=== PATIENT | male | born 1960 | race Caucasian/White ===

== ENCOUNTER 2022-11-26 11:56 | Inpatient (IN) | payer SELFPAY ==
[2022-11-26] VITALS (8 sets, daily range): BP systolic 136–173; BP diastolic 61–118; PULSE 50–70; RESP 16–18; TEMP 36.4–36.8; O2SAT 95–100; BMI 23.6; BMI 22.5
--- NOTE | 2022-11-26 12:41 | EKG12_ITS ---
Test Reason : NEURO Blood Pressure : / mmHG Vent. Rate : 061 BPM Atrial Rate : 061 BPM P-R Int : 170 ms QRS Dur : 088 ms QT Int : 434 ms P-R-T Axes : 072 043 048 degrees QTc Int : 436 ms Normal sinus rhythm with sinus arrhythmia Normal ECG Confirmed by JOSE NEGRON, MAEVE ([id number]), advertising editor CLIFFORD PHILLIPS ([id number]) on 11/27/2022 2:22:19 PM Referred By: Confirmed By:MAEVE GARCIA MD
--- NOTE | 2022-11-26 12:50 | CT_ITS ---
INDICATION: Neuro deficit, acute, stroke suspected EXAMINATION: CT BRAIN WITH CONTRAST TECHNIQUE: Noncontrast axial images were obtained of the brain. Subsequently, routine carotid CT angiogram protocol was performed without and with IV contrast. In addition, images were obtained of the [place] of [place]. NASCET criteria using the distal ICAs for comparison were used for evaluation of stenoses. 3D reconstructions were reviewed. A radiation dose optimization technique was used for this scan. IV Contrast dosage and agent: 100 cc of [id number] COMPARISON: No relevant prior comparison study available FINDINGS: --CT BRAIN: BRAIN PARENCHYMA: No intra- or extra-axial hemorrhage. No evidence of acute infarct. No intracranial mass or mass effect. There is preservation of the person/white matter interface. Posterior fossa structures are unremarkable. CSF SPACES: Appropriate for age. No hydrocephalus. Basal cisterns are patent. CALVARIUM, SKULL BASE, PARANASAL SINUSES AND MASTOID AIR CELLS: Clear. No discrete lytic or blastic abnormalities. ASPECTS Score for Acute Strokes: 10 --CTA NECK: AORTIC ARCH AND BRANCHES: Normal anatomy, patent. RIGHT CCA: No occlusion, significant stenosis or dissection. RIGHT ICA: No occlusion, significant stenosis or dissection. LEFT CCA: No occlusion, significant stenosis or dissection. LEFT ICA: No occlusion, significant stenosis or dissection. RIGHT VERTEBRAL ARTERY: No occlusion, significant stenosis or dissection. LEFT VERTEBRAL ARTERY: No occlusion, significant stenosis or dissection. NECK SOFT TISSUES: Unremarkable. There are emphysematous changes within the visualized lungs. --CTA HEAD: --Anterior circulation: ICAs: No significant stenosis at the intracranial/visualized segments. ACAs: No significant stenosis at the visualized segments. ACOM: Present. MCAs: No significant stenosis at the visualized segments. --Posterior circulation: PCOMs: Within normal limits. pci security consultant: No significant stenosis at the visualized segments. BASILAR ARTERY: No significant stenosis. VERTEBRAL ARTERIES: No significant stenosis at the intradural/visualized segments. No evidence of intracranial aneurysm or vascular malformation. IMPRESSION: Within normal limits CT Brain, CTA Carotid, and CTA Brain. Emphysema. N.B. : The above Results were Read Back by Lo Bishop MD to Noé Vasquez DO, and understanding confirmed on 11/26/2022 13:29:32 (ET). Electronically Signed: Lo Bishop MD at 13:31 EDT , INDICATION: Neuro deficit, acute, stroke suspected EXAMINATION: CT BRAIN - CT Head Stroke Protocol W/O Contrast Injection TECHNIQUE: Multiple axial images were obtained of the head without intravenous contrast. A radiation dose optimization technique was used for this scan. IV Contrast dosage and agent: None. RADIATION DOSAGE (If Supplied By Facility): CTDIvol = ( ) mGy, DLP = ( ) mGycm COMPARISON: No relevant prior comparison study available FINDINGS: BRAIN PARENCHYMA: No intra- or extra-axial hemorrhage. No evidence of acute infarct. No intracranial mass or mass effect. There is preservation of the person/white matter interface. Posterior fossa structures are unremarkable. CSF SPACES: Appropriate for age. No hydrocephalus. Basal cisterns are patent. CALVARIUM, SKULL BASE, PARANASAL SINUSES AND MASTOID AIR CELLS: Clear. No discrete lytic or blastic abnormalities. ORBITS: Both globes, extraocular muscles, optic nerves and retrobulbar fat appear unremarkable. ASPECTS Score for Acute Strokes: 10 CT/STROKE CTA Head AND Neck W/Con IMPRESSION: No acute intracranial process. N.B. : The above Results were Read Back by Lo Bishop MD to Noé Vasquez DO, and understanding confirmed on 11/26/2022 13:29:32 (ET). Electronically Signed: Lo Bishop MD at 13:21 EDT ,
--- NOTE | 2022-11-26 12:55 | RAD_ITS ---
STUDY: X-RAY CHEST REASON FOR EXAM: Male, 62 years old. Neuro deficit, acute, stroke suspected TECHNIQUE: AP and lateral views of the chest. COMPARISON: None. FINDINGS: The lungs are clear and expanded. There is no demonstrated pleural abnormality. Normal size heart. Normal mediastinum and liv. Normal visualized pulmonary arteries. Normal visualized aortic arch and descending thoracic aorta. There is demineralization of the osseous structures. Normal visualized ribs, clavicles, and shoulders. There is no demonstrated abnormality of the visualized soft tissue structures of the upper abdomen. RAD/Chest 1 View IMPRESSION: No acute abnormality seen. Electronically Signed: Siva De Luna MD at 13:55 EDT ,
[2022-11-26 13:05] LABS: Basophil# 0.04 X10^3/uL; Basophil% 0.7 % (0-1); Eosinophil# 0.16 X10^3/uL; Eosinophils% 2.6 % (0-5); Hematocrit 47.6 % (40-54); Hemoglobin 15.8 g/dL (13.0-16.5); Lymphocyte % 21.5 % (19-41); Mean Corp Hgb Conc 33.2 g/dL (32-36); Mean Corpuscular Hgb 32.6 pg (27.0-32.0); Mean Corpuscular Volume 98.3 fL (80-94); Mean Platelet Vol. 10.3 fl (6.2-12.0); Monocyte% 8.3 % (0-10); NRBC Flagged by Analyzer 0 % (0-5); Neutrophil # 4.04 X10^3/uL (2.7-7.7); Neutrophil % 66.7 % (47-70); POSITIVE COUNT YES; RBC Distribution Width CV 13.7 % (11.6-14.6); Red Blood Count 4.84 M/mm3 (4.6-6.2); White Blood Count 6.1 K/mm3 (4.4-11.0)
[2022-11-26 13:26] LABS: International Normalized Ratio 1.1
[2022-11-26 13:27] LABS: Partial Thromboplast Time 28.9 Seconds (24.1-36.2)
[2022-11-26 13:39] LABS: Anion Gap 5 (5-15); BUN 19 mg/dL (7-18); BUN/Creat Ratio 21.7 RATIO (10-20); Calcium,Total 8.8 mg/dL (8.5-10.1); Chloride 111 mmol/L (98-107); Creatinine, Serum 0.88 mg/dL (0.70-1.30); EST Glomerular Filtration Rate 93 mL/min (>60); Est Glom Filt Rate - Afr Amer 113 mL/min (>60); Glucose 115 mg/dL (74-106); Potassium 3.5 mmol/L (3.5-5.1); Sodium Level 140 mmol/L (136-145); Troponin-I HS 7 pg/mL (3.0-78.0)
--- NOTE | 2022-11-26 13:59 | CM.ED ---
Social Work Referral Source: case find Referral Reason: resources SW met with patient and patient's and introduced herself and role as [facility] SW. Patient agreeable to speak with his present. SW inquired about patient's insurance or application for Medicare. Patient reports he has applied for Medicare and should be insured starting in January. Patient does not believe he will qualify for Medicaid but was receptive towards accepting Medicaid application to review. SW also reviewed local community resources. No other needs voiced at this time, SW remains available if needs arise. Coco Aguilar OPERATIONS MANAGER, JESSENIA
[2022-11-26 14:21] LABS: Differential Indicated SCAN CRITERIA MET; Platelet Estimate ADEQUATE (ADEQ)
--- NOTE | 2022-11-26 15:24 | ED.RN ---
PER DR. CARRILLO, [facility] Q4 HRS
--- NOTE | 2022-11-26 15:25 | PCM.HP.STD ---
HPI - General General Date of Admission: 11/26/22 Date of Service: 11/26/22 HPI Narrative CHARAN GARCIA, is a 62 M who presents difficulty with coordination involving the left side. Per patient symptoms started 4 days prior to his admission. In addition to difficulty with dexterity and motor function according to the patient involving the left upper extremity he also did experience some numbness on the left side as well as some difficulty with gait. Per family patient also had some speech difficulty which has since resolved. In view of of the intermittent nature of his symptoms he presented to the emergency department initial head CT came back negative subsequently admitted to a monitored bed for further manner [facility] Medical History GERD (gastroesophageal reflux disease) Home Medications esomeprazole magnesium 20 mg capsule,delayed release 20 mg PO DAILY 11/26/22 [History Last Taken 11/26/22] naproxen 500 mg tablet 500 mg PO BID PRN pain 11/26/22 [History Last Taken Unknown] olopatadine 0.2 % eye drops (Eye Allergy Itch Relief) 1 drp EACH EYE DAILY PRN ALLERGIES 11/26/22 [History Last Taken Unknown] Allergy/AdvReac Type Severity Reaction Status Date / Time No Known Allergies Allergy Verified 11/26/22 12:00 Family History (Updated 11/26/22 @ 16:[address] Charan Martinez MD) Mother CVA (cerebral vascular accident) Surgical History (Updated 11/26/22 @ 15:30 by Quynh Goldberg) History of ankle surgery Social History Smoking Status: Current every day smoker tobacco type: cigarettes Vital Signs Vital Signs Vital Signs: 11/26/22 11:58 11/26/22 12:44 11/26/22 12:44 Temperature 97.5 F L Temperature Source Temporal Pulse Rate 70 Respiratory Rate 16 Blood Pressure 138/118 H 148/72 H 136/61 H Blood Pressure Mean 124 97 86 Pulse Ox 100 Oxygen Delivery Method Room Air 11/26/22 14:00 11/26/22 15:00 Temperature Temperature Source Pulse Rate 50 L Respiratory Rate 18 Blood Pressure 136/61 H 154/71 H Blood Pressure Mean 86 98 Pulse Ox 97 Oxygen Delivery Method Room Air Weight Weight: 72.575 kg Body Mass Index (BMI) 23.6 Physical Exam Narrative GENERAL: cooperative HEENT: Atraumatic; normocephalic EYES; Anicteric, Normal Conjunctiva NECK; supple, normal thyroid, RESPIRATORY: Diminished to auscultation CARDIOVASCULAR: Regular S1 S2, GI: soft, normoactive bowel sounds, : No Renal angle tenderness; EXTREMITIES: No edema, no clubbing, MUSCULOSKELETAL: no muscle wasting NEURO: Awake; no lateralizing signs. SKIN: No Rash PSYCH; Flat affect Results Lab / Micro Data 11/26/22 12:40 11/26/22 12:40 Labs: Laboratory Results - last 24 hr 11/26/22 12:40: WBC 6.1, RBC 4.84, Hgb 15.8, Hct 47.6, MCV 98.3 H, MCH 32.6 H, MCHC 33.2, RDW Std Deviation 50.0 H, RDW Coeff of Birdie 13.7, Plt Count , MPV 10.3, Immature Gran % (Auto) 0.200, Neut % (Auto) 66.7, Lymph % (Auto) 21.5, [place] % (Auto) 8.3, Eos % (Auto) 2.6, Baso % (Auto) 0.7, Absolute Neuts (auto) 4.0, Absolute Lymphs (auto) 1.30, Nucleated RBC % 0, Platelet Estimate ADEQUATE, PT Cancelled, INR Cancelled, APTT Cancelled, Sodium 140, Potassium 3.5, Chloride 111 H, Carbon Dioxide 24.0, Anion Gap 5, BUN 19 H, Creatinine 0.88, Estim Creat Clear Calc 84.80, Est GFR (MDRD) Af Amer 113, Est GFR (MDRD) Non-Af 93, BUN/Creatinine Ratio 21.7 H, Glucose 115 H, Calcium 8.8, Troponin I High Sens 7 11/26/22 13:03: PT 14.0, INR 1.1, APTT 28.9 Radiology Impression Head/Neck CTA 11/26/22 12:50 IMPRESSION: No acute intracranial process. N.B. : The above Results were Read Back by Lo Bishop MD to Noé Vasquez DO, and understanding confirmed on 11/26/2022 13:29:32 (ET). Electronically Signed: Lo Bishop MD at 13:21 EDT Reading Location ID and State: [facility] / [place] Tel , Service support , ADDENDUM: 11/26/22 1338 IMPRESSION: No acute intracranial process. N.B. : The above Results were Read Back by Lo Bishop MD to Noé Vasquez DO, and understanding confirmed on 11/26/2022 13:29:32 (ET). Electronically Signed: Lo Bishop MD at 13:21 EDT , Assessment & Plan Assessment/Plan (1) TIA (transient ischemic attack): PLAN: Plan Patient is a 62-year-old gentleman presenting with paresthesias in multiple difficulty involving the left upper extremity 1. Transient ischemic attack ? Patient presented with multiple complaints including left upper arm paresthesias, gait disturbance, intermittent speech difficulty which has since resolved. Admitted to monitored bed ordered neurochecks every [address] angio of the head and neck in the emergency department which came back negative subsequently placed on a monitored bed. Ordered MRI of the head as well as cervical spine without contrast. Patient started on antiplatelet therapy with aspirin and statin therapy with atorvastatin 2. Elevated blood pressure ? Patient is not a known hypertensive monitoring 3. GERD ? Patient is on [id number] PPI prescribed Protonix in the hospital 4. Tobacco dependence - Counseled on cessation, offered nicotine patch for tobacco cravings 5. DVT prophylaxis - On enoxaparin Time spent in the patient's overall evaluation,decision-making process, review of diagnostic data, adjustment of management, discussion with other providers, nursing nursing and ancillary staff involved in patient's care documentation, 75 minutes Advance planning; did discuss with the patient and family regarding advanced directives as well as CODE STATUS. Did explain the various scenarios involved ( FULL CODE, DNR CCA, DNR CCA with no intubation, and DNR CC and what each meant) patient elected full code with CPR and intubation if needed. Order was placed. Time spent on discussion 18 minutes. Charges/Coding Visit Charges Inpatient E&M: 07630 Init Hosp L3 Procedures Hospitalists Procedures: 53792 Advncd Care Plan 30 Min
[2022-11-26] MEDS: Aspirin 325 MG Tablet PO (15:33)
--- NOTE | 2022-11-26 16:05 | ECHOD_ITS ---
Reason For Study: TIA/ CVA Procedure This was a 2D Doppler, Color Flow transthoracic echocardiogram. Exam performed portable in patient room. Left Ventricle Normal LV size. Left ventricular systolic function is normal. Normal diastology for age. The estimated ejection fraction is 60 %. No regional wall motion abnormalities noted. Right Ventricle Normal RV size. Normal systolic function. Atria The left and right atria are normal. Bubble contrast study negative for right to left interatrial shunt. Mitral Valve The mitral valve is structurally normal. No prolapse or stenosis seen. No mitral valve insufficiency. Tricuspid Valve Normal tricuspid valve. Trivial tricuspid valve insufficiency. Unable to estimate RV systolic pressure due to insufficient tricuspid regurgitant envelope. Aortic Valve Trisinus/trileaflet aortic valve. Mild focal aortic valve thickening. There is no aortic stenosis. Trivial aortic valve insufficiency. Pulmonic Valve The pulmonic valve is not well visualized. Great Vessels Normal aortic root. Pericardium/Pleural No pericardial effusion. Medication Performed a rapid injection of agitated mix of 9 cc saline and 1cc air to assess for atrial septal defect. MMode/2D Measurements & Calculations LVIDd: 4.6 cm IVSd: 0.86 cm Ao root diam: 2.9 cm LVIDs: 2.7 cm LVPWd: 1.1 cm FS: 41.1 % LAV(MOD-bp): 38.6 ml LVAd ap4: 25.5 cm2 SV(MOD-sp4): 47.1 ml LAV(MOD-bp) Indexed: 20.5 ml/m2 LVLd ap4: 7.2 cm LAV(MOD-sp2): 47.9 ml EDV(MOD-sp4): 74.0 ml LAV(MOD-sp4): 30.6 ml EDV(sp4-el): 76.5 ml LVAs ap4: 14.0 cm2 LVLs ap4: 6.1 cm ESV(MOD-sp4): 26.9 ml ESV(sp4-el): 27.3 ml EF(MOD-sp4): 63.7 % EF(sp4-el): 64.3 % SV(sp4-el): 49.2 ml LA A4 area: 14.5 cm2 LA dimension(2D): 3.3 cm RA A4 area: 14.7 cm2 TAPSE: 2.7 cm Time Measurements MV dec time: 0.22 sec Doppler Measurements & Calculations MV E max sal: 87.0 cm/sec Lat Peak E' Sal: 9.8 cm/sec Med Peak E' Sal: 11.6 cm/sec MV A max sal: 70.6 cm/sec E/E' lat: 8.8 E/E' med: 7.5 MV E/A: 1.2 MV V2 max: 88.0 cm/sec MV P1/2t max sal: 90.5 cm/sec Ao V2 max: 101.0 cm/sec MV max P.1 mmHg MV P1/2t: 73.3 msec Ao max P.1 mmHg MV V2 mean: 43.0 cm/sec MV dec slope: 361.7 cm/sec2 Ao V2 mean: 58.7 cm/sec MV mean P.92 mmHg MVA(P1/2t): 3.0 cm2 Ao mean P.6 mmHg MV V2 VTI: 29.4 cm Ao V2 VTI: 17.4 cm AV (velocity ratio): 1.1 LV V1 max: 95.4 cm/sec PA V2 max: 74.0 cm/sec LV V1 max P.6 mmHg LV V1 mean P.4 mmHg LV V1 mean: 54.7 cm/sec LV V1 VTI: 19.5 cm ECHO/Echo Complete Interpretation Summary The estimated ejection fraction is 60 %. Trivial tricuspid valve insufficiency. Trivial aortic valve insufficiency. Bubble contrast study negative for right to left interatrial shunt. Ordering Physician: Malahci Martinez Performed By: Hortensia Ayala and Student
--- NOTE | 2022-11-26 16:11 | EDS_ITS ---
HPI History of Present Illness Chief Complaint: Neuro S/Sx Narrative Narrative: Patient is a 62-year-old male who is presenting to the ER with stroke symptoms. Patient's symptoms started on Thursday. Patient had numbness, tingling and weakness to the left arm, also weakness to his left leg as well. Patient had difficulty with function of his left arm and left leg. Patient also had some speech deficits son and wanted to have resolved. Patient has not seen a doctor in over 10 to 15 years. Patient smokes at least a pack of cigarettes a day. Rare alcohol, patient lives at home with family. Patient's and daughter at home. Patient takes no medications daily. Patient has been taking a baby aspirin since Thursday. Patient's numbness and tingling and weakness in his left arm and leg have improved, but patient still having dexterity problems with his left hand and also difficulty walking with his left leg. Patient has no speech deficits today. Patient's symptoms have also been intermittent Thursday, Thursday and Thursday. Patient is finally presenting to the ER today. Patient has no headache, not lightheaded or dizzy. No chest pain or shortness of breath. No abdominal pain, nausea or vomiting, no other acute complaints. [facility] Medical History GERD (gastroesophageal reflux disease) Home Medications esomeprazole magnesium 20 mg capsule,delayed release 20 mg PO DAILY 11/26/22 [History Last Taken 11/26/22] naproxen 500 mg tablet 500 mg PO BID PRN pain 11/26/22 [History Last Taken Unknown] olopatadine 0.2 % eye drops (Eye Allergy Itch Relief) 1 drp EACH EYE DAILY PRN ALLERGIES 11/26/22 [History Last Taken Unknown] Allergy/AdvReac Type Severity Reaction Status Date / Time No Known Allergies Allergy Verified 11/26/22 12:00 Family History (Updated 11/26/22 @ 16:[address] Malachi Martinez MD) Mother CVA (cerebral vascular accident) Surgical History (Updated 11/26/22 @ 15:30 by Quynh Goldberg) History of ankle surgery Social History Smoking Status: Current every day smoker tobacco type: cigarettes ROS ROS ED ROS Narrative REVIEW OF SYSTEMS: Unless otherwise stated in this report the patient's positive and negative responses for review of systems for constitutional, eyes, ENT, cardiovascular, respiratory, gastrointestinal, neurological, , musculoskeletal, and integument systems and related systems to the presenting problem are either stated in the history of present illness or were not pertinent or were negative for the symptoms and/or complaints related to the presenting medical problem. EXAM Physical Exam Narrative Exam Narrative: Vital signs reviewed and patient is not hypoxic. General: The patient appears well and in no apparent distress. Patient is resting comfortably on cart. Not toxic, lethargic, or listless. Skin: Warm, dry, no pallor noted. There is no rash noted. Head: Normocephalic, , no carotid bruits bilateral. Atraumatic Eye: Normal conjunctiva, no drainage, EOMI. PERRL. Ears, Nose, Mouth, and Throat: oral mucosa is moist. Nares patent. Mouth without vesicles. Cardiovascular: Regular Rate and Rhythm, no murmurs, gallops, or rubs Respiratory: Patient is in no distress, no accessory muscle use, lungs are clear to auscultation, no wheezing, rales or rhonchi Back: non-tender, no CVA tenderness bilaterally to percussion. NO CTLS midline or paraspinal tenderness to palpation. GI: Soft, no tenderness to palpation, no masses appreciated. No rebound, guarding, or rigidity noted. Musculoskeletal: The patient has full range of motion of all extremities and joints with no difficulty. Patient has no motor, no sensory deficits. Neurological: A&O x4, normal speech, no focal neurological deficits. NIH 1, patient has slight difficulty with [id number] testing on the left and also slight difficulty with needed strickland testing with his left leg as well. No speech deficit. Psychiatric: Cooperative Const Vital Signs: 11/26/22 11:58 11/26/22 12:44 11/26/22 12:44 Temperature 97.5 F L Temperature Source Temporal Pulse Rate 70 Respiratory Rate 16 Blood Pressure 138/118 H 148/72 H 136/61 H Blood Pressure Mean 124 97 86 Pulse Ox 100 Oxygen Delivery Method Room Air 11/26/22 14:00 11/26/22 15:00 Temperature Temperature Source Pulse Rate 50 L Respiratory Rate 18 Blood Pressure 136/61 H 154/71 H Blood Pressure Mean 86 98 Pulse Ox 97 Oxygen Delivery Method Room Air MDM MDM MDM Narrative Medical decision making narrative: Patient was given a full aspirin. Patient had a CTA of the head neck that showed no acute abnormalities. Patient has a history of tobacco abuse, also medical noncompliance. Lab work shows no significant findings. Patient be admitted for further stroke work-up. Patient does have some mild dexterity/ataxia issues that are lingering with his left hand and left leg. However, most of his symptoms have resolved that he has been experiencing on Thursday, Thursday and Thursday with numbness, tingling, and more pronounced weakness to the left arm and leg. Patient also had some mild dysarthria Thursday and Thursday that has resolved as well. Patient was given a full aspirin. Patient be admitted for further stroke evaluation. Patient was seen evaluated by Dr. Martinez in the ER. Lab Data Attestation: I reviewed the patient's lab results. Labs: Laboratory Results - last 24 hr 11/26/22 11/26/22 12:40 13:03 WBC 6.1 RBC 4.84 Hgb 15.8 Hct 47.6 MCV 98.3 H MCH 32.6 H MCHC 33.2 RDW Std Deviation 50.0 H RDW Coeff of Birdie 13.7 Plt Count MPV 10.3 Immature Gran % (Auto) 0.200 Neut % (Auto) 66.7 Lymph % (Auto) 21.5 [place] % (Auto) 8.3 Eos % (Auto) 2.6 Baso % (Auto) 0.7 Absolute Neuts (auto) 4.0 Absolute Lymphs (auto) 1.30 Nucleated RBC % 0 Platelet Estimate ADEQUATE PT Cancelled 14.0 INR Cancelled 1.1 APTT Cancelled 28.9 Sodium 140 Potassium 3.5 Chloride 111 H Carbon Dioxide 24.0 Anion Gap 5 BUN 19 H Creatinine 0.88 Estim Creat Clear Calc 84.80 Est GFR (MDRD) Af Amer 113 Est GFR (MDRD) Non-Af 93 BUN/Creatinine Ratio 21.7 H Glucose 115 H Calcium 8.8 Troponin I High Sens 7 Radiography Diagnostic Testing: Clinical Impression(s) from Imaging Studies Head/Neck CTA 11/26/22 12:50 IMPRESSION: No acute intracranial process. N.B. : The above Results were Read Back by Lo Bishop MD to Noé Vasquez DO, and understanding confirmed on 11/26/2022 13:29:32 (ET). Electronically Signed: Lo Bishop MD at 13:21 EDT , ADDENDUM: 11/26/22 1338 IMPRESSION: No acute intracranial process. N.B. : The above Results were Read Back by Lo Bishop MD to Noé Vasquez DO, and understanding confirmed on 11/26/2022 13:29:32 (ET). Electronically Signed: Lo Bishop MD at 13:21 EDT , EKG Initial EKG: Attestation: I personally reviewed and interpreted this EKG as follows: Comments: EKG interpretation. Normal sinus rhythm at 61 beats a minute. Normal axis deviation. No acute ST elevation, no acute ectopy. QTc of 436. Discharge Plan Dx/Rx/DC Orders Clinical Impression: Left-sided weakness, Tobacco abuse Disposition Disposition: Acute Care Hospital [facility] Discharge Date/Time: 11/26/22 15:58
[2022-11-26] MEDS: 0.9% Saline Lock 10 ML Syringe IV (17:19)
[2022-11-26] MEDS: 0.9% Normal Saline 1,000 ML 75 ML IV (17:19)
[2022-11-26] MEDS: Atorvastatin Calcium 80 MG Tablet PO (21:29)
[2022-11-26] MEDS: Famotidine 20 MG Tablet PO (21:29)
[2022-11-27] VITALS (7 sets, daily range): BP systolic 126–164; BP diastolic 59–79; PULSE 52–68; RESP 16–18; TEMP 36.4–36.9; O2SAT 93–100; BMI 22.5
[2022-11-27] MEDS: 0.9% Normal Saline 1,000 ML 75 ML IV (05:38)
[2022-11-27 06:24] LABS: Absolute Lymphocyte Count 1.36 X10^3/uL (0.83-4.51); Absolute Neutrophil Count 4.3 X10^3/uL (2.0-7.7); Basophil# 0.05 X10^3/uL; Basophil% 0.8 % (0-1); Eosinophil# 0.24 X10^3/uL; Eosinophils% 3.7 % (0-5); Hematocrit 41.6 % (40-54); Hemoglobin 14.1 g/dL (13.0-16.5); Lymphocyte # 1.36 X10^3/ul (0.83-4.51); Lymphocyte % 20.8 % (19-41); Mean Corp Hgb Conc 33.9 g/dL (32-36); Mean Corpuscular Hgb 32.8 pg (27.0-32.0); Mean Corpuscular Volume 96.7 fL (80-94); Mean Platelet Vol. 9.6 fl (6.2-12.0); Monocyte# 0.52 X10^3/uL; NRBC Flagged by Analyzer 0 % (0-5); Neutrophil # 4.34 X10^3/uL (2.7-7.7); Neutrophil % 66.4 % (47-70); Platelet Count 239 K/mm3 (150-450); RBC Distribution Width CV 13.5 % (11.6-14.6); RBC Distribution Width SD 48.3 fl (35.1-43.9); White Blood Count 6.5 K/mm3 (4.4-11.0)
[2022-11-27 06:58] LABS: AST(SGOT) 9 U/L (15-37); Alanine Aminotransfer ALT/SGPT 16 U/L (16-61); Albumin, Serum 2.8 g/dL (3.2-5.0); Alkaline Phosphatase 59 U/L (45-117); Anion Gap 3 (5-15); BUN 17 mg/dL (7-18); BUN/Creat Ratio 19.4 RATIO (10-20); Calcium,Total 8.1 mg/dL (8.5-10.1); Chloride 111 mmol/L (98-107); Cholesterol 201 mg/dL (200); Creatinine, Serum 0.88 mg/dL (0.70-1.30); EST Glomerular Filtration Rate 93 mL/min (>60); Est Glom Filt Rate - Afr Amer 113 mL/min (>60); Estimated Creatinine Clearance 83.01 ml/min; Globulin 2.8 g/dL (2.2-4.2); Glucose 93 mg/dL (74-106); High Density Lipoprotein 36 mg/dL; Magnesium 2.1 mg/dL (1.6-2.6); Phosphorus 2.6 mg/dL (2.5-4.9); Potassium 3.7 mmol/L (3.5-5.1); Protein, Total 5.6 g/dL (6.4-8.2); Sodium Level 139 mmol/L (136-145); Thyroid Stim Hormone (TSH) 2.62 uIU/mL (0.358-3.74); Triglycerides 116 mg/dL; Very Low Density Lipoprotein 23 mg/dL (5-40)
--- NOTE | 2022-11-27 08:12 | PCM.PN.HOSP ---
Reason for Visit Reason for Visit: Diagnoses Transient cerebral ischemic attack, unspecified (11/26/22) Subjective Subjective Patient seen complains of feeling tired. MRI of the brain without contrast obtained did show Prominent subacute ischemic infarct in the right upper alessio extending from the belly to the right paracentral pontine tegmentum extending from the belly of the alessio an smaller subacute ischemic infarcts in the peripheral aspect of the right upper pontine tegmentum. They are most likely from right basilar artery bridge rigger thromboembolic occlusion MRI of the cervical spine did demonstrate No MRI evidence of cervical extruded disc fragment. Mild C4-C5 intervertebral osteochondritis (Modic type I) and moderate stenosis of the right C4-C5 intervertebral neural foramen due to prominent bone spur. Moderate C6-C7 intervertebral osteochondritis (Modic type I). Normal cervical spinal cord. Objective Data Objective Data Vital Signs: Vital Signs Temp Pulse Resp BP Pulse Ox O2 Del Method 97.5 F L 54 L 17 164/74 H 97 Room Air 11/27/22 07:54 11/27/22 07:54 11/27/22 07:54 11/27/22 07:54 11/27/22 07:54 11/27/22 07:54 Oxygen Delivery Method Room Air Weight: 69.2 kg Body Mass Index (BMI) 22.5 Intake & Output: Intake and Output for Last 24 Hours 11/25/22 11/26/22 11/27/22 23:59 23:59 23:59 Intake Total 300 / 540 1403.75 / 1403.75 Balance 300 / 540 1403.75 / 1403.75 Lab / Micro Data 11/27/22 05:52 11/27/22 05:52 Labs: Laboratory Results - last 24 hr 11/26/22 12:40: WBC 6.1, RBC 4.84, Hgb 15.8, Hct 47.6, MCV 98.3 H, MCH 32.6 H, MCHC 33.2, RDW Std Deviation 50.0 H, RDW Coeff of Birdie 13.7, Plt Count , MPV 10.3, Immature Gran % (Auto) 0.200, Neut % (Auto) 66.7, Lymph % (Auto) 21.5, Hodgeman % (Auto) 8.3, Eos % (Auto) 2.6, Baso % (Auto) 0.7, Absolute Neuts (auto) 4.0, Absolute Lymphs (auto) 1.30, Nucleated RBC % 0, Platelet Estimate ADEQUATE, PT Cancelled, INR Cancelled, APTT Cancelled, Sodium 140, Potassium 3.5, Chloride 111 H, Carbon Dioxide 24.0, Anion Gap 5, BUN 19 H, Creatinine 0.88, Estim Creat Clear Calc 84.80, Est GFR (MDRD) Af Amer 113, Est GFR (MDRD) Non-Af 93, BUN/Creatinine Ratio 21.7 H, Glucose 115 H, Calcium 8.8, Troponin I High Sens 7 11/26/22 13:03: PT 14.0, INR 1.1, APTT 28.9 11/27/22 05:52: WBC 6.5, RBC 4.30 L, Hgb 14.1, Hct 41.6, MCV 96.7 H, MCH 32.8 H, MCHC 33.9, RDW Std Deviation 48.3 H, RDW Coeff of Birdie 13.5, Plt Count 239, MPV 9.6, Immature Gran % (Auto) 0.300, Neut % (Auto) 66.4, Lymph % (Auto) 20.8, Hodgeman % (Auto) 8.0, Eos % (Auto) 3.7, Baso % (Auto) 0.8, Absolute Neuts (auto) 4.3, Absolute Lymphs (auto) 1.36, Nucleated RBC % 0, Sodium 139, Potassium 3.7, Chloride 111 H, Carbon Dioxide 25.0, Anion Gap 3 L, BUN 17, Creatinine 0.88, Estim Creat Clear Calc 83.01, Est GFR (MDRD) Af Amer 113, Est GFR (MDRD) Non-Af 93, BUN/Creatinine Ratio 19.4, Glucose 93, Calcium 8.1 L, Phosphorus 2.6, Magnesium 2.1, Total Bilirubin 0.50, AST 9 L, ALT 16, Alkaline Phosphatase 59, Total Protein 5.6 L, Albumin 2.8 L, Globulin 2.8, Albumin/Globulin Ratio 1.0, Triglycerides 116, Cholesterol 201 H, LDL Cholesterol 142 H, VLDL Cholesterol 23, HDL Cholesterol 36 L, TSH 2.62 Radiography Diagnostic Testing: Radiology Impression Head/Neck CTA 11/26/22 12:50 IMPRESSION: No acute intracranial process. N.B. : The above Results were Read Back by Lo Bishop MD to Noé Vasquez DO, and understanding confirmed on 11/26/2022 13:29:32 (ET). Electronically Signed: Lo Bishop MD at 13:21 EDT , Physical Exam Narrative GENERAL: cooperative HEENT: Atraumatic; normocephalic EYES; Anicteric, Normal Conjunctiva NECK; supple, normal thyroid, RESPIRATORY: Diminished to auscultation CARDIOVASCULAR: Regular S1 S2, GI: soft, normoactive bowel sounds, : No Renal angle tenderness; EXTREMITIES: No edema, no clubbing, MUSCULOSKELETAL: no muscle wasting NEURO: Awake; no lateralizing signs. SKIN: No Rash PSYCH; Flat affect Assessment & Plan Assessment/Plan (1) TIA (transient ischemic attack): PLAN: Plan Patient is a 62-year-old gentleman presenting with paresthesias in multiple difficulty involving the left upper extremity 1. Acute ischemic CVA ? Patient presented with multiple complaints including left upper arm paresthesias, gait disturbance, intermittent speech difficulty which has since resolved. Admitted to monitored bed ordered neurochecks every [address] angio of the head and neck in the emergency department which came back negative subsequently placed on a monitored bed. Ordered MRI of the head as well as cervical spine without contrast. Patient started on antiplatelet therapy with aspirin and statin therapy with atorvastatin ? 11/27/2022;MRI of the brain without contrast obtained did show Prominent subacute ischemic infarct in the right upper alessio extending from the belly to the right paracentral pontine tegmentum extending from the belly of the alessio an smaller subacute ischemic infarcts in the peripheral aspect of the right upper pontine tegmentum. They are most likely from right basilar artery bridge rigger thromboembolic occlusion - MRI of the cervical spine did demonstrate No MRI evidence of cervical extruded disc fragment. Mild C4-C5 intervertebral osteochondritis (Modic type I) and moderate stenosis of the right C4-C5 intervertebral neural foramen due to prominent bone spur. Moderate C6-C7 intervertebral osteochondritis (Modic type I). Normal cervical spinal cord. -Consult subsequently placed to telemetry neurology 2. New onset hypertension ? Patient blood pressure control not optimal however given his acute ischemic event plan is to gradually lower his blood pressure. 3. Dyslipidemia ? With total cholesterol of 201 and LDL of 142. Patient started on high-dose statin with LDL goal of less than 70 4. GERD ? Patient is on [id number] PPI prescribed Protonix in the hospital 5.. Tobacco dependence - Counseled on cessation, offered nicotine patch for tobacco cravings 6. DVT prophylaxis - On enoxaparin Time spent in the patient's overall evaluation,decision-making process, review of diagnostic data, adjustment of management, discussion with other providers, nursing nursing and ancillary staff involved in patient's care documentation, 50 minutes Charges/Coding Visit Charges Inpatient E&M: 43345 Subs Hosp L3
--- NOTE | 2022-11-27 10:55 | MRI_ITS ---
We are attempting to reach an attending provider to discuss findings. An addendum with communication details will be sent when the communication is complete. EXAM: MR HEAD WITHOUT INTRAVENOUS CONTRAST CLINICAL INDICATION: CVA. TECHNIQUE: Multiplanar and multisequence MR images of the brain were obtained without intravenous contrast. CONTRAST: None. COMPARISON: CT head without contrast and CTA head and neck with contrast 11/26/2022. FINDINGS: BRAIN AND EXTRA-AXIAL SPACES: Prominent thick band of diffusion restriction in the right upper paracentral pontine tegmentum and to a lesser degree in the peripheral aspect of the right pontine tegmentum. These are confirmed on ADC map. They are also hyperintense on T2 FLAIR sequences. They are consistent with prominent subacute ischemic infarct right upper pontine tegmentum extending posteriorly from the belly of the alessio. No intra- or extra-axial hemorrhage. No intracranial mass or mass effect. Basal cisterns are patent. SELLA: Unremarkable. Normal sella turcica, pituitary gland, infundibular stalk, optic chiasm and hypothalamus. AUDITORY SYSTEM: Unremarkable. The internal auditory canals are patent. BONES/JOINTS: Unremarkable. No discrete lytic or blastic abnormalities. SINUSES: Mucosal thickening in the left sphenoid sinus. Normal remaining paranasal sinuses. MASTOID AIR CELLS: Unremarkable as visualized. Clear. ORBITS: Unremarkable as visualized. Both globes, extraocular muscles, optic nerves and retrobulbar fat appear unremarkable. VASCULATURE: Unremarkable as visualized. Normal flow voids in the major intracranial circulation. MRI/Brain without Contrast IMPRESSION: Prominent subacute ischemic infarct in the right upper alessio extending from the belly to the right paracentral pontine tegmentum extending from the belly of the alessio and smaller subacute ischemic infarcts in the peripheral aspect of the right upper pontine tegmentum. 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 Electronically Signed: Ronnie aWlker MD at 11:20 EDT ,
--- NOTE | 2022-11-27 10:55 | MRI_ITS ---
STUDY: MRI CERVICAL SPINE WITHOUT CONTRAST REASON FOR EXAM: Male, 62 years old. Left upper extremity paresthesias TECHNIQUE: Standardized fat and water weighted pulse sequences were obtained in the sagittal and axial planes. COMPARISON: None FINDINGS: Normal foramen magnum and brainstem-cervical cord junction. Normal craniovertebral junction. Normal anterior atlantoaxial articulation. Normal odontoid process. Normal cervical lordosis. Normal vertebral bodies and posterior osseous elements. C2-3: Normal endplates. Normal disc height, signal and morphology. Normal central canal and intervertebral neural foramina. C3-4: Normal endplates. Normal disc height, signal and morphology. Normal central canal and intervertebral neural foramina. C4-5: Modic type I degenerative vertebral marrow edema underneath the vertebral endplates. Minimal disc space height narrowing. Anterior marginal spurs. Prominent spur in the right uncovertebral joint causing moderate stenosis of the right intervertebral neural foramen. Normal left intervertebral neural foramen. C5-6: Normal endplates. Moderate disc space height narrowing. Normal central canal. Mild asymmetric stenosis of the intervertebral neural foramina due to osteophytes arising from the uncovertebral joints. C6-7: Modic type I degenerative vertebral marrow edema underneath the vertebral endplates. Normal central canal and intervertebral neural foramina. C7-T1: Normal endplates. Normal disc height, signal and morphology. Normal central canal and intervertebral neural foramina. T1-T2, T2-T3, T3-T4 and T4-T5: (Sagittal only). Normal endplates. Normal disc height, signal and morphology. Normal central canal and intervertebral neural foramina. Normal cervical cord. Normal included upper thoracic spinal cord. Abnormal elongated T2 FLAIR hyperintensity in the upper alessio. Normal visualized soft tissue structures. MRI/Spine Cervical (Routine) IMPRESSION: 1. No MRI evidence of cervical extruded disc fragment. 2. Mild C4-C5 intervertebral osteochondritis (Modic type I) and moderate stenosis of the right C4-C5 intervertebral neural foramen due to prominent bone spur. 3. Moderate C6-C7 intervertebral osteochondritis (Modic type I). 4. Normal cervical spinal cord. 5. Abnormal T2 hyperintensity of the upper pontine tegmentum corresponds to the prominent subacute ischemic infarct of the right paracentral pontine tegmentum on MRI brain of 11/27/2022. Electronically Signed: Ronnie Walker MD at 11:26 EDT ,
[2022-11-27] MEDS: Famotidine 20 MG Tablet PO ×2 (11:10→21:43)
[2022-11-27] MEDS: Aspirin 81 MG TAB.CHEW PO (11:10)
[2022-11-27] MEDS: Enoxaparin 40 MG/0.4 ML Syringe SC (11:10)
[2022-11-27] MEDS: Acetaminophen 325 MG Tablet 650 MG PO (11:20)
[2022-11-27] MEDS: 0.9% Saline Lock 10 ML Syringe IV (11:33)
--- NOTE | 2022-11-27 11:57 | CASEMGMT ---
SW completed a PHQ9 with patient as he had s Stroke. Patient scored a 10 which indicates moderate depression. Patient was tearful during screen. Patient said he feels like he cannot control his emotions and he just starts crying. SW assured him that is okay and to allow himself to cry. Patient also said his mom from a stroke so he is also thinking about that. SW listened and provided emotional support. Patient's was also present (patient did tell SW he was okay with his being present during screen). Patient's seemed very supportive of patient. SW provided patient with a list of counseling resources and information on [facility] stroke support group. SW also met with patient as he is self pay. Patient said he will be 63 in January so he will get Medicare then. Patient said he applied for a supplemental plan as well. SW did provide patient with information on prescription assistance programs, [facility], and [facility] patient assistance program. SW also spoke with patient about d/c meds and [facility] being able to assist once a year. BOSSMAN told patient SW will watch for d/c meds. Patient and his thanked BOSSMAN. Ivett Wynn [employer]
[2022-11-27 17:31] LABS: Hemoglobin A1c 5.4 % (3.8-5.6)
[2022-11-27] MEDS: Atorvastatin Calcium 80 MG Tablet PO (21:43)
[2022-11-28 00:45] VITALS: BP 148/75; PULSE 64; RESP 16; TEMP 36.7; O2SAT 97
[2022-11-28 04:45] VITALS: BP 153/80; PULSE 60; RESP 16; TEMP 36.5; O2SAT 97
--- NOTE | 2022-11-28 08:12 | PCM.PN.HOSP ---
Reason for Visit Reason for Visit: Diagnoses Transient cerebral ischemic attack, unspecified (11/27/22) Subjective Subjective Patient admitted with left-sided paresthesias and subjective weakness MRI did show acute CVA currently on a monitored bed where patient is being managed Objective Data Objective Data Vital Signs: Vital Signs Temp Pulse Resp BP Pulse Ox O2 Del Method 97.7 F L 60 16 153/80 H 97 Room Air 11/28/22 04:45 11/28/22 04:45 11/28/22 04:45 11/28/22 04:45 11/28/22 04:45 11/28/22 08:00 Oxygen Delivery Method Room Air Weight: 69 kg Body Mass Index (BMI) 22.5 Intake & Output: Intake and Output for Last 24 Hours 11/26/22 11/27/22 11/28/22 23:59 23:59 23:59 Intake Total 300 / 540 3603.75 / 3603.75 240 / 240 Balance 300 / 540 3603.75 / 3603.75 240 / 240 Lab / Micro Data 11/27/22 05:52 11/27/22 05:52 Labs: Laboratory Results - last 24 hr 11/27/22 05:52: Hemoglobin A1c 5.4 Radiography Diagnostic Testing: Radiology Impression Chest X-Ray 11/26/22 12:55 IMPRESSION: No acute abnormality seen. Electronically Signed: Siva De Luna MD at 13:55 EDT , Echocardiogram 11/26/22 16:05 Interpretation Summary The estimated ejection fraction is 60 %. Trivial tricuspid valve insufficiency. Trivial aortic valve insufficiency. Bubble contrast study negative for right to left interatrial shunt. Ordering Physician: Malachi Martinez Performed By: Hortensia Ayala and Student Brain MRI 11/27/22 10:55 IMPRESSION: Prominent subacute ischemic infarct in the right upper alessio extending from the belly to the right paracentral pontine tegmentum extending from the belly of the alessio and smaller subacute ischemic infarcts in the peripheral aspect of the right upper pontine tegmentum. They are most likely from right basilar artery public information officer thromboembolic occlusion. Electronically Signed: Ronnie Walker MD at 11:20 EDT , ADDENDUM: 11/27/22 1137 IMPRESSION: Prominent subacute ischemic infarct in the right upper alessio extending from the belly to the right paracentral pontine tegmentum extending from the belly of the alessio and smaller subacute ischemic infarcts in the peripheral aspect of the right upper pontine tegmentum. They are most likely from right basilar artery public information officer thromboembolic occlusion. N.B. : The above Results were Read Back by Ronnie Walker MD to Sophy Reza RN, and understanding confirmed on 11/27/2022 11:30:47 (ET). Electronically Signed: Ronnie Walker MD at 11:20 EDT , Cervical Spine MRI 11/27/22 10:55 IMPRESSION: 1. No MRI evidence of cervical extruded disc fragment. 2. Mild C4-C5 intervertebral osteochondritis (Modic type I) and moderate stenosis of the right C4-C5 intervertebral neural foramen due to prominent bone spur. 3. Moderate C6-C7 intervertebral osteochondritis (Modic type I). 4. Normal cervical spinal cord. 5. Abnormal T2 hyperintensity of the upper pontine tegmentum corresponds to the prominent subacute ischemic infarct of the right paracentral pontine tegmentum on MRI brain of 11/27/2022. Electronically Signed: Ronnie Walker MD at 11:26 EDT , Physical Exam Narrative GENERAL: cooperative HEENT: Atraumatic; normocephalic EYES; Anicteric, Normal Conjunctiva NECK; supple, normal thyroid, RESPIRATORY: Diminished to auscultation CARDIOVASCULAR: Regular S1 S2, GI: soft, normoactive bowel sounds, : No Renal angle tenderness; EXTREMITIES: No edema, no clubbing, MUSCULOSKELETAL: no muscle wasting NEURO: Awake; no lateralizing signs. SKIN: No Rash PSYCH; Flat affect Assessment & Plan Assessment/Plan (1) TIA (transient ischemic attack): PLAN: Plan Patient is a 62-year-old gentleman presenting with paresthesias in multiple difficulty involving the left upper extremity 1. Acute ischemic CVA ? Patient presented with multiple complaints including left upper arm paresthesias, gait disturbance, intermittent speech difficulty which has since resolved. Admitted to monitored bed ordered neurochecks every [address] angio of the head and neck in the emergency department which came back negative subsequently placed on a monitored bed. Ordered MRI of the head as well as cervical spine without contrast. Patient started on antiplatelet therapy with aspirin and statin therapy with atorvastatin ? 11/27/2022;MRI of the brain without contrast obtained did show Prominent subacute ischemic infarct in the right upper alessio extending from the belly to the right paracentral pontine tegmentum extending from the belly of the alessio an smaller subacute ischemic infarcts in the peripheral aspect of the right upper pontine tegmentum. They are most likely from right basilar artery public information officer thromboembolic occlusion - MRI of the cervical spine did demonstrate No MRI evidence of cervical extruded disc fragment. Mild C4-C5 intervertebral osteochondritis (Modic type I) and moderate stenosis of the right C4-C5 intervertebral neural foramen due to prominent bone spur. Moderate C6-C7 intervertebral osteochondritis (Modic type I). Normal cervical spinal cord. -Consult subsequently placed to telemetry neurology 2. New onset hypertension ? Patient blood pressure control not optimal however given his acute ischemic event plan is to gradually lower his blood pressure. 3. Dyslipidemia ? With total cholesterol of 201 and LDL of 142. Patient started on high-dose statin with LDL goal of less than 70 4. GERD ? Patient is on [id number] PPI prescribed Protonix in the hospital 5.. Tobacco dependence - Counseled on cessation, offered nicotine patch for tobacco cravings 6. DVT prophylaxis - On enoxaparin Time spent in the patient's overall evaluation,decision-making process, review of diagnostic data, adjustment of management, discussion with other providers, nursing nursing and ancillary staff involved in patient's care documentation, 35 minutes Charges/Coding Visit Charges Inpatient E&M: 03217 Subs Hosp L2
[2022-11-28] MEDS: Enoxaparin 40 MG/0.4 ML Syringe SC (08:29)
[2022-11-28] MEDS: Aspirin 81 MG TAB.CHEW PO (08:30)
[2022-11-28] MEDS: Famotidine 20 MG Tablet PO (08:30)
[2022-11-28 08:38] VITALS: BP 152/76; PULSE 52; RESP 18; TEMP 36.6; O2SAT 98
--- NOTE | 2022-11-28 10:45 | PCM.DC.SUM ---
Providers Date of Admission: 11/27/22 Date of Discharge: 11/28/22 Primary Care Physician: Constance Primary Care Phys Reason For Visit: stroke Diagnosis Discharge Diagnosis (1) TIA (transient ischemic attack): Status: Acute Code(s): G45.9 - Transient cerebral ischemic attack, unspecified Plan Patient is a 62-year-old gentleman presenting with paresthesias in multiple difficulty involving the left upper extremity 1. Acute ischemic CVA ? Patient presented with multiple complaints including left upper arm paresthesias, gait disturbance, intermittent speech difficulty which has since resolved. Admitted to monitored bed ordered neurochecks every [address] angio of the head and neck in the emergency department which came back negative subsequently placed on a monitored bed. Ordered MRI of the head as well as cervical spine without contrast. Patient started on antiplatelet therapy with aspirin and statin therapy with atorvastatin ? 11/27/2022;MRI of the brain without contrast obtained did show Prominent subacute ischemic infarct in the right upper alessio extending from the belly to the right paracentral pontine tegmentum extending from the belly of the alessio an smaller subacute ischemic infarcts in the peripheral aspect of the right upper pontine tegmentum. 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 Mild C4-C5 intervertebral osteochondritis (Modic type I) and moderate stenosis of the right C4-C5 intervertebral neural foramen due to prominent bone spur. Moderate C6-C7 intervertebral osteochondritis (Modic type I). Normal cervical spinal cord. -Consult subsequently placed to telemetry neurology 2. New onset hypertension ? Patient blood pressure control not optimal however given his acute ischemic event plan is to gradually lower his blood pressure. 3. Dyslipidemia ? With total cholesterol of 201 and LDL of 142. Patient started on high-dose statin with LDL goal of less than 70 4. GERD ? Patient is on [id number] PPI prescribed Protonix in the hospital 5.. Tobacco dependence - Counseled on cessation, offered nicotine patch for tobacco cravings 6. DVT prophylaxis - On enoxaparin Time spent in the patient's overall evaluation,decision-making process, review of diagnostic data, adjustment of management, discussion with other providers, nursing nursing and ancillary staff involved in patient's care documentation, 35 minutes Medications at Discharge Home Medications esomeprazole magnesium 20 mg capsule,delayed release 20 mg PO DAILY 11/26/22 olopatadine 0.2 % eye drops (Eye Allergy Itch Relief) 1 drp EACH EYE DAILY PRN ALLERGIES 11/26/22 aspirin 81 mg chewable tablet 81 mg PO BREAKFAST 90 days #90 tabs 11/28/22 atorvastatin 80 mg tablet 80 mg PO QHS #90 tabs 11/28/22 clopidogrel 75 mg tablet (Plavix) 75 mg PO DAILY #21 tabs 11/28/22 losartan 50 mg-hydrochlorothiazide 12.5 mg tablet 1 tab PO DAILY #90 tabs 11/28/22 Hospital Course Summary of Care Provided Minutes Spent on Discharge: 35 Physical Exam Narrative GENERAL: cooperative HEENT: Atraumatic; normocephalic EYES; Anicteric, Normal Conjunctiva NECK; supple, normal thyroid, RESPIRATORY: Diminished to auscultation CARDIOVASCULAR: Regular S1 S2, GI: soft, normoactive bowel sounds, : No Renal angle tenderness; EXTREMITIES: No edema, no clubbing, MUSCULOSKELETAL: no muscle wasting NEURO: Awake; no lateralizing signs. SKIN: No Rash PSYCH; Flat affect Weight / BMI Weight Weight: 69 kg Body Mass Index (BMI) 22.5 ABG / Lab / Microbiology Data 11/27/22 05:52 11/27/22 05:52 Laboratory: Laboratory Results - last 24 hr 11/27/22 05:52: Hemoglobin A1c 5.4 Radiography Diagnostic Testing: Radiology Impression Chest X-Ray 11/26/22 12:55 IMPRESSION: No acute abnormality seen. Electronically Signed: Siva De Luna MD at 13:55 EDT , Echocardiogram 11/26/22 16:05 Interpretation Summary The estimated ejection fraction is 60 %. Trivial tricuspid valve insufficiency. Trivial aortic valve insufficiency. Bubble contrast study negative for right to left interatrial shunt. Ordering Physician: Malachi Martinez Performed By: Hortensia Ayala and Student Brain MRI 11/27/22 10:55 IMPRESSION: Prominent subacute ischemic infarct in the right upper alessio extending from the belly to the right paracentral pontine tegmentum extending from the belly of the alessio and smaller subacute ischemic infarcts in the peripheral aspect of the right upper pontine tegmentum. 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 Electronically Signed: Ronnie Walker MD at 11:20 EDT , ADDENDUM: 11/27/22 1137 IMPRESSION: Prominent subacute ischemic infarct in the right upper alessio extending from the belly to the right paracentral pontine tegmentum extending from the belly of the alessio and smaller subacute ischemic infarcts in the peripheral aspect of the right upper pontine tegmentum. 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 N.B. : The above Results were Read Back by Ronnie Walker MD to Sophy Reza RN, and understanding confirmed on 11/27/2022 11:30:47 (ET). Electronically Signed: Ronnie Walker MD at 11:20 EDT , Cervical Spine MRI 11/27/22 10:55 IMPRESSION: 1. No MRI evidence of cervical extruded disc fragment. 2. Mild C4-C5 intervertebral osteochondritis (Modic type I) and moderate stenosis of the right C4-C5 intervertebral neural foramen due to prominent bone spur. 3. Moderate C6-C7 intervertebral osteochondritis (Modic type I). 4. Normal cervical spinal cord. 5. Abnormal T2 hyperintensity of the upper pontine tegmentum corresponds to the prominent subacute ischemic infarct of the right paracentral pontine tegmentum on MRI brain of 11/27/2022. Electronically Signed: Ronnie Walker MD at 11:26 EDT , D/C Instructions Discharge Diet: No restrictions Discharge Activity: Return to Normal Activity Call your doctor if you observe: Fever of 101 or Higher, Shortness of breath, Fainting spells and Chest pain Meaningful Use Info Meaningful Use Diagnoses (Choose all that apply): Ischemic CVA CVA Therapy Assessed for PT,OT and/or ST?: Yes Ischemic Stroke Antithrombotic order at d/c?: Yes Dx of Atrial fib/flutter?: No Statins at discharge?: Yes Primary Dx Acute Ischemic CVA?: Yes IV thrombolytic ordered during stay?: No Reason IV thrombolytic not ordered: Medical Contraindication Discharge Plan Admission Admit Date/Time: 11/27/22 15:30 Attending Provider: Malachi Martinez Primary Care Provider: Care Physician,No Primary Discharge Orders/Prescriptions Prescriptions: New atorvastatin 80 mg Tablet 80 mg PO QHS Qty: 90 0RF aspirin 81 mg Tablet,Chewable 81 mg PO BREAKFAST 90 Days Qty: 90 0RF clopidogrel [Plavix] 75 mg tablet 75 mg PO DAILY Qty: 21 0RF losartan-hydrochlorothiazide 50-12.5 mg tablet 1 tab PO DAILY Qty: 90 0RF Continued esomeprazole magnesium 20 mg capsule,delayed release(DR/EC) 20 mg PO DAILY olopatadine [Eye Allergy Itch Relief] 0.2 % drops 1 drp EACH EYE DAILY PRN (Reason: ALLERGIES) Rx Instructions: PT GETS OTC EYE ALLERGY DROPS FROM [facility] TO USE NEEDED Discontinued naproxen 500 MG tablet 500 mg PO BID PRN (Reason: pain) Referrals / Follow Up: Care Physician,No Primary [Primary Care Provider] - Within 2 Weeks Disposition Disposition (needs filled in before D/C Order can be placed): Home, Self Care Charges/Coding Visit Charges Inpatient E&M: 79198 Disch Hosp >30min
--- NOTE | 2022-11-28 11:07 | CASEMGMT ---
SW utilized [facility] prescription assistance program for patient. Patient was given resources earlier this stay on prescription assistance programs, F financial assistance, and Monica Waddell. Ivett RUELAS
--- NOTE | 2022-11-28 11:40 | CASEMGMT ---
RN ZULMA Face to Face with patient for initial transition planning/care coordination assessment. RN CM introduced self and role at [facility]. Patient lying in bed, alert and oriented, at bedside. Patient willing to participate in assessment and is able to answer all questions appropriately. Care providers, pharmacy, and demographics verified. Patient wishes to discharge home, script for outpatient provided to patient. Patient states he has no further needs or concerns at this time. CM to follow for discharge planning needs that may arise. PCP: No PCP, list provided to patient Specialists: none Preferred Pharmacy: [facility] retail at discharge[facility] Insurance: none Prescription Benefit: none Living Will/HPOA: none LNOK: Living Arrangements: Patient lives with in a single story home with 3 steps to enter. Patient states he is independent at home. Transportation: self, DME/HHC: Patient has raised toilet and BP cuff. No previous HHC or SNF. Disposition Plan: Patient to discharge home with family support and follow-up plans in place. Script for outpatient therapy and [facility] information provided to patient. Elizabeth MYERS, RN, CM
--- NOTE | 2022-11-28 11:54 | PHA.DC.MC.R ---
Pharmacy [facility] has performed discharge medication reconciliation and counseling for this patient. The patient was counseled on the following discharge medications and changes in medications for homegoing were reviewed. 1. Losartan-HCTZ. 2. Lipitor 3. Plavix 4. Aspirin The Reason for Use, instructions for use, and potential side effects were reviewed for all new medications. The patient's questions regarding all of their medications were answered. The patient was able to verbally demonstrate an understanding of their discharge medications. The patient's discharge medication list was reviewed for discrepancies and discrepancies were resolved. Patient counselled by Nolberto Bentley PharmD Medications at Discharge Home Medications esomeprazole magnesium 20 mg capsule,delayed release 20 mg PO DAILY 11/26/22 olopatadine 0.2 % eye drops (Eye Allergy Itch Relief) 1 drp EACH EYE DAILY PRN ALLERGIES 11/26/22 aspirin 81 mg chewable tablet 81 mg PO BREAKFAST 90 days #90 tabs 11/28/22 atorvastatin 80 mg tablet 80 mg PO QHS #90 tabs 11/28/22 clopidogrel 75 mg tablet (Plavix) 75 mg PO DAILY #21 tabs 11/28/22 losartan 50 mg-hydrochlorothiazide 12.5 mg tablet 1 tab PO DAILY #90 tabs 11/28/22
[2022-11-28 11:55] VITALS: BMI 22.5
[2022-11-28 12:00] VITALS: BMI 22.5
[2022-11-28 12:06] VITALS: BP 146/78; PULSE 51; RESP 17; TEMP 36.6; O2SAT 98
== END 2022-11-28 13:38 | disposition home or self-care (01) | DRG 65 ==
LOC: ED 13:14 → PCU 15:44
PROVIDERS: Admitting Provider Internal Medicine; Emergency Provider Emergency Medicine; Visit Provider Internal Medicine
DX: I63.12 Cerebral infarction due to embolism of basilar artery (principal); G81.94 Hemiplegia, unspecified affecting left nondominant side; E78.5 Hyperlipidemia, unspecified; K21.9 Gastro-esophageal reflux disease without esophagitis; F17.210 Nicotine dependence, cigarettes, uncomplicated; R26.2 Difficulty in walking, not elsewhere classified; I10 Essential (primary) hypertension; R29.700 NIHSS score 0; Z91.199 Patient's noncompliance with other medical treatment and regimen due to unspecified reason; Z82.3 Family history of stroke
CPT/HCPCS: 36415; 70496; 70498; 70551; 71045; 72141; 80048; 80053; 80061; 83036; 83735; 84100; 84443; 84484; 85025; 85610; 85730; 92610; 93005; 93306; 94762; 97110; 97112; 97162; 97166; 97530; 97802; 99284; J7030; Q9967; A4216

== ENCOUNTER 2023-02-26 10:06 | Outpatient (CLI) | payer MEDICARE, SELFPAY ==
[2023-02-26 12:26] LABS: Absolute Lymphocyte Count 1.48 X10^3/uL (0.83-4.51); Absolute Neutrophil Count 4.1 X10^3/uL (2.0-7.7); Basophil# 0.06 X10^3/uL; Basophil% 0.9 % (0-1); Eosinophil# 0.32 X10^3/uL; Eosinophils% 4.9 % (0-5); Hematocrit 47.2 % (40-54); Hemoglobin 15.4 g/dL (13.0-16.5); Lymphocyte # 1.48 X10^3/ul (0.83-4.51); Lymphocyte % 22.8 % (19-41); Mean Corp Hgb Conc 32.6 g/dL (32-36); Mean Corpuscular Hgb 32.6 pg (27.0-32.0); Mean Platelet Vol. 9.8 fl (6.2-12.0); Monocyte# 0.51 X10^3/uL; Monocyte% 7.9 % (0-10); NRBC Flagged by Analyzer 0 % (0-5); Neutrophil # 4.09 X10^3/uL (2.7-7.7); Platelet Count 338 K/mm3 (150-450); RBC Distribution Width CV 13.7 % (11.6-14.6); RBC Distribution Width SD 50.6 fl (35.1-43.9); Red Blood Count 4.72 M/mm3 (4.6-6.2); White Blood Count 6.5 K/mm3 (4.4-11.0)
[2023-02-26 12:39] LABS: Vitamin B12 799 pg/mL (211-911); Vitamin D,25 Hydroxy 31.7 ng/mL
[2023-02-26 13:18] LABS: AST(SGOT) 17 U/L (15-37); Alanine Aminotransfer ALT/SGPT 43 U/L (16-61); Albumin, Serum 3.5 g/dL (3.2-5.0); Alkaline Phosphatase 105 U/L (45-117); Anion Gap 6 (5-15); BUN 16 mg/dL (7-18); BUN/Creat Ratio 19.5 RATIO (10-20); Calcium,Total 8.5 mg/dL (8.5-10.1); Chloride 105 mmol/L (98-107); Creatinine, Serum 0.82 mg/dL (0.70-1.30); EST Glomerular Filtration Rate 100 mL/min (>60); Est Glom Filt Rate - Afr Amer 121 mL/min (>60); Ferritin 159 ng/mL (26-388); Globulin 3.6 g/dL (2.2-4.2); Glucose 97 mg/dL (74-106); Magnesium 2.5 mg/dL (1.6-2.6); Potassium 3.3 mmol/L (3.5-5.1); Protein, Total 7.1 g/dL (6.4-8.2); Sodium Level 139 mmol/L (136-145); Thyroid Stim Hormone (TSH) 1.99 uIU/mL (0.358-3.74)
[2023-02-26 13:34] LABS: Hemoglobin A1c 5.4 % (3.8-5.6)
== END 2023-02-26 23:59 | disposition home or self-care (01) ==
PROVIDERS: PCP Family Medicine; Visit Provider Family Medicine
DX: R53.83 Other fatigue (principal)
CPT/HCPCS: 36415; 80053; 82306; 82607; 82728; 82746; 83036; 83735; 84443; 85025

== ENCOUNTER → 2024-02-25 | Outpatient (CLI) | payer MEDICARE, SELFPAY ==
[2024-02-25 18:07] LABS: Absolute Lymphocyte Count 1.85 X10^3/uL (0.83-4.51); Absolute Neutrophil Count 4.3 X10^3/uL (2.0-7.7); Basophil# 0.05 X10^3/uL; Basophil% 0.7 % (0-1); Eosinophil# 0.34 X10^3/uL; Eosinophils% 4.7 % (0-5); Hematocrit 46.4 % (40-54); Hemoglobin 15.3 g/dL (13.0-16.5); Lymphocyte # 1.85 X10^3/ul (0.83-4.51); Lymphocyte % 25.7 % (19-41); Mean Corpuscular Hgb 32.3 pg (27.0-32.0); Mean Corpuscular Volume 98.1 fL (80-94); Mean Platelet Vol. 9.8 fl (6.2-12.0); Monocyte# 0.65 X10^3/uL; NRBC Flagged by Analyzer 0 % (0-5); Neutrophil % 59.6 % (47-70); Platelet Count 307 K/mm3 (150-450); RBC Distribution Width CV 13.4 % (11.6-14.6); RBC Distribution Width SD 49.1 fl (35.1-43.9); Red Blood Count 4.73 M/mm3 (4.6-6.2); White Blood Count 7.2 K/mm3 (4.4-11.0)
[2024-02-25 18:20] LABS: ALB/GLOB Ratio 1.1 RATIO (0.9-2.4); AST(SGOT) 15 U/L (15-37); Alanine Aminotransfer ALT/SGPT 21 U/L (16-61); Albumin, Serum 3.6 g/dL (3.2-5.0); Alkaline Phosphatase 79 U/L (45-117); Anion Gap 5 (5-15); BUN 17 mg/dL (7-18); BUN/Creat Ratio 22.5 RATIO (10-20); Calcium,Total 8.9 mg/dL (8.5-10.1); Chloride 103 mmol/L (98-107); Cholesterol 138 mg/dL (200); Creatinine, Serum 0.76 mg/dL (0.70-1.30); EST Glomerular Filtration Rate 110 mL/min (>60); Est Glom Filt Rate - Afr Amer 133 mL/min (>60); Globulin 3.3 g/dL (2.2-4.2); Glucose 84 mg/dL (74-106); High Density Lipoprotein 43 mg/dL; Potassium 3.4 mmol/L (3.5-5.1); Protein, Total 6.9 g/dL (6.4-8.2); Sodium Level 138 mmol/L (136-145); Triglycerides 127 mg/dL; Very Low Density Lipoprotein 25 mg/dL (5-40); Vitamin D,25 Hydroxy 35.7 ng/mL
== END | disposition home or self-care (01) ==
PROVIDERS: PCP Family Medicine; Referring Provider Family Medicine; Visit Provider Family Medicine
DX: I10 Essential (primary) hypertension (principal); R79.89 Other specified abnormal findings of blood chemistry
CPT/HCPCS: 36415; 80053; 80061; 82306; 85025

== ENCOUNTER → 2024-03-14 | Outpatient (CLI) | payer MEDICARE, SELFPAY ==
--- OUTSIDE RECORDS SUMMARY | 2024-03-14 10:17 | XMS RPT_ITS | CCD ---
Author Organization [facility] Care Team Providers Care Filling Machine Operator Name Role Phone MEHRAN NEGRON, DR UMAÑA Attending [facility] Medications Current Medications Medication Drug Class(es) Dates Sig (Normalized) Sig (Original) atorvastatin 80 mg oral tablet (1 source) HMG-CoA Reductase Inhibitor Start: 06-01-2023 atorvastatin 80 mg oral tablet 0 Refill(s) Start Date: 06/01/23 Status: Ordered clopidogrel 75 mg oral tablet (1 source) P2Y12 Platelet Inhibitor Start: 06-01-2023 clopidogrel 75 mg oral tablet 0 Refill(s) Start Date: 06/01/23 Status: Ordered esomeprazole 40 mg delayed release oral capsule (1 source) Proton Pump Inhibitor Start: 06-01-2023 esomeprazole 40 mg oral delayed release capsule Dose : 40 mg = 1 cap(s), Oral, BID, # 30 cap(s), 0 Refill(s) Start Date: 06/01/23 Status: Ordered hydroCHLOROthiazide 12.5 mg / losartan potassium 50 mg oral tablet (1 source) Thiazide Diuretic, Angiotensin 2 Receptor Oswaldo Start: 06-01-2023 hydrochlorothiazi de-losartan 12.5-50 mg oral tablet 0 Refill(s) Start Date: 06/01/23 Status: Ordered Vitamin D2 50 mcg (2000 intl units) oral capsule (1 source) Start: 06-01-2023 Vitamin D2 50 mcg (2000 intl units) oral capsule Dose : 50 mcg = 1 cap(s), Oral, qDay, with food, # 60 cap(s), 0 Refill(s) Start Date: 06/01/23 Status: Ordered Problems Problem Classification Problem Date Documented Date Episodic/Chronic Esophageal disorders (1 source) Gastroesophageal reflux disease without esophagitis; Translations: [Gastro-esophageal reflux disease without esophagitis] Onset: 06-01-2023 Chronic Vital Signs Date Time Vital Sign Value Performing Clinician Faci lity 06-01-2023 10:34-0500 Diastolic Blood Pressure Non-Invasive 74 mm[Hg] DR CHASIDY LAURENT MD [facility] 06-01-2023 10:34-0500 Heart rate 69 /min DR CHASIDY LAURNET MD [facility] 06-01-2023 10:34-0500 Respiratory rate 17 /min DR CHASIDY LAURENT MD [facility] 06-01-2023 10:34-0500 Systolic Blood Pressure Non-Invasive 135 mm[Hg] DR CHASIDY LAURENT MD [facility] 06-01-2023 10:23-0500 Heart rate 68 /min DR CHASIDY LAURENT MD [facility] 06-01-2023 10:23-0500 Respiratory rate 18 /min DR CHASIDY LAURENT MD [facility] 06-01-2023 10:16-0500 Diastolic Blood Pressure Non-Invasive 72 mm[Hg] DR CHASIDY LAURENT MD [facility] 06-01-2023 10:16-0500 Heart rate 74 /min DR CHASIDY LAURENT MD [facility] 06-01-2023 10:16-0500 Respiratory rate 17 /min DR CHASIDY LAURENT MD [facility] 06-01-2023 10:16-0500 Systolic Blood Pressure Non-Invasive 120 mm[Hg] DR CHASIDY LAURENT MD [facility] 06-01-2023 10:07-0500 Body temperature 96.62 [degF] DR CHASIDY LAURENT MD [facility] 06-01-2023 10:07-0500 Diastolic Blood Pressure Non-Invasive 77 mm[Hg] DR CHASIDY LAURENT MD [facility] 06-01-2023 10:07-0500 Systolic Blood Pressure Non-Invasive 116 mm[Hg] DR CHASIDY LAURENT MD [facility] 06-01-2023 10:05-0500 Respiratory Rate - Anes 5 br/min DR CHASIDY LAURENT MD [facility] 06-01-2023 10:00-0500 Respiratory Rate - Anes 23 br/min DR CHASIDY LAURENT MD [facility] 06-01-2023 08:34-0500 Body height 172.[address] CHASIDY LAURENT MD [facility] 06-01-2023 08:34-0500 Body temperature 98.24 [degF] DR CHASIDY LAURENT MD [facility] 06-01-2023 08:34-0500 Body weight [address] CHASIDY LAURENT MD [facility] 06-01-2023 08:34-0500 Heart rate 72 /min DR CHASIDY LAURENT MD [facility] Encounters Encounter Date Encounter Type Care Provider Facility Start: 06-01-2023 End: 06-01-[address] CHASIDY LAURENT MD Facility:[facility] Start: 06-01-2023 End: 06-01-[address] CHASIDY LAURENT MD [facility] Procedures Date Procedure Procedure Detail Performing Clinician Colonoscopy DR CHASIDY MORTENSEN MD Structure of right a nkle (body structure) DR CHASIDY LAURENT MD Comment on above: fracture right ankle with metal fixation. Payers Date Payer Category Payer Unknown [id number] 1960 Unknown [id number] Social History Date Type Detail Facility Start: 06-01-2023 Tobacco smoking status Heavy t obacco smoker (finding) [facility] Sex Assigned At Male [facility] Functional Status Date Assessment Result Facility 06-01-2023 Functional Status Repositions self [facility] 06-01-2023 Functional Status [facility]ained [facility] Mental Status Date Assessment Result Facility 06-01-2023 Mental Status Orientation Oriented x 4 [facility] 06-01-2023 [facility] Discharge instructions 06-01-2023 Note Date & Type Note Facility 06-01-2023 Hospital Discharg e instructions Patient Education 06/01/2023 10:26:46 Steps to Quit Smoking, [id number] Steps to Quit Smoking Smoking tobacco is the leading cause of preventable . It can affect almost every organ in the body. Smoking puts you and people around you at risk for many serious, long-lasting (chronic) diseases. Quitting smoking can be hard, but it is one of the best things that you can do for your health. It is never too late to quit. How do I get ready to quit? When you decide to quit smoking, make a plan to help you succeed. Before you quit: Pick a date to quit. Set a date within the next 2 weeks to give you time to prepare. Write down the reasons why you are quitting. Keep this list in places where you will see it often. Tell your family, friends, and co-workers that you are quitting. Their support is important. Talk with your doctor about the choices that may help you quit. Find out if your health insurance will pay for these treatments. Know the people, places, things, and activities that make you want to smoke (triggers). Avoid them. What first steps can I take to quit smoking? Throw away all cigarettes at home, at work, and in your car. Throw away the things that you use when you smoke, such as ashtrays and lighters. Clean your car. Make sure to empty the ashtray. Clean your home, including curtains and carpets. What can I do to help me quit smoking? Talk with your doctor about taking medicines and seeing a counselor at the same time. You are more likely to succeed when you do both. If you are or , talk with your doctor about counseling or other ways to quit smoking. Do not take medicine to help you quit smoking unless your doctor tells you to do so. To quit smoking: Quit right away Quit smoking totally, instead of slowly cutting back on how much you smoke over a period of time. Go to counseling. You are more likely to quit if you go to counseling sessions regularly. Take medicine You may take medicines to help you quit. Some medicines need a prescription, and some you can buy [id number]-[id number]. Some medicines may contain a drug called nicotine to replace the nicotine in cigarettes. Medicines may: Help you to stop having the desire to smoke (cravings). Help to stop the problems that come when you stop smoking (withdrawal symptoms). Your doctor may ask you to use: Nicotine patches, gum, or lozenges. Nicotine inhalers or sprays. Non-nicotine medicine that is taken by mouth. Find resources Find resources and other ways to help you quit smoking and remain smoke-free after you quit. These resources are most helpful when you use them often. They include: Online chats with a counselor. Phone quitlines. Printed self-help materials. Support groups or group counseling. Text messaging programs. Mobile phone apps. Use apps on your mobile phone or tablet that can help you stick to your quit plan. There are many free apps for mobile phones and tablets as well as websites. Examples include Quit Guide from the CDC and smokefree.gov What things can I do to make it easier to quit? Talk to your family and friends. Ask them to support and encourage you. Call a phone quitline (4-314-NSYS-NOW), reach out to support groups, or work with a counselor. Ask people who smoke to not smoke around you. Avoid places that make you want to smoke, such as: ?Bars. ?Parties. ?Smoke-break areas at work. Spend time with people who do not smoke. Lower the stress in your life. Stress can make you want to smoke. Try these things to help your stress: ?Getting regular exercise. ?Doing deep-breathing exercises. ?Doing yoga. ?Meditating. ?Doing a body scan. To do this, close your eyes, focus on one area of your body at a time from head to toe. Notice which parts of your body are tense. Try to relax the muscles in those areas. How will I feel when I quit smoking? Day 1 to 3 weeks Within the first 24 hours, you may start to have some problems that come from quitting tobacco. These problems are very bad 2 3 days after you quit, but they do not often last for more than 2 3 weeks. You may get these symptoms: Mood swings. Feeling restless, nervous, angry, or annoyed. Trouble concentrating. Dizziness. Strong desire for high-sugar foods and nicotine. Weight gain. Trouble pooping (constipation). Feeling like you may vomit (nausea). Coughing or a sore throat. Changes in how the medicines that you take for other issues work in your body. Depression. Trouble sleeping (insomnia). Week 3 and afterward After the first 2 3 weeks of quitting, you may start to notice more positive results, such as: Better sense of smell and taste. Less coughing and sore throat. Slower heart rate. Lower blood pressure. Clearer skin. Better breathing. Fewer sick days. Quitting smoking can be hard. Do not give up if you fail the first time. Some people need to try a few times before they succeed. Do your best to stick to your quit plan, and talk with your doctor if you have any questions or concerns. Summary Smoking tobacco is the leading cause of preventable . Quitting smoking can be hard, but it is one of the best things that you can do for your health. When you decide to quit smoking, make a plan to help you succeed. Quit smoking right away, not slowly over a period of time. When you start quitting, seek help from your doctor, family, or friends. This information is not intended to replace advice given to you by your health care provider. Make sure you discuss any questions you have with your health care provider. Document Released: 02/28/2010 Document Revised: 07/22/2019 Document Reviewed: 07/23/2019 [facility] Patient Education 2020 [email or web address]. 06/01/2023 10:26:43 Smoking Tobacco Information, Adult Smoking Tobacco Information, Adult Smoking tobacco can be harmful to your health. Tobacco contains a poisonous (toxic), colorless chemical called nicotine. Nicotine is addictive. It changes the brain and can make it hard to stop smoking. Tobacco also has other toxic chemicals that can hurt your body and raise your risk of many cancers. How can smoking tobacco affect me? Smoking tobacco puts you at risk for: Cancer. Smoking is most commonly associated with lung cancer, but can also lead to cancer in other parts of the body. Chronic obstructive pulmonary disease (COPD). This is a long-term lung condition that makes it hard to breathe. It also gets worse over time. High blood pressure (hypertension), heart disease, stroke, or heart attack. Lung infections, such as pneumonia. Cataracts. This is when the lenses in the eyes become clouded. Digestive problems. This may include peptic ulcers, heartburn, and gastroesophageal reflux disease (GERD). Oral health problems, such as gum disease and tooth loss. Loss of taste and smell. Smoking can affect your appearance by causing: Wrinkles. Yellow or stained teeth, fingers, and fingernails. Smoking tobacco can also affect your social life, because: It may be challenging to find places to smoke when away from home. Many workplaces, restaurants, hotels, and public places are tobacco-free. Smoking is expensive. This is due to the cost of tobacco and the long-term costs of treating health problems from smoking. Secondhand smoke may affect those around you. Secondhand smoke can cause lung cancer, breathing problems, and heart disease. Children of smokers have a higher risk for: ?Sudden syndrome (SIDS). ?Ear infections. ?Lung infections. If you currently smoke tobacco, quitting now can help you: Lead a longer and healthier life. Look, smell, breathe, and feel better over time. Save money. Protect others from the harms of secondhand smoke. What actions can I take to prevent health problems? Quit smoking Do not start smoking. Quit if you already do. Make a plan to quit smoking and commit to it. Look for programs to help you and ask your health care provider for recommendations and ideas. Set a date and write down all the reasons you want to quit. Let your friends and family know you are quitting so they can help and support you. Consider finding friends who also want to quit. It can be easier to quit with someone else, so that you can support each other. Talk with your health care provider about using nicotine replacement medicines to help you quit, such as gum, lozenges, patches, sprays, or pills. Do not replace cigarette smoking with electronic cigarettes, which are commonly called e-cigarettes. The safety of e-cigarettes is not known, and some may contain harmful chemicals. If you try to quit but return to smoking, stay positive. It is common to slip up when you first quit, so take it one day at a time. Be prepared for cravings. When you feel the urge to smoke, chew gum or suck on hard candy. Lifestyle Stay busy and take care of your body. Drink enough fluid to keep your urine pale yellow. Get plenty of exercise and eat a healthy diet. This can help prevent weight gain after quitting. Monitor your eating habits. Quitting smoking can cause you to have a larger appetite than when you smoke. Find ways to relax. Go out with friends or family to a movie or a restaurant where people do not smoke. Ask your health care provider about having regular tests (screenings) to check for cancer. This may include blood tests, imaging tests, and other tests. Find ways to manage your stress, such as meditation, yoga, or exercise. Where to find support To get support to quit smoking, consider: Asking your health care provider for more information and resources. Taking classes to learn more about quitting smoking. Looking for local organizations that offer resources about quitting smoking. Joining a support group for people who want to quit smoking in your local community. Calling the smokefree.gov counselor helpline: 9-055-Tpen-Now ( ) Where to find more information You may find more information about quitting smoking from: HelpGuide.org: www.helpguide.org Smokefree.gov: smokefree.gov [place] [employer]: www.lung.org Contact a health care provider if you: Have problems breathing. Notice that your lips, nose, or fingers turn blue. Have chest pain. Are coughing up blood. Feel faint or you pass out. Have other health changes that cause you to worry. Summary Smoking tobacco can negatively affect your health, the health of those around you, your finances, and your social life. Do not start smoking. Quit if you already do. If you need help quitting, ask your health care provider. Think about joining a support group for people who want to quit smoking in your local community. There are many effective programs that will help you to quit this behavior. This information is not intended to replace advice given to you by your health care provider. Make sure you discuss any questions you have with your health care provider. Document Released: 05/19/2017 Document Revised: 06/23/2018 Document Reviewed: 05/19/2017 [facility] Patient Education 2020 [email or web address]. 06/01/2023 10:26:39 Coping with Quitting Smoking Coping with Quitting Smoking Quitting smoking is a physical and mental challenge. You will face cravings, withdrawal symptoms, and temptation. Before quitting, work with your health care provider to make a plan that can help you cope. Preparation can help you quit and keep you from giving in. How can I cope with cravings? Cravings usually last for 5 10 minutes. If you get through it, the craving will pass. Consider taking the following actions to help you cope with cravings: Keep your mouth busy: ?Chew sugar-free gum. ?Suck on hard candies or a straw. ?Delphos your teeth. Keep your hands and body busy: ?Immediately change to a different activity when you feel a craving. ?Squeeze or play with a ball. ?Do an activity or a hobby, like making bead jewelry, practicing needlepoint, or working with wood. ?Mix up your normal routine. ?Take a short exercise break. Go for a quick walk or run up and down stairs. ?Spend time in public places where smoking is not allowed. Focus on doing something kind or helpful for someone else. Call a friend or family member to talk during a craving. Join a support group. Call a quit line, such as 4-464-YMUV-NOW. Talk with your health care provider about medicines that might help you cope with cravings and make quitting easier for you. How can I deal with withdrawal symptoms? Your body may experience negative effects as it tries to get used to not having nicotine in the system. These effects are called withdrawal symptoms. They may include: Feeling hungrier than normal. Trouble concentrating. Irritability. Trouble sleeping. Feeling depressed. Restlessness and agitation. Craving a cigarette. To manage withdrawal symptoms: Avoid places, people, and activities that trigger your cravings. Remember why you want to quit. Get plenty of sleep. Avoid coffee and other caffeinated drinks. These may worsen some of your symptoms. How can I handle social situations? Social situations can be difficult when you are quitting smoking, especially in the first few weeks. To manage this, you can: Avoid parties, bars, and other social situations where people might be smoking. Avoid alcohol. Leave right away if you have the urge to smoke. Explain to your family and friends that you are quitting smoking. Ask for understanding and support. Plan activities with friends or family where smoking is not an option. What are some ways I can cope with stress? Wanting to smoke may cause stress, and stress can make you want to smoke. Find ways to manage your stress. Relaxation techniques can help. For example: Breathe slowly and deeply, in through your nose and out through your mouth. Listen to soothing, relaxing music. Talk with a family member or friend about your stress. Light a candle. Soak in a bath or take a shower. Think about a peaceful place. What are some ways I can prevent weight gain? Be aware that many people gain weight after they quit smoking. However, not everyone does. To keep from gaining weight, have a plan in place before you quit and stick to the plan after you quit. Your plan should include: Having healthy snacks. When you have a craving, it may help to: ?Eat plain popcorn, crunchy carrots, celery, or other cut vegetables. ?Chew sugar-free gum. Changing how you eat: ?Eat small portion sizes at meals. ?Eat 4 6 small meals throughout the day instead of 1 2 large meals a day. ?Be mindful when you eat. Do not watch television or do other things that might distract you as you eat. Exercising regularly: ?Make time to exercise each day. If you do not have time for a long workout, do short bouts of exercise for 5 10 minutes several times a day. ?Do some form of strengthening exercise, like weight lifting, and some form of aerobic exercise, like running or swimming. Drinking plenty of water or other low-calorie or no-calorie drinks. Drink 6 8 glasses of water daily, or as much as instructed by your health care provider. Summary Quitting smoking is a physical and mental challenge. You will face cravings, withdrawal symptoms, and temptation to smoke again. Preparation can help you as you go through these challenges. You can cope with cravings by keeping your mouth busy (such as by chewing gum), keeping your body and hands busy, and making calls to family, friends, or a helpline for people who want to quit smoking. You can cope with withdrawal symptoms by avoiding places where people smoke, avoiding drinks with caffeine, and getting plenty of rest. Ask your health care provider about the different ways to prevent weight gain, avoid stress, and handle social situations. This information is not intended to replace advice given to you by your health care provider. Make sure you discuss any questions you have with your health care provider. Document Released: 05/01/2017 Document Revised: 04/16/2018 Document Reviewed: 05/01/2017 [facility] Patient Education 2020 [email or web address]. 06/01/2023 10:26:09 Monitored Anesthesia Care, Care After Monitored Anesthesia Care, Care After These instructions provide you with information about caring for yourself after your procedure. Your health care provider may also give you more specific instructions. Your treatment has been planned according to current medical practices, but problems sometimes occur. Call your health care provider if you have any problems or questions after your procedure. What can I expect after the procedure? After your procedure, you may: Feel sleepy for several hours. Feel clumsy and have poor balance for several hours. Feel forgetful about what happened after the procedure. Have poor judgment for several hours. Feel nauseous or vomit. Have a sore throat if you had a breathing tube during the procedure. Follow these instructions at home: For at least 24 hours after the procedure: Have a responsible adult stay with you. It is important to have someone help care for you until you are awake and alert. Rest as needed. Do not: ?Participate in activities in which you could fall or become injured. ?Drive. ?Use heavy machinery. ?Drink alcohol. ?Take sleeping pills or medicines that cause drowsiness. ?Make important decisions or sign legal documents. ?Take care of children on your own. Eating and drinking Follow the diet that is recommended by your health care provider. If you vomit, drink water, juice, or soup when you can drink without vomiting. Make sure you have little or no nausea before eating solid foods. General instructions Take divf-iov-xzqtgac and prescription medicines only as told by your health care provider. If you have sleep apnea, surgery and certain medicines can increase your risk for breathing problems. Follow instructions from your health care provider about wearing your sleep device: ?Anytime you are sleeping, including during daytime naps. ?While taking prescription pain medicines, sleeping medicines, or medicines that make you drowsy. If you smoke, do not smoke without supervision. Keep all follow-up visits as told by your health care provider. This is important. Contact a health care provider if: You keep feeling nauseous or you keep vomiting. You feel light-headed. You develop a rash. You have a fever. Get help right away if: You have trouble breathing. Summary For several hours after your procedure, you may feel sleepy and have poor judgment. Have a responsible adult stay with you for at least 24 hours or until you are awake and alert. This information is not intended to replace advice given to you by your health care provider. Make sure you discuss any questions you have with your health care provider. Document Released: 08/24/2016 Document Revised: 08/02/2018 Document Reviewed: 08/24/2016 [facility] Patient Education 2020 [email or web address]. 06/01/2023 10:26:04 Esophagogastroduodenoscopy, Care After (72668) Esophagogastroduodenoscopy, Care After Refer to this sheet in the next few weeks. These instructions provide you with information about caring for yourself after your procedure. Your health care provider may also give you more specific instructions. Your treatment has been planned according to current medical practices, but problems sometimes occur. Call your health care provider if you have any problems or questions after your procedure. What can I expect after the procedure? After the procedure, it is common to have: A sore throat. Nausea. Bloating. Dizziness. Fatigue. Follow these instructions at home: Do not eat or drink anything until the numbing medicine (local anesthetic) has worn off and your gag reflex has returned. You will know that the local anesthetic has worn off when you can swallow comfortably. Do not drive for 24 hours if you received a medicine to help you relax (sedative). If your health care provider took a tissue sample for testing during the procedure, make sure to get your test results. This is your responsibility. Ask your health care provider or the department performing the test when your results will be ready. Keep all follow-up visits as told by your health care provider. This is important. Contact a health care provider if: You cannot stop coughing. You are not urinating. You are urinating less than usual. Get help right away if: You have trouble swallowing. You cannot eat or drink. You have throat or chest pain that gets worse. You are dizzy or light-headed. You faint. You have nausea or vomiting. You have chills. You have a fever. You have severe abdominal pain. You have black, tarry, or bloody stools. This information is not intended to replace advice given to you by your health care provider. Make sure you discuss any questions you have with your health care provider. Document Released: 04/20/2013 Document Revised: 10/09/2016 Document Reviewed: 03/27/2016 [employer] Interactive Patient Education 2019 [email or web address]. Follow Up Care 05/13/2023 11:35:08 With:CHASIDY LAURENT MD Address: [facility] [place] [address] [phone] [phone] When: Unknown Comments:CALL DR LAURENT WITH ANY QUESTONS OR CONCERNS. GO TO THE EMERGENCY ROOM WITH ANY URGENT CONCERNS. [facility] Clinical Note 06-01-2023 Note Date & Type Note Facility 06-01-2023 Note Discharge Instructions Thank you for allowing [facility] to assist you with your healthcare needs. The following is important discharge information regarding your hospital visit. Your Care Team DR. LAURENT. Your Diagnosis Gastroesophageal reflux What to do next Follow Up Appointments Follow Up with CHASIDY LAURENT MD When Why: CALL DR LAURENT WITH ANY QUESTONS OR CONCERNS. GO TO THE EMERGENCY ROOM WITH ANY URGENT CONCERNS. Where[address] [phone] The Following Activity and Diet Have Been Ordered for You Discharge Activity - Ordered -- NO activity restrictions, 06/01/23 10:06:00 EST Discharge Diet - Ordered -- Follow the post-operative/post-procedure diet instructions provided by your physician's office., 06/01/23 10:06:00 EST The Following Equipment Has Been Ordered for You Discharge Home Equipment Discharge Wound Care - Ordered -- Follow the post-operative/post-procedure wound care instructions provided by your physician's office., 06/01/23 10:06:00 EST Someone Will Contact You Regarding These Home Health Referrals No home referrals have been ordered for you. No one will call you. Allergies No Known Medication Allergies Medications Please ask your primary doctor or pharmacist before taking any other medication not listed, including over the counter drugs, herbal medications, vitamins and or supplements as they may interact with your home medications. What How Much When Instructions Last Dose Unchanged atorvastatin (atorvastatin 80 mg oral tablet) Unchanged clopidogrel (clopidogrel 75 mg oral tablet) Unchanged ergocalciferol (Vitamin D2 50 mcg (2000 intl units) oral capsule) 1 cap by mouth Once a day with food Unchanged esomeprazole (esomeprazole 40 mg oral delayed release capsule) 1 cap by mouth Two (2) times a day Unchanged hydrochlorothiazide-losartan (hydrochlorothiazide-losartan 12.5-50 mg oral tablet) Please take this list to your next doctor s visit. Bring all medications you take, including over the counter medications, herbals and other supplements with you to your doctor s visit. Patients and families are reminded to discard old lists and to update any records with all medication providers or retail pharmacies. Education Materials Steps to Quit Smoking Smoking tobacco is the leading cause of preventable . It can affect almost every organ in the body. Smoking puts you and people around you at risk for many serious, long-lasting (chronic) diseases. Quitting smoking can be hard, but it is one of the best things that you can do for your health. It is never too late to quit. How do I get ready to quit? When you decide to quit smoking, make a plan to help you succeed. Before you quit: Pick a date to quit. Set a date within the next 2 weeks to give you time to prepare. Write down the reasons why you are quitting. Keep this list in places where you will see it often. Tell your family, friends, and co-workers that you are quitting. Their support is important. Talk with your doctor about the choices that may help you quit. Find out if your health insurance will pay for these treatments. Know the people, places, things, and activities that make you want to smoke (triggers). Avoid them. What first steps can I take to quit smoking? Throw away all cigarettes at home, at work, and in your car. Throw away the things that you use when you smoke, such as ashtrays and lighters. Clean your car. Make sure to empty the ashtray. Clean your home, including curtains and carpets. What can I do to help me quit smoking? Talk with your doctor about taking medicines and seeing a counselor at the same time. You are more likely to succeed when you do both. If you are or , talk with your doctor about counseling or other ways to quit smoking. Do not take medicine to help you quit smoking unless your doctor tells you to do so. To quit smoking: Quit right away Quit smoking totally, instead of slowly cutting back on how much you smoke over a period of time. Go to counseling. You are more likely to quit if you go to counseling sessions regularly. Take medicine You may take medicines to help you quit. Some medicines need a prescription, and some you can buy [id number]. Some medicines may contain a drug called nicotine to replace the nicotine in cigarettes. Medicines may: Help you to stop having the desire to smoke (cravings). Help to stop the problems that come when you stop smoking (withdrawal symptoms). Your doctor may ask you to use: Nicotine patches, gum, or lozenges. Nicotine inhalers or sprays. Non-nicotine medicine that is taken by mouth. Find resources Find resources and other ways to help you quit smoking and remain smoke-free after you quit. These resources are most helpful when you use them often. They include: Online chats with a counselor. Phone quitlines. Printed self-help materials. Support groups or group counseling. Text messaging programs. Mobile phone apps. Use apps on your mobile phone or tablet that can help you stick to your quit plan. There are many free apps for mobile phones and tablets as well as websites. Examples include Quit Guide from the CDC and smokefree.gov What things can I do to make it easier to quit? Talk to your family and friends. Ask them to support and encourage you. Call a phone quitline (2-757-OOASNOW), reach out to support groups, or work with a counselor. Ask people who smoke to not smoke around you. Avoid places that make you want to smoke, such as: ? Bars. ? Parties. ? Smoke-break areas at work. Spend time with people who do not smoke. Lower the stress in your life. Stress can make you want to smoke. Try these things to help your stress: ? Getting regular exercise. ? Doing deep-breathing exercises. ? Doing yoga. ? Meditating. ? Doing a body scan. To do this, close your eyes, focus on one area of your body at a time from head to toe. Notice which parts of your body are tense. Try to relax the muscles in those areas. How will I feel when I quit smoking? Day 1 to 3 weeks Within the first 24 hours, you may start to have some problems that come from quitting tobacco. These problems are very bad 2 3 days after you quit, but they do not often last for more than 2 3 weeks. You may get these symptoms: Mood swings. Feeling restless, nervous, angry, or annoyed. Trouble concentrating. Dizziness. Strong desire for high-sugar foods and nicotine. Weight gain. Trouble pooping (constipation). Feeling like you may vomit (nausea). Coughing or a sore throat. Changes in how the medicines that you take for other issues work in your body. Depression. Trouble sleeping (insomnia). Week 3 and afterward After the first 2 3 weeks of quitting, you may start to notice more positive results, such as: Better sense of smell and taste. Less coughing and sore throat. Slower heart rate. Lower blood pressure. Clearer skin. Better breathing. Fewer sick days. Quitting smoking can be hard. Do not give up if you fail the first time. Some people need to try a few times before they succeed. Do your best to stick to your quit plan, and talk with your doctor if you have any questions or concerns. Summary Smoking tobacco is the leading cause of preventable . Quitting smoking can be hard, but it is one of the best things that you can do for your health. When you decide to quit smoking, make a plan to help you succeed. Quit smoking right away, not slowly over a period of time. When you start quitting, seek help from your doctor, family, or friends. This information is not intended to replace advice given to you by your health care provider. Make sure you discuss any questions you have with your health care provider. Document Released: 02/28/2010 Document Revised: 07/22/2019 Document Reviewed: 07/23/2019 Elsevier Patient Education 2020 [employer] Smoking Tobacco Information, Adult Smoking tobacco can be harmful to your health. Tobacco contains a poisonous (toxic), colorless chemical called nicotine. Nicotine is addictive. It changes the brain and can make it hard to stop smoking. Tobacco also has other toxic chemicals that can hurt your body and raise your risk of many cancers. How can smoking tobacco affect me? Smoking tobacco puts you at risk for: Cancer. Smoking is most commonly associated with lung cancer, but can also lead to cancer in other parts of the body. Chronic obstructive pulmonary disease (COPD). This is a long-term lung condition that makes it hard to breathe. It also gets worse over time. High blood pressure (hypertension), heart disease, stroke, or heart attack. Lung infections, such as pneumonia. Cataracts. This is when the lenses in the eyes become clouded. Digestive problems. This may include peptic ulcers, heartburn, and gastroesophageal reflux disease (GERD). Oral health problems, such as gum disease and tooth loss. Loss of taste and smell. Smoking can affect your appearance by causing: Wrinkles. Yellow or stained teeth, fingers, and fingernails. Smoking tobacco can also affect your social life, because: It may be challenging to find places to smoke when away from home. Many workplaces, restaurants, hotels, and public places are tobacco-free. Smoking is expensive. This is due to the cost of tobacco and the long-term costs of treating health problems from smoking. Secondhand smoke may affect those around you. Secondhand smoke can cause lung cancer, breathing problems, and heart disease. Children of smokers have a higher risk for: ? Sudden infant syndrome (SIDS). ? Ear infections. ? Lung infections. If you currently smoke tobacco, quitting now can help you: Lead a longer and healthier life. Look, smell, breathe, and feel better over time. Save money. Protect others from the harms of secondhand smoke. What actions can I take to prevent health problems? Quit smoking Do not start smoking. Quit if you already do. Make a plan to quit smoking and commit to it. Look for programs to help you and ask your health care provider for recommendations and ideas. Set a date and write down all the reasons you want to quit. Let your friends and family know you are quitting so they can help and support you. Consider finding friends who also want to quit. It can be easier to quit with someone else, so that you can support each other. Talk with your health care provider about using nicotine replacement medicines to help you quit, such as gum, lozenges, patches, sprays, or pills. Do not replace cigarette smoking with electronic cigarettes, which are commonly called e-cigarettes. The safety of e-cigarettes is not known, and some may contain harmful chemicals. If you try to quit but return to smoking, stay positive. It is common to slip up when you first quit, so take it one day at a time. Be prepared for cravings. When you feel the urge to smoke, chew gum or suck on hard candy. Lifestyle Stay busy and take care of your body. Drink enough fluid to keep your urine pale yellow. Get plenty of exercise and eat a healthy diet. This can help prevent weight gain after quitting. Monitor your eating habits. Quitting smoking can cause you to have a larger appetite than when you smoke. Find ways to relax. Go out with friends or family to a movie or a restaurant where people do not smoke. Ask your health care provider about having regular tests (screenings) to check for cancer. This may include blood tests, imaging tests, and other tests. Find ways to manage your stress, such as meditation, yoga, or exercise. Where to find support To get support to quit smoking, consider: Asking your health care provider for more information and resources. Taking classes to learn more about quitting smoking. Looking for local organizations that offer resources about quitting smoking. Joining a support group for people who want to quit smoking in your local community. Calling the smokefree.gov counselor helpline: 6-322-Mpdx-Now ( ) Where to find more information You may find more information about quitting smoking from: HelpGuide.org: www.helpguide.org Smokefree.gov: smokefree.gov [place] [employer]: www.lung.org Contact a health care provider if you: Have problems breathing. Notice that your lips, nose, or fingers turn blue. Have chest pain. Are coughing up blood. Feel faint or you pass out. Have other health changes that cause you to worry. Summary Smoking tobacco can negatively affect your health, the health of those around you, your finances, and your social life. Do not start smoking. Quit if you already do. If you need help quitting, ask your health care provider. Think about joining a support group for people who want to quit smoking in your local community. There are many effective programs that will help you to quit this behavior. This information is not intended to replace advice given to you by your health care provider. Make sure you discuss any questions you have with your health care provider. Document Released: 05/19/2017 Document Revised: 06/23/2018 Document Reviewed: 05/19/2017 [employer] Patient Education 2020 [employer] Coping with Quitting Smoking Quitting smoking is a physical and mental challenge. You will face cravings, withdrawal symptoms, and temptation. Before quitting, work with your health care provider to make a plan that can help you cope. Preparation can help you quit and keep you from giving in. How can I cope with cravings? Cravings usually last for 5 10 minutes. If you get through it, the craving will pass. Consider taking the following actions to help you cope with cravings: Keep your mouth busy: ? Chew sugar-free gum. ? Suck on hard candies or a straw. ? [place] your teeth. Keep your hands and body busy: ? Immediately change to a different activity when you feel a craving. ? Squeeze or play with a ball. ? Do an activity or a hobby, like making bead jewelry, practicing needlepoint, or working with wood. ? Mix up your normal routine. ? Take a short exercise break. Go for a quick walk or run up and down stairs. ? Spend time in public places where smoking is not allowed. Focus on doing something kind or helpful for someone else. Call a friend or family member to talk during a craving. Join a support group. Call a quit line, such as 3-885-VZXITraffic.comNOW. Talk with your health care provider about medicines that might help you cope with cravings and make quitting easier for you. How can I deal with withdrawal symptoms? Your body may experience negative effects as it tries to get used to not having nicotine in the system. These effects are called withdrawal symptoms. They may include: Feeling hungrier than normal. Trouble concentrating. Irritability. Trouble sleeping. Feeling depressed. Restlessness and agitation. Craving a cigarette. To manage withdrawal symptoms: Avoid places, people, and activities that trigger your cravings. Remember why you want to quit. Get plenty of sleep. Avoid coffee and other caffeinated drinks. These may worsen some of your symptoms. How can I handle social situations? Social situations can be difficult when you are quitting smoking, especially in the first few weeks. To manage this, you can: Avoid parties, bars, and other social situations where people might be smoking. Avoid alcohol. Leave right away if you have the urge to smoke. Explain to your family and friends that you are quitting smoking. Ask for understanding and support. Plan activities with friends or family where smoking is not an option. What are some ways I can cope with stress? Wanting to smoke may cause stress, and stress can make you want to smoke. Find ways to manage your stress. Relaxation techniques can help. For example: Breathe slowly and deeply, in through your nose and out through your mouth. Listen to soothing, relaxing music. Talk with a family member or friend about your stress. Light a candle. Soak in a bath or take a shower. Think about a peaceful place. What are some ways I can prevent weight gain? Be aware that many people gain weight after they quit smoking. However, not everyone does. To keep from gaining weight, have a plan in place before you quit and stick to the plan after you quit. Your plan should include: Having healthy snacks. When you have a craving, it may help to: ? Eat plain popcorn, crunchy carrots, celery, or other cut vegetables. ? Chew sugar-free gum. Changing how you eat: ? Eat small portion sizes at meals. ? Eat 4 6 small meals throughout the day instead of 1 2 large meals a day. ? Be mindful when you eat. Do not watch television or do other things that might distract you as you eat. Exercising regularly: ? Make time to exercise each day. If you do not have time for a long workout, do short bouts of exercise for 5 10 minutes several times a day. ? Do some form of strengthening exercise, like weight lifting, and some form of aerobic exercise, like running or swimming. Drinking plenty of water or other low-calorie or no-calorie drinks. Drink 6 8 glasses of water daily, or as much as instructed by your health care provider. Summary Quitting smoking is a physical and mental challenge. You will face cravings, withdrawal symptoms, and temptation to smoke again. Preparation can help you as you go through these challenges. You can cope with cravings by keeping your mouth busy (such as by chewing gum), keeping your body and hands busy, and making calls to family, friends, or a helpline for people who want to quit smoking. You can cope with withdrawal symptoms by avoiding places where people smoke, avoiding drinks with caffeine, and getting plenty of rest. Ask your health care provider about the different ways to prevent weight gain, avoid stress, and handle social situations. This information is not intended to replace advice given to you by your health care provider. Make sure you discuss any questions you have with your health care provider. Document Released: 05/01/2017 Document Revised: 04/16/2018 Document Reviewed: 05/01/2017 [employer] Patient Education 2020 [email or web address]. Monitored Anesthesia Care, Care After These instructions provide you with information about caring for yourself after your procedure. Your health care provider may also give you more specific instructions. Your treatment has been planned according to current medical practices, but problems sometimes occur. Call your health care provider if you have any problems or questions after your procedure. What can I expect after the procedure? After your procedure, you may: Feel sleepy for several hours. Feel clumsy and have poor balance for several hours. Feel forgetful about what happened after the procedure. Have poor judgment for several hours. Feel nauseous or vomit. Have a sore throat if you had a breathing tube during the procedure. Follow these instructions at home: For at least 24 hours after the procedure: Have a responsible adult stay with you. It is important to have someone help care for you until you are awake and alert. Rest as needed. Do not: ? Participate in activities in which you could fall or become injured. ? Drive. ? Use heavy machinery. ? Drink alcohol. ? Take sleeping pills or medicines that cause drowsiness. ? Make important decisions or sign legal documents. ? Take care of children on your own. Eating and drinking Follow the diet that is recommended by your health care provider. If you vomit, drink water, juice, or soup when you can drink without vomiting. Make sure you have little or no nausea before eating solid foods. General instructions Take [id number] and prescription medicines only as told by your health care provider. If you have sleep apnea, surgery and certain medicines can increase your risk for breathing problems. Follow instructions from your health care provider about wearing your sleep device: ? Anytime you are sleeping, including during daytime naps. ? While taking prescription pain medicines, sleeping medicines, or medicines that make you drowsy. If you smoke, do not smoke without supervision. Keep all follow-up visits as told by your health care provider. This is important. Contact a health care provider if: You keep feeling nauseous or you keep vomiting. You feel light-headed. You develop a rash. You have a fever. Get help right away if: You have trouble breathing. Summary For several hours after your procedure, you may feel sleepy and have poor judgment. Have a responsible adult stay with you for at least 24 hours or until you are awake and alert. This information is not intended to replace advice given to you by your health care provider. Make sure you discuss any questions you have with your health care provider. Document Released: 08/24/2016 Document Revised: 08/02/2018 Document Reviewed: 08/24/2016 [employer] Patient Education 2020 [email or web address]. Esophagogastroduodenoscopy, Care After Refer to this sheet in the next few weeks. These instructions provide you with information about caring for yourself after your procedure. Your health care provider may also give you more specific instructions. Your treatment has been planned according to current medical practices, but problems sometimes occur. Call your health care provider if you have any problems or questions after your procedure. What can I expect after the procedure? After the procedure, it is common to have: A sore throat. Nausea. Bloating. Dizziness. Fatigue. Follow these instructions at home: Do not eat or drink anything until the numbing medicine (local anesthetic) has worn off and your gag reflex has returned. You will know that the local anesthetic has worn off when you can swallow comfortably. Do not drive for 24 hours if you received a medicine to help you relax (sedative). If your health care provider took a tissue sample for testing during the procedure, make sure to get your test results. This is your responsibility. Ask your health care provider or the department performing the test when your results will be ready. Keep all follow-up visits as told by your health care provider. This is important. Contact a health care provider if: You cannot stop coughing. You are not urinating. You are urinating less than usual. Get help right away if: You have trouble swallowing. You cannot eat or drink. You have throat or chest pain that gets worse. You are dizzy or light-headed. You faint. You have nausea or vomiting. You have chills. You have a fever. You have severe abdominal pain. You have black, tarry, or bloody stools. This information is not intended to replace advice given to you by your health care provider. Make sure you discuss any questions you have with your health care provider. Document Released: 04/20/2013 Document Revised: 10/09/2016 Document Reviewed: 03/27/2016 [employer] Interactive Patient Education 2019 [employer] Additional Information VACCINATE! IT SAVES LIVES! Members of the community who have not yet received the COVID-19 vaccine and would like to receive it can visit one of [facility] vaccine clinics. There are many vaccine clinic locations within the [facility]. For locations and available times, please visit [email or web address] It is important to note that some COVID mobile vaccine clinics are held outdoors and may be canceled in rainy or stormy conditions. To learn more about pediatric vaccinations (ages 5-11), we invite you to visit the [employer] webpage. [email or web address]/pages/[email or web address] 944-Lzxig-Ouleughsumj-Frequently-[email or web address] -Questions.html To learn more about the COVID-19 vaccine, we invite you to visit the CDC website for a list of frequently asked questions.https://www.cdc.gov/coronavi mickey/2019-ncov/vaccines/faq.html [facility] Patient Portal Access Instructions: Stay connected with your healthcare team and access your personal medical information anytime with the [facility] Patient Portal. Please follow the directions below to create your [facility] account: 1.Access the email account you provided upon registration to the hospital/physician office.2.Look for an invitation email from [facility].3.Open the email and access the invitation link: Accept Invitation to [facility].4.Fill in the required juarez to create your account. To access your account, visit [email or web address]. Click the blue button labeled Access Patient Portal and then log in with the username and password that you created in the steps above. You will be able to view your test results, lab results, a summary of your visits, upcoming appointments and more. There is also a convenient messaging option where you can send secure messages to your provider. In addition, you will have the ability to download any documents or summaries to your computer and/or send the information securely to a physician. Remember that your healthcare information is confidential, so carefully consider who you will allow to register [facility] for access to your information. You can also access the [facility] on the [place] [facility] mirela. Simply click on Patient Portal and then log into your account. If you would like to receive a full copy of your medical records, please contact the [facility] Medical Records Department by calling [phone], Thursday through Thursday between 8 a.m. and 4:30 p.m. HOW TO SAFELY DISPOSE OF PRESCRIPTION MEDICATIONS Please use one of the following methods to safely dispose of your unused medications. 1.Use a drug disposal kit: the drug disposal pouch allows you to safely discard your old and unused drugs. Ask your nurse to give you one when you are discharged.2.Visit a local take-back location: Many local pharmacies and police departments have programs that collect old and unwanted prescription drugs. Call your local pharmacy or go to http://2 Minutes/4P5Dm3v to find one close to you.3.Make use of household items: Use cat litter or old coffee grounds to dispose medications if other options are not available. Mix your drugs with these household products, seal them in an airtight container and throw it into the garbage. Call [facility]: [phone] to be sure your drugs can be disposed of in this way. Some medicines may require a different approach.4.Never flush your medications down the toilet. IF YOU HAVE BEEN PRESCRIBED AN OPIOID FOR PAIN If you have been prescribed an opioid (such as hydrocodone, oxycodone or morphine), it is critical to understand the possible side effects and risks of opioid pain medications. Even when taken as directed, opioids can have several side effects including: Tolerance, meaning you might need to take more of a medication for the same pain relief. Nausea, vomiting and/or constipation. Sleepiness, dizziness, dry mouth, confusion, depression or itching. Physical dependence, meaning you have withdrawal symptoms when a medication is stopped, can develop within a few days. KNOW YOUR RESPONSIBILITIES It is important to know exactly how much and how often to take the opioid pain medications you are prescribed. Never take opioids in higher amounts or more often than prescribed. Do not combine opioids with alcohol or other drugs that cause drowsiness, such as benzodiazepines, also known as benzos, including diazepam and alprazolam, muscle relaxants or sleep aids. Never sell or share prescription opioids. This is illegal. Store opioids in a secure place and out of reach of others (including children, family, friends and visitors). The last page of this document has been signed and retained as a CHART COPY. Signatures Patient Education Materials Steps to Quit Smoking, Ruxd-ml-Qsbd Smoking Tobacco Information, Adult Coping with Quitting Smoking Monitored Anesthesia Care, Care After Esophagogastroduodenoscopy, Care After (50562) Medication Leaflets My discharge plan and instructions have been reviewed and explained to me and I,CHARAN GARCIA understand my current condition and have read and understand these discharge instructions. I have received a written copy of the plan/instructions. If I have questions, I am aware that I should contact my doctor. 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 Signature: _ Date/Time: Relationship to Patient: Witness Name/Signature: Date/Time: [facility] Anesthesiology Consult note 06-01-2023 Note Date & Type Note Facility 06-01-2023 Anesthesiology Consult note Patient: CHARAN GARCIA Age: 63 years Sex: Male : 1960 Associated Diagnoses: None Author: WESLEY INFANTE APRN-STEVEDORING SUPERINTENDENT Assessment Postanesthesia assessment Vitals: Vital signs from flowsheet : Vital Signs 06/01/2023 10:05 EST Heart Rate Monitored 91 bpm bpm Respiratory Rate - Anes 5 br/min br/min 06/01/2023 10:00 EST Heart Rate Monitored 70 bpm bpm Respiratory Rate - Anes 23 br/min br/min Systolic Blood Pressure Non-Invasive 133 mmHg mmHg Diastolic Blood Pressure Non-Invasive 66 mmHg mmHg 06/01/2023 9:57 EST Systolic Blood Pressure Non-Invasive 147 mmHg mmHg Diastolic Blood Pressure Non-Invasive 83 mmHg mmHg 06/01/2023 8:34 EST Temperature Temporal Artery 36.8 DegC Peripheral Pulse Rate 72 bpm Respiratory Rate 20 br/min Systolic Blood Pressure Non-Invasive 123 mmHg Diastolic Blood Pressure Non-Invasive 75 mmHg , Measurements from flowsheet . Mental status: alert & oriented x 4. Respiratory function: respirations are non-labored. Respiratory support: none. CV function: Normal rate. Cardiovascular support: none. Pain. Nausea status: see nursing documentation of medications. Postoperative hydration status: within normal limits. Digitally Signed by WESLEY INFATNE on 06/01/2023 10:10 AM [facility] Anesthesiology Consult note 06-01-2023 Note Date & Type Note Facility 06-01-2023 Anesthesiology Consult note Patient: CHARAN GARCIA Age: 63 years Sex: Male : 1960 Associated Diagnoses: None Author: WESLEY INFANTE Preoperative Information Time of last food or liquid consumption: 06/01/2023 00:00:00 Anesthesia history Patient's history: negative. Family's history: negative. Health Status Allergies: Allergic Reactions (Selected) No Known Medication Allergies, Allergies (1) ActiveReaction No Known Medication AllergiesNone Documented Current medications: (Selected) Inpatient Medications Ordered LR 1,000 mL: 50 mL/hr, Intravenous Documented Medications Documented Vitamin D2 50 mcg (2000 intl units) oral capsule: 50 mcg, 1 cap(s), Oral, qDay, with food, 60 cap(s), 0 Refill(s) atorvastatin 80 mg oral tablet: 0 Refill(s) clopidogrel 75 mg oral tablet: 0 Refill(s) esomeprazole 40 mg oral delayed release capsule: 40 mg, 1 cap(s), Oral, BID, 30 cap(s), 0 Refill(s) hydrochlorothiazide-losartan 12.5-50 mg oral tablet: 0 Refill(s), Medications (1) Active Scheduled: (0) Continuous: (1) Lactated Ringers 1,000 mL 1,000 mL, Intravenous, 50 mL/hr PRN: (0) Problem list: Active Problems (4) Arthritis Hypertension Stroke Tobacco use Histories Past Medical History: No active or resolved past medical history items have been selected or recorded. Family History: Stroke Mother Cancer Mother Father COPD Father Procedure history: Right ankle ([id number]). Comments: 06/01/2023 8:24 EST - Demiter Lida Radha RN fracture right ankle with metal fixation. Colonoscopy ([id number]). Social History Social & Psychosocial Habits Alcohol 06/01/2023 Use: Current Substance Abuse 06/01/2023 Use: Current Type: Marijuana Tobacco 06/01/2023 Tobacco Use: 10 or more cigarettes (1/ Type: Cigarettes Tobacco use per day: 1 Number of years: 50 Home/Environment 06/01/2023 Living situation: Home/Independent Domestic Concerns None Nutrition/Health 06/01/2023 Type of diet: Regular Caffeine intake amount: 4 servings. Appetite Good Eating Difficulties Chewing, No teeth . Physical Examination Vital Signs 06/01/2023 8:34 EST Temperature Temporal Artery 36.8 DegC Peripheral Pulse Rate 72 bpm Respiratory Rate 20 br/min Systolic Blood Pressure Non-Invasive 123 mmHg Diastolic Blood Pressure Non-Invasive 75 mmHg Vital Signs(last 24 hrs) Last Charted Resp Rate 20 br/min (JUN 01 08:34) LLC399 mmHg (JUN 01 08:34) DBP75 mmHg (JUN 01 08:34) Measurements from flowsheet : Measurements 06/01/2023 8:34 EST Height 172.72 cm Admission Weight 75.0 kg [place] Body Weight 68.40 kg Admission Body Mass Index 25.14 m2 Pain assessment: Pain Assessment 06/01/2023 8:34 EST Primary Pain Intensity 0 Pain Scale Type 0-10 Pain scale . General: Alert and oriented. Airway: Normal temporomandibular joint mobility, Normal mouth, Normal neck range of motion. Mallampati classification: II (soft palate, fauces, uvula visible). Dentition Evaluation: Denies loose/chipped teeth. Respiratory: Respirations are non-labored, smokers cough. Cardiovascular: Normal rate. Neurologic: Alert, Oriented. Review / Management Results review: No qualifying data available , Lab results 06/01/2023 9:56 EST SN - Proc - Anesthesia Type MAC SN - Proc - EBL 0 mL SN - Proc - Actual Procedure ESOPHAGOGASTRODUODENOSCOPY 06/01/2023 9:55 EST SN - PP - Body Position Lateral Left Side-up Standard Intra-op 06/01/2023 9:54 EST SN - GCD - ASA Class 3 SN - GCD - Post-operative Diagnosis GASTROESOPHAGEAL REFLUX DISEASE SN - GCD - Case Level OPD Level 3 06/01/2023 9:52 EST SN - Cul - Culture Type No Specimen per Surgeon SN - Cul - Kind Specimen 06/01/2023 9:51 EST SN - CAt - Case Attendee SN - CAt - Case Attendee SN - CAt - Case Attendee SN - CAt - Case Attendee SN - CAt - Case Attendee SN - CAt - Case Attendee SN - CAt - Case Attendee SN - CAt - Case Attendee SN - CAt - Role Performed Primary Surgeon SN - CAt - Role Performed Civil Preparedness Training Officer 1 SN - CAt - Role Performed STEVEDORING SUPERINTENDENT SN - CAt - Role Performed Air Defense Artillery Senior Sergeant 06/01/2023 8:41 EST Lactated Ringers Injection Begin Bag 1,000 mL mL 06/01/2023 8:34 EST Height 172.72 cm Admission Weight 75.0 kg [place] Body Weight 68.40 kg Admission Body Mass Index 25.14 m2 Temperature Temporal Artery 36.8 DegC Peripheral Pulse Rate 72 bpm Respiratory Rate 20 br/min Systolic Blood Pressure Non-Invasive 123 mmHg Diastolic Blood Pressure Non-Invasive 75 mmHg Primary Pain Intensity 0 Pain Scale Type 0-10 Pain scale Heart Sounds ICU S1S2 Heart Rhythm Regular Respirations Unlabored Cough None Oxygen Therapy Room air Oxygen Saturation 95 % Abdomen Description Non-distended, Soft Neurological Symptoms Patient denies Level of Consciousness Alert Orientation Oriented x 4 Positioning Repositions self Standard Safety ID band on, Call device within reach, Bed in low position, Wheels locked, Visitor at bedside 06/01/2023 8:33 EST IV Present Present Allergies Yes Wax Bleacher On Yes Consent Form Signed Yes Patient Dressed In Hospital gown History & Physical Update On Chart Yes History & Physical On Chart Yes Obstructive Sleep Apnea Assess Completed Yes NPO Status Maintained Patient ID Band on and Verified Yes Implants Verified Yes Pacemaker/AICD Verified Yes Last Fluid Intake 05/31/2023 20:30 Last Food Intake 05/31/2023 20:30 Last Void 06/01/2023 8:34 06/01/2023 8:29 EST Designated Person #1 We May Share PRIMO abreu. [phone] Designated Person #1 Relationship Spouse Privacy Restrictions Requested None Status N/A Sensory Deficits None Sleep Apnea Snore No Sleep Apnea Tired No Sleep Apnea Obstruction No Sleep Apnea Pressure Yes Sleep Apnea BMI No Sleep Apnea Age Yes Sleep Apnea Neck No Sleep Apnea Gender Yes Sleep Apnea Score 3 Diagnosed With Sleep Apnea No Advanced Directives No - refuses information Infectious Disease Symptoms Patient states no symptoms Infectious Disease Recent Exposure No Alcohol and Drug Use No Employee of Institutional Living No Health Care Employee No History of Exposure to TB No History of Positive Chest X-Ray for TB No History of Positive TB Skin Test No Homeless No Known Immunosuppression No Recent Immigrant No Resident of Institutional Living No Bloody Sputum No Fatigue No Fever No Loss of Appetite No Night Sweats No Persistent Cough > 3 Weeks No Weight Loss No Barriers to Learning None evident Teaching Method Explanation Preferred Spoken Language Bahamian Preferred Written Language Bahamian Teaching Evaluation No further teaching needed Safety Brochure Information Reviewed Unable to complete [facility] Video Viewed No Information Given by Patient Patient's Current Physicians dr frederick ([place]) Discharge To, Anticipated Home with family care Prev Test Positive/Diagnosis w/COVID-19 Yes Previous COVID-19 Positive 2017 Current Quarantine/Isolated any Illness No Any Contact with Sick Animals/Birds No Traveled Anywhere in Last 30 Days No Lost Weight Unintentionally Recently No Eat Poorly Due to Decreased Appetite No Total MST Score 0 N/A Personal Devices, Patient Valuables None Admission Note-Nursing Same Day Patient History . Assessment and Plan [place] [employer] Anesthesiologists (ASA) physical status classification: Class III. Anesthetic Preoperative Plan Anesthetic technique: MAC. Informed consent: signed by patient. Digitally Signed by WESLEY INFANTE on 06/01/2023 10:00 AM [facility] Evaluation + Plan note Note Date & Type Note Facility Evaluation + Plan note No data available for this section [facility] Summary Purpose Family History No Family History Records Found Advance Directives No Advanced Directives Records Found Additional Source Comments (unrecognized sect ion and content) No Status Records Found INFORMATION SOURCE (unrecogn ized section and content) DATE CREATED AUTHOR 06/08/2023 [facility] ([place]) FOR RECORDS PERTAINING TO PATIENTS WHO ARE OR HAVE BEEN ENROLLED IN A CHEMICAL DEPENDENCY/SUBSTANCEABUSE PROGRAM, SOME INFORMATION MAY BE OMITTED. This clinical summary was aggregated from multiple sources. Caution should be exercised in using it in the provision of clinical care. This summary normalizes information from multiple sources, and as a consequence, information in this document may materially change the coding, format and clinical context of patient data. In addition, data may be omitted in some cases. CLINICAL DECISIONS SHOULD BE BASED ON THE PRIMARY CLINICAL RECORDS. [facility] [employer], [facility]. provides no warranty or guarantee of the accuracy or completeness of information in this document.
[2024-03-14 12:34] LABS: ALB/GLOB Ratio 1.2 RATIO (0.9-2.4); AST(SGOT) 13 U/L (15-37); Alanine Aminotransfer ALT/SGPT 23 U/L (16-61); Albumin, Serum 3.9 g/dL (3.2-5.0); Alkaline Phosphatase 83 U/L (45-117); Anion Gap 7 (5-15); BUN 14 mg/dL (7-18); BUN/Creat Ratio 15.3 RATIO (10-20); Calcium,Total 9.1 mg/dL (8.5-10.1); Chloride 101 mmol/L (98-107); Creatinine, Serum 0.92 mg/dL (0.70-1.30); EST Glomerular Filtration Rate 88 mL/min (>60); Est Glom Filt Rate - Afr Amer 106 mL/min (>60); Globulin 3.2 g/dL (2.2-4.2); Glucose 101 mg/dL (74-106); Potassium 3.6 mmol/L (3.5-5.1); Protein, Total 7.1 g/dL (6.4-8.2); Sodium Level 137 mmol/L (136-145)
== END | disposition home or self-care (01) ==
LOC: MFPLAB 09:37
PROVIDERS: PCP Family Medicine; Referring Provider Family Medicine; Visit Provider Family Medicine
DX: E87.6 Hypokalemia (principal)
CPT/HCPCS: 36415; 80053

== ENCOUNTER 2024-06-12 18:31 | Emergency (ER) | payer MEDICARE, SELFPAY ==
[2024-06-12] VITALS (9 sets, daily range): BP systolic 136–176; BP diastolic 72–87; PULSE 71–81; RESP 11–22; TEMP 36.5–36.8; O2SAT 93–98; BMI 24.7
--- NOTE | 2024-06-12 18:57 | EKG12_ITS ---
Test Reason : CP Blood Pressure : */* mmHG Vent. Rate : 76 BPM Atrial Rate : 76 BPM P-R Int : 158 ms QRS Dur : 80 ms QT Int : 392 ms P-R-T Axes : 83 39 41 degrees QTcB Int : 441 ms Normal sinus rhythm Normal ECG Confirmed by MARLY NEGRON, THAD ([id number]), marketing editor ALIX PENA ([id number]) on 06/14/2024 6:19:01 AM Referred By: ARMANI Confirmed By: THAD LUKE MD
--- NOTE | 2024-06-12 19:00 | RAD_ITS ---
EXAM: XR CHEST, 1 VIEW CLINICAL INDICATION: chest pain TECHNIQUE: Frontal view of the chest. COMPARISON: November 26, 2022 FINDINGS: LUNGS AND PLEURAL SPACES: Unremarkable. No consolidation or edema. No pneumothorax. No effusion. HEART: Unremarkable. Cardiac silhouette not enlarged. MEDIASTINUM: Central airways and mediastinal contour are unremarkable. BONES/JOINTS: Unremarkable. No acute fracture. SOFT TISSUES: Unremarkable. RAD/Chest 1 View (Portable) IMPRESSION: No radiographic evidence of acute cardiopulmonary disease. Electronically Signed: Mauro Branham MD at 20:44 EST ,
[2024-06-12 19:16] LABS: Absolute Lymphocyte Count 2.06 X10^3/uL (0.83-4.51); Absolute Neutrophil Count 5.3 X10^3/uL (2.0-7.7); Basophil# 0.05 X10^3/uL; Basophil% 0.6 % (0-1); Eosinophil# 0.37 X10^3/uL; Eosinophils% 4.3 % (0-5); Hematocrit 43.5 % (40-54); Lymphocyte # 2.06 X10^3/ul (0.83-4.51); Lymphocyte % 24.2 % (19-41); Mean Corp Hgb Conc 34.5 g/dL (32-36); Mean Corpuscular Hgb 33.1 pg (27.0-32.0); Mean Platelet Vol. 10.2 fl (6.2-12.0); Monocyte# 0.76 X10^3/uL; Monocyte% 8.9 % (0-10); NRBC Flagged by Analyzer 0 % (0-5); Neutrophil # 5.25 X10^3/uL (2.7-7.7); Neutrophil % 61.6 % (47-70); Platelet Count 204 K/mm3 (150-450); RBC Distribution Width CV 13.8 % (11.6-14.6); RBC Distribution Width SD 49.1 fl (35.1-43.9); Red Blood Count 4.53 M/mm3 (4.6-6.2); White Blood Count 8.5 K/mm3 (4.4-11.0)
[2024-06-12 19:18] LABS: Partial Thromboplast Time 21.5 Seconds (24.1-36.2)
--- NOTE | 2024-06-12 19:19 | EDS_ITS ---
HPI History of Present Illness Chief Complaint: Chest Pain Narrative Narrative: Chief complaint and HPI: Chest pain. 64-year-old male with past medical history of CVA, HLD, HTN, GERD presents for evaluation of chest pain. Patient states for the past several days he has been having episodic chest pain. He states that he thought it was secondary to his GERD however it has not improved. Chest pain is midsternal. Patient states that it fluctuates in intensity. Describes the pain as sharp. States he has had this pain intermittently in the past. He denies any previous CAD. Has a history of pleurisy. History of tobacco abuse. Denies any fever, chills, nausea, vomiting, abdominal pain. Patient states that the pain is worse with inspiration however denies shortness of breath. Denies any bilateral lower extremity swelling or pain. Denies any previous history of PE or DVT. Denies any recent trauma or surgery. Review of systems: See HPI Medications: As listed on the chart Allergies: As listed on the chart PFSH: Per chart Vital signs: As listed on the chart. Reviewed. Physical exam: Gen: A&O x3, anxious Head: Normocephalic, atraumatic Eyes: No sclera icterus, conjunctiva clear, PERRL, EOMI ENT: Moist mucous membranes Neck: Trachea midline, No JVD CV: RRR, no murmurs, no peripheral edema Resp: Lungs CTA BL, no w/r/c GI: Abd soft, non-distended, non-tender, no r/r/g Musc: Full ROM, no deformity Skin: Warm, dry Neuro: Alert, oriented, grossly intact, sensation intact Psych: Cooperative, anxious [facility] Medical History GERD (gastroesophageal reflux disease) Home Medications ?Medication ?Instructions ?Recorded ?Last Taken ?Type esomeprazole magnesium 20 mg 40 mg PO Q12H 11/26/22 11/26/22 History capsule,delayed release losartan 50 mg-hydrochlorothiazide 1 tab PO DAILY #90 tabs 11/28/22 Unknown Rx 12.5 mg tablet aspirin 81 mg chewable tablet 81 mg PO BREAKFAST PRN chest pain 06/12/24 Unknown History Allergy/AdvReac Type Severity Reaction Status Date / Time No Known Allergies Allergy Verified 11/26/22 12:00 Family History (Updated 11/26/22 @ 16:[address] Malachi Martinez MD) Mother CVA (cerebral vascular accident) Surgical History (Updated 11/26/22 @ 15:30 by Quynh Goldberg) History of ankle surgery Social History Smoking Status: Current every day smoker tobacco type: cigarettes EXAM Physical Exam Const Vital Signs: 06/12/24 18:32 06/12/24 19:26 06/12/24 19:31 Temperature 97.7 F L Temperature Source Oral Pulse Rate 81 72 Respiratory Rate 22 H 18 Respiratory Effort Normal Non-Labored Blood Pressure 176/87 H 163/75 H Blood Pressure Mean 116 104 Pulse Ox 98 93 Oxygen Delivery Method Room Air Room Air 06/12/24 19:47 06/12/24 20:21 06/12/24 20:30 Temperature Temperature Source Pulse Rate 71 72 76 Respiratory Rate 18 15 15 Respiratory Effort Blood Pressure 156/84 H 155/84 H Blood Pressure Mean 108 102 Pulse Ox 98 97 97 Oxygen Delivery Method Room Air Room Air 06/12/24 20:45 06/12/24 21:00 06/12/24 22:07 Temperature Temperature Source Pulse Rate 72 79 Respiratory Rate 11 L 18 Respiratory Effort Blood Pressure 136/72 H 153/77 H 148/76 H Blood Pressure Mean 91 101 100 Pulse Ox 97 98 Oxygen Delivery Method Room Air Room Air 06/12/24 22:20 Temperature 98.3 F Temperature Source Pulse Rate 75 Respiratory Rate 18 Respiratory Effort Blood Pressure 147/76 H Blood Pressure Mean 99 Pulse Ox 96 Oxygen Delivery Method MDM MDM MDM Narrative Medical decision making narrative: 64-year-old male with past medical history of CVA, HLD, HTN, GERD presents for evaluation of chest pain. Differential diagnosis includes but is not limited to GERD, gastritis, pleurisy, electrolyte abnormality, pneumonia, CHF, anemia, arrhythmia, ACS, low risk for PE. Aspirin, morphine, Zofran, Pepcid ordered for symptoms. Chest pain is atypical in the sense that it is sharp and fluctuates in intensity. Worse with deep inspiration. Laboratory workup ordered including chest x-ray. EKG and chest x-ray reviewed see below. CBC without leukocytosis or anemia. Coagulation panel unremarkable. D-dimer unremarkable. CMP without significant electrolyte abnormality, TERA, or transaminitis. BNP unremarkable. Lipase unremarkable. Troponins are flat. On reevaluation, patient states his chest pain has improved. States he still occasionally gets it with deep inspiration and still describes it as sharp. At this point in time no clear etiology for patient's pain. However it is atypical in nature and has been ongoing for several days. His heart score is a 3 which puts him in low risk for ACS. Chest pain may be secondary to pleurisy given patient's previous history. Patient was updated on all the results. Given that patient is still intermittently having the pain with deep inspiration I did discuss admission for observation versus discharge home. Patient would like to discharge home. I do think this is appropriate. Patient is to follow-up with PCP. Return precautions explained. He confirmed understanding of the plan. EKG: Interpreted by me/EM physician: Not EKG shows normal sinus rhythm without any acute ischemic changes. Heart rate 76. Diagnostic: Interpreted by me/EM physician: Chest x-ray without pneumonia, effusion, cardiomegaly, pneumothorax Impression: 1. Atypical chest pain 2. History of pleurisy Lab Data Labs: Laboratory Results - last 24 hr 06/12/24 06/12/24 18:52 20:04 WBC 8.5 RBC 4.53 L Hgb 15.0 Hct 43.5 MCV 96.0 H MCH 33.1 H MCHC 34.5 RDW Std Deviation 49.1 H RDW Coeff of Birdie 13.8 Plt Count 204 MPV 10.2 Immature Gran % (Auto) 0.400 Neut % (Auto) 61.6 Lymph % (Auto) 24.2 [place] % (Auto) 8.9 Eos % (Auto) 4.3 Baso % (Auto) 0.6 Absolute Neuts (auto) 5.3 Absolute Lymphs (auto) 2.06 Nucleated RBC % 0 PT 12.5 INR 0.9 APTT 21.5 L D-Dimer Quant (PE/DVT) 0.40 Sodium 139 Potassium 3.7 Chloride 108 H Carbon Dioxide 27.0 Anion Gap 4 L BUN 14 Creatinine 0.95 Est GFR (MDRD) Af Amer 101 Est GFR (MDRD) Non-Af 84 BUN/Creatinine Ratio 14.7 Glucose 88 Calcium 8.9 Total Bilirubin 0.30 AST 15 ALT 25 Alkaline Phosphatase 81 Troponin I High Sens 18 20 B-Natriuretic Peptide 12.2 Total Protein 6.9 Albumin 3.4 Globulin 3.5 Albumin/Globulin Ratio 1.0 Lipase 21 Radiography Diagnostic Testing: Clinical Impression(s) from Imaging Studies Chest X-Ray 06/12/24 19:00 IMPRESSION: No radiographic evidence of acute cardiopulmonary disease. Electronically Signed: Mauro Branham MD at 20:44 EST Reading Location ID and State: [facility] / [place] , Service support , Discharge Plan Triage Chief Complaint: Chest Pain ED Provider: Elvis Gonzalez Dx/Rx/DC Orders Instructions: ED Chest Pain, Uncertain Cause Prescriptions: No Action esomeprazole magnesium 20 mg capsule,delayed release(DR/EC) 40 mg PO Q12H losartan-hydrochlorothiazide 50-12.5 mg tablet 1 tab PO DAILY Qty: 90 0RF aspirin 81 mg Tablet,Chewable 81 mg PO BREAKFAST PRN (Reason: chest pain) Primary Care Provider: Anne Arellano Referrals: Anne Arellano MD [Primary Care Provider] - 3-5 Days Activity Restrictions/Additional Instructions: Follow-up with your primary care physician. Call the office tomorrow to make an appointment. Return back to the ED if symptoms change or worsen. Continue all your home medications. Print Language: Argentine Disposition Disposition: Home, Self Care Discharge Date/Time: 06/12/24 22:20
[2024-06-12] MEDS: Aspirin 81 MG TAB.CHEW 324 MG PO (19:21)
[2024-06-12] MEDS: 0.9% Normal Saline (1000mL) 1,000 ML 999 ML IV (19:22)
[2024-06-12] MEDS: Ondansetron 4 MG/2 ML Vial IV (19:22)
[2024-06-12] MEDS: Morphine 4 MG/ML Syringe IV (19:22)
[2024-06-12 19:29] LABS: AST(SGOT) 15 U/L (15-37); Alanine Aminotransfer ALT/SGPT 25 U/L (16-61); Albumin, Serum 3.4 g/dL (3.2-5.0); Alkaline Phosphatase 81 U/L (45-117); Anion Gap 4 (5-15); BUN 14 mg/dL (7-18); BUN/Creat Ratio 14.7 RATIO (10-20); Calcium,Total 8.9 mg/dL (8.5-10.1); Chloride 108 mmol/L (98-107); Creatinine, Serum 0.95 mg/dL (0.70-1.30); EST Glomerular Filtration Rate 84 mL/min (>60); Est Glom Filt Rate - Afr Amer 101 mL/min (>60); Globulin 3.5 g/dL (2.2-4.2); Glucose 88 mg/dL (74-106); Lipase 21 U/L (13-75); Potassium 3.7 mmol/L (3.5-5.1); Protein, Total 6.9 g/dL (6.4-8.2); Sodium Level 139 mmol/L (136-145); Troponin-I HS (w/2H Reflex) 18 pg/mL (3.0-78.0)
[2024-06-12 19:32] LABS: International Normalized Ratio 0.9; Prothrombin Time (Protime)PT. 12.5 SECONDS (11.7-14.9)
[2024-06-12 19:37] LABS: BNP,B-Type NATRIURETIC PEPTIDE 12.2 pg/mL (0-100)
[2024-06-12] MEDS: Famotidine 200 MG/20 ML MDV 20 MG in 0.9% Normal Saline (Pres. free 8 ML 300 MG IV (19:37)
[2024-06-12 21:03] LABS: Reflex Troponin-HS? (from REC) Y
[2024-06-12 21:38] LABS: Troponin-I HS 20 pg/mL (3.0-78.0)
== END 2024-06-12 22:20 | disposition home or self-care (01) ==
PROVIDERS: Emergency Provider Surgery; PCP Family Medicine; Visit Provider Surgery
DX: R07.9 Chest pain, unspecified (principal); I25.10 Atherosclerotic heart disease of native coronary artery without angina pectoris; F17.210 Nicotine dependence, cigarettes, uncomplicated; Z86.73 Personal history of transient ischemic attack (TIA), and cerebral infarction without residual deficits
CPT/HCPCS: 71045; 80053; 83690; 83880; 84484; 85025; 85379; 85610; 85730; 93005; 96361; 96374; 96375; 99284; A4216; J2405

== ENCOUNTER → 2024-08-23 | Outpatient (CLI) | payer MEDICARE, SELFPAY ==
--- NOTE | 2024-08-23 08:30 | CT_ITS ---
PROCEDURE: CT CHEST, ABD, PEL W/CONTRAST 08/23/2024 REASON FOR EXAM: WEIGHT LOSS, CHEST PAIN, H/O COPD TECHNIQUE: Chest, abdomen and pelvis CT with intravenous contrast. Coronal and Sagittal reconstruction series were provided. One or more dose reduction techniques were used (e.g., Automated exposure control, adjustment of the mA and/or kV according to patient size, use of iterative reconstruction technique. PATIENT PREPARATION: Per protocol ORAL CONTRAST TYPE: None. AMOUNT: mL CONTRAST: Isovue 370 VOLUME: 100ML 18 gauge IV RADIATION DOSE SUMMARY: CTDlvol: 554.3 mGy DLP: 876.7 mGycm COMPARISON: None. FINDINGS: CT CHEST: Hardware: None Lymph nodes: No lymphadenopathy. Heart and Vasculature: The heart is normal in size. The great vessels are normal in size and caliber. No pericardial effusion. Lungs and Airways: Central airways are patent. There is a cavitary lesion within the superior segment of the right lower lobe measuring 1.9 x 2.3 cm, likely representing infectious or inflammatory, less likely neoplastic process. Mild upper lobe predominant centrilobular emphysematous changes within bilateral lungs. Pleura: No pleural effusion or pneumothorax. Bones: No aggressive osseous lesions. No acute fractures. CT ABDOMEN/PELVIS: Liver: Unremarkable Gallbladder: Unremarkable Spleen: Unremarkable Pancreas: No main pancreatic ductal dilation. Adrenals: Unremarkable Kidneys: Kidneys are normal in size and configuration. No hydronephrosis or nephrolithiasis. Bladder: No focal bladder wall thickening. Reproductive Organs: Unremarkable Bowel: Oral contrast opacifies the small bowel and colon. No small bowel or large bowel obstruction or dilation. Diverticulosis within the sigmoid colon. Appendix: Not visualized Lymph nodes: No lymphadenopathy. Vasculature: Patent vasculature. Peritoneum / Retroperitoneum: Unremarkable Bones: No aggressive osseous lesions. No acute fractures. CT/CT Chest, Abd, Pel w/Contrast IMPRESSION: *Cavitary lesion within the superior segment of the right lower lobe. *Mild upper lobe predominant centrilobular emphysematous changes within bilater al lungs. *Diverticulosis within the sigmoid colon. Reading Location: [facility]
== END | disposition home or self-care (01) ==
LOC: CT 08:25
PROVIDERS: PCP Family Medicine; Referring Provider Internal Medicine Gastroenterology; Visit Provider Internal Medicine Gastroenterology
DX: R63.4 Abnormal weight loss (principal); R07.9 Chest pain, unspecified
CPT/HCPCS: 71260; 74177; Q9967

== ENCOUNTER → 2024-08-26 | Outpatient (CLI) | payer MEDICARE, SELFPAY ==
[2024-08-26 18:37] LABS: PSA,Total - Annual Screen 3.02 ng/mL (0.02-4.00)
== END | disposition home or self-care (01) ==
LOC: MFPLAB 14:12
PROVIDERS: PCP Family Medicine
DX: Z12.5 Encounter for screening for malignant neoplasm of prostate (principal)
CPT/HCPCS: 36415; 84153; G0103

== ENCOUNTER → 2025-01-17 | Outpatient (CLI) | payer MEDICARE, SELFPAY ==
--- NOTE | 2025-01-17 14:29 | RAD_ITS ---
EXAM: XR Left Wrist Complete, 3 or More Views CLINICAL INDICATION: PAIN WITH NUMBNESS TECHNIQUE: Frontal, lateral and oblique views of the left wrist. COMPARISON: No relevant prior studies available. FINDINGS: BONES/JOINTS: Small bony fragment of the triquetrum could be avulsion fracture of indeterminate age. Mild widening of the scapholunate joint space concerning for ligamentous injury. Further evaluation with MRI is recommended. 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 Mild degenerative changes of the intercarpal joints. Moderate degenerative change of the 1st carpometacarpal joint. No dislocation. SOFT TISSUES: Unremarkable. No radiopaque foreign body. RAD/Wrist min 3 Views IMPRESSION: 1. Small bony fragment of the triquetrum could be avulsion fracture of indeter minate age. 2. Mild widening of the scapholunate joint space concerning for ligamentous in jury. Further evaluation with MRI is recommended. 3. Degenerative changes as above. Reading Location: [id number]
--- OUTSIDE RECORDS SUMMARY | 2025-01-17 23:15 | XMS RPT_ITS | CCD ---
Author Organization [facility] Care Team Providers Care Branch Service Associate Name Role Phone Care Physician, No Primary Primary Care Provider Unavailable Pay, Dr. Umanzor Emergency Provider Michelle, Dr. Ly Admit Provider Unavailable Michelle, Dr. Ly Attending Provider Unavailable Michelle, Dr. Ly Other Provider Unavailable Dr. Dolores Bustillos Attending Provider MEHRAN NEGRON, DR UMAÑA Attending Unavailabl berna Arellano MD, Chalon Primary Care Provider Dr. Elvis Gonzalez DO Attending Provider Dr. Elvis Gonzalez DO Emergency Provider Adan NEGRON, Anne Referring Provider [phone] Oliver Dang DO Attending Provider Friend Dr. Oliver CACERES Referring Provider McMorrow FINISHING ROOM SUPERVISORTae Davis Attending Provider [phone] Adan, Chalon Primary Care Unavailable Adan, Chalon Referring Unavailable Oliver Dang Attending Unavailable Adan, Anne Referring Unavailable AdanAnne Attending Unavailable Adan, Chalon Primary Care Unavailable Adan, Chalon Primary Care Unavailable McMorrow Tae ABARCA Attending Unavailable Adan, Chalon Primary Care Unavailable FriendOliver Referring Unavailable Oliver Dang Attending Unavailable Adan, Chalon Referring Unavailable Adan, Anne Attending Unavailable Adan, Chalon Primary Care Unavailable Adan, Chalon Primary Care Unavailable Elvis Gonzalez Attending Unavailabl e Medications Current Medications Medication Drug Class(es) Dates Sig (Normalized) Sig (Original) aspirin 81 mg chewable tablet (6 sources) Platelet Aggregation Inhibitor, Nonsteroidal Anti-inflammatory Drug Start: 11-28-2022 End: 06-12-2024 take 1 tablet by mouth at breakfast as needed for pain Aspirin 81 mg Tablet,Chewable Active 81 mg PO WITH BREAKFAST as needed for chest pain June 12, 2024 1:00am cholecalciferol 0.125 mg oral capsule (2 sources) Vitamin D Start: 07-20-2024 take 1 capsule by mouth once daily Cholecalciferol (Vitamin D3) 125 mcg (5,000 unit) capsule Active 125 ug PO daily July 20, 2024 1:00am clopidogrel 75 mg oral tablet (7 sources) P2Y12 Platelet Inhibitor Start: 07-20-2024 take 1 tablet by mouth once daily Clopidogrel (Plavix) 75 mg tablet Active 75 mg PO daily July 20, 2024 1:00am Start: 11-28-2022 End: 06-12-2024 take 1 tablet by mouth once daily Clopidogrel (Plavix) 75 mg tablet Discontinued 75 mg PO DAILY November 28, 2022 12:00am June 12, 2024 8:29pm esomeprazole 40 mg delayed release oral capsule (5 sources) Proton Pump Inhibitor Start: 06-01-2023 esomeprazole 40 mg oral delayed release capsule Dose : 40 mg = 1 cap(s), Oral, BID, # 30 cap(s), 0 Refill(s) Start Date: 06/01/23 Status: Ordered Start: 11-26-2022 take 2 capsules by m outh every twelve hours Esomeprazole Magnesium 20 mg capsule,delayed release(DR/EC) Active 40 mg PO Q12H November 26, 2022 12:00am Start: 11-26-2022 take 20 mg by mouth once daily Esomeprazole Magnesium Active 20 MG PO DAILY November 26, 2022 12:00am hydroCHLOROthiazide 12.5 mg / losartan potassium 50 mg oral tablet (5 sources) Thiazide Diuretic, Angiotensin 2 Receptor Oswaldo Start: 06-01-2023 hydrochlorothiazide-losartan 12.5-50 mg oral tablet 0 Refill(s) Start Date: 06/01/23 Status: Ordered Start: 11-28-2022 End: 07-20-2024 Losartan-Hydrochlorothiazide 50-12.5 mg tablet Discontinued 1 {tbl} PO DAILY November 28, 2022 12:00am July 20, 2024 11:46am Start: 11-28-2022 take 1 tablet by elvis th once daily Losartan-Hydrochlorothiazide Active 1 TA BLET PO DAILY November 28, 2022 12:00am losartan potassium 100 mg oral tablet (2 sources) Angiotensin 2 Receptor Oswaldo Start: 07-20-2024 take 1 tablet by mouth once daily Losartan 100 mg tablet Active 100 mg PO daily July 20, 2024 1:00am naproxen sodium 220 mg oral capsule (10 sources) Nonsteroidal Anti-inflammatory Drug Start: 07-20-2024 take 1 capsule by mouth every twelve hours as needed Naproxen Sodium (Aleve) 220 mg capsule Active 220 mg PO Q12H as needed July 20, 2024 1:00am Start: 10-04-2016 End: 11-28-2022 take 1 tablet by mouth twice daily as needed for pain Naproxen 500 MG tablet Discontinued 500 mg PO TWICE A DAY as needed for pain November 26, 2022 12:00am November 28, 2022 10:48am rosuvastatin calcium 10 mg oral tablet (2 sources) HMG-CoA Reductase Inhibitor Start: 07-20-2024 take 1 tablet by mouth once daily Rosuvastatin (Crestor) 10 mg tablet Active 10 mg PO daily July 20, 2024 1:00am Vitamin D2 50 mcg (2000 intl units) oral capsule (1 source) Start: 06-01-2023 Vitamin D2 50 mcg (2000 intl units) oral capsule Dose : 50 mcg = 1 cap(s), Oral, qDay, with food, # 60 cap(s), 0 Refill(s) Start Date: 06/01/23 Status: Ordered Completed/Discontinued Medications Medication Drug Class(es) Dates Sig (Normalized) Sig (Original) acetaminophen 325 mg / HYDROcodone bitartrate 5 mg oral tablet (4 sources) Opioid Agonist Start: 10-04-2016 End: 11-26-2022 Hydrocodone-Acetami nophen 1 TABLET tablet Discontinued 1 - 2 {tbl} PO EVERY 4 HOURS NEEDED as needed for Pain October 04, 2016 12:00am November 26, 2022 3:35pm Start: 10-04-2016 End: 11-26-2022 take 1 tablet by mouth every four hours as needed Hydrocodone-Acetaminophen Discontinued 1 - 2 TABLET PO EVERY 4 HOURS NEEDED October 04, 2016 12:00am November 26, 2022 3:35pm atorvastatin 80 mg oral tablet (5 sources) HMG-CoA Reductase Inhibitor Start: 11-28-2022 End: 06-12-2024 take 1 tablet by mouth at bedtime Atorvastatin 80 mg Tablet Discontinued 80 mg PO AT BEDTIME 90 November 28, 2022 12:00am June 12, 2024 8:28pm olopatadine 2 mg/ml ophthalmic solution (4 sources) Histamine-1 Receptor Inhibitor Start: 11-26-2022 End: 06-12-2024 take 1 drop(s) into the eye(s) once daily as needed Olopatadine (Eye Allergy Itch Relief) 0.2 % drops Discontinued 1 NMA EACH EYE DAILY as needed for ALLERGIES November 26, 2022 12:00am June 12, 2024 8:30pm PT [facility] Start: 11-26-2022 take 1 drop(s) into the eye(s) once daily as needed Olopatadine (Eye Allergy Itch Relief) 0.2 % drops Active 1 DRP EACH EYE DAILY November 26, 2022 12:00am PT GETS OTC EYE ALLERGY DROPS FROM [facility] TO USE NEEDED raNITIdine 75 mg oral tablet (4 sources) Histamine-2 Receptor Antagonist Start: 10-04-2016 End: 11-26-2022 take 1 tablet by mouth once daily Ranitidine Hcl (Zantac 75) 75 MG tablet Discontinued 75 mg PO DAILY October 04, 2016 12:00am November 26, 2022 3:35pm On Hold: not taking Problems Active Problems Problem Classification Problem Date Documented Date Episodic/Chronic Esophageal disorders (4 sources) Gastroesophageal reflux disease without esophagitis; Translations: [Gastro-esophageal reflux disease without esophagitis] Onset: 06-01-2023 Chronic Essential hypertension (1 source) Essential (primary) hypertension; Translations: [Essential (primary) hypertension] Onset: 03-17-2024 Chronic Malaise and fatigue (6 sources) Left hemiparesis; Translations: [Weakness] 11-26-2022 Episodic Nonspecific chest pain (1 source) Chest pain, unspecified; Translations: [Chest pain, unspecified] Onset: 06-30-2024 Episodic Other nutritional; endocrine; and metabolic disorders (1 source) Abnormal weight loss; Translations: [Abnormal weight loss] Onset: 08-26-2024 Episodic Other screening for suspected conditions (not mental disorders or infectious disease) (1 source) Encounter for screening for malignant neoplasm of prostate; Translations: [Encounter for screening for malignant neoplasm of prostate] Onset: 08-31-2024 Episodic Residual codes; unclassified (4 sources) Tobacco user; Translations: [Tobacco use] 11-26-2022 Episodic Residual codes; unclassified (2 sources) Tobacco use; Translations: [Tobacco use disorder] 11-28-2022 Episodic Transient cerebral ischemia (6 sources) Transient cerebral ischemia; Translations: [Transient cerebral ischemic attack, unspecified] 11-26-2022 Chronic Past or Other Problems Problem Classification Problem Date Documented Da te Episodic/Chronic Fluid and electrolyte disorders (1 source) Hypokalemia; Translations: [Hypokalemia] Onset: 04-03-2024 Episodic Results Test Name Value Interpretation Reference Range Facility PSA, total screeningOrdered By: Tae Gardiner on 08-26-2024 Prostate Specific Antigen Screen 3.02 ng/mL 0.02-4.00 [facility] Comment on above: This test was perfor med using the [employer] tPSA method. Measured values of a patient sample can vary depending on the testing procedure used. PSA values determined on patient samples by different testing procedures cannot be used interchangeably. If there is a change in PSA assays while monitoring therapy, sequential testing should be performed to confirm baseline values. PSA,Total - Annual Screenon 08-26-2024 PSA,TOT SCREEN 3.02 ng/mL Normal 0.02-4.00 [facility] Comment on above: Order Comment: Order Date: 08/26/24Order Info: 2857-1 - PSAComments: cancer screening for prostate Result Comment: This test was performed using the [employer] tPSA method. Measured values of a patient??sample can vary depending on the testing procedure used. PSA values determined on patient samples by different testing procedures cannot be used interchangeably. If there is a change in PSA assays while monitoring therapy, sequential testing should be performed to confirm baseline values. Performed By: #### L [id number] ####[facility] [id number] [place], [address] CT Chest, Abd, Pel w/Contras ton 08-23-2024 CT Chest, Abd, Pel w/Contrast [facility] Imaging Services [address] [place] [address] CT Chest, Abd, Pel w/Contrast MR#: [id number] Acct: [id number] Name: CHARAN GARCIA Rep #: [id number] : 1960 M 64 From: Josefina Nicole MD PCP: Dr. Anne Arellano MD Status: REG CLI Study: CT Chest, Abd, Pel w/Contrast Date of Exam: Exam# [id number] Ordering Dr: Oliver Dang DO PROCEDURE: CT CHEST, ABD, PEL W/CONTRAST 08/23/2024 REASON FOR EXAM: WEIGHT LOSS, CHEST PAIN, H/O COPD TECHNIQUE: Chest, abdomen and pelvis CT with intravenous contrast. Coronal and Sagittal reconstruction series were provided. One or more dose reduction techniques were used (e.g., Automated exposure control, adjustment of the mA and/or kV according to patient size, use of iterative reconstruction technique. PATIENT PREPARATION: Per protocol ORAL CONTRAST TYPE: None. AMOUNT: mL CONTRAST: Isovue 370 VOLUME: 100ML 18 gauge IV RADIATION DOSE SUMMARY: CTDlvol: 554.3 mGy DLP: 876.7 mGycm COMPARISON: None. FINDINGS: CT CHEST: Hardware: None Lymph nodes: No lymphadenopathy. Heart and Vasculature: The heart is normal in size. The great vessels are normal in size and caliber. No pericardial effusion. Lungs and Airways: Central airways are patent. There is a cavitary lesion within the superior segment of the right lower lobe measuring 1.9 x 2.3 cm, likely representing infectious or inflammatory, less likely neoplastic process. Mild upper lobe predominant centrilobular emphysematous changes within bilateral lungs. Pleura: No pleural effusion or pneumothorax. Bones: No aggressive osseous lesions. No acute fractures. CT ABDOMEN/PELVIS: Liver: Unremarkable Gallbladder: Unremarkable Spleen: Unremarkable Pancreas: No main pancreatic ductal dilation. Adrenals: Unremarkable Kidneys: Kidneys are normal in size and configuration. No hydronephrosis or nephrolithiasis. Bladder: No focal bladder wall thickening. Reproductive Organs: Unremarkable Bowel: Oral contrast opacifies the small bowel and colon. No small bowel or large bowel obstruction or dilation. Diverticulosis within the sigmoid colon. Appendix: Not visualized Lymph nodes: No lymphadenopathy. Vasculature: Patent vasculature. Peritoneum / Retroperitoneum: Unremarkable Bones: No aggressive osseous lesions. No acute fractures. CT/CT Chest, Abd, Pel w/Contrast IMPRESSION: *Cavitary lesion within the superior segment of the right lower lobe. *Mild upper lobe predominant centrilobular emphysematous changes within bilateral lungs. *Diverticulosis within the sigmoid colon. Reading Location: [facility] CC: Dr. Anne Arellano MD; Oliver Dang DO Alternative Medicine Practitioner: Signed Normal [facility] Gastroenterology Visit Repor ton 07-20-2024 Gastroenterology Visit Report [facility] Gastroenterology [address] [place] [address] OFFICE VISIT Date of Service: 07/20/24 MR#: [id number] Acct: [id number] Name: CHARAN GARCIA Rep #: [id number] : 1960 Provider: Oliver Dang DO Age/Sex: 64/M Location: [facility] [place] Status: Signed Intake Vital Signs 06/12/24 18:32 Height 5 ft 9 in Intake Visit Reasons: Gastroesophageal reflux disease (GERD) Allergies No Known Allergies Allergy (Verified 11/26/22 12:00) Medications ???Medication ???Instructions ???Recorded ???Confirmed ???Type esomeprazole magnesium 20 mg 40 mg PO Q12H 11/26/22 07/20/24 Hi story capsule,delayed release aspirin 81 mg chewable tablet 81 mg PO BREAKFAST PRN chest pain 06/12/24 07/20/24 History cholecalciferol (vitamin D3) 125 125 mcg PO QDAY 07/20/24 07/20/24 History mcg (5,000 unit) capsule clopidogrel 75 mg tablet (Plavix) 75 mg PO QDAY 07/20/24 07/20/24 H istory losartan 100 mg tablet 100 mg PO QDAY 07/20/24 07/20/24 H istory naproxen sodium 220 mg capsule 220 mg PO Q12H PRN 07/20/24 History (Aleve) rosuvastatin 10 mg tablet (Crestor) 10 mg PO QDAY 07/20/24 07/20/24 History Have you fallen in the past year?: No PFSH Medical History (Updated 07/20/24 @ 10:47 by Erin Guerrero) Hiatal hernia GERD (gastroesophageal reflux disease) Surgical History (Updated 11/26/22 @ 15:30 by Quynh Goldberg) History of ankle surgery Family History (Updated 11/26/22 @ 16:[address] Charan Martinez MD) Mother CVA (cerebral vascular accident) Social History (Updated 07/20/24 @ 14:18 by Erin Guerrero) Smoking Status: Current every day smoker tobacco type: cigarettes substance use type: marijuana HPI HPI Details: CHARAN GARCIA, is a 64 M who presents to the office today for initial consult. *[facility] established 3.5.25 pt reports that he is unsure why he is here. Pt states he had an EGD about 6 months ago and has previously had HB, but changed his diet and is taking esomeprazole 40mg BID and is not having symptoms. He presented to the ED for evaluation of chest pain. Patient states for the past several days he has been having episodic chest pain. He states that he thought it was secondary to his GERD however it has not improved. Chest pain is midsternal. Patient states that it fluctuates in intensity. Describes the pain as sharp. States he has had this pain intermittently in the past. He denies any previous CAD. Has a history of pleurisy. History of tobacco abuse. Denies any fever, chills, nausea, vomiting, abdominal pain. Patient states that the pain is worse with inspiration however denies shortness of breath. Denies any bilateral lower extremity swelling or pain. Denies any previous history of PE or DVT. Denies any recent trauma or surgery. ROS Const Constitutional: Positive for fatigue; No fever(s) or weight change ENT ENT: No difficulty swallowing Gastro GI: Positive for heartburn; No abdominal pain, belching, bloating, change in bowel habits, change in stool character, coffee ground emesis, constipation, cramping, diarrhea, difficulty swallowing, feeling full early, excessive flatus, incontinent of stools, Vomiting blood/hematemesis, Blood in stool, loose stools, Black,tarry stools, nausea/dyspepsia, pain with swallowing, vomiting or other Musc Musculoskeletal: Positive for joint pain, back pain, joint swelling, muscle cramps, muscle weakness, numbness, stiffness, tingling, Arthritis and restless legs Skin Skin: Positive for dry skin; No yellowing of the eye or itchy eyes Neuro Neurology: Positive for numbness, tingling and restless legs Psych Psychiatric: No anxiety and No depression Endo Endocrine: Positive for fatigue; No weight change Aller/Imm Allergy/Immunologic: No itchy eyes Edmar/Lymp Hematologic/Lymphatic: No easy bleeding or easy bruising Exam Const General: cooperative, healthy appearing, comfortable and no acute distress Nutritional Appearance: average body habitus Orientation: alert [facility] Ears: hearing grossly normal bilaterally Nose: external nose normal Face and sinus: normal facial exam Eyes Eyelids: eyelids normal Sclera: sclerae normal Neck Neck: normal visual inspection Chest Chest palpation inspection: normal inspection of the chest Resp Auscultation: Bilateral: Clear to Auscultation Cardio Rate: regular rate Rhythm: regular rhythm GI Inspection: normal to inspection Auscultation: normal bowel sounds Percussion: normal to percussion Palpation: soft and hepatosplenomegaly Rectal Exam: deferred Assessment and Plan Assessment and Plan (1) Gastroesophageal reflux disease: Plan: I think he has cough induced reflux and elements of Pleurisy. I will order CT scan of the chest,abdomen and pelvis. Order (more content not included)... Normal [facility] 12 Lead EKGon 06-12-2024 12 Lead EKG [facility] Cardiovascular Services [address] [place] [address] 12 Lead EKG 06/12/24 1836 MR#: [id number] Acct: [id number] Name: CHARAN GARCIA Rep #: [id number] : 1960 64 From: Rafia Reyes MD Attending Dr: Status: DEP ER Ordering Dr: Elvis Gonzalez DO Date: 5 Location: ED Sex: M C Admitted: Test Reason : CP Blood Pressure : */* mmHG Vent. Rate : 76 BPM Atrial Rate : 76 BPM P-R Int : 158 ms QRS Dur : 80 ms QT Int : 392 ms P-R-T Axes : 83 39 41 degrees QTcB Int : 441 ms Normal sinus rhythm Normal ECG Confirmed by MARLY NEGRONTHAD ([id number]), electronic news gathering editor ALIX PENA ([id number]) on 06/14/2024 6:19:01 AM Referred By: ARMANI Confirmed By: THAD REYES MD 06/14/2419 Date Rafia Reyes MD CC: Dr. Elvis Gnozalez, DO; Dr. Anne Arellano MD Signed Normal [facility] Absolute neutrophil countOrd ered By: Elvis Gonzalez on 06-12-2024 Neutrophils (Bld) [#/Vol] 5.3 10*3/uL 2.0-7.7 [facility] Albumin to globulin ratioOrd ered By: Elvis Gonzalez on 06-12-2024 Albumin/Globulin [Mass ratio] 1.0 {ratio} 0.9-2.4 [facility] BNP (brain natriuretic pepti de measurement)Ordered By: Elvis Gonzalez on 06-12-2024 Natriuretic peptide B (Bld) [Mass/Vol] 12.2 pg/mL 0-100 [facility] BNP,B-Type NATRIURETIC PEPTI Duc 06-12-2024 Natriuretic peptide B (Bld) [Mass/Vol] 12.2 pg/mL Normal 0-100 [facility] Comment on above: Performed By: #### L 300.4310, L300.3900, L100.0100, L300.8000, L503.6620 #### [facility] Laboratory [address] [facility] [place], [place], [id number] Basophil percentageOrdered B y: Elvis Gonzalez on 06-12-2024 Basophils/100 WBC (Bld) 0.6 % 0-1 [facility] Bilirubin, totalOrdered By: Elvis Gonzalez on 06-12-2024 Bilirubin [Mass/Vol] 0.30 mg/dL 0.20-1.00 [facility] Comment on above: For patients on eltr ombopag therapy, use of Dimension [place] TBIL is not recommended. Blood urea nitrogen (BUN)/cr eatinine ratioOrdered By: Elvis Gonzalez on 06-12-2024 Urea nitrogen/Creatinine [Mass ratio] 14.7 mg/mg 10-20 [facility] CBC W/Diff, Automatedon 05-19 Absolute Lymph 2.06 X10 3/uL Normal 0.83-4.51 [facility] Comment on above: Performed By: #### L 300.4310, L300.3900, L100.0100, L300.8000, L503.6620 #### [facility] [address] [place], [address] Absolute Neut 5.3 X10 3/uL Normal 2.0-7.7 [facility] Comment on above: Performed By: #### L 300.4310, L300.3900, L100.0100, L300.8000, L503.6620 #### [facility] [address] [place], [address] Basophils/100 WBC (Bld) 0.6 % Normal 0-1 [facility] Comment on above: Performed By: #### L 300.4310, L300.3900, L100.0100, L300.8000, L503.6620 #### [facility] [address] [place], [address] Eosinophils/100 WBC (Bld) 4.3 % Normal 0-5 [facility] Comment on above: Performed By: #### L 300.4310, L300.3900, L100.0100, L300.8000, L503.6620 #### [facility] [address] [place], [address] Erythrocyte distribution width (RBC) [Ratio] 13.8 % Normal 11.6-14.6 [facility] Comment on above: Performed By: #### L 300.4310, L300.3900, L100.0100, L300.8000, L503.6620 #### [facility] [address] [place], [address] Hematocrit (Bld) [Volume fraction] 43.5 % Normal 40-54 [facility] Comment on above: Performed By: #### L 300.4310, L300.3900, L100.0100, L300.8000, L503.6620 #### [facility] [address] [place], [address] Hemoglobin (Bld) [Mass/Vol] 15.0 g/dL Normal 13.0-16.5 [facility] Comment on above: Performed By: #### L 300.4310, L300.3900, L100.0100, L300.8000, L503.6620 #### [facility] [address] [place], [address] IG% 0.400 Normal 0.0-0.9 [facility] Comment on above: Result Comment: IG% - Immature Granulocytes (promyelocytes, myelocytes and metamyelocytes) > 1% indicates that a LEFT SHIFT is Present. Performed By: #### L 300.4310, L300.3900, L100.0100, L300.8000, L503.6620 #### [facility] [address] [place], [address] Lymphocytes/100 WBC (Bld) 24.2 % Normal 19-41 [facility] Comment on above: Performed By: #### L 300.4310, L300.3900, L100.0100, L300.8000, L503.6620 #### [facility] [address] [place], [address] MCH (RBC) [Entitic mass] 33.1 pg High 27.0-32.0 [facility] Comment on above: Performed By: #### L 300.4310, L300.3900, L100.0100, L300.8000, L503.6620 #### [facility] [address] [place], [address] MCHC (RBC) [Mass/Vol] 34.5 g/dL Normal 32-36 [facility] Comment on above: Performed By: #### L 300.4310, L300.3900, L100.0100, L300.8000, L503.6620 #### [facility] [address] [place], [address] MCV (RBC) [Entitic vol] 96.0 fL High 80-94 [facility] Comment on above: Performed By: #### L 300.4310, L300.3900, L100.0100, L300.8000, L503.6620 #### [facility] [address] [place], [address] Monocytes/100 WBC (Bld) 8.9 % Normal 0-10 [facility] Comment on above: Performed By: #### L 300.4310, L300.3900, L100.0100, L300.8000, L503.6620 #### [facility] [address] [place], [address] Neutrophils/100 WBC (Bld) 61.6 % Normal 47-70 [facility] Comment on above: Performed By: #### L 300.4310, L300.3900, L100.0100, L300.8000, L503.6620 #### [facility] [address] [place], [address] Nucleated RBC (Bld) [#/Vol] 0 10*3/uL Normal 0-5 [facility] Comment on above: Performed By: #### L 300.4310, L300.3900, L100.0100, L300.8000, L503.6620 #### [facility] [address] [place], [address] Platelet mean volume (Bld) [Entitic vol] 10.2 fL Normal 6.2-12.0 [facility] Comment on above: Performed By: #### L 300.4310, L300.3900, L100.0100, L300.8000, L503.6620 #### [facility] [address] [place], [address] Platelets (Bld) [#/Vol] 204 10*3/uL Normal 150-450 [facility] Comment on above: Performed By: #### L 300.4310, L300.3900, L100.0100, L300.8000, L503.6620 #### [facility] [address] [place], [address] RBC (Bld) [#/Vol] 4.53 10*6/uL Low 4.6-6.2 [facility] Comment on above: Performed By: #### L 300.4310, L300.3900, L100.0100, L300.8000, L503.6620 #### [facility] [address] [place], [address] RDW SD 49.1 fl High 35.1-43.9 [facility] Comment on above: Performed By: #### L 300.4310, L300.3900, L100.0100, L300.8000, L503.6620 #### [facility] [address] [place], [address] WBC (Bld) [#/Vol] 8.5 10*3/uL Normal 4.4-11.[address] [facility] Comment on above: Performed By: #### L 300.4310, L300.3900, L100.0100, L300.8000, L503.6620 #### [facility] [address] [place], [address] Carbon dioxide measurementOr dered By: Elvis Gonzalez on 06-12-2024 CO2 [Moles/Vol] 27.0 mmol/L 21.0-32.0 [facility] Chest 1 View (Portable)on Chest 1 View (Portable) [facility] Imaging Services [address] [place] [address] Chest 1 View (Portable) MR#: [id number] Acct: [id number] Name: CHARAN GARCIA Rep #: [id number] : 1960 M 64 From: Mauro Lowery PCP: Dr. Anne Arellano MD Status: REG ER Study: Chest 1 View (Portable) Date of Exam: 06/12/24 Exam# [id number] Ordering Dr: Elvis Gonzalez DO [id number] EXAM: XR CHEST, 1 VIEW CLINICAL INDICATION: chest pain TECHNIQUE: Frontal view of the chest. COMPARISON: November 26, 2022 FINDINGS: LUNGS AND PLEURAL SPACES: Unremarkable. No consolidation or edema. No pneumothorax. No effusion. HEART: Unremarkable. Cardiac silhouette not enlarged. MEDIASTINUM: Central airways and mediastinal contour are unremarkable. BONES/JOINTS: Unremarkable. No acute fracture. SOFT TISSUES: Unremarkable. RAD/Chest 1 View (Portable) IMPRESSION: No radiographic evidence of acute cardiopulmonary disease. Electronically Signed: Mauro Branham MD at 20:44 EST Reading Location ID and State: [facility] / [place] , Service support , CC: Dr. Elvis Gonzalez DO; Dr. Anne Arellano MD Alternative Medicine Practitioner: Signed Normal [facility] Chloride measurementOrdered By: Elvis Gonzalez on 06-12-2024 Chloride [Moles/Vol] 108 mmol/L High 98-107 [facility] Comprehensive Metabolic Prof ilon 06-12-2024 Albumin [Mass/Vol] 3.4 g/dL Normal 3.2-5.[address] [facility] Comment on above: Order Comment: 1Y Performed By: #### L 501.5425, L501.2450, L500.4050 ####[facility] [address] [place], [address] Albumin/Globulin [Mass ratio] 1.0 {ratio} Normal 0.9-2.4 [facility] Comment on above: Order Comment: 1Y Performed By: #### L 501.5425, L501.2450, L500.4050 ####[facility] [address] [place], [address] ALK P 81 U/L Normal 45-117 [facility] Comment on above: Order Comment: 1Y Performed By: #### L 501.5425, L501.2450, L500.4050 ####[facility] [address] [place], [address] ALT [Catalytic activity/Vol] 25 U/L Normal 16-61 [facility] Comment on above: Order Comment: 1Y Performed By: #### L 501.5425, L501.2450, L500.4050 ####[facility] [address] [place], [address] AST [Catalytic activity/Vol] 15 U/L Normal 15-37 [facility] Comment on above: Order Comment: 1Y Performed By: #### L 501.5425, L501.2450, L500.4050 ####[facility] [address] [place], [address] Bilirubin [Mass/Vol] 0.30 mg/dL Normal 0.20-1.00 [facility] Comment on above: Order Comment: 1Y Result Comment: For patients on eltrombopag therapy, use of Dimension [place] TBIL is not recommended. Performed By: #### L 501.5425, L501.2450, L500.4050 ####[facility] [address] [place], [address] BUN/CRE 14.7 RATIO Normal 10-20 [facility] Comment on above: Order Comment: 1Y Performed By: #### L 501.5425, L501.2450, L500.4050 ####[facility] [address] [place], [address] CA,Total 8.9 mg/dL Normal 8.5-10.1 [facility] Comment on above: Order Comment: 1Y Performed By: #### L 501.5425, L501.2450, L500.4050 ####[facility] [address] [place], [address] Chloride [Moles/Vol] 108 mmol/L High 98-107 [facility] Comment on above: Order Comment: 1Y Performed By: #### L 501.5425, L501.2450, L500.4050 ####[facility] [address] [place], [address] CO2 [Moles/Vol] 27.0 mmol/L Normal 21.0-32.0 [facility] Comment on above: Order Comment: 1Y Performed By: #### L 501.5425, L501.2450, L500.4050 ####[facility] [address] [place], [address] Creatinine [Mass/Vol] 0.95 mg/dL Normal 0.70-1.30 [facility] Comment on above: Order Comment: 1Y Result Comment: The validity of the calculated GFR GFRAA in patients over 70 years has not been determined. Clinical correlation is essential. Performed By: #### L 501.5425, L501.2450, L500.4050 ####[facility] [address] [place], [address] EST GFR - AA 101 mL/min Normal >60 [facility] Comment on above: Order Comment: 1Y Result Comment: Afri can [place] GFR Calc Performed By: #### L 501.5425, L501.2450, L500.4050 ####[facility] [address] [place], [address] GAP 4 Low 5-15 [facility] Comment on above: Order Comment: 1Y Performed By: #### L 501.5425, L501.2450, L500.4050 ####[facility] [address] [place], [address] GFR/1.73 sq M.predicted among non-blacks MDRD (S/P/Bld) [Vol rate/Area] 84 mL/min/{1.73_m2} Normal >60 [facility] Comment on above: Order Comment: 1Y Result Comment: Non- GFR Calc Performed By: #### L 501.5425, L501.2450, L500.4050 ####[facility] [address] [place], [address] Globulin (S) [Mass/Vol] 3.5 g/dL Normal 2.2-4.2 [facility] Comment on above: Order Comment: 1Y Performed By: #### L 501.5425, L501.2450, L500.4050 ####[facility] [address] [place], [address] Glucose [Mass/Vol] 88 mg/dL Normal 74-[address] [facility] Comment on above: Order Comment: 1Y Performed By: #### L 501.5425, L501.2450, L500.4050 ####[facility] [address] [place], [address] Potassium [Moles/Vol] 3.7 mmol/L Normal 3.5-5.1 [facility] Comment on above: Order Comment: 1Y Performed By: #### L 501.5425, L501.2450, L500.4050 ####[facility] [address] [place], [address] Sodium [Moles/Vol] 139 mmol/L Normal 136-[address] [facility] Comment on above: Order Comment: 1Y Performed By: #### L 501.5425, L501.2450, L500.4050 ####[facility] [address] [place], [address] T PROT 6.9 g/dL Normal 6.4-8.2 [facility] Comment on above: Order Comment: 1Y Performed By: #### L 501.5425, L501.2450, L500.4050 ####[facility] [address] [place], [address] Urea nitrogen [Mass/Vol] 14 mg/dL Normal 7-18 [facility] Comment on above: Order Comment: 1Y Performed By: #### L 501.5425, L501.2450, L500.4050 ####[facility] [address] [place], [address] D-Dimer Quantitative (DVT/PE )on 06-12-2024 D-DIMER QUANT 0.40 FEU/ug/m Normal 0.27-0.49 [facility] Comment on above: Result Comment: NORM AL D-Dimer level (<0.50) indicates no DVT or PE. Performed By: #### L 300.4310, L300.3900, L100.0100, L300.8000, L503.6620 #### [facility] [address] [place], [address] D-dimer measurement for deep venous thrombosisOrdered By: Elvis Gonzalez on 06-12-2024 D-Dimer Quantitative (PE/DVT) 0.40 FEU/ug/m 0.27-0.49 [facility] Comment on above: NORMAL D-Dimer level (<0.50) indicates no DVT or PE. Emergency Department Summary on 06-12-2024 Emergency Department Summary [facility] Medical Records Department [address] [place] [address] Emergency Department Summary 06/12/24 MR#: [id number] Acct: [id number] Name: CHARAN GARCIA Rep #: [id number] : 1960 64 From: Elvis Gonzalez DO PCP: Dr. Anne Arellano MD Status:DEP ER Location: ED HPI History of Present Illness Chief Complaint: Chest Pain Narrative Narrative: Chief complaint and HPI: Chest pain. 64-year-old male with past medical history of CVA, HLD, HTN, GERD presents for evaluation of chest pain. Patient states for the past several days he has been having episodic chest pain. He states that he thought it was secondary to his GERD however it has not improved. Chest pain is midsternal. Patient states that it fluctuates in intensity. Describes the pain as sharp. States he has had this pain intermittently in the past. He denies any previous CAD. Has a history of pleurisy. History of tobacco abuse. Denies any fever, chills, nausea, vomiting, abdominal pain. Patient states that the pain is worse with inspiration however denies shortness of breath. Denies any bilateral lower extremity swelling or pain. Denies any previous history of PE or DVT. Denies any recent trauma or surgery. Review of systems: See HPI Medications: As listed on the chart Allergies: As listed on the chart PFSH: Per chart Vital signs: As listed on the chart. Reviewed. Physical exam: Gen: A O x3, anxious Head: Normocephalic, atraumatic Eyes: No sclera icterus, conjunctiva clear, PERRL, EOMI ENT: Moist mucous membranes Neck: Trachea midline, No JVD CV: RRR, no murmurs, no peripheral edema Resp: Lungs CTA BL, no w/r/c GI: Abd soft, non-distended, non-tender, no r/r/g Musc: Full ROM, no deformity Skin: Warm, dry Neuro: Alert, oriented, grossly intact, sensation intact Psych: Cooperative, anxious [facility] Medical History GERD (gastroesophageal reflux disease) Home Medications ???Medication ???Instructions ???Recorded ???Last Taken ???Type esomeprazole magnesium 20 mg 40 mg PO Q12H 11/26/22 11/26/22 History capsule,delayed release losartan 50 mg-hydrochlorothiazide 1 tab PO DAILY #90 tabs 11/28/22 Unknown Rx 12.5 mg tablet aspirin 81 mg chewable tablet 81 mg PO BREAKFAST PRN chest pain 06/12/24 Unknown History Allergy/AdvReac Type Severity Reaction Status Date / Time No Known Allergies Allergy Verified 11/26/22 12:00 Family History (Updated 11/26/22 @ 16:[address] Charan Martinez MD) Mother CVA (cerebral vascular accident) Surgical History (Updated 11/26/22 @ 15:30 by Quynh Goldberg) History of ankle surgery Social History Smoking Status: Current every day smoker tobacco type: cigarettes EXAM Physical Exam Const Vital Signs: 06/12/24 18:32 06/12/24 19:26 06/12/24 19:31 Temperature 97.7 F L Temperature Source Oral Pulse Rate 81 72 Respiratory Rate 22 H 18 Respiratory Effort Normal Non-Labored Blood Pressure 176/87 H 163/75 H Blood Pressure Mean 116 104 Pulse Ox 98 93 Oxygen Delivery Method Room Air Room Air 06/12/24 19:47 06/12/24 20:21 06/12/24 20:30 Temperature Temperature Source Pulse Rate 71 72 76 Respiratory Rate 18 15 15 Respiratory Effort Blood Pressure 156/84 H 155/84 H Blood Pressure Mean 108 102 Pulse Ox 98 97 97 Oxygen Delivery Method Room Air Room Air 06/12/24 20:45 06/12/24 21:00 06/12/24 22:07 Temperature Temperature Source Pulse Rate 72 79 Respiratory Rate 11 L 18 Respiratory Effort Blood Pressure 136/72 H 153/77 H 148/76 H Blood Pressure Mean 91 101 100 Pulse Ox 97 98 Oxygen Delivery Method Room Air Room Air 06/12/24 22:20 Temperature 98.3 F Temperature Source Pulse Rate 75 Respiratory Rate 18 Respiratory Effort Blood Pressure 147/76 H Blood Pressure Mean 99 Pulse Ox 96 Oxygen Delivery Method MDM MDM MDM Narrative Medical decision making narrative: 64-year-old male with past medical history of CVA, HLD, HTN, GERD presents for evaluation of chest pain. Differential diagnosis includes but is not limited to GERD, gastritis, pleurisy, electrolyte abnormality, pneumonia, CHF, anemia, arrhythmia, ACS, low risk for PE. Aspirin, morphine, Zofran, Pepcid ordered for symptoms. Chest pain is atypical in the sense that it is sharp and fluctuates in intensity. Worse with deep inspiration. Laboratory workup ordered including chest x-ray. EKG and chest x-ray reviewed see below. CBC without leukocytosis or anemia. Coagulation panel unremarkable. D-dimer unremarkable. CMP without significant electrolyte abnormality, TERA, or transaminitis. BNP unremarkable. Lipase unremarkable. Troponins are flat. On reevaluation, (more content not included)... Normal [facility] Eosinophil percentageOrdered By: Elvis Gonzalez on 06-12-2024 Eosinophils/100 WBC (Bld) 4.3 % 0-5 [facility] Erythrocyte distribution wid th (RBC) [Ratio]Ordered By: Elvis Gonzalez on 06-12-2024 Erythrocyte distribution width (RBC) [Entitic vol] 49.1 fL High 35.1-43.9 [facility] Erythrocyte distribution wid th ratioOrdered By: Elvis Gonzalez on 06-12-2024 Erythrocyte distribution width (RBC) [Ratio] 13.8 % 11.6-14.6 [facility] Estimated glomerular filtrat ion rate (GFR) AmericanOrdered By: Elvis Gonzalez on 06-12-2024 Estimated GFR (MDRD) Amer 101 mL/min >60 [facility] Comment on above: GFR Calc Glomerular filtration rate ( GFR) estimationOrdered By: Elvis Gonzalez on 06-12-2024 Estimated GFR (MDRD) Non-Af Amer 84 mL/min >60 [facility] Comment on above: Non- GFR Calc Glucose measurementOrdered B y: Elvis Gonzalez on 06-12-2024 Glucose [Mass/Vol] 88 mg/dL 74-[address] [facility] Hematocrit Auto (Bld) [Volum e fraction]Ordered By: Elvis Gonzalez on 06-12-2024 Hematocrit (Bld) [Volume fraction] 43.5 % 40-54 [facility] Hemoglobin measurementOrdere d By: Elvis Gonzalez on 06-12-2024 Hemoglobin (Bld) [Mass/Vol] 15.0 g/dL 13.0-16.5 [facility] Immature granulocytes/100 WB C Auto (Bld)Ordered By: Elvis Gonzalez on 06-12-2024 Immature granulocytes/100 WBC (Bld) 0.400 % 0.0-0.9 [facility] Comment on above: IG% - Immature Granu locytes (promyelocytes, myelocytes and metamyelocytes) > 1% indicates that a LEFT SHIFT is Present. International normalized rat io (INR) calculationOrdered By: Elvis Gonzalez on 06-12-2024 INR Coag (Bld) [Relative time] 0.9 {INR} [facility] L501.4020on 06-12-2024 TROPONIN-I HS 20 pg/mL Normal 3.0-78.0 [facility] Comment on above: Result Comment: Brie steve Note: New Test Units and Gender Specific Reference Ranges. For more information see Policy Stat Procedure [place] High Sensitivity Troponin (TNIH) and attachments. Performed By: #### L 501.4020 #### [facility] [address] [place], [address] L501.5425on 06-12-2024 TROPONIN-I HS 18 pg/mL Normal 3.0-78.0 [facility] Comment on above: Order Comment: 1Y Result Comment: Brie steve Note: New Test Units and Gender Specific Reference Ranges. For more information see Policy Stat Procedure [place] High Sensitivity Troponin (TNIH) and attachments. Performed By: #### L 501.5425, L501.2450, L500.4050 ####[facility] [address] [place], [address] Laboratory - Chemistry and C hemistry - challengeOrdered By: Elvis Gonzalez on 06-12-2024 AST [Catalytic activity/Vol] 15 U/L 15-37 [facility] Lipaseon 06-12-2024 Lipase [Catalytic activity/Vol] 21 U/L Normal 13-75 [facility] Comment on above: Order Comment: 1Y Result Comment: Brie steve note: LIPASE revised reference range effective 22. New Lipase methodology. Expected to produce lower values than the previous assay method. NEW Reference Range: 13 - 75 U/L Performed By: #### L 501.5425, L501.2450, L500.4050 ####[facility] [address] [place], [address] Lipase measurementOrdered By : Elvis Gonzalez on 06-12-2024 Lipase [Catalytic activity/Vol] 21 U/L 13-75 [facility] Comment on above: Please note:LIPASE r evised reference range effective 22. New Lipase methodology. Expected to produce lower values than the previous assay method. NEW Reference Range: 13 - 75 U/L Lymphocytes Auto (Unsp spec) [#/Vol]Ordered By: Elvis Gonzalez on 06-12-2024 Lymphocytes (Bld) [#/Vol] 2.06 10*3/uL 0.83-4.51 [facility] Lymphocytes/100 WBC Auto (Un sp spec)Ordered By: Elvis Gonzalez on 06-12-2024 Lymphocytes/100 WBC (Bld) 24.2 % 19-41 [facility] MCV (mean corpuscular volume ) determinationOrdered By: Elvis Gonzalez on 06-12-2024 MCV (RBC) [Entitic vol] 96.0 fL High 80-94 [facility] Mean corpuscular hemoglobin (MCH) determinationOrdered By: Elvis Gonzalez on 06-12-2024 MCH (RBC) [Entitic mass] 33.1 pg High 27.0-32.0 [facility] Mean corpuscular hemoglobin concentration (MCHC) determinationOrdered By: Elvis Lisa on 06-12-2024 MCHC (RBC) [Mass/Vol] 34.5 g/dL 32-36 [facility] Mean platelet volume determi nationOrdered By: Elvis Gonzalez on 06-12-2024 Platelet mean volume (Bld) [Entitic vol] 10.2 fL 6.2-12.0 [facility] Monocyte percentageOrdered B y: Elvis Gonzalez on 06-12-2024 Monocytes/100 WBC (Bld) 8.9 % 0-10 [facility] Neutrophil percentageOrdered By: Elvis Gonzalez on 06-12-2024 Neutrophils/100 WBC (Bld) 61.6 % 47-70 [facility] Nucleated red blood cell per centageOrdered By: Elvis Gonzalez on 06-12-2024 Nucleated RBC/100 WBC (Bld) [Ratio] 0 % 0-5 [facility] Partial Thromboplast Timeon 06-12-2024 aPTT Coag (Bld) [Time] 21.5 s Low 24.1-36.2 [facility] Comment on above: Performed By: #### L 300.4310, L300.3900, L100.0100, L300.8000, L503.6620 #### [facility] [address] [place], [place], [address] Platelet countOrdered By: Jed Gonzalez on 06-12-2024 Platelets (Bld) [#/Vol] 204 10*3/uL 150-450 [facility] Potassium measurementOrdered By: Elvis Gonzalez on 06-12-2024 Potassium [Moles/Vol] 3.7 mmol/L 3.5-5.1 [facility] Prothrombin Time w/INRon INR Coag (PPP) [Relative time] 0.9 {INR} Normal [facility] Comment on above: Performed By: #### L 300.4310, L300.3900, L100.0100, L300.8000, L503.6620 #### [facility] [address] [place], [address] PT Coag (PPP) [Time] 12.5 s Normal 11.7-14.9 [facility] Comment on above: Performed By: #### L 300.4310, L300.3900, L100.0100, L300.8000, L503.6620 #### [facility] [address] [place], [address] Prothrombin timeOrdered By: Elvis Gonzalez on 06-12-2024 PT Coag (PPP) [Time] 12.5 s 11.7-14.9 [facility] RBC Auto (Bld) [#/Vol]Ordere d By: Elvis Gonzalez on 06-12-2024 RBC (Bld) [#/Vol] 4.53 10*6/uL Low 4.6-6.2 [facility] Serum anion gap measurementO rdered By: Elvis Gonzalez on 06-12-2024 Anion gap [Moles/Vol] 4 mmol/L Low 5-15 [facility] Serum globulin measurementOr dered By: Elvis Gonzalez on 06-12-2024 Globulin (S) [Mass/Vol] 3.5 g/dL 2.2-4.2 [facility] Serum or plasma alanine best otransferase (ALT) measurementOrdered By: Elvis Gonzalez on 06-12-2024 ALT [Catalytic activity/Vol] 25 U/L 16-61 [facility] Serum or plasma albumin leonardo urement (mass/volume)Ordered By: Elvis Mack on 06-12-2024 Albumin [Mass/Vol] 3.4 g/dL 3.2-5.[address] [facility] Serum or plasma alkaline rhina sphatase measurementOrdered By: Elvis Gonzalez on 06-12-2024 ALP [Catalytic activity/Vol] 81 U/L 45-117 [facility] Serum or plasma calcium leonardo urement (mass/volume)Ordered By: Elvis Mack on 06-12-2024 Calcium [Mass/Vol] 8.9 mg/dL 8.5-10.[address] [facility] Serum or plasma creatinine m easurement (mass/volume)Ordered By: Elvis Mack on 06-12-2024 Creatinine [Mass/Vol] 0.95 mg/dL 0.70-1.30 [facility] Comment on above: The validity of the calculated GFR & GFRAA in patients over 70 years has not been determined. Clinical correlation is essential. Serum or plasma urea nitroge n measurement (mass/volume)Ordered By: Elvis Gonzalez on 06-12-2024 Urea nitrogen [Mass/Vol] 14 mg/dL 7-18 [facility] Sodium levelOrdered By: Agustin Gonzalez on 06-12-2024 Sodium [Moles/Vol] 139 mmol/L 136-[address] [facility] Total proteinOrdered By: Shaheen Gonzalez on 06-12-2024 Protein [Mass/Vol] 6.9 g/dL 6.4-8.[address] [facility] Troponin IOrdered By: Elvis RaymondFrederick on 06-12-2024 Troponin I High Sensitivity 20 pg/mL 3.0-78.0 [facility] Comment on above: Please Note: New Denice t Units and Gender Specific Reference Ranges. For more information see Policy Stat Procedure [place] High Sensitivity Troponin (TNIH) and attachments. White blood cell (WBC) count Ordered By: Elvis Gonzalez on 06-12-2024 WBC (Bld) [#/Vol] 8.5 10*3/uL 4.4-11.[address] [facility] aPTT Coag (PPP) [Time]Ordere d By: Elvis Gonzalez on 06-12-2024 aPTT Coag (Bld) [Time] 21.5 s Low 24.1-36.2 [facility] Comprehensive Metabolic Prof ilon 03-14-2024 Albumin [Mass/Vol] 3.9 g/dL Normal 3.2-5.[address] [facility] Comment on above: Performed By: #### L 500.4050 #### [facility] [address] [place], [place], [id number] Albumin/Globulin [Mass ratio] 1.2 {ratio} Normal 0.9-2.4 [facility] Comment on above: Performed By: #### L 500.4050 #### [facility] [address] [place], [address] ALK P 83 U/L Normal 45-117 [facility] Comment on above: Performed By: #### L 500.4050 #### [facility] [address] [place], [address] ALT [Catalytic activity/Vol] 23 U/L Normal 16-61 [facility] Comment on above: Performed By: #### L 500.4050 #### [facility] [address] [place], [address] AST [Catalytic activity/Vol] 13 U/L Low 15-37 [facility] Comment on above: Performed By: #### L 500.4050 #### [facility] [address] [place], [address] Bilirubin [Mass/Vol] 0.50 mg/dL Normal 0.20-1.00 [facility] Comment on above: Result Comment: For patients on eltrombopag therapy, use of Dimension [place] TBIL is not recommended. Performed By: #### L 500.4050 #### [facility] [address] [place], [address] BUN/CRE 15.3 RATIO Normal 10-20 [facility] Comment on above: Performed By: #### L 500.4050 #### [facility] [address] [place], [address] CA,Total 9.1 mg/dL Normal 8.5-10.1 [facility] Comment on above: Performed By: #### L 500.4050 #### [facility] [address] [place], [address] Chloride [Moles/Vol] 101 mmol/L Normal 98-107 [facility] Comment on above: Performed By: #### L 500.4050 #### [facility] [address] [place], [address] CO2 [Moles/Vol] 29.0 mmol/L Normal 21.0-32.0 [facility] Comment on above: Performed By: #### L 500.4050 #### [facility] [address] [place], [address] Creatinine [Mass/Vol] 0.92 mg/dL Normal 0.70-1.30 [facility] Comment on above: Result Comment: The validity of the calculated GFR GFRAA in patients over 70 years has not been determined. Clinical correlation is essential. Performed By: #### L 500.4050 #### [facility] [address] [place], [address] EST GFR - AA 106 mL/min Normal >60 [facility] Comment on above: Result Comment: Afri can [place] GFR Calc Performed By: #### L 500.4050 #### [facility] [facility] [address] [place], [address] GAP 7 Normal 5-15 [facility] Comment on above: Performed By: #### L 500.4050 #### [facility] [address] [place], [address] GFR/1.73 sq M.predicted among non-blacks MDRD (S/P/Bld) [Vol rate/Area] 88 mL/min/{1.73_m2} Normal >60 [facility] Comment on above: Result Comment: Non- GFR Calc Performed By: #### L 500.4050 #### [facility] [address] [place], [address] Globulin (S) [Mass/Vol] 3.2 g/dL Normal 2.2-4.2 [facility] Comment on above: Performed By: #### L 500.4050 #### [facility] [address] [place], [address] Glucose [Mass/Vol] 101 mg/dL Normal 74-[address] [facility] Comment on above: Result Comment: Fast ing Glucose result from 100 to 125 mg/dL suggests IMPAIRED HOMEOSTASIS per A.D.A. criteria. Performed By: #### L 500.4050 #### [facility] [address] [place], [address] Potassium [Moles/Vol] 3.6 mmol/L Normal 3.5-5.1 [facility] Comment on above: Performed By: #### L 500.4050 #### [facility] [address] [place], [address] Sodium [Moles/Vol] 137 mmol/L Normal 136-[address] [facility] Comment on above: Performed By: #### L 500.4050 #### [facility] [address] [place], [address] T PROT 7.1 g/dL Normal 6.4-8.2 [facility] Comment on above: Performed By: #### L 500.4050 #### [facility] [address] [place], [address] Urea nitrogen [Mass/Vol] 14 mg/dL Normal 7-18 [facility] Comment on above: Performed By: #### L 500.4050 #### [facility] [address] [place], [address] CBC W/Diff, Automatedon 10- 0 Absolute Lymph 1.85 X10 3/uL Normal 0.83-4.51 [facility] Comment on above: Order Comment: Order Date: 02/25/24Order Info: [id number] - CBCD Performed By: #### L 500.4050, L100.0100, L500.4100, L506.1000 ####[facility] [address] [place], [address] Absolute Neut 4.3 X10 3/uL Normal 2.0-7.7 [facility] Comment on above: Order Comment: Order Date: 02/25/24Order Info: [id number] - CBCD Performed By: #### L 500.4050, L100.0100, L500.4100, L506.1000 ####[facility] [address] [place], [address] Basophils/100 WBC (Bld) 0.7 % Normal 0-1 [facility] Comment on above: Order Comment: Order Date: 02/25/24Order Info: [id number] - CBCD Performed By: #### L 500.4050, L100.0100, L500.4100, L506.1000 ####[facility] [address] [place], [address] Eosinophils/100 WBC (Bld) 4.7 % Normal 0-5 [facility] Comment on above: Order Comment: Order Date: 02/25/24Order Info: [id number] - CBCD Performed By: #### L 500.4050, L100.0100, L500.4100, L506.1000 ####[facility] [address] [place], [address] Erythrocyte distribution width (RBC) [Ratio] 13.4 % Normal 11.6-14.6 [facility] Comment on above: Order Comment: Order Date: 02/25/24Order Info: [id number]- - CBCD Performed By: #### L 500.4050, L100.0100, L500.4100, L506.1000 ####[facility] [address] [place], [address] Hematocrit (Bld) [Volume fraction] 46.4 % Normal 40-54 [facility] Comment on above: Order Comment: Order Date: 02/25/24Order Info: [id number] - CBCD Performed By: #### L 500.4050, L100.0100, L500.4100, L506.1000 ####[facility] [address] [place], [address] Hemoglobin (Bld) [Mass/Vol] 15.3 g/dL Normal 13.0-16.5 [facility] Comment on above: Order Comment: Order Date: 02/25/24Order Info: [id number] - CBCD Performed By: #### L 500.4050, L100.0100, L500.4100, L506.1000 ####[facility] [address] [place], [address] IG% 0.300 Normal 0.0-0.9 [facility] Comment on above: Order Comment: Order Date: 02/25/24Order Info: [id number]- - CBCD Result Comment: IG% - Immature Granulocytes (promyelocytes, myelocytes and metamyelocytes) > 1% indicates that a LEFT SHIFT is Present. Performed By: #### L 500.4050, L100.0100, L500.4100, L506.1000 ####[facility] [address] [place], [address] Lymphocytes/100 WBC (Bld) 25.7 % Normal 19-41 [facility] Comment on above: Order Comment: Order Date: 02/25/24Order Info: [id number]- - CBCD Performed By: #### L 500.4050, L100.0100, L500.4100, L506.1000 ####[facility] [address] [place], [address] MCH (RBC) [Entitic mass] 32.3 pg High 27.0-32.0 [facility] Comment on above: Order Comment: Order Date: 02/25/24Order Info: [id number]- - CBCD Performed By: #### L 500.4050, L100.0100, L500.4100, L506.1000 ####[facility] [address] [place], [address] MCHC (RBC) [Mass/Vol] 33.0 g/dL Normal 32-36 [facility] Comment on above: Order Comment: Order Date: 02/25/24Order Info: [id number]- - CBCD Performed By: #### L 500.4050, L100.0100, L500.4100, L506.1000 ####[facility] [address] [place], [address] MCV (RBC) [Entitic vol] 98.1 fL High 80-94 [facility] Comment on above: Order Comment: Order Date: 02/25/24Order Info: [id number] - CBCD Performed By: #### L 500.4050, L100.0100, L500.4100, L506.1000 ####[facility] [address] [place], [address] Monocytes/100 WBC (Bld) 9.0 % Normal 0-10 [facility] Comment on above: Order Comment: Order Date: 02/25/24Order Info: [id number]- - CBCD Performed By: #### L 500.4050, L100.0100, L500.4100, L506.1000 ####[facility] [address] [place], [address] Neutrophils/100 WBC (Bld) 59.6 % Normal 47-70 [facility] Comment on above: Order Comment: Order Date: 02/25/24Order Info: [id number]- - CBCD Performed By: #### L 500.4050, L100.0100, L500.4100, L506.1000 ####[facility] [address] [place], [address] Nucleated RBC (Bld) [#/Vol] 0 10*3/uL Normal 0-5 [facility] Comment on above: Order Comment: Order Date: 02/25/24Order Info: [id number] - CBCD Performed By: #### L 500.4050, L100.0100, L500.4100, L506.1000 ####[facility] [address] [place], [address] Platelet mean volume (Bld) [Entitic vol] 9.8 fL Normal 6.2-12.0 [facility] Comment on above: Order Comment: Order Date: 02/25/24Order Info: [id number] - CBCD Performed By: #### L 500.4050, L100.0100, L500.4100, L506.1000 ####[facility] [address] [place], [address] Platelets (Bld) [#/Vol] 307 10*3/uL Normal 150-450 [facility] Comment on above: Order Comment: Order Date: 02/25/24Order Info: [id number] - CBCD Performed By: #### L 500.4050, L100.0100, L500.4100, L506.1000 ####[facility] [address] [place], [address] RBC (Bld) [#/Vol] 4.73 10*6/uL Normal 4.6-6.2 [facility] Comment on above: Order Comment: Order Date: 02/25/24Order Info: [id number]- - CBCD Performed By: #### L 500.4050, L100.0100, L500.4100, L506.1000 ####[facility] [address] [place], [address] RDW SD 49.1 fl High 35.1-43.9 [facility] Comment on above: Order Comment: Order Date: 02/25/24Order Info: [id number] - CBCD Performed By: #### L 500.4050, L100.0100, L500.4100, L506.1000 ####[facility] [address] [place], [address] WBC (Bld) [#/Vol] 7.2 10*3/uL Normal 4.4-11.[address] [facility] Comment on above: Order Comment: Order Date: 02/25/24Order Info: [id number] - CBCD Performed By: #### L 500.4050, L100.0100, L500.4100, L506.1000 ####[facility] [address] [place], [address] Comprehensive Metabolic Prof ilon 02-25-2024 Albumin [Mass/Vol] 3.6 g/dL Normal 3.2-5.[address] [facility] Comment on above: Order Comment: Order Date: 02/25/24Order Info: [id number] - CMPOrder Info: [id number] - LIPID Performed By: #### L 500.4050, L100.0100, L500.4100, L506.1000 ####[facility] [address] [place], [address] Albumin/Globulin [Mass ratio] 1.1 {ratio} Normal 0.9-2.4 [facility] Comment on above: Order Comment: Order Date: 02/25/24Order Info: [id number] - CMPOrder Info: [id number] - LIPID Performed By: #### L 500.4050, L100.0100, L500.4100, L506.1000 ####[facility] [address] [place], [address] ALK P 79 U/L Normal 45-117 [facility] Comment on above: Order Comment: Order Date: 02/25/24Order Info: [id number] - CMPOrder Info: [id number] - LIPID Performed By: #### L 500.4050, L100.0100, L500.4100, L506.1000 ####[facility] [address] [place], [address] ALT [Catalytic activity/Vol] 21 U/L Normal 16-61 [facility] Comment on above: Order Comment: Order Date: 02/25/24Order Info: [id number] - CMPOrder Info: [id number] - LIPID Performed By: #### L 500.4050, L100.0100, L500.4100, L506.1000 ####[facility] [address] [place], [address] AST [Catalytic activity/Vol] 15 U/L Normal 15-37 [facility] Comment on above: Order Comment: Order Date: 02/25/24Order Info: [id number] - CMPOrder Info: [id number] - LIPID Performed By: #### L 500.4050, L100.0100, L500.4100, L506.1000 ####[facility] [address] [place], [address] Bilirubin [Mass/Vol] 0.30 mg/dL Normal 0.20-1.00 [facility] Comment on above: Order Comment: Order Date: 02/25/24Order Info: 07-1 - CMPOrder Info: [id number] - LIPID Result Comment: For patients on eltrombopag therapy, use of Dimension [place] TBIL is not recommended. Performed By: #### L 500.4050, L100.0100, L500.4100, L506.1000 ####[facility] [address] [place], [address] BUN/CRE 22.5 RATIO High 10-20 [facility] Comment on above: Order Comment: Order Date: 02/25/24Order Info: [id number] - CMPOrder Info: [id number] - LIPID Performed By: #### L 500.4050, L100.0100, L500.4100, L506.1000 ####[facility] [address] [place], [address] CA,Total 8.9 mg/dL Normal 8.5-10.1 [facility] Comment on above: Order Comment: Order Date: 02/25/24Order Info: [id number] - CMPOrder Info: [id number] - LIPID Performed By: #### L 500.4050, L100.0100, L500.4100, L506.1000 ####[facility] [address] [place], [address] Chloride [Moles/Vol] 103 mmol/L Normal 98-107 [facility] Comment on above: Order Comment: Order Date: 02/25/24Order Info: [id number] - CMPOrder Info: [id number] - LIPID Performed By: #### L 500.4050, L100.0100, L500.4100, L506.1000 ####[facility] [address] [place], [address] CO2 [Moles/Vol] 30.0 mmol/L Normal 21.0-32.0 [facility] Comment on above: Order Comment: Order Date: 02/25/24Order Info: [id number] - CMPOrder Info: [id number] - LIPID Performed By: #### L 500.4050, L100.0100, L500.4100, L506.1000 ####[facility] [address] [place], [address] Creatinine [Mass/Vol] 0.76 mg/dL Normal 0.70-1.30 [facility] Comment on above: Order Comment: Order Date: 02/25/24Order Info: [id number] - CMPOrder Info: [id number] - LIPID Result Comment: The validity of the calculated GFR GFRAA in patients over 70 years has not been determined. Clinical correlation is essential. Performed By: #### L 500.4050, L100.0100, L500.4100, L506.1000 ####[facility] [address] [place], [address] EST GFR - AA 133 mL/min Normal >60 [facility] Comment on above: Order Comment: Order Date: 02/25/24Order Info: [id number] - CMPOrder Info: [id number] - LIPID Result Comment: Afri can [place] GFR Calc Performed By: #### L 500.4050, L100.0100, L500.4100, L506.1000 ####[facility] [address] [place], [address] GAP 5 Normal 5-15 [facility] Comment on above: Order Comment: Order Date: 02/25/24Order Info: [id number]- - CMPOrder Info: [id number] - LIPID Performed By: #### L 500.4050, L100.0100, L500.4100, L506.1000 ####[facility] [address] [place], [address] GFR/1.73 sq M.predicted among non-blacks MDRD (S/P/Bld) [Vol rate/Area] 110 mL/min/{1.73_m2} Normal >60 [facility] Comment on above: Order Comment: Order Date: 02/25/24Order Info: 07-1 - CMPOrder Info: [id number] - LIPID Result Comment: Non- GFR Calc Performed By: #### L 500.4050, L100.0100, L500.4100, L506.1000 ####[facility] [address] [place], [address] Globulin (S) [Mass/Vol] 3.3 g/dL Normal 2.2-4.2 [facility] Comment on above: Order Comment: Order Date: 02/25/24Order Info: [id number]- - CMPOrder Info: [id number] - LIPID Performed By: #### L 500.4050, L100.0100, L500.4100, L506.1000 ####[facility] [address] [place], [address] Glucose [Mass/Vol] 84 mg/dL Normal 74-[address] [facility] Comment on above: Order Comment: Order Date: 02/25/24Order Info: [id number] - CMPOrder Info: [id number] - LIPID Performed By: #### L 500.4050, L100.0100, L500.4100, L506.1000 ####[facility] [address] [place], [address] Potassium [Moles/Vol] 3.4 mmol/L Low 3.5-5.1 [facility] Comment on above: Order Comment: Order Date: 02/25/24Order Info: [id number] - CMPOrder Info: [id number] - LIPID Performed By: #### L 500.4050, L100.0100, L500.4100, L506.1000 ####[facility] [address] [place], [address] Sodium [Moles/Vol] 138 mmol/L Normal 136-[address] [facility] Comment on above: Order Comment: Order Date: 02/25/24Order Info: 07- - CMPOrder Info: [id number] - LIPID Performed By: #### L 500.4050, L100.0100, L500.4100, L506.1000 ####[facility] [address] [place], [address] T PROT 6.9 g/dL Normal 6.4-8.2 [facility] Comment on above: Order Comment: Order Date: 02/25/24Order Info: [id number] - CMPOrder Info: [id number] - LIPID Performed By: #### L 500.4050, L100.0100, L500.4100, L506.1000 ####[facility] [address] [place], [address] Urea nitrogen [Mass/Vol] 17 mg/dL Normal 7-18 [facility] Comment on above: Order Comment: Order Date: 02/25/24Order Info: [id number]- - CMPOrder Info: [id number] - LIPID Performed By: #### L 500.4050, L100.0100, L500.4100, L506.1000 ####[facility] [address] [place], [address] Lipid Profileon 02-25-2024 Cholesterol [Mass/Vol] 138 mg/dL Normal 200 [facility] Comment on above: Order Comment: Order Date: 02/25/24Order Info: [id number]- - CMPOrder Info: [id number] - LIPID Result Comment: <200 mg/dL Desirable 200-240 mg/dL Borderline >240 mg/dL High Risk Performed By: #### L 500.4050, L100.0100, L500.4100, L506.1000 ####[facility] [address] [place], [address] Cholesterol in HDL [Mass/Vol] 43 mg/dL Normal [facility] Comment on above: Order Comment: Order Date: 02/25/24Order Info: [id number] - CMPOrder Info: [id number] - LIPID Result Comment: The drugs N-Acetylcysteine and Metamizole may falsely depress this assay. Reference Range HDL <40 mg/dL Low HDL Cholesterol HDL >or= 60 mg/dL High HDL Cholesterol Performed By: #### L 500.4050, L100.0100, L500.4100, L506.1000 ####[facility] [address] [place], [address] Cholesterol in LDL [Mass/Vol] 70 mg/dL Normal 0-130 [facility] Comment on above: Order Comment: Order Date: 02/25/24Order Info: [id number] - CMPOrder Info: [id number] - LIPID Performed By: #### L 500.4050, L100.0100, L500.4100, L506.1000 ####[facility] [address] [place], [address] Cholesterol in VLDL [Mass/Vol] 25 mg/dL Normal 5-40 [facility] Comment on above: Order Comment: Order Date: 02/25/24Order Info: [id number] - CMPOrder Info: [id number] - LIPID Performed By: #### L 500.4050, L100.0100, L500.4100, L506.1000 ####[facility] [address] [place], [address] Triglyceride [Mass/Vol] 127 mg/dL Normal [facility] Comment on above: Order Comment: Order Date: 02/25/24Order Info: [id number] - CMPOrder Info: [id number] - LIPID Result Comment: The drugs N-Acetylcysteine and Metamizole may falsely depress this assay. Serum Triglycerides Reference Interval Normal <150 mg/dL Borderline high 150 - 199 mg/dL High 200 - 499 mg/dL Very High > or = 500 mg/dL Performed By: #### L 500.4050, L100.0100, L500.4100, L506.1000 ####[facility] [address] [place], [address] Vitamin D,25 Hydroxyon 02-24 Vitamin D 25-OH 35.7 ng/mL Normal [facility] Comment on above: Order Comment: Order Date: 02/25/24Order Info: [id number] - [id number] Result Comment: Quin min D 25(OH) Status Range Deficiency <20 ng/mL (50nmol/L) Insufficiency 20 - 30 ng/mL (50 - 75 nmol/L) Sufficiency 30 - 100 ng/mL (75 - 250 nmol/L) Toxicity >100 ng/mL (>250 nmol/L) Performed By: #### L 500.4050, L100.0100, L500.4100, L506.1000 ####[facility] [address] [place], [address] Absolute lymphocyte countOrd ered By: Dulce Phillips on 02-26-2023 Lymphocytes Auto (Unsp spec) [#/Vol] 1.48 10*3/uL 0.83-4.51 [facility] Basophil percentageOrdered B y: Dulce Phillips on 02-26-2023 Basophils/100 WBC (Bld) 0.9 % 0-1 [facility] Bilirubin [Mass/Vol] 0.40 mg/dL 0.20-1.00 [facility] Comment on above: For patients on eltr ombopag therapy, use of Dimension [place] TBIL is not recommended. Chloride [Moles/Vol] 105 mmol/L 98-107 [facility] Eosinophils/100 WBC (Bld) 4.9 % 0-5 [facility] Glucose [Mass/Vol] 97 mg/dL 74-[address] [facility] Neutrophils (Bld) [#/Vol] 4.1 10*3/uL 2.0-7.7 [facility] Neutrophils/100 WBC (Bld) 63.0 % 47-70 [facility] Potassium [Moles/Vol] 3.3 mmol/L 3.5-5.1 [facility] Protein [Mass/Vol] 7.1 g/dL 6.4-8.[address] [facility] Sodium [Moles/Vol] 139 mmol/L 136-[address] [facility] WBC (Bld) [#/Vol] 6.5 10*3/uL 4.4-11.[address] [facility] Blood erythrocytes count (nu mber/volume)Ordered By: Dulce Phillips on 02-26-2023 RBC (Bld) [#/Vol] 4.72 10*6/uL 4.6-6.2 [facility] Blood hemoglobin measurement (mass/volume)Ordered By: Dulce Phillisp on 02-26-2023 Hemoglobin (Bld) [Mass/Vol] 15.4 g/dL 13.0-16.5 [facility] Blood lymphocytes/100 leukoc ytesOrdered By: Dulce Phillips on 02-26-2023 Lymphocytes/100 WBC (Bld) 22.8 % 19-41 [facility] Blood monocytes/100 leukocyt esOrdered By: Dulce Phillips on 02-26-2023 Monocytes/100 WBC (Bld) 7.9 % 0-10 [facility] Blood platelet mean volumeOr dered By: Dulce Phillips on 02-26-2023 Platelet mean volume (Bld) [Entitic vol] 9.8 fL 6.2-12.0 [facility] Determination of erythrocyte mean corpuscular volume (MCV)Ordered By: Dulce Phillips on 02-26-2023 MCV (RBC) [Entitic vol] 100.0 fL 80-94 [facility] Hematocrit Auto (Bld) [Volum e fraction]Ordered By: Dulce Phillips on 02-26-2023 Hematocrit (Bld) [Volume fraction] 47.2 % 40-54 [facility] - Chemistry and C hemistry - challengeOrdered By: Dulce Phillips on 02-26-2023 ALP [Catalytic activity/Vol] 105 U/L 45-117 [facility] ALT [Catalytic activity/Vol] 43 U/L 16-61 [facility] CO2 [Moles/Vol] 28.0 mmol/L 21.0-32.0 [facility] Cobalamin (Vitamin B12) [Mass/Vol] 799 pg/mL 211-911 [facility] Globulin (S) [Mass/Vol] 3.6 g/dL 2.2-4.2 [facility] Magnesium [Mass/Vol] 2.5 mg/dL 1.6-2.6 [facility] Urea nitrogen/Creatinine [Mass ratio] 19.5 mg/mg 10-20 [facility] - Hematology and Cell countsOrdered By: Dulce Phillips on 02-26-2023 Erythrocyte distribution width (RBC) [Entitic vol] 50.6 fL 35.1-43.9 [facility] Erythrocyte distribution width (RBC) [Ratio] 13.7 % 11.6-14.6 [facility] Immature granulocytes/100 WBC (Bld) 0.500 % 0.0-0.9 [facility] Comment on above: IG% - Immature Granu locytes (promyelocytes, myelocytes and metamyelocytes) > 1% indicates that a LEFT SHIFT is Present. MCH (RBC) [Entitic mass] 32.6 pg 27.0-32.0 [facility] Nucleated RBC/100 WBC (Bld) [Ratio] 0 % 0-5 [facility] MCHC Auto (RBC) [Mass/Vol]Or dered By: Dulce Phillips on 02-26-2023 MCHC (RBC) [Mass/Vol] 32.6 g/dL 32-36 [facility] No Panel InformationOrdered By: Dulce Phillips on 02-26-2023 Estimated GFR (MDRD) Amer 121 mL/min >60 [facility] Comment on above: GFR Calc Estimated GFR (MDRD) Non-Af Amer 100 mL/min >60 [facility] Comment on above: Non- GFR Calc Thyroid Stimulating Hormone (TSH) 1.99 uIU/mL 0.358-3.74 [facility] Vitamin D 25-Hydroxy 31.7 ng/mL [facility] Comment on above: Vitamin D 25(OH) Sta tus Range Deficiency <20 ng/mL (50nmol/L) Insufficiency 20 - 30 ng/mL (50 - 75 nmol/L) Sufficiency 30 - 100 ng/mL (75 - 250 nmol/L) Toxicity >100 ng/mL (>250 nmol/L) Platelets bldOrdered By: Haley Phillips on 02-26-2023 Platelets (Bld) [#/Vol] 338 10*3/uL 150-450 [facility] Serum or plasma albumin leonardo urement (mass/volume)Ordered By: Dulce Phillips on 02-26-2023 Albumin [Mass/Vol] 3.5 g/dL 3.2-5.[address] [facility] Serum or plasma albumin/glob ulin mass ratioOrdered By: Dulce Phillips on 02-26-2023 Albumin/Globulin [Mass ratio] 1.0 {ratio} 0.9-2.4 [facility] Serum or plasma calcium leonardo urement (mass/volume)Ordered By: Dulce Phillips on 02-26-2023 Calcium [Mass/Vol] 8.5 mg/dL 8.5-10.[address] [facility] Serum or plasma creatinine m easurement (mass/volume)Ordered By: Dulce Phillips on 02-26-2023 Creatinine [Mass/Vol] 0.82 mg/dL 0.70-1.30 [facility] Comment on above: The validity of the calculated GFR & GFRAA in patients over 70 years has not been determined. Clinical correlation is essential. Serum or plasma ferritin fozia surement (mass/volume)Ordered By: Dulce Phillips on 02-26-2023 Ferritin [Mass/Vol] 159 ng/mL 26-388 [facility] Serum or plasma folate measu rement (mass/volume)Ordered By: Dulce Phillips on 02-26-2023 Folate [Mass/Vol] 10.10 ng/mL 3.1-55.[address] [facility] Serum or plasma urea nitroge n measurement (mass/volume)Ordered By: Dulce Phillips on 02-26-2023 Urea nitrogen [Mass/Vol] 16 mg/dL 7-18 [facility] Thin prep Papanicolaou smear with manual screeningOrdered By: Dulce Phillips on 02-26-2023 Thin prep Papanicolaou smear with manual screening 17 U/L 15-37 [facility] Thin prep Papanicolaou smear with manual screening 6 5-15 [facility] Whole blood hemoglobin A1c/t otal hemoglobin ratio (mass fraction)Ordered By: Dulce Alan on 02-26-2023 HbA1c (Bld) [Mass fraction] 5.4 % 3.8-5.6 [facility] Comment on above: Normal < 5.7 % Predi abetic 5.7 - 6.4 % Diabetic >or= 6.5 % Please note range changes. Absolute lymphocyte countOrd ered By: Charan Michelle on 11-27-2022 Lymphocytes Auto (Unsp spec) [#/Vol] 1.36 10*3/uL 0.83-4.51 [facility] Basophil percentageOrdered B y: Charan Martinez on 11-27-2022 Basophil percentage 2.6 mg/dL 2.5-4.9 [facility] Basophils/100 WBC (Bld) 0.8 % 0-1 [facility] Bilirubin [Mass/Vol] 0.50 mg/dL 0.20-1.00 [facility] Comment on above: For patients on eltr ombopag therapy, use of Dimension [place] TBIL is not recommended. Chloride [Moles/Vol] 111 mmol/L 98-107 [facility] Cholesterol [Mass/Vol] 201 mg/dL <200 [facility] Comment on above: <200 mg/dL Desirable 200-240 mg/dL Borderline >240 mg/dL High Risk Eosinophils/100 WBC (Bld) 3.7 % 0-5 [facility] Glucose [Mass/Vol] 93 mg/dL 74-[address] [facility] Neutrophils (Bld) [#/Vol] 4.3 10*3/uL 2.0-7.7 [facility] Neutrophils/100 WBC (Bld) 66.4 % 47-70 [facility] Potassium [Moles/Vol] 3.7 mmol/L 3.5-5.1 [facility] Protein [Mass/Vol] 5.6 g/dL 6.4-8.[address] [facility] Sodium [Moles/Vol] 139 mmol/L 136-[address] [facility] Triglyceride [Mass/Vol] 116 mg/dL <199 [facility] Comment on above: The drugs N-Acetylcy steine and Metamizole may falsely depress this assay.Serum Triglycerides Reference Interval Normal <150 mg/dL Borderline high 150 - 199 mg/dL High 200 - 499 mg/dL Very High > or = 500 mg/dL WBC (Bld) [#/Vol] 6.5 10*3/uL 4.4-11.[address] [facility] Blood erythrocytes count (nu mber/volume)Ordered By: Charan Martinez on 11-27-2022 RBC (Bld) [#/Vol] 4.30 10*6/uL 4.6-6.2 [facility] Blood hemoglobin measurement (mass/volume)Ordered By: Charan Martinez on 11-27-2022 Hemoglobin (Bld) [Mass/Vol] 14.1 g/dL 13.0-16.5 [facility] Blood lymphocytes/100 leukoc ytesOrdered By: Charan Martinez on 11-27-2022 Lymphocytes/100 WBC (Bld) 20.8 % 19-41 [facility] Blood monocytes/100 leukocyt esOrdered By: Charan Martinez on 11-27-2022 Monocytes/100 WBC (Bld) 8.0 % 0-10 [facility] Blood platelet mean volumeOr dered By: Charan Martinez on 11-27-2022 Platelet mean volume (Bld) [Entitic vol] 9.6 fL 6.2-12.0 [facility] Determination of erythrocyte mean corpuscular volume (MCV)Ordered By: Charan Martinez on 11-27-2022 MCV (RBC) [Entitic vol] 96.7 fL 80-94 [facility] Hematocrit Auto (Bld) [Volum e fraction]Ordered By: Charan Martinez on 11-27-2022 Hematocrit (Bld) [Volume fraction] 41.6 % 40-54 [facility] Laboratory - Chemistry and C hemistry - challengeOrdered By: Charan Martinez on 11-27-2022 ALP [Catalytic activity/Vol] 59 U/L 45-117 [facility] ALT [Catalytic activity/Vol] 16 U/L 16-61 [facility] CO2 [Moles/Vol] 25.0 mmol/L 21.0-32.0 [facility] Globulin (S) [Mass/Vol] 2.8 g/dL 2.2-4.2 [facility] Magnesium [Mass/Vol] 2.1 mg/dL 1.6-2.6 [facility] Urea nitrogen/Creatinine [Mass ratio] 19.4 mg/mg 10-20 [facility] Laboratory - Hematology and Cell countsOrdered By: Charan Martinez on 11-27-2022 Erythrocyte distribution width (RBC) [Entitic vol] 48.3 fL 35.1-43.9 [facility] Erythrocyte distribution width (RBC) [Ratio] 13.5 % 11.6-14.6 [facility] Immature granulocytes/100 WBC (Bld) 0.300 % 0.0-0.9 [facility] Comment on above: IG% - Immature Granu locytes (promyelocytes, myelocytes and metamyelocytes) > 1% indicates that a LEFT SHIFT is Present. MCH (RBC) [Entitic mass] 32.8 pg 27.0-32.0 [facility] Nucleated RBC/100 WBC (Bld) [Ratio] 0 % 0-5 [facility] MCHC Auto (RBC) [Mass/Vol]Or dered By: Charan Martinez on 11-27-2022 MCHC (RBC) [Mass/Vol] 33.9 g/dL 32-36 [facility] No Panel InformationOrdered By: Charan Martinez on 11-27-2022 Estimated Creatinine Clearance Calc 83.01 ml/min [facility] Estimated GFR (MDRD) Amer 113 mL/min >60 [facility] Comment on above: GFR Calc Estimated GFR (MDRD) Non-Af Amer 93 mL/min >60 [facility] Comment on above: Non- GFR Calc Thyroid Stimulating Hormone (TSH) 2.62 uIU/mL 0.358-3.74 [facility] Platelets bldOrdered By: Peter Martinez on 11-27-2022 Platelets (Bld) [#/Vol] 239 10*3/uL 150-450 [facility] Serum or plasma albumin leonardo urement (mass/volume)Ordered By: Charan Martinez on 11-27-2022 Albumin [Mass/Vol] 2.8 g/dL 3.2-5.[address] [facility] Serum or plasma albumin/glob ulin mass ratioOrdered By: Charan Martinez on 11-27-2022 Albumin/Globulin [Mass ratio] 1.0 {ratio} 0.9-2.4 [facility] Serum or plasma calcium leonardo urement (mass/volume)Ordered By: Charan Martinez on 11-27-2022 Calcium [Mass/Vol] 8.1 mg/dL 8.5-10.[address] [facility] Serum or plasma cholesterol in HDL measurement (mass/volume)Ordered By: Charan Martinez on 11-27-2022 Cholesterol in HDL [Mass/Vol] 36 mg/dL >40 [facility] Comment on above: The drugs N-Acetylcy steine and Metamizole may falsely depress this assay. Reference Range HDL <40 mg/dL Low HDL Cholesterol HDL >or= 60 mg/dL High HDL Cholesterol Serum or plasma cholesterol in VLDL measurement (mass/volume)Ordered By: Charan Martinez on 11-27-2022 Cholesterol in VLDL [Mass/Vol] 23 mg/dL 5-40 [facility] Serum or plasma creatinine m easurement (mass/volume)Ordered By: Charan Martinez on 11-27-2022 Creatinine [Mass/Vol] 0.88 mg/dL 0.70-1.30 [facility] Comment on above: The validity of the calculated GFR & GFRAA in patients over 70 years has not been determined. Clinical correlation is essential. Serum or plasma low density lipoprotein (LDL) cholesterol measurement (mass/volume)Ordered By: Charan Martinez on 11-27-2022 Cholesterol in LDL [Mass/Vol] 142 mg/dL 0-130 [facility] Serum or plasma urea nitroge n measurement (mass/volume)Ordered By: Charan Martienz on 11-27-2022 Urea nitrogen [Mass/Vol] 17 mg/dL 7-18 [facility] Thin prep Papanicolaou smear with manual screeningOrdered By: Charan Martinez on 11-27-2022 Thin prep Papanicolaou smear with manual screening 9 U/L 15-37 [facility] Thin prep Papanicolaou smear with manual screening 3 5-15 [facility] Whole blood hemoglobin A1c/t otal hemoglobin ratio (mass fraction)Ordered By: Chraan Martinez on 11-27-2022 HbA1c (Bld) [Mass fraction] 5.4 % 3.8-5.6 [facility] Comment on above: Normal < 5.7 % Predi abetic 5.7 - 6.4 % Diabetic >or= 6.5 % Please note range changes. Blood platelet adequacy dete ction by light microscopyOrdered By: Noé Vasquez on 11-26-2022 Platelets LM Ql (Bld) ADEQUATE ADEQ [facility] INR in Blood by Coagulation assayOrdered By: Noé Vasquez on 11-26-2022 INR Coag (Bld) [Relative time] 1.1 {INR} [facility] Laboratory - CoagulationOrde red By: Noé Vasquez on 11-26-2022 aPTT Coag (Bld) [Time] 28.9 s 24.1-36.2 [facility] PT Coag (PPP) [Time] 14.0 s 11.7-14.9 [facility] No Panel InformationOrdered By: Noé Vasquez on 11-26-2022 Troponin I High Sensitivity 7 pg/mL 3.0-78.0 [facility] Comment on above: Please Note: New Denice t Units and Gender Specific Reference Ranges. For more information see Policy Stat Procedure [place] High Sensitivity Troponin (TNIH) and attachments. Vital Signs Date Time Vital Sign Value Performing Clinician Facility 06-12-2024 22:20-0500 Body temperature 98.3 [degF] Anne Arellano MD Work Phone: [facility] 06-12-2024 22:20-0500 Diastolic blood pressure 76 mm[Hg] Anne Arellano MD Work Phone: [facility] 06-12-2024 22:20-0500 Heart rate 75 /min Anne Arellano MD Work Phone: [facility] 06-12-2024 22:20-0500 Respiratory rate 18 /min Anne Arellano MD Work Phone: [facility] 06-12-2024 22:20-0500 SaO2% (BldA) [Mass fraction] 96 % Anne Arellano MD Work Phone: [facility] 06-12-2024 22:20-0500 Systolic blood pressure 147 mm[Hg] Anne Arellano MD Work Phone: [facility] 06-12-2024 19:31-0500 Body mass index (BMI) [Ratio] 24.7 kg/m2 Anne Arellano MD Work Phone: [facility] 06-12-2024 19:31-0500 Body weight 76 kg Anne Arellano MD Work Phone: [facility] 06-12-2024 18:32-0500 Body height 175.26 cm Anne Arellano MD Work Phone: [facility] 06-01-2023 10:34-0500 Diastolic Blood Pressure Non-Invasive 74 mm[Hg] DR CHASIDY LAURENT MD [facility] 06-01-2023 10:34-0500 Heart rate 69 /min DR CHASIDY LAURENT MD [facility] 06-01-2023 10:34-0500 Respiratory rate 17 /min DR CHASIDY LAURENT MD [facility] 06-01-2023 10:34-0500 Systolic Blood Pressure Non-Invasive 135 mm[Hg] DR CHASIDY LAURENT MD [facility] 06-01-2023 10:23-0500 Heart rate 68 /min DR CHASIDY LAURENT MD [facility] 06-01-2023 10:23-0500 Respiratory rate 18 /min DR CHASIDY LAURENT MD [facility] 06-01-2023 10:16-0500 Diastolic Blood Pressure Non-Invasive 72 mm[Hg] DR CHASIDY LAURENT MD [facility] 06-01-2023 10:16-0500 Heart rate 74 /min DR CHASIDY LAURENT MD [facility] 06-01-2023 10:16-0500 Respiratory rate 17 /min DR CHASIDY LAURENT MD [facility] 06-01-2023 10:16-0500 Systolic Blood Pressure Non-Invasive 120 mm[Hg] DR CHASIDY LAURENT MD [facility] 06-01-2023 10:07-0500 Body temperature 96.62 [degF] DR CHASIDY LAURENT MD [facility] 06-01-2023 10:07-0500 Diastolic Blood Pressure Non-Invasive 77 mm[Hg] DR CHASIDY LAURENT MD [facility] 06-01-2023 10:07-0500 Systolic Blood Pressure Non-Invasive 116 mm[Hg] DR CHASIDY LAURENT MD [facility] 06-01-2023 10:05-0500 Respiratory Rate - Anes 5 br/min DR CHASIDY LAURENT MD [facility] 06-01-2023 10:00-0500 Respiratory Rate - Anes 23 br/min DR CHASIDY LAURENT MD [facility] 06-01-2023 08:34-0500 Body height 172.[address] CHASIDY LAURENT MD [facility] 06-01-2023 08:34-0500 Body temperature 98.24 [degF] DR CHASIDY LAURENT MD [facility] 06-01-2023 08:34-0500 Body weight [address] CHASIDY LAURENT MD [facility] 06-01-2023 08:34-0500 Heart rate 72 /min DR CHASIDY LAURENT MD [facility] 11-28-2022 12:06-0400 Body temperature 97.9 [degF] No Primary Care Physician [facility] 11-28-2022 12:06-0400 Diastolic blood pressure 78 mm[Hg] No Primary Care Physician [facility] 11-28-2022 12:06-0400 Heart rate 51 /min No Primary Care Physician [facility] 11-28-2022 12:06-0400 Respiratory rate 17 /min No Primary Care Physician [facility] 11-28-2022 12:06-0400 SaO2% (BldA) [Mass fraction] 98 % No Primary Care Physician [facility] 11-28-2022 12:06-0400 Systolic blood pressure 146 mm[Hg] No Primary Care Physician [facility] 11-28-2022 12:00-0400 Body mass index (BMI) [Ratio] 22.5 kg/m2 No Primary Care Physician [facility] 11-27-2022 11:35-0400 Body height 175.26 cm No Primary Care Physician [facility] 11-27-2022 11:35-0400 Body weight 69 kg No Primary Care Physician [facility] Encounters Encounter Date Encounter Type Care Provider Facility Start: 08-26-2024 End: 08-26-2024 ambulatory Anne Arellano MD Work Phone: [facility] Work Phone: Start: 08-26-2024 End: 08-26-2024 Patient encounter procedure Tae Zuleyka FINISHING ROOM SUPERVISOR-C -Laboratory, [facility] Start: 08-26-2024 End: 08-26-2024 ambulatory Anne Arellano Facility:[facility] Start: 08-23-2024 End: 08-23-2024 ambulatory Anne Arellano MD Work Phone: [facility] Work Phone: Start: 08-23-2024 End: 08-23-2024 Patient encounter procedure Oliver Dang DO -Cat Scan, [facility] Work Phone: Start: 08-23-2024 End: 08-23-2024 ambulatory Chalon Adan Facility:[facility] Start: 07-20-2024 End: 07-20-2024 Patient encounter procedure Oliver Dang DO [facility] Work Phone: Start: 07-20-2024 End: 07-20-2024 ambulatory Chalon Adan Facility:[facility] Start: 06-12-2024 End: 06-12-2024 Emergency department patient visit Dr. Elvis Gonzalez DO -Emergency Department Work Phone: Start: 03-14-2024 End: 03-14-2024 ambulatory Chalon Adan Facility:[facility] Start: 02-25-2024 End: 02-25-2024 ambulatory [facility] Facility:[facility] Start: 06-01-2023 End: 06-01-[address] CHASIDY LAURENT MD Facility:[facility] Start: 06-01-2023 End: 06-01-[address] CHASIDY LAURENT MD [facility] Start: 02-26-2023 End: 02-26-2023 ambulatory No Primary Care Physician [facility] Work Phone: Start: 02-26-2023 End: 02-26-2023 Patient encounter procedure No Primary Care Physician [facility] Start: 11-28-2022 Non-patient / Non-visit No Primary Care Physician [facility] Work Phone: Start: 11-27-2022 End: 11-28-2022 Evaluation and management of inpatient No Primary Care Physician [facility] Unit Work Phone: Start: 11-27-2022 Non-patient / Non-visit No Primary Care Physician [facility] Start: 11-26-2022 Non-patient / Non-visit No Primary Care Physician [facility] Work Phone: Procedures Date Procedure Procedure Detail Performing Clinician Start: 08-23-2024 CT of thorax, abdome n and pelvis with contrast Anne Arellano MD Work Phone: Start: 06-12-2024 Plain chest X-ray Dylan Arellano MD Work Phone: Start: 11-27-2022 MRI of brain without contrast No Primary Care Physician Start: 11-27-2022 MRI of cervical spine N o Primary Care Physician Start: 11-26-2022 Plain chest X-ray No Pr imary Care Physician Start: 11-26-2022 CT angiography of he ad and neck No Primary Care Physician Colonoscopy DR CHASIDY MORTENSEN MD Structure of right a nkle (body structure) DR CHASIDY LAURENT MD Comment on above: fracture right ankle with metal fixation. Plan of Treatment Date Care Activity Detail Author Start: 06-12-2024 [facility] Start: 06-12-2024 [facility] Start: 11-28-2022 Patient discharge [facility] Start: 11-27-2022 Admission procedure [facility] Start: 11-27-2022 Telepractice consultation [facility] Start: 11-26-2022 Following clinical pathway protocol [facility] Start: 11-26-2022 Ambulation without limitation [facility] Start: 11-26-2022 Assessment of risk of venous thromboembolism [facility] Start: 11-26-2022 Cardiac monitoring [facility] Start: 11-26-2022 Catheterization of vein [facility] Start: 11-26-2022 Elevation of head of bed [facility] Start: 11-26-2022 Exercises [facility] Start: 11-26-2022 Implementation of planned interventions [facility] Start: 11-26-2022 Insertion of catheter into peripheral vein [facility] Start: 11-26-2022 Measuring intake and output [facility] Start: 11-26-2022 Notification of physician [facility] Start: 11-26-2022 Oxygen therapy [facility] Start: 11-26-2022 Patient referral to dietitian [facility] Start: 11-26-2022 Providing care according to standard [facility] Start: 11-26-2022 Referral to occupational therapist [facility] Start: 11-26-2022 Referral to service [facility] Start: 11-26-2022 Speech therapy assessment [facility] Start: 11-26-2022 Tobacco use cessation education [facility] Start: 11-26-2022 [facility] Start: 11-26-2022 Admission procedure [facility] Start: 11-26-2022 [facility] Start: 11-26-2022 Patient referral to dietitian [facility] Patient Education ED Chest Pain, Uncertain Cause [facility] Work Phone: Patient referral [facility] Work Phone: Immunizations Immunization Date Immunization Notes Care Provider Fa cility 01-17-2021 Covid (Pfizer) No Primary Ca re Physician [facility] 12-20-2020 Covid (Pfizer) No Primary Ca re Physician [facility] Payers Date Payer Category Payer Self-pay [id number] 2023 Medicare [id number] 1960 Unknown [id number] [id number] Unknown [id number] 2.16.8 [id number] Unknown [id number] [id number] [id number] Unknown [id number] [id number] [id number] Unknown [id number] 2.16.8 [id number] Unknown [id number] [id number] [id number] Unknown [id number] 2.16.8 [id number] Social History Date Type Detail Facility Start: [facility]28-2022 [facility] Start: 11-28-2022 Cigarettes [facility] Start: 1960 Sex Assigned At Male [facility] Start: 06-01-2023 Tobacco smoking status Heavy t obacco smoker (finding) [facility] Start: 07-20-2024 Tobacco smoking stat us [facility] Smokes tobacco daily (finding) [facility] Start: 08-26-2024 End: 08-31-2024 Sex Male (finding) [facility] Goals Date Patient Goal Desired Activity /State Functional Status Date Assessment Result Facility 06-01-2023 Functional Status Repositions self [facility] 06-01-2023 Functional Status Maintained [facility] 11-28-2022 Functional status Ambulates [facility] Work Phone: Mental Status Date Assessment Result Facility 06-12-2024 Cognitive function Voice/Name [facility] Work Phone: 06-01-2023 Mental Status Orientation Oriented x 4 [facility] 06-01-2023 Mental Status [facility] 11-28-2022 Cognitive function Voice/Name [facility] Work Phone: Clinical Notes 11-26-2022 to 08-24-2024 Note Date & Type Note Facility 08-24-2024 Radiology Diagnostic study note [facility] Imaging Services [address], [place] [id number] CT Chest, Abd, Pel w/Contrast MR#: [id number] Acct: [id number] Name: CHARAN GARCIA Rep #: [id number] : [id number] M 64 From: Jannie Gomez MD PCP: Dr. Anne Arellano MD Status: REG CL I Study:CT Chest, Abd, Pel w/Contrast Date of E xam: 08/23/24 Exam# [id number] Ordering Dr: Roby Dang DO PROCEDURE: CT CHEST, ABD, PEL W/CONTRAST 08/23/2024 REASON FOR EXAM: WEIGHT LOSS, CHEST PAIN, H/O COPD TECHNIQUE: Chest, abdomen and pelvis CT with intravenous contrast. Coronal and Sagittal reconstruction series were provided. One or more dose reduction techniques were used (e.g., Automated exposure control, adjustment of the mA and/or kV according to patient size, use of iterative reconstruction technique. PATIENT PREPARATION: Per protocol ORAL CONTRAST TYPE: None. AMOUNT: mL CONTRAST: Isovue 370 VOLUME: 100ML 18 gauge IV RADIATION DOSE SUMMARY: CTDlvol: 554.3 mGy DLP: 876.7 mGycm COMPARISON: None. FINDINGS: CT CHEST: Hardware: None Lymph nodes: No lymphadenopathy. Heart and Vasculature: The heart is normal in size. The great vessels are normal in size and caliber. No pericardial effusion. Lungs and Airways: Central airways are patent. There is a cavitary lesion within the superior segment of the right lower lobe measuring 1.9 x 2.3 cm, likely representing infectious or inflammatory, less likely neoplastic process. Mild upper lobe predominant centrilobular emphysematous changes within bilateral lungs. Pleura: No pleural effusion or pneumothorax. Bones: No aggressive osseous lesions. No acute fractures. CT ABDOMEN/PELVIS: Liver: Unremarkable Gallbladder: Unremarkable Spleen: Unremarkable Pancreas: No main pancreatic ductal dilation. Adrenals: Unremarkable Kidneys: Kidneys are normal in size and configuration. No hydronephrosis or nephrolithiasis. Bladder: No focal bladder wall thickening. Reproductive Organs: Unremarkable Bowel: Oral contrast opacifies the small bowel and colon. No small bowel or large bowel obstruction or dilation. Diverticulosis within the sigmoid colon. Appendix: Not visualized Lymph nodes: No lymphadenopathy. Vasculature: Patent vasculature. Peritoneum / Retroperitoneum: Unremarkable Bones: No aggressive osseous lesions. No acute fractures. CT/CT Chest, Abd, Pel w/Contrast IMPRESSION: *Cavitary lesion within the superior segment of the right lower lobe. *Mild upper lobe predominant centrilobular emphysematous changes within bilateral lungs. *Diverticulosis within the sigmoid colon. Reading Location: [id number] CC: Dr. Anne Arellano MD; Oliver Friend, ~ Alternative Medicine Practitioner: Signed [facility] 07-20-2024 Evaluation note Diagnosis Onset Date Resolution Gastroesophageal reflux disease noneactive July 20, 2024 1:42pm [facility] Work Phone: 1(716) 915-421801-15-2024 Hospital Discharge instructions Patient Education 06/01/2023 10:26:46 Steps to Quit Smoking, [id number] Steps to Quit Smoking Smoking tobacco is [...] a prescription, and some you can buy frpa-oji-[id number]. Some medicines may contain a drug called [...] tablets as well as websites. Examples include QuitGuide from the [employer] and smokefree.gov What things can I do to make it easier to quit? Talk to your family and friends. Ask them to support and encourage you. Call a phone quitline (8-086-FTRVNOW), reach out to support groups, or work [...] of your body at a time from headto toe. Notice which parts of your body [...] quit plan, and talk with your doctor ifyou have any questions or concerns. Summary Smoking [...] 02/28/2010 Document Revised: 07/22/2019 Document Reviewed: 07/23/2019 [employer] Patient Education 2020 [employer]. 06/01/2023 10:26:43 Smoking Tobacco Information, Adult Smoking [...] a long-term lung condition that makes it hardto breathe. It also gets worse over time. [...] tobacco and the long-term costs of treating healthproblems from smoking. Secondhand smoke may affect those [...] with someone else, so that you can supporteach other. Talk with your health care provider [...] tests (screenings) to check for cancer. This mayinclude blood tests, imaging tests, and other tests. [...] local community. Calling the smokefree.gov counselor helpline: 3-354-Prgo-Now ( ) Where to find more information You may find more information about quitting smoking from: HelpGuide.org: www.helpguide.org Smokefree.gov: smokefree.gov [place] [employer]: www.lung.org Contact a health care [...] 05/19/2017 Document Revised: 06/23/2018 Document Reviewed: 05/19/2017 Publimind Patient Education 2020 [employer]. 06/01/2023 10:26:39 Coping with Quitting Smoking Coping with Quitting Smoking Quitting smoking is a physical and mental challenge. You will face cravings, withdrawal symptoms, and temptation. Before quitting, work with your health care provider to make a plan that can help youcope. Preparation can help you quit and keep you from giving in. How can I cope with cravings? Cravings usually last for 5 10 minutes. If you get through it, the craving will pass. Consider taking the following actions to help you cope with cravings: Keep your mouth busy: ?Chew sugar-free gum. ?Suck on hard candies or a straw. ?Randolph your teeth. Keep your hands and body [...] group. Call a quit line, such as NodePrimeNOW. Talk with your health care provider about medicines that might help you cope with cravings and makequitting easier for you. How can I deal [...] stick to the plan after you quit. Yourplan should include: Having healthy snacks. When you [...] other things that might distract you as youeat. Exercising regularly: ?Make time to exercise each [...] 05/01/2017 Document Revised: 04/16/2018 Document Reviewed: 05/01/2017 Publimind Patient Education 2020 [employer]. 06/01/2023 10:26:09 Monitored Anesthesia Care, Care After Monitored Anesthesia Care, Care After These instructions provide you with information about caring for yourself after your procedure. Your health care provider may also give you more specific instructions. Your treatment has been plannedaccording to current medical practices, but problems sometimes [...] have someone help care for you until youare awake and alert. Rest as needed. Do [...] before eating solid foods. General instructions Take cfrs-vft-otinlhl and prescription medicines only as told by [...] 08/24/2016 Document Revised: 08/02/2018 Document Reviewed: 08/24/2016 Publimind Patient Education 2020 [employer] 06/01/2023 10:26:04 Esophagogastroduodenoscopy, Care After (31818) Esophagogastroduodenoscopy, Care After Refer to this sheet [...] 04/20/2013 Document Revised: 10/09/2016 Document Reviewed: 03/27/2016 Publimind Interactive Patient Education 2019 [employer]. Follow Up Care 05/13/2023 11:35:08 With:CHASIDY LAURENT MD Address: [address] [phone] When: Unknown Comments:CALL DR LAURENT WITH ANY QUESTONS OR CONCERNS. GO TO THE EMERGENCY ROOM WITH ANY URGENT CONCERNS. [facility] Shawnasho Landa 01-15-2024 Note Discharge Instructions Thank you for allowing [facility] to assist you with your healthcare needs. The following is importantdischarge information regarding your hospital visit. Your Care Team DR. LAURENT. Your Diagnosis Gastroesophageal reflux What to do next Follow Up Appointments Follow Up with CHASIDY LAURENT MD When Why: CALL DR LAURENT WITH ANY QUESTONS OR CONCERNS. GO TO THE EMERGENCY ROOM WITH ANY URGENT CONCERNS. Where: [address] [facility] [address] [place], [place] [phone] The Following Activity and Diet Have Been Ordered for You Discharge Activity - Ordered -- NO activity restrictions, 06/01/23 10:06:00 EST Discharge Diet - Ordered -- Follow the post-operative/post-procedure diet instructions provided by your physician's office.,06/01/23 10:06:00 EST The Following Equipment Has Been [...] and or supplements as they may interact withyour home medications. What How Much When Instructions [...] a prescription, and some you can buy ulii-mcw-czlvfij. Some medicines may contain a drug called [...] tablets as well as websites. Examples include QuitGuide from the [employer] and smokefree.gov What things can I do to make it easier to quit? Talk to your family and friends. Ask them to support and encourage you. Call a phone quitline (0-020-ZHZGNOW), reach out to support groups, or work [...] quit plan, and talk with your doctor ifyou have any questions or concerns. Summary Smoking [...] 02/28/2010 Document Revised: 07/22/2019 Document Reviewed: 07/23/2019 Publimind Patient Education 2020 [employer]. Smoking Tobacco Information, Adult Smoking tobacco can [...] a long-term lung condition that makes it hardto breathe. It also gets worse over time. [...] tobacco and the long-term costs of treating healthproblems from smoking. Secondhand smoke may affect those [...] with someone else, so that you can supporteach other. Talk with your health care provider [...] tests (screenings) to check for cancer. This mayinclude blood tests, imaging tests, and other tests. [...] local community. Calling the smokefree.gov counselor helpline: Now ( ) Where to find more information You may find more information about quitting smoking from: HelpGuide.org: www.helpguide.org Smokefree.gov: smokefree.gov [place] [employer]: www.lung.org Contact a health care [...] 05/19/2017 Document Revised: 06/23/2018 Document Reviewed: 05/19/2017 Publimind Patient Education 2020 [employer] Coping with Quitting Smoking Quitting smoking is a physical and mental challenge. You will face cravings, withdrawal symptoms, and temptation. Before quitting, work with your health care provider to make a plan that can help youcope. Preparation can help you quit and keep you from giving in. How can I cope with cravings? Cravings usually last for 5 10 minutes. If you get through it, the craving will pass. Consider taking the following actions to help you cope with cravings: Keep your mouth busy: ? Chew sugar-free gum. ? Suck on hard candies or a straw. ? Randolph your teeth. Keep your hands and body [...] group. Call a quit line, such as 3-219-HYZDHeyWire BusinessNOW. Talk with your health care provider about medicines that might help you cope with cravings and makequitting easier for you. How can I deal [...] stick to the plan after you quit. Yourplan should include: Having healthy snacks. When you [...] 05/01/2017 Document Revised: 04/16/2018 Document Reviewed: 05/01/2017 Publimind Patient Education 2020 [employer] Monitored Anesthesia Care, Care After These instructions provide you with information about caring for yourself after your procedure. Your health care provider may also give you more specific instructions. Your treatment has been plannedaccording to current medical practices, but problems sometimes [...] have someone help care for you until youare awake and alert. Rest as needed. Do [...] before eating solid foods. General instructions Take prkr-mqk-hysenze and prescription medicines only as told by [...] 08/24/2016 Document Revised: 08/02/2018 Document Reviewed: 08/24/2016 Publimind Patient Education 2020 [employer]. Esophagogastroduodenoscopy, Care After Refer to this sheet [...] 04/20/2013 Document Revised: 10/09/2016 Document Reviewed: 03/27/2016 [employer] Interactive Patient Education 2019 Publimind Inc. Additional Information VACCINATE! IT SAVES LIVES! Members of the community who have not yet received the COVID-19 vaccine and would like to receive it can visit one of [facility] vaccine clinics. There are many vaccine clinic locations within the [facility]. For locations and available times, please visit https://gettheshot.coronavirus.[place].gov/. It is important to note that some COVID mobile vaccine clinics are held outdoors and may be canceled in rainy or stormy conditions. To learn more about pediatric vaccinations (ages 5-11), we invite you to visit the [facility] webpage. https://www.[facility].org/pages/4502-Vqlpz-Mzvdirfbrvz-Aemlstswjs-Nmbmm-Yzg stions.htmlTo learn more about the COVID-19 vaccine, we invite you to visit the CDC website for a list of frequently asked questions.https://www.cdc.gov/coronavirus/2019-ncov/vaccines/faq.html [facility] Patient Portal Access Instructions: Stay connected with your healthcare team and access your personal medical information anytime with the [facility] Patient Portal. Please follow the directions below to create your [employer] account: 1.Access the email account you provided upon registration to the hospital/physician office.2.Look for an invitation email from [facility].3.Open the email and access the invitation link: AcceptInvitation to [facility].4.Fill in the required juarez to create your account. To access your account, visit PeekYou/PeopLeasehart. Click the blue button labeled Access Patient Portal and then log in with the username and password that you created in the steps above. You will be able to view your test results, lab results, a summary of your visits, upcoming appointments and more. There is also a convenient messaging option where you can send secure messages to your p [employer]Ex Mediavider. In addition, you will have the ability to download any documents or summaries to your computer and/or send the information securely to a physician. Remember that your healthcare information is confidential, so carefully consider who you will allowto register on the [facility] Patient Portal for access to your information. You can also access the [facility] Patient Portal on the [facility] mirela. Simply click on Patient Portal and then log into your account. If you would like to receive a full copy of your medical records, please contact the [facility] Medical Records Department by calling [phone], Thursday through Thursday between 8 a.m. and 4:30 p.m. HOW TO SAFELY DISPOSE OF PRESCRIPTION MEDICATIONS Please use one of the following methods to safely dispose of your unused medications. 1.Use a drug disposal kit: the drug disposal pouch allows you to safely discard your old and unuseddrugs. Ask your nurse to give you one when you are discharged.2.Visit a local take-back location: Many local pharmacies and police departments have programs that collect old and unwanted prescriptiondrugs. Call your local pharmacy or go to http://[employer].Refresh.io/9K4Eb0j to find one close to you.3.Make use of household items: Use cat litter or old coffee grounds to dispose medications if other options arenot available. Mix your drugs with these household products, seal them in an airtight container andthrow it into the garbage. Call [facility]: [phone] to be sure your drugs can be [...] Patient Education Materials Steps to Quit Smoking, Udyw-cf-Hpcn Smoking Tobacco Information, Adult Coping with Quitting Smoking Monitored Anesthesia Care, Care After Esophagogastroduodenoscopy, Care After (06640) Medication Leaflets My discharge plan and instructions have been reviewed and explained to me and I,CHARAN GARCIA understand my current condition and have read and understand these discharge instructions. I have receiveda written copy of the plan/instructions. If I have questions, I am aware that I should contact my do ctor. Patient/Regional Guide Signature: Date/Time: Relationship to Patient: Witness Name/Signature: Date/Time: [facility]01-15-2024 Anesthesiology Consult note Patient: CHARAN GARCIA Age: 63 years Sex: Male : 1960 Associated Diagnoses: None Author: WESLEY INFANTE Assessment Postanesthesia assessment Vitals: Vital signs from [...] within normal limits. Digitally Signed by WESLEY INFANTE on 06/01/2023 10:10 AM [facility]01-15-2024 Anesthesiology Consult note Patient: CHARAN GARCIA Age: [...] Father COPD Father Procedure history: Right ankle ([id number]). Comments: 06/01/2023 8:24 EST - Lida May RN fracture right ankle with metal fixation. Colonoscopy ([id number]). Social History Social & Psychosocial Habits Alcohol [...] Resp Rate 20 br/min (JUN 01 08:34) CRC279 mmHg (JUN 01 08:34) DBP75 mmHg (JUN 01 08:34) Measurements from flowsheet : Measurements 06/01/2023 8:34 EST Height 172.72 cm Admission Weight 75.0 kg [place] Body Weight 68.40 kg Admission Body Mass [...] Surgeon SN - CAt - Role Performed Import Coordinator 1 SN - CAt - Role Performed ORDNANCE EQUIPMENT WORKER SN - CAt - Role Performed Soil Science Teacher 06/01/2023 8:41 EST Lactated Ringers Injection Begin Bag 1,000 mL mL 06/01/2023 8:34 EST Height 172.72 cm Admission Weight 75.0 kg [place] Body Weight 68.40 kg Admission Body Mass [...] 8:33 EST IV Present Present Allergies Yes Staff Reporter On Yes Consent Form Signed Yes Patient [...] Person #1 We May Share PRIMO abreu. [phone] Designated Person #1 Relationship Spouse Privacy Restrictions [...] evident Teaching Method Explanation Preferred Spoken Language Danish Preferred Written Language Danish Teaching Evaluation No further teaching needed Safety Brochure Information Reviewed Unable to complete [facility]man Video Viewed No Information Given by Patient Patient's Current Physicians dr frederick ([place]) Discharge To, Anticipated Home with family care [...] Day Patient History . Assessment and Plan [place] [employer] Anesthesiologists (ASA) physical status classification: Class III. Anesthetic Preoperative Plan Anesthetic technique: MAC. Informed consent: signed by patient. Digitally Signed by WESLEY INFANTE on 06/01/2023 10:00 AM [facility]07-14-2023 Discharge summary Author Charan Martinez [facility] November 28, 2022 10:53am Note Date/Time November 28, 2022 10:4 8am [facility] Medical Records Department [address] [place] [id number] Discharge Summary 11/28/22 1045 MR#: [id number] Acct: [id number] Name: CHARAN GARCIA Rep #:[id number] : 1960 62 From: Charan Martinez MD PCP: Care Physician,No Primary Status :ADM IN Location: [place] [address] Providers Date of Admission: 11/27/22 Date of Discharge: 11/28/22 Primary Care Physician: No Primary Care Phys Reason For Visit: stroke Diagnosis Discharge Diagnosis (1) TIA (transient ischemic attack): Status: Acute Code(s): G45.9 - Transient cerebral ischemic attack, unspecified Plan Patient is a 62-year-old gentleman presenting with paresthesias in multiple difficulty involving the left upper extremity 1. Acute ischemic CVA ? Patient presented with multiple complaints including left upper arm paresthesias, gait disturbance, intermittent speech difficulty which has since resolved. Admitted to monitored bed ordered neurochecks every [address] angio of the head and neck in the emergency department which came back negative subsequently placed on a monitored bed. Ordered MRI of the head as well as cervical spine without contrast. Patient started on antiplatelet therapy with aspirin and statin therapy with atorvastatin ? 11/27/2022;MRI of the brain without contrast obtained did show Prominent subacute ischemic infarct in the right upper alessio extending from the belly to the right paracentral pontine tegmentum extending from the belly of the alessio an smaller subacute ischemic infarcts in the peripheral aspect of the right upper pontine tegmentum. 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 Mild C4-C5 intervertebral osteochondritis (Modic type I) and moderate stenosis of the right C4-C5 intervertebral neural foramen due to prominent bone spur. Moderate C6-C7 intervertebral osteochondritis (Modic type I). Normal cervical spinal cord. -Consult subsequently placed to telemetry neurology 2. New onset hypertension ? Patient blood pressure control not optimal however given his acute ischemic event plan is to gradually lower his blood pressure. 3. Dyslipidemia ? With total cholesterol of 201 and LDL of 142. Patient started on high-dose statin with LDL goal of less than 70 4. GERD ? Patient is on ogst-uvu-vzxpwtm PPI prescribed Protonix in the hospital 5.. Tobacco dependence - Counseled on cessation, offered nicotine patch for tobacco cravings 6. DVT prophylaxis - On enoxaparin Time spent in the patient's overall evaluation,decision-making process, review of diagnostic data, adjustment of management, discussion with other providers, nursing nursing and ancillary staff involved in patient's care documentation, 35minutes Medications at Discharge Home Medications esomeprazole magnesium 20 mg capsule,delayed release 20 mg PO DAILY 11/26/22 olopatadine 0.2 % eye drops (Eye Allergy Itch Relief) 1 drp EACH EYE DAILY PRN ALLERGIES 11/26/22 aspirin 81 mg chewable tablet 81 mg PO BREAKFAST 90 days #90 tabs 11/28/22 atorvastatin 80 mg tablet 80 mg PO QHS #90 tabs 11/28/22 clopidogrel 75 mg tablet (Plavix) 75 mg PO DAILY #21 tabs 11/28/22 losartan 50 mg-hydrochlorothiazide 12.5 mg tablet 1 tab PO DAILY #90 tabs 11/28/22 Hospital Course Summary of Care Provided Minutes Spent on Discharge: 35 Physical Exam Narrative GENERAL: cooperative HEENT: Atraumatic; normocephalic EYES; Anicteric, Normal Conjunctiva NECK; supple, normal thyroid, RESPIRATORY: Diminished to auscultation CARDIOVASCULAR: Regular S1 S2, GI: soft, normoactive bowel sounds, : No Renal angle tenderness; EXTREMITIES: No edema, no clubbing, MUSCULOSKELETAL: no muscle wasting NEURO: Awake; no lateralizing signs. SKIN: No Rash PSYCH; Flat affect Weight / BMI Weight Weight: 69 kg Body Mass Index (BMI) 22.5 ABG / Lab / Microbiology Data 11/27/22 05:52 11/27/22 05:52 Laboratory: Laboratory Results - last 24 hr 11/27/22 05:52: Hemoglobin A1c 5.4 Radiography Diagnostic Testing: Radiology Impression Chest X-Ray 11/26/22 12:55 IMPRESSION: No acute abnormality seen. Electronically Signed: Siva De Luna MD at 13:55 EDT , Echocardiogram 11/26/22 16:05 Interpretation Summary The estimated ejection fraction is 60 %. Trivial tricuspid valve insufficiency. Trivial aortic valve insufficiency. Bubble contrast study negative for right to left interatrial shunt. Ordering Physician: Charan Martinez Performed By: Hortensia Ayala and Student Brain MRI 11/27/22 10:55 IMPRESSION: Prominent subacute ischemic infarct in the right upper alessio extending from the belly to the right paracentral pontine tegmentum extending from the belly of the alessio and smaller subacute ischemic infarcts in the peripheral aspect of the right upper pontine tegmentum. 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 Electronically Signed: Ronnie Walker MD at 11:20 EDT , ADDENDUM: 11/27/22 1137 IMPRESSION: Prominent subacute ischemic infarct in the right upper alessio extending from the belly to the right paracentral pontine tegmentum extending from the belly of the alessio and smaller subacute ischemic infarcts in the peripheral aspect of the right upper pontine tegmentum. 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 N.B. : The above Results were Read Back by Ronnie Walker MD to Sophy Reza RN, and understanding confirmed on 11/27/2022 11:30:47 (ET). Electronically Signed: Ronnie Walker MD at 11:20 EDT , Cervical Spine MRI 11/27/22 10:55 IMPRESSION: 1. No MRI evidence of cervical extruded disc fragment. 2. Mild C4-C5 intervertebral osteochondritis (Modic type I) and moderate stenosis of the right C4-C5 intervertebral neural foramen due to prominent bone spur. 3. Moderate C6-C7 intervertebral osteochondritis (Modic type I). 4. Normal cervical spinal cord. 5. Abnormal T2 hyperintensity of the upper pontine tegmentum corresponds to the prominent subacute ischemic infarct of the right paracentral pontine tegmentum on MRI brain of 11/27/2022. Electronically Signed: Ronnie Walker MD at 11:26 EDT , D/C Instructions Discharge Diet: No restrictions Discharge Activity: Return to Normal Activity Call your doctor if you observe: Fever of 101 or Higher, Shortness of breath, Fainting spells and Chest pain Meaningful Use Info Meaningful Use Diagnoses (Choose all that apply): Ischemic CVA CVA Therapy Assessed for PT,OT and/or ST?: Yes Ischemic Stroke Antithrombotic order at d/c?: Yes Dx of Atrial fib/flutter?: No Statins at discharge?: Yes Primary Dx Acute Ischemic CVA?: Yes IV thrombolytic ordered during stay?: No Reason IV thrombolytic not ordered: Medical Contraindication Discharge Plan Admission Admit Date/Time: 11/27/22 15:30 Attending Provider: Charan Martinez Primary Care Provider: Care Physician,No Primary Discharge Orders/Prescriptions Prescriptions: New atorvastatin 80 mg Tablet 80 mg PO QHS Qty: 90 0RF aspirin 81 mg Tablet,Chewable 81 mg PO BREAKFAST 90 Days Qty: 90 0RF clopidogrel [Plavix] 75 mg tablet 75 mg PO DAILY Qty: 21 0RF losartan-hydrochlorothiazide 50-12.5 mg tablet 1 tab PO DAILY Qty: 90 0RF Continued esomeprazole magnesium 20 mg capsule,delayed release(DR/EC) 20 mg PO DAILY olopatadine [Eye Allergy Itch Relief] 0.2 % drops 1 drp EACH EYE DAILY PRN (Reason: ALLERGIES) Rx Instructions: PT GETS OTC EYE ALLERGY DROPS FROM [facility] TO USE NEEDED Discontinued naproxen 500 MG tablet 500 mg PO BID PRN (Reason: pain) Referrals / Follow Up: Care Physician,No Primary [Primary Care Provider] - Within 2 Weeks Disposition Disposition (needs filled in before D/C Order can be placed): Home, Self Care Charges/Coding Visit Charges Inpatient E&M: 88256 Disch Hosp >30min 11/28/22 1053 <Electronically signed by Charan Martinez MD> Cosigner Signature (if applicable): CC: Dr. Charan Martinez MD; No Primary Care Physician~ Signed [facility] Work Phone: [phone]) 728-147807-14-2023 Progress note Author Charan Martinez [facility] November 28, 2022 10:45am Note Date/Time November 28, 2022 8:14 am [facility] Medical Records Department [address] [place] [id number] Progress Note - Hospitalist 11/28/22 0812 MR#: [id number] Acct: [id number] Name: CHARAN GARCIA Rep #:[id number] : 1960 62 From: Charan Martinez MD PCP: Care Physician,No Primary Status :ADM IN Location: [place] [address] Reason for Visit Reason for Visit: Diagnoses Transient cerebral ischemic attack, unspecified (11/27/22) Subjective Subjective Patient admitted with left-sided paresthesias and subjective weakness MRI did show acute CVA currently on a monitored bed where patient is being managed Objective Data Objective Data Vital Signs: Vital Signs Temp Pulse Resp BP Pulse Ox O2 Del Method 97.7 F L 60 16 153/80 H 97 Room Air 11/28/22 04:45 11/28/22 04:45 11/28/22 04:45 11/28/22 04:45 11/28/22 04:45 11/28/22 08:00 Oxygen Delivery Method Room Air Weight: 69 kg Body Mass Index (BMI) 22.5 Intake & Output: Intake and Output for Last 24 Hours 11/26/22 11/27/22 11/28/22 23:59 23:59 23:59 Intake Total 300 / 540 3603.75 / 3603.75 240 / 240 Balance 300 / 540 3603.75 / 3603.75 240 / 240 Lab / Micro Data 11/27/22 05:52 11/27/22 05:52 Labs: Laboratory Results - last 24 hr 11/27/22 05:52: Hemoglobin A1c 5.4 Radiography Diagnostic Testing: Radiology Impression Chest X-Ray 11/26/22 12:55 IMPRESSION: No acute abnormality seen. Electronically Signed: Siva De Luna MD at 13:55 EDT , Echocardiogram 11/26/22 16:05 Interpretation Summary The estimated ejection fraction is 60 %. Trivial tricuspid valve insufficiency. Trivial aortic valve insufficiency. Bubble contrast study negative for right to left interatrial shunt. Ordering Physician: Charan Martinez Performed By: Hortensia Ayala and Student Brain MRI 11/27/22 10:55 IMPRESSION: Prominent subacute ischemic infarct in the right upper alessio extending from the belly to the right paracentral pontine tegmentum extending from the belly of the alessio and smaller subacute ischemic infarcts in the peripheral aspect of the right upper pontine tegmentum. 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 Electronically Signed: Ronnie Walker MD at 11:20 EDT , ADDENDUM: 11/27/22 1137 IMPRESSION: Prominent subacute ischemic infarct in the right upper alessio extending from the belly to the right paracentral pontine tegmentum extending from the belly of the alessio and smaller subacute ischemic infarcts in the peripheral aspect of the right upper pontine tegmentum. 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 N.B. : The above Results were Read Back by Ronnie Walker MD to Sophy Reza RN, and understanding confirmed on 11/27/2022 11:30:47 (ET). Electronically Signed: Ronnie Walker MD at 11:20 EDT , Cervical Spine MRI 11/27/22 10:55 IMPRESSION: 1. No MRI evidence of cervical extruded disc fragment. 2. Mild C4-C5 intervertebral osteochondritis (Modic type I) and moderate stenosis of the right C4-C5 intervertebral neural foramen due to prominent bone spur. 3. Moderate C6-C7 intervertebral osteochondritis (Modic type I). 4. Normal cervical spinal cord. 5. Abnormal T2 hyperintensity of the upper pontine tegmentum corresponds to the prominent subacute ischemic infarct of the right paracentral pontine tegmentum on MRI brain of 11/27/2022. Electronically Signed: Ronnie Walker MD at 11:26 EDT , Physical Exam Narrative GENERAL: cooperative HEENT: Atraumatic; normocephalic EYES; Anicteric, Normal Conjunctiva NECK; supple, normal thyroid, RESPIRATORY: Diminished to auscultation CARDIOVASCULAR: Regular S1 S2, GI: soft, normoactive bowel sounds, : No Renal angle tenderness; EXTREMITIES: No edema, no clubbing, MUSCULOSKELETAL: no muscle wasting NEURO: Awake; no lateralizing signs. SKIN: No Rash PSYCH; Flat affect Assessment & Plan Assessment/Plan (1) TIA (transient ischemic attack): PLAN: Plan Patient is a 62-year-old gentleman presenting with paresthesias in multiple difficulty involving the left upper extremity 1. Acute ischemic CVA ? Patient presented with multiple complaints including left upper arm paresthesias, gait disturbance, intermittent speech difficulty which has since resolved. Admitted to monitored bed ordered neurochecks every [address] angio of the head and neck in the emergency department which came back negative subsequently placed on a monitored bed. Ordered MRI of the head as well as cervical spine without contrast. Patient started on antiplatelet therapy with aspirin and statin therapy with atorvastatin ? 11/27/2022;MRI of the brain without contrast obtained did show Prominent subacute ischemic infarct in the right upper alessio extending from the belly to the right paracentral pontine tegmentum extending from the belly of the alessio an smaller subacute ischemic infarcts in the peripheral aspect of the right upper pontine tegmentum. 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 Mild C4-C5 intervertebral osteochondritis (Modic type I) and moderate stenosis of the right C4-C5 intervertebral neural foramen due to prominent bone spur. Moderate C6-C7 intervertebral osteochondritis (Modic type I). Normal cervical spinal cord. -Consult subsequently placed to telemetry neurology 2. New onset hypertension ? Patient blood pressure control not optimal however given his acute ischemic event plan is to gradually lower his blood pressure. 3. Dyslipidemia ? With total cholesterol of 201 and LDL of 142. Patient started on high-dose statin with LDL goal of less than 70 4. GERD ? Patient is on [id number]-[id number] PPI prescribed Protonix in the hospital 5.. Tobacco dependence - Counseled on cessation, offered nicotine patch for tobacco cravings 6. DVT prophylaxis - On enoxaparin Time spent in the patient's overall evaluation,decision-making process, review of diagnostic data, adjustment of management, discussion with other providers, nursing nursing and ancillary staff involved in patient's care documentation, 35minutes Charges/Coding Visit Charges Inpatient E&M: 65239 Subs Hosp L2 11/28/22 1045 <Electronically signed by Charan Martinez MD> Cosigner Signature (if applicable): CC: ~ Signed [facility] Work Phone: 1([phone]) 189-733907-13-2023 Progress note Author Charan Martinez [facility] November 27, 2022 12:11pm Note Date/Time November 27, 2022 8:13 am [facility] Medical Records Department [address] [facility] [place] [address] Progress Note - Hospitalist 11/27/22811 MR#: [id number] Acct: [id number] Name: JSOECHARANARABELLA Rep #:[id number] : 1960 62 From: Charan Martinez MD PCP: Care Physician,No Primary Status :ADM LAURI Location: [place] [address] Reason for Visit Reason for Visit: Diagnoses Transient cerebral ischemic attack, unspecified (11/26/22) Subjective Subjective Patient seen complains of feeling tired. MRI of the brain without contrast obtained did show Prominent subacute ischemic infarct in the right upper alessio extending from the belly to the right paracentral pontine tegmentum extending from the belly of the alessio an smaller subacute ischemic infarcts in the peripheral aspect of the right upper pontine tegmentum. 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 Mild C4-C5 intervertebral osteochondritis (Modic type I) and moderate stenosis of the right C4-C5 intervertebral neural foramen due to prominent bone spur. Moderate C6-C7 intervertebral osteochondritis (Modic type I). Normal cervical spinal cord. Objective Data Objective Data Vital Signs: Vital Signs Temp Pulse Resp BP Pulse Ox O2 Del Method 97.5 F L 54 L 17 164/74 H 97 Room Air 11/27/22 07:54 11/27/22 07:54 11/27/22 07:54 11/27/22 07:54 11/27/22 07:54 11/27/22 07:54 Oxygen Delivery Method Room Air Weight: 69.2 kg Body Mass Index (BMI) 22.5 Intake & Output: Intake and Output for Last 24 Hours 11/25/22 11/26/2223 23:59 23:59 23:59 Intake Total 300 / 540 1403.75 / 1403.75 Balance 300 / 540 1403.75 / 1403.75 Lab / Micro Data 11/27/22 05:52 11/27/22 05:52 Labs: Laboratory Results - last 24 hr 11/26/22 12:40: WBC 6.1, RBC 4.84, Hgb 15.8, Hct 47.6, MCV 98.3 H, MCH 32.6 H, MCHC 33.2, RDW Std Deviation 50.0 H, RDW Coeff of Birdie 13.7, Plt Count , MPV 10.3, Immature Gran % (Auto) 0.200, Neut % (Auto) 66.7, Lymph % (Auto) 21.5, Tyrrell % (Auto) 8.3, Eos % (Auto) 2.6, Baso % (Auto) 0.7, Absolute Neuts (auto) 4.0, Absolute Lymphs (auto) 1.30, Nucleated RBC % 0, Platelet Estimate ADEQUATE,PT Cancelled, INR Cancelled, APTT Cancelled, Sodium 140, Potassium 3.5, [id number] H, Carbon Dioxide 24.0, Anion Gap 5, BUN 19 H, Creatinine 0.88, Estim Creat Clear Calc 84.80, Est GFR (MDRD) Af Amer 113, Est GFR (MDRD) Non-Af 93, BUN/Creatinine Ratio 21.7 H, Glucose 115 H, Calcium 8.8, Troponin I High Sens 7 11/26/22 13:03: PT 14.0, INR 1.1, APTT 28.9 11/27/22 05:52: WBC 6.5, RBC 4.30 L, Hgb 14.1, Hct 41.6, MCV 96.7 H, MCH 32.8 H,MCHC 33.9, RDW Std Deviation 48.3 H, RDW Coeff of Birdie 13.5, Plt Count 239, MPV 9.6, Immature Gran % (Auto) 0.300, Neut % (Auto) 66.4, Lymph % (Auto) 20.8, Tyrrell% (Auto) 8.0, Eos % (Auto) 3.7, Baso % (Auto) 0.8, Absolute Neuts (auto) 4.3, Absolute Lymphs (auto) 1.36, Nucleated RBC % 0, Sodium 139, Potassium 3.7, Chloride 111 H, Carbon Dioxide 25.0, Anion Gap 3 L, BUN 17, Creatinine 0.88, Estim Creat Clear Calc 83.01, Est GFR (MDRD) Af Amer 113, Est GFR (MDRD) Non-Af 93, BUN/Creatinine Ratio 19.4, Glucose 93, Calcium 8.1 L, Phosphorus 2.6, Magnesium 2.1, Total Bilirubin 0.50, AST 9 L, ALT 16, Alkaline Phosphatase 59, Total Protein 5.6 L, Albumin 2.8 L, Globulin 2.8, Albumin/Globulin Ratio 1.0, Triglycerides 116, Cholesterol 201 H, LDL Cholesterol 142 H, VLDL Cholesterol 23, HDL Cholesterol 36 L, TSH 2.62 Radiography Diagnostic Testing: Radiology Impression Head/Neck CTA 11/26/22 12:50 IMPRESSION: No acute intracranial process. N.B. : The above Results were Read Back by Lo Bishop MD to Noé Vasquez DO, and understanding confirmed on 11/26/2022 13:29:32 (ET). Electronically Signed: Lo Bishop MD at 13:21 EDT , Physical Exam Narrative GENERAL: cooperative HEENT: Atraumatic; normocephalic EYES; Anicteric, Normal Conjunctiva NECK; supple, normal thyroid, RESPIRATORY: Diminished to auscultation CARDIOVASCULAR: Regular S1 S2, GI: soft, normoactive bowel sounds, : No Renal angle tenderness; EXTREMITIES: No edema, no clubbing, MUSCULOSKELETAL: no muscle wasting NEURO: Awake; no lateralizing signs. SKIN: No Rash PSYCH; Flat affect Assessment & Plan Assessment/Plan (1) TIA (transient ischemic attack): PLAN: Plan Patient is a 62-year-old gentleman presenting with paresthesias in multiple difficulty involving the left upper extremity 1. Acute ischemic CVA ? Patient presented with multiple complaints including left upper arm paresthesias, gait disturbance, intermittent speech difficulty which has since resolved. Admitted to monitored bed ordered neurochecks every [address] angio of the head and neck in the emergency department which came back negative subsequently placed on a monitored bed. Ordered MRI of the head as well as cervical spine without contrast. Patient started on antiplatelet therapy with aspirin and statin therapy with atorvastatin ? 11/27/2022;MRI of the brain without contrast obtained did show Prominent subacute ischemic infarct in the right upper alessio extending from the belly to the right paracentral pontine tegmentum extending from the belly of the alessio an smaller subacute ischemic infarcts in the peripheral aspect of the right upper pontine tegmentum. 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 Mild C4-C5 intervertebral osteochondritis (Modic type I) and moderate stenosis of the right C4-C5 intervertebral neural foramen due to prominent bone spur. Moderate C6-C7 intervertebral osteochondritis (Modic type I). Normal cervical spinal cord. -Consult subsequently placed to telemetry neurology 2. New onset hypertension ? Patient blood pressure control not optimal however given his acute ischemic event plan is to gradually lower his blood pressure. 3. Dyslipidemia ? With total cholesterol of 201 and LDL of 142. Patient started on high-dose statin with LDL goal of less than 70 4. GERD ? Patient is on [id number] PPI prescribed Protonix in the hospital 5.. Tobacco dependence - Counseled on cessation, offered nicotine patch for tobacco cravings 6. DVT prophylaxis - On enoxaparin Time spent in the patient's overall evaluation,decision-making process, review of diagnostic data, adjustment of management, discussion with other providers, nursing nursing and ancillary staff involved in patient's care documentation, 50minutes Charges/Coding Visit Charges Inpatient E&M: 58048 Subs Hosp 11/27/22 1211 <Electronically signed by Charan Martinez MD> Cosigner Signature (if applicable): CC: ~ Signed [facility] Work Phone: 1(781) 107-937007-12-2023 Discharge summary Author Noé Vasquez [facility] November 26, 2022 4:20pm Note Date/Time November 26, 2022 4:18 pm [facility] Medical Records Department [address] [place] [address] Emergency Department Summary 11/26/22 MR#: [id number] Acct: [id number] Name: CHARAN GARCIA Rep #:[id number] : 1960 62 From: Noé Vasquez DO PCP: Care Physician,No Primary Status :ADM LAURI Location: [address] History of Present Illness Chief Complaint: Neuro S/Sx Narrative Narrative: Patient is a 62-year-old male who is presenting to the ER with stroke symptoms. Patient's symptoms started on Thursday. Patient had numbness, tingling and weakness to the left arm, also weakness to his left leg as well. Patient had difficulty with function of his left arm and left leg. Patient also had some speech deficits son and wanted to have resolved. Patient has not seen a doctor in over 10 to 15 years. Patient smokes at least a pack of cigarettes a day. Rare alcohol, patient lives at home with family. Patient's and daughter athome. Patient takes no medications daily. Patient has been taking a baby aspirin since Thursday. Patient's numbness and tingling and weakness in his left arm and leg have improved, but patient still having dexterity problems with his left hand and also difficulty walking with his left leg. Patient has no speech deficits today. Patient's symptoms have also been intermittent Thursday, Thursday and Thursday. Patient is finally presenting to the ER today. Patient has no headache, not lightheaded or dizzy. No chest pain or shortness of breath. No abdominal pain, nausea or vomiting, no other acute complaints. [facility] Medical History GERD (gastroesophageal reflux disease) Home Medications esomeprazole magnesium 20 mg capsule,delayed release 20 mg PO DAILY 11/26/22 [History Last Taken 11/26/22] naproxen 500 mg tablet 500 mg PO BID PRN pain 11/26/22 [History Last Taken Unknown] olopatadine 0.2 % eye drops (Eye Allergy Itch Relief) 1 drp EACH EYE DAILY PRN ALLERGIES 11/26/22 [History Last Taken Unknown] Allergy/AdvReac Type Severity Reaction Status Date / Time No Known Allergies Allergy Verified 11/26/22 12:00 Family History (Updated 11/26/22 @ 16:[address] Charan Martinez MD) Mother CVA (cerebral vascular accident) Surgical History (Updated 11/26/22 @ 15:30 by Quynh Goldberg) History of ankle surgery Social History Smoking Status: Current every day smoker tobacco type: cigarettes ROS ROS ED ROS Narrative REVIEW OF SYSTEMS: Unless otherwise stated in this report the patient's positiveand negative responses for review of systems for constitutional, eyes, ENT, cardiovascular, respiratory, gastrointestinal, neurological, , musculoskeletal, and integument systems and related systems to the presenting problem are either stated in the history of present illness or were not pertinent or were negative for the symptoms and/or complaints related to the presenting medical problem. EXAM Physical Exam Narrative Exam Narrative: Vital signs reviewed and patient is not hypoxic. General: The patient appears well and in no apparent distress. Patient is resting comfortably on cart. Not toxic, lethargic, or listless. Skin: Warm, dry, no pallor noted. There is no rash noted. Head: Normocephalic, , no carotid bruits bilateral. Atraumatic Eye: Normal conjunctiva, no drainage, EOMI. PERRL. Ears, Nose, Mouth, and Throat: oral mucosa is moist. Nares patent. Mouth withoutvesicles. Cardiovascular: Regular Rate and Rhythm, no murmurs, gallops, or rubs Respiratory: Patient is in no distress, no accessory muscle use, lungs are clearto auscultation, no wheezing, rales or rhonchi Back: non-tender, no CVA tenderness bilaterally to percussion. NO CTLS midline or paraspinal tenderness to palpation. GI: Soft, no tenderness to palpation, no masses appreciated. No rebound, guarding, or rigidity noted. Musculoskeletal: The patient has full range of motion of all extremities and joints with no difficulty. Patient has no motor, no sensory deficits. Neurological: A&O x4, normal speech, no focal neurological deficits. NIH 1, patient has slight difficulty with wkmcdz-co-down testing on the left and also slight difficulty with needed strickland testing with his left leg as well. No speechdeficit. Psychiatric: Cooperative Const Vital Signs: 11/26/22 11:58 11/26/22 12:44 11/26/22 12:44 Temperature 97.5 F L Temperature Source Temporal Pulse Rate 70 Respiratory Rate 16 Blood Pressure 138/118 H 148/72 H 136/61 H Blood Pressure Mean 124 97 86 Pulse Ox 100 Oxygen Delivery Method Room Air 11/26/22 14:00 11/26/22 15:00 Temperature Temperature Source Pulse Rate 50 L Respiratory Rate 18 Blood Pressure 136/61 H 154/71 H Blood Pressure Mean 86 98 Pulse Ox 97 Oxygen Delivery Method Room Air MDM MDM MDM Narrative Medical decision making narrative: Patient was given a full aspirin. Patient had a CTA of the head neck that showed no acute abnormalities. Patient has a history of tobacco abuse, also medical noncompliance. Lab work shows no significant findings. Patient be admitted for further stroke work-up. Patient does have some mild dexterity/ataxia issues that are lingering with his left hand and left leg. However, most of his symptoms have resolved that he has been experiencing on Thursday, Thursday and Thursday with numbness, tingling, and more pronounced weaknessto the left arm and leg. Patient also had some mild dysarthria Thursday and Thursday that has resolved as well. Patient was given a full aspirin. Patient beadmitted for further stroke evaluation. Patient was seen evaluated by Dr. Martinez in the ER. Lab Data Attestation: I reviewed the patient's lab results. Labs: Laboratory Results - last 24 hr 11/26/22 11/26/22 12:40 13:03 WBC 6.1 RBC 4.84 Hgb 15.8 Hct 47.6 MCV 98.3 H MCH 32.6 H MCHC 33.2 RDW Std Deviation 50.0 H RDW Coeff of Birdie 13.7 Plt Count MPV 10.3 Immature Gran % (Auto) 0.200 Neut % (Auto) 66.7 Lymph % (Auto) 21.5 Tyrrell % (Auto) 8.3 Eos % (Auto) 2.6 Baso % (Auto) 0.7 Absolute Neuts (auto) 4.0 Absolute Lymphs (auto) 1.30 Nucleated RBC % 0 Platelet Estimate ADEQUATE PT Cancelled 14.0 INR Cancelled 1.1 APTT Cancelled 28.9 Sodium 140 Potassium 3.5 Chloride 111 H Carbon Dioxide 24.0 Anion Gap 5 BUN 19 H Creatinine 0.88 Estim Creat Clear Calc 84.80 Est GFR (MDRD) Af Amer 113 Est GFR (MDRD) Non-Af 93 BUN/Creatinine Ratio 21.7 H Glucose 115 H Calcium 8.8 Troponin I High Sens 7 Radiography Diagnostic Testing: Clinical Impression(s) from Imaging Studies Head/Neck CTA 11/26/22 12:50 IMPRESSION: No acute intracranial process. N.B. : The above Results were Read Back by Lo Bishop MD to Noé Vasquez DO, and understanding confirmed on 11/26/2022 13:29:32 (ET). Electronically Signed: Lo Bishop MD at 13:21 EDT , ADDENDUM: 11/26/22 1338 IMPRESSION: No acute intracranial process. N.B. : The above Results were Read Back by Lo Bishop MD to Noé Vasquez DO, and understanding confirmed on 11/26/2022 13:29:32 (ET). Electronically Signed: Lo Bishop MD at 13:21 EDT , EKG Initial EKG: Attestation: I personally reviewed and interpreted this EKG as follows: Comments: EKG interpretation. Normal sinus rhythm at 61 beats a minute. Normal axis deviation. No acute ST elevation, no acute ectopy. QTc of 436. Discharge Plan Dx/Rx/DC Orders Clinical Impression: Left-sided weakness, Tobacco abuse Disposition Disposition: Acute Care Hospital [facility] Discharge Date/Time: 11/26/22 15:58 What to do if you have Problems For any increased pain, shortness of breath, bleeding, nausea or vomiting, chestpain, or any unexpected problems, contact your Primary Care Provider. Call [facility] ([phone]) or report to the closest Emergency Room. Call 911 if necessary. 11/26/22 1620 <Electronically signed by Noé Vasquez DO> Cosigner Signature (if applicable): CC: No Primary Care Physician ~ Signed [facility] Work Phone: 1(571) 852-252307-12-2023 History and physical note Author Charan Martinez [facility] November 26, 2022 4:09pm Note Date/Time November 26, 2022 3:26 pm [facility] Medical Records Department [address] [place] [address] H&P Exam - Hospitalist 11/26/22 1525 MR#: [id number] Acct: [id number] Name: CHARAN GARCIA Rep #:[id number] : 1960 62 From: Charan Martinez MD PCP: Care Physician,No Primary Status :ADM LAURI Location: [place] [address] HPI - General General Date of Admission: 11/26/22 Date of Service: 11/26/22 HPI Narrative CHARAN GARCIA, is a 62 M who presents difficulty with coordination involving the left side. Per patient symptoms started 4 days prior to his admission. In addition to difficulty with dexterity and motor function according to the patient involving the left upper extremity he also did experience some numbness on the left side as well as some difficulty with gait. Per family patient also had some speech difficulty which has since resolved. In view of of the intermittent nature of his symptoms he presented to the emergency department initial head CT came back negative subsequently admitted to a monitored bed for further manner [facility] Medical History GERD (gastroesophageal reflux disease) Home Medications esomeprazole magnesium 20 mg capsule,delayed release 20 mg PO DAILY 11/26/22 [History Last Taken 11/26/22] naproxen 500 mg tablet 500 mg PO BID PRN pain 11/26/22 [History Last Taken Unknown] olopatadine 0.2 % eye drops (Eye Allergy Itch Relief) 1 drp EACH EYE DAILY PRN ALLERGIES 11/26/22 [History Last Taken Unknown] Allergy/AdvReac Type Severity Reaction Status Date / Time No Known Allergies Allergy Verified 11/26/22 12:00 Family History (Updated 11/26/22 @ 16:[address] Charan Martinez MD) Mother CVA (cerebral vascular accident) Surgical History (Updated 11/26/22 @ 15:30 by Quynh Goldberg) History of ankle surgery Social History Smoking Status: Current every day smoker tobacco type: cigarettes Vital Signs Vital Signs Vital Signs: 11/26/22 11:58 11/26/22 12:44 11/26/22 12:44 Temperature 97.5 F L Temperature Source Temporal Pulse Rate 70 Respiratory Rate 16 Blood Pressure 138/118 H 148/72 H 136/61 H Blood Pressure Mean 124 97 86 Pulse Ox 100 Oxygen Delivery Method Room Air 11/26/22 14:00 11/26/22 15:00 Temperature Temperature Source Pulse Rate 50 L Respiratory Rate 18 Blood Pressure 136/61 H 154/71 H Blood Pressure Mean 86 98 Pulse Ox 97 Oxygen Delivery Method Room Air Weight Weight: 72.575 kg Body Mass Index (BMI) 23.6 Physical Exam Narrative GENERAL: cooperative HEENT: Atraumatic; normocephalic EYES; Anicteric, Normal Conjunctiva NECK; supple, normal thyroid, RESPIRATORY: Diminished to auscultation CARDIOVASCULAR: Regular S1 S2, GI: soft, normoactive bowel sounds, : No Renal angle tenderness; EXTREMITIES: No edema, no clubbing, MUSCULOSKELETAL: no muscle wasting NEURO: Awake; no lateralizing signs. SKIN: No Rash PSYCH; Flat affect Results Lab / Micro Data 11/26/22 12:40 11/26/22 12:40 Labs: Laboratory Results - last 24 hr 11/26/22 12:40: WBC 6.1, RBC 4.84, Hgb 15.8, Hct 47.6, MCV 98.3 H, MCH 32.6 H, MCHC 33.2, RDW Std Deviation 50.0 H, RDW Coeff of Birdie 13.7, Plt Count , MPV 10.3, Immature Gran % (Auto) 0.200, Neut % (Auto) 66.7, Lymph % (Auto) 21.5, Tyrrell % (Auto) 8.3, Eos % (Auto) 2.6, Baso % (Auto) 0.7, Absolute Neuts (auto) 4.0, Absolute Lymphs (auto) 1.30, Nucleated RBC % 0, Platelet Estimate ADEQUATE,PT Cancelled, INR Cancelled, APTT Cancelled, Sodium 140, Potassium 3.5, [id number] H, Carbon Dioxide 24.0, Anion Gap 5, BUN 19 H, Creatinine 0.88, Estim Creat Clear Calc 84.80, Est GFR (MDRD) Af Amer 113, Est GFR (MDRD) Non-Af 93, BUN/Creatinine Ratio 21.7 H, Glucose 115 H, Calcium 8.8, Troponin I High Sens 7 11/26/22 13:03: PT 14.0, INR 1.1, APTT 28.9 Radiology Impression Head/Neck CTA 11/26/22 12:50 IMPRESSION: No acute intracranial process. N.B. : The above Results were Read Back by Lo Bishop MD to Noé Vasquez DO, and understanding confirmed on 11/26/2022 13:29:32 (ET). Electronically Signed: Lo Bishop MD at 13:21 EDT , ADDENDUM: 11/26/22 1338 IMPRESSION: No acute intracranial process. N.B. : The above Results were Read Back by Lo Bishop MD to Noé Vasquez DO, and understanding confirmed on 11/26/2022 13:29:32 (ET). Electronically Signed: Lo Bishop MD at 13:21 EDT , Assessment & Plan Assessment/Plan (1) TIA (transient ischemic attack): PLAN: Plan Patient is a 62-year-old gentleman presenting with paresthesias in multiple difficulty involving the left upper extremity 1. Transient ischemic attack ? Patient presented with multiple complaints including left upper arm paresthesias, gait disturbance, intermittent speech difficulty which has since resolved. Admitted to monitored bed ordered neurochecks every [address] angio of the head and neck in the emergency department which came back negative subsequently placed on a monitored bed. Ordered MRI of the head as well as cervical spine without contrast. Patient started on antiplatelet therapy with aspirin and statin therapy with atorvastatin 2. Elevated blood pressure ? Patient is not a known hypertensive monitoring 3. GERD ? Patient is on [id number]-aaqfdpr PPI prescribed Protonix in the hospital 4. Tobacco dependence - Counseled on cessation, offered nicotine patch for tobacco cravings 5. DVT prophylaxis - On enoxaparin Time spent in the patient's overall evaluation,decision-making process, review of diagnostic data, adjustment of management, discussion with other providers, nursing nursing and ancillary staff involved in patient's care documentation, 75minutes Advance planning; did discuss with the patient and family regarding advanced directives as well as CODE STATUS. Did explain the various scenarios involved (FULL CODE, DNR CCA, DNR CCA with no intubation, and DNR CC and what each meant) patient elected full code with CPR and intubation if needed. Order was placed. Time spent on discussion 18 minutes. Charges/Coding Visit Charges Inpatient E&M: 22658 Init Hosp L3 Procedures Hospitalists Procedures: 40532 Advncd Care Plan 30 Min 11/26/22 1609 <Electronically signed by Charan Martinez MD> Cosigner Signature (if applicable): CC: Dr. Charan Martinez MD; No Primary Care Physician~ Signed [facility] Work Phone: Consult note Author Allison Santos [facility] November 28, 2022 11:58am Note Date/Time November 28, 2022 11:5 5am [facility] Medical Records Department [address] [place] [address] Counseling Note - Pharmacy 11/28/22 1154 MR#: [id number] Acct: [id number] Name: CHARAN GARCIA Rep #:[id number] : 1960 62 From: Allison Santos PCP: Care Physician,No Primary Status :ADM IN Y Location: [place] [id number] 1 Pharmacy [facility] has performed discharge medication reconciliation and counseling for this patient. The patient was counseled on the following discharge medications and changes in medications for homegoing were reviewed. 1. Losartan-HCTZ. 2. Lipitor 3. Plavix 4. Aspirin The Reason for Use, instructions for use, and potential side effects were reviewed for all new medications. The patient's questions regarding all of their medications were answered. The patient was able to verbally demonstrate an understanding of their dischargemedications. The patient's discharge medication list was reviewed for discrepancies and discrepancies were resolved. Patient counselled by Nolberto Bentley PharmD Medications at Discharge Home Medications esomeprazole magnesium 20 mg capsule,delayed release 20 mg PO DAILY 11/26/22 olopatadine 0.2 % eye drops (Eye Allergy Itch Relief) 1 drp EACH EYE DAILY PRN ALLERGIES 11/26/22 aspirin 81 mg chewable tablet 81 mg PO BREAKFAST 90 days #90 tabs 11/28/22 atorvastatin 80 mg tablet 80 mg PO QHS #90 tabs 11/28/22 clopidogrel 75 mg tablet (Plavix) 75 mg PO DAILY #21 tabs 11/28/22 losartan 50 mg-hydrochlorothiazide 12.5 mg tablet 1 tab PO DAILY #90 tabs 11/28/22 11/28/22 1158 <Electronically signed by Allison Santos > Date _ Allison Santos Cosigner Signature (if applicable): Date CC: ~ Signed [facility] Work Phone: Evaluation + Plan note No data available for this section [facility] Evaluation note* Diagnosis Onset Date Resolution Status Left-sided weakness acute TIA (transient ischemic attack) acute Tobacco abuse acute [facility] Work Phone: Evaluation note* Diagnosis Onset Date Resolution Status Tobacco abuse acute Left-sided weakness resolved TIA (transient ischemic attack) resolved [facility] Work Phone: Reason for referral (narrative)No reason for referral [facility]: Chief Complaint and Reason for Visit Chief Complaint TIA (cardiology) TIA (cardiology) stroke TIA (cardiology) Reason for Visit Left-sided weakness TIA (transient ischemic attack) Tobacco abuse Chief Complaint TIA (cardiology) TIA (cardiology) stroke TIA (cardiology) Reason for Visit Tobacco abuse Left-sided weakness TIA (transient ischemic attack) Chief Complaint Admit Date CP June 12, 2024 6 :31pm Gastroesophageal reflux disease (GERD) M 2024 1:42pm ST LOSS, CP, HX COPD August 23, 2024 8:2 4am Reason for Visit Admit Date Gastroesophageal reflux disease July 1:42pm Advance Directives No Advanced Directives Records Found Advance Directive Response Recorded Date/ Time Living Will No November 26, 2022 4:06pm Power of Electronics Warfare Technician No November 26 4:06pm Advance Directive Response Recorded Date/ Time Living Will No June 12 8:26pm Do you have a Healthcare Power of Electronics Warfare Technician? No June 12, 2024 8:26pm Summary Purpose Family History No Family History Records Found Additional Source Comments Care Teams (unrecognized sec tion and content) Team Status: Active Member Role Status Dates No Primary Care Physician Family Provider Active No Primary Care Physician Primary Care Provider Active Team Status: Active Member Role Status Dates No Primary Care Physician Primary Care Provider Active Dr. Noé Vasquez DO Emergency Provider Active Dr. Charan Martinez MD Admit Provider, At tending Provider, Other Provider Active Team Status: Active Member Role Status Dates No Primary Care Physician Primary Care Provider Active Dr. Dolores Bustillos MD Attending Provider Active Team Status: Inactive Member Role Status Dates No Primary Care Physician Primary Care Provider Active Dr. Noé Vasquez , Emergency Provider Active Dr. Charan Martinez MD Admit Provider, Attending Provid er Active Team Status: Active Member Role Status Dates No Primary Care Physician Family Provider Active Dulce Phillips DO Primary Care Provider Active Team Status: Inactive Member Role Status Dates Dulce Phillips DO Primary Care Provider, Attending Provider Active Team Status: Active Member Role Status Dates Anne Arellano MD Primary Care Provider Active Team Status: Inactive Member Role Status Dates Anne Arellano MD Primary Care Provider Active St art: June 12, 2024 End: June 12, 2024 Dr. Elvis Gonzalez DO Attending Provider Activ e Start: June 12, 2024 End: June 12, 2024 Dr. Elvis Gonzalez , Emergency Provider Activ e Start: June 12, 2024 End: June 12, 2024 Team Status: Inactive Member Role Status Dates Anne Arellano MD Primary Care Provider Active St art: July 20, 2024 End: July 20, 2024 Anne Arellano MD Referring Provider Active Start : July 20, 2024 End: July 20, 2024 Dr. Oliver Dang , Attending Provider Active Start: July 20, 2024 End: July 20, 2024 Team Status: Inactive Member Role Status Dates Anne Arellano MD Primary Care Provider Active St art: August 23, 2024 End: August 23, 2024 Dr. Oliver Dang DO Attending Provider Active Start: August 23, 2024 End: August 23, 2024 Dr. Oliver Dang DO Referring Provider Active Start: August 23, 2024 End: August 23, 2024 Team Status: Inactive Member Role Status Dates Anne Arellano MD Primary Care Provider Active St art: August 26, 2024 End: August 26, 2024 Tae McMorrow FINISHING ROOM SUPERVISOR, FINISHING ROOM SUPERVISOR-C Attending Provider Active Start: August 26, 2024 End: August 26, 2024 (unrecognized sect ion and content) No Status Records FoundNo Status Records Found INFORMATION SOURCE (unrecogn ized section and content) DATE CREATED AUTHOR 06/08/2023 [facility] ([place]) DATE CREATED AUTHOR AUTHOR'S MARINIZ ATKOREY 09/02/2024 [facility] Goals (unrecognized section and content) Goals may be documented in a n alternate section FOR RECORDS PERTAINING TO PATIENTS WHO ARE [...] BE BASED ON THE PRIMARY CLINICAL RECORDS. CM [facility]. provides no warranty or guarantee of the accuracy or completeness of information in this document.
== END | disposition home or self-care (01) ==
LOC: MTRAD 14:27
PROVIDERS: PCP Family Medicine; Referring Provider Family Medicine; Visit Provider Family Medicine
DX: M25.532 Pain in left wrist (principal); R20.0 Anesthesia of skin
CPT/HCPCS: 73110

== ENCOUNTER 2025-01-18 16:56 | Inpatient (IN) | payer MEDICARE, SELFPAY ==
[2025-01-18] VITALS (13 sets, daily range): BP systolic 155–175; BP diastolic 72–97; PULSE 59–97; RESP 13–23; TEMP 36.3–37.1; O2SAT 94–99; BMI 20.8; BMI 22.8; BMI 22.0
--- NOTE | 2025-01-18 16:59 | EKG12_ITS ---
Test Reason : Blood Pressure : */* mmHG Vent. Rate : 61 BPM Atrial Rate : 61 BPM P-R Int : 162 ms QRS Dur : 92 ms QT Int : 412 ms P-R-T Axes : 61 25 26 degrees QTcB Int : 414 ms Normal sinus rhythm Normal ECG Confirmed by Siva Swann ([id number]), editorial cartoonist ALIX PENA ([id number]) on 01/20/2025 6:43:49 AM Referred By: Confirmed By: Siva Swann
--- NOTE | 2025-01-18 16:59 | CT_ITS ---
PROCEDURE: STROKE CT BRAIN/HEAD WITHOUT CONTRAST STROKE CTA HEAD AND NECK WITH IV CONTRAST REASON FOR EXAM: NEURO DEFICIT, ACUTE, STROKE SUSPECTED TECHNIQUE: Procedure Code: CTBR.ST; CTCTA.ST.HN Modality: CT Procedure: STROKE BRAIN/HEAD WITHOUT CONT; STROKE CTA HEAD AND NECK W/CON Multiplanar 2D reconstructions, and 3D / MIP post processing was performed. 100 cc of Isovue 370 intravenous contrast was administered. One or more dose reduction techniques were used (e.g., Automated exposure control, adjustment of the mA and/or kV according to patient size, use of iterative reconstruction technique. RADIATION DOSE SUMMARY: CT head: DLP: 849.54 mGycm CTA head/neck: DLP: 1624.82 mGycm COMPARISON: Brain MRI 11/27/2022. CT head 11/26/2022. FINDINGS: NONCONTRAST CT HEAD: Multiple scattered small areas of acute infarct involving the anterior right temporal lobe, right posterior frontoparietal lobes, and left occipital lobe, presumably embolic. No acute intracranial hemorrhage/hemorrhagic conversion on this exam. No extra- axial collection, mass-effect, or hydrocephalus. Unremarkable orbits. Well-aerated sinuses and mastoid air cells. CTA HEAD: Patent major intracranial arterial vasculature. No large vessel occlusion, significant flow-limiting stenosis, saccular aneurysm, or vascular malformation identified. Patent dural venous sinuses. CTA NECK: Conventional aortic arch branching. Bilateral cervical carotid and vertebral arteries are patent without stenosis. No aneurysm or dissection. Dominant left vertebral artery supplies the posterior circulation, with diffusely hypoplastic nondominant right vertebral artery which terminates distally at PICA branches. Mild mixed atheromatous plaque at the carotid bifurcations without any significant luminal narrowing. CT/STROKE Brain/Head without Cont IMPRESSION: 1. 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 2. No acute intracranial hemorrhage/hemorrhagic conversion, or mass-effect. 3. No intracranial or cervical large vessel arterial occlusion or significant s tenosis. Reading Location: [id number]
--- NOTE | 2025-01-18 17:00 | CT_ITS ---
PROCEDURE: STROKE CT BRAIN/HEAD WITHOUT CONTRAST STROKE CTA HEAD AND NECK WITH IV CONTRAST REASON FOR EXAM: NEURO DEFICIT, ACUTE, STROKE SUSPECTED TECHNIQUE: Procedure Code: CTBR.ST; CTCTA.ST.HN Modality: CT Procedure: STROKE BRAIN/HEAD WITHOUT CONT; STROKE CTA HEAD AND NECK W/CON Multiplanar 2D reconstructions, and 3D / MIP post processing was performed. 100 cc of Isovue 370 intravenous contrast was administered. One or more dose reduction techniques were used (e.g., Automated exposure control, adjustment of the mA and/or kV according to patient size, use of iterative reconstruction technique. RADIATION DOSE SUMMARY: CT head: DLP: 849.54 mGycm CTA head/neck: DLP: 1624.82 mGycm COMPARISON: Brain MRI 11/27/2022. CT head 11/26/2022. FINDINGS: NONCONTRAST CT HEAD: Multiple scattered small areas of acute infarct involving the anterior right temporal lobe, right posterior frontoparietal lobes, and left occipital lobe, presumably embolic. No acute intracranial hemorrhage/hemorrhagic conversion on this exam. No extra- axial collection, mass-effect, or hydrocephalus. Unremarkable orbits. Well-aerated sinuses and mastoid air cells. CTA HEAD: Patent major intracranial arterial vasculature. No large vessel occlusion, significant flow-limiting stenosis, saccular aneurysm, or vascular malformation identified. Patent dural venous sinuses. CTA NECK: Conventional aortic arch branching. Bilateral cervical carotid and vertebral arteries are patent without stenosis. No aneurysm or dissection. Dominant left vertebral artery supplies the posterior circulation, with diffusely hypoplastic nondominant right vertebral artery which terminates distally at PICA branches. Mild mixed atheromatous plaque at the carotid bifurcations without any significant luminal narrowing. CT/STROKE CTA Head AND Neck W/Con IMPRESSION: 1. 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 2. No acute intracranial hemorrhage/hemorrhagic conversion, or mass-effect. 3. No intracranial or cervical large vessel arterial occlusion or significant s tenosis. Reading Location: [id number]
--- NOTE | 2025-01-18 17:00 | EX.ED.DYSGE1 ---
HPI History of Present Illness Chief Complaint: Neuro S/Sx [facility] Medical History (Updated 01/18/25 @ 17:54 by Maurizio Estrada) Hyperlipidemia HTN (hypertension) CVA (cerebral vascular accident) Hiatal hernia GERD (gastroesophageal reflux disease) Home Medications ?Medication ?Instructions ?Recorded ?Last Taken ?Type esomeprazole magnesium 20 mg 40 mg PO Q12H 11/26/22 11/26/22 History capsule,delayed release cholecalciferol (vitamin D3) 125 125 mcg PO QDAY 07/20/24 Unknown History mcg (5,000 unit) capsule Held on 01/18/25. Instructions: Order Completed clopidogrel 75 mg tablet (Plavix) 75 mg PO QDAY 07/20/24 Unknown History losartan 100 mg tablet 100 mg PO QDAY 07/20/24 Unknown History naproxen sodium 220 mg capsule 220 mg PO Q12H PRN pain 07/20/24 Unknown History (Aleve) rosuvastatin 10 mg tablet (Crestor) 10 mg PO QDAY 07/20/24 Unknown History meloxicam 15 mg tablet 15 mg PO DAILY 01/18/25 Unknown History prednisone 20 mg tablet 20 mg PO DAILY 01/18/25 Unknown History Allergy/AdvReac Type Severity Reaction Status Date / Time No Known Allergies Allergy Verified 11/26/22 12:00 Family History (Updated 11/26/22 @ 16:[address] Malachi Martinez MD) Mother CVA (cerebral vascular accident) Surgical History (Updated 11/26/22 @ 15:30 by Quynh Goldberg) History of ankle surgery Social History (Updated 07/20/24 @ 14:18 by Erin Guerrero) Smoking Status: Heavy Smoker (>10/day) substance use type: marijuana EXAM Physical Exam Const Vital Signs: 01/18/25 16:57 01/18/25 17:10 01/18/25 17:14 Temperature 97.9 F 98.6 F Temperature Source Oral Oral Pulse Rate 97 86 Respiratory Rate 16 18 Blood Pressure 174/97 H 168/76 H Blood Pressure Mean 122 106 Pulse Ox 99 98 Oxygen Delivery Method Room Air Room Air Room Air 01/18/25 17:17 01/18/25 17:29 01/18/25 17:43 Temperature 98.7 F 97.8 F 98.7 F Temperature Source Oral Oral Oral Pulse Rate 85 79 70 Respiratory Rate 15 18 22 H Blood Pressure 164/74 H 162/76 H 162/72 H Blood Pressure Mean 104 104 102 Pulse Ox 98 98 97 Oxygen Delivery Method Room Air Room Air Room Air 01/18/25 17:56 Temperature 97.8 F Temperature Source Pulse Rate 75 Respiratory Rate 13 Blood Pressure 162/72 H Blood Pressure Mean 102 Pulse Ox 96 Oxygen Delivery Method [facility] Narrative Medical decision making narrative: HISTORY OF PRESENT ILLNESS: Chief complaint: 64-year-old male history of CVA, GERD, hypertension, hyperlipidemia presents with acute onset of speech difficulties and facial drooping. Last known well was 1400 on 01/18/2025. Denies blood thinners. Denies recent head trauma. Per the patient significant other speech is much different. Per staff, the patient's face is also asymmetric. REVIEW OF SYSTEMS: Pertinent positives: Speech difficulty, facial drooping Pertinent negatives: Headache, chest pain PHYSICAL EXAM: Nursing triage notes reviewed, Vital signs reviewed Constitutional: [facility] see [facility] HENT: MMM Eyes: Pupils equal round and reactive to light, Extraocular muscles intact Neck: No stridor, no JVD, full neck ROM Lungs: Clear to auscultation, No wheezing or rales. No increased work of breathing, no conversational dyspnea, no accessory muscle use, no nasal flaring. No respiratory distress noted Heart: Regular rate and rhythm, No murmurs, No rubs and No gallops, 2+ distal pulses (radial, femoral, posterior tibial) in all extremities Abdomen: Soft, there is no tenderness, rigidity, rebound or guarding, no obvious peritoneal signs, no palpable pulsatile abdominal masses, no auscultated abdominal bruit : No CVAT Extremities: No edema Neuro: alert, oriented , left-sided facial droop noted, aphasia, dysarthria noted. No obvious extremity weakness or ataxia noted. No obvious sensory deficits. Patient follows commands. NIH of 4 Skin: No rash or lesions noted MEDICAL DECISION MAKING: Chief Complaint: please see [facility] External records reviewed: Reviewed prior medications. No anticoagulants noted. The patient is on aspirin and Plavix however. Reviewed prior imaging studies: Reviewed MRI of the brain from 2022 which showed subacute ischemic infarct in the right upper alessio Factors affecting care: as per [facility] Social determinants of health: History of tobacco abuse History obtained from others: The patient significant other Consults: Stroke radiology, stroke neurology (Dr. Reyes), internal medicine (Dr. Rao) [facility] Narrative: The patient was initially hemodynamically stable, afebrile and nontoxic-appearing. Initial neurologic exam showed an NIHSS of 4. The patient was then the TNK and thrombectomy window. Code stroke was called from triage given left-sided facial drooping and speech difficulties. Patient after a brief but thorough neurologic exam including full NIH stroke scale was taken directly to the CT scanner suite. I considered the following differential diagnosis: Acute CVA, TIA, focal seizure, ICH I obtained a broad lab and imaging workup to further determine if the patient was suffering from a life-threatening etiology. ALL IMAGES (IF OBTAINED) HAVE BEEN PERSONALLY REVIEWED AND INTERPRETED BY MYSELF. EKG with normal sinus rhythm rate 61, normal axis, normal intervals, no STEMI CBC with no leukocytosis, no anemia or thrombocytopenia No coagulopathy CT scan of the head shows no evidence of ICH but does show some hypodensities per stroke neurology. Also shows embolic CVA CTA of the head neck shows no evidence of large vessel occlusion BMP [] The synthesis of the patient's history, physical exam, labs images suggest acute CVA. Per stroke neurology recommendation will admit to [facility] for MRI and risk factor modification. Discussed with Dr. Rao The patient and/or family, caregivers express understanding. The patient and/or family, caregivers agrees with the plan. Shared decision making: I will have a discussion with the patient and or visitors regarding risk/benefits of further testing or admission. They will be made aware of of the risk/benefits inherent in this decision they will be given the opportunity to voice understanding. Total critical care time today provided was at least 35 minutes. This excludes separately billable procedures. Critical care time (if documented) is secondary to the patient having high probability of clinically significant/life threatening deterioration in the patient's condition which required my urgent intervention. Impression: 1. Facial droop 2. Slurred speech 3. Acute CVA Dispo: Admit to PCU This note was generated with [employer] dictation software. It may contain incorrect words, spelling, and punctuation that were not noted in review of the chart prior to signing. Lab Data Labs: Laboratory Results - last 24 hr 01/18/25 16:59 WBC 7.0 RBC 4.68 Hgb 16.1 Hct 45.0 MCV 96.2 H MCH 34.4 H MCHC 35.8 RDW Std Deviation 47.9 H RDW Coeff of Birdie 13.5 Plt Count 293 MPV 9.5 Immature Gran % (Auto) 0.100 Neut % (Auto) 87.7 H Lymph % (Auto) 9.2 L [place] % (Auto) 2.7 Eos % (Auto) 0.0 Baso % (Auto) 0.3 Absolute Neuts (auto) 6.2 Absolute Lymphs (auto) 0.65 L Nucleated RBC % 0 PT 12.9 INR 1.0 APTT 29.8 Radiography Diagnostic Testing: Clinical Impression(s) from Imaging Studies Brain CT 01/18/25 16:59 IMPRESSION: 1. 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 2. No acute intracranial hemorrhage/hemorrhagic conversion, or mass-effect. 3. No intracranial or cervical large vessel arterial occlusion or significant stenosis. Reading Location: [id number] Head/Neck CTA 01/18/25 17:00 IMPRESSION: 1. 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 2. No acute intracranial hemorrhage/hemorrhagic conversion, or mass-effect. 3. No intracranial or cervical large vessel arterial occlusion or significant stenosis. Reading Location: [id number] Discharge Plan Triage Chief Complaint: Neuro S/Sx ED Provider: Jorge Villareal Dx/Rx/DC Orders Prescriptions: No Action clopidogrel [Plavix] 75 mg tablet 75 mg PO QDAY rosuvastatin [Crestor] 10 mg tablet 10 mg PO QDAY losartan 100 mg tablet 100 mg PO QDAY naproxen sodium [Aleve] 220 mg capsule 220 mg PO Q12H PRN (Reason: pain) cholecalciferol (vitamin D3) 125 mcg (5,000 unit) capsule 125 mcg PO QDAY esomeprazole magnesium 20 mg capsule,delayed release(DR/EC) 40 mg PO Q12H meloxicam 15 mg tablet 15 mg PO DAILY prednisone 20 mg tablet 20 mg PO DAILY Primary Care Provider: Anne Arellano Referrals: Anne Arellano MD [Primary Care Provider] - Print Language: [place]
[2025-01-18 17:12] LABS: Hematocrit 45.0 % (40-54); Hemoglobin 16.1 g/dL (13.0-16.5); Immature Granulocytes Count 0.010 X10^3/uL (0.0-0.0); Mean Corp Hgb Conc 35.8 g/dL (32-36); Mean Corpuscular Volume 96.2 fL (80-94); Mean Platelet Vol. 9.5 fl (6.2-12.0); NRBC Flagged by Analyzer 0 % (0-5); Platelet Count 293 K/mm3 (150-450); RBC Distribution Width CV 13.5 % (11.6-14.6); RBC Distribution Width SD 47.9 fl (35.1-43.9); Red Blood Count 4.68 M/mm3 (4.6-6.2); White Blood Count 7.0 K/mm3 (4.4-11.0)
[2025-01-18 17:29] LABS: Prothrombin Time (Protime)PT. 12.9 SECONDS (11.7-14.9)
[2025-01-18 17:30] LABS: Partial Thromboplast Time 29.8 Seconds (24.1-36.2)
[2025-01-18 18:05] LABS: Troponin T High Sensitivity 6 ng/L (<=22)
[2025-01-18 18:11] LABS: Anion Gap 14 (5-15); BUN 14 mg/dL (4-19); BUN/Creat Ratio 18.7 RATIO (10-20); Calcium,Total 9.2 mg/dL (7.6-11.0); Carbon Dioxide 19.6 mmol/L (21.0-32.0); Chloride 105 mmol/L (98-108); Estimated Creatinine Clearance 89.93 ml/min (50-250); Glucose 119 mg/dL (70-99); Potassium 3.7 mmol/L (3.3-5.1)
--- NOTE | 2025-01-18 18:35 | PCM.HP.STD ---
HPI - General General Date of Admission: 01/18/25 Date of Service: 01/19/25 Chief Complaint: Left hand weakness, left facial droop and slurred speech HPI Narrative CHARAN GARCIA, is a 64-year-old male with a history of GERD, hypertension, tobacco use, CVA who presented to [facility] ED 01/18/2025 due to acute onset of speech difficulties and facial drooping with last known well 1400 on day of presentation. Patient was a stroke alert in the ED. In the ED NIH initially 4. Patient afebrile, heart rate 97 and blood pressure 174/97, respiratory rate 16 pulse ox 99% on room air. CBC with white count of 7 and hemoglobin 16.1. BMP with a bicarb of 19.6, normal gap, glucose 119 otherwise no acute abnormalities. Troponin 6. CT brain with multiple scattered areas of presumably embolic acute infarct involving anterior right temporal lobe, right posterior frontal parietal lobes and left occipital lobe and CTA without LVO. Patient evaluated by telestroke in the ED and it was recommended patient be admitted for further stroke workup given the findings. Hospitalist contacted for admission. Patient evaluated bedside, he revealed that he did have intermittent numbness in tingling in various fingertips on his left hand that would last for 10 minutes and go away over the past 3 weeks and then on he had significant weakness in his left hand, he saw his PCP because he thought it was his neck or his elbow and was going to undergo workup for that however today at 2 PM developed slurred speech and left-sided facial droop prompting him to come to the ED. Patient feels similar to how he did when he arrived except he is intermittently getting the tingling feeling in his fingertips. Denies any recent fevers or chills, no headache or changes in vision, no other numbness, weakness, tingling. Does continue to smoke but has been cutting back. FORMERLY [facility], 1928–1983 Medical History (Updated 01/19/25 @ 13:[address] Yris Rao MD) CVA (cerebral vascular accident) GERD (gastroesophageal reflux disease) Hiatal hernia HTN (hypertension) Hyperlipidemia Home Medications ?Medication ?Instructions ?Recorded ?Last Taken ?Type esomeprazole magnesium 20 mg 20 mg PO Q12H gerd 11/26/22 11/26/22 History capsule,delayed release cholecalciferol (vitamin D3) 125 125 mcg PO QDAY 07/20/24 Unknown History mcg (5,000 unit) capsule Held on 01/18/25. Instructions: Order Completed clopidogrel 75 mg tablet (Plavix) 75 mg PO QDAY 07/20/24 Unknown History losartan 100 mg tablet 100 mg PO QDAY 07/20/24 Unknown History naproxen sodium 220 mg capsule 220 mg PO Q12H PRN pain 07/20/24 Unknown History (Aleve) rosuvastatin 10 mg tablet (Crestor) 10 mg PO QDAY 07/20/24 Unknown History meloxicam 15 mg tablet 15 mg PO DAILY 01/18/25 Unknown History prednisone 20 mg tablet 20 mg PO DAILY 01/18/25 Unknown History Allergy/AdvReac Type Severity Reaction Status Date / Time No Known Allergies Allergy Verified 11/26/22 12:00 Family History (Updated 11/26/22 @ 16:[address] Charan Martinez MD) Mother CVA (cerebral vascular accident) Surgical History (Updated 11/26/22 @ 15:30 by Quynh Goldberg) History of ankle surgery Social History (Updated 07/20/24 @ 14:18 by Erin Guerrero) Smoking Status: Heavy Smoker (>10/day) substance use type: marijuana ROS ROS Narrative General: Denies fever/chills HENT: Denies headache, denies stuffy nose, denies sore throat EYES: Denies changes in vision Resp: Denies cough, denies shortness of breath Cardiac: Denies chest pain GI: Denies abdominal pain, denies changes in bowel, denies nausea/vomiting : Denies changes in urination Extremity: Denies swelling MSK: Weakness in left upper extremity neuro: Intermittent tingling in several fingertips and left arm Heme: Denies any bleeding or bruising Skin: Denies rashes Psychiatric: No complaints voiced Vital Signs Vital Signs Vital Signs: 01/18/25 16:57 01/18/25 17:10 01/18/25 17:14 Temperature 97.9 F 98.6 F Temperature Source Oral Oral Pulse Rate 97 86 Respiratory Rate 16 18 Blood Pressure 174/97 H 168/76 H Blood Pressure Mean 122 106 Pulse Ox 99 98 Oxygen Delivery Method Room Air Room Air Room Air 01/18/25 17:17 01/18/25 17:29 01/18/25 17:43 Temperature 98.7 F 97.8 F 98.7 F Temperature Source Oral Oral Oral Pulse Rate 85 79 70 Respiratory Rate 15 18 22 H Blood Pressure 164/74 H 162/76 H 162/72 H Blood Pressure Mean 104 104 102 Pulse Ox 98 98 97 Oxygen Delivery Method Room Air Room Air Room Air 01/18/25 17:56 01/18/25 17:59 01/18/25 18:15 Temperature 97.8 F 98.4 F 98.1 F Temperature Source Oral Oral Pulse Rate 75 69 77 Respiratory Rate 13 19 H 19 H Blood Pressure 162/72 H 169/81 H 175/97 H Blood Pressure Mean 102 110 123 Pulse Ox 96 97 98 Oxygen Delivery Method Room Air Room Air 01/18/25 18:29 Temperature 98.1 F Temperature Source Oral Pulse Rate 67 Respiratory Rate 23 H Blood Pressure 158/80 H Blood Pressure Mean 106 Pulse Ox 95 Oxygen Delivery Method Room Air Weight Weight: 70 kg Body Mass Index (BMI) 22.8 Physical Exam Narrative General: Alert, oriented, no apparent distress HEENT: Atraumatic, left lower facial droop Eyes: Anicteric, normal conjunctiva, extraocular movements intact, pupils equal Neck: Supple Respiratory: Clear to auscultation bilaterally, normal respiratory effort Cardiovascular: Regular rate and rhythm GI: Soft, nontender, nondistended Extremities: No edema Musculoskeletal: Strength 5 out of 5 in right upper extremity, 4- out of 5 left upper extremity, 5 out of 5 right lower extremity, 5 out of 5 left lower extremity Neuro: LUE weakness, left lower facial droop otherwise cranial nerves II through XII intact, finger-nose intact with right hand, patient has dysmetria with left Skin: No rashes appreciated Psych: Cooperative Results Lab / Micro Data 01/19/25 07:40 01/19/25 07:40 Labs: Laboratory Results - last 24 hr 01/18/25 16:59: WBC 7.0, RBC 4.68, Hgb 16.1, Hct 45.0, MCV 96.2 H, MCH 34.4 H, MCHC 35.8, RDW Std Deviation 47.9 H, RDW Coeff of Birdie 13.5, Plt Count 293, MPV 9.5, Immature Gran % (Auto) 0.100, Neut % (Auto) 87.7 H, Lymph % (Auto) 9.2 L, Bowman % (Auto) 2.7, Eos % (Auto) 0.0, Baso % (Auto) 0.3, Absolute Neuts (auto) 6.2, Absolute Lymphs (auto) 0.65 L, Nucleated RBC % 0, PT 12.9, INR 1.0, APTT 29.8, Sodium 139, Potassium 3.7, Chloride 105, Carbon Dioxide 19.6 L, Anion Gap 14, BUN 14, Creatinine 0.76, Estim Creat Clear Calc 89.93, Est GFR (MDRD) Non-Af 99, BUN/Creatinine Ratio 18.7, Glucose 119 H, Calcium 9.2, Troponin T High Sens 6 Imaging Radiology Impression Brain CT 01/18/25 16:59 IMPRESSION: 1. 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 2. No acute intracranial hemorrhage/hemorrhagic conversion, or mass-effect. 3. No intracranial or cervical large vessel arterial occlusion or significant stenosis. Reading Location: [id number] Head/Neck CTA 01/18/25 17:00 IMPRESSION: 1. 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 2. No acute intracranial hemorrhage/hemorrhagic conversion, or mass-effect. 3. No intracranial or cervical large vessel arterial occlusion or significant stenosis. Reading Location: [id number] Assessment & Plan Assessment/Plan (1) Acute CVA (cerebrovascular accident): PLAN: Plan # Facial droop and speech difficulties with positive CT for CVA -Admit to tele -CT head w/ with multiple scattered areas of presumably embolic acute infarct involving anterior right temporal lobe, right posterior frontal parietal lobes and left occipital lobe and CTA without LVO -CTA head and neck no LVO -MRI ordered -NIH q4hr -asa, statin -Echo, previously negative bubble study -PT/OT/Speech eval -Teleneuro consult placed -Hold BP medications to allow for permissive hypertension for 24 hours unless SBP greater than 220 or DBP greater than 120 or until stroke is ruled out # History of CVA -Appears patient was not taking his clopidogrel on an outpatient basis -Will need to genetic counsellor patient on importance of compliance #Hypertension - Was supposed to be taking losartan but apparently has not taking this -Will be holding antihypertensives as above, would recommend restarting before or on discharge #GERD -Continue PPI #Tobacco use -Advise cessation -Nicotine replacement available if desired #DVT ppx: SCDs Yris Rao MD Charges/Coding Visit Charges Inpatient E&M: 29931 Init Hosp L2
--- NOTE | 2025-01-18 19:15 | CM.ED ---
Social Work Reason for visit: Stroke Alert SW met patients in triage and took her back to room while patient was receiving testing. stated that patient had been to the doctor yesterday and they had no concerns at that time. states when she got home from work she noted that patient has slurred speech and his one hand was not working as it should. Emotional support provided, no further needs identified at this time. Marcia Hurley, ASSISTANT IMPORT MANAGER, [employer]
--- NOTE | 2025-01-18 19:32 | ECHOD_ITS ---
Reason For Study Reason For Study: TIA/CVA Procedure This was a 2D Doppler, Color Flow transthoracic echocardiogram. Exam performed portable in patient room. Left Ventricle Normal LV size. The estimated ejection fraction is 65 %. No evidence for diastolic dysfunction. No regional wall motion abnormalities noted. Right Ventricle Normal RV size. Normal systolic function. Atria The left and right atria are normal. No doppler evidence for ASD. Mitral Valve There is no mitral valve stenosis. No mitral valve insufficiency. Tricuspid Valve There is no tricuspid stenosis. No tricuspid valve insufficiency. Aortic Valve Trisinus/trileaflet aortic valve. There is no aortic stenosis. Trivial aortic valve insufficiency. Pulmonic Valve There is no pulmonic valvular stenosis. No pulmonic valve insufficiency. Great Vessels Normal sized aortic root. Pericardium/Pleural No pericardial effusion. MMode/2D Measurements & Calculations LVIDd: 4.4 cm IVSd: 0.74 cm Ao root diam: 3.4 cm LVIDs: 2.3 cm LVPWd: 0.93 cm RVDd: 3.7 cm FS: 47.2 % LAV(MOD-bp): 46.3 ml LVAd ap4: 25.1 cm2 LVAd ap2: 22.7 cm2 LAV(MOD-bp) Indexed: 25.4 ml/m2 LVLd ap4: 7.5 cm LVLd ap2: 7.3 cm LAV(MOD-sp2): 61.2 ml EDV(MOD-sp4): 70.1 ml EDV(MOD-sp2): 60.6 ml LAV(MOD-sp4): 35.2 ml EDV(sp4-el): 71.0 ml EDV(sp2-el): 60.1 ml LVAs ap4: 13.5 cm2 LVAs ap2: 11.2 cm2 LVLs ap4: 6.2 cm LVLs ap2: 6.1 cm ESV(MOD-sp4): 25.8 ml ESV(MOD-sp2): 18.2 ml ESV(sp4-el): 25.1 ml ESV(sp2-el): 17.4 ml EF(MOD-sp4): 63.2 % EF(MOD-sp2): 69.9 % EF(sp4-el): 64.7 % SV(MOD-sp4): 44.3 ml SV(MOD-sp2): 42.4 ml SV(sp4-el): 45.9 ml SI(MOD-sp4): 24.3 ml/m2 SI(MOD-sp2): 23.2 ml/m2 LA A4 area: 15.1 cm2 LA dimension(2D): 4.1 cm RA A4 area: 13.7 cm2 TAPSE: 2.4 cm Time Measurements MV dec time: 0.25 sec Doppler Measurements & Calculations MV E max sal: 65.4 cm/sec Lat Peak E' Sal: 12.1 cm/sec Med Peak E' Sal: 10.2 cm/sec MV A max sal: 78.9 cm/sec E/E' lat: 5.4 E/E' med: 6.4 MV E/A: 0.83 MV V2 max: 96.0 cm/sec MV P1/2t max sal: 85.2 cm/sec Ao V2 max: 130.0 cm/sec MV max P.7 mmHg MV P1/2t: 74.5 msec Ao max P.8 mmHg MV V2 mean: 55.8 cm/sec Ao V2 mean: 83.8 cm/sec MV mean P.4 mmHg MV dec slope: 335.0 cm/sec2 Ao mean P.3 mmHg MV V2 VTI: 26.4 cm MVA(P1/2t): 3.0 cm2 Ao V2 VTI: 30.4 cm AV (velocity ratio): 0.95 AI max sal: 341.2 cm/sec LV V1 max: 127.4 cm/sec PA V2 max: 87.0 cm/sec AI max P.6 mmHg LV V1 max P.5 mmHg PA V2 mean: 59.4 cm/sec LV V1 mean P.0 mmHg AI dec slope: 136.5 cm/sec2 LV V1 mean: 79.3 cm/sec AI P1/2t: 732.1 msec LV V1 VTI: 29.0 cm TR max sal: 212.4 cm/sec TR max P.0 mmHg ECHO/Echo Complete Interpretation Summary The estimated ejection fraction is 65 %. No evidence for diastolic dysfunction. Trivial aortic valve insufficiency. Ordering Physician: Yris Rao Referring Physician: Anne Arellano Performed By: Flores Weiss RDCS, RVT
[2025-01-18 20:36] LABS: Troponin T High Sens 2 HR 10 ng/L (<=22)
[2025-01-18] MEDS: Nicotine (PBKC) 14 MG Patch TD (21:28)
[2025-01-18] MEDS: 0.9% Saline Lock 10 ML Syringe IV (21:29)
[2025-01-18 22:24] LABS: Troponin T High Sens 4 HR 8 ng/L (<=22)
[2025-01-19] VITALS (7 sets, daily range): BP systolic 151–176; BP diastolic 79–87; PULSE 58–64; RESP 15–18; TEMP 36.5–36.8; O2SAT 94–100; BMI 22.0
[2025-01-19 08:31] LABS: Hematocrit 41.8 % (40-54); Hemoglobin 14.8 g/dL (13.0-16.5); Immature Granulocytes Count 0.010 X10^3/uL (0.0-0.0); Mean Corp Hgb Conc 35.4 g/dL (32-36); Mean Corpuscular Volume 94.4 fL (80-94); Mean Platelet Vol. 9.5 fl (6.2-12.0); NRBC Flagged by Analyzer 0 % (0-5); Platelet Count 236 K/mm3 (150-450); RBC Distribution Width CV 13.4 % (11.6-14.6); RBC Distribution Width SD 46.8 fl (35.1-43.9); Red Blood Count 4.43 M/mm3 (4.6-6.2); White Blood Count 7.2 K/mm3 (4.4-11.0)
--- NOTE | 2025-01-19 09:00 | MRI_ITS ---
PROCEDURE: BRAIN WITHOUT CONTRAST 01/19/2025 REASON FOR EXAM: MULT CVAS TECHNIQUE: Procedure Code: MRIBR Modality: MR Procedure: BRAIN WITHOUT CONTRAST Multiplanar and multisequence images were obtained. FINDINGS: Brain: No hemorrhage is seen. Patchy areas of ischemia are seen in the right middle cranial fossa at the temporal tip, superior temporal gyrus anteriorly as well as small patchy foci in the right parietal lobe and right occipital lobe. This is associated with some mild edema. No midline shift or mass effect. No extra-axial collection. Small focus of encephalomalacia is seen in the left occipital lobe; no acute ischemia on the left. Mild changes of chronic microvascular ischemia in the periventricular white matter. In the mesial temporal lobe on the right there is a focus of blooming artifact. CT angiogram shows no corresponding vascular lesion. T2 prolongation in the central alessio from chronic microvascular ischemia. Ventricles: Normal. Major Intracranial Vessels: Correlate with recent CT angiogram. Flow voids are unremarkable. Sinuses: Mild mucosal thickening ethmoid sinuses. Mastoids: Clear MRI/Brain without Contrast IMPRESSION: Patchy foci of acute ischemia on the right side. Consider thromboembolic proce ss. See above description. Reading Location: [id number]
[2025-01-19 09:04] LABS: Anion Gap 11 (5-15); BUN 12 mg/dL (4-19); BUN/Creat Ratio 19.1 RATIO (10-20); Calcium,Total 8.8 mg/dL (7.6-11.0); Carbon Dioxide 23.3 mmol/L (21.0-32.0); Chloride 105 mmol/L (98-108); Cholesterol 159 mg/dL (<=200); Estimated Creatinine Clearance 86.98 ml/min (50-250); Glucose 84 mg/dL (70-99); Low Density Lipoprotein Calc. 100 mg/dL; Magnesium 2.2 mg/dL (1.5-2.2); Potassium 3.5 mmol/L (3.3-5.1); Triglycerides 88 mg/dL; Very Low Density Lipoprotein 18 mg/dL (5-40); cholesterol:hdl ratio screen 3.81
[2025-01-19] MEDS: Nicotine (PBKC) 14 MG Patch TD (09:39)
--- NOTE | 2025-01-19 11:33 | CASEMGMT ---
Social Work Primary Care Doctor: Dr. Arellano Speciality doctors: none Insurance: [facility] and Medicaid [facility]: [facility] Advanced directives: Patient does not have an AD/LW. SW provided the patient a copy of the POA/LW packet and rack card. LNOK: Marital/Social History: with 3 daughter. The daughters live in the area. Living Situation: Patient lives at home with his . He has 2 steps into the home. ADL's/Prior level of functioning: Patient was independent with his ADL's. Transportation: Patient still drives. 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 Patient also enjoys fishing. Mental Health: none Substance abuse history: Patient used to drink a lot 40 years ago. Assessment: SW spoke with the patient and his . Patient had a previous stroke 2 years ago. Patient lives with his and his 3 daughters live in the area. Patient does not have an AD/LW. BOSSMAN provided the patient a copy of the POA/LW packet and rack card. Patient still drives and is active with golfing and fishing. [employer]
--- NOTE | 2025-01-19 13:45 | STROKE.CONS ---
Assessment and Plan: Stroke Assessment/Plan CHARAN GARCIA is a 64 M with a history of HTN smoking who presents for evaluation of aphasia and numbness. Neurological examination shows NIH 3. Speech is improving. Neuroimaging shows R sided multifocal infarcts. Pattern suggests embolic infarcts. TTE was completed. Waiting on results. CTA with no sig stenosis or occlusion. Etiology - cryptogenic for now. Pattern is embolic. - Anti-platelet medication: Aspirin 81 mg daily - Occupational/ Physical therapy consults - NPO until swallow evaluation. IVF until able to take po - DVT prophylaxis with SCDs and heparin SQ - Vascular risk factor modification. The following are the recommended guidelines: LDL Goal < 70 - lipitor Smoking Cessation - we discussed this. He is trying. Follow up with PCP for possible medication assistance Diabetes Management - NA. A1C is ok,. long term acute care registered nurse blood pressure control should achieve <130/80 mmHg. BP management should aim to achieve fci contorl in a reasonable amount of time, taking into consideration the individual patient's requirements and characteristics. He will need BP cuff. Told to keep diary and check BP three times a day for next three weeks. Weight Management: Goal for BMI is 18.5 -24.9 kg/m2 Alcohol: No more than 2 drinks/day for men or 1 drink/day for non- women - Promote lifestyle modification: weight control, physical activity, moderation of alcohol intake, moderate sodium intake. - Cardiology - TTE results are pending. 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 Start with 30 days. IF need to can proceed with [facility] outpatient. - Referral to sleep medicine for sleep apnea testing. Followup with PCP in 1-2 weeks, and in Neurology clinic in 6-12 weeks HPI Consult Data Date of Consult: 01/19/25 HPI Narrative HPI Narrative: CHARAN GARCIA, is a 64 M who presents [facility] Medical History (Updated 01/19/25 @ 13:[address] Yris Rao MD) Hyperlipidemia HTN (hypertension) CVA (cerebral vascular accident) Hiatal hernia GERD (gastroesophageal reflux disease) Home Medications ?Medication ?Instructions ?Recorded ?Last Taken ?Type esomeprazole magnesium 20 mg 20 mg PO Q12H gerd 11/26/22 11/26/22 History capsule,delayed release cholecalciferol (vitamin D3) 125 125 mcg PO QDAY 07/20/24 Unknown History mcg (5,000 unit) capsule Held on 01/18/25. Instructions: Order Completed clopidogrel 75 mg tablet (Plavix) 75 mg PO QDAY 07/20/24 Unknown History losartan 100 mg tablet 100 mg PO QDAY 07/20/24 Unknown History naproxen sodium 220 mg capsule 220 mg PO Q12H PRN pain 07/20/24 Unknown History (Aleve) rosuvastatin 10 mg tablet (Crestor) 10 mg PO QDAY 07/20/24 Unknown History meloxicam 15 mg tablet 15 mg PO DAILY 01/18/25 Unknown History prednisone 20 mg tablet 20 mg PO DAILY 01/18/25 Unknown History Allergy/AdvReac Type Severity Reaction Status Date / Time No Known Allergies Allergy Verified 11/26/22 12:00 Family History (Updated 11/26/22 @ 16:[address] Charan Martinez MD) Mother CVA (cerebral vascular accident) Surgical History (Updated 11/26/22 @ 15:30 by Quynh Goldberg) History of ankle surgery Social History (Updated 07/20/24 @ 14:18 by Erin Guerrero) Smoking Status: Unknown if ever smoked substance use type: marijuana Vital Signs Vital Signs Vital Signs: 01/18/25 16:57 01/18/25 17:10 01/18/25 17:14 Temperature 97.9 F 98.6 F Temperature Source Oral Oral Pulse Rate 97 86 Pulse Strength Respiratory Rate 16 18 Respiratory Effort Respiratory Depth Respiratory Pattern Blood Pressure 174/97 H 168/76 H Blood Pressure Mean 122 106 Blood Pressure Source Blood Pressure Position Blood Pressure Location Pulse Ox 99 98 Oxygen Delivery Method Room Air Room Air Room Air 01/18/25 17:17 01/18/25 17:29 01/18/25 17:43 Temperature 98.7 F 97.8 F 98.7 F Temperature Source Oral Oral Oral Pulse Rate 85 79 70 Pulse Strength Respiratory Rate 15 18 22 H Respiratory Effort Respiratory Depth Respiratory Pattern Blood Pressure 164/74 H 162/76 H 162/72 H Blood Pressure Mean 104 104 102 Blood Pressure Source Blood Pressure Position Blood Pressure Location Pulse Ox 98 98 97 Oxygen Delivery Method Room Air Room Air Room Air 01/18/25 17:56 01/18/25 17:59 01/18/25 18:15 Temperature 97.8 F 98.4 F 98.1 F Temperature Source Oral Oral Pulse Rate 75 69 77 Pulse Strength Respiratory Rate 13 19 H 19 H Respiratory Effort Respiratory Depth Respiratory Pattern Blood Pressure 162/72 H 169/81 H 175/97 H Blood Pressure Mean 102 110 123 Blood Pressure Source Blood Pressure Position Blood Pressure Location Pulse Ox 96 97 98 Oxygen Delivery Method Room Air Room Air 01/18/25 18:29 01/18/25 19:00 01/18/25 19:00 Temperature 98.1 F 97.4 F L Temperature Source Oral Temporal Pulse Rate 67 70 59 L Pulse Strength Respiratory Rate 23 H 18 Respiratory Effort Respiratory Depth Respiratory Pattern Blood Pressure 158/80 H 166/72 H Blood Pressure Mean 106 103 Blood Pressure Source Monitor Blood Pressure Position Semi-Fowlers Blood Pressure Location Left Arm Pulse Ox 95 98 Oxygen Delivery Method Room Air Room Air 01/18/25 19:26 01/18/25 21:40 01/18/25 23:14 Temperature 97.6 F L 98.4 F Temperature Source Oral Oral Pulse Rate 95 64 Pulse Strength Respiratory Rate 16 15 Respiratory Effort Normal Non-Labored Respiratory Depth Normal Respiratory Pattern Normal Blood Pressure 168/79 H 155/77 H Blood Pressure Mean 108 103 Blood Pressure Source Monitor Monitor Blood Pressure Position Sitting Semi-Fowlers Blood Pressure Location Left Arm Left Arm Pulse Ox 95 94 Oxygen Delivery Method Room Air Room Air Room Air 01/18/25 23:53 01/19/25 03:00 01/19/25 03:08 Temperature 97.7 F L Temperature Source Oral Pulse Rate 61 61 Pulse Strength Respiratory Rate 17 Respiratory Effort Respiratory Depth Respiratory Pattern Blood Pressure 151/84 H Blood Pressure Mean 106 Blood Pressure Source Monitor Blood Pressure Position Semi-Fowlers Blood Pressure Location Left Arm Pulse Ox 96 94 Oxygen Delivery Method Room Air Room Air 01/19/25 03:42 01/19/25 06:46 01/19/25 07:00 Temperature 97.8 F Temperature Source Oral Pulse Rate 61 58 L Pulse Strength Respiratory Rate 15 Respiratory Effort Normal Non-Labored Respiratory Depth Normal Respiratory Pattern Normal Blood Pressure 165/79 H Blood Pressure Mean 107 Blood Pressure Source Monitor Blood Pressure Position Semi-Fowlers Blood Pressure Location Left Arm Pulse Ox 95 Oxygen Delivery Method Room Air Room Air 01/19/25 07:43 01/19/25 09:34 01/19/25 10:00 Temperature 98.2 F Temperature Source Oral Pulse Rate 62 Pulse Strength Normal (2+) Respiratory Rate 18 Respiratory Effort Respiratory Depth Respiratory Pattern Blood Pressure 176/86 H Blood Pressure Mean 116 Blood Pressure Source Monitor Blood Pressure Position Semi-Fowlers Blood Pressure Location Right Arm Pulse Ox 95 95 Oxygen Delivery Method Room Air Room Air Weight Weight: 67.7 kg Body Mass Index (BMI) 22.0 EEG Results Procedure Details EEG Procedure Details: CHARAN GARCIA is a 64 year old M with a past medical history of , who presents for evaluation of Electroencephalogram on DATE at TIME Lab / Micro Data 01/19/25 07:40 01/19/25 07:40 Labs: Laboratory Results - last 24 hr 01/18/25 16:59: WBC 7.0, RBC 4.68, Hgb 16.1, Hct 45.0, MCV 96.2 H, MCH 34.4 H, MCHC 35.8, RDW Std Deviation 47.9 H, RDW Coeff of Birdie 13.5, Plt Count 293, MPV 9.5, Immature Gran % (Auto) 0.100, Neut % (Auto) 87.7 H, Lymph % (Auto) 9.2 L, Terrell % (Auto) 2.7, Eos % (Auto) 0.0, Baso % (Auto) 0.3, Absolute Neuts (auto) 6.2, Absolute Lymphs (auto) 0.65 L, Nucleated RBC % 0, PT 12.9, INR 1.0, APTT 29.8, Sodium 139, Potassium 3.7, Chloride 105, Carbon Dioxide 19.6 L, Anion Gap 14, BUN 14, Creatinine 0.76, Estim Creat Clear Calc 89.93, Est GFR (MDRD) Non-Af 99, BUN/Creatinine Ratio 18.7, Glucose 119 H, Calcium 9.2, Troponin T High Sens 6 01/18/25 19:44: Troponin T Hi Sens 2 Hr 10 01/18/25 21:21: Troponin T Hi Sens 4Hr 8 01/19/25 07:40: WBC 7.2, RBC 4.43 L, Hgb 14.8, Hct 41.8, MCV 94.4 H, MCH 33.4 H, MCHC 35.4, RDW Std Deviation 46.8 H, RDW Coeff of Birdie 13.4, Plt Count 236, MPV 9.5, Immature Gran % (Auto) 0.100, Neut % (Auto) 68.4, Lymph % (Auto) 19.7, Terrell % (Auto) 8.5, Eos % (Auto) 2.7, Baso % (Auto) 0.6, Absolute Neuts (auto) 4.9, Absolute Lymphs (auto) 1.41, Nucleated RBC % 0, Sodium 140, Potassium 3.5, Chloride 105, Carbon Dioxide 23.3, Anion Gap 11, BUN 12, Creatinine 0.64 L, Estim Creat Clear Calc 86.98, Est GFR (MDRD) Non-Af 104, BUN/Creatinine Ratio 19.1, Glucose 84, Hemoglobin A1c 5.3, Calcium 8.8, Magnesium 2.2, Triglycerides 88, Cholesterol 159, LDL Cholesterol, Calc 100, VLDL Cholesterol 18, HDL Cholesterol 42, Cholesterol/HDL Ratio 3.81, TSH 2.210 Imaging Radiology Impression Brain CT 01/18/25 16:59 IMPRESSION: 1. 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 2. No acute intracranial hemorrhage/hemorrhagic conversion, or mass-effect. 3. No intracranial or cervical large vessel arterial occlusion or significant stenosis. Reading Location: -[id number] Head/Neck CTA 01/18/25 17:00 IMPRESSION: 1. 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 2. No acute intracranial hemorrhage/hemorrhagic conversion, or mass-effect. 3. No intracranial or cervical large vessel arterial occlusion or significant stenosis. Reading Location: -[id number] Brain MRI 01/19/25 09:00 IMPRESSION: Patchy foci of acute ischemia on the right side. Consider thromboembolic process. See above description. Reading Location: [id number] Active Medications Active Medications Active Medications: Current Medications Generic Name Dose Route Start Last Admin Trade Name Freq PRN Reason Stop Dose Admin Acetaminophen 650 mg 01/18/25 19:28 Acetaminophen 325 Mg Tablet PO Q6H PRN PRN Pain 1-10 Or Fever >100.7 Albuterol Sulfate 2.5 mg 01/18/25 19:28 Albuterol 2.5 Mg/3 Ml Vial.Neb. INHALATION Q2H PRN PRN SOB &/OR WHEEZING Aspirin 81 mg 01/19/25 08:00 01/19/25 09:39 Aspirin 81 Mg Tab.Chew PO 81 mg BREAKFAST BLAS Administration Atorvastatin Calcium 80 mg 01/18/25 22:00 01/18/25 21:29 Atorvastatin Calcium 80 Mg Tablet PO 80 mg QHS BLAS Administration Hydralazine HCl 5 mg 01/18/25 19:28 Hydralazine 20 Mg/Ml Vial IV 01/19/25 19:30 Q30M PRN maintain BP parameters with HR <60 Labetalol HCl 10 - 20 mg 01/18/25 19:28 Labetalol 20 Mg/4 Ml Vial IV 01/19/25 19:30 Q10M PRN PRN maintain BP parameters with HR >/=60 Lorazepam 0.5 mg 01/18/25 21:00 Lorazepam 0.5 Mg Tablet PO X1 PRN Anxiety with MRI Melatonin 10 mg 01/18/25 19:28 Melatonin 10 Mg Tablet PO QHS PRN PRN INSOMNIA Nicotine 14 mg 01/18/25 20:00 01/19/25 09:39 Nicotine (Pbkc) 14 Mg Patch TD 14 mg DAILY BLAS Administration Ondansetron HCl 4 mg 01/18/25 19:28 Ondansetron 4 Mg/2 Ml Vial IV Q8H PRN PRN NAUSEA/VOMITING Pantoprazole Sodium 20 mg 01/18/25 22:00 01/19/25 09:39 Pantoprazole Sodium 20 Mg Tablet PO 20 mg BID BLAS Administration Senna/Docusate Sodium 2 tablet 01/18/25 19:28 Senna/Docusate Sodium 1 Tablet PO BID PRN PRN Constipation Sodium Chloride 10 - 40 ml 01/18/25 18:58 01/18/25 21:29 0.9% Saline Lock 10 Ml Syringe IV 10 ml UD PRN Administration SALINE FLUSH NIHSS NIHSS Nursing Documentation NIHSS Nursing Documentation: NIHSS: Ischemic Stroke/TIA Start: 01/18/25 19:30 Text: For PCU Patients: NIH and Neuro Check every 4 Status: Active hours, PRN and with change in RN caregiver. Freq: [id number] Protocol: Activity Type Activity Date Activity User E-sign Co-sign Detail Recorded Client Recorded Date Recorded By Document 01/19/25 10:00 CD [id number] 01/19/25 13:32 CD 01/19/25 10:00 NIH Stroke Scale [NIHSS] A score of 0 is normal or asymptomatic . Total possible score is 42. Inpatient: RN or Physician to activate a stroke alert for onset of new stroke symptoms or with NIHSS increase >/= 3 points. Following change in neurological status, NIHSS will be performed per physician order or more frequently PRN. -1a. Level of Consciousness 0 - Alert; keenly responsive -1b. LOC Questions 0 - Answers BOTH questions correctly -1c. LOC Commands 0 - Performs BOTH tasks correctly -2. Best Gaze 0 - Normal -3. Visual 0 - No visual loss -4. Facial Palsy 1 - Minor paralysis ( flattened nasolabial fold , asymmetry on smiling) -5a. Left Arm 0 - No drift; arm holds 90 ( or 45) degrees for full 10 seconds -5b. Right Arm 0 - No drift; arm holds 90 ( or 45) degrees for full 10 seconds -6a. Left Leg 0 - No drift; leg holds 30- degree position for full 5 seconds -6b. Right Leg 0 - No drift; leg holds 30- degree position for full 5 seconds -7. Limb Ataxia 1 - Present in 1 limb -8. Sensory 0 - Normal; no sensory loss -9. Best Language 0 - No aphasia; normal -10. Dysarthria 0 - Normal -11. Extinction and Inattention 0 - No abnormality -Total 2 Query Text:A score of 0 is normal or asymptomatic. Total possible score is 42 . ED: Notify Physician for NIHSS increase by > / = 3 points. Inpatient: RN or Physician to activate a stroke alert for NIHSS increase of > / = 3 points. Coma Scale [Assess] -Eye Opening Spontaneous -Motor Obeys Commands -Verbal Oriented [Total] -Coma Scale Total 15
--- NOTE | 2025-01-19 14:05 | CASEMGMT ---
Social Work SW spoke with the patient. Patient wants to discharge home with his . OT recommended OP OT. Patient was agreeable with attending OP OT. Patient wanted his script faxed to [facility]. SW faxed his script to [facility] and gave the script to the patient. [facility] to call the patient to schedule appt. JESSENIA Cates
--- NOTE | 2025-01-19 15:16 | PCM.DC ---
Discharge Instructions DC O2, CPAP, BIPAP needs Home O2 Discharge instructions: No Dressing / Incision Discharge Activity: Return to Normal Activity Weight Bearing Status: Full weight bearing Follow Up Care Test Results: Test results from this visit will be discussed in further detail at your follow-up appointment, if applicable. Discharge Plan Admission Admit Date/Time: 01/18/25 18:35 Primary Reason for Your Visit: Ischemic stroke Attending Provider: Marky Lund Primary Care Provider: Anne Arellano Consulting Providers: Marcos Rogers; Abeba Velasco; Rosa M Tiwari; Shakira Dunn; Jane Sidhu; Damian Mullen; Rachel Stone; Reno Hernandez; João Umanzor; Bhaskar Mendez; Nel Cadet; Cheyanne Thompson; Jagjit Damon; Madie Juarez; Laura Serrano; Greta Ward; Aaron Maloney; Aliza Real; Xander Beatty; Bhavana Reyes; Obi Zazueta; Yris Rao Instructions Additional Instructions / Restrictions: Do not take any Aleve, Advil, or extra aspirin for pain while you are on Plavix and aspirin. Do not take meloxicam. You may take Tylenol for pain. Do not smoke. Discharge Orders/Prescriptions Prescriptions: New atorvastatin 80 mg Tablet 80 mg PO QHS Qty: 30 0RF aspirin 81 mg Tablet,Chewable 81 mg PO BREAKFAST Qty: 0 0RF clopidogrel [Plavix] 75 mg tablet 75 mg PO DAILY Qty: 21 0RF Rx Instructions: Start on 01/19/2025 nicotine 14 mg/24 hr Patch 24 Hour 14 mg transdermal DAILY Qty: 30 0RF hydrochlorothiazide 25 mg tablet 25 mg PO DAILY Qty: 30 0RF Rx Instructions: One half tab daily starting 01/20/2025 Continued losartan 100 mg tablet 100 mg PO QDAY cholecalciferol (vitamin D3) 125 mcg (5,000 unit) capsule 125 mcg PO QDAY esomeprazole magnesium 20 mg capsule,delayed release(DR/EC) 20 mg PO Q12H prednisone 20 mg tablet 20 mg PO DAILY Discontinued clopidogrel [Plavix] 75 mg tablet 75 mg PO QDAY rosuvastatin [Crestor] 10 mg tablet 10 mg PO QDAY naproxen sodium [Aleve] 220 mg capsule 220 mg PO Q12H PRN (Reason: pain) meloxicam 15 mg tablet 15 mg PO DAILY Other Ambulatory Orders: 30 Day Event Recorder Preventi (Routine) Timeframe: 1 Day Facility: [facility] - Location: Cardiovascular Services Ordered By: Dr. Marky Lund Referrals / Follow Up: Anne Arellano MD [Primary Care Provider] - In 1 Week (Have your blood pressure rechecked, neurology has recommended the sleep study-this will have to be ordered by your primary care provider) Disposition Disposition (needs filled in before D/C Order can be placed): Home, Self Care
--- NOTE | 2025-01-19 16:02 | DS.PCM_ITS ---
Providers Date of Admission: 01/18/25 Date of Discharge: 01/19/25 Primary Care Physician: Anne Arellano MD Consultations 01/18/25 19:30 Consult: Tele-Neurology Routine Consulting Provider: [facility] Reason for Consult: Acute Ischemic Stroke/TIA EMERGENT Consult: No MD Notified: Yes Date Notified: 01/18/25 Time Notified: 21:35 Method of Notification: Answering Service Nursing Unit Staff Notify [facility] of Tele-Neurology Consult: Yes Reason For Visit: CVA Diagnosis Discharge Diagnosis (1) Acute CVA (cerebrovascular accident): Status: Acute Code(s): I63.9 - Cerebral infarction, unspecified Plan 1. Acute ischemic strokes-possibly embolic in nature #2 type 2 diabetes #3 hyperlipidemia #4 essential hypertension Medications at Discharge Home Medications esomeprazole magnesium 20 mg capsule,delayed release 20 mg PO Q12H gerd 11/26/22 cholecalciferol (vitamin D3) 125 mcg (5,000 unit) capsule 125 mcg PO QDAY 07/20/24 losartan 100 mg tablet 100 mg PO QDAY 07/20/24 prednisone 20 mg tablet 20 mg PO DAILY 01/18/25 aspirin 81 mg chewable tablet 81 mg PO BREAKFAST #0 tabs 01/19/25 atorvastatin 80 mg tablet 80 mg PO QHS #30 tabs 01/19/25 clopidogrel 75 mg tablet (Plavix) 75 mg PO DAILY #21 tabs 01/19/25 hydrochlorothiazide 25 mg tablet 25 mg PO DAILY #30 tabs 01/19/25 nicotine 14 mg/24 hr daily transdermal patch 14 mg transdermal DAILY #30 ea 01/19/25 Hospital Course Operations None Procedures 2-D Echocardiogram Summary of Care Provided Minutes Spent on Discharge: 31 Hospital Course: This 64-year-old white male was seen in the emergency room at [facility] with complaints of acute onset of speech difficulties and left facial drooping. Stroke team was called and the patient's NIH was noted to be 4, CTA of the head and neck was performed which was unremarkable, CT of the brain was performed and there was evidence of multiple scattered small areas of presumed embolic acute infarct involving the right anterior right temporal lobe and the right posterior frontotemporal lobes in the left occipital lobe. Teleneurology did not recommend tenecteplase. Patient was admitted to PCU, an MRI of the brain was obtained which indicated patchy foci of acute ischemia on the right side-consider thromboembolic process in the right middle cranial fossa at the temporal lip, superior temporal gyrus anteriorly and the right parietal lobe in the right occipital lobe.. There was a small focus of encephalomalacia seen in the left occipital lobe, no acute ischemia was noted on the left. Patient was seen by PT and OT, he was treated during his hospitalization with 81 mg aspirin and a statin. Conversations were carried out with the patient concerning cessation of smoking, patient agreed to try nicotine patch as an outpatient and refrain from smoking. On 01/19/2025, patient was seen and examined: On examination he appeared in good health and spirits. Vital signs as documented. Skin warm and dry and without overt rashes. Neck without JVD, neck was supple, trachea midline, thyroid was normal. Lungs clear bilaterally, normal air movement was noted. Heart exam notable for regular rhythm, normal sounds and absence of murmurs, rubs or gallops. Abdomen unremarkable and without evidence of organomegaly, masses, or abdominal aortic enlargement. Bowel sounds are present, abdomen is not distended. Extremities nonedematous, no cyanosis was noted, no clubbing was noted. Neuro: Cranial nerves II through XII are grossly intact, no focal motor deficits were noted, sensation to light touch and pinprick intact, motor exam 5/5 throughout. Psych: Patient is alert and oriented x3, he does not appear anxious or depressed, he does not appear agitated. Patient was discharged home in stable condition on 01/19/2025, it was arranged that the patient have an outpatient 30-day event monitor placed, patient was discharged on dual antiplatelet therapy for 21 days and then aspirin afterwards. Weight / BMI Weight Weight: 67.7 kg Body Mass Index (BMI) 22.0 ABG / Lab / Microbiology Data 01/19/25 07:40 01/19/25 07:40 Laboratory: Laboratory Results - last 24 hr 01/18/25 16:59: WBC 7.0, RBC 4.68, Hgb 16.1, Hct 45.0, MCV 96.2 H, MCH 34.4 H, MCHC 35.8, RDW Std Deviation 47.9 H, RDW Coeff of Birdie 13.5, Plt Count 293, MPV 9.5, Immature Gran % (Auto) 0.100, Neut % (Auto) 87.7 H, Lymph % (Auto) 9.2 L, [place] % (Auto) 2.7, Eos % (Auto) 0.0, Baso % (Auto) 0.3, Absolute Neuts (auto) 6.2, Absolute Lymphs (auto) 0.65 L, Nucleated RBC % 0, PT 12.9, INR 1.0, APTT 29.8, Sodium 139, Potassium 3.7, Chloride 105, Carbon Dioxide 19.6 L, Anion Gap 14, BUN 14, Creatinine 0.76, Estim Creat Clear Calc 89.93, Est GFR (MDRD) Non-Af 99, BUN/Creatinine Ratio 18.7, Glucose 119 H, Calcium 9.2, Troponin T High Sens 6 01/18/25 19:44: Troponin T Hi Sens 2 Hr 10 01/18/25 21:21: Troponin T Hi Sens 4Hr 8 01/19/25 07:40: WBC 7.2, RBC 4.43 L, Hgb 14.8, Hct 41.8, MCV 94.4 H, MCH 33.4 H, MCHC 35.4, RDW Std Deviation 46.8 H, RDW Coeff of Birdie 13.4, Plt Count 236, MPV 9.5, Immature Gran % (Auto) 0.100, Neut % (Auto) 68.4, Lymph % (Auto) 19.7, [place] % (Auto) 8.5, Eos % (Auto) 2.7, Baso % (Auto) 0.6, Absolute Neuts (auto) 4.9, Absolute Lymphs (auto) 1.41, Nucleated RBC % 0, Sodium 140, Potassium 3.5, Chloride 105, Carbon Dioxide 23.3, Anion Gap 11, BUN 12, Creatinine 0.64 L, Estim Creat Clear Calc 86.98, Est GFR (MDRD) Non-Af 104, BUN/Creatinine Ratio 19.1, Glucose 84, Hemoglobin A1c 5.3, Calcium 8.8, Magnesium 2.2, Triglycerides 88, Cholesterol 159, LDL Cholesterol, Calc 100, VLDL Cholesterol 18, HDL Cholesterol 42, Cholesterol/HDL Ratio 3.81, TSH 2.210 Radiography Diagnostic Testing: Radiology Impression Brain CT 01/18/25 16:59 IMPRESSION: 1. 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 2. No acute intracranial hemorrhage/hemorrhagic conversion, or mass-effect. 3. No intracranial or cervical large vessel arterial occlusion or significant stenosis. Reading Location: -[id number] Head/Neck CTA 01/18/25 17:00 IMPRESSION: 1. 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 2. No acute intracranial hemorrhage/hemorrhagic conversion, or mass-effect. 3. No intracranial or cervical large vessel arterial occlusion or significant stenosis. Reading Location: -[id number] Echocardiogram 01/18/25 19:32 Interpretation Summary The estimated ejection fraction is 65 %. No evidence for diastolic dysfunction. Trivial aortic valve insufficiency. Ordering Physician: Yris Rao Referring Physician: Anne Arellano Performed By: Flores Weiss, RDCS, RVT Brain MRI 01/19/25 09:00 IMPRESSION: Patchy foci of acute ischemia on the right side. Consider thromboembolic process. See above description. Reading Location: [id number] D/C Instructions Weight Bearing Status: Full weight bearing DC O2, CPAP, BIPAP Needs Home O2 Discharge instructions: No Meaningful Use Info Meaningful Use Meaningful Use Diagnoses (Choose all that apply): Ischemic CVA CVA Therapy Assessed for PT,OT and/or ST?: Yes Ischemic Stroke Antithrombotic order at d/c?: Yes Dx of Atrial fib/flutter?: No Anticoagulant at discharge?: Yes Statins at discharge?: Yes If patient is 75 or younger, pt will be discharged on HIGH intensity statin.: Y es Primary Dx Acute Ischemic CVA?: Yes IV thrombolytic ordered during stay?: No Reason IV thrombolytic not ordered: Treatment not Indicated Discharge Plan Admission Admit Date/Time: 01/18/25 18:35 Primary Reason for Your Visit: Ischemic stroke Attending Provider: Marky Lund Primary Care Provider: Anne Arellano Consulting Providers: Marcos Rogers; Abeba Velasco; Rosa M Tiwari; Shakira Dunn; Jane Sidhu; Damian Mullen; Rachel Stone; Reno Hernandez; João Umanzor; Bhaskar Mendez; Nel Cadet; Cheyanne Thompson; Jagjit Damon; Madie Juarez; Laura Serrano; Greta Ward; Aaron Maloney; Aliza Real; Xander Beatty; Bhavana Reyes; Obi Zazueta; Yris Rao Instructions Additional Instructions / Restrictions: Do not take any Aleve, Advil, or extra aspirin for pain while you are on Plavix and aspirin. Do not take meloxicam. You may take Tylenol for pain. Do not smoke. Discharge Orders/Prescriptions Prescriptions: New atorvastatin 80 mg Tablet 80 mg PO QHS Qty: 30 0RF aspirin 81 mg Tablet,Chewable 81 mg PO BREAKFAST Qty: 0 0RF clopidogrel [Plavix] 75 mg tablet 75 mg PO DAILY Qty: 21 0RF Rx Instructions: Start on 01/19/2025 nicotine 14 mg/24 hr Patch 24 Hour 14 mg transdermal DAILY Qty: 30 0RF hydrochlorothiazide 25 mg tablet 25 mg PO DAILY Qty: 30 0RF Rx Instructions: One half tab daily starting 01/20/2025 Continued losartan 100 mg tablet 100 mg PO QDAY cholecalciferol (vitamin D3) 125 mcg (5,000 unit) capsule 125 mcg PO QDAY esomeprazole magnesium 20 mg capsule,delayed release(DR/EC) 20 mg PO Q12H prednisone 20 mg tablet 20 mg PO DAILY Discontinued clopidogrel [Plavix] 75 mg tablet 75 mg PO QDAY rosuvastatin [Crestor] 10 mg tablet 10 mg PO QDAY naproxen sodium [Aleve] 220 mg capsule 220 mg PO Q12H PRN (Reason: pain) meloxicam 15 mg tablet 15 mg PO DAILY Other Ambulatory Orders: 30 Day Event Recorder Preventi (Routine) Timeframe: 1 Day Facility: [facility] - Location: Cardiovascular Services Ordered By: Dr. Marky Lund Referrals / Follow Up: Anne Arellano MD [Primary Care Provider] - In 1 Week (Have your blood pressure rechecked, neurology has recommended the sleep study-this will have to be ordered by your primary care provider) Disposition Disposition (needs filled in before D/C Order can be placed): Home, Self Care Charges/Coding Visit Charges Inpatient E&M: 79665 Disch Hosp >30min
--- NOTE | 2025-01-19 17:35 | NURSING ---
pt and given discharge instructions including medications, follow up appointments and all other discharge instructions. pt and deny any further questions or needs at this time. Telemetry removed and placed at nurses station. IV removed with catheter intact, clean dry dressing applied. pt tolerated well. Pt getting dressed then walking out with to waiting vehicle. no further needs.
--- NOTE | 2025-01-20 15:59 | CASEMGMT ---
Social Work SW completed PHQ9 on 01/19/25 but it was entered on 01/20/25. JESSENIA Cates
== END 2025-01-19 17:43 | disposition home or self-care (01) | DRG 66 ==
LOC: ED 17:54 → PCU 18:39
PROVIDERS: Admitting Provider Internal Medicine; Emergency Provider Emergency Medicine; PCP Family Medicine; Visit Provider Internal Medicine
DX: I63.9 Cerebral infarction, unspecified (principal); E78.5 Hyperlipidemia, unspecified; I10 Essential (primary) hypertension; F17.200 Nicotine dependence, unspecified, uncomplicated; K21.9 Gastro-esophageal reflux disease without esophagitis; M25.532 Pain in left wrist; R29.810 Facial weakness; R29.704 NIHSS score 4; R47.81 Slurred speech; R29.898 Other symptoms and signs involving the musculoskeletal system; Z91.148 Patient's other noncompliance with medication regimen for other reason; Z79.02 Long term (current) use of antithrombotics/antiplatelets; Z79.899 Other long term (current) drug therapy; Z86.73 Personal history of transient ischemic attack (TIA), and cerebral infarction without residual deficits
CPT/HCPCS: 36415; 70450; 70496; 70498; 70551; 80048; 80061; 83036; 83735; 84443; 84484; 85025; 85610; 85730; 92610; 93005; 93306; 94762; 97162; 97166; 97802; 99285; Q9967; A4216

== ENCOUNTER 2025-03-08 14:00 | Outpatient (RCR) | payer MEDICARE, SELFPAY ==
--- NOTE | 2025-02-02 15:37 | HP.OTEVAL_ITS ---
Patient's Visit Information Visit Information Visit Information: CHARAN GARCIA is a 64 year old M, referred to Occupational Therapy by Dr. Marky Lund DO, with a diagnosis of CVA. Date of Evaluation: 02/02/25 Occupational Therapist: JUSTO Gonzalez/Sugar, CHT Subjective Subjective: This 64 year old male was seen for OT eval with dx of CVA pt suffered a stroke first week of Jan. ( MRI was on 01/19/25) pt states he woke up with his left hand feeling tingling and intermediately. pt sates he is right handed pt states he has issues with slurred speech and limited use of left hand. pt states he feels his hand is weak and limited with movement. This makes ADLs and IADLs challenging. does a lot but he typically will do cooking and dishes and can not do that at this time. pt states he has been retired for 5 years pt states he helps family with yard mtg and now can not do so. ADLs Comments: pt states he has not been able to use his left hand with any daily tasks. ROM ROM Comments: pt demo delay in left digit grasp ( flexion and ext of digits) thumb opposition left is limited to MF thumb RA trace Strength Elbow: biceps right 29# left 24# triceps right 31# left 24# Financial Manager: right 85# left 35# Lateral Pinch: right 12# left unable Tripod Pinch: right 12# left unable Sensation Thumb: right 2.83 normal /left 3.22 interpretation diminished light touch Index: right 2.83 normal left 3.22 interpretation diminished light touch Middle: right 2.83 normal /left 3.22 interpretation diminished light touch Ring: right 2.83 normal /left 3.22 interpretation diminished light touch Little: right 2.83 normal /left 3.22 interpretation diminished light touch Nine Hole Peg Right: 20.60 seconds Left: 2min Comments: pt demo with decrease in left FMS In-Hand Manipulation Finger to Palm Translation: Normal - Right and Unable - Left Palm to Finger Translation: Normal - Right and Unable - Left Shift: Normal - Right and Unable - Left Rotation: Normal - Right and Unable - Left Quick DASH-Disab of Arm,Shoulder& Hand Quick DASH Score: 61.3625 Goals Goal:: Pt will demo a increase in left fire extinguisher installer strength by 15# or greater to return pt to PLOF by d.c pt will demo a increase in lateral and tripod pinch to 6# or greater to return pt to his PLOF. Goal:: pt will demo the ability to add and abduct digits as precursor to FM tasks in 3 weeks. pt will demo full thumb finger opposition to base of left LF as precursor for FM manipulation tasks in 3 weeks. Goal:: pt will demo the ability to completed the 9 hole peg test in less than 60 sec demo increase in FMS by mustaphac pt will demo the ability to manipulate fasteners and tie shoes IND by kory Goal:: pt will report IND with clothing mtg by d/c Rehabilitation General Assessment: pt demo with a decrease in left UE FMS limiting pts ind with ADLS and IADLs. pt demo need for skilled OT services 2-3x week for 4-6 weeks to assist pt in reaching developmental milestones. Today therapist ed. pt on HEP to initiate AROM, AAROM and fine motor challenges. pt was given handout and demo understanding and agrees to POC. Rehabilitation Potential: Good Anticipated Interventions Anticipated Interventions: A/AAROM/PROM, Strengthening, Fine Motor Coord/Vishnu, Neuro Reeducation, Education re Diagnosis and Home Program Visit Plan Frequency: 2-3x /Week Duration: 2 Months General Plan: improve pts FMS PRE as tolerated TEXT: Thank you for the opportunity to evaluate your patient. For Medicare and Medicare HMO plans, please review the plan of care and approve it. It will need to be FAXED BACK to us at [phone] for Medicare purposes. Please let me know if there are questions or concerns regarding this plan of care. Physician Signature: Date:
--- NOTE | 2025-03-08 15:06 | HP.OTDCSUM_ITS ---
Discharge Summary D/C Summary: It has been my pleasure to treat CHARAN GARCIA under orders from Dr. Marky Lund DO, for the diagnosis of CVA for a total of 11 visit(s). Please see the following information for a summary of their discharge status. Overall Improvement % Improvement: 40 Objective Objective/Function: left manager technical sales: 60# right manager technical sales: 95# left lateral: 4# right lateral: 16# L tripod pinch: 4# R tripod grasp:15# add and abduct digits: difficult-also hard to keep hand flat- fingers flex in when he moves full thumb finger opposition: can do all fingers except for pinki L 9 HPT: 22 sec R 9HPT: 90 seconds, 80 seconds Fasteners- difficult- older shirts/pants are easier to button- has done 2 button indep at home. Pt zipping new coat indep. Can tie shoes indep- does take increased time. Goals Patient Goals: Regain Mobility, Regain Strength, Use Hand/Wrist/Arm Normally Again, Decrease Tingling/Numbness and Be More Independent in ADLS Goal:: Pt will demo a increase in left manager technical sales strength by 15# or greater to return pt to PLOF by d.c pt will demo a increase in lateral and tripod pinch to 6# or greater to return pt to his PLOF. Goal:: pt will demo the ability to add and abduct digits as precursor to FM tasks in 3 weeks. pt will demo full thumb finger opposition to base of left LF as precursor for FM manipulation tasks in 3 weeks. Goal:: pt will demo the ability to completed the 9 hole peg test in less than 60 sec demo increase in FMS by d.c pt will demo the ability to manipulate fasteners and tie shoes IND by d.c Goal:: pt will report IND with clothing mtg by d/c Plan Plan: d/c due to insurance - pt would benefit from further skilled therapy services 1/2x week for 8 weeks D/C Information Discharge Comments: pt would benefit from further skilled therapy services 1-2x week for 8 more weeks but due to insurance. pt request d/c at this time and will see his family to request more OT. d/c sentence: If there are questions or concerns regarding this patient's occupational therapy, please fell free to call me at [phone]. Thank you for the referral of this patient. Sincerely, Karolina Nye OTR/Sugar, CHT
== END 2025-03-08 19:00 | disposition home or self-care (01) ==
LOC: OT 14:00
PROVIDERS: PCP Family Medicine; Referring Provider Internal Medicine; Visit Provider Internal Medicine
DX: Z86.73 Personal history of transient ischemic attack (TIA), and cerebral infarction without residual deficits (principal); R29.898 Other symptoms and signs involving the musculoskeletal system
CPT/HCPCS: 97110; 97112; 97140; 97166; 97530

== ENCOUNTER → 2025-03-24 | Outpatient (CLI) | payer MEDICARE, SELFPAY ==
--- NOTE | 2025-03-24 12:45 | CT_ITS ---
PROCEDURE: CT/Low Dose CT Lung Screening
== END | disposition home or self-care (01) ==
LOC: CT 12:42
PROVIDERS: PCP Family Medicine
DX: Z12.2 Encounter for screening for malignant neoplasm of respiratory organs (principal); F17.210 Nicotine dependence, cigarettes, uncomplicated
CPT/HCPCS: 71271

== ENCOUNTER → 2025-04-14 | Outpatient (CLI) | payer MEDICARE, SELFPAY ==
--- OUTSIDE RECORDS SUMMARY | 2025-04-14 09:59 | XMS RPT_ITS | CCD ---
Author Organization [facility] Care Team Providers Care Station Examiner Name Role Phone Care Physician, No Primary Primary Care Provider Unavailable Pay, Dr. Umanzor Emergency Provider Michelle, Dr. Ly Admit Provider Unavailable Michelle, Dr. Ly Attending Provider Unavailable Dr. Charan Martinez Other Provider Unavailable Dr. Dolores Bustillos Attending Provider MEHRAN NEGRON, DR UMAÑA Attending Unavailabl e Anne Arellano MD Primary Care Provider Dr. Elvis Gonzalez DO Attending Provider Dr. Elvis Gonzalez DO Emergency Provider Anne Arellano MD Referring Provider Dr. Oliver Dang DO Attending Provider Dr. Oliver Dang DO Referring Provider orr ENERGY TRADER-C, Tae Attending Provider Anne Arellano MD Primary Care Provider [phone] Anne Arellano MD Attending Provider Anne Arellano MD Referring Provider Dr. Jorge Villareal DO Emergency Provider Jalen NEGRON, Dr. Arndt Admit Provider Dr. Yris Rao MD Attending Provider Dr. Yris Rao MD Other Provider Marcos Rogers MD Other Provider Unavailable Rod NEGRON, Dr. Us Other Provider Karie NEGRON, Rosa M Other Provider Unavailable Shaun CACERES, Dr. Rosenberg Other Provider Thea NEGRON, Dr. Lara Other Provider Sebas NEGRON, Dr. Salgado Other Provider Chase NEGRON, Dr. Ramos Other Provider Mary NEGRON, Dr. Bojorquez Other Provider Noé NEGRON, Dr. Moyer Other Provider Andrea NEGRON, Dr. Muro Other Provider Dr. Nel Cadet DO Other Provider Jay NEGRON, Cheyanne Other Provider Marisol NEGRON, Dr. Danielson Other Provider Larry NEGRON, Dr. Ramachandran Other Provider Zach NEGRON, Dr. Sanchez Other Provider Sylvia NEGRON, Dr. Greta Hearn Other Provider Haider NEGRON, Dr. Walker Other Provider [phone] Addie NEGRON, Dr. Abrams Other Provider Rogerio NEGRON, Dr. Terrell Other Provider [phone] Eric NEGRON, Dr. Bateman Other Provider Unavailable Marbin NEGRON, Yousef Other Provider Unavailable Dr. Marky Lund DO Attending Provider Amy NEGRON, Dr. Morataya Attending Provider Dr. Marky Lund DO Other Provider Tania Winchester MD Unavailable [phone] NONE, NONE Unavailable Unavailable Anne Arellano MD Unavailable Adan, Chalon Primary Care Unavailable Adan Chaljuan a Referring Unavailable Anne Arellano Attending Unavailable Elvis Gonzalez Attending Unavailabl e Adan, Chalon Primary Care Unavailable Yris Rao Admitting Unavailable Adan, Chalon Primary Care Unavailable Marky Lund Attending Unavailable [place], Marcos Consulting Unavailable Adeli, Amir Consulting Unavailable Hinduja, Rosa M Consulting Unavailable Shaun, Shakira Consulting Unavailable Zha, Jane Consulting Unavailable Sebas, Damian Consulting Unavailable Chase, Rachel Consulting Unavailable Bittar, Reno Consulting Unavailable Umanzor, João Consulting Unavailable Mendez, Bhaskar Consulting Unavailable Franchini, Nel Consulting Unavailable Befareed, Cheyanne Consulting Unavailable Gusler, Jagjit Consulting Unavailable Larry, Madie Consulting Unavailable Ridha, Mohamed Consulting Unavailable Zaghlouleh, Mhd Dhiraj Consulting UnavailAaron Steel Consulting Unavailable Real, Rami Consulting Unavailable Rogerio, Xander Consulting Unavailable Eric, Bhavana Consulting Unavailable Hannamarily, Shasef Consulting Unavailable Yris Rao Consulting Unavailable Adan, Chalon Primary Care Unavailable McMorrow ENERGY TRADER, Tae Referring Unavailable McMorrow ENERGY TRADER, Tae Attending Unavailable Marky Lund Referring Unavailable Adan, Chalon Primary Care Unavailable Marky Lund Attending Unavailable Adan, Chalon Primary Care Unavailable Marky Lund Attending Unavailable Marky Lund Referring Unavailable Friend, Oliver Attending Unavailable Adan, Chalon Referring Unavailable Adan, Chalon Primary Care Unavailable Adan, Chalon Primary Care Unavailable Rafia Reyes Attending UnavailYris Falcon Admitting Unavailable Adan, Chalon Primary Care Unavailable Marky Lund Attending Unavailable Marcos Rogers Consulting Unavailable Adeli, Amir Consulting Unavailable Hinduja, Rosa M Consulting Unavailable Shaun, Shakira Consulting Unavailable Zha, Jane Consulting Unavailable Sebas, Damian Consulting Unavailable Chase, Rachel Consulting Unavailable Bittar, Reno Consulting Unavailable Umanzor, João Consulting Unavailable Mendez, Bhaskar Consulting Unavailable Franchini, Nel Consulting Unavailable Befareed, Cheyanne Consulting Unavailable Gusmyriam, Jagjit Consulting Unavailable Larry, Madie Consulting Unavailable Ridha, Mohamed Consulting Unavailable Zaghlouleh, Mhd Dhiraj Consulting UnavailAaron Steel Consulting Unavailable Real, Rami Consulting Unavailable Rogerio, Xander Consulting Unavailable Eric, Bhavana Consulting Unavailable Hannawi, Yousef Consulting Unavailable Yris Rao Consulting Unavailable Marky Lund Consulting Unavailable Yris Rao Attending Unavailable FriendOliver Referring Unavailable FriendOliver Attending Unavailable Anne Arellano Primary Care Unavailable Anne Arellano Primary Care Unavailable McMorrow Tae ABARCA Attending Unavailable Allergies Allergy Classification Reported Allergen(s) Allergy Type Date of Onset Reaction(s) Facility (1 source) House dust mite Allergy to substance (disorder) [facility] (1 source) Mold Extract Drug Allergy 5 [facility] (1 source) PLAN POLLENS Allergy to substance (disorder) 5 [facility] Medications Current Medications Medication Drug Class(es) Dates Sig (Normalized) Sig (Original) Adult Low Dose Aspirin 81 mg tablet,delayed release (1 source) take 1 tablet by mouth once daily as needed Adult Low Dose Aspirin 81 mg tablet,delayed release 1 tablet by mouth once a day as needed as directed active Raegan Alexandre LPN [facility] atorvastatin 80 mg oral tablet (11 sources) HMG-CoA Reductase Inhibitor Start: 01-19-2025 take 1 tablet by mouth at bedtime Atorvastatin 80 mg Tablet Active 80 mg PO AT BEDTIME 30 0 January 19, 2025 12:00am Start: 11-28-2022 End: 06-12-2024 take 1 tablet by mouth at bedtime Atorvastatin 80 mg Tablet Discontinued 80 mg PO AT BEDTIME 90 0 November 28, 2022 12:00am June 12, 2024 8:28pm cholecalciferol 0.125 mg oral capsule (6 sources) Vitamin D Start: 07-20-2024 take 1 capsule by mouth once daily Cholecalciferol (Vitamin D3) 125 mcg (5,000 unit) capsule Active 125 ug PO daily July 20, 2024 1:00am take 1 tablet by mouth once jia y Vitamin D3 125 mcg (5,000 unit) tablet 1 tablet by mouth once a day In winter active Raegan Alexandre LPN [facility] clopidogrel 75 mg oral tablet (16 sources) P2Y12 Platelet Inhibitor Start: 07-20-2024 End: 01-19-2025 take 1 tablet by mouth once daily Clopidogrel (Plavix) 75 mg tablet Active 75 mg PO DAILY 21 0 January 19, 2025 12:00am Start on 01/19/2025 Start: 11-28-2022 End: 06-12-2024 take 1 tablet by mouth once daily Clopidogrel (Plavix) 75 mg tablet Discontinued 75 mg PO DAILY 21 November 28, 2022 12:00am June 12, 2024 8:29pm esomeprazole 40 mg delayed release oral capsule (9 sources) Proton Pump Inhibitor Start: 06-01-2023 esomeprazole 40 mg oral delayed release capsule Dose : 40 mg = 1 cap(s), Oral, BID, # 30 cap(s), 0 Refill(s) Start Date: 06/01/23 Status: Ordered Start: 11-26-2022 take 1 capsule by mo [facility] every twelve hours Esomeprazole Magnesium 20 mg capsule,delayed release(DR/EC) Active 20 mg PO Q12H November 26, 2022 12:00am gerd Start: 11-26-2022 take 2 capsules by [facility] every twelve hours Esomeprazole Magnesium 20 mg capsule,delayed release(DR/EC) Active 40 mg PO Q12H November 26, 2022 12:00am Start: 11-26-2022 take 20 mg by mouth once daily Esomeprazole Magnesium Active 20 MG PO DAILY November 26, 2022 12:00am take 1 capsule by mo [facility] twice daily esomeprazole magnesium 20 mg capsule,delayed release 1 capsule by mouth twice a day active Raegan Alexandre LPN [facility] hydroCHLOROthiazide 25 mg oral tablet (3 sources) Thiazide Diuretic Start: 01-19-2025 take 1 tablet by mouth once daily Hydrochlorothiazide 25 mg tablet Active 25 mg PO DAILY 30 January 19, 2025 12:00am One half tab daily starting 01/20/2025 hydroCHLOROthiazide 12.5 mg / losartan potassium 50 mg oral tablet (8 sources) Thiazide Diuretic, Angiotensin 2 Receptor Oswaldo Start: 06-01-2023 hydrochlorothiazide-los sandra 12.5-50 mg oral tablet 0 Refill(s) Start Date: 06/01/23 Status: Ordered Start: 11-28-2022 End: 07-20-2024 Losartan-Hydrochlorothiazide 50-12.5 mg tablet Discontinued 1 {tbl} PO DAILY 90 0 November 28, 2022 12:00am July 20, 2024 11:46am Start: 11-28-2022 [facility] Losartan-Hydrochlorothiazide Active 1 TA BLET PO DAILY November 28, 2022 12:00am losartan potassium 100 mg oral tablet (5 sources) Angiotensin 2 Receptor Oswaldo Start: 07-20-2024 take 1 tablet by mouth once daily Losartan 100 mg tablet Active 100 mg PO daily July 20, 2024 1:00am 24 hr nicotine 0.583 mg/hr transdermal system (3 sources) Cholinergic Nicotinic Agonist Start: 01-19-2025 apply 1 dose transdermal route every twenty-four hours Nicotine 14 mg/24 hr Patch 24 Hour Active 14 mg TD DAILY 30 0 January 19, 2025 12:00am nicotine 14 mg/2 4 hr daily transdermal patch 1 patch to skin once a day active Raegan Alexandre LOSS PREVENTION OFFICER [facility] predniSONE 20 mg oral tablet (3 sources) Start: 01-18-2025 take 1 tablet by mouth once daily Prednisone 20 mg tablet Active 20 mg PO DAILY January 18, 2025 12:00am Vitamin D2 50 mcg (2000 intl units) oral capsule (1 source) Start: 06-01-2023 Vitamin D2 50 mcg (2000 intl units) oral capsule Dose : 50 mcg = 1 cap(s), Oral, qDay, with food, # 60 cap(s), 0 Refill(s) Start Date: 06/01/23 Status: Ordered Completed/Discontinued Medications Medication Drug Class(es) Dates Sig (Normalized) Sig (Original) acetaminophen 325 mg / HYDROcodone bitartrate 5 mg oral tablet (7 sources) Opioid Agonist Start: 10-04-2016 End: 11-26-2022 [...] 04, 2016 12:00am November 26, 2022 3:35pm aspirin 81 mg chewable tablet (14 sources) Platelet Aggregation Inhibitor, Nonsteroidal Anti-inflammatory Drug Start: 11-28-2022 End: 01-18-2025 take 1 tablet by mouth at breakfast as needed for pain Aspirin 81 mg Tablet,Chewable Discontinued 81 mg PO WITH BREAKFAST as needed for chest pain June 12, 2024 1:00am January 18, 2025 5:50pm meloxicam 15 mg oral tablet (4 sources) Nonsteroidal Anti-inflammatory Drug Start: 01-18-2025 End: 01-19-2025 take 1 tablet by mouth once daily Meloxicam 15 mg tablet Discontinued 15 mg PO DAILY January 18, 2025 12:00am January 19, 2025 3:19pm naproxen sodium 220 mg oral capsule (19 sources) Nonsteroidal Anti-inflammatory Drug Start: 07-20-2024 End: 01-19-2025 take 1 capsule by mouth every twelve hours as needed for pain Naproxen Sodium (Aleve) 220 mg capsule Discontinued 220 mg PO Q12H as needed for pain July 20, 2024 1:00am January 19, 2025 3:19pm Start: 10-04-2016 End: 11-28-2022 take 1 tablet by mouth twice daily as needed for pain Naproxen 500 MG tablet Discontinued 500 mg PO TWICE A DAY as needed for pain November 26, 2022 12:00am November 28, 2022 10:48am olopatadine 2 mg/ml ophthalmic solution (7 sources) Histamine-1 Receptor Inhibitor Start: 11-26-2022 End: 06-12-2024 take 1 drop(s) into the eye(s) once daily as needed Olopatadine (Eye Allergy Itch Relief) 0.2 % drops Discontinued 1 NMA EACH EYE DAILY as needed for ALLERGIES November 26, 2022 12:00am June 12, 2024 8:30pm PT GETS OTC EYE ALLERGY DROPS FROM [facility] TO USE NEEDED Start: 11-26-2022 take 1 drop(s) into the eye(s) once daily as needed Olopatadine (Eye Allergy Itch Relief) 0.2 % drops Active 1 DRP EACH EYE DAILY November 26, 2022 12:00am PT GETS OTC EYE ALLERGY DROPS FROM [facility] TO USE NEEDED raNITIdine 75 mg oral tablet (7 sources) Histamine-2 Receptor Antagonist Start: 10-04-2016 End: 11-26-2022 take 1 tablet by mouth once daily Ranitidine Hcl (Zantac 75) 75 MG tablet Discontinued 75 mg PO DAILY October 04, 2016 12:00am November 26, 2022 3:35pm On Hold: not taking rosuvastatin calcium 10 mg oral tablet (5 sources) HMG-CoA Reductase Inhibitor Start: 07-20-2024 End: 01-19-2025 take 1 tablet by mouth once daily Rosuvastatin (Crestor) 10 mg tablet Discontinued 10 mg PO daily July 20, 2024 1:00am January 19, 2025 3:20pm Problems Active Problems Problem Classification Problem Date Documented Date Episodic/Chronic Acute cerebrovascular disease (6 sources) Cerebrovascular accident; Translations: [Cerebral infarction, unspecified] Onset: 01-21-2025 01-19-2025 Chronic Esophageal disorders (4 sources) Gastroesophageal reflux disease without esophagitis; Translations: [Gastro-esophageal reflux disease without esophagitis] Onset: 06-01-2023 Chronic Malaise and fatigue (9 sources) Left hemiparesis; Translations: [Weakness] 11-26-2022 Episodic Other nervous system disorders (2 sources) Anesthesia of skin; Translations: [Anesthesia of skin] Onset: 02-28-2025 02-28-2025 Episodic Other non-traumatic joint disorders (1 source) Pain in left wrist; Translations: [Pain in left wrist] Onset: 01-25-2025 Episodic Residual codes; unclassified (7 sources) Tobacco user; Translations: [Tobacco use] 11-26-2022 Episodic Residual codes; unclassified (2 sources) Tobacco use; Translations: [Tobacco use disorder] 11-28-2022 Episodic Substance-related disorders (1 source) Nicotine dependence, cigarettes, uncomplicated; Translations: [Nicotine dependence, cigarettes, uncomplicated] Onset: 03-24-2025 Chronic Transient cerebral ischemia (9 sources) Transient cerebral ischemia; Translations: [Transient cerebral ischemic attack, unspecified] 11-26-2022 Chronic Unclassified (2 sources) Have your blood pressure rechecked, neurology has recommended the sleep study-this will have to be ordered by your primary care provider Past or Other Problems Problem Classification Problem Date Documented Da te Episodic/Chronic Nonspecific chest pain (1 source) Chest pain, [...] malignant neoplasm of prostate] Onset: 08-31-2024 Episodic Results Test Name Value Interpretation Reference Range Facility Low Dose CT Lung Screeningon 03-24-[address] Lung Screening [facility] [address] [place] [address] Lung Screening MR#: [id number] Acct: [id number] Name: CHARAN GARCIA Rep #: [id number] : 1960 M 65 From: Hermann Vazquez DO PCP: Dr. Anne Arellano MD Status: REG CLI Study: Low Dose CT Lung Screening Date of Exam: 03/24 Exam# [id number] Ordering Dr: Tae Gardiner NP ENERGY TRADER -C PROCEDURE: LOW DOSE CT LUNG SCREENING 03/24/2025 REASON FOR EXAM: TOBACCO ABUSE TECHNIQUE: Procedure Code: CTLUNGSCREEN Modality: CT Procedure: LOW DOSE CT LUNG SCREENING Coronal and Sagittal reconstruction series were provided. One or more dose reduction techniques were used (e.g., Automated exposure control, adjustment of the mA and/or kV according to patient size, use of iterative reconstruction technique). REFERENCE LINK: [employer] Lung-RADS RADIATION DOSE SUMMARY: CTDlvol: 3.02 mGy DLP: 108.72 mGycm COMPARISON: August 23, 2024 2 FINDINGS: PULMONARY NODULES: (Only nodules >3mm are reported) Nodules described below are on series 2 unless otherwise specified. Pulmonary Nodules: The cavitary, superior segment nodule measures 4.4 x 2.7 cm comparison to 2.3 x 1.9 cm on previous examination with increased soft tissue rind. Nodular 9 x 11 mm anteromedial soft tissue projection. Additional, smaller, sub 4 mm solid nodules are unchanged. Hardware:None. Lymph Nodes:Shotty mediastinal lymph nodes. Heart and Vasculature:No cardiomegaly or pericardial effusion.Atherosclerot ic calcifications of the thoracic aorta. Thoracic aorta and pulmonary arteries have normal contours; noncontrast technique limits evaluation. Coronary Artery Calcifications: Present Lungs and Airways: Emphysematous changes throughout. Pleura:No pleural effusion or pneumothorax. Upper Abdomen:Hepatic steatosis. Bones:Degenerative changes of the thoracic spine. No suspicious lytic or blastic lesion. CT/Low Dose CT Lung Screening IMPRESSION: Enlarging cavitary right lower lobe nodule. Coronary artery calcification (CAC) is present Lung-RADS Category: 4B VERY SUSPICIOUS. RECOMMEND DIAGNOSTIC CHEST CT; PET/CT MAY BE CONSIDERED IF >=8MM SOLID NODULE OR SOLID COMPONENT; TISSUE SAMPLING; AND/OR REFERRAL FOR CLINICAL EVALUATION. IF AIRWAY NODULE THEN REFER FOR CLINICAL EVALUATION Other Significant Findings: Emphysematous disease. In compliance with [place] State Law Act 112, an automated letter has been sent to this patient notifying them that there are findings on this exam that warrant further discussion with their healthcare provider. Reading Location: [id number] CC: Tae ABARCA ENERGY TRADER-C McMorrow; Dr. Anne Arellano MD Digital Color Press Operator: Signed Normal [facility] OT D/C Summaryon 03-08-2025 OT D/C Summary [facility] Occupational Therapy [facility] [address] [place] [address] [address] [place] [address] / REHABILITATION SERVICES DISCHARGE SUMMARY MR#: [id number] Acct: [id number] Name: CHARAN GARCIA Rep #: [id number] : 1960 65 From: Karolina KEMP/Sugar, T Referring Dr.: Dr. Marky Lund DO Status: REG RCR Eval Date: Discharge Date: Discharge Summary D/C Summary: It has been my pleasure to treat CHARAN GARCIA under orders from Dr. Marky Lund DO, for the diagnosis of CVA for a total of 11 visit(s). Please see the following information for a summary of their discharge status. Overall Improvement % Improvement: 40 Objective Objective/Function: left supervisor correspondence section: 60# right supervisor correspondence section: 95# left lateral: 4# right lateral: 16# L tripod pinch: 4# R tripod grasp:15# add and abduct digits: difficult-also hard to keep hand flat- fingers flex in when he moves full thumb finger opposition: can do all fingers except for pinki L 9 HPT: 22 sec R 9HPT: 90 seconds, 80 seconds Fasteners- difficult- older shirts/pants are easier to button- has done 2 button indep at home. Pt zipping new coat indep. Can tie shoes indep- does take increased time. Goals Patient Goals: Regain Mobility, Regain Strength, Use Hand/Wrist/Arm Normally Again, Decrease Tingling/Numbness and Be More Independent in ADLS Goal:: Pt will demo a increase in left supervisor correspondence section strength by 15# or greater to return pt to PLOF by d.c pt will demo a increase in lateral and tripod pinch to 6# or greater to return pt to his PLOF. Goal:: pt will demo the ability to add and abduct digits as precursor to FM tasks in 3 weeks. pt will demo full thumb finger opposition to base of left LF as precursor for FM manipulation tasks in 3 weeks. Goal:: pt will demo the ability to completed the 9 hole peg test in less than 60 sec demo increase in FMS by d.c pt will demo the ability to manipulate fasteners and tie shoes IND by d.c Goal:: pt will report IND with clothing mtg by d/c Plan Plan: d/c due to insurance - pt would benefit from further skilled therapy services 1/2x week for 8 weeks D/C Information Discharge Comments: pt would benefit from further skilled therapy services 1-2x week for 8 more weeks but due to insurance. pt request d/c at this time and will see his family to request more OT. d/c sentence: If there are questions or concerns regarding this patient's occupational therapy, please fell free to call me at [phone]. Thank you for the referral of this patient. Sincerely, Karolina Nye, OTR/L, CHT 03/08/25 0286 CC: Dr. Anne Arellano MD; Dr. Marky Lund, DO MK Signed Normal [facility] Relevant diagnostic tests/la boratory data Narrativeon 02-28-2025 Fall risk assessment no ELIZABETH [employer] Work Phone: MEDS REVIEW Documentation of current medications (procedure) [employer] Work Phone: MEDS REVIEWD Medications reviewed with changes [employer] Work Phone: Relevant diagnostic tests/la boratory data Narrativeon 10-13-2025 MEDS REVIEWD Medications reviewed with changes [employer]. Work Phone: OT General Evaluationon 01-16 OT General Evaluation [facility] Occupational Therapy [facility] [address] [place] [address] / REHABILITATION SERVICES INITIAL EVALUATION MR#: [id number] Acct: [id number] Name: CHARAN GARCIA Rep #: [id number] : 1960 64 From: Karolina KEMP/SRINIVAS Wooten Referring Dr.: Dr. Marky Lund DO Status: REG RCR Insurance: [employer] Eval Date: SELF PAY INSURANCE Patient's Visit Information Visit Information Visit Information: CHARAN GARCIA is a 64 year old M, referred to Occupational Therapy by Dr. Marky Lund DO, with a diagnosis of CVA. Date of Evaluation: 02/02/25 Occupational Therapist: JUSTO Gonzalez/Sugar, SRINIVAS Subjective Subjective: This 64 year old male was seen for OT eval with dx of CVA pt suffered a stroke first week of Jan. ( MRI was on 01/19/25) pt states he woke up with his left hand feeling tingling and intermediately. pt sates he is right handed pt states he has issues with slurred speech and limited use of left hand. pt states he feels his hand is weak and limited with movement. This makes ADLs and IADLs challenging. does a lot but he typically will do cooking and dishes and can not do that at this time. pt states he has been retired for 5 years pt states he helps family with yard mtg and now can not do so. ADLs Comments: pt states he has not been able to use his left hand with any daily tasks. ROM ROM Comments: pt demo delay in left digit grasp ( flexion and ext of digits) thumb opposition left is limited to MF thumb RA trace Strength Elbow: biceps right 29# left 24# triceps right 31# left 24# Pool Coordinator: right 85# left 35# Lateral Pinch: right 12# left unable Tripod Pinch: right 12# left unable Sensation Thumb: right 2.83 normal /left 3.22 interpretation diminished light touch Index: right 2.83 normal left 3.22 interpretation diminished light touch Middle: right 2.83 normal /left 3.22 interpretation diminished light touch Ring: right 2.83 normal /left 3.22 interpretation diminished light touch Little: right 2.83 normal /left 3.22 interpretation diminished light touch Nine Hole Peg Right: 20.60 seconds Left: 2min Comments: pt demo with decrease in left FMS In-Hand Manipulation Finger to Palm Translation: Normal - Right and Unable - Left Palm to Finger Translation: Normal - Right and Unable - Left Shift: Normal - Right and Unable - Left Rotation: Normal - Right and Unable - Left Quick DASH-Disab of Arm,Shoulder Hand Quick DASH Score: 61.3625 Goals Goal:: Pt will demo a increase in left supervisor correspondence section strength by 15# or greater to return pt to PLOF by d.c pt will demo a increase in lateral and tripod pinch to 6# or greater to return pt to his PLOF. Goal:: pt will demo the ability to add and abduct digits as precursor to FM tasks in 3 weeks. pt will demo full thumb finger opposition to base of left LF as precursor for FM manipulation tasks in 3 weeks. Goal:: pt will demo the ability to completed the 9 hole peg test in less than 60 sec demo increase in FMS by d.c pt will demo the ability to manipulate fasteners and tie shoes IND by d.c Goal:: pt will report IND with clothing mtg by d/c Rehabilitation General Assessment: pt demo with a decrease in left UE FMS limiting pts ind with ADLS and IADLs. pt demo need for skilled OT services 2-3x week for 4-6 weeks to assist pt in reaching developmental milestones. Today therapist ed. pt on HEP to initiate AROM, AAROM and fine motor challenges. pt was given handout and demo understanding and agrees to POC. Rehabilitation Potential: Good Anticipated Interventions Anticipated Interventions: A/AAROM/PROM, Strengthening, Fine Motor Coord/Vishnu, Neuro Reeducation, Education re Diagnosis and Home Program Visit Plan Frequency: 2-3x /Week Duration: 2 Months General Plan: improve pts FMS PRE as tolerated TEXT: Thank you for the opportunity to evaluate your patient. For Medicare and Medicare HMO plans, please review the plan of care and approve it. It will need to be FAXED BACK to us at [phone] for Medicare purposes. Please let me know if there are questions or concerns regarding this plan of care. Physician Signature: Date:__ 02/02/25 1537 CC: Dr. Anne Arellano MD; Dr. Marky Lund DO MK Signed For Medicare only, by signing this I certify the plan of care. Physicians Signature Date Normal [facility] Absolute lymphocyte countOrd ered By: Yris Rao on 01-19-2025 Lymphocytes Auto (Unsp spec) [#/Vol] 1.41 10*3/uL 0.83-4.51 [facility] Absolute neutrophil countOrd ered By: Yris Rao on 01-19-2025 Neutrophils (Bld) [#/Vol] 4.9 10*3/uL 2.0-7.7 [facility] Anion gap in Serum or Plasma Ordered By: Yris Rao on 01-19-2025 Anion gap [Moles/Vol] 11 mmol/L 5 [facility] Automated lymphocyte count a s percentage of total leukocytesOrdered By: Yris Rao on 01-19-2025 Lymphocytes/100 WBC Auto (Unsp spec) 19.7 % [facility] BUN/creatinine ratioOrdered By: Yris Rao on 01-19-2025 Urea nitrogen/Creatinine [Mass ratio] 19.1 mg/mg 03-06 [facility] Basic Metabolic Profile (BMP )on 01-19-2025 BUN/CRE 19.1 RATIO Normal 03-06 [facility] Comment on above: Order Comment: Comme nts: NPO at OR prior to lipid panel Performed By: #### L 500.4100, L501.9520, L501.9985, L100.0100, L500.2500, L501.5200 ####[facility] [address] [place], [address] Calcium [Mass/Vol] 8.8 mg/dL Normal 7.6-11.0 [facility] Comment on above: Order Comment: Comme nts: NPO at OR prior to lipid panel Performed By: #### L 500.4100, L501.9520, L501.9985, L100.0100, L500.2500, L501.5200 ####[facility] [address] [place], [address] Chloride [Moles/Vol] 105 mmol/L Normal 98-108 [facility] Comment on above: Order Comment: Comme nts: NPO at OR prior to lipid panel Performed By: #### L 500.4100, L501.9520, L501.9985, L100.0100, L500.2500, L501.5200 ####[facility] [address] [place], [address] CO2 [Moles/Vol] 23.3 mmol/L Normal 21.0-32.0 [facility] Comment on above: Order Comment: Comme nts: NPO at OR prior to lipid panel Performed By: #### L 500.4100, L501.9520, L501.9985, L100.0100, L500.2500, L501.5200 ####[facility] [address] [place], [address] Creatinine [Mass/Vol] 0.64 mg/dL Low 0.70-1.20 [facility] Comment on above: Order Comment: Comme nts: NPO at [place] prior to lipid panel Performed By: #### L 500.4100, L501.9520, L501.9985, L100.0100, L500.2500, L501.5200 ####[facility] [address] [place], [address] ECRCL 86.98 ml/min Normal 50-250 [facility] Comment on above: Order Comment: Comme nts: NPO at MN prior to lipid panel Performed By: #### L 500.4100, L501.9520, L501.9985, L100.0100, L500.2500, L501.5200 ####[facility] [address] [place], [address] GAP 11 Normal 5-15 [facility] Comment on above: Order Comment: Comme nts: NPO at MN prior to lipid panel Performed By: #### L 500.4100, L501.9520, L501.9985, L100.0100, L500.2500, L501.5200 ####[facility] [address] [place], [address] GFR/1.73 sq M.predicted among non-blacks MDRD (S/P/Bld) [Vol rate/Area] 104 mL/min/{1.73_m2} Normal >60 [facility] Comment on above: Order Comment: Comme nts: NPO at MN prior to lipid panel Result Comment: mL/m in/1.73m2 CKD-EPI Creatinine Equation (2020) Performed By: #### L 500.4100, L501.9520, L501.9985, L100.0100, L500.2500, L501.5200 ####[facility] [address] [place], [address] Glucose [Mass/Vol] 84 mg/dL Normal 70-99 [facility] Comment on above: Order Comment: Comme nts: NPO at MN prior to lipid panel Performed By: #### L 500.4100, L501.9520, L501.9985, L100.0100, L500.2500, L501.5200 ####[facility] [address] [place], [address] Potassium [Moles/Vol] 3.5 mmol/L Normal 3.3-5.1 [facility] Comment on above: Order Comment: Comme nts: NPO at OR prior to lipid panel Performed By: #### L 500.4100, L501.9520, L501.9985, L100.0100, L500.2500, L501.5200 ####[facility] [address] [place], [address] Sodium [Moles/Vol] 140 mmol/L Normal 133-145 [facility] Comment on above: Order Comment: Comme nts: NPO at OR prior to lipid panel Performed By: #### L 500.4100, L501.9520, L501.9985, L100.0100, L500.2500, L501.5200 ####[facility] [address] [place], [address] Urea nitrogen [Mass/Vol] 12 mg/dL Normal 4-19 [facility] Comment on above: Order Comment: Comme nts: NPO at OR prior to lipid panel Performed By: #### L 500.4100, L501.9520, L501.9985, L100.0100, L500.2500, L501.5200 ####[facility] [address] [place], [address] Basophil percentageOrdered B y: Yris Rao on 01-19-2025 Basophils/100 WBC (Bld) 0.6 % 0-1 [facility] Brain without Contraston Brain without Contrast [facility] Imaging Services [address] [place] [address] Brain without Contrast MR#: [id number] Acct: [id number] Name: CHARAN GARCIA Rep #: [id number] : 1960 M 64 From: Todd Santos MD PCP: Dr. Anne Arellano MD Status: ADM IN Study: Brain without Contrast Date of Exam: 01/19/25 Exam# [id number] Ordering Dr: Yris Rao MD PROCEDURE: BRAIN WITHOUT CONTRAST 01/19/2025 REASON FOR EXAM: MULT CVAS TECHNIQUE: Procedure Code: MRIBR Modality: MR Procedure: BRAIN WITHOUT CONTRAST Multiplanar and multisequence images were obtained. FINDINGS: Brain: No hemorrhage is seen. Patchy areas of ischemia are seen in the right middle cranial fossa at the temporal tip, superior temporal gyrus anteriorly as well as small patchy foci in the right parietal lobe and right occipital lobe. This is associated with some mild edema. No midline shift or mass effect. No extra-axial collection. Small focus of encephalomalacia is seen in the left occipital lobe; no acute ischemia on the left. Mild changes of chronic microvascular ischemia in the periventricular white matter. In the mesial temporal lobe on the right there is a focus of blooming artifact. CT angiogram shows no corresponding vascular lesion. T2 prolongation in the central alessio from chronic microvascular ischemia. Ventricles: Normal. Major Intracranial Vessels: Correlate with recent CT angiogram. Flow voids are unremarkable. Sinuses: Mild mucosal thickening ethmoid sinuses. Mastoids: Clear MRI/Brain without Contrast IMPRESSION: Patchy foci of acute ischemia on the right side. Consider thromboembolic process. See above description. Reading Location: [id number] CC: Dr. Anne Arellano MD; Dr. Yris Rao MD Digital Color Press Operator: Signed Normal [facility] CBC W/Diff, Automatedon 09-0 Absolute Lymph 1.41 X10 3/uL Normal 0.83-4.51 [facility] Comment on above: Performed By: #### L 500.4100, L501.9520, L501.9985, L100.0100, L500.2500, L501.5200 ####[facility] [address] [place], [address] Absolute Neut 4.9 X10 3/uL Normal 2.0-7.7 [facility] Comment on above: Performed By: #### L 500.4100, L501.9520, L501.9985, L100.0100, L500.2500, L501.5200 ####[facility] [address] [place], [address] Basophils/100 WBC (Bld) 0.6 % Normal 0-1 [facility] Comment on above: Performed By: #### L 500.4100, L501.9520, L501.9985, L100.0100, L500.2500, L501.5200 ####[facility] [address] [place], [address] Eosinophils/100 WBC (Bld) 2.7 % Normal 0-5 [facility] Comment on above: Performed By: #### L 500.4100, L501.9520, L501.9985, L100.0100, L500.2500, L501.5200 ####[facility] [address] [place], [address] Erythrocyte distribution width (RBC) [Ratio] 13.4 % Normal 11.6-14.6 [facility] Comment on above: Performed By: #### L 500.4100, L501.9520, L501.9985, L100.0100, L500.2500, L501.5200 ####[facility] [address] [place], [address] Hematocrit (Bld) [Volume fraction] 41.8 % Normal 40-54 [facility] Comment on above: Performed By: #### L 500.4100, L501.9520, L501.9985, L100.0100, L500.2500, L501.5200 ####[facility] [address] [place], [address] Hemoglobin (Bld) [Mass/Vol] 14.8 g/dL Normal 13.0-16.5 [facility] Comment on above: Performed By: #### L 500.4100, L501.9520, L501.9985, L100.0100, L500.2500, L501.5200 ####[facility] [address] [place], [address] IG% 0.100 Normal 0.0-0.9 [facility] Comment on above: Result Comment: IG% - Immature Granulocytes (promyelocytes, myelocytes and metamyelocytes) > 1% indicates that a LEFT SHIFT is Present. Performed By: #### L 500.4100, L501.9520, L501.9985, L100.0100, L500.2500, L501.5200 ####[facility] [address] [place], [address] Lymphocytes/100 WBC (Bld) 19.7 % Normal 19-41 [facility] Comment on above: Performed By: #### L 500.4100, L501.9520, L501.9985, L100.0100, L500.2500, L501.5200 ####[facility] [address] [place], [address] MCH (RBC) [Entitic mass] 33.4 pg High 27.0-32.0 [facility] Comment on above: Performed By: #### L 500.4100, L501.9520, L501.9985, L100.0100, L500.2500, L501.5200 ####[facility] [address] [place], [address] MCHC (RBC) [Mass/Vol] 35.4 g/dL Normal 32-36 [facility] Comment on above: Performed By: #### L 500.4100, L501.9520, L501.9985, L100.0100, L500.2500, L501.5200 ####[facility] [address] [place], [address] MCV (RBC) [Entitic vol] 94.4 fL High 80-94 [facility] Comment on above: Performed By: #### L 500.4100, L501.9520, L501.9985, L100.0100, L500.2500, L501.5200 ####[facility] [address] [place], [address] Monocytes/100 WBC (Bld) 8.5 % Normal 0-10 [facility] Comment on above: Performed By: #### L 500.4100, L501.9520, L501.9985, L100.0100, L500.2500, L501.5200 ####[facility] [address] [place], [address] Neutrophils/100 WBC (Bld) 68.4 % Normal 47-70 [facility] Comment on above: Performed By: #### L 500.4100, L501.9520, L501.9985, L100.0100, L500.2500, L501.5200 ####[facility] [address] [place], [address] Nucleated RBC (Bld) [#/Vol] 0 10*3/uL Normal 0-5 [facility] Comment on above: Performed By: #### L 500.4100, L501.9520, L501.9985, L100.0100, L500.2500, L501.5200 ####[facility] [address] [place], [address] Platelet mean volume (Bld) [Entitic vol] 9.5 fL Normal 6.2-12.0 [facility] Comment on above: Performed By: #### L 500.4100, L501.9520, L501.9985, L100.0100, L500.2500, L501.5200 ####[facility] [address] [place], [address] Platelets (Bld) [#/Vol] 236 10*3/uL Normal 150-450 [facility] Comment on above: Performed By: #### L 500.4100, L501.9520, L501.9985, L100.0100, L500.2500, L501.5200 ####[facility] [address] [place], [address] RBC (Bld) [#/Vol] 4.43 10*6/uL Low 4.6-6.2 [facility] Comment on above: Performed By: #### L 500.4100, L501.9520, L501.9985, L100.0100, L500.2500, L501.5200 ####[facility] [address] [place], [address] RDW SD 46.8 fl High 35.1-43.9 [facility] Comment on above: Performed By: #### L 500.4100, L501.9520, L501.9985, L100.0100, L500.2500, L501.5200 ####[facility] [address] [place], [address] WBC (Bld) [#/Vol] 7.2 10*3/uL Normal 4.4-11.0 [facility] Comment on above: Performed By: #### L 500.4100, L501.9520, L501.9985, L100.0100, L500.2500, L501.5200 ####[facility] [address] [place], [address] Calculated very low density lipoprotein (VLDL) cholesterol measurementOrdered By: Yris Rao on 01-19-2025 Calculated very low density lipoprotein (VLDL) cholesterol measurement 18 mg/dL 5-40 [facility] Carbon dioxide, total [Moles /volume] in Central venous bloodOrdered By: Yris Rao on 01-19-2025 CO2 [Moles/Vol] 23.3 mmol/L 21.0-32.0 [facility] Chloride assayOrdered By: Rashad Rao on 01-19-2025 Chloride [Moles/Vol] 105 mmol/L 98-108 [facility] Discharge Instructionon Discharge Instruction [facility] Medical Records Department [address] [place] [address] Instructions for Home/Discharge Instructions 01/19/25 1516 MR#: [id number] Acct: [id number] Name: CHARAN GARCIA Rep #: [id number] : 1960 64 From: Marky Lund DO PCP: Dr. Anne Arellano MD Status:ADM IN Discharge Instructions DC O2, CPAP, BIPAP needs Home O2 Discharge instructions: No Dressing / Incision Discharge Activity: Return to Normal Activity Weight Bearing Status: Full weight bearing Follow Up Care Test Results: Test results from this visit will be discussed in further detail at your follow-up appointment, if applicable. Discharge Plan Admission Admit Date/Time: 01/18/25 18:35 Primary Reason for Your Visit: Ischemic stroke Attending Provider: Marky Lund Primary Care Provider: Anne Arellano Consulting Providers: Marcos Rogers; Abeba Velasco; Rosa M Tiwari; Shakira Dunn; Jane Sidhu; Damian Mullen; Rachel Stone; Reno Hernandez; João Umanzor; Bhaskar Mendez; Nel Cadet; Cheyanne Thompson; Jagjit Damon; Madie Juarez; Laura Serrano; Greta Ward; Aaron Maloney; Aliza Real; Xander Beatty; Bhavana Reyes; Obi Zazueta; Yris Rao Instructions Additional Instructions / Restrictions: Do not take any Aleve, Advil, or extra aspirin for pain while you are on Plavix and aspirin. Do not take meloxicam. You may take Tylenol for pain. Do not smoke. Discharge Orders/Prescriptions Prescriptions: New atorvastatin 80 mg Tablet 80 mg PO QHS Qty: 30 0RF aspirin 81 mg Tablet,Chewable 81 mg PO BREAKFAST Qty: 0 0RF clopidogrel [Plavix] 75 mg tablet 75 mg PO DAILY Qty: 21 0RF Rx Instructions: Start on 01/19/2025 nicotine 14 mg/24 hr Patch 24 Hour 14 mg transdermal DAILY Qty: 30 0RF hydrochlorothiazide 25 mg tablet 25 mg PO DAILY Qty: 30 0RF Rx Instructions: One half tab daily starting 01/20/2025 Continued losartan 100 mg tablet 100 mg PO QDAY cholecalciferol (vitamin D3) 125 mcg (5,000 unit) capsule 125 mcg PO QDAY esomeprazole magnesium 20 mg capsule,delayed release(DR/EC) 20 mg PO Q12H prednisone 20 mg tablet 20 mg PO DAILY Discontinued clopidogrel [Plavix] 75 mg tablet 75 mg PO QDAY rosuvastatin [Crestor] 10 mg tablet 10 mg PO QDAY naproxen sodium [Aleve] 220 mg capsule 220 mg PO Q12H PRN (Reason: pain) meloxicam 15 mg tablet 15 mg PO DAILY Other Ambulatory Orders: 30 Day Event Recorder Preventi (Routine) Timeframe: 1 Day Facility: [facility] - Location: Cardiovascular Services Ordered By: Dr. Marky Lund Referrals / Follow Up: Anne Arellano MD [Primary Care Provider] - In 1 Week (Have your blood pressure rechecked, neurology has recommended the sleep study-this will have to be ordered by your primary care provider) Disposition Disposition (needs filled in before D/C Order can be placed): Home, Self Care 01/19/25 1602 Marky Lund DO CC: Shakira Dunn; Madie Juarez; Aaron Maloney; Jane iSdhu MD; Rosa M Tiwari MD; Marcos Rogers MD; Dr. Abeba Velasco MD; Dr. Anne Arellano MD; Dr. Damian Mullen MD; Dr. Rachel Stone MD; Dr. João Umanzor MD; Dr. Reno Hernandez MD; Dr. Bhaskar Mendez MD; Dr. Nel Cadet DO; Dr. Jagjit Damon DO; Dr. Greta Ward MD; Dr. Laura Serrano MD; Dr. Yris Rao MD; Dr. Aliza Real MD; Dr. Xander Beatty MD; Dr. Bhavana Reyes MD; Cheyanne Thompson DO; Obi Zazueta MD Signed Normal [facility] Echocardiogram study reportO rdered By: Rafia Reyes on 01-19-2025 Study report [facility] Cardiovascular Services [address] [place] [address] Echo Complete 01/19/25 0820 MR#: [id number] Acct: [id number] Name: GARCIACHARAN GROVES Rep #:[id number] : 1960 64 From: Rafia agrawal MD Attending Dr: Dr. Marky Lund, DO Status: ADM IN Ordering Dr: Yris Rao MD Date: Location: [facility] Sex: M C Admitted: 01/18/25 Reason For Study Reason For Study: TIA/CVA Procedure This was a 2D Doppler, Color Flow transthoracic echocardiogram. Exam performed portable in patient room. Left Ventricle Normal LV size. The estimated ejection fraction is 65 %. No evidence for diastolic dysfunction. No regional wall motion abnormalities noted. Right Ventricle Normal RV size. Normal systolic function. Atria The left and right atria are normal. No doppler evidence for ASD. Mitral Valve There is no mitral valve stenosis. No mitral valve insufficiency. Tricuspid Valve There is no tricuspid stenosis. No tricuspid valve insufficiency. Aortic Valve Trisinus/trileaflet aortic valve. There is no aortic stenosis. Trivial aortic valve insufficiency. Pulmonic Valve There is no pulmonic valvular stenosis. No pulmonic valve insufficiency. Great Vessels Normal sized aortic root. Pericardium/Pleural No pericardial effusion. MMode/2D Measurements & Calculations LVIDd: 4.4 cm IVSd: 0.74 cm Ao root diam: 3.4 cm LVIDs: 2.3 cm LVPWd: 0.93 cm RVDd: 3.7 cm FS: 47.2 % LAV(MOD-bp): 46.3 ml LVAd ap4: 25.1 cm2 LVAd ap2: 22.7 cm2 LAV(MOD-bp) Indexed: 25.4 ml/m2 LVLd ap4: 7.5 cm LVLd ap2: 7.3 cm LAV(MOD-sp2): 61.2 ml EDV(MOD-sp4): 70.1 ml EDV(MOD-sp2): 60.6 ml LAV(MOD-sp4): 35.2 ml EDV(sp4-el): 71.0 ml EDV(sp2-el): 60.1 ml LVAs ap4: 13.5 cm2 LVAs ap2: 11.2 cm2 LVLs ap4: 6.2 cm LVLs ap2: 6.1 cm ESV(MOD-sp4): 25.8 ml ESV(MOD-sp2): 18.2 ml ESV(sp4-el): 25.1 ml ESV(sp2-el): 17.4 ml EF(MOD-sp4): 63.2 % EF(MOD-sp2): 69.9 % EF(sp4-el): 64.7 % SV(MOD-sp4): 44.3 ml SV(MOD-sp2): 42.4 ml SV(sp4-el): 45.9 ml SI(MOD-sp4): 24.3 ml/m2 SI(MOD-sp2): 23.2 ml/m2 LA A4 area: 15.1 cm2 LA dimension(2D): 4.1 cm RA A4 area: 13.7 cm2 TAPSE: 2.4 cm Time Measurements MV dec time: 0.25 sec Doppler Measurements & Calculations MV E max alley: 65.4 cm/sec Lat Peak E' Alley: 12.1 cm/sec Med Peak E' Alley: 10.2 cm/sec MV A max alley: 78.9 cm/sec E/E' lat: 5.4 E/E' med: 6.4 MV E/A: 0.83 MV V2 max: 96.0 cm/sec MV P1/2t max alley: 85.2 cm/sec Ao V2 max: 130.0 cm/sec MV max P.7 mmHg MV P1/2t: 74.5 msec Ao max P.8 mmHg MV V2 mean: 55.8 cm/sec Ao V2 mean: 83.8 cm/sec MV mean P.4 mmHg MV dec slope: 335.0 cm/sec2 Ao mean P.3 mmHg MV V2 VTI: 26.4 cm MVA(P1/2t): 3.0 cm2 Ao V2 VTI: 30.4 cm AV (velocity ratio): 0.95 AI max alley: 341.2 cm/sec LV V1 max: 127.4 cm/sec PA V2 max: 87.0 cm/sec AI max P.6 mmHg LV V1 max P.5 mmHg PA V2 mean: 59.4 cm/sec LV V1 mean P.0 mmHg AI dec slope: 136.5 cm/sec2 LV V1 mean: 79.3 cm/sec AI P1/2t: 732.1 msec LV V1 VTI: 29.0 cm TR max alley: 212.4 cm/sec TR max P.0 mmHg ECHO/Echo Complete Interpretation Summary The estimated ejection fraction is 65 %. No evidence for diastolic dysfunction. Trivial aortic valve insufficiency. Ordering Physician: Yris Rao Referring Physician: Anne Arellano Performed By: Flores Weiss, JENNY, RVT 01/19/251423 Date _ Rafia Reyes MD CC: Dr. Anne Arellano MD; Dr. Marky Lund DO; Dr. Yris Rao MD ~ Date Dictated: 01/19/25819 Date Transcribed: 01/19/251423 Digital Color Press Operator: Signed [facility] Work Phone: Eosinophil percentageOrdered By: Yris Rao on 01-19-2025 Eosinophils/100 WBC (Bld) 2.7 % 0-5 [facility] Erythrocyte distribution wid th ratioOrdered By: Yris Rao on 01-19-2025 Erythrocyte distribution width (RBC) [Ratio] 13.4 % 11.6-14.6 [facility] Erythrocyte distribution wid th standard deviationOrdered By: Yris Rao on 01-19-2025 Erythrocyte distribution width (RBC) [Ratio] 46.8 fl High 35.1-43.9 [facility] Glomerular filtration rate ( GFR) estimation/1.73 sq m using serum, plasma, or whole bOrdered By: Yris Rao on 01-19-2025 GFR/1.73 sq M.predicted among non-blacks MDRD (S/P/Bld) [Vol rate/Area] 104 mL/min/{1.73_m2} >60 [facility] Comment on above: mL/min/1.73m2 CKD-EP I Creatinine Equation (2020) Hematocrit Auto (Bld) [Volum e fraction]Ordered By: Yris Rao on 01-19-2025 Hematocrit (Bld) [Volume fraction] 41.8 % 40-54 [facility] Hemoglobin A1con 01-19-2025 HbA1c (Bld) [Mass fraction] 5.3 % Normal <=5.6 [facility] Comment on above: Result Comment: Norm al < 5.7 % Prediabetic 5.7 - 6.4 % Diabetic >or= 6.5 % Please note range changes. Performed By: #### L 500.4100, L501.9520, L501.9985, L100.0100, L500.2500, L501.5200 ####[facility] [address] [place], [address] Hemoglobin A1c percentageOrd ered By: Yris Rao on 01-19-2025 HbA1c (Bld) [Mass fraction] 5.3 % <5.7 [facility] Comment on above: Normal < 5.7 % Predi abetic 5.7 - 6.4 % Diabetic >or= 6.5 % Please note range changes. Hemoglobin measurementOrdere d By: Yris Rao on 01-19-2025 Hemoglobin (Bld) [Mass/Vol] 14.8 g/dL 13.0-16.5 [facility] Immature granulocytes/100 WB C Auto (Bld)Ordered By: Yris Rao on 01-19-2025 Immature granulocytes/100 WBC (Bld) 0.100 % 0.0-0.9 [facility] Comment on above: IG% - Immature Granu locytes (promyelocytes, myelocytes and metamyelocytes) > 1% indicates that a LEFT SHIFT is Present. LDL calc ser/plasOrdered By: Yris Rao on 01-19-2025 Cholesterol in LDL [Mass/Vol] 100 mg/dL [facility] Comment on above: Eslszwhbmm=312-807 m g/dL & Higher Djdm=531 mg/dL or greaterFriedwald Equation for LDL-C Lipid Profileon 01-19-2025 CHOL:HDL 3.81 Normal [facility] Comment on above: Order Comment: Comme nts: NPO at OR prior to lipid panel Performed By: #### L 500.4100, L501.9520, L501.9985, L100.0100, L500.2500, L501.5200 ####[facility] [address] [facility] [place], [address] Cholesterol [Mass/Vol] 159 mg/dL Normal <=200 [facility] Comment on above: Order Comment: Comme nts: NPO at OR prior to lipid panel Result Comment: Chol esterol level, Desirable <200 mg/dL Borderline high cholesterol 200-239 mg/dL High cholesterol >=240 mg/dL Recommendations of the NCEP Adult Treatment Panel for the following risk-cutoff thresholds for the [place] population. Performed By: #### L 500.4100, L501.9520, L501.9985, L100.0100, L500.2500, L501.5200 ####[facility] [address] [facility] [place], [address] Cholesterol in HDL [Mass/Vol] 42 mg/dL Normal [facility] Comment on above: Order Comment: Comme nts: NPO at OR prior to lipid panel Result Comment: Anjali onal Cholesterol Education Program (NCEP) guidelines: <40 mg/dL: Low HDL-cholesterol (major risk factor for CHD) >= 60 mg/dL: High HDL-cholesterol (negative risk factor for CHD) HDL-cholesterol is affected by a number of factors, e.g. smoking, exercise, hormones, sex and age. Performed By: #### L 500.4100, L501.9520, L501.9985, L100.0100, L500.2500, L501.5200 ####[facility] [address] [place], [address] Cholesterol in LDL [Mass/Vol] 100 mg/dL Normal [facility] Comment on above: Order Comment: Comme nts: NPO at OR prior to lipid panel Result Comment: Bord wylzuf=358-234 mg/dL Higher Ynhf=827 mg/dL or greater Friedwald Equation for LDL-C Performed By: #### L 500.4100, L501.9520, L501.9985, L100.0100, L500.2500, L501.5200 ####[facility] [address] [place], [address] Cholesterol in VLDL [Mass/Vol] 18 mg/dL Normal 5-40 [facility] Comment on above: Order Comment: Comme nts: NPO at [place] prior to lipid panel Performed By: #### L 500.4100, L501.9520, L501.9985, L100.0100, L500.2500, L501.5200 ####[facility] [address] [place], [address] Triglyceride [Mass/Vol] 88 mg/dL Normal [facility] Comment on above: Order Comment: Comme nts: NPO at OR prior to lipid panel Result Comment: The drugs N-Acetylcysteine and Metamizole may falsely depress this assay. Normal range: <150 mg/dL Borderline High: 150-199 mg/dL High: 200-499 mg/dL Very High: >500 mg/dL Performed By: #### L 500.4100, L501.9520, L501.9985, L100.0100, L500.2500, L501.5200 ####[facility] [address] [place], [address] MCV (mean corpuscular volume ) determinationOrdered By: Yris Rao on 01-19-2025 MCV (RBC) [Entitic vol] 94.4 fL High 80-94 [facility] MR/CON.PCM.NEon 01-19-2025 MR/CON.PCM.NE [facility] Medical Records Department [address] [place] [address] Consultation - Neurology 01/19/25 1345 MR#: [id number] Acct: [id number] Name: CHARAN GARCIA Rep #: [id number] : 1960 64 From: Xander Beatty MD PCP: Dr. Anne Arellano MD Status:ADM IN Location: [place] [address] Assessment and Plan: Stroke Assessment/Plan CHARAN GARCIA is a 64 M with a history of HTN smoking who presents for evaluation of aphasia and numbness. Neurological examination shows NIH 3. Speech is improving. Neuroimaging shows R sided multifocal infarcts. Pattern suggests embolic infarcts. TTE was completed. Waiting on results. CTA with no sig stenosis or occlusion. Etiology - cryptogenic for now. Pattern is embolic. - Anti-platelet medication: Aspirin 81 mg daily - Occupational/ Physical therapy consults - NPO until swallow evaluation. IVF until able to take po - DVT prophylaxis with SCDs and heparin SQ - Vascular risk factor modification. The following are the recommended guidelines: LDL Goal < 70 - lipitor Smoking Cessation - we discussed this. He is trying. Follow up with PCP for possible medication assistance Diabetes Management - NA. A1C is ok,. USP blood pressure control should achieve <130/80 mmHg. BP management should aim to achieve residential contorl in a reasonable amount of time, taking into consideration the individual patient's requirements and characteristics. He will need BP cuff. Told to keep diary and check BP three times a day for next three weeks. Weight Management: Goal for BMI is 18.5 -24.9 kg/m2 Alcohol: No more than 2 drinks/day for men or 1 drink/day for non- women - Promote lifestyle modification: weight control, physical activity, moderation of alcohol intake, moderate sodium intake. - Cardiology - TTE results are pending. 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 Start with 30 days. IF need to can proceed with [facility] outpatient. - Referral to sleep medicine for sleep apnea testing. Followup with PCP in 1-2 weeks, and in Neurology clinic in 6-12 weeks HPI Consult Data Date of Consult: 01/19/25 HPI Narrative HPI Narrative: CHARAN GARCIA, is a 64 M who presents [facility] Medical History (Updated 01/19/25 @ 13:[address] Yris Rao MD) Hyperlipidemia HTN (hypertension) CVA (cerebral vascular accident) Hiatal hernia GERD (gastroesophageal reflux disease) Home Medications ???Medication ???Instructions ???Recorded ???Last Taken ???Type esomeprazole magnesium 20 mg 20 mg PO Q12H gerd 11/26/22 History capsule,delayed release cholecalciferol (vitamin D3) 125 125 mcg PO QDAY 07/20/24 Unknown H istory mcg (5,000 unit) capsule Held on 01/18/25. Instructions: Order Completed clopidogrel 75 mg tablet (Plavix) 75 mg PO QDAY 07/20/24 Unknown Hi story losartan 100 mg tablet 100 mg PO QDAY 07/20/24 Unknown Hi story naproxen sodium 220 mg capsule 220 mg PO Q12H PRN pain 07/20/24 U nknown History (Aleve) rosuvastatin 10 mg tablet (Crestor) 10 mg PO QDAY 07/20/24 Unknown History meloxicam 15 mg tablet 15 mg PO DAILY 01/18/25 Unknown Hi story prednisone 20 mg tablet 20 mg PO DAILY 01/18/25 Unknown Hi story Allergy/AdvReac Type Severity Reaction Status Date / Time No Known Allergies Allergy Verified 11/26/22 12:00 Family History (Updated 11/26/22 @ 16:[address] Charan Martinez MD) Mother CVA (cerebral vascular accident) Surgical History (Updated 11/26/22 @ 15:30 by Quynh Goldberg) History of ankle surgery Social History (Updated 07/20/24 @ 14:18 by Erin Guerrero) Smoking Status: Unknown if ever smoked substance use type: marijuana Vital Signs Vital Signs Vital Signs: 01/18/25 16:57 01/18/25 17:10 01/18/25 17:14 Temperature 97.9 F 98.6 F Temperature Source Oral Oral Pulse Rate 97 86 Pulse Strength Respiratory Rate 16 18 Respiratory Effort Respiratory Depth Respiratory Pattern Blood Pressure 174/97 H 168/76 H Blood Pressure Mean 122 106 Blood Pressure Source Blood Pressure Position Blood Pressure Location Pulse Ox 99 98 Oxygen Delivery Method Room Air Room Air Room Air 01/18/25 17:17 01/18/25 17:29 01/18/25 17:43 Temperature 98.7 F 97.8 F 98.7 F Temperature Source Oral Oral Oral Pulse Rate 85 79 70 Pulse Strength Respiratory Rate 15 18 22 H Respiratory Effort Respiratory Depth Respiratory Pattern Blood Pressure 164/74 H 162/76 H 162/72 H Blood Pressure Mean 104 104 102 Blood Pressure Source Blood Pressure Position Blood Pressure Location Pulse Ox 98 98 97 Oxygen Delivery Method Room Air Room Air Room Air 01/18/25 17:56 01/18/25 17:59 01/18/25 18:15 Temperature 9 (more content not included)... Normal [facility] Magnesiumon 01-19-2025 Magnesium [Mass/Vol] 2.2 mg/dL Normal 1.5-2.2 [facility] Comment on above: Order Comment: Comme nts: NPO at OR prior to lipid panel Performed By: #### L 500.4100, L501.9520, L501.9985, L100.0100, L500.2500, L501.5200 ####[facility] [address] [place], [place], [address] Magnesium measurement (mass/ volume)Ordered By: Yris Rao on 01-19-2025 Magnesium (Unsp spec) [Mass/Vol] 2.2 mg/dL 1.5-2.2 [facility] Magnetic resonance imaging r eportOrdered By: Todd Santos on 01-19-2025 Study report [facility] Imaging Services [address] [place], [place] [address] Brain without Contrast MR#: [id number] Acct: [id number] Name: CHARAN GARCIA Rep #: [id number] : 1960 M 64 From: Fritz Santos MD PCP: Dr. Anne Arellano MD Status: ADM IN Study:Brain without Contrast Date of Exam: 01/19/25 Exam# [id number] Ordering Dr: Amber Rao MD PROCEDURE: BRAIN WITHOUT CONTRAST 01/19/2025 REASON FOR EXAM: MULT CVAS TECHNIQUE: Procedure Code: MRIBR Modality: MR Procedure: BRAIN WITHOUT CONTRAST Multiplanar and multisequence images were obtained. FINDINGS: Brain: No hemorrhage is seen. Patchy areas of ischemia are seen in the right middle cranial fossa at the temporal tip, superior temporal gyrus anteriorly as well as small patchy foci in the right parietal lobe and right occipital lobe. This is associated with some mild edema. No midline shift or mass effect. No extra-axial collection. Small focus of encephalomalacia is seen in the left occipital lobe; no acute ischemia on the left. Mild changes of chronic microvascular ischemia in the periventricular white matter. In the mesial temporal lobe on the right there is a focus of blooming artifact. CT angiogram shows no corresponding vascular lesion. T2 prolongation in the central alessio from chronic microvascular ischemia. Ventricles: Normal. Major Intracranial Vessels: Correlate with recent CT angiogram. Flow voids are unremarkable. Sinuses: Mild mucosal thickening ethmoid sinuses. Mastoids: Clear MRI/Brain without Contrast IMPRESSION: Patchy foci of acute ischemia on the right side. Consider thromboembolic process. See above description. Reading Location: [id number] CC: Dr. Anne Arellano MD; Dr. Yris Rao MD ~ Digital Color Press Operator: Signed [facility] Mean corpuscular hemoglobin (MCH) determinationOrdered By: Yris Rao on 01-19-2025 MCH (RBC) [Entitic mass] 33.4 pg High 27.0-32.0 [facility] Mean corpuscular hemoglobin concentration (MCHC) determinationOrdered By: Yris Rao on 01-19-2025 MCHC (RBC) [Mass/Vol] 35.4 g/dL 32-36 [facility] Mean platelet volume determi nationOrdered By: Yris Rao on 01-19-2025 Platelet mean volume (Bld) [Entitic vol] 9.5 fL 6.2-12.0 [facility] Monocyte percentageOrdered B y: Yris Rao on 01-19-2025 Monocytes/100 WBC (Bld) 8.5 % 0-10 [facility] Neutrophil percentageOrdered By: Yris Rao on 01-19-2025 Neutrophils/100 WBC (Bld) 68.4 % 47-70 [facility] Nucleated red blood cell per centageOrdered By: Yris Rao on 01-19-2025 Nucleated RBC/100 WBC (Bld) [Ratio] 0 % 0-5 [facility] Platelet countOrdered By: Rashad Rao on 01-19-2025 Platelets (Bld) [#/Vol] 236 10*3/uL 150-450 [facility] Potassium measurement (mass/ volume)Ordered By: Yris Rao on 01-19-2025 Potassium (Unsp spec) [Mass/Vol] 3.5 mmol/L 3.3-5.1 [facility] RBC Auto (Bld) [#/Vol]Ordere d By: Yris Rao on 01-19-2025 RBC (Bld) [#/Vol] 4.43 10*6/uL Low 4.6-6.2 [facility] Screening total cholesterol/ high density lipoprotein (HDL) cholesterol ratioOrdered By: Yris Rao on 01-19-2025 Cholesterol.total/Choles terol in HDL [Mass ratio] 3.81 {ratio} [facility] Serum creatinine measurement (mass/volume)Ordered By: Yris Rao on 01-19-2025 Creatinine [Mass/Vol] 0.64 mg/dL Low 0.70-1.20 [facility] Serum glucose measurement (m ass/volume)Ordered By: Yris Rao on 01-19-2025 Glucose [Mass/Vol] 84 mg/dL 70-99 [facility] Serum or plasma calcium leonardo urement (mass/volume)Ordered By: Yris Rao on 01-19-2025 Calcium [Mass/Vol] 8.8 mg/dL 7.6-11.0 [facility] Serum or plasma cholesterol in HDL measurement (mass/volume)Ordered By: Yris Rao on 01-19-2025 Cholesterol in HDL [Mass/Vol] 42 mg/dL >40 [facility] Comment on above: National Cholesterol Education Program (NCEP) guidelines:<40 mg/dL: Low HDL-cholesterol (major risk factor for CHD)>= 60 mg/dL: High HDL-cholesterol (negative risk factor for CHD)HDL-cholesterol is affected by a number of factors, e.g. smoking, exercise, hormones, sex and age. Serum or plasma cholesterol measurement (mass/volume)Ordered By: Yris Rao on 01-19-2025 Cholesterol [Mass/Vol] 159 mg/dL <201 [facility] Comment on above: Cholesterol level, D esirable <200 mg/dLBorderline high cholesterol 200-239 mg/dLHigh cholesterol >=240 mg/dLRecommendations of the NCEP Adult Treatment Panel for the following risk-cutoff thresholds for the [place] population. Serum or plasma urea nitroge n measurement (mass/volume)Ordered By: Yris Rao on 01-19-2025 Urea nitrogen [Mass/Vol] 12 mg/dL 4-19 [facility] Sodium levelOrdered By: Gilberto Rao on 01-19-2025 Sodium [Moles/Vol] 140 mmol/L 133-145 [facility] TSH DL <= 0.005 mIU/L QnOrde red By: Yris Rao on 01-19-2025 TSH Qn 2.210 uIU/mL 0.300-4.200 [facility] Thyroid Stim Hormone (TSH)on 01-19-2025 TSH 2.210 uIU/mL Normal 0.300-4.200 [facility] Comment on above: Order Comment: Comme nts: NPO at OR prior to lipid panel Performed By: #### L 500.4100, L501.9520, L501.9985, L100.0100, L500.2500, L501.5200 ####[facility] [address] [place], [address] Triglycerides measurementOrd ered By: Yris Rao on 01-19-2025 Triglyceride [Mass/Vol] 88 mg/dL <199 [facility] Comment on above: The drugs N-Acetylcy steine and Metamizole may falsely depress this assay. Normal range: <150 mg/dLBorderline High: 150-199 mg/dLHigh: 200-499 mg/dLVery High: >500 mg/dL White blood cell (WBC) count Ordered By: Yris Rao on 01-19-2025 WBC (Bld) [#/Vol] 7.2 10*3/uL 4.4-11.0 [facility] 12 Lead EKGon 01-18-2025 12 Lead EKG [facility] Cardiovascular Services [address] [place] [address] 12 Lead EKG 01/18/25 1752 MR#: [id number] Acct: [id number] Name: CHARAN GARCIA Rep #: [id number] : 1960 64 From: Siva Swann MD Attending Dr: Dr. Marky Lund DO Status: D IS IN Ordering Dr: Jorge Villareal DO Date: 01/18/25 Location: [facility] Sex: M C Admitted: 01/18/25 Test Reason : Blood Pressure : */* mmHG Vent. Rate : 61 BPM Atrial Rate : 61 BPM P-R Int : 162 ms QRS Dur : 92 ms QT Int : 412 ms P-R-T Axes : 61 25 26 degrees QTcB Int : 414 ms Normal sinus rhythm Normal ECG Confirmed by Siva Swann ([id number]), editor city ALIX PENA ([id number]) on 01/20/2025 6:43:49 AM Referred By: Confirmed By: Siva Swann 01/20/25 0643 Date Siva Swann MD CC: Dr. Anne Arellano MD; Dr. Marky Lund DO; Dr. Jorge Villareal DO Signed Normal [facility] Absolute lymphocyte countOrd ered By: Jorge Villareal on 01-18-2025 Lymphocytes Auto (Unsp spec) [#/Vol] 0.65 10*3/uL Low 0.83-4.51 [facility] Absolute neutrophil countOrd ered By: Jorge Villareal on 01-18-2025 Neutrophils (Bld) [#/Vol] 6.2 10*3/uL 2.0-7.7 [facility] Activated partial thrombopla stin time (aPTT) in platelet poor plasma by coagulation aOrdered By: Jorge Villareal on 09-03-2025 aPTT Coag (PPP) [Time] 29.8 s 24.1-36.2 [facility] Anion gap in Serum or Plasma Ordered By: Jorge Villareal on 01-18-2025 Anion gap [Moles/Vol] 14 mmol/L 5-15 [facility] Automated lymphocyte count a s percentage of total leukocytesOrdered By: Jorge Villareal on 01-18-2025 Lymphocytes/100 WBC Auto (Unsp spec) 9.2 % Low - [facility] BUN/creatinine ratioOrdered By: Jorge Villareal on 01-18-2025 Urea nitrogen/Creatinine [Mass ratio] 18.7 mg/mg - [facility] Basic Metabolic Profile (BMP )on 01-18-2025 BUN/CRE 18.7 RATIO Normal - [facility] Comment on above: Performed By: #### L 100.0100, L300.3900, L501.4021, L300.4310, L500.2500 ####[facility] [address] [place], [address] Calcium [Mass/Vol] 9.2 mg/dL Normal 7.6-11.0 [facility] Comment on above: Performed By: #### L 100.0100, L300.3900, L501.4021, L300.4310, L500.2500 ####[facility] [address] [place], [address] Chloride [Moles/Vol] 105 mmol/L Normal 98-108 [facility] Comment on above: Performed By: #### L 100.0100, L300.3900, L501.4021, L300.4310, L500.2500 ####[facility] [address] [place], [address] CO2 [Moles/Vol] 19.6 mmol/L Low 21.0-32.0 [facility] Comment on above: Performed By: #### L 100.0100, L300.3900, L501.4021, L300.4310, L500.2500 ####[facility] [address] [place], [address] Creatinine [Mass/Vol] 0.76 mg/dL Normal 0.70-1.20 [facility] Comment on above: Performed By: #### L 100.0100, L300.3900, L501.4021, L300.4310, L500.2500 ####[facility] [address] [place], [address] ECRCL 89.93 ml/min Normal 50-250 [facility] Comment on above: Performed By: #### L 100.0100, L300.3900, L501.4021, L300.4310, L500.2500 ####[facility] [address] [place], [address] GAP 14 Normal 5-15 [facility] Comment on above: Performed By: #### L 100.0100, L300.3900, L501.4021, L300.4310, L500.2500 ####[facility] [address] [place], [address] GFR/1.73 sq M.predicted among non-blacks MDRD (S/P/Bld) [Vol rate/Area] 99 mL/min/{1.73_m2} Normal >60 [facility] Comment on above: Result Comment: mL/m in/1.73m2 CKD-EPI Creatinine Equation (2020) Performed By: #### L 100.0100, L300.3900, L501.4021, L300.4310, L500.2500 ####[facility] [address] [place], [address] Glucose [Mass/Vol] 119 mg/dL High 70-99 [facility] Comment on above: Performed By: #### L 100.0100, L300.3900, L501.4021, L300.4310, L500.2500 ####[facility] [address] [place], [address] Potassium [Moles/Vol] 3.7 mmol/L Normal 3.3-5.1 [facility] Comment on above: Result Comment: Hemo lysis present, Results??could be affected. ?? Performed By: #### L 100.0100, L300.3900, L501.4021, L300.4310, L500.2500 ####[facility] [address] [place], [address] Sodium [Moles/Vol] 139 mmol/L Normal 133-145 [facility] Comment on above: Performed By: #### L 100.0100, L300.3900, L501.4021, L300.4310, L500.2500 ####[facility] [address] [place], [address] Urea nitrogen [Mass/Vol] 14 mg/dL Normal 4-19 [facility] Comment on above: Performed By: #### L 100.0100, L300.3900, L501.4021, L300.4310, L500.2500 ####[facility] [address] [place], [address] Basophil percentageOrdered B y: Jorge Hudsons on 01-18-2025 Basophils/100 WBC (Bld) 0.3 % 0-1 [facility] CBC W/Diff, Automatedon Absolute Lymph 0.65 X10 3/uL Low 0.83-4.51 [facility] Comment on above: Performed By: #### L 100.0100, L300.3900, L501.4021, L300.4310, L500.2500 ####[facility] [address] [place], [address] Absolute Neut 6.2 X10 3/uL Normal 2.0-7.7 [facility] Comment on above: Performed By: #### L 100.0100, L300.3900, L501.4021, L300.4310, L500.2500 ####[facility] [address] [place], [address] Basophils/100 WBC (Bld) 0.3 % Normal 0-1 [facility] Comment on above: Performed By: #### L 100.0100, L300.3900, L501.4021, L300.4310, L500.2500 ####[facility] [address] [place], [address] Eosinophils/100 WBC (Bld) 0.0 % Normal 0-5 [facility] Comment on above: Performed By: #### L 100.0100, L300.3900, L501.4021, L300.4310, L500.2500 ####[facility] [address] [place], [address] Erythrocyte distribution width (RBC) [Ratio] 13.5 % Normal 11.6-14.6 [facility] Comment on above: Performed By: #### L 100.0100, L300.3900, L501.4021, L300.4310, L500.2500 ####[facility] [address] [place], [address] Hematocrit (Bld) [Volume fraction] 45.0 % Normal 40-54 [facility] Comment on above: Performed By: #### L 100.0100, L300.3900, L501.4021, L300.4310, L500.2500 ####[facility] [address] [place], [address] Hemoglobin (Bld) [Mass/Vol] 16.1 g/dL Normal 13.0-16.5 [facility] Comment on above: Performed By: #### L 100.0100, L300.3900, L501.4021, L300.4310, L500.2500 ####[facility] [address] [place], [address] IG% 0.100 Normal 0.0-0.9 [facility] Comment on above: Result Comment: IG% - Immature Granulocytes (promyelocytes, myelocytes and metamyelocytes) > 1% indicates that a LEFT SHIFT is Present. Performed By: #### L 100.0100, L300.3900, L501.4021, L300.4310, L500.2500 ####[facility] [address] [place], [address] Lymphocytes/100 WBC (Bld) 9.2 % Low 19-41 [facility] Comment on above: Performed By: #### L 100.0100, L300.3900, L501.4021, L300.4310, L500.2500 ####[facility] [address] [place], [address] MCH (RBC) [Entitic mass] 34.4 pg High 27.0-32.0 [facility] Comment on above: Performed By: #### L 100.0100, L300.3900, L501.4021, L300.4310, L500.2500 ####[facility] [address] [place], [address] MCHC (RBC) [Mass/Vol] 35.8 g/dL Normal 32-36 [facility] Comment on above: Performed By: #### L 100.0100, L300.3900, L501.4021, L300.4310, L500.2500 ####[facility] [address] [place], [address] MCV (RBC) [Entitic vol] 96.2 fL High 80-94 [facility] Comment on above: Performed By: #### L 100.0100, L300.3900, L501.4021, L300.4310, L500.2500 ####[facility] [address] [place], [address] Monocytes/100 WBC (Bld) 2.7 % Normal 0-10 [facility] Comment on above: Performed By: #### L 100.0100, L300.3900, L501.4021, L300.4310, L500.2500 ####[facility] [address] [place], [address] Neutrophils/100 WBC (Bld) 87.7 % High 47-70 [facility] Comment on above: Performed By: #### L 100.0100, L300.3900, L501.4021, L300.4310, L500.2500 ####[facility] [address] [place], [address] Nucleated RBC (Bld) [#/Vol] 0 10*3/uL Normal 0-5 [facility] Comment on above: Performed By: #### L 100.0100, L300.3900, L501.4021, L300.4310, L500.2500 ####[facility] [address] [place], [address] Platelet mean volume (Bld) [Entitic vol] 9.5 fL Normal 6.2-12.0 [facility] Comment on above: Performed By: #### L 100.0100, L300.3900, L501.4021, L300.4310, L500.2500 ####[facility] [address] [place], [address] Platelets (Bld) [#/Vol] 293 10*3/uL Normal 150-450 [facility] Comment on above: Performed By: #### L 100.0100, L300.3900, L501.4021, L300.4310, L500.2500 ####[facility] [address] [place], [address] RBC (Bld) [#/Vol] 4.68 10*6/uL Normal 4.6-6.2 [facility] Comment on above: Performed By: #### L 100.0100, L300.3900, L501.4021, L300.4310, L500.2500 ####[facility] [address] [place], [address] RDW SD 47.9 fl High 35.1-43.9 [facility] Comment on above: Performed By: #### L 100.0100, L300.3900, L501.4021, L300.4310, L500.2500 ####[facility] [address] [place], [address] WBC (Bld) [#/Vol] 7.0 10*3/uL Normal 4.4-11.0 [facility] Comment on above: Performed By: #### L 100.0100, L300.3900, L501.4021, L300.4310, L500.2500 ####[facility] [address] [place], [address] Carbon dioxide, total [Moles /volume] in Central venous bloodOrdered By: Jorge Villareal on 01-18-2025 CO2 [Moles/Vol] 19.6 mmol/L Low 21.0-32.0 [facility] Chloride assayOrdered By: Jewels Villareal on 01-18-2025 Chloride [Moles/Vol] 105 mmol/L 98-108 [facility] Echo Completeon 01-18-2025 Echo Complete [facility] [address] [place] [address] Echo Complete 01/19/25 0820 MR#: [id number] Acct: [id number] Name: CHARAN GARCIA Rep #: [id number] : 1960 64 From: Rafia Reyes MD Attending Dr: Dr. Marky Lund, DO Status: A DM IN Ordering Dr: Yris Rao MD Date: 01/18/25 Location: [facility] [facility] Sex: M C Admitted: 01/18/25 Reason For Study Reason For Study: TIA/CVA Procedure This was a 2D Doppler, Color Flow transthoracic echocardiogram. Exam performed portable in patient room. Left Ventricle Normal LV size. The estimated ejection fraction is 65 %. No evidence for diastolic dysfunction. No regional wall motion abnormalities noted. Right Ventricle Normal RV size. Normal systolic function. Atria The left and right atria are normal. No doppler evidence for ASD. Mitral Valve There is no mitral valve stenosis. No mitral valve insufficiency. Tricuspid Valve There is no tricuspid stenosis. No tricuspid valve insufficiency. Aortic Valve Trisinus/trileaflet aortic valve. There is no aortic stenosis. Trivial aortic valve insufficiency. Pulmonic Valve There is no pulmonic valvular stenosis. No pulmonic valve insufficiency. Great Vessels Normal sized aortic root. Pericardium/Pleural No pericardial effusion. MMode/2D Measurements Calculations LVIDd: 4.4 cm IVSd: 0.74 cm Ao root diam: 3.4 cm LVIDs: 2.3 cm LVPWd: 0.93 cm RVDd: 3.7 cm FS: 47.2 % LAV(MOD-bp): 46.3 ml LVAd ap4: 25.1 cm2 LVAd ap2: 22.7 cm2 LAV(MOD-bp) Indexed: 25.4 ml/m2 LVLd ap4: 7.5 cm LVLd ap2: 7.3 cm LAV(MOD-sp2): 61.2 ml EDV(MOD-sp4): 70.1 ml EDV(MOD-sp2): 60.6 ml LAV(MOD-sp4): 35.2 ml EDV(sp4-el): 71.0 ml EDV(sp2-el): 60.1 ml LVAs ap4: 13.5 cm2 LVAs ap2: 11.2 cm2 LVLs ap4: 6.2 cm LVLs ap2: 6.1 cm ESV(MOD-sp4): 25.8 ml ESV(MOD-sp2): 18.2 ml ESV(sp4-el): 25.1 ml ESV(sp2-el): 17.4 ml EF(MOD-sp4): 63.2 % EF(MOD-sp2): 69.9 % EF(sp4-el): 64.7 % SV(MOD-sp4): 44.3 ml SV(MOD-sp2): 42.4 ml SV(sp4-el): 45.9 ml SI(MOD-sp4): 24.3 ml/m2 SI(MOD-sp2): 23.2 ml/m2 LA A4 area: 15.1 cm2 LA dimension(2D): 4.1 cm RA A4 area: 13.7 cm2 TAPSE: 2.4 cm Time Measurements MV dec time: 0.25 sec Doppler Measurements Calculations MV E max alley: 65.4 cm/sec Lat Peak E' Alley: 12.1 cm/sec Med Peak E' Alley: 10.2 cm/sec MV A max alley: 78.9 cm/sec E/E' lat: 5.4 E/E' med: 6.4 MV E/A: 0.83 MV V2 max: 96.0 cm/sec MV P1/2t max alley: 85.2 cm/sec Ao V2 max: 130.0 cm/sec MV max P.7 mmHg MV P1/2t: 74.5 msec Ao max P.8 mmHg MV V2 mean: 55.8 cm/sec Ao V2 mean: 83.8 cm/sec MV mean P.4 mmHg MV dec slope: 335.0 cm/sec2 Ao mean P.3 mmHg MV V2 VTI: 26.4 cm MVA(P1/2t): 3.0 cm2 Ao V2 VTI: 30.4 cm AV (velocity ratio): 0.95 AI max alley: 341.2 cm/sec LV V1 max: 127.4 cm/sec PA V2 max: 87.0 cm/sec AI max P.6 mmHg LV V1 max P.5 mmHg PA V2 mean: 59.4 cm/sec LV V1 mean P.0 mmHg AI dec slope: 136.5 cm/sec2 LV V1 mean: 79.3 cm/sec AI P1/2t: 732.1 msec LV V1 VTI: 29.0 cm TR max alley: 212.4 cm/sec TR max P.0 mmHg ECHO/Echo Complete Interpretation Summary The estimated ejection fraction is 65 %. No evidence for diastolic dysfunction. Trivial aortic valve insufficiency. Ordering Physician: Yris Rao Referring Physician: Anne Arellano Performed By: Flores Weiss, JENNY, RVT 01/19/25 1424 Date Rafia Reyes MD CC: Dr. Anne Arellano MD; Dr. Marky Lund DO; Dr. Yris Rao MD Date Dictated: 01/19/25819 Date Transcribed: 01/19/25 142 Digital Color Press Operator: Signed Normal [facility] Emergency Department Summary on 01-18-2025 Emergency Department Summary [facility] Medical Records Department [address] [place] [address] Emergency Department Summary 01/18/25 MR#: [id number] Acct: [id number] Name: CHARAN GARCIA Rep #: [id number] : 1960 64 From: Jorge Villareal DO PCP: Dr. Anne Arellano MD Status:ADM IN Location: [place] [address] HPI History of Present Illness Chief Complaint: Neuro S/Sx PFSH [facility] Medical History (Updated 01/18/25 @ 17:54 by Maurizio Estrada) Hyperlipidemia HTN (hypertension) CVA (cerebral vascular accident) Hiatal hernia GERD (gastroesophageal reflux disease) Home Medications ???Medication ???Instructions ???Recorded ???Last Taken ???Type esomeprazole magnesium 20 mg 40 mg PO Q12H 11/26/22 11/26/22 Hi story capsule,delayed release cholecalciferol (vitamin D3) 125 125 mcg PO QDAY 07/20/24 Unknown H istory mcg (5,000 unit) capsule Held on 01/18/25. Instructions: Order Completed clopidogrel 75 mg tablet (Plavix) 75 mg PO QDAY 07/20/24 Unknown Hi story losartan 100 mg tablet 100 mg PO QDAY 07/20/24 Unknown Hi story naproxen sodium 220 mg capsule 220 mg PO Q12H PRN pain 07/20/24 U nknown History (Aleve) rosuvastatin 10 mg tablet (Crestor) 10 mg PO QDAY 07/20/24 Unknown History meloxicam 15 mg tablet 15 mg PO DAILY 01/18/25 Unknown Hi story prednisone 20 mg tablet 20 mg PO DAILY 01/18/25 Unknown Hi story Allergy/AdvReac Type Severity Reaction Status Date / Time No Known Allergies Allergy Verified 11/26/22 12:00 Family History (Updated 11/26/22 @ 16:[address] Charan Martinez MD) Mother CVA (cerebral vascular accident) Surgical History (Updated 11/26/22 @ 15:30 by Quynh Goldberg) History of ankle surgery Social History (Updated 07/20/24 @ 14:18 by Erin Guerrero) Smoking Status: Heavy Smoker (>10/day) substance use type: marijuana EXAM Physical Exam Const Vital Signs: 01/18/25 16:57 01/18/25 17:10 01/18/25 17:14 Temperature 97.9 F 98.6 F Temperature Source Oral Oral Pulse Rate 97 86 Respiratory Rate 16 18 Blood Pressure 174/97 H 168/76 H Blood Pressure Mean 122 106 Pulse Ox 99 98 Oxygen Delivery Method Room Air Room Air Room Air 01/18/25 17:17 01/18/25 17:29 01/18/25 17:43 Temperature 98.7 F 97.8 F 98.7 F Temperature Source Oral Oral Oral Pulse Rate 85 79 70 Respiratory Rate 15 18 22 H Blood Pressure 164/74 H 162/76 H 162/72 H Blood Pressure Mean 104 104 102 Pulse Ox 98 98 97 Oxygen Delivery Method Room Air Room Air Room Air 01/18/25 17:56 Temperature 97.8 F Temperature Source Pulse Rate 75 Respiratory Rate 13 Blood Pressure 162/72 H Blood Pressure Mean 102 Pulse Ox 96 Oxygen Delivery Method [facility] Narrative Medical decision making narrative: HISTORY OF PRESENT ILLNESS: Chief complaint: 64-year-old male history of CVA, GERD, hypertension, hyperlipidemia presents with acute onset of speech difficulties and facial drooping. Last known well was 1400 on 01/18/2025. Denies blood thinners. Denies recent head trauma. Per the patient significant other speech is much different. Per staff, the patient's face is also asymmetric. REVIEW OF SYSTEMS: Pertinent positives: Speech difficulty, facial drooping Pertinent negatives: Headache, chest pain PHYSICAL EXAM: Nursing triage notes reviewed, Vital signs reviewed Constitutional: please see [facility] HENT: MMM Eyes: Pupils equal round and reactive to light, Extraocular muscles intact Neck: No stridor, no JVD, full neck ROM Lungs: Clear to auscultation, No wheezing or rales. No increased work of breathing, no conversational dyspnea, no accessory muscle use, no nasal flaring. No respiratory distress noted Heart: Regular rate and rhythm, No murmurs, No rubs and No gallops, 2+ distal pulses (radial, femoral, posterior tibial) in all extremities Abdomen: Soft, there is no tenderness, rigidity, rebound or guarding, no obvious peritoneal signs, no palpable pulsatile abdominal masses, no auscultated abdominal bruit : No CVAT Extremities: No edema Neuro: alert, oriented , left-sided facial droop noted, aphasia, dysarthria noted. No obvious extremity weakness or ataxia noted. No obvious sensory deficits. Patient follows commands. NIH of 4 Skin: No rash or lesions noted MEDICAL DECISION MAKING: Chief Complaint: please see [facility] External records reviewed: Reviewed prior medications. No anticoagulants noted. The patient is on aspirin and Plavix however. Reviewed prior imaging studies: Reviewed MRI of the brain from 2022 which showed subacute ischemic infarct in the right upper alessio Factors affecting care: as per HPI Social determinants of health: History of tobacco abuse History obtained from others: The patient significant other (more content not included)... Normal [facility] Eosinophil percentageOrdered By: Jorge Villareal on 01-18-2025 Eosinophils/100 WBC (Bld) 0.0 % 0-5 [facility] Erythrocyte distribution wid th ratioOrdered By: Jorge Villareal on 01-18-2025 Erythrocyte distribution width (RBC) [Ratio] 13.5 % 11.6-14.6 [facility] Erythrocyte distribution wid th standard deviationOrdered By: Jorge Villareal on 01-18-2025 Erythrocyte distribution width (RBC) [Ratio] 47.9 fl High 35.1-43.9 [facility] Glomerular filtration rate ( GFR) estimation/1.73 sq m using serum, plasma, or whole bOrdered By: Jorge Villareal on 01-18-2025 GFR/1.73 sq M.predicted among non-blacks MDRD (S/P/Bld) [Vol rate/Area] 99 mL/min/{1.73_m2} >60 [facility] Comment on above: mL/min/1.73m2 CKD-EP I Creatinine Equation (2020) H AND P Exam - [facility] 01-18-2025 H&P Exam - Hospitalist [facility] Medical Records Department [address] [place] [address] H P Exam - Hospitalist 01/18/25 1835 MR#: [id number] Acct: [id number] Name: CHARAN GARCIA Rep #: [id number] : 1960 64 From: Yris Rao MD PCP: Dr. Anne Arellano MD Status:ADM IN Location: [facility] [id number] HPI - General General Date of Admission: 01/18/25 Date of Service: 01/19/25 Chief Complaint: Left hand weakness, left facial droop and slurred speech HPI Narrative CHARAN GARCIA, is a 64-year-old male with a history of GERD, hypertension, tobacco use, CVA who presented to [facility] ED 01/18/2025 due to acute onset of speech difficulties and facial drooping with last known well 1400 on day of presentation. Patient was a stroke alert in the ED. In the ED NIH initially 4. Patient afebrile, heart rate 97 and blood pressure 174/97, respiratory rate 16 pulse ox 99% on room air. CBC with white count of 7 and hemoglobin 16.1. BMP with a bicarb of 19.6, normal gap, glucose 119 otherwise no acute abnormalities. Troponin 6. CT brain with multiple scattered areas of presumably embolic acute infarct involving anterior right temporal lobe, right posterior frontal parietal lobes and left occipital lobe and CTA without LVO. Patient evaluated by telestroke in the ED and it was recommended patient be admitted for further stroke workup given the findings. Hospitalist contacted for admission. Patient evaluated bedside, he revealed that he did have intermittent numbness in tingling in various fingertips on his left hand that would last for 10 minutes and go away over the past 3 weeks and then on he had significant weakness in his left hand, he saw his PCP because he thought it was his neck or his elbow and was going to undergo workup for that however today at 2 PM developed slurred speech and left-sided facial droop prompting him to come to the ED. Patient feels similar to how he did when he arrived except he is intermittently getting the tingling feeling in his fingertips. Denies any recent fevers or chills, no headache or changes in vision, no other numbness, weakness, tingling. Does continue to smoke but has been cutting back. [facility] Medical History (Updated 01/19/25 @ 13:[address] Yris Rao MD) CVA (cerebral vascular accident) GERD (gastroesophageal reflux disease) Hiatal hernia HTN (hypertension) Hyperlipidemia Home Medications ???Medication ???Instructions ???Recorded ???Last Taken ???Type esomeprazole magnesium 20 mg 20 mg PO Q12H gerd 11/26/22 History capsule,delayed release cholecalciferol (vitamin D3) 125 125 mcg PO QDAY 07/20/24 Unknown H istory mcg (5,000 unit) capsule Held on 01/18/25. Instructions: Order Completed clopidogrel 75 mg tablet (Plavix) 75 mg PO QDAY 07/20/24 Unknown Hi story losartan 100 mg tablet 100 mg PO QDAY 07/20/24 Unknown Hi story naproxen sodium 220 mg capsule 220 mg PO Q12H PRN pain 07/20/24 U nknown History (Aleve) rosuvastatin 10 mg tablet (Crestor) 10 mg PO QDAY 07/20/24 Unknown History meloxicam 15 mg tablet 15 mg PO DAILY 01/18/25 Unknown Hi story prednisone 20 mg tablet 20 mg PO DAILY 01/18/25 Unknown Hi story Allergy/AdvReac Type Severity Reaction Status Date / Time No Known Allergies Allergy Verified 11/26/22 12:00 Family History (Updated 11/26/22 @ 16:[address] Charan Martinez MD) Mother CVA (cerebral vascular accident) Surgical History (Updated 11/26/22 @ 15:30 by Quynh Goldberg) History of ankle surgery Social History (Updated 07/20/24 @ 14:18 by Erin Guerrero) Smoking Status: Heavy Smoker (>10/day) substance use type: marijuana ROS ROS Narrative General: Denies fever/chills HENT: Denies headache, denies stuffy nose, denies sore throat EYES: Denies changes in vision Resp: Denies cough, denies shortness of breath Cardiac: Denies chest pain GI: Denies abdominal pain, denies changes in bowel, denies nausea/vomiting : Denies changes in urination Extremity: Denies swelling MSK: Weakness in left upper extremity neuro: Intermittent tingling in several fingertips and left arm Heme: Denies any bleeding or bruising Skin: Denies rashes Psychiatric: No complaints voiced Vital Signs Vital Signs Vital Signs: 01/18/25 16:57 01/18/25 17:10 01/18/25 17:14 Temperature 97.9 F 98.6 F Temperature Source Oral Oral Pulse Rate 97 86 Respiratory Rate 16 18 Blood Pressure 174/97 H 168/76 H Blood Pressure Mean 122 106 Pulse Ox 99 98 Oxygen Delivery Method Room Air Room Air Room Air 01/18/25 17:17 01/18/25 17:29 01/18/25 17:43 Temperature 98.7 F 97.8 F 98.7 F Temperature Source Oral Oral Oral Pulse Rate 85 79 70 Respiratory Rate 15 18 22 H Blood Pressure 164/74 H 162/76 H 162/72 H Blood Pres (more content not included)... Normal [facility] Hematocrit Auto (Bld) [Volum e fraction]Ordered By: Jorge Villareal on 01-18-2025 Hematocrit (Bld) [Volume fraction] 45.0 % 40-54 [facility] Hemoglobin measurementOrdere d By: Jorge Villareal on 01-18-2025 Hemoglobin (Bld) [Mass/Vol] 16.1 g/dL 13.0-16.5 [facility] Immature granulocytes/100 WB C Auto (Bld)Ordered By: Jorge Villareal on 01-18-2025 Immature granulocytes/100 WBC (Bld) 0.100 % 0.0-0.9 [facility] Comment on above: IG% - Immature Granu locytes (promyelocytes, myelocytes and metamyelocytes) > 1% indicates that a LEFT SHIFT is Present. International normalized rat io (INR) calculationOrdered By: Jorge Villareal on 01-18-2025 INR Coag (Bld) [Relative time] 1.0 {INR} [facility] L501.4021on 01-18-2025 Trop T High Sen 6 ng/L Normal <=22 [facility] Comment on above: Performed By: #### L 100.0100, L300.3900, L501.4021, L300.4310, L500.2500 ####[facility] [address] [place], [place], [id number] MCV (mean corpuscular volume ) determinationOrdered By: Jorge Villareal on 01-18-2025 MCV (RBC) [Entitic vol] 96.2 fL High 80-94 [facility] Mean corpuscular hemoglobin (MCH) determinationOrdered By: Jorge Villareal on 01-18-2025 MCH (RBC) [Entitic mass] 34.4 pg High 27.0-32.0 [facility] Mean corpuscular hemoglobin concentration (MCHC) determinationOrdered By: Jorge Villareal on 01-18-2025 MCHC (RBC) [Mass/Vol] 35.8 g/dL 32-36 [facility] Mean platelet volume determi nationOrdered By: Jorge Villareal on 01-18-2025 Platelet mean volume (Bld) [Entitic vol] 9.5 fL 6.2-12.0 [facility] Monocyte percentageOrdered B y: Jorge Villareal on 01-18-2025 Monocytes/100 WBC (Bld) 2.7 % 0-10 [facility] Neutrophil percentageOrdered By: Jorge Villareal on 01-18-2025 Neutrophils/100 WBC (Bld) 87.7 % High 47-70 [facility] Nucleated red blood cell per centageOrdered By: Jorge Villareal on 01-18-2025 Nucleated RBC/100 WBC (Bld) [Ratio] 0 % 0-5 [facility] Partial Thromboplast Timeon 01-18-2025 aPTT Coag (Bld) [Time] 29.8 s Normal 24.1-36.2 [facility] Comment on above: Performed By: #### L 100.0100, L300.3900, L501.4021, L300.4310, L500.2500 ####[facility] [address] [place], [address] Platelet countOrdered By: Jewels Villareal on 01-18-2025 Platelets (Bld) [#/Vol] 293 10*3/uL 150-450 [facility] Potassium measurement (mass/ volume)Ordered By: Jorge Villareal on 01-18-2025 Potassium (Unsp spec) [Mass/Vol] 3.7 mmol/L 3.3-5.1 [facility] Comment on above: Hemolysis present, R esults could be affected. Prothrombin Time w/INRon INR Coag (PPP) [Relative time] 1.0 {INR} Normal [facility] Comment on above: Performed By: #### L 100.0100, L300.3900, L501.4021, L300.4310, L500.2500 ####[facility] [address] [place], [address] PT Coag (PPP) [Time] 12.9 s Normal 11.7-14.9 [facility] Comment on above: Performed By: #### L 100.0100, L300.3900, L501.4021, L300.4310, L500.2500 ####[facility] [address] [place], [place], [address] Prothrombin timeOrdered By: Jorge Villareal on 01-18-2025 PT Coag (PPP) [Time] 12.9 s 11.7-14.9 [facility] RBC Auto (Bld) [#/Vol]Ordere d By: Jorge Villareal on 01-18-2025 RBC (Bld) [#/Vol] 4.68 10*6/uL 4.6-6.2 [facility] STROKE Brain/Head without Co nton 01-18-2025 STROKE Brain/Head without Cont [facility] Imaging Services [address] [place], [place] [address] STROKE Brain/Head without Cont MR#: [id number] Acct: [id number] Name: CHARAN GARCIA Rep #: [id number] : 1960 M 64 From: Milton Thomas MD PCP: Dr. Anne Arellano MD Status: REG ER Study: STROKE Brain/Head without Cont Date of Exam: 0 01/18/25 Exam# [id number] Ordering Dr: Jorge Villareal DO PROCEDURE: STROKE CT BRAIN/HEAD WITHOUT CONTRAST STROKE CTA HEAD AND NECK WITH IV CONTRAST REASON FOR EXAM: NEURO DEFICIT, ACUTE, STROKE SUSPECTED TECHNIQUE: Procedure Code: CTBR.ST; CTCTA.ST.HN Modality: CT Procedure: STROKE BRAIN/HEAD WITHOUT CONT; STROKE CTA HEAD AND NECK W/CON Multiplanar 2D reconstructions, and 3D / MIP post processing was performed. 100 cc of Isovue 370 intravenous contrast was administered. One or more dose reduction techniques were used (e.g., Automated exposure control, adjustment of the mA and/or kV according to patient size, use of iterative reconstruction technique. RADIATION DOSE SUMMARY: CT head: DLP: 849.54 mGycm CTA head/neck: DLP: 1624.82 mGycm COMPARISON: Brain MRI 11/27/2022. CT head 11/26/2022. FINDINGS: NONCONTRAST CT HEAD: Multiple scattered small areas of acute infarct involving the anterior right temporal lobe, right posterior frontoparietal lobes, and left occipital lobe, presumably embolic. No acute intracranial hemorrhage/hemorrhagic conversion on this exam. No extra-axial collection, mass-effect, or hydrocephalus. Unremarkable orbits. Well-aerated sinuses and mastoid air cells. CTA HEAD: Patent major intracranial arterial vasculature. No large vessel occlusion, significant flow-limiting stenosis, saccular aneurysm, or vascular malformation identified. Patent dural venous sinuses. CTA NECK: Conventional aortic arch branching. Bilateral cervical carotid and vertebral arteries are patent without stenosis. No aneurysm or dissection. Dominant left vertebral artery supplies the posterior circulation, with diffusely hypoplastic nondominant right vertebral artery which terminates distally at PICA branches. Mild mixed atheromatous plaque at the carotid bifurcations without any significant luminal narrowing. CT/STROKE Brain/Head without Cont IMPRESSION: 1. 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 2. No acute intracranial hemorrhage/hemorrhagic conversion, or mass-effect. 3. No intracranial or cervical large vessel arterial occlusion or significant stenosis. Reading Location: [id number] CC: Dr. Anne Arellano MD; Dr. Jorge Villareal DO Digital Color Press Operator: Signed Normal [facility] STROKE CTA Head AND Neck W/C onon 01-18-2025 STROKE CTA Head AND Neck W/Con [facility] Imaging Services [address] [place] [address] STROKE CTA Head AND Neck W/Con MR#: [id number] Acct: [id number] Name: CHARAN GARCIA Rep #: [id number] : 1960 M 64 From: Milton Thomas MD PCP: Dr. Anne Arellano MD Status: REG ER Study: STROKE CTA Head AND Neck W/Con Date of Exam: 0 01/18/25 Exam# [id number] Ordering Dr: Jorge Villareal DO PROCEDURE: STROKE CT BRAIN/HEAD WITHOUT CONTRAST STROKE CTA HEAD AND NECK WITH IV CONTRAST REASON FOR EXAM: NEURO DEFICIT, ACUTE, STROKE SUSPECTED TECHNIQUE: Procedure Code: CTBR.ST; CTCTA.ST.HN Modality: CT Procedure: STROKE BRAIN/HEAD WITHOUT CONT; STROKE CTA HEAD AND NECK W/CON Multiplanar 2D reconstructions, and 3D / MIP post processing was performed. 100 cc of Isovue 370 intravenous contrast was administered. One or more dose reduction techniques were used (e.g., Automated exposure control, adjustment of the mA and/or kV according to patient size, use of iterative reconstruction technique. RADIATION DOSE SUMMARY: CT head: DLP: 849.54 mGycm CTA head/neck: DLP: 1624.82 mGycm COMPARISON: Brain MRI 11/27/2022. CT head 11/26/2022. FINDINGS: NONCONTRAST CT HEAD: Multiple scattered small areas of acute infarct involving the anterior right temporal lobe, right posterior frontoparietal lobes, and left occipital lobe, presumably embolic. No acute intracranial hemorrhage/hemorrhagic conversion on this exam. No extra-axial collection, mass-effect, or hydrocephalus. Unremarkable orbits. Well-aerated sinuses and mastoid air cells. CTA HEAD: Patent major intracranial arterial vasculature. No large vessel occlusion, significant flow-limiting stenosis, saccular aneurysm, or vascular malformation identified. Patent dural venous sinuses. CTA NECK: Conventional aortic arch branching. Bilateral cervical carotid and vertebral arteries are patent without stenosis. No aneurysm or dissection. Dominant left vertebral artery supplies the posterior circulation, with diffusely hypoplastic nondominant right vertebral artery which terminates distally at PICA branches. Mild mixed atheromatous plaque at the carotid bifurcations without any significant luminal narrowing. CT/STROKE CTA Head AND Neck W/Con IMPRESSION: 1. 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 2. No acute intracranial hemorrhage/hemorrhagic conversion, or mass-effect. 3. No intracranial or cervical large vessel arterial occlusion or significant stenosis. Reading Location: [id number] CC: Dr. Anne Arellano MD; Dr. Jorge Villareal DO Digital Color Press Operator: Signed Normal [facility] Serum creatinine measurement (mass/volume)Ordered By: Jorge Villareal on 01-18-2025 Creatinine [Mass/Vol] 0.76 mg/dL 0.70-1.20 [facility] Serum glucose measurement (m ass/volume)Ordered By: Jorge Villareal on 01-18-2025 Glucose [Mass/Vol] 119 mg/dL High 70-99 [facility] Serum or plasma calcium leonardo urement (mass/volume)Ordered By: Jorge Villareal on 01-18-2025 Calcium [Mass/Vol] 9.2 mg/dL 7.6-11.0 [facility] Serum or plasma urea nitroge n measurement (mass/volume)Ordered By: Jorge Villareal on 01-18-2025 Urea nitrogen [Mass/Vol] 14 mg/dL 4-19 [facility] Sodium levelOrdered By: Joao Villareal on 01-18-2025 Sodium [Moles/Vol] 139 mmol/L 133-145 [facility] Troponin T HS 2 HRon 025 Trop T High Sen 10 ng/L Normal <=22 [facility] Comment on above: Performed By: #### L 499.0042 ####[facility] [address] [place], [place], [address] Troponin T HS 4 HRon 025 Trop T High Sen 8 ng/L Normal <=22 [facility] Comment on above: Performed By: #### L 499.0043 #### [facility] [address] [place], [place], [address] Troponin T.cardiac [Mass/vol ume] in Serum or Plasma by High sensitivity methodOrdered By: Jorge Villareal on 01-18-2025 Troponin T.cardiac High sensitivity method [Mass/Vol] 8 ng/L <22 [facility] Troponin T.cardiac High sensitivity method [Mass/Vol] 10 ng/L <22 [facility] Troponin T.cardiac High sensitivity method [Mass/Vol] 6 ng/L <22 [facility] White blood cell (WBC) count Ordered By: Jorge Villareal on 01-18-2025 WBC (Bld) [#/Vol] 7.0 10*3/uL 4.4-11.0 [facility] Wrist min 3 Viewson 01-18-20 25 Wrist min 3 Views [facility] Imaging Services [address] [place] [address] Wrist min 3 Views MR#: [id number] Acct: [id number] Name: CHARAN GARCIA Rep #: [id number] : 1960 M 64 From: Marky Haji MD PCP: Dr. Anne Arellano MD Status: REG CLI Study: Wrist min 3 Views Date of Exam: 01/17/25 Exam# [id number] Ordering Dr: Anne Arellano MD EXAM: XR Left Wrist Complete, 3 or More Views CLINICAL INDICATION: PAIN WITH NUMBNESS TECHNIQUE: Frontal, lateral and oblique views of the left wrist. COMPARISON: No relevant prior studies available. FINDINGS: BONES/JOINTS: Small bony fragment of the triquetrum could be avulsion fracture of indeterminate age. Mild widening of the scapholunate joint space concerning for ligamentous injury. Further evaluation with MRI is recommended. 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 Mild degenerative changes of the intercarpal joints. Moderate degenerative change of the 1st carpometacarpal joint. No dislocation. SOFT TISSUES: Unremarkable. No radiopaque foreign body. RAD/Wrist min 3 Views IMPRESSION: 1. Small bony fragment of the triquetrum could be avulsion fracture of indeterminate age. 2. Mild widening of the scapholunate joint space concerning for ligamentous injury. Further evaluation with MRI is recommended. 3. Degenerative changes as above. Reading Location: [facility] CC: Dr. Anne Arellano MD Digital Color Press Operator: Signed Normal [facility] PSA, total screeningOrdered By: Tae Gardiner on 08-26-2024 Prostate Specific Antigen Screen 3.02 ng/mL 0.02-4.00 [facility] Comment on above: This test was [...] 08-26-2024 PSA,TOT SCREEN 3.02 ng/mL Normal 0.02-4.00 [facility] Comment on above: Order Comment: Order [...] baseline values. Performed By: #### L 501.9910 ####[facility] [address] [facility]. [place], [place], [address] CT Chest, Abd, Pel w/Contras ton 08-23-2024 CT Chest, Abd, Pel w/Contrast [facility] Imaging Services [address] [place], [place] [address] CT Chest, Abd, Pel w/Contrast MR#: [id number] Acct: [id number] Name: CHARAN GARCIA Rep #: [id number] : 1960 M 64 From: Josefina Nicole MD PCP: Dr. Anne Arellano MD Status: REG CLI Study: CT Chest, Abd, Pel w/Contrast Date of Exam: Exam# [id number] Ordering Dr: Oliver Dang DO PROCEDURE: CT [...] *Diverticulosis within the sigmoid colon. Reading Location: [id number] CC: Dr. Anne Arellano MD; Oliver Dang DO Digital Color Press Operator: Signed Normal [facility] Gastroenterology Visit Repor ton 07-20-2024 Gastroenterology Visit Report [facility] Gastroenterology [address] [place] [address] OFFICE VISIT Date of Service: 07/20/24 MR#: [id number] Acct: [id number] Name: CHARAN GARCIA A Rep #: [id number] : 1960 Provider: Oliver Dang DO Age/Sex: 64/M [place] [facility] [place] Status: Signed Intake Vital Signs 06/12/24 18:32 [...] to the office today for initial consult. *BGI established 3.5.25 pt reports that he is unsure why he is here. Pt states he had an EGD about "6 months ago" and has previously had HB, but changed [...] Nutritional Appearance: average body habitus Orientation: alert [facility] Ears: hearing grossly normal bilaterally Nose: external [...] pelvis. Order (more content not included)... Normal [facility] 12 Lead EKGon 06-12-2024 12 Lead EKG [facility] Cardiovascular Services [address] [place] [address] 12 Lead EKG 06/12/24 1836 MR#: [id number] Acct: [id number] Name: CHARAN GARCIA Rep #: [id number] : 1960 64 From: Raifa Reyes MD Attending Dr: Status: DEP ER [...] Normal sinus rhythm Normal ECG Confirmed by AMY NEGRON, ADAM ([id number]), editor city ALIX PENA ([id number]) on 06/14/2024 6:19:01 AM Referred By: MONO Confirmed By: ADAM REYES MD 06/14/24 0619 Date Rafia Reyes MD CC: Dr. Elvis Gonzalez DO; Dr. Anne Arellano MD Signed Normal [facility] Absolute neutrophil countOrd ered By: Elvis Gonzalez on 06-12-2024 Neutrophils (Bld) [#/Vol] 5.3 10*3/uL 2.0-7.7 [facility] Albumin to globulin ratioOrd ered By: Elvis Gonzalez on 06-12-2024 Albumin/Globulin [Mass ratio] 1.0 {ratio} 0.9-2.4 [facility] BNP (brain natriuretic pepti de measurement)Ordered By: Elvis Gonzalez on 06-12-2024 Natriuretic peptide B (Bld) [Mass/Vol] 12.2 pg/mL 0-100 [facility] BNP,B-Type NATRIURETIC PEPTI Duc 06-12-2024 Natriuretic peptide B (Bld) [Mass/Vol] 12.2 pg/mL Normal 0-100 [facility] Comment on above: Performed By: #### L 300.4310, L300.3900, L100.0100, L300.8000, L503.6620 #### [facility] Laboratory [address] [place], [address] Basophil percentageOrdered B y: Elvis Gonzalez on 06-12-2024 Basophils/100 WBC (Bld) 0.6 % 0-1 [facility] Bilirubin, totalOrdered By: Elvismelanie Gonzalez on 06-12-2024 Bilirubin [Mass/Vol] 0.30 mg/dL 0.20-1.00 [facility] Comment on above: For patients on eltr ombopag therapy, use of Dimension [place] TBIL is not recommended. Blood urea nitrogen (BUN)/cr eatinine ratioOrdered By: Elvis Lisa on 06-12-2024 Urea nitrogen/Creatinine [Mass ratio] 14.7 mg/mg 10- [facility] CBC W/Diff, Automatedon 05-19 Absolute Lymph 2.06 X10 3/uL Normal 0.83-4.51 [facility] Comment on above: Performed By: #### L 300.4310, L300.3900, L100.0100, L300.8000, L503.6620 #### [facility] [address] [place], [address] Absolute Neut 5.3 X10 3/uL Normal 2.0-7.7 [facility] Comment on above: Performed By: #### L 300.4310, L300.3900, L100.0100, L300.8000, L503.6620 #### [facility] [address] [place], [address] Basophils/100 WBC (Bld) 0.6 % Normal 0-1 [facility] Comment on above: Performed By: #### L 300.4310, L300.3900, L100.0100, L300.8000, L503.6620 #### [facility] [address] [place], [address] Eosinophils/100 WBC (Bld) 4.3 % Normal 0-5 [facility] Comment on above: Performed By: #### L 300.4310, L300.3900, L100.0100, L300.8000, L503.6620 #### [facility] [address] [place], [address] Erythrocyte distribution width (RBC) [Ratio] 13.8 % Normal 11.6-14.6 [facility] Comment on above: Performed By: #### L 300.4310, L300.3900, L100.0100, L300.8000, L503.6620 #### [facility] [address] [place], [address] Hematocrit (Bld) [Volume fraction] 43.5 % Normal 40-54 [facility] Comment on above: Performed By: #### L 300.4310, L300.3900, L100.0100, L300.8000, L503.6620 #### [facility] [address] [place], [address] Hemoglobin (Bld) [Mass/Vol] 15.0 g/dL Normal 13.0-16.5 [facility] Comment on above: Performed By: #### L 300.4310, L300.3900, L100.0100, L300.8000, L503.6620 #### [facility] [address] [place], [address] IG% 0.400 Normal 0.0-0.9 [facility] Comment on above: Result Comment: IG% - Immature Granulocytes (promyelocytes, myelocytes and metamyelocytes) > 1% indicates that a LEFT SHIFT is Present. Performed By: #### L 300.4310, L300.3900, L100.0100, L300.8000, L503.6620 #### [facility] [address] [place], [address] Lymphocytes/100 WBC (Bld) 24.2 % Normal 19-41 [facility] Comment on above: Performed By: #### L 300.4310, L300.3900, L100.0100, L300.8000, L503.6620 #### [facility] [address] [place], [address] MCH (RBC) [Entitic mass] 33.1 pg High 27.0-32.0 [facility] Comment on above: Performed By: #### L 300.4310, L300.3900, L100.0100, L300.8000, L503.6620 #### [facility] [address] [place], [address] MCHC (RBC) [Mass/Vol] 34.5 g/dL Normal 32-36 [facility] Comment on above: Performed By: #### L 300.4310, L300.3900, L100.0100, L300.8000, L503.6620 #### [facility] [address] [place], [address] MCV (RBC) [Entitic vol] 96.0 fL High 80-94 [facility] Comment on above: Performed By: #### L 300.4310, L300.3900, L100.0100, L300.8000, L503.6620 #### [facility] [address] [place], [address] Monocytes/100 WBC (Bld) 8.9 % Normal 0-10 [facility] Comment on above: Performed By: #### L 300.4310, L300.3900, L100.0100, L300.8000, L503.6620 #### [facility] [address] [place], [address] Neutrophils/100 WBC (Bld) 61.6 % Normal 47-70 [facility] Comment on above: Performed By: #### L 300.4310, L300.3900, L100.0100, L300.8000, L503.6620 #### [facility] [address] [place], [address] Nucleated RBC (Bld) [#/Vol] 0 10*3/uL Normal 0-5 [facility] Comment on above: Performed By: #### L 300.4310, L300.3900, L100.0100, L300.8000, L503.6620 #### [facility] [address] [place], [address] Platelet mean volume (Bld) [Entitic vol] 10.2 fL Normal 6.2-12.0 [facility] Comment on above: Performed By: #### L 300.4310, L300.3900, L100.0100, L300.8000, L503.6620 #### [facility] [address] [place], [address] Platelets (Bld) [#/Vol] 204 10*3/uL Normal 150-450 [facility] Comment on above: Performed By: #### L 300.4310, L300.3900, L100.0100, L300.8000, L503.6620 #### [facility] [address] [place], [address] RBC (Bld) [#/Vol] 4.53 10*6/uL Low 4.6-6.2 [facility] Comment on above: Performed By: #### L 300.4310, L300.3900, L100.0100, L300.8000, L503.6620 #### [facility] [address] [place], [address] RDW SD 49.1 fl High 35.1-43.9 [facility] Comment on above: Performed By: #### L 300.4310, L300.3900, L100.0100, L300.8000, L503.6620 #### [facility] [address] [place], [address] WBC (Bld) [#/Vol] 8.5 10*3/uL Normal 4.4-11.0 [facility] Comment on above: Performed By: #### L 300.4310, L300.3900, L100.0100, L300.8000, L503.6620 #### [facility] [address] [place], [address] Carbon dioxide measurementOr dered By: Elvis Gonzalez on 06-12-2024 CO2 [Moles/Vol] 27.0 mmol/L 21.0-32.0 [facility] Chest 1 View (Portable)on Chest 1 View (Portable) [facility] Imaging Services [address] [place] [address] Chest 1 View (Portable) MR#: [id number] Acct: [id number] Name: CHARAN GARCIA Rep #: [id number] : 1960 64 From: Mauro Lowery PCP: Dr. Anne Arellano MD Status: REG ER Study: Chest 1 View (Portable) Date of Exam: 06/12/24 Exam# [id number] Ordering Dr: Elvis Gonzalez DO [id number] EXAM: XR CHEST, 1 VIEW CLINICAL INDICATION: [...] 20:44 EST Reading Location ID and State: [facility] / [place] , Service support , CC: Dr. Elvis Gonzalez, DO; Dr. 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, [address] Albumin/Globulin [Mass ratio] 1.0 {ratio} Normal 0.9-2.4 [facility] Comment on above: Order Comment: 1Y Performed By: #### L 501.5425, L501.2450, L500.4050 ####[facility] [address] [place], [address] ALK P 81 U/L Normal 45-117 [facility] Comment on above: Order Comment: 1Y Performed By: #### L 501.5425, L501.2450, L500.4050 ####[facility] [address] [place], [address] ALT [Catalytic activity/Vol] 25 U/L Normal 16-61 [facility] Comment on above: Order Comment: 1Y Performed By: #### L 501.5425, L501.2450, L500.4050 ####[facility] [address] [place], [address] AST [Catalytic activity/Vol] 15 U/L Normal 15-37 [facility] Comment on above: Order Comment: 1Y Performed By: #### L 501.5425, L501.2450, L500.4050 ####[facility] [address] [place], [address] Bilirubin [Mass/Vol] 0.30 mg/dL Normal 0.20-1.00 [facility] Comment on above: Order Comment: 1Y Result Comment: For patients on eltrombopag therapy, use of Dimension [place] TBIL is not recommended. Performed By: #### L 501.5425, L501.2450, L500.4050 ####[facility] [address] [place], [address] BUN/CRE 14.7 RATIO Normal 10-20 [facility] Comment on above: Order Comment: 1Y Performed By: #### L 501.5425, L501.2450, L500.4050 ####[facility] [address] [place], [address] CA,Total 8.9 mg/dL Normal 8.5-10.1 [facility] Comment on above: Order Comment: 1Y Performed By: #### L 501.5425, L501.2450, L500.4050 ####[facility] [address] [place], [address] Chloride [Moles/Vol] 108 mmol/L High 98-107 [facility] Comment on above: Order Comment: 1Y Performed By: #### L 501.5425, L501.2450, L500.4050 ####[facility] [address] [place], [address] CO2 [Moles/Vol] 27.0 mmol/L Normal 21.0-32.0 [facility] Comment on above: Order Comment: 1Y Performed By: #### L 501.5425, L501.2450, L500.4050 ####[facility] [address] [place], [address] Creatinine [Mass/Vol] 0.95 mg/dL Normal 0.70-1.30 [facility] Comment on above: Order Comment: 1Y Result Comment: The validity of the calculated GFR GFRAA in patients over 70 years has not been determined. Clinical correlation is essential. Performed By: #### L 501.5425, L501.2450, L500.4050 ####[facility] [address] [place], [address] EST GFR - AA 101 mL/min Normal >60 [facility] Comment on above: Order Comment: 1Y Result Comment: Afri can Dutch GFR Calc Performed By: #### L 501.5425, L501.2450, L500.4050 ####[facility] [address] [place], [address] GAP 4 Low 5-15 [facility] Comment on above: Order Comment: 1Y Performed By: #### L 501.5425, L501.2450, L500.4050 ####[facility] [address] [place], [address] GFR/1.73 sq M.predicted among non-blacks MDRD (S/P/Bld) [Vol rate/Area] 84 mL/min/{1.73_m2} Normal >60 [facility] Comment on above: Order Comment: 1Y Result Comment: Non- GFR Calc Performed By: #### L 501.5425, L501.2450, L500.4050 ####[facility] [address] [place], [address] Globulin (S) [Mass/Vol] 3.5 g/dL Normal 2.2-4.2 [facility] Comment on above: Order Comment: 1Y Performed By: #### L 501.5425, L501.2450, L500.4050 ####[facility] [address] [place], [address] Glucose [Mass/Vol] 88 mg/dL Normal 74-106 [facility] Comment on above: Order Comment: 1Y Performed By: #### L 501.5425, L501.2450, L500.4050 ####[facility] [address] [place], [address] Potassium [Moles/Vol] 3.7 mmol/L Normal 3.5-5.1 [facility] Comment on above: Order Comment: 1Y Performed By: #### L 501.5425, L501.2450, L500.4050 ####[facility] [address] [place], [address] Sodium [Moles/Vol] 139 mmol/L Normal 136-145 [facility] Comment on above: Order Comment: 1Y Performed By: #### L 501.5425, L501.2450, L500.4050 ####[facility] [address] [place], [address] T PROT 6.9 g/dL Normal 6.4-8.2 [facility] Comment on above: Order Comment: 1Y Performed By: #### L 501.5425, L501.2450, L500.4050 ####[facility] [address] [place], [address] Urea nitrogen [Mass/Vol] 14 mg/dL Normal 7-18 [facility] Comment on above: Order Comment: 1Y Performed By: #### L 501.5425, L501.2450, L500.4050 ####[facility] [address] [place], [address] D-Dimer Quantitative (DVT/PE )on 06-12-2024 D-DIMER QUANT 0.40 FEU/ug/m Normal 0.27-0.49 [facility] Comment on above: Result Comment: NORM AL D-Dimer level (<0.50) indicates no DVT or PE. Performed By: #### L 300.4310, L300.3900, L100.0100, L300.8000, L503.6620 #### [facility] Laboratory [address] [place], [address] D-dimer measurement for deep venous thrombosisOrdered By: Elvis Gonzalez on 06-12-2024 D-Dimer Quantitative (PE/DVT) 0.40 FEU/ug/m 0.27-0.49 [facility] Comment on above: NORMAL D-Dimer level (<0.50) indicates no DVT or PE. Emergency Department Summary on 06-12-2024 Emergency Department Summary [facility] Medical Records Department [address] [place] [address] Emergency Department Summary 06/12/24 MR#: [id number] Acct: [id number] Name: CHARAN GARCIA Rep #: [id number] : 1960 64 From: Elvis Gonzalez DO [...] grossly intact, sensation intact Psych: Cooperative, anxious [facility] Medical History GERD (gastroesophageal reflux disease) Home [...] On reevaluation, (more content not included)... Normal [facility] Eosinophil percentageOrdered By: Elvis Gonzalez on 06-12-2024 Eosinophils/100 WBC (Bld) 4.3 % 0-5 [facility] Erythrocyte distribution wid th (RBC) [Ratio]Ordered By: Elvis Gonzalez on 06-12-2024 Erythrocyte distribution width (RBC) [Entitic vol] 49.1 fL High 35.1-43.9 [facility] Erythrocyte distribution wid th ratioOrdered By: Elvis Gonzalez on 06-12-2024 Erythrocyte distribution width (RBC) [Ratio] 13.8 % 11.6-14.6 [facility] Estimated glomerular filtrat ion rate (GFR) AmericanOrdered By: Elvis Gonzalez on 06-12-2024 Estimated GFR (MDRD) Amer 101 mL/min >60 [facility] Comment on above: GFR Calc Glomerular filtration rate ( GFR) estimationOrdered By: Elvis Gonzalez on 06-12-2024 Estimated GFR (MDRD) Non-Af Amer 84 mL/min >60 [facility] Comment on above: Non- GFR Calc Glucose measurementOrdered B y: Elvis CastromoniqueFrederick on 06-12-2024 Glucose [Mass/Vol] 88 mg/dL 74-106 [facility] Hematocrit Auto (Bld) [Volum e fraction]Ordered By: Elvis andrewFrederick on 06-12-2024 Hematocrit (Bld) [Volume fraction] 43.5 % 40-54 [facility] Hemoglobin measurementOrdere d [facility]: [facility] Hemoglobin (Bld) [Mass/Vol] 15.0 g/dL 13.0-16.5 [facility] Immature granulocytes/100 WB C Auto (Bld)Ordered By: [facility] on 06-12-2024 Immature granulocytes/100 WBC (Bld) 0.400 % 0.0-0.9 [facility] Comment on above: IG% - Immature Granu locytes (promyelocytes, myelocytes and metamyelocytes) > 1% indicates that a LEFT SHIFT is Present. International normalized rat io (INR) calculationOrdered By: Elvismelanie RaymondFrederick on 06-12-2024 INR Coag (Bld) [Relative time] 0.9 {INR} [facility] L501.4020on 06-12-2024 TROPONIN-I HS 20 pg/mL Normal 3.0-78.0 [facility] Comment on above: Result Comment: Brie steve Note: New Test Units and Gender Specific Reference Ranges. For more information see Policy Stat Procedure [place] High Sensitivity Troponin (TNIH) and attachments. Performed By: #### L 501.4020 ####[facility] [address] [place], [place], [address] L501.5425on 06-12-2024 TROPONIN-I HS 18 pg/mL Normal 3.0-78.0 [facility] Comment on above: Order Comment: 1Y Result Comment: Brie steve Note: New Test Units and Gender Specific Reference Ranges. For more information see Policy Stat Procedure [place] High Sensitivity Troponin (TNIH) and attachments. Performed By: #### L 501.5425, L501.2450, L500.4050 ####[facility] [address] [place], [place], [address] Laboratory - Chemistry and C hemistry - challengeOrdered By: Elvis Gonzalez on 06-12-2024 AST [Catalytic activity/Vol] 15 U/L 15-37 [facility] Lipaseon 06-12-2024 Lipase [Catalytic activity/Vol] 21 U/L Normal 13-75 [facility] Comment on above: Order Comment: 1Y Result Comment: Brie steve note: LIPASE revised reference range effective 22. New Lipase methodology. Expected to produce lower values than the previous assay method. NEW Reference Range: 13 - 75 U/L Performed By: #### L 501.5425, L501.2450, L500.4050 ####[facility] [address] [place], [place], [address] Lipase measurementOrdered By : Elvis Gonzalez on 06-12-2024 Lipase [Catalytic activity/Vol] 21 U/L 13-75 [facility] Comment on above: Please note:LIPASE r evised reference range effective 22. New Lipase methodology. Expected to produce lower values than the previous assay method. NEW Reference Range: 13 - 75 U/L Lymphocytes Auto (Unsp spec) [#/Vol]Ordered By: Elvis Gonzalez on 06-12-2024 Lymphocytes (Bld) [#/Vol] 2.06 10*3/uL 0.83-4.51 [facility] Lymphocytes/100 WBC Auto (Un sp spec)Ordered By: Elvis Gonzalez on 06-12-2024 Lymphocytes/100 WBC (Bld) 24.2 % 19-41 [facility] MCV (mean corpuscular volume ) determinationOrdered By: Elvis Gonzalez on 06-12-2024 MCV (RBC) [Entitic vol] 96.0 fL High 80-94 [facility] Mean corpuscular hemoglobin (MCH) determinationOrdered By: Elvis Gonzalez on 06-12-2024 MCH (RBC) [Entitic mass] 33.1 pg High 27.0-32.0 [facility] Mean corpuscular hemoglobin concentration (MCHC) determinationOrdered By: Elvis Gonzalez on 06-12-2024 MCHC (RBC) [Mass/Vol] 34.5 g/dL 32-36 [facility] Mean platelet volume determi nationOrdered By: Elvis Gonzalez on 06-12-2024 Platelet mean volume (Bld) [Entitic vol] 10.2 fL 6.2-12.0 [facility] Monocyte percentageOrdered B y: Elvis Gonzalez on 06-12-2024 Monocytes/100 WBC (Bld) 8.9 % 0-10 [facility] [facility] Neutrophil percentageOrdered By: Elvis Gonzalez on 06-12-2024 Neutrophils/100 WBC (Bld) 61.6 % 47-70 [facility] Nucleated red blood cell per centageOrdered By: Ridgeway Lisa on 06-12-2024 Nucleated RBC/100 WBC (Bld) [Ratio] 0 % 0-5 [facility] Partial Thromboplast Timeon 06-12-2024 aPTT Coag (Bld) [Time] 21.5 s Low 24.1-36.2 [facility] Comment on above: Performed By: #### L 300.4310, L300.3900, L100.0100, L300.8000, [id number] #### [facility] [address] [place], [address] Platelet countOrdered By: Jed Gonzalez on 06-12-2024 Platelets (Bld) [#/Vol] 204 10*3/uL 150-450 [facility] Potassium measurementOrdered By: Elvis Gonzalez on 06-12-2024 Potassium [Moles/Vol] 3.7 mmol/L 3.5-5.1 [facility] Prothrombin Time w/INRon INR Coag (PPP) [Relative time] 0.9 {INR} Normal [facility] Comment on above: Performed By: #### L 300.4310, L300.3900, L100.0100, L300.8000, [id number] #### [facility] [address] [place], [address] PT Coag (PPP) [Time] 12.5 s Normal 11.7-14.9 [facility] Comment on above: Performed By: #### L 300.4310, L300.3900, L100.0100, L300.8000, [id number] #### [facility] [address] [place], [address] Prothrombin timeOrdered By: Elvis Gonzalez on 06-12-2024 PT Coag (PPP) [Time] 12.5 s 11.7-14.9 [facility] RBC Auto (Bld) [#/Vol]Ordere d By: Elvis Gonzalez on 06-12-2024 RBC (Bld) [#/Vol] 4.53 10*6/uL Low 4.6-6.2 [facility] Serum anion gap measurementO rdered By: Elvis Gonzalez on 06-12-2024 Anion gap [Moles/Vol] 4 mmol/L Low 5-15 [facility] Serum globulin measurementOr dered By: Elvis Gonzalez on 06-12-2024 Globulin (S) [Mass/Vol] 3.5 g/dL 2.2-4.2 [facility] Serum or plasma alanine best otransferase (ALT) measurementOrdered By: Elvis Gonzalez on 06-12-2024 ALT [Catalytic activity/Vol] 25 U/L 16-61 [facility] Serum or plasma albumin leonardo urement (mass/volume)Ordered By: Elvis Mack on 06-12-2024 Albumin [Mass/Vol] 3.4 g/dL 3.2-5.0 [facility] Serum or plasma alkaline rhina sphatase measurementOrdered By: Elvis Gonzalez on 06-12-2024 ALP [Catalytic activity/Vol] 81 U/L 45-117 [facility] Serum or plasma calcium leonardo urement (mass/volume)Ordered By: Elvis Mack on 06-12-2024 Calcium [Mass/Vol] 8.9 mg/dL 8.5-10.1 [facility] Serum or plasma creatinine m easurement (mass/volume)Ordered By: Elvis Mack on 06-12-2024 Creatinine [Mass/Vol] 0.95 mg/dL 0.70-1.30 [facility] Comment on above: The validity of the calculated GFR & GFRAA in patients over 70 years has not been determined. Clinical correlation is essential. Serum or plasma urea nitroge n measurement (mass/volume)Ordered By: Elvis Gonzalez on 06-12-2024 Urea nitrogen [Mass/Vol] 14 mg/dL 7-18 [facility] Sodium levelOrdered By: Agustin Gonzalez on 06-12-2024 Sodium [Moles/Vol] 139 mmol/L 136-145 [facility] Total proteinOrdered By: Shaheen Gonzalez on 06-12-2024 Protein [Mass/Vol] 6.9 g/dL 6.4-8.2 [facility] Troponin IOrdered By: Elvis Gonzalez on 06-12-2024 Troponin I High Sensitivity 20 pg/mL 3.0-78.0 [facility] Comment on above: Please Note: New Denice t Units and Gender Specific Reference Ranges. For more information see Policy Stat Procedure [place] High Sensitivity Troponin (TNIH) and attachments. White blood cell (WBC) count Ordered By: Elvis Gonzalez on 06-12-2024 WBC (Bld) [#/Vol] 8.5 10*3/uL 4.4-11.0 [facility] aPTT Coag (PPP) [Time]Ordere d By: Elvis Gonzalez on 06-12-2024 aPTT Coag (Bld) [Time] 21.5 s Low 24.1-36.2 [facility] Absolute lymphocyte countOrd ered By: Dulce Phillips on 02-26-2023 Lymphocytes Auto (Unsp spec) [#/Vol] 1.48 10*3/uL 0.83-4.51 [facility] Basophil percentageOrdered B y: Dulce Phillips on 02-26-2023 Basophils/100 WBC (Bld) 0.9 % 0-1 [facility] Bilirubin [Mass/Vol] 0.40 mg/dL 0.20-1.00 [facility] Comment on above: For patients on eltr ombopag therapy, use of Dimension [place] TBIL is not recommended. Chloride [Moles/Vol] 105 mmol/L 98-107 [facility] Eosinophils/100 WBC (Bld) 4.9 % 0-5 [facility] Glucose [Mass/Vol] 97 mg/dL 74-106 [facility] Neutrophils (Bld) [#/Vol] 4.1 10*3/uL 2.0-7.7 [facility] Neutrophils/100 WBC (Bld) 63.0 % 47-70 [facility] Potassium [Moles/Vol] 3.3 mmol/L 3.5-5.1 [facility] Protein [Mass/Vol] 7.1 g/dL 6.4-8.2 [facility] Sodium [Moles/Vol] 139 mmol/L 136-145 [facility] WBC (Bld) [#/Vol] 6.5 10*3/uL 4.4-11.0 [facility] Blood erythrocytes count (nu mber/volume)Ordered By: Dulce Phillips on 02-26-2023 RBC (Bld) [#/Vol] 4.72 10*6/uL 4.6-6.2 [facility] Blood hemoglobin measurement (mass/volume)Ordered By: Dulce Phillips on 02-26-2023 Hemoglobin (Bld) [Mass/Vol] 15.4 g/dL 13.0-16.5 [facility] Blood lymphocytes/100 leukoc ytesOrdered By: Dulce Phillips on 02-26-2023 Lymphocytes/100 WBC (Bld) 22.8 % 19-41 [facility] Blood monocytes/100 leukocyt esOrdered By: Dulce Phillips on 02-26-2023 Monocytes/100 WBC (Bld) 7.9 % 0-10 [facility] Blood platelet mean volumeOr dered By: Dulce Phillips on 02-26-2023 Platelet mean volume (Bld) [Entitic vol] 9.8 fL 6.2-12.0 [facility] Determination of erythrocyte mean corpuscular volume (MCV)Ordered By: Dulce Phillips on 02-26-2023 MCV (RBC) [Entitic vol] 100.0 fL 80-94 [facility] Hematocrit Auto (Bld) [Volum e fraction]Ordered By: Dulce Phillips on 02-26-2023 Hematocrit (Bld) [Volume fraction] 47.2 % 40-54 [facility] - Chemistry and C hemistry - challengeOrdered By: Dulce Phillips on 02-26-2023 ALP [Catalytic activity/Vol] 105 U/L 45-117 [facility] ALT [Catalytic activity/Vol] 43 U/L 16-61 [facility] CO2 [Moles/Vol] 28.0 mmol/L 21.0-32.0 [facility] Cobalamin (Vitamin B12) [Mass/Vol] 799 pg/mL 211-911 [facility] Globulin (S) [Mass/Vol] 3.6 g/dL 2.2-4.2 [facility] Magnesium [Mass/Vol] 2.5 mg/dL 1.6-2.6 [facility] Urea nitrogen/Creatinine [Mass ratio] 19.5 mg/mg 10-20 [facility] - Hematology and Cell countsOrdered By: Dulce Phillips on 02-26-2023 Erythrocyte distribution width (RBC) [Entitic vol] 50.6 fL 35.1-43.9 [facility] Erythrocyte distribution width (RBC) [Ratio] 13.7 % 11.6-14.6 [facility] Immature granulocytes/100 WBC (Bld) 0.500 % 0.0-0.9 [facility] Comment on above: IG% - Immature Granu locytes (promyelocytes, myelocytes and metamyelocytes) > 1% indicates that a LEFT SHIFT is Present. MCH (RBC) [Entitic mass] 32.6 pg 27.0-32.0 [facility] Nucleated RBC/100 WBC (Bld) [Ratio] 0 % 0-5 [facility] MCHC Auto (RBC) [Mass/Vol]Or dered By: Dulce Phillips on 02-26-2023 MCHC (RBC) [Mass/Vol] 32.6 g/dL 32-36 [facility] No Panel InformationOrdered By: Dulce Phillips on 02-26-2023 Estimated GFR (MDRD) Amer 121 mL/min >60 [facility] Comment on above: GFR Calc Estimated GFR (MDRD) Non-Af Amer 100 mL/min >60 [facility] Comment on above: Non- GFR Calc Thyroid Stimulating Hormone (TSH) 1.99 uIU/mL 0.358-3.74 [facility] Vitamin D 25-Hydroxy 31.7 ng/mL [facility] Comment on above: Vitamin D 25(OH) Sta tus Range Deficiency <20 ng/mL (50nmol/L) Insufficiency 20 - 30 ng/mL (50 - 75 nmol/L) Sufficiency 30 - 100 ng/mL (75 - 250 nmol/L) Toxicity >100 ng/mL (>250 nmol/L) Platelets bldOrdered By: Haley Phillips on 02-26-2023 Platelets (Bld) [#/Vol] 338 10*3/uL 150-450 [facility] Serum or plasma albumin leonardo urement (mass/volume)Ordered By: Dulce Phillips on 02-26-2023 Albumin [Mass/Vol] 3.5 g/dL 3.2-5.0 [facility] Serum or plasma albumin/glob ulin mass ratioOrdered By: Dulce Phillips on 02-26-2023 Albumin/Globulin [Mass ratio] 1.0 {ratio} 0.9-2.4 [facility] Serum or plasma calcium leonardo urement (mass/volume)Ordered By: Dulce Phillips on 02-26-2023 Calcium [Mass/Vol] 8.5 mg/dL 8.5-10.1 [facility] Serum or plasma creatinine m easurement (mass/volume)Ordered By: Dulce Phillips on 02-26-2023 Creatinine [Mass/Vol] 0.82 mg/dL 0.70-1.30 [facility] Comment on above: The validity of the calculated GFR & GFRAA in patients over 70 years has not been determined. Clinical correlation is essential. Serum or plasma ferritin fozia surement (mass/volume)Ordered By: Dulce Phillips on 02-26-2023 Ferritin [Mass/Vol] 159 ng/mL 26-388 [facility] Serum or plasma folate measu rement (mass/volume)Ordered By: Dulce Phillips on 02-26-2023 Folate [Mass/Vol] 10.10 ng/mL 3.1-55.4 [facility] Serum or plasma urea nitroge n measurement (mass/volume)Ordered By: Dulce Phillips on 02-26-2023 Urea nitrogen [Mass/Vol] 16 mg/dL 7-18 [facility] Thin prep Papanicolaou smear with manual screeningOrdered By: Dulce Phillips on 02-26-2023 Thin prep Papanicolaou smear with manual screening 17 U/L 15-37 [facility] Thin prep Papanicolaou smear with manual screening 6 5-15 [facility] Whole blood hemoglobin A1c/t otal hemoglobin ratio (mass fraction)Ordered By: Dulce Phillips on 02-26-2023 HbA1c (Bld) [Mass fraction] 5.4 % 3.8-5.6 [facility] Comment on above: Normal < 5.7 % Predi abetic 5.7 - 6.4 % Diabetic >or= 6.5 % Please note range changes. Absolute lymphocyte countOrd ered By: Charan Martinez on 11-27-2022 Lymphocytes Auto (Unsp spec) [#/Vol] 1.36 10*3/uL 0.83-4.51 [facility] Basophil percentageOrdered B y: Charan Martinez on 11-27-2022 Basophil percentage 2.6 mg/dL 2.5-4.9 [facility] Basophils/100 WBC (Bld) 0.8 % 0-1 [facility] Bilirubin [Mass/Vol] 0.50 mg/dL 0.20-1.00 [facility] Comment on above: For patients on eltr ombopag therapy, use of Dimension [place] TBIL is not recommended. Chloride [Moles/Vol] 111 mmol/L 98-107 [facility] Cholesterol [Mass/Vol] 201 mg/dL <200 [facility] Comment on above: <200 mg/dL Desirable 200-240 mg/dL Borderline >240 mg/dL High Risk Eosinophils/100 WBC (Bld) 3.7 % 0-5 [facility] Glucose [Mass/Vol] 93 mg/dL 74-106 [facility] Neutrophils (Bld) [#/Vol] 4.3 10*3/uL 2.0-7.7 [facility] Neutrophils/100 WBC (Bld) 66.4 % 47-70 [facility] Potassium [Moles/Vol] 3.7 mmol/L 3.5-5.1 [facility] Protein [Mass/Vol] 5.6 g/dL 6.4-8.2 [facility] Sodium [Moles/Vol] 139 mmol/L 136-145 [facility] Triglyceride [Mass/Vol] 116 mg/dL <199 [facility] Comment on above: The drugs N-Acetylcy steine and Metamizole may falsely depress this assay.Serum Triglycerides Reference Interval Normal <150 mg/dL Borderline high 150 - 199 mg/dL High 200 - 499 mg/dL Very High > or = 500 mg/dL WBC (Bld) [#/Vol] 6.5 10*3/uL 4.4-11.0 [facility] Blood erythrocytes count (nu mber/volume)Ordered By: Charan Martinez on 11-27-2022 RBC (Bld) [#/Vol] 4.30 10*6/uL 4.6-6.2 [facility] Blood hemoglobin measurement (mass/volume)Ordered By: Charan Martinez on 11-27-2022 Hemoglobin (Bld) [Mass/Vol] 14.1 g/dL 13.0-16.5 [facility] Blood lymphocytes/100 leukoc ytesOrdered By: Charan Martinez on 11-27-2022 Lymphocytes/100 WBC (Bld) 20.8 % 19-41 [facility] Blood monocytes/100 leukocyt esOrdered By: Charan Martinez on 11-27-2022 Monocytes/100 WBC (Bld) 8.0 % 0-10 [facility] Blood platelet mean volumeOr dered By: Charan Martinez on 11-27-2022 Platelet mean volume (Bld) [Entitic vol] 9.6 fL 6.2-12.0 [facility] Determination of erythrocyte mean corpuscular volume (MCV)Ordered By: Charan Martinez on 11-27-2022 MCV (RBC) [Entitic vol] 96.7 fL 80-94 [facility] Hematocrit Auto (Bld) [Volum e fraction]Ordered By: Charan Martinez on 11-27-2022 Hematocrit (Bld) [Volume fraction] 41.6 % 40-54 [facility] - Chemistry and C hemistry - challengeOrdered By: Charan Martinez on 11-27-2022 ALP [Catalytic activity/Vol] 59 U/L 45-117 [facility] ALT [Catalytic activity/Vol] 16 U/L 16-61 [facility] CO2 [Moles/Vol] 25.0 mmol/L 21.0-32.0 [facility] Globulin (S) [Mass/Vol] 2.8 g/dL 2.2-4.2 [facility] Magnesium [Mass/Vol] 2.1 mg/dL 1.6-2.6 [facility] Urea nitrogen/Creatinine [Mass ratio] 19.4 mg/mg 10-20 [facility] - Hematology and Cell countsOrdered By: Charan Martinez on 11-27-2022 Erythrocyte distribution width (RBC) [Entitic vol] 48.3 fL 35.1-43.9 [facility] Erythrocyte distribution width (RBC) [Ratio] 13.5 % 11.6-14.6 [facility] Immature granulocytes/100 WBC (Bld) 0.300 % 0.0-0.9 [facility] Comment on above: IG% - Immature Granu locytes (promyelocytes, myelocytes and metamyelocytes) > 1% indicates that a LEFT SHIFT is Present. MCH (RBC) [Entitic mass] 32.8 pg 27.0-32.0 [facility] Nucleated RBC/100 WBC (Bld) [Ratio] 0 % 0-5 [facility] MCHC Auto (RBC) [Mass/Vol]Or dered By: Charan Martinez on 11-27-2022 MCHC (RBC) [Mass/Vol] 33.9 g/dL 32-36 [facility] No Panel InformationOrdered By: Charan Martinez on 11-27-2022 Estimated Creatinine Clearance Calc 83.01 ml/min [facility] Estimated GFR (MDRD) Amer 113 mL/min >60 [facility] Comment on above: GFR Calc Estimated GFR (MDRD) Non-Af Amer 93 mL/min >60 [facility] Comment on above: Non- GFR Calc Thyroid Stimulating Hormone (TSH) 2.62 uIU/mL 0.358-3.74 [facility] Platelets bldOrdered By: Peter Martinez on 11-27-2022 Platelets (Bld) [#/Vol] 239 10*3/uL 150-450 [facility] Serum or plasma albumin leonardo urement (mass/volume)Ordered By: Charan Martinez on 11-27-2022 Albumin [Mass/Vol] 2.8 g/dL 3.2-5.0 [facility] Serum or plasma albumin/glob ulin mass ratioOrdered By: Charan Martinez on 11-27-2022 Albumin/Globulin [Mass ratio] 1.0 {ratio} 0.9-2.4 [facility] Serum or plasma calcium leonardo urement (mass/volume)Ordered By: Chaarn Martinez on 11-27-2022 Calcium [Mass/Vol] 8.1 mg/dL 8.5-10.1 [facility] Serum or plasma cholesterol in HDL measurement (mass/volume)Ordered By: Charan Martinez on 11-27-2022 Cholesterol in HDL [Mass/Vol] 36 mg/dL >40 [facility] Comment on above: The drugs N-Acetylcy steine and Metamizole may falsely depress this assay. Reference Range HDL <40 mg/dL Low HDL Cholesterol HDL >or= 60 mg/dL High HDL Cholesterol Serum or plasma cholesterol in VLDL measurement (mass/volume)Ordered By: Charan Martinez on 11-27-2022 Cholesterol in VLDL [Mass/Vol] 23 mg/dL 5-40 [facility] Serum or plasma creatinine m easurement (mass/volume)Ordered By: Charan Martinez on 11-27-2022 Creatinine [Mass/Vol] 0.88 mg/dL 0.70-1.30 [facility] Comment on above: The validity of the calculated GFR & GFRAA in patients over 70 years has not been determined. Clinical correlation is essential. Serum or plasma low density lipoprotein (LDL) cholesterol measurement (mass/volume)Ordered By: Charan Martinez on 11-27-2022 Cholesterol in LDL [Mass/Vol] 142 mg/dL 0-130 [facility] Serum or plasma urea nitroge n measurement (mass/volume)Ordered By: Charan Martinez on 11-27-2022 Urea nitrogen [Mass/Vol] 17 mg/dL 7-18 [facility] Thin prep Papanicolaou smear with manual screeningOrdered By: Charan Martinez on 11-27-2022 Thin prep Papanicolaou smear with manual screening 9 U/L 15-37 [facility] Thin prep Papanicolaou smear with manual screening 3 5-15 [facility] Whole blood hemoglobin A1c/t otal hemoglobin ratio (mass fraction)Ordered By: Charan Martinez on 11-27-2022 HbA1c (Bld) [Mass fraction] 5.4 % 3.8-5.6 [facility] Comment on above: Normal < 5.7 % Predi abetic 5.7 - 6.4 % Diabetic >or= 6.5 % Please note range changes. Blood platelet adequacy dete ction by light microscopyOrdered By: Noé Vasquez on 11-26-2022 Platelets LM Ql (Bld) ADEQUATE ADEQ [facility] INR in Blood by Coagulation assayOrdered By: Noé Vasquez on 11-26-2022 INR Coag (Bld) [Relative time] 1.1 {INR} [facility] - CoagulationOrde red By: Noé Vasquez on 11-26-2022 aPTT Coag (Bld) [Time] 28.9 s 24.1-36.2 [facility] PT Coag (PPP) [Time] 14.0 s 11.7-14.9 [facility] No Panel InformationOrdered By: Noé Vasquez on 11-26-2022 Troponin I High Sensitivity 7 pg/mL 3.0-78.0 [facility] Comment on above: Please Note: New Denice t Units and Gender Specific Reference Ranges. For more information see Policy Stat Procedure [place] High Sensitivity Troponin (TNIH) and attachments. Vital Signs Date Time Vital Sign Value Performing Clinician Facility 02-28-2025 13:25-0400 Body height 173 cm Tania Winchester MD Work Phone: [facility] 02-28-2025 13:25-0400 Body height 173.35 cm Tania Winchester MD Work Phone: [facility] 02-28-2025 13:25-0400 Body mass index (BMI) [Ratio] 23.48 kg/m2 Tania Winchester MD Work Phone: [facility] 02-28-2025 13:25-0400 Body weight 70 kg Tania Winchester MD Work Phone: [facility] 02-28-2025 13:25-0400 Body weight 70.31 kg Tania Winchester MD Work Phone: [facility] 02-28-2025 13:25-0400 BP SITE #1 Tania Winchester MD Work Phone: [facility] 02-28-2025 13:25-0400 BP SITE #2 Tania Winchester MD Work Phone: [facility] 02-28-2025 13:25-0400 Diastolic blood pressure 83 mm[Hg] Tania Winchester MD Work Phone: [facility] 02-28-2025 13:25-0400 Diastolic blood pressure 80 mm[Hg] Tania Winchester MD Work Phone: [facility] 02-28-2025 13:25-0400 Heart rate 60 /min Tania Winchester MD Work Phone: [facility] 02-28-2025 13:25-0400 HGHTCHNVIS Tania Winchester MD Work Phone: [facility] 02-28-2025 13:25-0400 Systolic blood pressure 162 mm[Hg] Tania Winchester MD Work Phone: [facility] 02-28-2025 13:25-0400 Systolic blood pressure 171 mm[Hg] Tania Winchester MD Work Phone: [facility] 02-28-2025 13:25-0400 VITALSDONE Tania Winchester MD Work Phone: [facility] 01-19-2025 17:00-0400 Body mass index (BMI) [Ratio] 22 kg/m2 Anne Arellano MD Work Phone: [facility] 01-19-2025 14:00-0400 Diastolic blood pressure 87 mm[Hg] Anne Arellano MD Work Phone: [facility] 01-19-2025 14:00-0400 Heart rate 64 /min Anne Arellano MD Work Phone: [facility] 01-19-2025 14:00-0400 Respiratory rate 18 /min Anne Arellano MD Work Phone: [facility] 01-19-2025 14:00-0400 SaO2% (BldA) [Mass fraction] 100 % Anne Arellano MD Work Phone: [facility] 01-19-2025 14:00-0400 Systolic blood pressure 154 mm[Hg] Anne Arellano MD Work Phone: [facility] 01-19-2025 10:28-0400 Body height 175.26 cm Anne Arellano MD Work Phone: [facility] 01-19-2025 10:28-0400 Body weight 67.7 kg Anne Arellano MD Work Phone: [facility] 01-19-2025 09:34-0400 Body temperature 98.2 [degF] Anne Arellano MD Work Phone: [facility] 01-18-2025 18:29-0400 Body temperature 98.1 [degF] Anne Arellano MD Work Phone: [facility] 01-18-2025 18:29-0400 Diastolic blood pressure 80 mm[Hg] Anne Arellano MD Work Phone: 9(209)118-502509 [place] [address] 01-18-2025 18:29-0400 Heart rate 67 /min Anne Arellano MD Work Phone: 9(344)568-972809 [place] [address] 01-18-2025 18:29-0400 Respiratory rate 23 /min Anne Arellano MD Work Phone: 2(669)282-678653 [address] 01-18-2025 18:29-0400 SaO2% (BldA) [Mass fraction] 95 % Anne Arellano MD Work Phone: 8(305)271-575512 [place] [address] 01-18-2025 18:29-0400 Systolic blood pressure 158 mm[Hg] Anne Arellano MD Work Phone: 1(309)612-018853 [address] 01-18-2025 17:48-0400 Body height 175.26 cm Anne Arellano MD Work Phone: 4(987)969-407212 [place] [address] 01-18-2025 17:48-0400 Body mass index (BMI) [Ratio] 22.8 kg/m2 Anne Arellano MD Work Phone: 3(124)603-258612 [place] [address] 01-18-2025 17:48-0400 Body weight 70 kg Anne Arellano MD Work Phone: 7(083)[phone] [place] [address] 06-12-2024 22:20-0500 Body temperature 98.3 [degF] Anne Arellano MD Work Phone: 6(190)195-568309 [place] [address] 06-12-2024 22:20-0500 Diastolic blood pressure 76 mm[Hg] Anne Arellano MD Work Phone: [facility] 06-12-2024 22:20-0500 Heart rate 75 /min Anne Arellano MD Work Phone: [facility] 06-12-2024 22:20-0500 Respiratory rate 18 /min Anne Arellano MD Work Phone: [facility] 06-12-2024 22:20-0500 SaO2% (BldA) [Mass fraction] 96 % Anne Arellano MD Work Phone: [facility] 06-12-2024 22:20-0500 Systolic blood pressure 147 mm[Hg] Anne Arellano MD Work Phone: [facility] 06-12-2024 19:31-0500 Body mass index (BMI) [Ratio] 24.7 kg/m2 Anne Arellano MD Work Phone: [facility] 06-12-2024 19:31-0500 Body weight 76 kg Anne Arellano MD Work Phone: [facility] 06-12-2024 18:32-0500 Body height 175.26 cm Anne Arellano MD Work Phone: [facility] 06-01-2023 10:34-0500 Diastolic Blood Pressure Non-Invasive 74 mm[Hg] DR CHASIDY LAURENT MD [facility] 06-01-2023 10:34-0500 Heart rate 69 /min DR CHASIDY LAURENT MD [facility] 06-01-2023 10:34-0500 Respiratory rate 17 /min DR CHASIDY LAURENT MD [facility] 06-01-2023 10:34-0500 Systolic Blood Pressure Non-Invasive 135 mm[Hg] DR CHASIDY LAURENT MD [facility] 06-01-2023 10:23-0500 Heart rate 68 /min DR CHASIDY LAURENT MD [facility] 06-01-2023 10:23-0500 Respiratory rate 18 /min DR CHASIDY LAURENT MD [facility] 06-01-2023 10:16-0500 Diastolic Blood Pressure Non-Invasive 72 mm[Hg] DR CHASIDY LAURENT MD [facility] 06-01-2023 10:16-0500 Heart rate 74 /min DR CHASIDY LAURENT MD [facility] 06-01-2023 10:16-0500 Respiratory rate 17 /min DR CHASIDY LAURENT MD [facility] 06-01-2023 10:16-0500 Systolic Blood Pressure Non-Invasive 120 mm[Hg] DR CHASIDY LAURENT MD [facility] 06-01-2023 10:07-0500 Body temperature 96.62 [degF] DR CHASIDY LAURENT MD [facility] 06-01-2023 10:07-0500 Diastolic Blood Pressure Non-Invasive 77 mm[Hg] DR CHASIDY LAURENT MD [facility] 06-01-2023 10:07-0500 Systolic Blood Pressure Non-Invasive 116 mm[Hg] DR CHASIDY LAURENT MD [facility] 06-01-2023 10:05-0500 Respiratory Rate - Anes 5 br/min DR CHASIDY LAURENT MD [facility] 06-01-2023 10:00-0500 Respiratory Rate - Anes 23 br/min DR CHASIDY LAURENT MD [facility] 06-01-2023 08:34-0500 Body height 172.[address] CHASIDY LAURENT MD [facility] 06-01-2023 08:34-0500 Body temperature 98.24 [degF] DR CHASIDY LAURENT MD [facility] 06-01-2023 08:34-0500 Body weight [address] CHASIDY LAURENT MD [facility] 06-01-2023 08:34-0500 Heart rate 72 /min DR CHASIDY LAURENT MD [facility] 11-28-2022 12:06-0400 Body temperature 97.9 [degF] No Primary Care Physician [facility] 11-28-2022 12:06-0400 Diastolic blood pressure 78 mm[Hg] No Primary Care Physician [facility] 11-28-2022 12:06-0400 Heart rate 51 /min No Primary Care Physician [facility] 11-28-2022 12:06-0400 Respiratory rate 17 /min No Primary Care Physician [facility] 11-28-2022 12:06-0400 SaO2% (BldA) [Mass fraction] 98 % No Primary Care Physician [facility] 11-28-2022 12:06-0400 Systolic blood pressure 146 mm[Hg] No Primary Care Physician [facility] 11-28-2022 12:00-0400 Body mass index (BMI) [Ratio] 22.5 kg/m2 No Primary Care Physician [facility] 11-27-2022 11:35-0400 Body height 175.26 cm No Primary Care Physician [facility] 11-27-2022 11:35-0400 Body weight 69 kg No Primary Care Physician [facility] Encounters Encounter Date Encounter Type Care Provider Facility Start: 03-24-2025 ambulatory [facility] Facility:[facility] Start: 03-08-2025 End: 03-08-2025 ambulatory [facility] Facility:[facility] Start: 02-28-2025 Visit out of hours Tania marks MD Work Phone: [employer] Work Phone: Start: 02-28-2025 In-person encounter Tania kenny MD Work Phone: [employer] [facility] Work Phone: Start: 01-31-2025 ambulatory Marky Jimenez y:[facility] Start: 01-19-2025 Non-patient / Non-visit Dr. Marky Lund DO -[facility] Work Phone: Start: 01-19-[facility] Start: 01-19-2025 Non-patient / Non-visit Dr. Rafia Reyes MD -[facility] Start: 01-18-2025 ambulatory Yris Rao Facility:[facility] Start: 01-18-2025 End: 01-19-2025 Evaluation and management of inpatient Dr. Yris Rao MD -Progressive Care Unit Work Phone: Start: 01-17-2025 End: 01-17-2025 ambulatory Anne Arellano MD Work Phone: -[facility] [place] Start: 01-17-2025 End: 01-17-[address] Anne Arellano MD -[facility] [place] Work Phone: Start: 01-17-2025 End: 01-17-2025 ambulatory Anne Arellano Facility:[facility] Start: 08-26-2024 End: 08-26-2024 ambulatory Anne Arellano MD Work Phone: [facility] Work Phone: Start: 08-26-2024 End: 08-26-2024 Patient encounter procedure Tae McMorrow ENERGY TRADER-C -Laboratory, [facility] Start: 08-26-2024 End: 08-26-2024 [facility] Start: 08-23-2024 End: 08-23-2024 ambulatory Anne Arellano MD Work Phone: [facility] Work Phone: Start: 08-23-2024 End: 08-23-2024 Patient encounter procedure Oliver Dang DO -Cat Scan, [facility] Work Phone: Start: 08-23-2024 End: 08-23-2024 ambulatory Oliver Dang Facility:[facility] Start: 07-20-2024 End: 07-20-2024 Patient encounter procedure Oliverjose Dang -[facility] Work Phone: Start: 07-20-2024 End: 07-20-2024 ambulatory Oliver Dang Facility:[facility] Start: 06-12-2024 End: 06-12-2024 Emergency department patient visit Dr. Elvis Gonzalez DO -Emergency Department Work Phone: Start: 06-01-2023 End: 06-01-[address] CHASIDY LAURENT MD Facility:[facility] Start: 06-01-2023 End: 06-01-[address] CHASIDY LARUENT MD [facility] Start: 02-26-2023 End: 02-26-2023 ambulatory No Primary Care Physician [facility] Work Phone: Start: 02-26-2023 End: 02-26-2023 Patient encounter procedure No Primary Care Physician [facility] Start: 11-28-2022 Non-patient / Non-visit No Primary Care Physician [facility] Work Phone: Start: 11-27-2022 End: 11-28-2022 Evaluation and management of inpatient No Primary Care Physician [facility]-Progressive Care Unit Work Phone: Start: 11-27-2022 Non-patient / Non-visit No Primary Care Physician [facility] Start: 11-26-2022 Non-patient / Non-visit No Primary Care Physician [facility] Work Phone: Procedures Date Procedure Procedure Detail Performing Clinician Start: 02-28-2025 Blood pressure outsi de of normal parameters - follow-up documented Tania Winchester MD Work Phone: Start: 02-28-2025 Documentation of cur rent medications Tania Winchester MD Work Phone: Start: 02-28-2025 Pt scrnd tobacco use rcvd tobacco cessation talk Tania Winchester MD Work Phone: Start: 02-28-2025 Pain assessment docu mented as negative - follow-up not required Tania Winchester MD Work Phone: Start: 01-19-2025 MRI of brain without contrast Anne Arellano MD Work Phone: Start: 01-19-2025 Estimated creatinine clearance Anne Arellano MD Work Phone: Start: 01-18-2025 CT angiography of he ad and neck Anne Arellano MD Work Phone: Start: 01-18-2025 CT of head without contrast Anne Arellano MD Work Phone: Start: 01-18-2025 Estimated creatinine clearance Anne Arellano MD Work Phone: Start: 01-17-2025 Plain x-ray of wrist Ch cooper Arellano MD Work Phone: Start: 08-23-2024 CT of thorax, abdome n [...] Treatment Date Care Activity Detail Author Start: 02-28-2025 EMG/NCT left upper extremity [employer] Work Phone: Start: 02-28-2025 Radex hand minimum 3 views [employer] Work Phone: Start: 01-19-2025 Patient discharge [facility] Start: 01-18-2025 Application of intermittent pneumatic compression device [facility] Start: 01-18-2025 Aspiration precautions [facility] Start: 01-18-2025 Cardiac monitoring [facility] Start: 01-18-2025 Catheterization of vein [facility] Start: 01-18-2025 Consultation [facility] Start: 01-18-2025 Continuous pulse oximetry [facility] Start: 01-18-2025 Elevation of head of bed [facility] Start: 01-18-2025 Exercises [facility] Start: 01-18-2025 Notification of physician [facility] Start: 01-18-2025 Oxygen therapy [facility] Start: 01-18-2025 Patient referral to dietitian [facility] Start: 01-18-2025 Referral to occupational therapist [facility] Start: 01-18-2025 Referral to service [facility] Start: 01-18-2025 Speech therapy assessment [facility] Start: 01-18-2025 Telemedicine consultation with patient [facility] Start: 01-18-2025 Tobacco use cessation education [facility] Start: 01-18-2025 Vital signs measurements [facility] Start: 01-18-2025 Assessment of risk of venous thromboembolism [facility] Start: 01-18-2025 Insertion of catheter into peripheral vein [facility] Start: 01-18-2025 Measuring intake and output [facility] Start: 01-18-2025 Providing care according to standard [facility] Start: 01-18-2025 End: 01-18-2025 [facility] Start: 01-18-2025 Following clinical pathway protocol [facility] Start: 01-18-2025 Admission procedure [facility] Start: 01-18-2025 Hospital admission, emergency, from emergency room, medical nature [facility] Start: 01-18-2025 [facility] Start: 01-18-2025 Consultation [facility] Start: 01-18-2025 Inhalation therapy procedure [facility] Start: 06-12-2024 [facility] Start: 06-12-2024 [facility] Start: 11-28-2022 Patient discharge [facility] Start: 11-27-2022 Admission procedure [facility] Start: 11-27-2022 Telepractice consultation [facility] Start: 11-26-2022 Following clinical pathway protocol [facility] Start: 11-26-2022 Ambulation without limitation [facility] Start: 11-26-2022 Assessment of risk of venous thromboembolism [facility] Start: 11-26-2022 Cardiac monitoring [facility] Start: 11-26-2022 Catheterization of vein [facility] Start: 11-26-2022 Elevation of head of bed [facility] Start: 11-26-2022 Exercises [facility] Start: 11-26-2022 Implementation of planned interventions [facility] Start: 11-26-2022 Insertion of catheter into peripheral vein [facility] Start: 11-26-2022 Measuring intake and output [facility] Start: 11-26-2022 Notification of physician [facility] Start: 11-26-2022 Oxygen therapy [facility] Start: 11-26-2022 Patient referral to dietitian [facility] Start: 11-26-2022 Providing care according to standard [facility] Start: 11-26-2022 Referral to occupational therapist [facility] Start: 11-26-2022 Referral to service [facility] Start: 11-26-2022 Speech therapy assessment [facility] Start: 11-26-2022 Tobacco use cessation education [facility] Start: 11-26-2022 [facility] Start: 11-26-2022 Admission procedure [facility] Start: 11-26-2022 [facility] Start: 11-26-2022 Patient referral to [facility] Cardiac event recording [facility] Patient Education ED Chest Pain, Uncertain Cause [facility] Work Phone: Patient referral [facility] Work Phone: Troponin T.cardiac [Mass/volume] in Serum or Plasma by High sensitivity method [facility] Troponin T.cardiac [Mass/volume] in Serum or Plasma by High sensitivity method [facility] Immunizations Immunization Date Immunization Notes Care Provider Fa cility 01-17-2021 Covid (Pfizer) No Primary Ca re Physician [facility] 12-20-2020 Covid (Pfizer) No Primary Ca re Physician [facility] Payers Date Payer Category Payer Medicare [id number] 2024 Self-pay [id number] 2023 Medicare [id number] 255 [id number] 1960 Unknown [id number] 2.16.8 [id number] Unknown [id number] 2.16.8 [id number] Unknown [id number] 2.16.8 [id number] Unknown [id number] 2.16.8 [id number] Unknown [id number] 2.16.8 [id number] Unknown [id number] 2.16.8 [id number] Unknown [id number] 2.16.8 [id number] Unknown [id number] 2.16.8 [id number] Unknown [id number] 2.16.8 [id number] Unknown [id number] 2.16.8 [id number] Unknown [id number] 2.16.8 [id number] Unknown [id number] 2.16.8 [id number] Unknown [id number] 2.16.8 [id number] Social History Date Type Detail Facility Start: 11-28-2022 End: 02-28-2025 Tobacco smoking status NHIS Unknown if ever smoked [facility] Start: 11-28-2022 Cigarettes [facility] Start: 1960 Sex Assigned At Male [facility] Start: 06-01-2023 End: 01-18-2025 Tobacco smoking status Heavy tobacco smoker (finding) [facility] Start: 07-20-2024 End: 02-28-2025 Tobacco smoking status NHIS Smokes tobacco daily (finding) [facility] Start: 08-26-2024 End: 08-31-2024 Sex Male (finding) [facility] Start: 02-28-2025 social history revie wed E&M Done [employer] Work Phone: Start: 02-28-2025 smoking/tobacco cessation, patient education and counseling Smoking cessation education (procedure) [employer] Work Phone: Goals Date Patient Goal Desired Activity /State Functional Status Date Assessment Result Facility 01-19-2025 Functional status Chair [facility] Work Phone: 06-01-2023 Functional Status Repositions self [facility] 06-01-2023 Functional Status Maintained [facility] 11-28-2022 Functional status Ambulates [facility] Work Phone: Mental Status Date Assessment Result Facility 01-19-2025 Cognitive function Voice/Name [facility] Work Phone: 01-18-2025 Cognitive function Voice/Name [facility] Work Phone: 06-12-2024 Cognitive function Voice/Name [facility] Work Phone: 06-01-2023 Mental Status Orientation Oriented x 4 [facility] 06-01-2023 Mental Status [facility] 11-28-2022 Cognitive function Voice/Name [facility] Work Phone: Clinical Notes 11-26-2022 to 01-19-2025 Note Date & Type Note Facility 01-19-2025 Discharge summary Note Date/Time January 19, 2025 4:02pm [facility] Medical Records Department [address] [place] [address] Instructions for Home/Discharge Instructions 01/19/25 1516 MR#: [id number] Acct: [id number] Name: CHARAN GARCIA Rep #:[id number] : 1960 64 From: Marky Lund DO PCP: Dr. Anne Arellano MD Status:ADM IN Discharge Instructions DC O2, CPAP, BIPAP needs Home O2 Discharge instructions: No Dressing / Incision Discharge Activity: Return to Normal Activity Weight Bearing Status: Full weight bearing Follow Up Care Test Results: Test results from this visit will be discussed in further detail at your follow-up appointment, if applicable. Discharge Plan Admission Admit Date/Time: 01/18/25 18:35 Primary Reason for Your Visit: Ischemic stroke Attending Provider: Marky Lund Primary Care Provider: Anne Arellano Consulting Providers: Marcos Rogers; Abeba Velasco; Rosa M Tiwari; Shakira Dunn; Jane Sidhu; Damian Mullen; Rachel Stone; Reno Hernandez; João Umanzor; Bhaskar Mendez; Nel Cadet; Cheyanne Thompson; Jagjit Damon; Madie Juarez; Laura Serrano; Greta Ward; Aaron Maloney; Aliza Real; Xander Beatty; Bhavana Reyes; Obi Zazueta; Yris Rao Instructions Additional Instructions / Restrictions: Do not take any Aleve, Advil, or extra aspirin for pain while you are on Plavix and aspirin. Do not take meloxicam. You may take Tylenol for pain. Do not smoke. Discharge Orders/Prescriptions Prescriptions: New atorvastatin 80 mg Tablet 80 mg PO QHS Qty: 30 0RF aspirin 81 mg Tablet,Chewable 81 mg PO BREAKFAST Qty: 0 0RF clopidogrel [Plavix] 75 mg tablet 75 mg PO DAILY Qty: 21 0RF Rx Instructions: Start on 01/19/2025 nicotine 14 mg/24 hr Patch 24 Hour 14 mg transdermal DAILY Qty: 30 0RF hydrochlorothiazide 25 mg tablet 25 mg PO DAILY Qty: 30 0RF Rx Instructions: One half tab daily starting 01/20/2025 Continued losartan 100 mg tablet 100 mg PO QDAY cholecalciferol (vitamin D3) 125 mcg (5,000 unit) capsule 125 mcg PO QDAY esomeprazole magnesium 20 mg capsule,delayed release(DR/EC) 20 mg PO Q12H prednisone 20 mg tablet 20 mg PO DAILY Discontinued clopidogrel [Plavix] 75 mg tablet 75 mg PO QDAY rosuvastatin [Crestor] 10 mg tablet 10 mg PO QDAY naproxen sodium [Aleve] 220 mg capsule 220 mg PO Q12H PRN (Reason: pain) meloxicam 15 mg tablet 15 mg PO DAILY Other Ambulatory Orders: 30 Day Event Recorder Preventi (Routine) Timeframe: 1 Day Facility: [facility] - Location: Cardiovascular Services Ordered By: Dr. Marky Lund Referrals / Follow Up: Anne Arellano MD [Primary Care Provider] - In 1 Week (Have your blood pressure rechecked, neurology has recommended the sleep study-this will have to be ordered by your primary care provider) Disposition Disposition (needs filled in before D/C Order can be placed): Home, Self Care 01/19/25 1602<Electronically signed by Marky Lund DO>Marky Lund DO CC: Shakira Dunn; Madie Juarez; Aaron Maloney; Jane Sidhu MD; Rosa M Tiwari MD; Marcos Rogers MD; Dr. Abeba Velasco MD; Dr. Anne Arellano MD; Dr. Thony MD; Dr. Rachel Stone MD; Dr. João Umanzor MD; Dr. Reno Hernandez MD; Dr. Bhaskar Mendez MD; Dr. Nel Cadet DO; Dr. Jagjit Damon DO; Dr. Greta Mills MD; Dr. Laura Serrano MD; Dr. Yris Rao MD; Dr. Aliza Real MD; Dr. Xander Beatty MD; Dr. Bhavana Reyes MD; Cheyanne Thompson DO; Obi Zazueta MD ~ Signed [facility] Work Phone: 1(935) 925-795009-04-2025 Discharge summary [facility] Medical Records Department [address] [place] [address] Instructions for Home/Discharge Instructions 01/19/25 1516 MR#: [id number] Acct: [id number] Name: CHARAN GARCIA Rep #:[id number] : 1960 64 From: Marky Lund DO PCP: Dr. Anne Arellano MD Status:ADM IN Discharge Instructions DC O2, CPAP, BIPAP needs Home O2 Discharge instructions: No Dressing / Incision Discharge Activity: Return to Normal Activity Weight Bearing Status: Full weight bearing Follow Up Care Test Results: Test results from this visit will be discussed in further detail at your follow- up appointment, if applicable. Discharge Plan Admission Admit Date/Time: 01/18/25 18:35 Primary Reason for Your Visit: Ischemic stroke Attending Provider: Marky Lund Primary Care Provider: Anne Arellano Consulting Providers: Marcos Rogers; Abeba Velasco; Rosa M Tiwari; Shakira Dunn; Jane Sidhu; Damian Mullen; Rachel Stone; Reno Hernandez; João Umanzor; Bhaskar Mendez; Nel Cadet; Cheyanne Thompson; Jagjit Damon; Madie Juarez; Laura Serrano; Greta Ward; Aaron Maloney; Aliza Real; Xander Beatty; Bhavana Reyes; Obi Zazueta; Yris Rao Instructions Additional Instructions / Restrictions: Do not take any Aleve, Advil, or extra aspirin for pain while you are on Plavix and aspirin. Do nottake meloxicam. You may take Tylenol for pain. Do not smoke. Discharge Orders/Prescriptions Prescriptions: New atorvastatin 80 mg Tablet 80 mg PO QHS Qty: 30 0RF aspirin 81 mg Tablet,Chewable 81 mg PO BREAKFAST Qty: 0 0RF clopidogrel [Plavix] 75 mg tablet 75 mg PO DAILY Qty: 21 0RF Rx Instructions: Start on 01/19/2025 nicotine 14 mg/24 hr Patch 24 Hour 14 mg transdermal DAILY Qty: 30 0RF hydrochlorothiazide 25 mg tablet 25 mg PO DAILY Qty: 30 0RF Rx Instructions: One half tab daily starting 01/20/2025 Continued losartan 100 mg tablet 100 mg PO QDAY cholecalciferol (vitamin D3) 125 mcg (5,000 unit) capsule 125 mcg PO QDAY esomeprazole magnesium 20 mg capsule,delayed release(DR/EC) 20 mg PO Q12H prednisone 20 mg tablet 20 mg PO DAILY Discontinued clopidogrel [Plavix] 75 mg tablet 75 mg PO QDAY rosuvastatin [Crestor] 10 mg tablet 10 mg PO QDAY naproxen sodium [Aleve] 220 mg capsule 220 mg PO Q12H PRN (Reason: pain) meloxicam 15 mg tablet 15 mg PO DAILY Other Ambulatory Orders: 30 Day Event Recorder Preventi (Routine) Timeframe: 1 Day Facility: [facility] - Location: Cardiovascular Services Ordered By: Dr. Marky Lund Referrals / Follow Up: Anne Arellano MD [Primary Care Provider] - In 1 Week (Have your blood pressure rechecked, neurology has recommended the sleep study-this will have to be ordered by your primary care provider) Disposition Disposition (needs filled in before D/C Order can be placed): Home, Self Care 01/19/25 1602Marky Lund DO CC: Shakira Dunn; Madie Juarez; Aaron Maloney; Jane Sidhu MD; Rosa M Tiwari MD; Marcos Rogers MD; Dr. Abeba Velasco MD; Dr. Anne Arellano MD; Dr. Thony MD; Dr. Rachel Stone MD; Dr. João Umanzor MD; Dr. Reno Hernandez MD; Dr. Bhaskar Mendez MD; Dr. Nel Cadet DO; Dr. Jagjit Damon DO; Dr. Greta Mills MD; Dr. Laura Serrano MD; Dr. Yris Rao MD; Dr. Aliza Real MD; Dr. Xander Beatty MD; Dr. Bhavana Reyes MD; Cheyanne Thompson DO; Obi Zazueta MD ~ Signed [facility]09-04-2025 [facility] Medical Records Department [address] [place] [address] Discharge Summary 01/19/25 1602 MR#: [id number] Acct: [id number] Name: CHARAN GARCIA Rep #: [id number] : 1960 64 From: Marky Lund DO PCP: Dr. Anne Arellano MD Status:DIS IN [id number] Prov[facility] Date of Admission: 01/18/25 Date of Discharge: 01/19/25 Primary Care Physician: Anne Arellano MD Consultations 01/18/25 19:30 Consult: Tele-Neurology Routine Consulting Provider: [facility] Reason for Consult: Acute Ischemic Stroke/TIA EMERGENT Consult: No MD Notified: Yes Date Notified: 01/18/25 Time Notified: 21:35 Method of Notification: Answering Service Nursing Unit Staff Notify [facility] of Tele-Neurology Consult: Yes Reason For Visit: CVA Diagnosis Discharge Diagnosis (1) Acute CVA (cerebrovascular accident): Status: Acute Code(s): I63.9 - Cerebral infarction, unspecified Plan 1. Acute ischemic strokes-possibly embolic in nature #2 type 2 diabetes #3 hyperlipidemia #4 essential hypertension Medications at Discharge Home Medications esomeprazole magnesium 20 mg capsule,delayed release 20 mg PO Q12H gerd 11/26/22 cholecalciferol (vitamin D3) 125 mcg (5,000 unit) capsule 125 mcg PO QDAY 07/20/24 losartan 100 mg tablet 100 mg PO QDAY 07/20/24 prednisone 20 mg tablet 20 mg PO DAILY 01/18/25 aspirin 81 mg chewable tablet 81 mg PO BREAKFAST #0 tabs 01/19/25 atorvastatin 80 mg tablet 80 mg PO QHS #30 tabs 01/19/25 clopidogrel 75 mg tablet (Plavix) 75 mg PO DAILY #21 tabs 01/19/25 hydrochlorothiazide 25 mg tablet 25 mg PO DAILY #30 tabs 01/19/25 nicotine 14 mg/24 hr daily transdermal patch 14 mg transdermal DAILY #30 ea 01/19/25 Hospital Course Operations None Procedures 2-D Echocardiogram Summary of Care Provided Minutes Spent on Discharge: 31 Hospital Course: This 64-year-old white male was seen in the emergency room at [facility] with complaints of acute onset of speech difficulties and left facial drooping. Stroke team was called and the patient's NIH was noted to be 4, CTA of the head and neck was performed which was unremarkable, CT of the brain was performed and there was evidence of multiple scattered small areas of presumed embolic acute infarct involving the right anterior right temporal lobe and the right posterior frontotemporal lobes in the left occipital lobe. Teleneurology did not recommend tenecteplase. Patient was admitted to PCU, an MRI of the brain was obtained which indicated patchy foci of acute ischemia on the right side-consider thromboembolic process in the right middle cranial fossa at the temporal lip, superior temporal gyrus anteriorly and the right parietal lobe in the right occipital lobe.. There was a small focus of encephalomalacia seen in the left occipital lobe, no acute ischemia was noted on the left. Patient was seen by PT and OT, he was treated during his hospitalization with 81 mg aspirin and a statin. Conversations were carried out with the patient concerning cessation of smoking, patient agreed to try nicotine patch as an outpatient and refrain from smoking. On 01/19/2025, patient was seen and examined: On examination he appeared in good health and spirits. Vital signs as documented. Skin warm and dry and without overt rashes. Neck without JVD, neck was supple, trachea midline, thyroid was normal. Lungs clear bilaterally, normal air movement was noted. Heart exam notable for regular rhythm, normal sounds and absence of murmurs, rubs or gallops. Abdomen unremarkable and without evidence of organomegaly, masses, or abdominal aortic enlargement. Bowel sounds are present, abdomen is not distended. Extremities nonedematous, no cyanosis was noted, no clubbing was noted. Neuro: Cranial nerves II through XII are grossly intact, no focal motor deficits were noted, sensation to light touch and pinprick intact, motor exam 5/5 throughout. Psych: Patient is alert and oriented x3, he does not appear anxious or depressed, he does not appear agitated. Patient was discharged home in stable condition on 01/19/2025, it was arranged that the patient have an outpatient 30-day event monitor placed, patient was discharged on dual antiplatelet therapy for 21 days and then aspirin afterwards. Weight / BMI Weight Weight: 67.7 kg Body Mass Index (BMI) 22.0 ABG / Lab / Microbiology Data 01/19/25 07:40 01/19/25 07:40 Laboratory: Laboratory Results - last 24 hr 01/18/25 16:59: WBC 7.0, RBC 4.68, Hgb 16.1, Hct 45.0, MCV 96.2 H, MCH 34.4 H, MCHC 35.8, RDW Std Deviation 47.9 H, RDW Coeff of Birdie 13.5, Plt Count 293, MPV 9.5, Immature Gran % (Auto) 0.100, Neut % (Auto) 87.7 H, Lymph % (Auto) 9.2 L, [place] % (Auto) 2.7, Eos % (Auto) 0.0, Baso % (Auto) 0.3, Absolute Neuts (auto) 6.2, Absolute Lymphs (auto) 0.65 (more content not included)...[facility]09-04-2025 Consult note Author Xander Beatty [facility] Note Date/Time January 19, 2025 1:55pm [facility] Medical Records Department [address] [place] [address] Consultation - Neurology 01/19/25 1345 MR#: [id number] Acct: [id number] Name: CHARAN GARCIA Rep #:[id number] : 1960 64 From: Xander Beatty MD PCP: Dr. Anne Arellano MD Status:ADM IN Location: [place] [address] Assessment and Plan: Stroke Assessment/Plan CHARAN GARCIA is a 64 M with a history of HTN smoking who presents for evaluation of aphasia and numbness. Neurological examination shows NIH 3. Speech is improving. Neuroimaging shows R sided multifocal infarcts. Pattern suggests embolic infarcts. TTE was completed. Waiting on results. CTA with no sig stenosis or occlusion. Etiology - cryptogenic for now. Pattern is embolic. - Anti-platelet medication: Aspirin 81 mg daily - Occupational/ Physical therapy consults - NPO until swallow evaluation. IVF until able to take po - DVT prophylaxis with SCDs and heparin SQ - Vascular risk factor modification. The following are the recommended guidelines: LDL Goal < 70 - lipitor Smoking Cessation - we discussed this. He is trying. Follow up with PCP for possible medication assistance Diabetes Management - NA. A1C is ok,. USP blood pressure control should achieve <130/80 mmHg. BP managementshould aim to achieve residential contorl in a reasonable amount of time, taking into consideration the individual patient's requirements and characteristics. He will need BP cuff. Told to keep diary and check BP three times a day for next three weeks. Weight Management: Goal for BMI is 18.5 -24.9 kg/m2 Alcohol: No more than 2 drinks/day for men or 1 drink/day for non- women - Promote lifestyle modification: weight control, physical activity, moderation of alcohol intake, moderate sodium intake. - Cardiology - TTE results are pending. 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 Start with 30 days. IF need to can proceed with LINQ outpatient. - Referral to sleep medicine for sleep apnea testing. Followup with PCP in 1-2 weeks, and in Neurology clinic in 6-12 weeks HPI Consult Data Date of Consult: 01/19/25 HPI Narrative HPI Narrative: CHARAN GARCIA, is a 64 M who presents [facility] Medical History (Updated 01/19/25 @ 13:[address] Yris Rao MD) Hyperlipidemia HTN (hypertension) CVA (cerebral vascular accident) Hiatal hernia GERD (gastroesophageal reflux disease) Home Medications ?Medication ?Instructions ?Recorded ?Last Taken ?Type esomeprazole magnesium 20 mg 20 mg PO Q12H gerd 11/26/22 History capsule,delayed release cholecalciferol (vitamin D3) 125 125 mcg PO QDAY 07/20 Unknown History mcg (5,000 unit) capsule Held on 01/18/25. Instructions: Order Completed clopidogrel 75 mg tablet (Plavix) 75 mg PO QDAY Unknown History losartan 100 mg tablet 100 mg PO QDAY 07/20/24 Unkn own History naproxen sodium 220 mg capsule 220 mg PO Q12H PRN pain 07/20/24 Unknown History (Aleve) rosuvastatin 10 mg tablet (Crestor) 10 mg PO QDAY 10/09 Unknown History meloxicam 15 mg tablet 15 mg PO DAILY 01/18/25 Unkn own History prednisone 20 mg tablet 20 mg PO DAILY 01/18/25 Unkn own History Allergy/AdvReac Type Severity Reaction Status Date / Time No Known Allergies Allergy Verified 11/26/22 12:00 Family History (Updated 11/26/22 @ 16:[address] Charan Martinez MD) Mother CVA (cerebral vascular accident) Surgical History (Updated 11/26/22 @ 15:30 by Quynh Goldberg) History of ankle surgery Social History (Updated 07/20/24 @ 14:18 by Erin Guerrero) Smoking Status: Unknown if ever smoked substance use type: marijuana Vital Signs Vital Signs Vital Signs: 01/18/25 16:57 01/18/25 17:10 01/18/25 17:14 Temperature 97.9 F 98.6 F Temperature Source Oral Oral Pulse Rate 97 86 Pulse Strength Respiratory Rate 16 18 Respiratory Effort Respiratory Depth Respiratory Pattern Blood Pressure 174/97 H 168/76 H Blood Pressure Mean 122 106 Blood Pressure Source Blood Pressure Position Blood Pressure Location Pulse Ox 99 98 Oxygen Delivery Method Room Air Room Air Room Air 01/18/25 17:17 01/18/25 17:29 01/18/25 17:43 Temperature 98.7 F 97.8 F 98.7 F Temperature Source Oral Oral Oral Pulse Rate 85 79 70 Pulse Strength Respiratory Rate 15 18 22 H Respiratory Effort Respiratory Depth Respiratory Pattern Blood Pressure 164/74 H 162/76 H 162/72 H Blood Pressure Mean 104 104 102 Blood Pressure Source Blood Pressure Position Blood Pressure Location Pulse Ox 98 98 97 Oxygen Delivery Method Room Air Room Air Room Air 01/18/25 17:56 01/18/25 17:59 01/18/25 18:15 Temperature 97.8 F 98.4 F 98.1 F Temperature Source Oral Oral Pulse Rate 75 69 77 Pulse Strength Respiratory Rate 13 19 H 19 H Respiratory Effort Respiratory Depth Respiratory Pattern Blood Pressure 162/72 H 169/81 H 175/97 H Blood Pressure Mean 102 110 123 Blood Pressure Source Blood Pressure Position Blood Pressure Location Pulse Ox 96 97 98 Oxygen Delivery Method Room Air Room Air 01/18/25 18:29 01/18/25 19:00 01/18/25 19:00 Temperature 98.1 F 97.4 F L Temperature Source Oral Temporal Pulse Rate 67 70 59 L Pulse Strength Respiratory Rate 23 H 18 Respiratory Effort Respiratory Depth Respiratory Pattern Blood Pressure 158/80 H 166/72 H Blood Pressure Mean 106 103 Blood Pressure Source Monitor Blood Pressure Position Semi-Fowlers Blood Pressure Location Left Arm Pulse Ox 95 98 Oxygen Delivery Method Room Air Room Air 01/18/25 19:26 01/18/25 21:40 01/18/25 23:14 Temperature 97.6 F L 98.4 F Temperature Source Oral Oral Pulse Rate 95 64 Pulse Strength Respiratory Rate 16 15 Respiratory Effort Normal Non-Labored Respiratory Depth Normal Respiratory Pattern Normal Blood Pressure 168/79 H 155/77 H Blood Pressure Mean 108 103 Blood Pressure Source Monitor Monitor Blood Pressure Position Sitting Semi-Fowlers Blood Pressure Location Left Arm Left Arm Pulse Ox 95 94 Oxygen Delivery Method Room Air Room Air Room Air 01/18/25 23:53 01/19/25 03:00 01/19/25 03:08 Temperature 97.7 F L Temperature Source Oral Pulse Rate 61 61 Pulse Strength Respiratory Rate 17 Respiratory Effort Respiratory Depth Respiratory Pattern Blood Pressure 151/84 H Blood Pressure Mean 106 Blood Pressure Source Monitor Blood Pressure Position Semi-Fowlers Blood Pressure Location Left Arm Pulse Ox 96 94 Oxygen Delivery Method Room Air Room Air 01/19/25 03:42 01/19/25 06:46 01/19/25 07:00 Temperature 97.8 F Temperature Source Oral Pulse Rate 61 58 L Pulse Strength Respiratory Rate 15 Respiratory Effort Normal Non-Labored Respiratory Depth Normal Respiratory Pattern Normal Blood Pressure 165/79 H Blood Pressure Mean 107 Blood Pressure Source Monitor Blood Pressure Position Semi-Fowlers Blood Pressure Location Left Arm Pulse Ox 95 Oxygen Delivery Method Room Air Room Air 01/19/25 07:43 01/19/25 09:34 01/19/25 10:00 Temperature 98.2 F Temperature Source Oral Pulse Rate 62 Pulse Strength Normal (2+) Respiratory Rate 18 Respiratory Effort Respiratory Depth Respiratory Pattern Blood Pressure 176/86 H Blood Pressure Mean 116 Blood Pressure Source Monitor Blood Pressure Position Semi-Fowlers Blood Pressure Location Right Arm Pulse Ox 95 95 Oxygen Delivery Method Room Air Room Air Weight Weight: 67.7 kg Body Mass Index (BMI) 22.0 EEG Results Procedure Details EEG Procedure Details: CHARAN GARCIA is a 64 year old M with a past medical history of , who presents for evaluation of Electroencephalogram on DATE at TIME Lab / Micro Data 01/19/25 07:40 01/19/25 07:40 Labs: Laboratory Results - last 24 hr 01/18/25 16:59: WBC 7.0, RBC 4.68, Hgb 16.1, Hct 45.0, MCV 96.2 H, MCH 34.4 H, MCHC 35.8, RDW Std Deviation 47.9 H, RDW Coeff of Birdie 13.5, Plt Count 293, MPV 9.5, Immature Gran % (Auto) 0.100, Neut % (Auto) 87.7 H, Lymph % (Auto) 9.2 L, [place] % (Auto) 2.7, Eos % (Auto) 0.0, Baso % (Auto) 0.3, Absolute Neuts (auto) 6.2, Absolute Lymphs (auto) 0.65 L, Nucleated RBC % 0, PT 12.9, INR 1.0, APTT 29.8, Sodium 139, Potassium 3.7, Chloride 105, Carbon Dioxide 19.6 L, Anion Gap 14, BUN 14, Creatinine 0.76, Estim Creat Clear Calc 89.93, Est GFR (MDRD) Non-Af99, BUN/Creatinine Ratio 18.7, Glucose 119 H, Calcium 9.2, Troponin T High Sens 6 01/18/25 19:44: Troponin T Hi Sens 2 Hr 10 01/18/25 21:21: Troponin T Hi Sens 4Hr 8 01/19/25 07:40: WBC 7.2, RBC 4.43 L, Hgb 14.8, Hct 41.8, MCV 94.4 H, MCH 33.4 H,MCHC 35.4, RDW Std Deviation 46.8 H, RDW Coeff of Birdie 13.4, Plt Count 236, MPV 9.5, Immature Gran % (Auto) 0.100, Neut % (Auto) 68.4, Lymph % (Auto) 19.7, [place]% (Auto) 8.5, Eos % (Auto) 2.7, Baso % (Auto) 0.6, Absolute Neuts (auto) 4.9, Absolute Lymphs (auto) 1.41, Nucleated RBC % 0, Sodium 140, Potassium 3.5, Chloride 105, Carbon Dioxide 23.3, Anion Gap 11, BUN 12, Creatinine 0.64 L, Estim Creat Clear Calc 86.98, Est GFR (MDRD) Non-Af 104, BUN/Creatinine Ratio 19.1, Glucose 84, Hemoglobin A1c 5.3, Calcium 8.8, Magnesium 2.2, Triglycerides 88, Cholesterol 159, LDL Cholesterol, Calc 100, VLDL Cholesterol 18, HDL Cholesterol 42, Cholesterol/HDL Ratio 3.81, TSH 2.210 Imaging Radiology Impression Brain CT 01/18/25 16:59 IMPRESSION: 1. 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 2. No acute intracranial hemorrhage/hemorrhagic conversion, or mass-effect. 3. No intracranial or cervical large vessel arterial occlusion or significant stenosis. Reading Location: [id number] Head/Neck CTA 01/18/25 17:00 IMPRESSION: 1. 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 2. No acute intracranial hemorrhage/hemorrhagic conversion, or mass-effect. 3. No intracranial or cervical large vessel arterial occlusion or significant stenosis. Reading Location: [id number] Brain MRI 01/19/25 09:00 IMPRESSION: Patchy foci of acute ischemia on the right side. Consider thromboembolic process. See above description. Reading Location: [id number] Active Medications Active Medications Active Medications: Current Medications Generic Name Dose Route Start Last Admin Trade Name Freq PRN Reason Stop Dose Admin Acetaminophen 650 mg 01/18/25 19:28 Acetaminophen 325 Mg Tablet PO Q6H PRN PRN Pain 1-10 Or Fever >100.7 Albuterol Sulfate 2.5 mg 01/18/25 19:28 Albuterol 2.5 Mg/3 Ml Vial.Neb. INHALATION Q2H PRN PRN SOB &/OR WHEEZING Aspirin 81 mg 01/19/25 08:00 01/19/25 09:39 Aspirin 81 Mg Tab.Chew PO 81 mg BREAKFAST BLAS Administration Atorvastatin Calcium 80 mg 01/18/25 22:00 01/18/25 21:29 Atorvastatin Calcium 80 Mg Tablet PO 80 mg QHS BLAS Administration Hydralazine HCl 5 mg 01/18/25 19:28 Hydralazine 20 Mg/Ml Vial IV 01/19/25 19:30 Q30M PRN maintain BP parameters with HR <60 Labetalol HCl 10 - 20 mg 01/18/25 19:28 Labetalol 20 Mg/4 Ml Vial IV 01/19/25 19:30 Q10M PRN PRN maintain BP parameters with HR >/=60 Lorazepam 0.5 mg 01/18/25 21:00 Lorazepam 0.5 Mg Tablet PO X1 PRN Anxiety with MRI Melatonin 10 mg 01/18/25 19:28 Melatonin 10 Mg Tablet PO QHS PRN PRN INSOMNIA Nicotine 14 mg 01/18/25 20:00 01/19/25 09:39 Nicotine (Pbkc) 14 Mg Patch TD 14 mg DAILY BLAS Administration Ondansetron HCl 4 mg 01/18/25 19:28 Ondansetron 4 Mg/2 Ml Vial IV Q8H PRN PRN NAUSEA/VOMITING Pantoprazole Sodium 20 mg 01/18/25 22:00 01/19/25 09:39 Pantoprazole Sodium 20 Mg Tablet PO 20 mg BID BLAS Administration Senna/Docusate Sodium 2 tablet 01/18/25 19:28 Senna/Docusate Sodium 1 Tablet PO BID PRN PRN Constipation Sodium Chloride 10 - 40 ml 01/18/25 18:58 01/18/25 21:29 0.9% Saline Lock 10 Ml Syringe IV 10 ml UD PRN Administration SALINE FLUSH NIHSS NIHSS Nursing Documentation NIHSS Nursing Documentation: NIHSS: Ischemic Stroke/TIA Start: 01/18/25 19:30 Text: For PCU Patients: NIH and Neuro Check every 4 Status: Active hours, PRN and with change in RN caregiver. Freq: [id number] Protocol: Activity Type Activity Date Activity User E-sign Co-sign Detail Recorded Client Recorded Date Recorded By Document 01/19/25 10:00 CD [id number] 01/19/25 13:32 CD 01/19/25 10:00 NIH Stroke Scale [NIHSS] A score of 0 is "normal" or asymptomatic . Total possible score is 42. Inpatient: RN or Physician to activate a stroke alert for onset of new stroke symptoms or with NIHSS increase >/= 3 points. Following change in neurological status, NIHSS will be performed per physician order or more frequently PRN. -1a. Level of Consciousness 0 - Alert; keenly responsive -1b. LOC Questions 0 - Answers BOTH questions correctly -1c. LOC Commands 0 - Performs BOTH tasks correctly -2. Best Gaze 0 - Normal -3. Visual 0 - No visual loss -4. Facial Palsy 1 - Minor paralysis ( flattened nasolabial fold , asymmetry on smiling) -5a. Left Arm 0 - No drift; arm holds 90 ( or 45) degrees for full 10 seconds -5b. Right Arm 0 - No drift; arm holds 90 ( or 45) degrees for full 10 seconds -6a. Left Leg 0 - No drift; leg holds 30- degree position for full 5 seconds -6b. Right Leg 0 - No drift; leg holds 30- degree position for full 5 seconds -7. Limb Ataxia 1 - Present in 1 limb -8. Sensory 0 - Normal; no sensory loss -9. Best Language 0 - No aphasia; normal -10. Dysarthria 0 - Normal -11. Extinction and Inattention 0 - No abnormality -Total 2 Query Text:A score of 0 is "normal" or asymptomatic. Total possible score is 42 . ED: Notify Physician for NIHSS increase by > / = 3 points. Inpatient: RN or Physician to activate a stroke alert for NIHSS increase of > / = 3 points. Coma Scale [Assess] -Eye Opening Spontaneous -Motor Obeys Commands -Verbal Oriented [Total] -Coma Scale Total 15 01/19/25 1355 <Electronically signed by Xander Beatty MD> Cosigner Signature (if applicable): CC: Dr. Anne Arellano MD~ Signed [facility] Work Phone: 1(134) 777-440409-04-2025 History and physical note Author Yris Rao [facility] Note Date/Time January 19, 2025 1:06pm [facility] Medical Records Department [address] [place] [id number] H&P Exam - Hospitalist 01/18/25 1835 MR#: [id number] Acct: [id number] Name: CHARAN GARCIA Rep #:[id number] : 1960 64 From: Yris Rao MD PCP: Dr. Anne Arellano MD Status:ADM IN Location: [place] [id number] HPI - General General Date of Admission: 01/18/25 Date of Service: 01/19/25 Chief Complaint: Left hand weakness, left facial droop and slurred speech HPI Narrative CHARAN GARCIA, is a 64-year-old male with a history of GERD, hypertension, tobaccouse, CVA who presented to [facility] ED 01/18/2025 due to acute onset of speech difficulties and facial drooping with last known well 1400 on day of presentation. Patient was a stroke alert in the ED. In the ED NIH initially 4. Patient afebrile, heart rate 97 and blood pressure 174/97, respiratory rate 16 pulse ox 99% on room air. CBC with white count of 7 and hemoglobin 16.1. BMP with a bicarb of 19.6, normal gap, glucose 119 otherwise no acute abnormalities. Troponin 6. CT brain with multiple scattered areas of presumably embolic acute infarct involving anterior right temporal lobe, right posterior frontal parietal lobes and left occipital lobe and CTA without LVO. Patient evaluated by telestroke in the ED and it was recommended patient be admitted for further stroke workup given the findings. Hospitalist contacted for admission. Patient evaluated bedside, he revealed that he did have intermittent numbness in tingling in various fingertips on his left hand that would last for 10 minutes and go away over the past 3 weeks and then on he had significant weakness in his left hand, he saw his PCP because he thought it was his neck or his elbow and was going to undergo workup for that however today at 2 PM developed slurred speech and left-sided facial droop prompting himto come to the ED. Patient feels similar to how he did when he arrived except he is intermittently getting the tingling feeling in his fingertips. Denies anyrecent fevers or chills, no headache or changes in vision, no other numbness, weakness, tingling. Does continue to smoke but has been cutting back. [facility] Medical History (Updated 01/19/25 @ 13:[address] Yris Rao MD) CVA (cerebral vascular accident) GERD (gastroesophageal reflux disease) Hiatal hernia HTN (hypertension) Hyperlipidemia Home Medications ?Medication ?Instructions ?Recorded ?Last Taken ?Type esomeprazole magnesium 20 mg 20 mg PO Q12H gerd 11/26/22 History capsule,delayed release cholecalciferol (vitamin D3) 125 125 mcg PO QDAY 07/20 Unknown History mcg (5,000 unit) capsule Held on 01/18/25. Instructions: Order Completed clopidogrel 75 mg tablet (Plavix) 75 mg PO QDAY Unknown History losartan 100 mg tablet 100 mg PO QDAY 07/20/24 Unkn own History naproxen sodium 220 mg capsule 220 mg PO Q12H PRN pain 07/20/24 Unknown History (Aleve) rosuvastatin 10 mg tablet (Crestor) 10 mg PO QDAY 10/09 Unknown History meloxicam 15 mg tablet 15 mg PO DAILY 01/18/25 Unkn own History prednisone 20 mg tablet 20 mg PO DAILY 01/18/25 Unkn own History Allergy/AdvReac Type Severity Reaction Status Date / Time No Known Allergies Allergy Verified 11/26/22 12:00 Family History (Updated 11/26/22 @ 16:[address] Charan Martinez MD) Mother CVA (cerebral vascular accident) Surgical History (Updated 11/26/22 @ 15:30 by Quynh Goldberg) History of ankle surgery Social History (Updated 07/20/24 @ 14:18 by Erin Guerrero) Smoking Status: Heavy Smoker (>10/day) substance use type: marijuana ROS ROS Narrative General: Denies fever/chills HENT: Denies headache, denies stuffy nose, denies sore throat EYES: Denies changes in vision Resp: Denies cough, denies shortness of breath Cardiac: Denies chest pain GI: Denies abdominal pain, denies changes in bowel, denies nausea/vomiting : Denies changes in urination Extremity: Denies swelling MSK: Weakness in left upper extremity neuro: Intermittent tingling in several fingertips and left arm Heme: Denies any bleeding or bruising Skin: Denies rashes Psychiatric: No complaints voiced Vital Signs Vital Signs Vital Signs: 01/18/25 16:57 01/18/25 17:10 01/18/25 17:14 Temperature 97.9 F 98.6 F Temperature Source Oral Oral Pulse Rate 97 86 Respiratory Rate 16 18 Blood Pressure 174/97 H 168/76 H Blood Pressure Mean 122 106 Pulse Ox 99 98 Oxygen Delivery Method Room Air Room Air Room Air 01/18/25 17:17 01/18/25 17:29 01/18/25 17:43 Temperature 98.7 F 97.8 F 98.7 F Temperature Source Oral Oral Oral Pulse Rate 85 79 70 Respiratory Rate 15 18 22 H Blood Pressure 164/74 H 162/76 H 162/72 H Blood Pressure Mean 104 104 102 Pulse Ox 98 98 97 Oxygen Delivery Method Room Air Room Air Room Air 01/18/25 17:56 01/18/25 17:59 01/18/25 18:15 Temperature 97.8 F 98.4 F 98.1 F Temperature Source Oral Oral Pulse Rate 75 69 77 Respiratory Rate 13 19 H 19 H Blood Pressure 162/72 H 169/81 H 175/97 H Blood Pressure Mean 102 110 123 Pulse Ox 96 97 98 Oxygen Delivery Method Room Air Room Air 01/18/25 18:29 Temperature 98.1 F Temperature Source Oral Pulse Rate 67 Respiratory Rate 23 H Blood Pressure 158/80 H Blood Pressure Mean 106 Pulse Ox 95 Oxygen Delivery Method Room Air Weight Weight: 70 kg Body Mass Index (BMI) 22.8 Physical Exam Narrative General: Alert, oriented, no apparent distress HEENT: Atraumatic, left lower facial droop Eyes: Anicteric, normal conjunctiva, extraocular movements intact, pupils equal Neck: Supple Respiratory: Clear to auscultation bilaterally, normal respiratory effort Cardiovascular: Regular rate and rhythm GI: Soft, nontender, nondistended Extremities: No edema Musculoskeletal: Strength 5 out of 5 in right upper extremity, 4- out of 5 left upper extremity, 5 out of 5 right lower extremity, 5 out of 5 left lower extremity Neuro: LUE weakness, left lower facial droop otherwise cranial nerves II throughXII intact, finger-nose intact with right hand, patient has dysmetria with left Skin: No rashes appreciated Psych: Cooperative Results Lab / Micro Data 01/19/25 07:40 01/19/25 07:40 Labs: Laboratory Results - last 24 hr 01/18/25 16:59: WBC 7.0, RBC 4.68, Hgb 16.1, Hct 45.0, MCV 96.2 H, MCH 34.4 H, MCHC 35.8, RDW Std Deviation 47.9 H, RDW Coeff of Birdie 13.5, Plt Count 293, MPV 9.5, Immature Gran % (Auto) 0.100, Neut % (Auto) 87.7 H, Lymph % (Auto) 9.2 L, [place] % (Auto) 2.7, Eos % (Auto) 0.0, Baso % (Auto) 0.3, Absolute Neuts (auto) 6.2, Absolute Lymphs (auto) 0.65 L, Nucleated RBC % 0, PT 12.9, INR 1.0, APTT 29.8, Sodium 139, Potassium 3.7, Chloride 105, Carbon Dioxide 19.6 L, Anion Gap 14, BUN 14, Creatinine 0.76, Estim Creat Clear Calc 89.93, Est GFR (MDRD) Non-Af99, BUN/Creatinine Ratio 18.7, Glucose 119 H, Calcium 9.2, Troponin T High Sens 6 Imaging Radiology Impression Brain CT 01/18/25 16:59 IMPRESSION: 1. 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 2. No acute intracranial hemorrhage/hemorrhagic conversion, or mass-effect. 3. No intracranial or cervical large vessel arterial occlusion or significant stenosis. Reading Location: [id number] Head/Neck CTA 01/18/25 17:00 IMPRESSION: 1. 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 2. No acute intracranial hemorrhage/hemorrhagic conversion, or mass-effect. 3. No intracranial or cervical large vessel arterial occlusion or significant stenosis. Reading Location: [id number] Assessment & Plan Assessment/Plan (1) Acute CVA (cerebrovascular accident): PLAN: Plan # Facial droop and speech difficulties with positive CT for CVA -Admit to tele -CT head w/ with multiple scattered areas of presumably embolic acute infarct involving anterior right temporal lobe, right posterior frontal parietal lobes and left occipital lobe and CTA without LVO -CTA head and neck no LVO -MRI ordered -NIH q4hr -asa, statin -Echo, previously negative bubble study -PT/OT/Speech eval -Teleneuro consult placed -Hold BP medications to allow for permissive hypertension for 24 hours unless SBP greater than 220 or DBP greater than 120 or until stroke is ruled out # History of CVA -Appears patient was not taking his clopidogrel on an outpatient basis -Will need to newspaper delivery counselor patient on importance of compliance #Hypertension - Was supposed to be taking losartan but apparently has not taking this -Will be holding antihypertensives as above, would recommend restarting before or on discharge #GERD -Continue PPI #Tobacco use -Advise cessation -Nicotine replacement available if desired #DVT ppx: SCDs Yris Rao MD Charges/Coding Visit Charges Inpatient E&M: 99302 Init Hosp L2 01/19/25 1306 <Electronically signed by Yris Rao MD> Cosigner Signature (if applicable): CC: Dr. Anne Arellano MD; Dr. Yris Rao MD~ Signed [facility] Work Phone: [phone]) 480-216609-04-2025 Hospital Discharge instructionsAdditional Instructions Do not take any Aleve, Advil, or extra aspirin for pain while you are on Plavix and aspirin. Do not take meloxicam. You may take Tylenol for pain. Do not smoke. [facility]: [facility] Phone: [phone]) 933-998409-04-2025 Consult note [facility] Medical Records Department [address] [place] [address] Consultation - Neurology 01/19/25 1345 MR#: [id number] Acct: [id number] Name: CHARAN GARCIA Rep #:[id number] : 1960 64 From: Xander Beatty MD PCP: Dr. Anne Arellano MD Status:ADM IN Location: [place] [address] Assessment and Plan: Stroke Assessment/Plan CHARAN GARCIA is a 64 M with a history of HTN smoking who presents for evaluation of aphasia and numbness. Neurological examination shows NIH 3. Speech is improving. Neuroimaging shows R sided multifocal infarcts. Pattern suggests embolic infarcts. TTE was completed. Waiting on results. CTA with no sig stenosis or occlusion. Etiology - cryptogenic for now. Pattern is embolic. - Anti-platelet medication: Aspirin 81 mg daily - Occupational/ Physical therapy consults - NPO until swallow evaluation. IVF until able to take po - DVT prophylaxis with SCDs and heparin SQ - Vascular risk factor modification. The following are the recommended guidelines: LDL Goal < 70 - lipitor Smoking Cessation - we discussed this. He is trying. Follow up with PCP for possible medication assistance Diabetes Management - NA. A1C is ok,. USP blood pressure control should achieve <130/80 mmHg. BP managementshould aim to achievelong term contorl in a reasonable amount of time, taking into consideration the individual patient's requirements and characteristics. He will need BP cuff. Told to keep diary and check BP three times a day for next three weeks. Weight Management: Goal for BMI is 18.5 -24.9 kg/m2 Alcohol: No more than 2 drinks/day for men or 1 drink/day for non- women - Promote lifestyle modification: weight control, physical activity, moderation of alcohol intake, moderate sodium intake. - Cardiology - TTE results are pending. 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 Start with 30 days. IF need to can proceed with LINQ outpatient. - Referral to sleep medicine for sleep apnea testing. Followup with PCP in 1-2 weeks, and in Neurology clinic in 6-12 weeks HPI Consult Data Date of Consult: 01/19/25 HPI Narrative HPI Narrative: CHARAN GARCIA, is a 64 M who presents [facility] Medical History (Updated 01/19/25 @ 13:[address] Yris Rao MD) Hyperlipidemia HTN (hypertension) CVA (cerebral vascular accident) Hiatal hernia GERD (gastroesophageal reflux disease) Home Medications ?Medication ?Instructions ?Recorded ?Last Taken ?Type esomeprazole magnesium 20 mg 20 mg PO Q12H gerd 11/26/22 History capsule,delayed release cholecalciferol (vitamin D3) 125 125 mcg PO QDAY 07/20 Unknown History mcg (5,000 unit) capsule Held on 01/18/25. Instructions: Order Completed clopidogrel 75 mg tablet (Plavix) 75 mg PO QDAY Unknown History losartan 100 mg tablet 100 mg PO QDAY 07/20/24 Unkn own History naproxen sodium 220 mg capsule 220 mg PO Q12H PRN pain 07/20/24 Unknown History (Aleve) rosuvastatin 10 mg tablet (Crestor) 10 mg PO QDAY 10/09 Unknown History meloxicam 15 mg tablet 15 mg PO DAILY 01/18/25 Unkn own History prednisone 20 mg tablet 20 mg PO DAILY 01/18/25 Unkn own History Allergy/AdvReac Type Severity Reaction Status Date / Time No Known Allergies Allergy Verified 11/26/22 12:00 Family History (Updated 11/26/22 @ 16:[address] Charan Martinez MD) Mother CVA (cerebral vascular accident) Surgical History (Updated 11/26/22 @ 15:30 by Quynh Goldberg) History of ankle surgery Social History (Updated 03/05/25 @ 14:18 by Erin Martines Smoking Status: Unknown if ever smoked substance use type: marijuana Vital Signs Vital Signs Vital Signs: 01/18/25 16:57 01/18/25 17:10 01/18/25 17:14 Temperature 97.9 F 98.6 F Temperature Source Oral Oral Pulse Rate 97 86 Pulse Strength Respiratory Rate 16 18 Respiratory Effort Respiratory Depth Respiratory Pattern Blood Pressure 174/97 H 168/76 H Blood Pressure Mean 122 106 Blood Pressure Source Blood Pressure Position Blood Pressure Location Pulse Ox 99 98 Oxygen Delivery Method Room Air Room Air Room Air 01/18/25 17:17 01/18/25 17:29 01/18/25 17:43 Temperature 98.7 F 97.8 F 98.7 F Temperature Source Oral Oral Oral Pulse Rate 85 79 70 Pulse Strength Respiratory Rate 15 18 22 H Respiratory Effort Respiratory Depth Respiratory Pattern Blood Pressure 164/74 H 162/76 H 162/72 H Blood Pressure Mean 104 104 102 Blood Pressure Source Blood Pressure Position Blood Pressure Location Pulse Ox 98 98 97 Oxygen Delivery Method Room Air Room Air Room Air 01/18/25 17:56 01/18/25 17:59 01/18/25 18:15 Temperature 97.8 F 98.4 F 98.1 F Temperature Source Oral Oral Pulse Rate 75 69 77 Pulse Strength Respiratory Rate 13 19 H 19 H Respiratory Effort Respiratory Depth Respiratory Pattern Blood Pressure 162/72 H 169/81 H 175/97 H Blood Pressure Mean 102 110 123 Blood Pressure Source Blood Pressure Position Blood Pressure Location Pulse Ox 96 97 98 Oxygen Delivery Method Room Air Room Air 01/18/25 18:29 01/18/25 19:00 01/18/25 19:00 Temperature 98.1 F 97.4 F L Temperature Source Oral Temporal Pulse Rate 67 70 59 L Pulse Strength Respiratory Rate 23 H 18 Respiratory Effort Respiratory Depth Respiratory Pattern Blood Pressure 158/80 H 166/72 H Blood Pressure Mean 106 103 Blood Pressure Source Monitor Blood Pressure Position Semi-Fowlers Blood Pressure Location Left Arm Pulse Ox 95 98 Oxygen Delivery Method Room Air Room Air 01/18/25 19:26 01/18/25 21:40 01/18/25 23:14 Temperature 97.6 F L 98.4 F Temperature Source Oral Oral Pulse Rate 95 64 Pulse Strength Respiratory Rate 16 15 Respiratory Effort Normal Non-Labored Respiratory Depth Normal Respiratory Pattern Normal Blood Pressure 168/79 H 155/77 H Blood Pressure Mean 108 103 Blood Pressure Source Monitor Monitor Blood Pressure Position Sitting Semi-Fowlers Blood Pressure Location Left Arm Left Arm Pulse Ox 95 94 Oxygen Delivery Method Room Air Room Air Room Air 01/18/25 23:53 01/19/25 03:00 01/19/25 03:08 Temperature 97.7 F L Temperature Source Oral Pulse Rate 61 61 Pulse Strength Respiratory Rate 17 Respiratory Effort Respiratory Depth Respiratory Pattern Blood Pressure 151/84 H Blood Pressure Mean 106 Blood Pressure Source Monitor Blood Pressure Position Semi-Fowlers Blood Pressure Location Left Arm Pulse Ox 96 94 Oxygen Delivery Method Room Air Room Air 01/19/25 03:42 01/19/25 06:46 01/19/25 07:00 Temperature 97.8 F Temperature Source Oral Pulse Rate 61 58 L Pulse Strength Respiratory Rate 15 Respiratory Effort Normal Non-Labored Respiratory Depth Normal Respiratory Pattern Normal Blood Pressure 165/79 H Blood Pressure Mean 107 Blood Pressure Source Monitor Blood Pressure Position Semi-Fowlers Blood Pressure Location Left Arm Pulse Ox 95 Oxygen Delivery Method Room Air Room Air 01/19/25 07:43 01/19/25 09:34 01/19/25 10:00 Temperature 98.2 F Temperature Source Oral Pulse Rate 62 Pulse Strength Normal (2+) Respiratory Rate 18 Respiratory Effort Respiratory Depth Respiratory Pattern Blood Pressure 176/86 H Blood Pressure Mean 116 Blood Pressure Source Monitor Blood Pressure Position Semi-Fowlers Blood Pressure Location Right Arm Pulse Ox 95 95 Oxygen Delivery Method Room Air Room Air Weight Weight: 67.7 kg Body Mass Index (BMI) 22.0 EEG Results Procedure Details EEG Procedure Details: CHARAN GARCIA is a 64 year old M with a past medical history of , who presents for evaluation of Electroencephalogram on DATE at TIME Lab / Micro Data 01/19/25 07:40 01/19/25 07:40 Labs: Laboratory Results - last 24 hr 01/18/25 16:59: WBC 7.0, RBC 4.68, Hgb 16.1, Hct 45.0, MCV 96.2 H, MCH 34.4 H, MCHC 35.8, RDW Std Deviation 47.9 H, RDW Coeff of Birdie 13.5, Plt Count 293, MPV 9.5, Immature Gran % (Auto) 0.100, Neut %(Auto) 87.7 H, Lymph % (Auto) 9.2 L, [place] % (Auto) 2.7, Eos % (Auto) 0.0, Baso % (Auto) 0.3, Absolute Neuts (auto) 6.2, Absolute Lymphs (auto) 0.65 L, Nucleated RBC % 0, PT 12.9, INR 1.0, APTT 29.8, Sodium 139, Potassium 3.7, Chloride 105, Carbon Dioxide 19.6 L, Anion Gap 14, BUN 14, Creatinine 0.76, Estim Creat Clear Calc 89.93, Est GFR (MDRD) Non- Af99, BUN/Creatinine Ratio 18.7, Glucose 119 H, Calcium 9.2, Troponin T High Sens 6 01/18/25 19:44: Troponin T Hi Sens 2 Hr 10 01/18/25 21:21: Troponin T Hi Sens 4Hr 8 01/19/25 07:40: WBC 7.2, RBC 4.43 L, Hgb 14.8, Hct 41.8, MCV 94.4 H, MCH 33.4 H,MCHC 35.4, RDW Std Deviation 46.8 H, RDW Coeff of Birdie 13.4, Plt Count 236, MPV 9.5, Immature Gran % (Auto) 0.100, Neut % (Auto) 68.4, Lymph % (Auto) 19.7, [place]% (Auto) 8.5, Eos % (Auto) 2.7, Baso % (Auto) 0.6, Absolute Neuts (auto) 4.9, Absolute Lymphs (auto) 1.41, Nucleated RBC % 0, Sodium 140, Potassium 3.5, Chloride 105, Carbon Dioxide 23.3, Anion Gap 11, BUN 12, Creatinine 0.64 L, Estim Creat Clear Calc 86.98, Est GFR (MDRD) Non-Af 104, BUN/Creatinine Ratio 19.1, Glucose 84, Hemoglobin A1c 5.3, Calcium 8.8, Magnesium 2.2, Triglycerides 88, Cholesterol 159, LDL Cholesterol, Calc 100, VLDL Cholesterol 18, HDL C holesterol 42, Cholesterol/HDL Ratio 3.81, TSH 2.210 Imaging Radiology Impression Brain CT 01/18/25 16:59 IMPRESSION: 1. 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 2. No acute intracranial hemorrhage/hemorrhagic conversion, or mass-effect. 3. No intracranial or cervical large vessel arterial occlusion or significant stenosis. Reading Location: [id number] Head/Neck CTA 01/18/25 17:00 IMPRESSION: 1. 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 2. No acute intracranial hemorrhage/hemorrhagic conversion, or mass-effect. 3. No intracranial or cervical large vessel arterial occlusion or significant stenosis. Reading Location: [id number] Brain MRI 01/19/25 09:00 IMPRESSION: Patchy foci of acute ischemia on the right side. Consider thromboembolic process. See above description. Reading Location: [id number] Active Medications Active Medications Active Medications: Current Medications Generic Name Dose Route Start Last Admin Trade Name Freq PRN Reason Stop Dose Admin Acetaminophen 650 mg 01/18/25 19:28 Acetaminophen 325 Mg Tablet PO Q6H PRN PRN Pain 1-10 Or Fever >100.7 Albuterol Sulfate 2.5 mg 01/18/25 19:28 Albuterol 2.5 Mg/3 Ml Vial.Neb. INHALATION Q2H PRN PRN SOB &/OR WHEEZING Aspirin 81 mg 01/19/25 08:00 01/19/25 09:39 Aspirin 81 Mg Tab.Chew PO 81 mg BREAKFAST BLAS Administration Atorvastatin Calcium 80 mg 01/18/25 22:00 01/18/25 21:29 Atorvastatin Calcium 80 Mg Tablet PO 80 mg QHS BLAS Administration Hydralazine HCl 5 mg 01/18/25 19:28 Hydralazine 20 Mg/Ml Vial IV 01/19/25 19:30 Q30M PRN maintain BP parameters with HR <60 Labetalol HCl 10 - 20 mg 01/18/25 19:28 Labetalol 20 Mg/4 Ml Vial IV 01/19/25 19:30 Q10M PRN PRN maintain BP parameters with HR >/=60 Lorazepam 0.5 mg 01/18/25 21:00 Lorazepam 0.5 Mg Tablet PO X1 PRN Anxiety with MRI Melatonin 10 mg 01/18/25 19:28 Melatonin 10 Mg Tablet PO QHS PRN PRN INSOMNIA Nicotine 14 mg 01/18/25 20:00 01/19/25 09:39 Nicotine (Pbkc) 14 Mg Patch TD 14 mg DAILY BLAS Administration Ondansetron HCl 4 mg 01/18/25 19:28 Ondansetron 4 Mg/2 Ml Vial IV Q8H PRN PRN NAUSEA/VOMITING Pantoprazole Sodium 20 mg 01/18/25 22:00 01/19/25 09:39 Pantoprazole Sodium 20 Mg Tablet PO 20 mg BID BLAS Administration Senna/Docusate Sodium 2 tablet 01/18/25 19:28 Senna/Docusate Sodium 1 Tablet PO BID PRN PRN Constipation Sodium Chloride 10 - 40 ml 01/18/25 18:58 01/18/25 21:29 0.9% Saline Lock 10 Ml Syringe IV 10 ml UD PRN Administration SALINE FLUSH NIHSS NIHSS Nursing Documentation NIHSS Nursing Documentation: NIHSS: Ischemic Stroke/TIA Start: 01/18/25 19:30 Text: For PCU Patients: NIH and Neuro Check every 4 Status: Active hours, PRN and with change in RN caregiver. Freq: [id number] Protocol: Activity Type Activity Date Activity User E-sign Co-sign Detail Recorded Client Recorded Date Recorded By Document 01/19/25 10:00 CD [id number] 01/19/25 13:32 CD 01/19/25 10:00 NIH Stroke Scale [NIHSS] A score of 0 is "normal" or asymptomatic . Total possible score is 42. Inpatient: RN or Physician to activate a stroke alert for onset of new stroke symptoms or with NIHSS increase >/= 3 points. Following change in neurological status, NIHSS will be performed per physician order or more frequently PRN. -1a. Level of Consciousness 0 - Alert; keenly responsive -1b. LOC Questions 0 - Answers BOTH questions correctly -1c. LOC Commands 0 - Performs BOTH tasks correctly -2. Best Gaze 0 - Normal -3. Visual 0 - No visual loss -4. Facial Palsy 1 - Minor paralysis ( flattened nasolabial fold , asymmetry on smiling) -5a. Left Arm 0 - No drift; arm holds 90 ( or 45) degrees for full 10 seconds -5b. Right Arm 0 - No drift; arm holds 90 ( or 45) degrees for full 10 seconds -6a. Left Leg 0 - No drift; leg holds 30- degree position for full 5 seconds -6b. Right Leg 0 - No drift; leg holds 30- degree position for full 5 seconds -7. Limb Ataxia 1 - Present in 1 limb -8. Sensory 0 - Normal; no sensory loss -9. Best Language 0 - No aphasia; normal -10. Dysarthria 0 - Normal -11. Extinction and Inattention 0 - No abnormality -Total 2 Query Text:A score of 0 is "normal" or asymptomatic. Total possible score is 42 . ED: Notify Physician for NIHSS increase by > / = 3 points. Inpatient: RN or Physician to activate a stroke alert for NIHSS increase of > / = 3 points. Coma Scale [Assess] -Eye Opening Spontaneous -Motor Obeys Commands -Verbal Oriented [Total] -Coma Scale Total 15 01/19/25 1355 Cosigner Signature (if applicable): CC: Dr. Anne Arellano MD~ Signed [facility]09-04-2025 History and physical note [facility] Medical Records Department [address] [place] [address] H&P Exam - Hospitalist 01/18/25 1835 MR#: [id number] Acct: [id number] Name: CHARAN GARCIA Rep #:[id number] : 1960 64 From: Yris Rao MD PCP: Dr. Anne Arellano MD Status:ADM IN Location: [place] [address] HPI - General General Date of Admission: 01/18/25 Date of Service: 01/19/25 Chief Complaint: Left hand weakness, left facial droop and slurred speech HPI Narrative CHARAN GARCIA, is a 64-year-old male with a history of GERD, hypertension, tobaccouse, CVA who presented to [facility] ED 01/18/2025 due to acute onset of speech difficulties and facial drooping with last known well 1400 on day of presentation. Patient was a stroke alert in the ED. In the ED NIH initially 4. Patient afebrile, heart rate 97 and blood pressure 174/97, respiratory rate 16 pulse ox 99% on room air. CBC with white count of 7 and hemoglobin 16.1. BMP with a bicarb of 19.6, normal gap, glucose 119 otherwise no acute abnormalities. Troponin 6. CT brain with multiple scattered areas of presumably embolic acute infarct involving anterior right temporal lobe, right posterior frontal parietal lobes and left occipital lobe and CTA without LVO. Patient evaluated by telestroke in the ED and it was recommended patient be admitted for further stroke workup given the findings. Hospitalist contacted for admission. Patient evaluated bedside, he revealed that he did have intermittent numbness in tingling in various fingertips on his left hand that would last for 10 minutes and go away over the past 3 weeks and then on he had significant weakness in his left hand, he saw his PCP because he thought it was his neck or his elbow and was going to undergo workup for that however today at 2 PM developed slurred speech and left-sided facial droop prompting himto come to the ED. Patient feels similar to how he did when he arrived except he is intermittently getting the tingling feeling in his fingertips. Denies anyrecent fevers or chills, no headache or changes in vision, no other numbness, weakness, tingling. Does continue to smoke but has been cutting back. [facility] Medical History (Updated 01/19/25 @ 13:[address] Yris Rao MD) CVA (cerebral vascular accident) GERD (gastroesophageal reflux disease) Hiatal hernia HTN (hypertension) Hyperlipidemia Home Medications ?Medication ?Instructions ?Recorded ?Last Taken ?Type esomeprazole magnesium 20 mg 20 mg PO Q12H gerd 11/26/22 History capsule,delayed release cholecalciferol (vitamin D3) 125 125 mcg PO QDAY 07/20 Unknown History mcg (5,000 unit) capsule Held on 01/18/25. Instructions: Order Completed clopidogrel 75 mg tablet (Plavix) 75 mg PO QDAY Unknown History losartan 100 mg tablet 100 mg PO QDAY 07/20/24 Unkn own History naproxen sodium 220 mg capsule 220 mg PO Q12H PRN pain 07/20/24 Unknown History (Aleve) rosuvastatin 10 mg tablet (Crestor) 10 mg PO QDAY 10/09 Unknown History meloxicam 15 mg tablet 15 mg PO DAILY 01/18/25 Unkn own History prednisone 20 mg tablet 20 mg PO DAILY 01/18/25 Unkn own History Allergy/AdvReac Type Severity Reaction Status Date / Time No Known Allergies Allergy Verified 11/26/22 12:00 Family History (Updated 11/26/22 @ 16:[address] Charan Martinez MD) Mother CVA (cerebral vascular accident) Surgical History (Updated 11/26/22 @ 15:30 by Quynh Goldberg) History of ankle surgery Social History (Updated 07/20/24 @ 14:18 by Erin Guerrero) Smoking Status: Heavy Smoker (>10/day) substance use type: marijuana ROS ROS Narrative General: Denies fever/chills HENT: Denies headache, denies stuffy nose, denies sore throat EYES: Denies changes in vision Resp: Denies cough, denies shortness of breath Cardiac: Denies chest pain GI: Denies abdominal pain, denies changes in bowel, denies nausea/vomiting : Denies changes in urination Extremity: Denies swelling MSK: Weakness in left upper extremity neuro: Intermittent tingling in several fingertips and left arm Heme: Denies any bleeding or bruising Skin: Denies rashes Psychiatric: No complaints voiced Vital Signs Vital Signs Vital Signs: 01/18/25 16:57 01/18/25 17:10 01/18/25 17:14 Temperature 97.9 F 98.6 F Temperature Source Oral Oral Pulse Rate 97 86 Respiratory Rate 16 18 Blood Pressure 174/97 H 168/76 H Blood Pressure Mean 122 106 Pulse Ox 99 98 Oxygen Delivery Method Room Air Room Air Room Air 01/18/25 17:17 01/18/25 17:29 01/18/25 17:43 Temperature 98.7 F 97.8 F 98.7 F Temperature Source Oral Oral Oral Pulse Rate 85 79 70 Respiratory Rate 15 18 22 H Blood Pressure 164/74 H 162/76 H 162/72 H Blood Pressure Mean 104 104 102 Pulse Ox 98 98 97 Oxygen Delivery Method Room Air Room Air Room Air 01/18/25 17:56 01/18/25 17:59 01/18/25 18:15 Temperature 97.8 F 98.4 F 98.1 F Temperature Source Oral Oral Pulse Rate 75 69 77 Respiratory Rate 13 19 H 19 H Blood Pressure 162/72 H 169/81 H 175/97 H Blood Pressure Mean 102 110 123 Pulse Ox 96 97 98 Oxygen Delivery Method Room Air Room Air 01/18/25 18:29 Temperature 98.1 F Temperature Source Oral Pulse Rate 67 Respiratory Rate 23 H Blood Pressure 158/80 H Blood Pressure Mean 106 Pulse Ox 95 Oxygen Delivery Method Room Air Weight Weight: 70 kg Body Mass Index (BMI) 22.8 Physical Exam Narrative General: Alert, oriented, no apparent distress HEENT: Atraumatic, left lower facial droop Eyes: Anicteric, normal conjunctiva, extraocular movements intact, pupils equal Neck: Supple Respiratory: Clear to auscultation bilaterally, normal respiratory effort Cardiovascular: Regular rate and rhythm GI: Soft, nontender, nondistended Extremities: No edema Musculoskeletal: Strength 5 out of 5 in right upper extremity, 4- out of 5 left upper extremity, 5 out of 5 right lower extremity, 5 out of 5 left lower extremity Neuro: LUE weakness, left lower facial droop otherwise cranial nerves II throughXII intact, finger-nose intact with right hand, patient has dysmetria with left Skin: No rashes appreciated Psych: Cooperative Results Lab / Micro Data 01/19/25 07:40 01/19/25 07:40 Labs: Laboratory Results - last 24 hr 01/18/25 16:59: WBC 7.0, RBC 4.68, Hgb 16.1, Hct 45.0, MCV 96.2 H, MCH 34.4 H, MCHC 35.8, RDW Std Deviation 47.9 H, RDW Coeff of Birdie 13.5, Plt Count 293, MPV 9.5, Immature Gran % (Auto) 0.100, Neut %(Auto) 87.7 H, Lymph % (Auto) 9.2 L, [place] % (Auto) 2.7, Eos % (Auto) 0.0, Baso % (Auto) 0.3, Absolute Neuts (auto) 6.2, Absolute Lymphs (auto) 0.65 L, Nucleated RBC % 0, PT 12.9, INR 1.0, APTT 29.8, Sodium 139, Potassium 3.7, Chloride 105, Carbon Dioxide 19.6 L, Anion Gap 14, BUN 14, Creatinine 0.76, Estim Creat Clear Calc 89.93, Est GFR (MDRD) Non- Af99, BUN/Creatinine Ratio 18.7, Glucose 119 H, Calcium 9.2, Troponin T High Sens 6 Imaging Radiology Impression Brain CT 01/18/25 16:59 IMPRESSION: 1. 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 2. No acute intracranial hemorrhage/hemorrhagic conversion, or mass-effect. 3. No intracranial or cervical large vessel arterial occlusion or significant stenosis. Reading Location[id number] Head/Neck CTA 01/18/25 17:00 IMPRESSION: 1. 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 2. No acute intracranial hemorrhage/hemorrhagic conversion, or mass-effect. 3. No intracranial or cervical large vessel arterial occlusion or significant stenosis. Reading Location: [id number] Assessment & Plan Assessment/Plan (1) Acute CVA (cerebrovascular accident): PLAN: Plan # Facial droop and speech difficulties with positive CT for CVA -Admit to tele -CT head w/ with multiple scattered areas of presumably embolic acute infarct involving anterior right temporal lobe, right posterior frontal parietal lobes and left occipital lobe and CTA without LVO -CTA head and neck no LVO -MRI ordered -NIH q4hr -asa, statin -Echo, previously negative bubble study -PT/OT/Speech eval -Teleneuro consult placed -Hold BP medications to allow for permissive hypertension for 24 hours unless SBP greater than 220 or DBP greater than 120 or until stroke is ruled out # History of CVA -Appears patient was not taking his clopidogrel on an outpatient basis -Will need to newspaper delivery counselor patient on importance of compliance #Hypertension - Was supposed to be taking losartan but apparently has not taking this -Will be holding antihypertensives as above, would recommend restarting before or on discharge #GERD -Continue PPI #Tobacco use -Advise cessation -Nicotine replacement available if desired #DVT ppx: SCDs Yris Rao MD Charges/Coding Visit Charges Inpatient E&M: 65824 Init Hosp L2 01/19/25 1306 Cosigner Signature (if applicable): CC: Dr. Anne Arellano MD; Dr. Yris Rao MD~ Signed [facility]09-03-2025 Discharge summary Author Jorge Mono [facility] Note Date/Time January 18, 2025 7:02pm [facility] Medical Records Department [address] [place] [address] Emergency Department Summary 01/18/25 MR#: [id number] Acct: [id number] Name: CHARAN GARCIA Rep #:[id number] : 1960 64 From: Jorge Bell PCP: Dr. Anne Arellano MD Status:ADM IN Location: [address] History of Present Illness Chief Complaint: Neuro S/Sx PFSH [facility] Medical History (Updated 01/18/25 @ 17:54 by Maurizio Estrada) Hyperlipidemia HTN (hypertension) CVA (cerebral vascular accident) Hiatal hernia GERD (gastroesophageal reflux disease) Home Medications ?Medication ?Instructions ?Recorded ?Last Taken ?Type esomeprazole magnesium 20 mg 40 mg PO Q12H 11/26/22 History capsule,delayed release cholecalciferol (vitamin D3) 125 125 mcg PO QDAY 07/20 Unknown History mcg (5,000 unit) capsule Held on 01/18/25. Instructions: Order Completed clopidogrel 75 mg tablet (Plavix) 75 mg PO QDAY Unknown History losartan 100 mg tablet 100 mg PO QDAY 07/20/24 Unkn own History naproxen sodium 220 mg capsule 220 mg PO Q12H PRN pain 07/20/24 Unknown History (Aleve) rosuvastatin 10 mg tablet (Crestor) 10 mg PO QDAY 10/09 Unknown History meloxicam 15 mg tablet 15 mg PO DAILY 01/18/25 Unkn own History prednisone 20 mg tablet 20 mg PO DAILY 01/18/25 Unkn own History Allergy/AdvReac Type Severity Reaction Status Date / Time No Known Allergies Allergy Verified 11/26/22 12:00 Family History (Updated 11/26/22 @ 16:[address] Charan Martinez MD) Mother CVA (cerebral vascular accident) Surgical History (Updated 11/26/22 @ 15:30 by Quynh Goldberg) History of ankle surgery Social History (Updated 07/20/24 @ 14:18 by Erin Guerrero) Smoking Status: Heavy Smoker (>10/day) substance use type: marijuana EXAM Physical Exam Const Vital Signs: 01/18/25 16:57 01/18/25 17:10 01/18/25 17:14 Temperature 97.9 F 98.6 F Temperature Source Oral Oral Pulse Rate 97 86 Respiratory Rate 16 18 Blood Pressure 174/97 H 168/76 H Blood Pressure Mean 122 106 Pulse Ox 99 98 Oxygen Delivery Method Room Air Room Air Room Air 01/18/25 17:17 01/18/25 17:29 01/18/25 17:43 Temperature 98.7 F 97.8 F 98.7 F Temperature Source Oral Oral Oral Pulse Rate 85 79 70 Respiratory Rate 15 18 22 H Blood Pressure 164/74 H 162/76 H 162/72 H Blood Pressure Mean 104 104 102 Pulse Ox 98 98 97 Oxygen Delivery Method Room Air Room Air Room Air 01/18/25 17:56 Temperature 97.8 F Temperature Source Pulse Rate 75 Respiratory Rate 13 Blood Pressure 162/72 H Blood Pressure Mean 102 Pulse Ox 96 Oxygen Delivery Method MDM MDM MDM Narrative Medical decision making narrative: HISTORY OF PRESENT ILLNESS: Chief complaint: 64-year-old male history of CVA, GERD, hypertension, hyperlipidemia presents with acute onset of speech difficulties and facial drooping. Last known well was 1400 on 01/18/2025. Denies blood thinners. Denies recent head trauma. Per the patient significant other speech is much different. Per staff, the patient's face is also asymmetric. REVIEW OF SYSTEMS: Pertinent positives: Speech difficulty, facial drooping Pertinent negatives: Headache, chest pain PHYSICAL EXAM: Nursing triage notes reviewed, Vital signs reviewed Constitutional: please see mdm HENT: MMM Eyes: Pupils equal round and reactive to light, Extraocular muscles intact Neck: No stridor, no JVD, full neck ROM Lungs: Clear to auscultation, No wheezing or rales. No increased work of breathing, no conversational dyspnea, no accessory muscle use, no nasal flaring. No respiratory distress noted Heart: Regular rate and rhythm, No murmurs, No rubs and No gallops, 2+ distal pulses (radial, femoral, posterior tibial) in all extremities Abdomen: Soft, there is no tenderness, rigidity, rebound or guarding, no obviousperitoneal signs, no palpable pulsatile abdominal masses, no auscultated abdominal bruit : No CVAT Extremities: No edema Neuro: alert, oriented , left-sided facial droop noted, aphasia, dysarthria noted. No obvious extremity weakness or ataxia noted. No obvious sensory deficits. Patient follows commands. NIH of 4 Skin: No rash or lesions noted MEDICAL DECISION MAKING: Chief Complaint: please see HPI External records reviewed: Reviewed prior medications. No anticoagulants noted. The patient is on aspirin and Plavix however. Reviewed prior imaging studies: Reviewed MRI of the brain from 2022 which showed subacute ischemic infarct in the right upper alessio Factors affecting care: as per [facility] Social determinants of health: History of tobacco abuse History obtained from others: The patient significant other Consults: Stroke radiology, stroke neurology (Dr. Reyes), internal medicine (Dr. Rao) MDM Narrative: The patient was initially hemodynamically stable, afebrile and nontoxic- appearing. Initial neurologic exam showed an NIHSS of 4. The patient was then the TNK and thrombectomy window. Code stroke was called from triage given left-sided facial drooping and speech difficulties. Patient after a brief but thorough neurologic exam including fullNIH stroke scale was taken directly to the CT scanner suite. I considered the following differential diagnosis: Acute CVA, TIA, focal seizure, ICH I obtained a broad lab and imaging workup to further determine if the patient was suffering from a life-threatening etiology. ALL IMAGES (IF OBTAINED) HAVE BEEN PERSONALLY REVIEWED AND INTERPRETED BY MYSELF. EKG with normal sinus rhythm rate 61, normal axis, normal intervals, no STEMI CBC with no leukocytosis, no anemia or thrombocytopenia No coagulopathy CT scan of the head shows no evidence of ICH but does show some hypodensities per stroke neurology. Also shows embolic CVA CTA of the head neck shows no evidence of large vessel occlusion BMP [] The synthesis of the patient's history, physical exam, labs images suggest acute CVA. Per stroke neurology recommendation will admit to [facility] for MRI and risk factor modification. Discussed with Dr. Rao The patient and/or family, caregivers express understanding. The patient and/or family, caregivers agrees with the plan. Shared decision making: I will have a discussion with the patient and or visitors regarding risk/benefits of further testing or admission. They will be made aware of of the risk/benefits inherent in this decision they will be given the opportunity to voice understanding. Total critical care time today provided was at least 35 minutes. This excludes separately billable procedures. Critical care time (if documented) is secondary to the patient having high probability of clinically significant/life threatening deterioration in the patient's condition which required my urgent intervention. Impression: 1. Facial droop 2. Slurred speech 3. Acute CVA Dispo: Admit to PCU This note was generated with [employer] dictation software. It may contain incorrect words, spelling, and punctuation that were not noted in review of the chart prior to signing. Lab Data Labs: Laboratory Results - last 24 hr 01/18/25 16:59 WBC 7.0 RBC 4.68 Hgb 16.1 Hct 45.0 MCV 96.2 H MCH 34.4 H MCHC 35.8 RDW Std Deviation 47.9 H RDW Coeff of Birdie 13.5 Plt Count 293 MPV 9.5 Immature Gran % (Auto) 0.100 Neut % (Auto) 87.7 H Lymph % (Auto) 9.2 L [place] % (Auto) 2.7 Eos % (Auto) 0.0 Baso % (Auto) 0.3 Absolute Neuts (auto) 6.2 Absolute Lymphs (auto) 0.65 L Nucleated RBC % 0 PT 12.9 INR 1.0 APTT 29.8 Radiography Diagnostic Testing: Clinical Impression(s) from Imaging Studies Brain CT 01/18/25 16:59 IMPRESSION: 1. 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 2. No acute intracranial hemorrhage/hemorrhagic conversion, or mass-effect. 3. No intracranial or cervical large vessel arterial occlusion or significant stenosis. Reading [id number] Head/Neck CTA 01/18/25 17:00 IMPRESSION: 1. 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 2. No acute intracranial hemorrhage/hemorrhagic conversion, or mass-effect. 3. No intracranial or cervical large vessel arterial occlusion or significant stenosis. Reading Location: [id number] Discharge Plan Triage Chief Complaint: Neuro S/Sx ED Provider: Jorge Villareal Dx/Rx/DC Orders Prescriptions: No Action clopidogrel [Plavix] 75 mg tablet 75 mg PO QDAY rosuvastatin [Crestor] 10 mg tablet 10 mg PO QDAY losartan 100 mg tablet 100 mg PO QDAY naproxen sodium [Aleve] 220 mg capsule 220 mg PO Q12H PRN (Reason: pain) cholecalciferol (vitamin D3) 125 mcg (5,000 unit) capsule 125 mcg PO QDAY esomeprazole magnesium 20 mg capsule,delayed release(DR/EC) 40 mg PO Q12H meloxicam 15 mg tablet 15 mg PO DAILY prednisone 20 mg tablet 20 mg PO DAILY Primary Care Provider: Anne Arellano Referrals: Anne Arellano MD [Primary Care Provider] - Print Language: [place] What to do if you have Problems For any increased pain, shortness of breath, bleeding, nausea or vomiting, chestpain, or any unexpected problems, contact your Primary Care Provider. Call [facility] ([phone]) or report to the closest Emergency Room. Call 911 if necessary. 01/18/251901 <Electronically signed by Jorge Villareal DO> Cosigner Signature (if applicable): CC: Dr. Anne Arellano MD ~ Signed [facility] Work Phone: 1(682) 511-291909-03-2025 Evaluation note* Diagnosis Onset Date Resolution Status Admit Date Acute CVA (cerebrovascular accident) acute January 18, 025 6:35pm [facility] Work Phone: 1(910) 992-211209-03-2025 Discharge summary [facility] Medical Records Department [address] [place] [id number] Emergency Department Summary 01/18/25 MR#: [id number] Acct: [id number] Name: CHARAN GARCIA Rep #:[id number] : 1960 64 From: Jorge Bell PCP: Dr. Anne Arellano MD Status:ADM IN Location: [address] History of Present Illness Chief Complaint: Neuro S/Sx [facility] Medical History (Updated 01/18/25 @ 17:54 by Maurizio Estrada) Hyperlipidemia HTN (hypertension) CVA (cerebral vascular accident) Hiatal hernia GERD (gastroesophageal reflux disease) Home Medications ?Medication ?Instructions ?Recorded ?Last Taken ?Type esomeprazole magnesium 20 mg 40 mg PO Q12H 11/26/22 History capsule,delayed release cholecalciferol (vitamin D3) 125 125 mcg PO QDAY 07/20 Unknown History mcg (5,000 unit) capsule Held on 01/18/25. Instructions: Order Completed clopidogrel 75 mg tablet (Plavix) 75 mg PO QDAY Unknown History losartan 100 mg tablet 100 mg PO QDAY 07/20/24 Unkn own History naproxen sodium 220 mg capsule 220 mg PO Q12H PRN pain 07/20/24 Unknown History (Aleve) rosuvastatin 10 mg tablet (Crestor) 10 mg PO QDAY 10/09 Unknown History meloxicam 15 mg tablet 15 mg PO DAILY 01/18/25 Unkn own History prednisone 20 mg tablet 20 mg PO DAILY 01/18/25 Unkn own History Allergy/AdvReac Type Severity Reaction Status Date / Time No Known Allergies Allergy Verified 11/26/22 12:00 Family History (Updated 11/26/22 @ 16:[address] Charan Martinez MD) Mother CVA (cerebral vascular accident) Surgical History (Updated 11/26/22 @ 15:30 by Quynh Goldberg) History of ankle surgery Social History (Updated 07/20/24 @ 14:18 by Erin Guerrero) Smoking Status: Heavy Smoker (>10/day) substance use type: marijuana EXAM Physical Exam Const Vital Signs: 01/18/25 16:57 01/18/25 17:10 01/18/25 17:14 Temperature 97.9 F 98.6 F Temperature Source Oral Oral Pulse Rate 97 86 Respiratory Rate 16 18 Blood Pressure 174/97 H 168/76 H Blood Pressure Mean 122 106 Pulse Ox 99 98 Oxygen Delivery Method Room Air Room Air Room Air 01/18/25 17:17 01/18/25 17:29 01/18/25 17:43 Temperature 98.7 F 97.8 F 98.7 F Temperature Source Oral Oral Oral Pulse Rate 85 79 70 Respiratory Rate 15 18 22 H Blood Pressure 164/74 H 162/76 H 162/72 H Blood Pressure Mean 104 104 102 Pulse Ox 98 98 97 Oxygen Delivery Method Room Air Room Air Room Air 01/18/25 17:56 Temperature 97.8 F Temperature Source Pulse Rate 75 Respiratory Rate 13 Blood Pressure 162/72 H Blood Pressure Mean 102 Pulse Ox 96 Oxygen Delivery Method [facility] Narrative Medical decision making narrative: HISTORY OF PRESENT ILLNESS: Chief complaint: 64-year-old male history of CVA, GERD, hypertension, hyperlipidemia presents with acute onset of speech difficulties and facial drooping. Last known well was 1400 on 01/18/2025. Denies blood thinners. Denies recent head trauma. Per the patient significant other speech is much different. Per staff, the patient's face is also asymmetric. REVIEW OF SYSTEMS: Pertinent positives: Speech difficulty, facial drooping Pertinent negatives: Headache, chest pain PHYSICAL EXAM: Nursing triage notes reviewed, Vital signs reviewed Constitutional: please see [facility] HENT: MMM Eyes: Pupils equal round and reactive to light, Extraocular muscles intact Neck: No stridor, no JVD, full neck ROM Lungs: Clear to auscultation, No wheezing or rales. No increased work of breathing, no conversational dyspnea, no accessory muscle use, no nasal flaring. No respiratory distress noted Heart: Regular rate and rhythm, No murmurs, No rubs and No gallops, 2+ distal pulses (radial, femoral, posterior tibial) in all extremities Abdomen: Soft, there is no tenderness, rigidity, rebound or guarding, no obviousperitoneal signs, no palpable pulsatile abdominal masses, no auscultated abdominal bruit : No CVAT Extremities: No edema Neuro: alert, oriented , left-sided facial droop noted, aphasia, dysarthria noted. No obvious extremity weakness or ataxia noted. No obvious sensory deficits. Patient follows commands. NIH of 4 Skin: No rash or lesions noted MEDICAL DECISION MAKING: Chief Complaint: please see [facility] External records reviewed: Reviewed prior medications. No anticoagulants noted. The patient is on aspirin and Plavix however. Reviewed prior imaging studies: Reviewed MRI of the brain from 2022 whichshowed subacute ischemic infarct in the right upper alessio Factors affecting care: as per HPI Social determinants of health: History of tobacco abuse History obtained from others: The patient significant other Consults: Stroke radiology, stroke neurology (Dr. Reyes), internal medicine (Dr. Rao) [facility] Narrative: The patient was initially hemodynamically stable, afebrile and nontoxic- appearing. Initial neurologic exam showed an NIHSS of 4. The patient was then the TNK and thrombectomy window. Code stroke was called from triage given left-sided facial drooping and speech difficulties. Patient after a brief but thorough neurologic exam including fullNIH stroke scale was taken directly to the CT scanner suite. I considered the following differential diagnosis: Acute CVA, TIA, focal seizure, ICH I obtained a broad lab and imaging workup to further determine if the patient was suffering from a life-threatening etiology. ALL IMAGES (IF OBTAINED) HAVE BEEN PERSONALLY REVIEWED AND INTERPRETED BY MYSELF. EKG with normal sinus rhythm rate 61, normal axis, normal intervals, no STEMI CBC with no leukocytosis, no anemia or thrombocytopenia No coagulopathy CT scan of the head shows no evidence of ICH but does show some hypodensities per stroke neurology.Also shows embolic CVA CTA of the head neck shows no evidence of large vessel occlusion BMP [] The synthesis of the patient's history, physical exam, labs images suggest acute CVA. Per stroke neurology recommendation will admit to [facility] for MRI and risk factor modification. Discussed with Dr. Rao The patient and/or family, caregivers express understanding. The patient and/or family, caregivers agrees with the plan. Shared decision making: I will have a discussion with the patient and or visitors regarding risk/benefits of further testing or admission. They will be made aware of of the risk/benefits inherent in this decision they will be given the opportunity to voice understanding. Total critical care time today provided was at least 35 minutes. This excludes separately billable procedures. Critical care time (if documented) is secondary to the patient having high probability of clinically significant/life threatening deterioration in the patient's condition which required myurgent intervention. Impression: 1. Facial droop 2. Slurred speech 3. Acute CVA Dispo: Admit to PCU This note was generated with [employer] dictation software. It may contain incorrect words, spelling, and punctuation that were not noted in review of the chart prior to signing. Lab Data Labs: Laboratory Results - last 24 hr 01/18/25 16:59 WBC 7.0 RBC 4.68 Hgb 16.1 Hct 45.0 MCV 96.2 H MCH 34.4 H MCHC 35.8 RDW Std Deviation 47.9 H RDW Coeff of Birdie 13.5 Plt Count 293 MPV 9.5 Immature Gran % (Auto) 0.100 Neut % (Auto) 87.7 H Lymph % (Auto) 9.2 L [place] % (Auto) 2.7 Eos % (Auto) 0.0 Baso % (Auto) 0.3 Absolute Neuts (auto) 6.2 Absolute Lymphs (auto) 0.65 L Nucleated RBC % 0 PT 12.9 INR 1.0 APTT 29.8 Radiography Diagnostic Testing: Clinical Impression(s) from Imaging Studies Brain CT 01/18/25 16:59 IMPRESSION: 1. 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 2. No acute intracranial hemorrhage/hemorrhagic conversion, or mass-effect. 3. No intracranial or cervical large vessel arterial occlusion or significant stenosis. Reading Location: [id number] Head/Neck CTA 01/18/25 17:00 IMPRESSION: 1. 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 2. No acute intracranial hemorrhage/hemorrhagic conversion, or mass-effect. 3. No intracranial or cervical large vessel arterial occlusion or significant stenosis. Reading Location: [id number] Discharge Plan Triage Chief Complaint: Neuro S/Sx ED Provider: Jorge Villareal Dx/Rx/DC Orders Prescriptions: No Action clopidogrel [Plavix] 75 mg tablet 75 mg PO QDAY rosuvastatin [Crestor] 10 mg tablet 10 mg PO QDAY losartan 100 mg tablet 100 mg PO QDAY naproxen sodium [Aleve] 220 mg capsule 220 mg PO Q12H PRN (Reason: pain) cholecalciferol (vitamin D3) 125 mcg (5,000 unit) capsule 125 mcg PO QDAY esomeprazole magnesium 20 mg capsule,delayed release(DR/EC) 40 mg PO Q12H meloxicam 15 mg tablet 15 mg PO DAILY prednisone 20 mg tablet 20 mg PO DAILY Primary Care Provider: Anne Arellano Referrals: Anne Arellano MD [Primary Care Provider] - Print Language: [place] What to do if you have Problems For any increased pain, shortness of breath, bleeding, nausea or vomiting, chestpain, or any unexpected problems, contact your Primary Care Provider. Call [facility] ([phone]) or report tothe closest Emergency Room. Call 911 if necessary. 01/18/25 1902 Cosigner Signature (if applicable): CC: Dr. Anne Arellano MD ~ Signed [facility]09-03-2025 Radiology Diagnostic study note [facility] Imaging Services [address] [place] [address] Wrist min 3 Views MR#: [id number] Acct: [id number] Name: CHARAN GARCIA Rep #: [id number] : 1960 M 64 From: Daniela Haji MD PCP: Dr. Anne Arellano MD Status: REG CL I Study:Wrist min 3 Views Date of Exam: Exam# [id number] Ordering Dr: Yaritza Arellano MD EXAM: XR Left Wrist Complete, 3 or More Views CLINICAL INDICATION: PAIN WITH NUMBNESS TECHNIQUE: Frontal, lateral and oblique views of the left wrist. COMPARISON: No relevant prior studies available. FINDINGS: BONES/JOINTS: Small bony fragment of the triquetrum could be avulsion fracture of indeterminate age. Mild widening of the scapholunate joint space concerning for ligamentous injury. Further evaluation with MRI is recommended. 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 Mild degenerative changes of the intercarpal joints. Moderatedegenerative change of the 1st carpometacarpal joint. No dislocation. SOFT TISSUES: Unremarkable. No radiopaque foreign body. RAD/Wrist min 3 Views IMPRESSION: 1. Small bony fragment of the triquetrum could be avulsion fracture of indeterminate age. 2. Mild widening of the scapholunate joint space concerning for ligamentous injury. Further evaluation with MRI is recommended. 3. Degenerative changes as above. Reading Location: [facility] CC: Dr. Anne Arellano MD ~ Digital Color Press Operator: Signed [facility]09-03-2025 Radiology Diagnostic study note [facility] [address] [place], [place] [id number] STROKE Brain/Head without Cont MR#: [id number] Acct: [id number] Name: CHARAN GARCIA Rep #: [id number] : 1960 M 64 From: [facility] [place] stephon Thomas MD PCP: Dr. Anne Arellano MD Status: REG ER Study:STROKE Brain/Head without Cont Date of Exam: 01/18/25 Exam# [id number] Ordering Dr: Bubba Villareal DO PROCEDURE: STROKE CT BRAIN/HEAD WITHOUT CONTRAST STROKE CTA HEAD AND NECK WITH IV CONTRAST REASON FOR EXAM: NEURO DEFICIT, ACUTE, STROKE SUSPECTED TECHNIQUE: Procedure Code: CTBR.ST; CTCTA.ST.HN Modality: CT Procedure: STROKE BRAIN/HEAD WITHOUT CONT; STROKECTA HEAD AND NECK W/CON Multiplanar 2D reconstructions, and 3D / MIP post processing was performed. 100 cc of Isovue 370 intravenous contrast was administered. One or more dose reduction techniques were used (e.g., Automated exposure control, adjustment of the mA and/or kV according to patient size, use of iterative reconstruction technique. RADIATION DOSE SUMMARY: CT head: DLP: 849.54 mGycm CTA head/neck: DLP: 1624.82 mGycm COMPARISON: Brain MRI 11/27/2022. CT head 11/26/2022. FINDINGS: NONCONTRAST CT HEAD: Multiple scattered small areas of acute infarct involving the anterior right temporal lobe, right posterior frontoparietal lobes, and left occipital lobe, presumably embolic. No acute intracranial hemorrhage/hemorrhagic conversion on this exam. No extra- axial collection, mass-effect, or hydrocephalus. Unremarkable orbits. Well-aerated sinuses and mastoid air cells. CTA HEAD: Patent major intracranial arterial vasculature. No large vessel occlusion, significant flow-limiting stenosis, saccular aneurysm, or vascular malformation identified. Patent dural venous sinuses. CTA NECK: Conventional aortic arch branching. Bilateral cervical carotid and vertebral arteries are patent without stenosis. No aneurysm or dissection. Dominant left vertebral artery supplies the posterior circulation, with diffusely hypoplastic nondominant right vertebral artery which terminates distally at PICA branches. Mild mixed atheromatous plaque at the carotid bifurcations without any significant luminal narrowing. CT/STROKE Brain/Head without Cont IMPRESSION: 1. 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 2. No acute intracranial hemorrhage/hemorrhagic conversion, or mass-effect. 3. No intracranial or cervical large vessel arterial occlusion or significant stenosis. Reading Location: [id number] CC: Dr. Anne Arellano MD; Dr. Jorge Villareal DO ~ Digital Color Press Operator: Signed [facility]09-03-2025 Radiology Diagnostic study note [facility] [address] [place] [address] STROKE CTA Head AND Neck W/Con MR#: [id number] Acct: [id number] Name: CHARAN GARCIA Rep #: [id number] : 1960 M 64 From: Ryan Thomas MD PCP: Dr. Anne Arellano MD Status: REG ER Study:STROKE CTA Head AND Neck W/Con Date of Exam: 01/18/25 Exam# [id number] Ordering Dr: Bubba Villareal DO PROCEDURE: STROKE CT BRAIN/HEAD WITHOUT CONTRAST STROKE CTA HEAD AND NECK WITH IV CONTRAST REASON FOR EXAM: NEURO DEFICIT, ACUTE, STROKE SUSPECTED TECHNIQUE: Procedure Code: CTBR.ST; CTCTA.ST.HN Modality: CT Procedure: STROKE BRAIN/HEAD WITHOUT CONT; STROKECTA HEAD AND NECK W/CON Multiplanar 2D reconstructions, and 3D / MIP post processing was performed. 100 cc of Isovue 370 intravenous contrast was administered. One or more dose reduction techniques were used (e.g., Automated exposure control, adjustment of the mA and/or kV according to patient size, use of iterative reconstruction technique. RADIATION DOSE SUMMARY: CT head: DLP: 849.54 mGycm CTA head/neck: DLP: 1624.82 mGycm COMPARISON: Brain MRI 11/27/2022. CT head 11/26/2022. FINDINGS: NONCONTRAST CT HEAD: Multiple scattered small areas of acute infarct involving the anterior right temporal lobe, right posterior frontoparietal lobes, and left occipital lobe, presumably embolic. No acute intracranial hemorrhage/hemorrhagic conversion on this exam. No extra- axial collection, mass-effect, or hydrocephalus. Unremarkable orbits. Well-aerated sinuses and mastoid air cells. CTA HEAD: Patent major intracranial arterial vasculature. No large vessel occlusion, significant flow-limiting stenosis, saccular aneurysm, or vascular malformation identified. Patent dural venous sinuses. CTA NECK: Conventional aortic arch branching. Bilateral cervical carotid and vertebral arteries are patent without stenosis. No aneurysm or dissection. Dominant left vertebral artery supplies the posterior circulation, with diffusely hypoplastic nondominant right vertebral artery which terminates distally at PICA branches. Mild mixed atheromatous plaque at the carotid bifurcations without any significant luminal narrowing. CT/STROKE CTA Head AND Neck W/Con IMPRESSION: 1. 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 2. No acute intracranial hemorrhage/hemorrhagic conversion, or mass-effect. 3. No intracranial or cervical large vessel arterial occlusion or significant stenosis. Reading [id number] CC: Dr. Anne Arellano MD; Dr. Jorge Villareal DO ~ Digital Color Press Operator: Signed [facility]04-09-2025 Radiology Diagnostic study note [facility] Imaging Services [address] [place], [place] [id number] CT Chest, Abd, Pel w/Contrast MR#: [id number] Acct: [id number] Name: CHARAN GARCIA Rep #: [id number] : 1960 M 64 From: Jannie Gomez MD PCP: Dr. Anne Arellano MD Status: REG CL I Study:CT Chest, Abd, Pel w/Contrast Date of E xam: 08/23/24 Exam# [id number] Ordering Dr: Roby Dang DO PROCEDURE: CT [...] colon. No small bowel or large bowel obstructionor dilation. Diverticulosis within the sigmoid colon. Appendix: Not visualized Lymph nodes: No lymphadenopathy. Vasculature: Patent vasculature. Peritoneum / Retroperitoneum: Unremarkable Bones: No aggressive osseous lesions. No acute fractures. CT/CT Chest, Abd, Pel w/Contrast IMPRESSION: *Cavitary lesion within the superior segment of the right lower lobe. *Mild upper lobe predominant centrilobular emphysematous changes within bilateral lungs. *Diverticulosis within the sigmoid colon. Reading Location: [facility] CC: Dr. Anne Arellano MD; Oliver Friend, DO ~ Digital Color Press Operator: Signed [facility]03-05-2025 Evaluation note* Diagnosis Onset Date Resolution Status Admit Date Gastroesophageal reflux disease none active July 20, 2024 1:42pm [facility] Work Phone: 1(538) 328-168801-15-2024 Hospital Discharge instructions Patient Education 06/01/2023 10:26:46 Steps to Quit Smoking, Dxjk-qy-Zxdv Steps to Quit Smoking Smoking tobacco is [...] a prescription, and some you can buy xnwf-ovx-krvyqrt. Some medicines may contain a drug called [...] as websites. Examples include QuitGuide from the [facility] and smokefree.gov What things can I do to make it easier to quit? Talk to your family and friends. Ask them to support and encourage you. Call a phone quitline (NOW), reach out to support groups, or work [...] 02/28/2010 Document Revised: 07/22/2019 Document Reviewed: 07/23/2019 [employer] Patient Education 2020 [employer]. 06/01/2023 10:26:43 Smoking Tobacco Information, Adult Smoking [...] smokers have a higher risk for: ?Sudden infant syndrome (SIDS). ?Ear infections. ?Lung infections. If [...] quitting smoking from: HelpGuide.org: www.helpguide.org Smokefree.gov: smokefree.gov Dutch Lung Association: www.lung.org Contact a health care [...] 05/19/2017 Document Revised: 06/23/2018 Document Reviewed: 05/19/2017 [employer] Patient Education 2020 [employer]. 06/01/2023 10:26:39 Coping with Quitting Smoking Coping [...] ?Suck on hard candies or a straw. ?[place] your teeth. Keep your hands and body [...] group. Call a quit line, such as 0-184-ZPQLPact FitnessNOW. Talk with your health care provider about [...] 05/01/2017 Document Revised: 04/16/2018 Document Reviewed: 05/01/2017 [employer] Patient Education 2020 [employer]. 06/01/2023 10:26:09 Monitored Anesthesia Care, Care After [...] before eating solid foods. General instructions Take cave-dab-lksqdub and prescription medicines only as told by [...] 08/24/2016 Document Revised: 08/02/2018 Document Reviewed: 08/24/2016 [employer] Patient Education 2020 [employer]. 06/01/2023 10:26:04 Esophagogastroduodenoscopy, Care After (23925) Esophagogastroduodenoscopy, Care After Refer to this sheet [...] 04/20/2013 Document Revised: 10/09/2016 Document Reviewed: 03/27/2016 [employer] Interactive Patient Education 2019 [employer] Inc. Follow Up Care 05/13/2023 11:35:08 With:CHASIDY LAURENT MD Address: [address] [phone] When: Unknown Comments:CALL DR LAURENT WITH ANY QUESTONS OR CONCERNS. GO TO THE EMERGENCY ROOM WITH ANY URGENT CONCERNS. [facility] 01-15-2024 Note Discharge Instructions Thank you for allowing [facility] to assist you with your healthcare needs. The following is importantdischarge information regarding your hospital visit. Your Care Team DR. LAURENT. Your Diagnosis Gastroesophageal reflux What to do next Follow Up Appointments Follow Up with CHASIDY LAURENT MD When Why: CALL DR LAURENT WITH ANY QUESTONS OR CONCERNS. GO TO THE EMERGENCY ROOM WITH ANY URGENT CONCERNS. Where: [address] [place] [phone] The Following Activity and Diet Have Been [...] a prescription, and some you can buy cxtt-cfx-dquxpkx. Some medicines may contain a drug called [...] as websites. Examples include QuitGuide from the [facility] and smokefree.gov What things can I do to make it easier to quit? Talk to your family and friends. Ask them to support and encourage you. Call a phone quitline (5-530-VCRO-NOW), reach out to support groups, or work [...] 02/28/2010 Document Revised: 07/22/2019 Document Reviewed: 07/23/2019 [employer] Patient Education 2020 [employer]. Smoking Tobacco Information, Adult Smoking tobacco can [...] quitting smoking from: HelpGuide.org: www.helpguide.org Smokefree.gov: smokefree.gov Dutch Lung Association: www.lung.org Contact a health care [...] 05/19/2017 Document Revised: 06/23/2018 Document Reviewed: 05/19/2017 [employer] Patient Education 2020 [employer]. Coping with Quitting Smoking Quitting smoking [...] on hard candies or a straw. ? [place] your teeth. Keep your hands and body [...] group. Call a quit line, such as 6-144-HQMB-NOW. Talk with your health care provider about [...] 05/01/2017 Document Revised: 04/16/2018 Document Reviewed: 05/01/2017 [employer] Patient Education 2020 [employer]. Monitored Anesthesia Care, Care After These [...] before eating solid foods. General instructions Take yljb-xpe-lovdvjc and prescription medicines only as told by [...] 08/24/2016 Document Revised: 08/02/2018 Document Reviewed: 08/24/2016 [employer] Patient Education 2020 [employer]. Esophagogastroduodenoscopy, Care After Refer to this [...] 04/20/2013 Document Revised: 10/09/2016 Document Reviewed: 03/27/2016 [employer] Interactive Patient Education 2019 [employer] Inc. Additional Information VACCINATE! IT SAVES LIVES! Members of the community who have not yet received the COVID-19 vaccine and would like to receive it can visit one of [facility] vaccine clinics. There are many vaccine clinic locations within the [facility]. For locations and available times, please visit https://gettheshot.coronavirus.[place].gov/. It is important to note that some COVID mobile vaccine clinics are held outdoors and may be canceled in rainy or stormy conditions. To learn more about pediatric vaccinations (ages 5-11), we invite you to visit the [facility] webpage. https://www.[facility].org/pages/5369-Roowf-Fcxlfvrgxhi-Tvnapgjbwg-Qhcqc-Ilx stions.htmlTo learn more about the COVID-19 vaccine, we invite you to visit the CDC website for a list of frequently asked questions.https://www.cdc.gov/coronavirus/2019-ncov/vaccines/faq.html [facility] Patient [facility] Access Instructions: Stay connected with your healthcare team and access your personal medical information anytime with the [facility] Patient Portal. Please follow the directions below to create your [facility] account: 1.Access the email account you provided upon registration to the hospital/physician office.2.Look for an invitation email from [facility].3.Open the email and access the invitation link: AcceptInvitation to [facility]4.Fill in the required juarez to create your account. To access your account, visit [email or web address]. Click the blue button labeled "Access Patient Portal" and then log in with the username and password that you created in the steps above. You will be able to view your test results, lab results, a summary of your visits, upcoming appointments and more. There is also a convenient messaging option where you can send secure messages to your p Ofuzvider. In addition, you will have the ability to download any documents or summaries to your computer and/or send the information securely to a physician. Remember that your healthcare information is confidential, so carefully consider who you will allowto register on the [facility] Patient Portal for access to your information. You can also access the [facility] Patient [facility] on the [facility] mirela. Simply click on "Patient Portal" and then log into your account. If you would like to receive a full copy of your medical records, please contact the [facility] Medical Records Department by calling [phone], Thursday through Thursday between 8 a.m. and [...] Call your local pharmacy or go to [email or web address] Tactical/[email or web address] to find one close to you.3.Make use of household items: Use cat litter or old coffee grounds to dispose medications if other options arenot available. Mix your drugs with these household products, seal them in an airtight container andthrow it into the garbage. Call [facility]: [phone] to be sure your drugs can be [...] Patient Education Materials Steps to Quit Smoking, Mpje-cd-Wphw Smoking Tobacco Information, Adult Coping with Quitting Smoking Monitored Anesthesia Care, Care After Esophagogastroduodenoscopy, Care After (22859) Medication Leaflets My discharge plan and instructions have been reviewed and explained to me and I,CHARAN GARCIA understand my current condition and have read and understand these discharge instructions. I have receiveda written copy of the plan/instructions. If I have questions, I am aware that I should contact my do ctor. 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 Digitally Signed by MAURIZIO INFANTE on 06/01/2023 10:10 AM [facility]01-15-2024 Anesthesiology Consult note Patient: CHARAN GARCIA Age: 63 years Sex: Male : 1960 Associated Diagnoses: None Author: MAURIZIO INFANTE Preoperative Information Time of last food [...] Father COPD Father Procedure history: Right ankle (23644121). Comments: 06/01/2023 8:24 EST - Lida May RN fracture right ankle with metal fixation. Colonoscopy (750406059). Social History Social & Psychosocial Habits Alcohol [...] Resp Rate 20 br/min (JUN 01 08:34) MEH652 mmHg (JUN 01 08:34) DBP75 mmHg (JUN 01 08:34) Measurements from flowsheet : Measurements 06/01/2023 8:34 EST Height 172.72 cm Admission Weight 75.0 kg [place] Body Weight 68.40 kg Admission Body Mass [...] Surgeon SN - CAt - Role Performed Consulting Systems Engineer 1 SN - CAt - Role Performed WOOL PRESSER SN - CAt - Role Performed Restaurant Greeter 06/01/2023 8:41 EST Lactated Ringers Injection Begin Bag 1,000 mL mL 06/01/2023 8:34 EST Height 172.72 cm Admission Weight 75.0 kg [place] Body Weight 68.40 kg Admission Body Mass [...] 8:33 EST IV Present Present Allergies Yes Pickling Machine Operator On Yes Consent Form Signed Yes Patient [...] Person #1 We May Share PRIMO abreu. [phone] Designated Person #1 Relationship Spouse Privacy Restrictions [...] evident Teaching Method Explanation Preferred Spoken Language Sao Tomean Preferred Written Language S[place]an Teaching Evaluation No further teaching needed Safety Brochure Information Reviewed Unable to complete [facility] Video Viewed No Information Given by Patient Patient's Current Physicians dr frederick (pramod) Discharge To, Anticipated Home with family care [...] Day Patient History . Assessment and Plan [place] Society of Anesthesiologists (ASA) physical status classification: Class III. Anesthetic Preoperative Plan Anesthetic technique: MAC. Informed consent: signed by patient. 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 GERD ? Patient is on yxhk-ret-vmauqqh PPI prescribed Protonix in the hospital 5.. 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 N.B. : The above Results [...] PT GETS OTC EYE ALLERGY DROPS FROM [facility] TO USE NEEDED Discontinued naproxen 500 MG tablet 500 mg PO BID PRN (Reason: pain) Referrals / Follow Up: Care Physician,No Primary [Primary Care Provider] - Within 2 Weeks Disposition Disposition (needs filled in before D/C Order can be placed): Home, Self Care Charges/Coding Visit Charges Inpatient E&M: 25959 Disch Hosp >30min 11/28/22 1053 <Electronically signed by Charan Martinez MD> Cosigner Signature (if applicable): CC: Dr. Charan Martinez MD; No Primary Care Physician~ Signed [facility] Work Phone: 1(572) 715-699107-14-2023 Progress note Author Charan Martinez [facility] November 28, 2022 10:45am Note Date/Time November 28, 2022 8:14 am [facility] Medical Records Department [address] [place] [address] Progress Note - Hospitalist 11/28/22811 MR#: [id number] Acct: [id number] Name: CHARAN GARCIA Rep #:[id number] : 1960 62 From: Charan Martinez MD PCP: Care Physician,No Primary Status :ADM IN Location: [place] [address] Reason for Visit Reason for Visit: Diagnoses [...] 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 N.B. : The above Results were Read Back by Ronnie Walker MD to Sophy Reza RN, and understanding confirmed on 11/27/2022 11:30:47 (ET). 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 GERD ? Patient is on lbkk-nki-vknxmzt PPI prescribed Protonix in the hospital 5.. Tobacco dependence - Counseled on cessation, offered nicotine patch for tobacco cravings 6. DVT prophylaxis - On enoxaparin Time spent in the patient's overall evaluation,decision-making process, review of diagnostic data, adjustment of management, discussion with other providers, nursing nursing and ancillary staff involved in patient's care documentation, 35minutes Charges/Coding Visit Charges Inpatient E&M: 32256 Subs Hosp L2 11/28/22 1045 <Electronically signed by Charan Martinez MD> Cosigner Signature (if applicable): CC: ~ Signed [facility] Work Phone: 1(213) 349-164507-13-2023 Progress note Author Charan Martinez [facility] November 27, 2022 12:11pm Note Date/Time November 27, 2022 8:13 am [facility] Medical Records Department [address] [place] [address] Progress Note - Hospitalist 11/27/22811 MR#: [id number] Acct: [id number] Name: CHARAN GARCIA Rep #:[id number] : 1960 62 From: Charan Martinez MD PCP: Care Physician,No Primary Status :ADM LAURI Location: [place] [address] Reason for Visit Reason for Visit: Diagnoses [...] 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 MRI of the cervical spine [...] and Output for Last 24 Hours 11/25/22 11/26/22 11/27/22 23:59 23:59 23:59 Intake Total 300 / [...] % (Auto) 66.7, Lymph % (Auto) 21.5, [place] % (Auto) 8.3, Eos % (Auto) 2.6, Baso % (Auto) 0.7, Absolute Neuts (auto) 4.0, Absolute Lymphs (auto) 1.30, Nucleated RBC % 0, Platelet Estimate ADEQUATE,PT Cancelled, INR Cancelled, APTT Cancelled, Sodium 140, Potassium 3.5, Ciogdbcq516 H, Carbon Dioxide 24.0, Anion Gap 5, [...] % (Auto) 66.4, Lymph % (Auto) 20.8, [place]% (Auto) 8.0, Eos % (Auto) 3.7, Baso [...] Signed: Lo Bishop MD at 13:21 EDT Reading Location ID and State: [facility] / [place] Tel , Service support , Physical Exam Narrative GENERAL: cooperative HEENT: [...] 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 GERD ? Patient is on dnpf-twm-obrfbkz PPI prescribed Protonix in the hospital 5.. Tobacco dependence - Counseled on cessation, offered nicotine patch for tobacco cravings 6. DVT prophylaxis - On enoxaparin Time spent in the patient's overall evaluation,decision-making process, review of diagnostic data, adjustment of management, discussion with other providers, nursing nursing and ancillary staff involved in patient's care documentation, 50minutes Charges/Coding Visit Charges Inpatient E&M: 93856 [facility] Hosp 11/27/22 1211 <Electronically signed by Charan Martinez MD> Cosigner Signature (if applicable): CC: ~ Signed [facility] Work Phone: 1(738) 227-200507-12-2023 Discharge summary Author Noé Vasquez [facility] November 26, 2022 4:20pm Note Date/Time November 26, 2022 4:18 pm [facility] Medical Records Department [address] [place] [address] Emergency Department Summary 11/26/22 MR#: [id number] Acct: [id number] Name: CHARAN GARCIA Rep #:[id number] : 1960 62 From: Noé Vasquez DO PCP: Care Physician,No Primary Status :ADM LAURI Location: [address] History of Present Illness Chief Complaint: [...] at home with family. Patient's and daughter athcheryl. Patient takes no medications daily. Patient has [...] nausea or vomiting, no other acute complaints. [facility] Medical History GERD (gastroesophageal reflux disease) [...] NIH 1, patient has slight difficulty with femzjx-wh-sqol testing on the left and also slight [...] % (Auto) 66.7 Lymph % (Auto) 21.5 [place] % (Auto) 8.3 Eos % (Auto) 2.6 [...] Tobacco abuse Disposition Disposition: Acute Care [facility] Discharge Date/Time: 11/26/22 15:58 What to do if you have Problems For any increased pain, shortness of breath, bleeding, nausea or vomiting, chestpain, or any unexpected problems, contact your Primary Care Provider. Call [facility] ([phone]) or report to the closest Emergency Room. Call 911 if necessary. 11/26/22 1620 <Electronically signed by Noé Vasquez DO> Cosigner Signature (if applicable): CC: No Primary Care Physician ~ Signed [facility] Work Phone: 1(432) 639-562407-12-2023 History and physical note Author Charan [facility]berna [facility] November 26, 2022 4:09pm Note Date/Time November 26, 2022 3:26 pm [facility] Medical Records Department [address] [place] [address] H&P Exam - Hospitalist 11/26/22 1525 MR#: [id number] Acct: [id number] Name: CHARAN GARCIA Rep #:[id number] : 1960 62 From: Charan Martinez MD PCP: Care Physician,No Primary Status :ADM LAURI Location: [place] [address]- 1 HPI - General General Date of Admission: [...] to a monitored bed for further manner [facility] Medical History GERD (gastroesophageal reflux disease) Home [...] % (Auto) 66.7, Lymph % (Auto) 21.5, [place] % (Auto) 8.3, Eos % (Auto) 2.6, Baso % (Auto) 0.7, Absolute Neuts (auto) 4.0, Absolute Lymphs (auto) 1.30, Nucleated RBC % 0, Platelet Estimate ADEQUATE,PT Cancelled, INR Cancelled, APTT Cancelled, Sodium 140, Potassium 3.5, Smfcvhei940 H, Carbon Dioxide 24.0, Anion Gap 5, [...] monitoring 3. GERD ? Patient is on guez-uxs-ruktrci PPI prescribed Protonix in the hospital 4. [...] 18 minutes. Charges/Coding Visit Charges Inpatient E&M: 81663 Init Hosp L3 Procedures Hospitalists Procedures: 29279 Advncd Care Plan 30 Min 11/26/22 1609 <Electronically signed by Charan Martinez MD> Cosigner Signature (if applicable): CC: Dr. Charan Martinez MD; No Primary Care Physician~ Signed [facility] Work Phone: Consult note Author Allison Santos [facility] November 28, 2022 11:58am Note Date/Time November 28, 2022 11:5 5am [facility] Medical Records Department [address] [place] [address] Counseling Note - Pharmacy 11/28/22 1154 MR#: [id number] Acct: [id number] Name: CHARAN GARCIA Rep #:[id number] : 1960 62 From: Allison Santos PCP: Care Physician,No Primary Status :ADM IN Y Location: [place] [address] Pharmacy [facility] Service has performed discharge medication reconciliation [...] Signature (if applicable): Date CC: ~ Signed [facility] Work Phone: Evaluation + Plan note No data available for this section [facility] Evaluation note* Diagnosis Onset Date Resolution Status Left-sided weakness acute TIA (transient ischemic attack) acute Tobacco abuse acute [facility] Work Phone: Evaluation note* Diagnosis Onset Date Resolution Status Tobacco abuse acute Left-sided weakness resolved TIA (transient ischemic attack) resolved [facility] Work Phone: Evaluation noteNo assessment information available [facility] Work Phone: Reason for referral (narrative)No reason for [facility] Work Phone: Chief Complaint and Reason for [...] Admit Date Gastroesophageal reflux disease July 1:42pm Chief Complaint Admit Date WRIST PAIN WITH NUMBNESS January 17, 2025 2:25pm CVA January 18, 2025 6:35pm Reason for Visit Admit Date Acute CVA (cerebrovascular accident) Sep tember 2024 6:35pm Chief Complaint Admit Date WRIST PAIN WITH NUMBNESS January 17, 2025 2:25pm CVA January 18, 2025 6:35pm Cerebrovascular accident January 19, 2025 4:02pm Advance Directives No Advanced Directives Records Found Advance Directive Response Recorded Date/ Time Living Will No November 26, 2022 4:06pm Power of Fund Accounting Manager No November 26 4:06pm Advance Directive Response Recorded Date/ Time Living Will No June 12 8:26pm Do you have a Healthcare Power of Fund Accounting Manager? No June 12, 2024 8:26pm Advance Directive Response Recorded Date/ Time Do you have a Healthcare Power of Fund Accounting Manager? No January 18, 2025 5:49pm Advance Directive Response Recorded Date/ Time Do you have a Healthcare Power of Fund Accounting Manager? No January 18, 2025 7:05pm Summary Purpose Family History Family Member Condition Father Cancer Father Mother Cancer Mother Other Family Member No known family hist ory No Family History Records Found Additional Source [...] June 12, 2024 Dr. Elvis Gonzalez , DO Attending Provider Activ e Start: June 12, 2024 End: June 12, 2024 Dr. Elvis Gonzalez , DO Emergency Provider Activ e Start: June 12, 2024 End: June 12, 2024 Team Status: Inactive Member Role Status Nestor Arellano MD Primary Care Provider Active St art: July 20, 2024 End: July 20, 2024 Anne Arellano MD Referring Provider Active Start : July 20, 2024 End: July 20, 2024 Dr. Oliver Dang DO Attending Provider Active Start: July 20, 2024 End: July 20, 2024 Team Status: Inactive Member Role Status Nestor Arellano MD Primary Care Provider Active St art: August 23, 2024 End: August 23, 2024 Dr. Oliver Dang DO Attending Provider Active Start: August 23, 2024 End: August 23, 2024 Dr. Oliver Dang DO Referring Provider Active Start: August 23, 2024 End: August 23, 2024 Team Status: Inactive Member Role Status Nestor Arellano MD Primary Care Provider Active St art: August 26, 2024 End: August 26, 2024 [facility] ENERGY TRADER, ENERGY TRADER-C Attending Provider Active Start: August 26, 2024 End: August 26, 2024 Team Status: Active Member Role/Relationship Status Nestor Arellano MD Primary Care Provider Active Team Status: Active Member Role/Relationship Status Nestor Arellano MD Primary Care Provider Active St art: January 17, 2025 Anne Arellano MD Attending Provider Active Start : January 17, 2025 Anne Arellano MD Referring Provider Active Start : January 17, 2025 Team Status: Active Member Role/Relationship Status Nestor Arellano MD Primary Care Provider Active St art: January 18, 2025 Dr. Jorge Villareal DO Emergency Provider Active Start: January 18, 2025 Dr. Yris Rao MD Admit Provider Active Star t: January 18, 2025 Dr. Yris Rao MD Attending Provider Active Start: January 18, 2025 Team Status: Inactive Member Role/Relationship Status Nestor Arellano MD Primary Care Provider Active St art: January 18, 2025 End: January 19, 2025 Dr. Jorge Villareal DO Emergency Provider Active Start: January 18, 2025 End: January 19, 2025 Dr. Yris Rao MD Admit Provider Active Star t: January 18, 2025 End: January 19, 2025 Dr. Yris Rao MD Other Provider Active Star t: January 18, 2025 End: January 19, 2025 Marcos Rogers MD Other Provider Active Start: 2024 End: January 19, 2025 Dr. Abeba Velasco MD Other Provider Active Start: January 18, 2025 End: January 19, 2025 Rosa M Tiwari MD Other Provider Active Start : January 18, 2025 End: January 19, 2025 Dr. Shakira Dunn , Other Provider Active St art: January 18, 2025 End: January 19, 2025 Dr. Jane Sidhu MD Other Provider Active Start: January 18, 2025 End: January 19, 2025 Dr. Damian Mullen MD Other Provider Active Sta rt: January 18, 2025 End: January 19, 2025 Dr. Rachel Stone MD Other Provider Active Start : January 18, 2025 End: January 19, 2025 Dr. Reno Hernandez MD Other Provider Active Start: January 18, 2025 End: January 19, 2025 Dr. João Umanzor MD Other Provider Active Start : January 18, 2025 End: January 19, 2025 Dr. Bhaskar Mendez MD Other Provider Active Sta rt: January 18, 2025 End: January 19, 2025 Dr. Nel Cadet , Other Provider Active St art: January 18, 2025 End: January 19, 2025 Cheyanne Thompson MD Other Provider Active Start : January 18, 2025 End: January 19, 2025 Dr. Jagjit Damon MD Other Provider Active St art: January 18, 2025 End: January 19, 2025 Dr. Madie Juarez MD Other Provider Active Start : January 18, 2025 End: January 19, 2025 Dr. Laura Serrano MD Other Provider Active Sta rt: January 18, 2025 End: January 19, 2025 Dr. Greta Ward MD Other Provider Active Start: January 18, 2025 End: January 19, 2025 Dr. Aaron Maloney MD Other Provider Active St art: January 18, 2025 End: January 19, 2025 Dr. Aliza Real MD Other Provider Active Star t: January 18, 2025 End: January 19, 2025 Dr. Xander Beatty MD Other Provider Active St art: January 18, 2025 End: January 19, 2025 Dr. Bhavana Reyes MD Other Provider Active Start: January 18, 2025 End: January 19, 2025 Obi Zazueta MD Other Provider Active Start: January 18, 2025 End: January 19, 2025 Dr. Marky Lund DO Attending Provider Active Start: January 18, 2025 End: January 19, 2025 Dr. Marky Lund DO Other Provider Active S tart: January 18, 2025 Team Status: Active Member Role/Relationship Status Nestor Arellano MD Primary Care Provider Active St art: January 19, 2025 Dr. Rafia Reyes MD Attending Provider Activ e Start: January 19, 2025 Team Status: Inactive Member Role/Relationship Status Nestor Arellano MD Primary Care Provider Active St art: January 17, 2025 End: January 17, 2025 Anne Arellano MD Attending Provider Active Start : January 17, 2025 End: January 17, 2025 Anne Arellano MD Referring Provider Active Start : January 17, 2025 End: January 17, 2025 Team Status: Active Member Role/Relationship Status Nestor Arellano MD Primary Care Provider Active St art: January 19, 2025 Dr. Jorge Villareal DO Emergency Provider Active Start: January 19, 2025 Dr. Yris Rao MD Admit Provider Active Star t: January 19, 2025 Dr. Yris Rao MD Other Provider Active Star t: January 19, 2025 Marcos Roegrs MD Other Provider Active Start: [facility]2024 Dr. Abeba Velasco MD Other Provider Active Start: January 19, 2025 Rosa M Tiwari MD Other Provider Active Start : January 19, 2025 Dr. Shakira Dunn DO Other Provider Active St art: January 19, 2025 Dr. Jane Sidhu MD Other Provider Active Start: January 19, 2025 Dr. Damian Mullen MD Other Provider Active Sta rt: January 19, 2025 Dr. Rachel Stone MD Other Provider Active Start : January 19, 2025 Dr. Reno Hernandez MD Other Provider Active Start: January 19, 2025 Dr. João Umanzor MD Other Provider Active Start : January 19, 2025 Dr. Bhaskar Mendez MD Other Provider Active Sta rt: January 19, 2025 Dr. Nel Cadet DO Other Provider Active St art: January 19, 2025 Cheyanne Thompson MD Other Provider Active Start : January 19, 2025 Dr. Jagjit Damon MD Other Provider Active St art: January 19, 2025 Dr. Madie Juarez MD Other Provider Active Start : January 19, 2025 Dr. Laura Serrano MD Other Provider Active Sta rt: January 19, 2025 Dr. Greta Ward MD Other Provider Active Start: January 19, 2025 Dr. Aaron Maloney MD Other Provider Active St art: January 19, 2025 Dr. Aliza Real MD Other Provider Active Star t: January 19, 2025 Dr. Xander Beatty MD Other Provider Active St art: January 19, 2025 Dr. Bhavana Reyes MD Other Provider Active Start: January 19, 2025 Obi Zazueta MD Other Provider Active Start: January 19, 2025 Dr. Marky Lund DO Attending Provider Active Start: January 19, 2025 Dr. Marky Lund DO Other Provider Active S tart: January 19, 2025 (unrecognized sect ion and content) No Status Records FoundNo Status Records Found INFORMATION SOURCE (unrecogn ized section and content) DATE CREATED AUTHOR 06/08/2023 [facility] [place] ([place]) DATE CREATED AUTHOR AUTHOR'S ORGANIZ ATION 03/27/2025 [facility] Goals (unrecognized section and content) Goals may be documented in a n alternate section REASON FOR VISIT (unrecogniz ed section and content) left hand numbness / tinglin g, New - 1st visit with practice FOR RECORDS PERTAINING TO PATIENTS WHO ARE [...] BE BASED ON THE PRIMARY CLINICAL RECORDS. [employer] provides no warranty or guarantee of the accuracy or completeness of information in this document.
--- NOTE | 2025-04-14 10:05 | CT_ITS ---
PROCEDURE: CHEST WITH CONTRAST 04/14/2025 REASON FOR EXAM: LUNG NODULE; ABNORMAL LOW DOSE CT TECHNIQUE: Procedure Code: CTCHW Modality: CT Procedure: CHEST WITH CONTRAST Coronal and Sagittal reconstruction series were provided. CONTRAST: Isovue 370 VOLUME: 99 mL One or more dose reduction techniques were used (e.g., Automated exposure control, adjustment of the mA and/or kV according to patient size, use of iterative reconstruction technique). RADIATION DOSE SUMMARY: CTDlvol: 13.3 MGy DLP: 257.21 MGycm COMPARISON: 03/24/2025 FINDINGS: Stable appearing right lower lung lobe superior segment thick-walled air-filled cavitary lesion measures 4.4 x 2.7 cm along its maximum dimensions with related anterior aspect solid component or projection measures 9-10 mm. Redemonstration of the bilateral pulmonary centrilobular and paraseptal emphysematous changes. Stable appearing few scattered small solid pulmonary nodules measure up to 3 mm in diameter as seen in the right lower lobe posterior segment. There is no focal infiltrate or consolidation. There are no pleural effusions. No pneumothorax is seen. No mediastinal or hilar adenopathy is identified. The thyroid is unremarkable. The central airways are patent. The chest wall appears unremarkable. No axillary adenopathy is identified. The thoracic aorta is not dilated. The heart and pulmonary arteries are of normal size and configuration. There are coronary artery calcifications. No pericardial effusion is identified. No aggressive-appearing osseous lesions are identified. The included abdominal cuts show newly seen diffuse gastric wall thickening suggesting gastritis, recommend clinical correlation. CT/Chest WITH Contrast IMPRESSION: No acute abnormalities detected. Stable appearing right lower lung lobe air-filled cavitary lesion, neoplastic p rocess cannot be totally ruled out. Recommend further workup by PET/CT or tissue sampling. Redemonstration of the bilateral pulmonary centrilobular and paraseptal emphyse matous changes. Newly seen diffuse gastric wall thickening suggesting gastritis, recommend clin ical correlation. Stable rest of the study findings. Reading Location: [place] [id number]
== END | disposition home or self-care (01) ==
LOC: CT 09:57
PROVIDERS: PCP Family Medicine
DX: R91.1 Solitary pulmonary nodule (principal)
CPT/HCPCS: 71260; Q9967

== ENCOUNTER → 2025-04-28 | Outpatient (CLI) | payer MEDICARE, SELFPAY ==
[2025-04-28 12:53] LABS: PSA,Total - Annual Screen 4.62 ng/mL (0.02-4.00)
[2025-05-02 20:08] LABS: QNTFERON TB Mitogen Value > 10.00 IU/mL (.); QNTFERON TB Nil Value 0.02 IU/mL (.); QNTFERON TB1+ Ag Value 0.12 IU/mL (.); QNTFERON TB2+ Ag Value 0.06 IU/mL (.); QNTIFERON TB Positive Criteria Negative (Negative)
== END | disposition home or self-care (01) ==
PROVIDERS: PCP Family Medicine; Referring Provider Family Medicine; Visit Provider Family Medicine
DX: Z12.5 Encounter for screening for malignant neoplasm of prostate (principal)
CPT/HCPCS: 36415; 84153; 86480; G0103

== ENCOUNTER → 2025-05-12 | Outpatient (CLI) | payer MEDICARE, SELFPAY ==
--- OUTSIDE RECORDS SUMMARY | 2025-05-12 10:15 | XMS RPT_ITS | CCD ---
Author Organization [facility] Care Team Providers Care Film Recordist Name Role Phone Care Physician, No Primary Primary Care Provider Unavailable Pay, Dr. Umanzor Emergency Provider Michelle, Dr. Ly Admit Provider Unavailable Michelle, Dr. Ly Attending Provider Unavailable Dr. Charan Martinez Other Provider Unavailable Dr. Dolores Bustillos Attending Provider MEHRAN NEGRON, DR UMAÑA Attending Unavailabl e Anne Arellano MD Primary Care Provider [phone] Dr. Elvis Gonzalez DO Attending Provider Dr. Elvis Gonzalez DO Emergency Provider Anne Arellano MD Referring Provider Dr. Oliver Dang DO Attending Provider Dr. Oliver Dang DO Referring Provider orr SOLAR PHOTOVOLTAIC CREW LEAD-C, Tae Attending Provider Anne Arellano MD Primary [...] Provider Haider NEGRON, Dr. Walker Other Provider [phone] Addie NEGRON, Dr. Abrams Other Provider Rogerio NEGRON, Dr. Terrell Other Provider Eric NEGRON, Dr. Bateman Other Provider Unavailable Marbin NEGRON, Yousef Other Provider Unavailable Dr. Marky Lund DO Attending Provider Amy NEGRON, Dr. Morataya Attending Provider Dr. Marky Lund DO Other Provider [phone] Tania Winchester MD Unavailable NONE, NONE Unavailable Unavailable Anne Arellano MD Unavailable Adan, Chalon Primary Care Unavailable Adan Chaljuan a Referring Unavailable Anne Arellano Attending Unavailable Elvis Gonzalez Attending Unavailabl e Adan, Chalon Primary Care Unavailable Yris Rao Admitting Unavailable Adan, Chalon Primary Care Unavailable Marky Lund Attending Unavailable Glidden, Marcos Consulting Unavailable Adeli, Amir Consulting Unavailable [...] Unavailable Adan, Chalon Primary Care Unavailable McMorrow SOLAR PHOTOVOLTAIC CREW LEAD, Tae Referring Unavailable McMorrow SOLAR PHOTOVOLTAIC CREW LEAD, Tae Attending Unavailable Marky Lund Referring Unavailable [...] Rami Consulting Unavailable Rogerio, Xander Consulting Unavailable Reic, Bhavana Consulting Unavailable Hannawi, Yousef Consulting Unavailable Yris Rao Consulting Unavailable Marky Lund Consulting Unavailable Yris Rao Attending Unavailable FriendOliver Referring Unavailable FriendOliver Attending Unavailable Anne Arellano Primary Care Unavailable Anne Arellano Primary Care Unavailable McMorrow Tae ABARCA Attending Unavailable Allergies Allergy Classification Reported Allergen(s) Allergy Type Date of Onset Reaction(s) Facility (1 source) House dust mite Allergy to substance (disorder) [facility] (1 source) Mold Extract Drug Allergy 5 [facility] (1 source) PLAN POLLENS Allergy to substance (disorder) 5 [facility] Medications Current Medications Medication Drug Class(es) Dates Sig (Normalized) Sig (Original) Adult Low Dose Aspirin 81 mg tablet,delayed release (1 source) take 1 tablet by mouth once daily as needed Adult Low Dose Aspirin 81 mg tablet,delayed release 1 tablet by mouth once a day as needed as directed active Raegan Alexandre LPN [facility] atorvastatin 80 mg oral tablet (11 sources) [...] day In winter active Raegan Alexandre LPN [facility] clopidogrel 75 mg oral tablet (16 sources) [...] Start: 11-26-2022 take 1 capsule by mo [facility] every twelve hours Esomeprazole Magnesium 20 mg capsule,delayed release(DR/EC) Active 20 mg PO Q12H November 26, 2022 12:00am gerd Start: 11-26-2022 take 2 capsules by [facility] every twelve hours Esomeprazole Magnesium 20 mg capsule,delayed release(DR/EC) Active 40 mg PO Q12H November 26, 2022 12:00am Start: 11-26-2022 take 20 mg by mouth once daily Esomeprazole Magnesium Active 20 MG PO DAILY November 26, 2022 12:00am take 1 capsule by mo [facility] twice daily esomeprazole magnesium 20 mg capsule,delayed release 1 capsule by mouth twice a day active Raegan Alexandre LPN [facility] hydroCHLOROthiazide 25 mg oral tablet (3 sources) [...] 11:46am Start: 11-28-2022 [facility] Losartan-Hydrochlorothiazide Active 1 TA [...] skin once a day active Raegan Alexandre MANAGER OPERATIONS [facility] predniSONE 20 mg oral tablet (3 sources) [...] PT GETS OTC EYE ALLERGY DROPS FROM [facility] TO USE NEEDED Start: 11-26-2022 take 1 drop(s) into the eye(s) once daily as needed Olopatadine (Eye Allergy Itch Relief) 0.2 % drops Active 1 DRP EACH EYE DAILY November 26, 2022 12:00am PT GETS OTC EYE ALLERGY DROPS FROM [facility] TO USE NEEDED raNITIdine 75 mg [...] Screeningon 03-24-[address] Lung Screening [facility] [address] [place] [address] Lung Screening MR#: [id number] Acct: [id number] Name: CHARAN GARCIA Rep #: [id number] : 1960 M 65 From: Hermann Vazquez DO PCP: Dr. Anne Arellano MD Status: REG CLI Study: Low Dose CT Lung Screening Date of Exam: 03/24 Exam# [id number] Ordering Dr: Tae Gardiner NP SOLAR PHOTOVOLTAIC CREW LEAD -C PROCEDURE: LOW DOSE CT LUNG SCREENING 03/24/2025 REASON FOR EXAM: TOBACCO ABUSE TECHNIQUE: Procedure Code: CTLUNGSCREEN Modality: CT Procedure: LOW DOSE CT LUNG SCREENING Coronal and Sagittal reconstruction series were provided. One or more dose reduction techniques were used (e.g., Automated exposure control, adjustment of the mA and/or kV according to patient size, use of iterative reconstruction technique). REFERENCE LINK: [email or web address] Lung-RADS RADIATION DOSE SUMMARY: CTDlvol: 3.02 mGy [...] Significant Findings: Emphysematous disease. In compliance with [place] State Law Act 112, an automated letter has been sent to this patient notifying them that there are findings on this exam that warrant further discussion with their healthcare provider. Reading Location: [id number] CC: Tae ABARCA SOLAR PHOTOVOLTAIC CREW LEAD-C McMorrow; Dr. Anne Arellano MD Company Driver: Signed Normal [facility] OT D/C Summaryon 03-08-2025 OT D/C Summary [facility] Occupational Therapy [facility] [address] [place] [address] [address] [place] [address] / REHABILITATION SERVICES DISCHARGE SUMMARY MR#: [id number] Acct: [id number] Name: CHARAN GARCIA Rep #: [id number] : 1960 65 From: Karolina KEMP/Jerry, T Referring Dr.: Dr. Marky Lund DO [...] Improvement % Improvement: 40 Objective Objective/Function: left weaver hand: 60# right weaver hand: 95# left lateral: 4# right lateral: 16# [...] Pt will demo a increase in left weaver hand strength by 15# or greater to return [...] please fell free to call me at [phone]. Thank you for the referral of this patient. Sincerely, Karolina Nye, OTR/L, CHT 03/08/25 3466 CC: Dr. Anne Arellano MD; Dr. Marky Lund, DO MK Signed Normal [facility] Relevant diagnostic tests/la boratory data Narrativeon 02-28-2025 Fall risk assessment no ELIZABETH [employer] Work Phone: MEDS REVIEW Documentation of current medications (procedure) [employer] Work Phone: MEDS REVIEWD Medications reviewed with changes [employer] Work Phone: Relevant diagnostic tests/la boratory data Narrativeon 10-13-2025 MEDS REVIEWD Medications reviewed with changes [employer]. Work Phone: OT General Evaluationon 01-16 OT General Evaluation [facility] Occupational Therapy [facility] [address] [place] [address] / REHABILITATION SERVICES INITIAL EVALUATION MR#: [id number] Acct: [id number] Name: CHARAN GARCIA Rep #: [id number] : 1960 64 From: Karolina KEMP/SRINIVAS Wooten Referring Dr.: Dr. Marky Lund DO Status: REG RCR Insurance: [employer] MEDICARE Eval Date: SELF PAY INSURANCE Patient's Visit Information Visit Information Visit Information: CHARAN GARCIA is a 64 year old M, referred to Occupational Therapy by Dr. Marky Lund DO, with a diagnosis of CVA. Date of Evaluation: 02/02/25 Occupational Therapist: JUSTO Gonzalez/Jerry, SRINIVAS Subjective Subjective: This 64 year old [...] left 24# triceps right 31# left 24# Paleobotanist: right 85# left 35# Lateral Pinch: right [...] Pt will demo a increase in left weaver hand strength by 15# or greater to return [...] to be FAXED BACK to us at [phone] for Medicare purposes. Please let me know if there are questions or concerns regarding this plan of care. Physician Signature: Date:__ 02/02/25 1537 CC: Dr. Anne Arellano MD; Dr. Marky Lund DO MK Signed For Medicare only, by signing this I certify the plan of care. Physicians Signature Date Normal [facility] Absolute lymphocyte countOrd ered By: Yris Rao on 01-19-2025 Lymphocytes Auto (Unsp spec) [#/Vol] 1.41 10*3/uL 0.83-4.51 [facility] Absolute neutrophil countOrd ered By: Yris Rao on 01-19-2025 Neutrophils (Bld) [#/Vol] 4.9 10*3/uL 2.0-7.7 [facility] Anion gap in Serum or Plasma Ordered By: Yris Rao on 01-19-2025 Anion gap [Moles/Vol] 11 mmol/L 5 [facility] Automated lymphocyte count a s percentage of total leukocytesOrdered By: Yris Rao on 01-19-2025 Lymphocytes/100 WBC Auto (Unsp spec) 19.7 % [facility] BUN/creatinine ratioOrdered By: Yris Rao on 01-19-2025 Urea nitrogen/Creatinine [Mass ratio] 19.1 mg/mg 03-06 [facility] Basic Metabolic Profile (BMP )on 01-19-2025 BUN/CRE 19.1 RATIO Normal 03-06 [facility] Comment on above: Order Comment: Comme nts: NPO at NM prior to lipid panel Performed By: #### L 500.4100, L501.9520, L501.9985, L100.0100, L500.2500, L501.5200 ####[facility] [address] [place], [address] Calcium [Mass/Vol] 8.8 mg/dL Normal 7.6-11.0 [facility] Comment on above: Order Comment: Comme nts: NPO at NM prior to lipid panel Performed By: #### L 500.4100, L501.9520, L501.9985, L100.0100, L500.2500, L501.5200 ####[facility] [address] [place], [address] Chloride [Moles/Vol] 105 mmol/L Normal 98-108 [facility] Comment on above: Order Comment: Comme nts: NPO at NM prior to lipid panel Performed By: #### L 500.4100, L501.9520, L501.9985, L100.0100, L500.2500, L501.5200 ####[facility] [address] [place], [address] CO2 [Moles/Vol] 23.3 mmol/L Normal 21.0-32.0 [facility] Comment on above: Order Comment: Comme nts: NPO at NM prior to lipid panel Performed By: #### L 500.4100, L501.9520, L501.9985, L100.0100, L500.2500, L501.5200 ####[facility] [address] [place], [address] Creatinine [Mass/Vol] 0.64 mg/dL Low 0.70-1.20 [facility] Comment on above: Order Comment: Comme nts: NPO at [place] prior to lipid panel Performed By: #### L 500.4100, L501.9520, L501.9985, L100.0100, L500.2500, L501.5200 ####[facility] [address] [place], [address] ECRCL 86.98 ml/min Normal 50-250 [facility] Comment on above: Order Comment: Comme nts: NPO at [place] prior to lipid panel Performed By: #### L 500.4100, L501.9520, L501.9985, L100.0100, L500.2500, L501.5200 ####[facility] [address] [place] [place], [address] GAP 11 Normal 5-15 [facility] Comment on above: Order Comment: Comme nts: NPO at [place] prior to lipid panel Performed By: #### L 500.4100, L501.9520, L501.9985, L100.0100, L500.2500, L501.5200 ####[facility] [address] [place], [address] GFR/1.73 sq M.predicted among non-blacks MDRD (S/P/Bld) [Vol rate/Area] 104 mL/min/{1.73_m2} Normal >60 [facility] Comment on above: Order Comment: Comme nts: NPO at [place] prior to lipid panel Result Comment: mL/m in/1.73m2 CKD-EPI Creatinine Equation (2020) Performed By: #### L 500.4100, L501.9520, L501.9985, L100.0100, L500.2500, L501.5200 ####[facility] [address] [place], [address] Glucose [Mass/Vol] 84 mg/dL Normal 70-99 [facility] Comment on above: Order Comment: Comme nts: NPO at [place] prior to lipid panel Performed By: #### L 500.4100, L501.9520, L501.9985, L100.0100, L500.2500, L501.5200 ####[facility] [address] [place], [address] Potassium [Moles/Vol] 3.5 mmol/L Normal 3.3-5.1 [facility] Comment on above: Order Comment: Comme nts: NPO at NM prior to lipid panel Performed By: #### L 500.4100, L501.9520, L501.9985, L100.0100, L500.2500, L501.5200 ####[facility] [address] [place], [address] Sodium [Moles/Vol] 140 mmol/L Normal 133-145 [facility] Comment on above: Order Comment: Comme nts: NPO at NM prior to lipid panel Performed By: #### L 500.4100, L501.9520, L501.9985, L100.0100, L500.2500, L501.5200 ####[facility] [address] [place], [address] Urea nitrogen [Mass/Vol] 12 mg/dL Normal 4-19 [facility] Comment on above: Order Comment: Comme nts: NPO at NM prior to lipid panel Performed By: #### L 500.4100, L501.9520, L501.9985, L100.0100, L500.2500, L501.5200 ####[facility] [address] [place], [address] Basophil percentageOrdered B y: Yris Rao on 01-19-2025 Basophils/100 WBC (Bld) 0.6 % 0-1 [facility] Brain without Contraston Brain without Contrast [facility] [address] [place] [address] Brain without Contrast MR#: [id number] Acct: [id number] Name: CHARAN GARCIA Rep #: [id number] : 1960 M 64 From: Todd Santos MD PCP: Dr. Anne Arellano MD Status: ADM IN Study: Brain without Contrast Date of Exam: 01/19/25 Exam# [id number] Ordering Dr: Yris Rao MD PROCEDURE: BRAIN [...] thromboembolic process. See above description. Reading Location: [id number] CC: Dr. Anne Arellano MD; Dr. Yris Rao MD Company Driver: Signed Normal [facility] CBC W/Diff, Automatedon 09-0 Absolute Lymph 1.41 X10 3/uL Normal 0.83-4.51 [facility] Comment on above: Performed By: #### L 500.4100, L501.9520, L501.9985, L100.0100, L500.2500, L501.5200 ####[facility] [address] [place], [address] Absolute Neut 4.9 X10 3/uL Normal 2.0-7.7 [facility] Comment on above: Performed By: #### L 500.4100, L501.9520, L501.9985, L100.0100, L500.2500, L501.5200 ####[facility] [address] [place], [address] Basophils/100 WBC (Bld) 0.6 % Normal 0-1 [facility] Comment on above: Performed By: #### L 500.4100, L501.9520, L501.9985, L100.0100, L500.2500, L501.5200 ####[facility] [address] [place], [address] Eosinophils/100 WBC (Bld) 2.7 % Normal 0-5 [facility] Comment on above: Performed By: #### L 500.4100, L501.9520, L501.9985, L100.0100, L500.2500, L501.5200 ####[facility] [address] [place], [address] Erythrocyte distribution width (RBC) [Ratio] 13.4 % Normal 11.6-14.6 [facility] Comment on above: Performed By: #### L 500.4100, L501.9520, L501.9985, L100.0100, L500.2500, L501.5200 ####[facility] [address] [place], [address] Hematocrit (Bld) [Volume fraction] 41.8 % Normal 40-54 [facility] Comment on above: Performed By: #### L 500.4100, L501.9520, L501.9985, L100.0100, L500.2500, L501.5200 ####[facility] [address] [place], [address] Hemoglobin (Bld) [Mass/Vol] 14.8 g/dL Normal 13.0-16.5 [facility] Comment on above: Performed By: #### L 500.4100, L501.9520, L501.9985, L100.0100, L500.2500, L501.5200 ####[facility] [address] [place], [address] IG% 0.100 Normal 0.0-0.9 [facility] Comment on above: Result Comment: IG% - Immature Granulocytes (promyelocytes, myelocytes and metamyelocytes) > 1% indicates that a LEFT SHIFT is Present. Performed By: #### L 500.4100, L501.9520, L501.9985, L100.0100, L500.2500, L501.5200 ####[facility] [address] [place], [address] Lymphocytes/100 WBC (Bld) 19.7 % Normal 19-41 [facility] Comment on above: Performed By: #### L 500.4100, L501.9520, L501.9985, L100.0100, L500.2500, L501.5200 ####[facility] [address] [place], [address] MCH (RBC) [Entitic mass] 33.4 pg High 27.0-32.0 [facility] Comment on above: Performed By: #### L 500.4100, L501.9520, L501.9985, L100.0100, L500.2500, L501.5200 ####[facility] [address] [place], [address] MCHC (RBC) [Mass/Vol] 35.4 g/dL Normal 32-36 [facility] Comment on above: Performed By: #### L 500.4100, L501.9520, L501.9985, L100.0100, L500.2500, L501.5200 ####[facility] [address] [place], [address] MCV (RBC) [Entitic vol] 94.4 fL High 80-94 [facility] Comment on above: Performed By: #### L 500.4100, L501.9520, L501.9985, L100.0100, L500.2500, L501.5200 ####[facility] [address] [place], [address] Monocytes/100 WBC (Bld) 8.5 % Normal 0-10 [facility] Comment on above: Performed By: #### L 500.4100, L501.9520, L501.9985, L100.0100, L500.2500, L501.5200 ####[facility] [address] [place], [address] Neutrophils/100 WBC (Bld) 68.4 % Normal 47-70 [facility] Comment on above: Performed By: #### L 500.4100, L501.9520, L501.9985, L100.0100, L500.2500, L501.5200 ####[facility] [address] [place], [address] Nucleated RBC (Bld) [#/Vol] 0 10*3/uL Normal 0-5 [facility] Comment on above: Performed By: #### L 500.4100, L501.9520, L501.9985, L100.0100, L500.2500, L501.5200 ####[facility] [address] [place], [address] Platelet mean volume (Bld) [Entitic vol] 9.5 fL Normal 6.2-12.0 [facility] Comment on above: Performed By: #### L 500.4100, L501.9520, L501.9985, L100.0100, L500.2500, L501.5200 ####[facility] [address] [place], [address] Platelets (Bld) [#/Vol] 236 10*3/uL Normal 150-450 [facility] Comment on above: Performed By: #### L 500.4100, L501.9520, L501.9985, L100.0100, L500.2500, L501.5200 ####[facility] [address] [place], [address] RBC (Bld) [#/Vol] 4.43 10*6/uL Low 4.6-6.2 [facility] Comment on above: Performed By: #### L 500.4100, L501.9520, L501.9985, L100.0100, L500.2500, L501.5200 ####[facility] [address] [place], [address] RDW SD 46.8 fl High 35.1-43.9 [facility] Comment on above: Performed By: #### L 500.4100, L501.9520, L501.9985, L100.0100, L500.2500, L501.5200 ####[facility] [address] [place], [address] WBC (Bld) [#/Vol] 7.2 10*3/uL Normal 4.4-11.0 [facility] Comment on above: Performed By: #### L 500.4100, L501.9520, L501.9985, L100.0100, L500.2500, L501.5200 ####[facility] [address] [place], [address] Calculated very low density lipoprotein (VLDL) cholesterol measurementOrdered By: Yris Rao on 01-19-2025 Calculated very low density lipoprotein (VLDL) cholesterol measurement 18 mg/dL 5-40 [facility] Carbon dioxide, total [Moles /volume] in Central venous bloodOrdered By: Yris Rao on 01-19-2025 CO2 [Moles/Vol] 23.3 mmol/L 21.0-32.0 [facility] Chloride assayOrdered By: Rashad Rao on 01-19-2025 Chloride [Moles/Vol] 105 mmol/L 98-108 [facility] Discharge Instructionon Discharge Instruction [facility] Medical Records Department [address] [place] [address] Instructions for Home/Discharge Instructions 01/19/25 1516 MR#: [id number] Acct: [id number] Name: CHARAN GARCIA Rep #: [id number] : 1960 64 From: Marky Lund DO [...] Recorder Preventi (Routine) Timeframe: 1 Day Facility: [facility] - Location: Cardiovascular Services Ordered By: [...] Thompson DO; Obi Zazueta MD Signed Normal [facility] Echocardiogram study reportO rdered By: Rafia Reyes on 01-19-2025 Study report [facility] Cardiovascular Services [address] [place] [address] Echo Complete 01/19/25 0820 MR#: [id number] Acct: [id number] Name: GARCIACHARAN GROVES Rep #:[id number] : 1960 64 From: Rafia agrawal MD Attending Dr: Dr. Marky Lund, DO Status: ADM IN Ordering Dr: Yris Rao MD Date: Location: [facility] Sex: M C Admitted: 01/18/25 Reason For [...] ~ Date Dictated: 01/19/25819 Date Transcribed: 01/19/251423 Company Driver: Signed [facility] Work Phone: Eosinophil percentageOrdered By: Yris Rao on 01-19-2025 Eosinophils/100 WBC (Bld) 2.7 % 0-5 [facility] Erythrocyte distribution wid th ratioOrdered By: Yris Rao on 01-19-2025 Erythrocyte distribution width (RBC) [Ratio] 13.4 % 11.6-14.6 [facility] Erythrocyte distribution wid th standard deviationOrdered By: Yris Rao on 01-19-2025 Erythrocyte distribution width (RBC) [Ratio] 46.8 fl High 35.1-43.9 [facility] Glomerular filtration rate ( GFR) estimation/1.73 sq m using serum, plasma, or whole bOrdered By: Yris Rao on 01-19-2025 GFR/1.73 sq M.predicted among non-blacks MDRD (S/P/Bld) [Vol rate/Area] 104 mL/min/{1.73_m2} >60 [facility] Comment on above: mL/min/1.73m2 CKD-EP I Creatinine Equation (2020) Hematocrit Auto (Bld) [Volum e fraction]Ordered By: Yris Rao on 01-19-2025 Hematocrit (Bld) [Volume fraction] 41.8 % 40-54 [facility] Hemoglobin A1con 01-19-2025 HbA1c (Bld) [Mass fraction] 5.3 % Normal <=5.6 [facility] [facility] Comment on above: Result Comment: Norm al < 5.7 % Prediabetic 5.7 - 6.4 % Diabetic >or= 6.5 % Please note range changes. Performed By: #### L 500.4100, L501.9520, L501.9985, L100.0100, L500.2500, L501.5200 ####[facility] [address] [place], [address] Hemoglobin A1c percentageOrd ered By: Yris Rao on 01-19-2025 HbA1c (Bld) [Mass fraction] 5.3 % <5.7 [facility] Comment on above: Normal < 5.7 % Predi abetic 5.7 - 6.4 % Diabetic >or= 6.5 % Please note range changes. Hemoglobin measurementOrdere d By: Yris Rao on 01-19-2025 Hemoglobin (Bld) [Mass/Vol] 14.8 g/dL 13.0-16.5 [facility] Immature granulocytes/100 WB C Auto (Bld)Ordered By: Yris Rao on 01-19-2025 Immature granulocytes/100 WBC (Bld) 0.100 % 0.0-0.9 [facility] Comment on above: IG% - Immature Granu locytes (promyelocytes, myelocytes and metamyelocytes) > 1% indicates that a LEFT SHIFT is Present. LDL calc ser/plasOrdered By: Yris Rao on 01-19-2025 Cholesterol in LDL [Mass/Vol] 100 mg/dL [facility] Comment on above: Ryakbpxteu=900-434 m g/dL & Higher Uzpk=653 mg/dL or greaterFriedwald Equation for LDL-C Lipid Profileon 01-19-2025 CHOL:HDL 3.81 Normal [facility] Comment on above: Order Comment: Comme nts: NPO at NM prior to lipid panel Performed By: #### L 500.4100, L501.9520, L501.9985, L100.0100, L500.2500, L501.5200 ####[facility] [address] [facility] [place], [address] Cholesterol [Mass/Vol] 159 mg/dL Normal <=200 [facility] Comment on above: Order Comment: Comme nts: NPO at NM prior to lipid panel Result Comment: Chol esterol level, Desirable <200 mg/dL Borderline high cholesterol 200-239 mg/dL High cholesterol >=240 mg/dL Recommendations of the NCEP Adult Treatment Panel for the following risk-cutoff thresholds for the [place] population. Performed By: #### L 500.4100, L501.9520, L501.9985, L100.0100, L500.2500, L501.5200 ####[facility] [address] [place], [address] Cholesterol in HDL [Mass/Vol] 42 mg/dL Normal [facility] Comment on above: Order Comment: Comme nts: NPO at NM prior to lipid panel Result Comment: Anjali onal Cholesterol Education Program (NCEP) guidelines: <40 mg/dL: Low HDL-cholesterol (major risk factor for CHD) >= 60 mg/dL: High HDL-cholesterol (negative risk factor for CHD) HDL-cholesterol is affected by a number of factors, e.g. smoking, exercise, hormones, sex and age. Performed By: #### L 500.4100, L501.9520, L501.9985, L100.0100, L500.2500, L501.5200 ####[facility] [address] [place], [address] Cholesterol in LDL [Mass/Vol] 100 mg/dL Normal [facility] Comment on above: Order Comment: Comme nts: NPO at NM prior to lipid panel Result Comment: Bord ontkiz=501-443 mg/dL Higher Ejxc=854 mg/dL or greater Friedwald Equation for LDL-C Performed By: #### L 500.4100, L501.9520, L501.9985, L100.0100, L500.2500, L501.5200 ####[facility] [address] [place], [address] Cholesterol in VLDL [Mass/Vol] 18 mg/dL Normal 5-40 [facility] Comment on above: Order Comment: Comme nts: NPO at [place] prior to lipid panel Performed By: #### L 500.4100, L501.9520, L501.9985, L100.0100, L500.2500, L501.5200 ####[facility] [address] [place], [address] Triglyceride [Mass/Vol] 88 mg/dL Normal [facility] Comment on above: Order Comment: Comme nts: NPO at NM prior to lipid panel Result Comment: The drugs N-Acetylcysteine and Metamizole may falsely depress this assay. Normal range: <150 mg/dL Borderline High: 150-199 mg/dL High: 200-499 mg/dL Very High: >500 mg/dL Performed By: #### L 500.4100, L501.9520, L501.9985, L100.0100, L500.2500, L501.5200 ####[facility] [address] [place], [address] MCV (mean corpuscular volume ) determinationOrdered By: Yris Rao on 01-19-2025 MCV (RBC) [Entitic vol] 94.4 fL High 80-94 [facility] MR/CON.PCM.NEon 01-19-2025 MR/CON.PCM.NE [facility] Medical Records Department [address] [place] [address] Consultation - Neurology 01/19/25 1345 MR#: [id number] Acct: [id number] Name: CHARAN GARCIA Rep #: [id number] : 1960 64 From: Xander Beatty MD PCP: Dr. Anne Arellano MD Status:ADM IN Location: [place] [address] Assessment and Plan: Stroke Assessment/Plan CHARAN GARCIA [...] Diabetes Management - NA. A1C is ok,. halfway blood pressure control should achieve <130/80 mmHg. BP management should aim to achieve [facility] in a reasonable amount of time, [...] given his age I would recommend YANCI. Substance Addiction Coordinator on discharge. Start with 30 days. IF need to can proceed with [facility] outpatient. - Referral to sleep medicine for sleep apnea testing. Followup with PCP in 1-2 weeks, and in Neurology clinic in 6-12 weeks HPI Consult Data Date of Consult: 01/19/25 HPI Narrative HPI Narrative: CHARAN GARCIA, is a 64 M who presents [facility] Medical History (Updated 01/19/25 @ 13:06 [...] Temperature 9 (more content not included)... Normal [facility] Magnesiumon 01-19-2025 Magnesium [Mass/Vol] 2.2 mg/dL Normal 1.5-2.2 [facility] Comment on above: Order Comment: Comme nts: NPO at NM prior to lipid panel Performed By: #### L 500.4100, L501.9520, L501.9985, L100.0100, L500.2500, L501.5200 ####[facility] [address] [place], [place], [address] Magnesium measurement (mass/ volume)Ordered By: Yris Rao on 01-19-2025 Magnesium (Unsp spec) [Mass/Vol] 2.2 mg/dL 1.5-2.2 [facility] Magnetic resonance imaging r eportOrdered By: Todd Santos on 01-19-2025 Study report [facility] Imaging Services [address] [place], [place] [address] Brain without Contrast MR#: [id number] Acct: [id number] Name: CHARAN GARCIA Rep #: [id number] : 1960 M 64 From: Fritz Santos MD PCP: Dr. Anne Arellano MD Status: ADM IN Study:Brain without Contrast Date of Exam: 01/19/25 Exam# [id number] Ordering Dr: Amber Rao MD PROCEDURE: BRAIN [...] thromboembolic process. See above description. Reading Location: [id number] CC: Dr. Anne Arellano MD; Dr. Yris Rao MD ~ Company Driver: Signed [facility] Mean corpuscular hemoglobin (MCH) determinationOrdered By: Yris Rao on 01-19-2025 MCH (RBC) [Entitic mass] 33.4 pg High 27.0-32.0 [facility] Mean corpuscular hemoglobin concentration (MCHC) determinationOrdered By: Yris Rao on 01-19-2025 MCHC (RBC) [Mass/Vol] 35.4 g/dL 32-36 [facility] Mean platelet volume determi nationOrdered By: Yris Rao on 01-19-2025 Platelet mean volume (Bld) [Entitic vol] 9.5 fL 6.2-12.0 [facility] Monocyte percentageOrdered B y: Yris Rao on 01-19-2025 Monocytes/100 WBC (Bld) 8.5 % 0-10 [facility] Neutrophil percentageOrdered By: Yris Rao on 01-19-2025 Neutrophils/100 WBC (Bld) 68.4 % 47-70 [facility] Nucleated red blood cell per centageOrdered By: Yris Rao on 01-19-2025 Nucleated RBC/100 WBC (Bld) [Ratio] 0 % 0-5 [facility] Platelet countOrdered By: Rashad Rao on 01-19-2025 Platelets (Bld) [#/Vol] 236 10*3/uL 150-450 [facility] Potassium measurement (mass/ volume)Ordered By: Yris Rao on 01-19-2025 Potassium (Unsp spec) [Mass/Vol] 3.5 mmol/L 3.3-5.1 [facility] RBC Auto (Bld) [#/Vol]Ordere d By: Yris Rao on 01-19-2025 RBC (Bld) [#/Vol] 4.43 10*6/uL Low 4.6-6.2 [facility] Screening total cholesterol/ high density lipoprotein (HDL) cholesterol ratioOrdered By: Yris Rao on 01-19-2025 Cholesterol.total/Choles terol in HDL [Mass ratio] 3.81 {ratio} [facility] Serum creatinine measurement (mass/volume)Ordered By: Yris Rao on 01-19-2025 Creatinine [Mass/Vol] 0.64 mg/dL Low 0.70-1.20 [facility] Serum glucose measurement (m ass/volume)Ordered By: Yris Rao on 01-19-2025 Glucose [Mass/Vol] 84 mg/dL 70-99 [facility] Serum or plasma calcium leonardo urement (mass/volume)Ordered By: Yris Rao on 01-19-2025 Calcium [Mass/Vol] 8.8 mg/dL 7.6-11.0 [facility] Serum or plasma cholesterol in HDL measurement (mass/volume)Ordered By: Yris Rao on 01-19-2025 Cholesterol in HDL [Mass/Vol] 42 mg/dL >40 [facility] Comment on above: National Cholesterol Education Program (NCEP) guidelines:<40 mg/dL: Low HDL-cholesterol (major risk factor for CHD)>= 60 mg/dL: High HDL-cholesterol (negative risk factor for CHD)HDL-cholesterol is affected by a number of factors, e.g. smoking, exercise, hormones, sex and age. Serum or plasma cholesterol measurement (mass/volume)Ordered By: Yris Rao on 01-19-2025 Cholesterol [Mass/Vol] 159 mg/dL <201 [facility] Comment on above: Cholesterol level, D esirable <200 mg/dLBorderline high cholesterol 200-239 mg/dLHigh cholesterol >=240 mg/dLRecommendations of the NCEP Adult Treatment Panel for the following risk-cutoff thresholds for the [place] population. Serum or plasma urea nitroge n measurement (mass/volume)Ordered By: Yris Rao on 01-19-2025 Urea nitrogen [Mass/Vol] 12 mg/dL 4-19 [facility] Sodium levelOrdered By: Gilberto Rao on 01-19-2025 Sodium [Moles/Vol] 140 mmol/L 133-145 [facility] TSH DL <= 0.005 mIU/L QnOrde red By: Yris Rao on 01-19-2025 TSH Qn 2.210 uIU/mL 0.300-4.200 [facility] Thyroid Stim Hormone (TSH)on 01-19-2025 TSH 2.210 uIU/mL Normal 0.300-4.200 [facility] Comment on above: Order Comment: Comme nts: NPO at NM prior to lipid panel Performed By: #### L 500.4100, L501.9520, L501.9985, L100.0100, L500.2500, L501.5200 ####[facility] [address] [place], [address] Triglycerides measurementOrd ered By: Yris Rao on 01-19-2025 Triglyceride [Mass/Vol] 88 mg/dL <199 [facility] Comment on above: The drugs N-Acetylcy steine and Metamizole may falsely depress this assay. Normal range: <150 mg/dLBorderline High: 150-199 mg/dLHigh: 200-499 mg/dLVery High: >500 mg/dL White blood cell (WBC) count Ordered By: Yris Rao on 01-19-2025 WBC (Bld) [#/Vol] 7.2 10*3/uL 4.4-11.0 [facility] 12 Lead EKGon 01-18-2025 12 Lead EKG [facility] Cardiovascular Services [address] [place] [address] 12 Lead EKG 01/18/25 1752 MR#: [id number] Acct: [id number] Name: CHARAN GARCIA Rep #: [id number] : 1960 64 From: Siva Swann MD Attending Dr: Dr. Marky Lund DO Status: D IS IN Ordering Dr: Jorge Villareal DO Date: 01/18/25 Location: [facility] Sex: M C Admitted: 01/18/25 Test Reason : Blood Pressure : */* mmHG Vent. Rate : 61 BPM Atrial Rate : 61 BPM P-R Int : 162 ms QRS Dur : 92 ms QT Int : 412 ms P-R-T Axes : 61 25 26 degrees QTcB Int : 414 ms Normal sinus rhythm Normal ECG Confirmed by Siva Swann ([id number]), commissioning editor ALIX PENA ([id number]) on 01/20/2025 6:43:49 AM Referred By: Confirmed By: iSva Swann 01/20/25 0643 Date Siva Swann MD CC: Dr. Anne Arellano MD; Dr. Marky Lund DO; Dr. Jorge Villareal DO Signed Normal [facility] Absolute lymphocyte countOrd ered By: Jorge Villareal on 01-18-2025 Lymphocytes Auto (Unsp spec) [#/Vol] 0.65 10*3/uL Low 0.83-4.51 [facility] Absolute neutrophil countOrd ered By: Jorge Villareal on 01-18-2025 Neutrophils (Bld) [#/Vol] 6.2 10*3/uL 2.0-7.7 [facility] Activated partial thrombopla stin time (aPTT) in platelet poor plasma by coagulation aOrdered By: Jorge Villareal on 09-03-2025 aPTT Coag (PPP) [Time] 29.8 s 24.1-36.2 [facility] Anion gap in Serum or Plasma Ordered By: Jorge Villareal on 01-18-2025 Anion gap [Moles/Vol] 14 mmol/L 5-15 [facility] Automated lymphocyte count a s percentage of total leukocytesOrdered By: Jorge Villareal on 01-18-2025 Lymphocytes/100 WBC Auto (Unsp spec) 9.2 % Low - [facility] BUN/creatinine ratioOrdered By: Jorge Villareal on 01-18-2025 Urea nitrogen/Creatinine [Mass ratio] 18.7 mg/mg - [facility] Basic Metabolic Profile (BMP )on 01-18-2025 BUN/CRE 18.7 RATIO Normal - [facility] Comment on above: Performed By: #### L 100.0100, L300.3900, L501.4021, L300.4310, L500.2500 ####[facility] [address] [place], [address] Calcium [Mass/Vol] 9.2 mg/dL Normal 7.6-11.0 [facility] Comment on above: Performed By: #### L 100.0100, L300.3900, L501.4021, L300.4310, L500.2500 ####[facility] [address] [place], [address] Chloride [Moles/Vol] 105 mmol/L Normal 98-108 [facility] Comment on above: Performed By: #### L 100.0100, L300.3900, L501.4021, L300.4310, L500.2500 ####[facility] [address] [place], [address] CO2 [Moles/Vol] 19.6 mmol/L Low 21.0-32.0 [facility] Comment on above: Performed By: #### L 100.0100, L300.3900, L501.4021, L300.4310, L500.2500 ####[facility] [address] [place], [address] Creatinine [Mass/Vol] 0.76 mg/dL Normal 0.70-1.20 [facility] Comment on above: Performed By: #### L 100.0100, L300.3900, L501.4021, L300.4310, L500.2500 ####[facility] [address] [place], [address] ECRCL 89.93 ml/min Normal 50-250 [facility] Comment on above: Performed By: #### L 100.0100, L300.3900, L501.4021, L300.4310, L500.2500 ####[facility] [address] [place], [address] GAP 14 Normal 5-15 [facility] Comment on above: Performed By: #### L 100.0100, L300.3900, L501.4021, L300.4310, L500.2500 ####[facility] [address] [place], [address] GFR/1.73 sq M.predicted among non-blacks MDRD (S/P/Bld) [Vol rate/Area] 99 mL/min/{1.73_m2} Normal >60 [facility] Comment on above: Result Comment: mL/m in/1.73m2 CKD-EPI Creatinine Equation (2020) Performed By: #### L 100.0100, L300.3900, L501.4021, L300.4310, L500.2500 ####[facility] [address] [place], [address] Glucose [Mass/Vol] 119 mg/dL High 70-99 [facility] Comment on above: Performed By: #### L 100.0100, L300.3900, L501.4021, L300.4310, L500.2500 ####[facility] [address] [place], [address] Potassium [Moles/Vol] 3.7 mmol/L Normal 3.3-5.1 [facility] Comment on above: Result Comment: Hemo lysis present, Results??could be affected. ?? Performed By: #### L 100.0100, L300.3900, L501.4021, L300.4310, L500.2500 ####[facility] [address] [place], [address] Sodium [Moles/Vol] 139 mmol/L Normal 133-145 [facility] Comment on above: Performed By: #### L 100.0100, L300.3900, L501.4021, L300.4310, L500.2500 ####[facility] [address] [place], [address] Urea nitrogen [Mass/Vol] 14 mg/dL Normal 4-19 [facility] Comment on above: Performed By: #### L 100.0100, L300.3900, L501.4021, L300.4310, L500.2500 ####[facility] [address] [place], [address] Basophil percentageOrdered B y: Jorge Hudsons on 01-18-2025 Basophils/100 WBC (Bld) 0.3 % 0-1 [facility] CBC W/Diff, Automatedon Absolute Lymph 0.65 X10 3/uL Low 0.83-4.51 [facility] Comment on above: Performed By: #### L 100.0100, L300.3900, L501.4021, L300.4310, L500.2500 ####[facility] [address] [place], [address] Absolute Neut 6.2 X10 3/uL Normal 2.0-7.7 [facility] Comment on above: Performed By: #### L 100.0100, L300.3900, L501.4021, L300.4310, L500.2500 ####[facility] [address] [place], [address] Basophils/100 WBC (Bld) 0.3 % Normal 0-1 [facility] Comment on above: Performed By: #### L 100.0100, L300.3900, L501.4021, L300.4310, L500.2500 ####[facility] [address] [place], [address] Eosinophils/100 WBC (Bld) 0.0 % Normal 0-5 [facility] Comment on above: Performed By: #### L 100.0100, L300.3900, L501.4021, L300.4310, L500.2500 ####[facility] [address] [place], [address] Erythrocyte distribution width (RBC) [Ratio] 13.5 % Normal 11.6-14.6 [facility] Comment on above: Performed By: #### L 100.0100, L300.3900, L501.4021, L300.4310, L500.2500 ####[facility] [address] [place], [address] Hematocrit (Bld) [Volume fraction] 45.0 % Normal 40-54 [facility] Comment on above: Performed By: #### L 100.0100, L300.3900, L501.4021, L300.4310, L500.2500 ####[facility] [address] [place], [address] Hemoglobin (Bld) [Mass/Vol] 16.1 g/dL Normal 13.0-16.5 [facility] Comment on above: Performed By: #### L 100.0100, L300.3900, L501.4021, L300.4310, L500.2500 ####[facility] [address] [place], [address] IG% 0.100 Normal 0.0-0.9 [facility] Comment on above: Result Comment: IG% - Immature Granulocytes (promyelocytes, myelocytes and metamyelocytes) > 1% indicates that a LEFT SHIFT is Present. Performed By: #### L 100.0100, L300.3900, L501.4021, L300.4310, L500.2500 ####[facility] [address] [place], [address] Lymphocytes/100 WBC (Bld) 9.2 % Low 19-41 [facility] Comment on above: Performed By: #### L 100.0100, L300.3900, L501.4021, L300.4310, L500.2500 ####[facility] [address] [place], [address] MCH (RBC) [Entitic mass] 34.4 pg High 27.0-32.0 [facility] Comment on above: Performed By: #### L 100.0100, L300.3900, L501.4021, L300.4310, L500.2500 ####[facility] [address] [place], [address] MCHC (RBC) [Mass/Vol] 35.8 g/dL Normal 32-36 [facility] Comment on above: Performed By: #### L 100.0100, L300.3900, L501.4021, L300.4310, L500.2500 ####[facility] [address] [place], [address] MCV (RBC) [Entitic vol] 96.2 fL High 80-94 [facility] Comment on above: Performed By: #### L 100.0100, L300.3900, L501.4021, L300.4310, L500.2500 ####[facility] [address] [place], [address] Monocytes/100 WBC (Bld) 2.7 % Normal 0-10 [facility] Comment on above: Performed By: #### L 100.0100, L300.3900, L501.4021, L300.4310, L500.2500 ####[facility] [address] [place], [address] Neutrophils/100 WBC (Bld) 87.7 % High 47-70 [facility] Comment on above: Performed By: #### L 100.0100, L300.3900, L501.4021, L300.4310, L500.2500 ####[facility] [address] [place], [address] Nucleated RBC (Bld) [#/Vol] 0 10*3/uL Normal 0-5 [facility] Comment on above: Performed By: #### L 100.0100, L300.3900, L501.4021, L300.4310, L500.2500 ####[facility] [address] [place], [address] Platelet mean volume (Bld) [Entitic vol] 9.5 fL Normal 6.2-12.0 [facility] Comment on above: Performed By: #### L 100.0100, L300.3900, L501.4021, L300.4310, L500.2500 ####[facility] [address] [place], [address] Platelets (Bld) [#/Vol] 293 10*3/uL Normal 150-450 [facility] Comment on above: Performed By: #### L 100.0100, L300.3900, L501.4021, L300.4310, L500.2500 ####[facility] [address] [place], [address] RBC (Bld) [#/Vol] 4.68 10*6/uL Normal 4.6-6.2 [facility] Comment on above: Performed By: #### L 100.0100, L300.3900, L501.4021, L300.4310, L500.2500 ####[facility] [address] [place], [address] RDW SD 47.9 fl High 35.1-43.9 [facility] Comment on above: Performed By: #### L 100.0100, L300.3900, L501.4021, L300.4310, L500.2500 ####[facility] [address] [place], [address] WBC (Bld) [#/Vol] 7.0 10*3/uL Normal 4.4-11.0 [facility] Comment on above: Performed By: #### L 100.0100, L300.3900, L501.4021, L300.4310, L500.2500 ####[facility] [address] [place], [address] Carbon dioxide, total [Moles /volume] in Central venous bloodOrdered By: Jorge Villareal on 01-18-2025 CO2 [Moles/Vol] 19.6 mmol/L Low 21.0-32.0 [facility] Chloride assayOrdered By: Jewels Villareal on 01-18-2025 Chloride [Moles/Vol] 105 mmol/L 98-108 [facility] Echo Completeon 01-18-2025 Echo Complete [facility] Cardi[facility] [address] [place] [address] Echo Complete 01/19/25 0820 MR#: [id number] Acct: [id number] Name: CHARAN GARCIA Rep #: [id number] : 1960 64 From: Rafia Reyes MD Attending Dr: Dr. Marky Lund, DO Status: A DM IN Ordering Dr: Yris Rao MD Date: 01/18/25 Location: [facility] Sex: M C Admitted: 01/18/25 Reason For [...] Date Dictated: 01/19/25819 Date Transcribed: 01/19/25 142 Company Driver: Signed Normal [facility] Emergency Department Summary on 01-18-2025 Emergency Department Summary [facility] Medical Records Department [address] [place] [address] Emergency Department Summary 01/18/25 MR#: [id number] Acct: [id number] Name: CHARAN GARCIA Rep #: [id number] : 1960 64 From: Jorge Villareal DO PCP: Dr. Anne Arellano MD Status:ADM IN Location: [place] [address] HPI History of Present Illness Chief Complaint: Neuro S/Sx PFSH [facility] Medical History (Updated 01/18/25 @ 17:54 [...] Ox 96 Oxygen Delivery [place] [facility] [place] Medical decision making narrative: HISTORY OF [...] reviewed, Vital signs reviewed Constitutional: please see [facility] HENT: MMM Eyes: Pupils equal round and [...] MEDICAL DECISION MAKING: Chief Complaint: please see [facility] External records reviewed: Reviewed prior medications. No [...] significant other (more content not included)... Normal [facility] Eosinophil percentageOrdered By: Jorge Villareal on 01-18-2025 Eosinophils/100 WBC (Bld) 0.0 % 0-5 [facility] Erythrocyte distribution wid th ratioOrdered By: Jorge Villareal on 01-18-2025 Erythrocyte distribution width (RBC) [Ratio] 13.5 % 11.6-14.6 [facility] Erythrocyte distribution wid th standard deviationOrdered By: Jorge Villareal on 01-18-2025 Erythrocyte distribution width (RBC) [Ratio] 47.9 fl High 35.1-43.9 [facility] Glomerular filtration rate ( GFR) estimation/1.73 sq m using serum, plasma, or whole bOrdered By: Jorge Villareal on 01-18-2025 GFR/1.73 sq M.predicted among non-blacks MDRD (S/P/Bld) [Vol rate/Area] 99 mL/min/{1.73_m2} >60 [facility] Comment on above: mL/min/1.73m2 CKD-EP I Creatinine Equation (2020) H AND P Exam - [place] 01-18-2025 H&P Exam - Hospitalist [facility] Medical Records Department [address] [place] [address] H P Exam - Hospitalist 01/18/25 1835 MR#: [id number] Acct: [id number] Name: CHARAN GARCIA Rep #: [id number] : 1960 64 From: Yris Rao MD PCP: Dr. Anne Arellano MD Status:ADM IN Location: [facility] [id number] HPI - General General Date of Admission: 01/18/25 Date of Service: 01/19/25 Chief Complaint: Left hand weakness, left facial droop and slurred speech HPI Narrative CHARAN GARCIA, is a 64-year-old male with a history of GERD, hypertension, tobacco use, CVA who presented to [facility] ED 01/18/2025 due to acute onset [...] to smoke but has been cutting back. [facility] Medical History (Updated 01/19/25 @ 13:06 [...] Blood Pres (more content not included)... Normal [facility] Hematocrit Auto (Bld) [Volum e fraction]Ordered By: Jorge Villareal on 01-18-2025 Hematocrit (Bld) [Volume fraction] 45.0 % 40-54 [facility] Hemoglobin measurementOrdere d By: Jorge Villareal on 01-18-2025 Hemoglobin (Bld) [Mass/Vol] 16.1 g/dL 13.0-16.5 [facility] Immature granulocytes/100 WB C Auto (Bld)Ordered By: Jorge Villareal on 01-18-2025 Immature granulocytes/100 WBC (Bld) 0.100 % 0.0-0.9 [facility] Comment on above: IG% - Immature Granu locytes (promyelocytes, myelocytes and metamyelocytes) > 1% indicates that a LEFT SHIFT is Present. International normalized rat io (INR) calculationOrdered By: Jorge Villareal on 01-18-2025 INR Coag (Bld) [Relative time] 1.0 {INR} [facility] L501.4021on 01-18-2025 Trop T High Sen 6 ng/L Normal <=22 [facility] Comment on above: Performed By: #### L 100.0100, L300.3900, L501.4021, L300.4310, L500.2500 ####[facility] [address], [place], [id number] MCV (mean corpuscular volume ) determinationOrdered By: Jorge Villareal on 01-18-2025 MCV (RBC) [Entitic vol] 96.2 fL High 80-94 [facility] Mean corpuscular hemoglobin (MCH) determinationOrdered By: Jorge Villareal on 01-18-2025 MCH (RBC) [Entitic mass] 34.4 pg High 27.0-32.0 [facility] Mean corpuscular hemoglobin concentration (MCHC) determinationOrdered By: Jorge Villareal on 01-18-2025 MCHC (RBC) [Mass/Vol] 35.8 g/dL 32-36 [facility] Mean platelet volume determi nationOrdered By: Jorge Villareal on 01-18-2025 Platelet mean volume (Bld) [Entitic vol] 9.5 fL 6.2-12.0 [facility] Monocyte percentageOrdered B y: Jorge Villareal on 01-18-2025 Monocytes/100 WBC (Bld) 2.7 % 0-10 [facility] Neutrophil percentageOrdered By: Jorge Villareal on 01-18-2025 Neutrophils/100 WBC (Bld) 87.7 % High 47-70 [facility] Nucleated red blood cell per centageOrdered By: Jorge Villareal on 01-18-2025 Nucleated RBC/100 WBC (Bld) [Ratio] 0 % 0-5 [facility] Partial Thromboplast Timeon 01-18-2025 aPTT Coag (Bld) [Time] 29.8 s Normal 24.1-36.2 [facility] Comment on above: Performed By: #### L 100.0100, L300.3900, L501.4021, L300.4310, L500.2500 ####[facility] [address] [place], [address] Platelet countOrdered By: Jewels Villareal on 01-18-2025 Platelets (Bld) [#/Vol] 293 10*3/uL 150-450 [facility] Potassium measurement (mass/ volume)Ordered By: Jorge Villareal on 01-18-2025 Potassium (Unsp spec) [Mass/Vol] 3.7 mmol/L 3.3-5.1 [facility] Comment on above: Hemolysis present, R esults could be affected. Prothrombin Time w/INRon INR Coag (PPP) [Relative time] 1.0 {INR} Normal [facility] Comment on above: Performed By: #### L 100.0100, L300.3900, L501.4021, L300.4310, L500.2500 ####[facility] [address] [place], [address] PT Coag (PPP) [Time] 12.9 s Normal 11.7-14.9 [facility] Comment on above: Performed By: #### L 100.0100, L300.3900, L501.4021, L300.4310, L500.2500 ####[facility] [address] [place], [place], [address] Prothrombin timeOrdered By: Jorge Villareal on 01-18-2025 PT Coag (PPP) [Time] 12.9 s 11.7-14.9 [facility] RBC Auto (Bld) [#/Vol]Ordere d By: Jorge Villareal on 01-18-2025 RBC (Bld) [#/Vol] 4.68 10*6/uL 4.6-6.2 [facility] STROKE Brain/Head without Co nton 01-18-2025 STROKE Brain/Head without Cont [facility] Imaging Services [address] [place], [place] [address] STROKE Brain/Head without Cont MR#: [id number] Acct: [id number] Name: CHARAN GARCIA Rep #: [id number] : 1960 M 64 From: Milton Thomas MD PCP: Dr. Anne Arellano MD Status: REG ER Study: STROKE Brain/Head without Cont Date of Exam: 0 01/18/25 Exam# [id number] Ordering Dr: Jorge Villareal DO PROCEDURE: STROKE [...] arterial occlusion or significant stenosis. Reading Location: [id number] CC: Dr. Anne Arellano MD; Dr. Jorge Villareal DO Company Driver: Signed Normal [facility] STROKE CTA Head AND Neck W/C onon 01-18-2025 STROKE CTA Head AND Neck W/Con [facility] Imaging Services [address] [place] [address] STROKE CTA Head AND Neck W/Con MR#: [id number] Acct: [id number] Name: CHARAN GARCIA Rep #: [id number] : 1960 M 64 From: Milton Thomas MD PCP: Dr. Anne Arellano MD Status: REG ER Study: STROKE CTA Head AND Neck W/Con Date of Exam: 0 01/18/25 Exam# [id number] Ordering Dr: Jorge Villareal DO PROCEDURE: STROKE [...] arterial occlusion or significant stenosis. Reading Location: [id number] CC: Dr. Anne Arellano MD; Dr. Jorge Villareal DO Company Driver: Signed Normal [facility] Serum creatinine measurement (mass/volume)Ordered By: Jorge Villareal on 01-18-2025 Creatinine [Mass/Vol] 0.76 mg/dL 0.70-1.20 [facility] Serum glucose measurement (m ass/volume)Ordered By: Jorge Villareal on 01-18-2025 Glucose [Mass/Vol] 119 mg/dL High 70-99 [facility] Serum or plasma calcium leonardo urement (mass/volume)Ordered By: Jorge Villareal on 01-18-2025 Calcium [Mass/Vol] 9.2 mg/dL 7.6-11.0 [facility] Serum or plasma urea nitroge n measurement (mass/volume)Ordered By: Jorge Villareal on 01-18-2025 Urea nitrogen [Mass/Vol] 14 mg/dL 4-19 [facility] Sodium levelOrdered By: Joao Villareal on 01-18-2025 Sodium [Moles/Vol] 139 mmol/L 133-145 [facility] Troponin T HS 2 HRon 025 Trop T High Sen 10 ng/L Normal <=22 [facility] Comment on above: Performed By: #### L 499.0042 ####[facility] [address] [place], [place], [address] Troponin T HS 4 HRon 025 Trop T High Sen 8 ng/L Normal <=22 [facility] Comment on above: Performed By: #### L 499.0043 #### [facility] Laboratory [address] [place], [place], [address] Troponin T.cardiac [Mass/vol ume] in Serum or Plasma by High sensitivity methodOrdered By: Jorge Villareal on 01-18-2025 Troponin T.cardiac High sensitivity method [Mass/Vol] 8 ng/L <22 [facility] Troponin T.cardiac High sensitivity method [Mass/Vol] 10 ng/L <22 [facility] Troponin T.cardiac High sensitivity method [Mass/Vol] 6 ng/L <22 [facility] White blood cell (WBC) count Ordered By: Jorge Villareal on 01-18-2025 WBC (Bld) [#/Vol] 7.0 10*3/uL 4.4-11.0 [facility] Wrist min 3 Viewson 01-18-20 25 Wrist min 3 Views [facility] Imaging Services [address] [place] [address] Wrist min 3 Views MR#: [id number] Acct: [id number] Name: CHARAN GARCIA Rep #: [id number] : 1960 M 64 From: Marky Haji MD PCP: Dr. Anne Arellano MD Status: REG CLI Study: Wrist min 3 Views Date of Exam: 01/17/25 Exam# [id number] Ordering Dr: Anne Arellano MD EXAM: XR [...] 3. Degenerative changes as above. Reading Location: [facility] CC: Dr. Anne Arellano MD Company Driver: Signed Normal [facility] PSA, total screeningOrdered By: Tae Gardiner on 08-26-2024 Prostate Specific Antigen Screen 3.02 ng/mL 0.02-4.00 [facility] Comment on above: This test was [...] 08-26-2024 PSA,TOT SCREEN 3.02 ng/mL Normal 0.02-4.00 [facility] Comment on above: Order Comment: Order [...] baseline values. Performed By: #### L 501.9910 ####[facility] [address] [facility] [place], [place], [address] CT Chest, Abd, Pel w/Contras ton 08-23-2024 CT Chest, Abd, Pel w/Contrast [facility] Imaging Services [address] [place], [place] [address] CT Chest, Abd, Pel w/Contrast MR#: [id number] Acct: [id number] Name: CHARAN GARCIA Rep #: [id number] : 1960 M 64 From: Josefina Nicole MD PCP: Dr. Anne Arellano MD Status: REG CLI Study: CT Chest, Abd, Pel w/Contrast Date of Exam: Exam# [id number] Ordering Dr: Oliver Dang DO PROCEDURE: CT [...] *Diverticulosis within the sigmoid colon. Reading Location: [id number] CC: Dr. Anne Arellano MD; Oliver Dang DO Company Driver: Signed Normal [facility] Gastroenterology Visit Repor ton 07-20-2024 Gastroenterology Visit Report [facility] Gastroenterology [address] [facility] [place] [address] OFFICE VISIT Date of Service: 07/20/24 MR#: [id number] Acct: [id number] Name: CHARAN GARCIA A Rep #: [id number] : 1960 Provider: Oliver Dang DO Age/Sex: 64/M Location: [facility] Status: Signed Intake Vital Signs [...] History (Updated 11/26/22 @ 16:[address] Chaarn Martinez MD) Mother CVA (cerebral vascular accident) [...] Nutritional Appearance: average body habitus Orientation: alert [facility] Ears: hearing grossly normal bilaterally Nose: external [...] pelvis. Order (more content not included)... Normal [facility] 12 Lead EKGon 06-12-2024 12 Lead EKG [facility] Cardiovascular Services [address] [place] [address] 12 Lead EKG 06/12/24 1836 MR#: [id number] Acct: [id number] Name: CHARAN GARCIA Rep #: [id number] : 1960 64 From: Rafia Reyes MD [...] ECG Confirmed by AMY NEGRON, ADAM ([id number]), commissioning editor ALIX PENA ([id number]) on 06/14/2024 6:19:01 AM Referred By: MONO Confirmed By: ADAM REYES MD 06/14/24 0619 Date Rafia Reyes MD CC: Dr. Elvis Gonzalez DO; Dr. Anne Arellano MD Signed Normal [facility] Absolute neutrophil countOrd ered By: Elvis Gonzalez on 06-12-2024 Neutrophils (Bld) [#/Vol] 5.3 10*3/uL 2.0-7.7 [facility] Albumin to globulin ratioOrd ered By: Elvis Gonzalez on 06-12-2024 Albumin/Globulin [Mass ratio] 1.0 {ratio} 0.9-2.4 [facility] BNP (brain natriuretic pepti de measurement)Ordered By: Elvis Gonzalez on 06-12-2024 Natriuretic peptide B (Bld) [Mass/Vol] 12.2 pg/mL 0-100 [facility] BNP,B-Type NATRIURETIC PEPTI Duc 06-12-2024 Natriuretic peptide B (Bld) [Mass/Vol] 12.2 pg/mL Normal 0-100 [facility] Comment on above: Performed By: #### L 300.4310, L300.3900, L100.0100, L300.8000, L503.6620 #### [facility] Laboratory [address] [place], [address] Basophil percentageOrdered B y: Elvis Gonzalez on 06-12-2024 Basophils/100 WBC (Bld) 0.6 % 0-1 [facility] Bilirubin, totalOrdered By: Elvismelanie Gonzalez on 06-12-2024 Bilirubin [Mass/Vol] 0.30 mg/dL 0.20-1.00 [facility] Comment on above: For patients on eltr ombopag therapy, use of Dimension [place] TBIL is not recommended. Blood urea nitrogen (BUN)/cr eatinine ratioOrdered By: Elvis Gonzalez on 06-12-2024 Urea nitrogen/Creatinine [Mass ratio] 14.7 mg/mg 10-20 [facility] CBC W/Diff, Automatedon 05-19 Absolute Lymph 2.06 X10 3/uL Normal 0.83-4.51 [facility] Comment on above: Performed By: #### L 300.4310, L300.3900, L100.0100, L300.8000, L503.6620 #### [facility] Laboratory [address] [place], [address] Absolute Neut 5.3 X10 3/uL Normal 2.0-7.7 [facility] Comment on above: Performed By: #### L 300.4310, L300.3900, L100.0100, L300.8000, L503.6620 #### [facility] Laboratory [address] [place], [address] Basophils/100 WBC (Bld) 0.6 % Normal 0-1 [facility] Comment on above: Performed By: #### L 300.4310, L300.3900, L100.0100, L300.8000, L503.6620 #### [facility] Laboratory [address] [place], [address] Eosinophils/100 WBC (Bld) 4.3 % Normal 0-5 [facility] Comment on above: Performed By: #### L 300.4310, L300.3900, L100.0100, L300.8000, L503.6620 #### [facility] Laboratory [address] [place], [address] Erythrocyte distribution width (RBC) [Ratio] 13.8 % Normal 11.6-14.6 [facility] Comment on above: Performed By: #### L 300.4310, L300.3900, L100.0100, L300.8000, L503.6620 #### [facility] Laboratory [address] [place], [address] Hematocrit (Bld) [Volume fraction] 43.5 % Normal 40-54 [facility] Comment on above: Performed By: #### L 300.4310, L300.3900, L100.0100, L300.8000, L503.6620 #### [facility] Laboratory [address] [place], [address] Hemoglobin (Bld) [Mass/Vol] 15.0 g/dL Normal 13.0-16.5 [facility] Comment on above: Performed By: #### L 300.4310, L300.3900, L100.0100, L300.8000, L503.6620 #### [facility] Laboratory [address] [place], [address] IG% 0.400 Normal 0.0-0.9 [facility] Comment on above: Result Comment: IG% - Immature Granulocytes (promyelocytes, myelocytes and metamyelocytes) > 1% indicates that a LEFT SHIFT is Present. Performed By: #### L 300.4310, L300.3900, L100.0100, L300.8000, L503.6620 #### [facility] Laboratory [address] [place], [address] Lymphocytes/100 WBC (Bld) 24.2 % Normal 19-41 [facility] Comment on above: Performed By: #### L 300.4310, L300.3900, L100.0100, L300.8000, L503.6620 #### [facility] Laboratory [address] [place], [address] MCH (RBC) [Entitic mass] 33.1 pg High 27.0-32.0 [facility] Comment on above: Performed By: #### L 300.4310, L300.3900, L100.0100, L300.8000, L503.6620 #### [facility] Laboratory [address] [place], [address] MCHC (RBC) [Mass/Vol] 34.5 g/dL Normal 32-36 [facility] Comment on above: Performed By: #### L 300.4310, L300.3900, L100.0100, L300.8000, L503.6620 #### [facility] Laboratory [address] [place], [address] MCV (RBC) [Entitic vol] 96.0 fL High 80-94 [facility] Comment on above: Performed By: #### L 300.4310, L300.3900, L100.0100, L300.8000, L503.6620 #### [facility] Laboratory [address] [place], [address] Monocytes/100 WBC (Bld) 8.9 % Normal 0-10 [facility] Comment on above: Performed By: #### L 300.4310, L300.3900, L100.0100, L300.8000, L503.6620 #### [facility] Laboratory [address] [place], [address] Neutrophils/100 WBC (Bld) 61.6 % Normal 47-70 [facility] Comment on above: Performed By: #### L 300.4310, L300.3900, L100.0100, L300.8000, L503.6620 #### [facility] Laboratory [address] [place], [address] Nucleated RBC (Bld) [#/Vol] 0 10*3/uL Normal 0-5 [facility] Comment on above: Performed By: #### L 300.4310, L300.3900, L100.0100, L300.8000, L503.6620 #### [facility] Laboratory [address] [place], [address] Platelet mean volume (Bld) [Entitic vol] 10.2 fL Normal 6.2-12.0 [facility] Comment on above: Performed By: #### L 300.4310, L300.3900, L100.0100, L300.8000, L503.6620 #### [facility] Laboratory [address] [place], [address] Platelets (Bld) [#/Vol] 204 10*3/uL Normal 150-450 [facility] Comment on above: Performed By: #### L 300.4310, L300.3900, L100.0100, L300.8000, L503.6620 #### [facility] Laboratory [address] [place], [address] RBC (Bld) [#/Vol] 4.53 10*6/uL Low 4.6-6.2 [facility] Comment on above: Performed By: #### L 300.4310, L300.3900, L100.0100, L300.8000, L503.6620 #### [facility] Laboratory [address] [place], [address] RDW SD 49.1 fl High 35.1-43.9 [facility] Comment on above: Performed By: #### L 300.4310, L300.3900, L100.0100, L300.8000, L503.6620 #### [facility] Laboratory [address] [place], [address] WBC (Bld) [#/Vol] 8.5 10*3/uL Normal 4.4-11.0 [facility] Comment on above: Performed By: #### L 300.4310, L300.3900, L100.0100, L300.8000, L503.6620 #### [facility] Laboratory [address] [place], [address] Carbon dioxide measurementOr dered By: Elvis Gonzalez on 06-12-2024 CO2 [Moles/Vol] 27.0 mmol/L 21.0-32.0 [facility] Chest 1 View (Portable)on Chest 1 View (Portable) [facility] Imaging Services [address] [place] [address] Chest 1 View (Portable) MR#: [id number] Acct: [id number] Name: CHARAN GARCIA Rep #: [id number] : 1960 64 From: Mauro Lowery PCP: Dr. Anne Arellano MD Status: REG ER Study: Chest 1 View (Portable) Date of Exam: 06/12/24 Exam# [id number] Ordering Dr: Elvis Gonzalez DO [id number] EXAM: XR CHEST, 1 VIEW CLINICAL INDICATION: [...] 20:44 EST Reading Location ID and State: [facility] / [place] , Service support , CC: Dr. Elvis Gonzalez, DO; Dr. Anne Arellano MD Company Driver: Signed Normal [facility] Chloride measurementOrdered By: Elvis Gonzalez on 06-12-2024 Chloride [Moles/Vol] 108 mmol/L High 98-107 [facility] Comprehensive Metabolic Prof ilon 06-12-2024 Albumin [Mass/Vol] 3.4 g/dL Normal 3.2-5.0 [facility] Comment on above: Order Comment: 1Y Performed By: #### L 501.5425, L501.2450, L500.4050 ####[facility] [address] [place], [address] Albumin/Globulin [Mass ratio] 1.0 {ratio} Normal 0.9-2.4 [facility] Comment on above: Order Comment: 1Y Performed By: #### L 501.5425, L501.2450, L500.4050 ####[facility] [address] [place], [address] ALK P 81 U/L Normal 45-117 [facility] Comment on above: Order Comment: 1Y Performed By: #### L 501.5425, L501.2450, L500.4050 ####[facility] [address] [place], [address] ALT [Catalytic activity/Vol] 25 U/L Normal 16-61 [facility] Comment on above: Order Comment: 1Y Performed By: #### L 501.5425, L501.2450, L500.4050 ####[facility] [address] [place], [address] AST [Catalytic activity/Vol] 15 U/L Normal 15-37 [facility] Comment on above: Order Comment: 1Y Performed By: #### L 501.5425, L501.2450, L500.4050 ####[facility] [address] [place], [address] Bilirubin [Mass/Vol] 0.30 mg/dL Normal 0.20-1.00 [facility] Comment on above: Order Comment: 1Y Result Comment: For patients on eltrombopag therapy, use of Dimension [place] TBIL is not recommended. Performed By: #### L 501.5425, L501.2450, L500.4050 ####[facility] [address] [place], [address] BUN/CRE 14.7 RATIO Normal 10-20 [facility] Comment on above: Order Comment: 1Y Performed By: #### L 501.5425, L501.2450, L500.4050 ####[facility] [address] [place], [address] CA,Total 8.9 mg/dL Normal 8.5-10.1 [facility] Comment on above: Order Comment: 1Y Performed By: #### L 501.5425, L501.2450, L500.4050 ####[facility] [address] [place], [address] Chloride [Moles/Vol] 108 mmol/L High 98-107 [facility] Comment on above: Order Comment: 1Y Performed By: #### L 501.5425, L501.2450, L500.4050 ####[facility] [address] [place], [address] CO2 [Moles/Vol] 27.0 mmol/L Normal 21.0-32.0 [facility] Comment on above: Order Comment: 1Y Performed By: #### L 501.5425, L501.2450, L500.4050 ####[facility] [address] [place], [address] Creatinine [Mass/Vol] 0.95 mg/dL Normal 0.70-1.30 [facility] Comment on above: Order Comment: 1Y Result Comment: The validity of the calculated GFR GFRAA in patients over 70 years has not been determined. Clinical correlation is essential. Performed By: #### L 501.5425, L501.2450, L500.4050 ####[facility] [address] [place], [address] EST GFR - AA 101 mL/min Normal >60 [facility] Comment on above: Order Comment: 1Y Result Comment: Afri can Taiwanese GFR Calc Performed By: #### L 501.5425, L501.2450, L500.4050 ####[facility] [address] [place], [address] GAP 4 Low 5-15 [facility] Comment on above: Order Comment: 1Y Performed By: #### L 501.5425, L501.2450, L500.4050 ####[facility] [address] [place], [address] GFR/1.73 sq M.predicted among non-blacks MDRD (S/P/Bld) [Vol rate/Area] 84 mL/min/{1.73_m2} Normal >60 [facility] Comment on above: Order Comment: 1Y Result Comment: Non- GFR Calc Performed By: #### L 501.5425, L501.2450, L500.4050 ####[facility] [address] [place], [address] Globulin (S) [Mass/Vol] 3.5 g/dL Normal 2.2-4.2 [facility] Comment on above: Order Comment: 1Y Performed By: #### L 501.5425, L501.2450, L500.4050 ####[facility] [address] [place], [address] Glucose [Mass/Vol] 88 mg/dL Normal 74-106 [facility] Comment on above: Order Comment: 1Y Performed By: #### L 501.5425, L501.2450, L500.4050 ####[facility] [address] [place], [address] Potassium [Moles/Vol] 3.7 mmol/L Normal 3.5-5.1 [facility] Comment on above: Order Comment: 1Y Performed By: #### L 501.5425, L501.2450, L500.4050 ####[facility] [address] [place], [address] Sodium [Moles/Vol] 139 mmol/L Normal 136-145 [facility] Comment on above: Order Comment: 1Y Performed By: #### L 501.5425, L501.2450, L500.4050 ####[facility] [address] [place], [address] T PROT 6.9 g/dL Normal 6.4-8.2 [facility] Comment on above: Order Comment: 1Y Performed By: #### L 501.5425, L501.2450, L500.4050 ####[facility] [address] [place], [address] Urea nitrogen [Mass/Vol] 14 mg/dL Normal 7-18 [facility] Comment on above: Order Comment: 1Y Performed By: #### L 501.5425, L501.2450, L500.4050 ####[facility] [address] [place], [address] D-Dimer Quantitative (DVT/PE )on 06-12-2024 D-DIMER QUANT 0.40 FEU/ug/m Normal 0.27-0.49 [facility] Comment on above: Result Comment: NORM AL D-Dimer level (<0.50) indicates no DVT or PE. Performed By: #### L 300.4310, L300.3900, L100.0100, L300.8000, L503.6620 #### [facility] [address] [place], [address] D-dimer measurement for deep venous thrombosisOrdered By: Elvis Gonzalez on 06-12-2024 D-Dimer Quantitative (PE/DVT) 0.40 FEU/ug/m 0.27-0.49 [facility] Comment on above: NORMAL D-Dimer level (<0.50) indicates no DVT or PE. Emergency Department Summary on 06-12-2024 Emergency Department Summary [facility] Medical Records Department [address] [place] [address] Emergency Department Summary 06/12/24 MR#: [id number] Acct: [id number] Name: CHARAN GARCIA Rep #: [id number] : 1960 64 From: Elvis Gonzalez DO [...] grossly intact, sensation intact Psych: Cooperative, anxious [facility] Medical History GERD (gastroesophageal reflux disease) [...] On reevaluation, (more content not included)... Normal [facility] Eosinophil percentageOrdered By: Elvis Gonzalez on 06-12-2024 Eosinophils/100 WBC (Bld) 4.3 % 0-5 [facility] Erythrocyte distribution wid th (RBC) [Ratio]Ordered By: Elvis Gonzalez on 06-12-2024 Erythrocyte distribution width (RBC) [Entitic vol] 49.1 fL High 35.1-43.9 [facility] Erythrocyte distribution wid th ratioOrdered By: Elvis Gonzalez on 06-12-2024 Erythrocyte distribution width (RBC) [Ratio] 13.8 % 11.6-14.6 [facility] Estimated glomerular filtrat ion rate (GFR) AmericanOrdered By: Elvis Gonzalez on 06-12-2024 Estimated GFR (MDRD) Amer 101 mL/min >60 [facility] Comment on above: GFR Calc Glomerular filtration rate ( GFR) estimationOrdered By: Elvis Gonzalez on 06-12-2024 Estimated GFR (MDRD) Non-Af Amer 84 mL/min >60 [facility] Comment on above: Non- GFR Calc Glucose measurementOrdered B y: Elvis CastroOctavia on 06-12-2024 Glucose [Mass/Vol] 88 mg/dL 74-106 [facility] Hematocrit Auto (Bld) [Volum e fraction]Ordered By: Elvismelanie Gonzalez on 06-12-2024 Hematocrit (Bld) [Volume fraction] 43.5 % 40-54 [facility] Hemoglobin measurementOrdere d By: [facility] CenterSaadFrederick on 06-12-2024 Hemoglobin (Bld) [Mass/Vol] 15.0 g/dL 13.0-16.5 [facility] Immature granulocytes/100 WB C Auto (Bld)Ordered By: [facility] CenterSaadFrederick on 06-12-2024 Immature granulocytes/100 WBC (Bld) 0.400 % 0.0-0.9 [facility] Comment on above: IG% - Immature Granu locytes (promyelocytes, myelocytes and metamyelocytes) > 1% indicates that a LEFT SHIFT is Present. International normalized rat io (INR) calculationOrdered By: Elvismelanie Gonzalez on 06-12-2024 INR Coag (Bld) [Relative time] 0.9 {INR} [facility] L501.4020on 06-12-2024 TROPONIN-I HS 20 pg/mL Normal 3.0-78.0 [facility] Comment on above: Result Comment: Brie steve Note: New Test Units and Gender Specific Reference Ranges. For more information see Policy Stat Procedure [place] High Sensitivity Troponin (TNIH) and attachments. Performed By: #### L 501.4020 ####[facility] [address] [place], [address] L501.5425on 06-12-2024 TROPONIN-I HS 18 pg/mL Normal 3.0-78.0 [facility] Comment on above: Order Comment: 1Y Result Comment: Brie steve Note: New Test Units and Gender Specific Reference Ranges. For more information see Policy Stat Procedure [place] High Sensitivity Troponin (TNIH) and attachments. Performed By: #### L 501.5425, L501.2450, L500.4050 ####[facility] [address] [place], [place], [address] Laboratory - Chemistry and C hemistry - challengeOrdered By: Elvis Gonzalez on 06-12-2024 AST [Catalytic activity/Vol] 15 U/L 15-37 [facility] Lipaseon 06-12-2024 Lipase [Catalytic activity/Vol] 21 U/L Normal 13-75 [facility] Comment on above: Order Comment: 1Y Result Comment: Brie steve note: LIPASE revised reference range effective 22. New Lipase methodology. Expected to produce lower values than the previous assay method. NEW Reference Range: 13 - 75 U/L Performed By: #### L 501.5425, L501.2450, L500.4050 ####[facility] [address] [place], [place], [address] Lipase measurementOrdered By : Elvis Gonzalez on 06-12-2024 Lipase [Catalytic activity/Vol] 21 U/L 13-75 [facility] Comment on above: Please note:LIPASE r evised reference range effective 22. New Lipase methodology. Expected to produce lower values than the previous assay method. NEW Reference Range: 13 - 75 U/L Lymphocytes Auto (Unsp spec) [#/Vol]Ordered By: Elvis Gonzalez on 06-12-2024 Lymphocytes (Bld) [#/Vol] 2.06 10*3/uL 0.83-4.51 [facility] Lymphocytes/100 WBC Auto (Un sp spec)Ordered By: Elvis Gonzalez on 06-12-2024 Lymphocytes/100 WBC (Bld) 24.2 % 19-41 [facility] MCV (mean corpuscular volume ) determinationOrdered By: Elvis Gonzalez on 06-12-2024 MCV (RBC) [Entitic vol] 96.0 fL High 80-94 [facility] Mean corpuscular hemoglobin (MCH) determinationOrdered By: Elvis Gonzalez on 06-12-2024 MCH (RBC) [Entitic mass] 33.1 pg High 27.0-32.0 [facility] Mean corpuscular hemoglobin concentration (MCHC) determinationOrdered By: Elvis Gonzalez on 06-12-2024 MCHC (RBC) [Mass/Vol] 34.5 g/dL 32-36 [facility] Mean platelet volume determi nationOrdered By: Elvis Gonzalez on 06-12-2024 Platelet mean volume (Bld) [Entitic vol] 10.2 fL 6.2-12.0 [facility] Monocyte percentageOrdered B y: Elvis Gonzalez on 06-12-2024 Monocytes/100 WBC (Bld) 8.9 % 0-10 [facility] Neutrophil percentageOrdered By: Elvis Gonzalez on 06-12-2024 Neutrophils/100 WBC (Bld) 61.6 % 47-70 [facility] Nucleated red blood cell per centageOrdered By: [place] Lisa on 06-12-2024 Nucleated RBC/100 WBC (Bld) [Ratio] 0 % 0-5 [facility] Partial Thromboplast Timeon 06-12-2024 aPTT Coag (Bld) [Time] 21.5 s Low 24.1-36.2 [facility] Comment on above: Performed By: #### L 300.4310, L300.3900, L100.0100, L300.8000, L503.6620 #### [facility] [address] [place] [address]. [place], [address] Platelet countOrdered By: Jde iejerry Gonzalez on 06-12-2024 Platelets (Bld) [#/Vol] 204 10*3/uL 150-450 [facility] Potassium measurementOrdered By: Elvis Gonzalez on 06-12-2024 Potassium [Moles/Vol] 3.7 mmol/L 3.5-5.1 [facility] Prothrombin Time w/INRon INR Coag (PPP) [Relative time] 0.9 {INR} Normal [facility] Comment on above: Performed By: #### L 300.4310, L300.3900, L100.0100, L300.8000, L503.6620 #### [facility] [address] [place], [address] PT Coag (PPP) [Time] 12.5 s Normal 11.7-14.9 [facility] Comment on above: Performed By: #### L 300.4310, L300.3900, L100.0100, L300.8000, L503.6620 #### [facility] [address] [place], [address] Prothrombin timeOrdered By: Elvis Gonzalez on 06-12-2024 PT Coag (PPP) [Time] 12.5 s 11.7-14.9 [facility] RBC Auto (Bld) [#/Vol]Ordere d By: Elvis Gonzalez on 06-12-2024 RBC (Bld) [#/Vol] 4.53 10*6/uL Low 4.6-6.2 [facility] Serum anion gap measurementO rdered By: Elvis Gonzalez on 06-12-2024 Anion gap [Moles/Vol] 4 mmol/L Low 5-15 [facility] Serum globulin measurementOr dered By: Elvis Gonzalez on 06-12-2024 Globulin (S) [Mass/Vol] 3.5 g/dL 2.2-4.2 [facility] Serum or plasma alanine best otransferase (ALT) measurementOrdered By: Elvis Gonzalez on 06-12-2024 ALT [Catalytic activity/Vol] 25 U/L 16-61 [facility] Serum or plasma albumin leonardo urement (mass/volume)Ordered By: Elvis Mack on 06-12-2024 Albumin [Mass/Vol] 3.4 g/dL 3.2-5.0 [facility] Serum or plasma alkaline rhina sphatase measurementOrdered By: Elvis Gonzalez on 06-12-2024 ALP [Catalytic activity/Vol] 81 U/L 45-117 [facility] Serum or plasma calcium leonardo urement (mass/volume)Ordered By: Elvis Mack on 06-12-2024 Calcium [Mass/Vol] 8.9 mg/dL 8.5-10.1 [facility] Serum or plasma creatinine m easurement (mass/volume)Ordered By: Elvis Mack on 06-12-2024 Creatinine [Mass/Vol] 0.95 mg/dL 0.70-1.30 [facility] Comment on above: The validity of the calculated GFR & GFRAA in patients over 70 years has not been determined. Clinical correlation is essential. Serum or plasma urea nitroge n measurement (mass/volume)Ordered By: Elvis Gonzalez on 06-12-2024 Urea nitrogen [Mass/Vol] 14 mg/dL 7-18 [facility] Sodium levelOrdered By: Agustin Gonzalez on 06-12-2024 Sodium [Moles/Vol] 139 mmol/L 136-145 [facility] Total proteinOrdered By: Shaheen Gonzalez on 06-12-2024 Protein [Mass/Vol] 6.9 g/dL 6.4-8.2 [facility] Troponin IOrdered By: Elvis Gonzalez on 06-12-2024 Troponin I High Sensitivity 20 pg/mL 3.0-78.0 [facility] Comment on above: Please Note: New Denice t Units and Gender Specific Reference Ranges. For more information see Policy Stat Procedure [place] High Sensitivity Troponin (TNIH) and attachments. White blood cell (WBC) count Ordered By: Elvis Gonzalez on 06-12-2024 WBC (Bld) [#/Vol] 8.5 10*3/uL 4.4-11.0 [facility] aPTT Coag (PPP) [Time]Ordere d By: Elvis Gonzalez on 06-12-2024 aPTT Coag (Bld) [Time] 21.5 s Low 24.1-36.2 [facility] Absolute lymphocyte countOrd ered By: Dulce Phillips on 02-26-2023 Lymphocytes Auto (Unsp spec) [#/Vol] 1.48 10*3/uL 0.83-4.51 [facility] Basophil percentageOrdered B y: Dulce Phillips on 02-26-2023 Basophils/100 WBC (Bld) 0.9 % 0-1 [facility] Bilirubin [Mass/Vol] 0.40 mg/dL 0.20-1.00 [facility] Comment on above: For patients on eltr ombopag therapy, use of Dimension [place] TBIL is not recommended. Chloride [Moles/Vol] 105 mmol/L 98-107 [facility] Eosinophils/100 WBC (Bld) 4.9 % 0-5 [facility] Glucose [Mass/Vol] 97 mg/dL 74-106 [facility] Neutrophils (Bld) [#/Vol] 4.1 10*3/uL 2.0-7.7 [facility] Neutrophils/100 WBC (Bld) 63.0 % 47-70 [facility] Potassium [Moles/Vol] 3.3 mmol/L 3.5-5.1 [facility] Protein [Mass/Vol] 7.1 g/dL 6.4-8.2 [facility] Sodium [Moles/Vol] 139 mmol/L 136-145 [facility] WBC (Bld) [#/Vol] 6.5 10*3/uL 4.4-11.0 [facility] Blood erythrocytes count (nu mber/volume)Ordered By: Dulce Phillips on 02-26-2023 RBC (Bld) [#/Vol] 4.72 10*6/uL 4.6-6.2 [facility] Blood hemoglobin measurement (mass/volume)Ordered By: Dulce Phillips on 02-26-2023 Hemoglobin (Bld) [Mass/Vol] 15.4 g/dL 13.0-16.5 [facility] Blood lymphocytes/100 leukoc ytesOrdered By: Dulce Phillips on 02-26-2023 Lymphocytes/100 WBC (Bld) 22.8 % 19-41 [facility] Blood monocytes/100 leukocyt esOrdered By: Dulce Phillips on 02-26-2023 Monocytes/100 WBC (Bld) 7.9 % 0-10 [facility] Blood platelet mean volumeOr dered By: Dulce Phillips on 02-26-2023 Platelet mean volume (Bld) [Entitic vol] 9.8 fL 6.2-12.0 [facility] Determination of erythrocyte mean corpuscular volume (MCV)Ordered By: Dulce Phillips on 02-26-2023 MCV (RBC) [Entitic vol] 100.0 fL 80-94 [facility] Hematocrit Auto (Bld) [Volum e fraction]Ordered By: Dulce Phillips on 02-26-2023 Hematocrit (Bld) [Volume fraction] 47.2 % 40-54 [facility] Laboratory - Chemistry and C hemistry - challengeOrdered By: Dulce Phillips on 02-26-2023 ALP [Catalytic activity/Vol] 105 U/L 45-117 [facility] ALT [Catalytic activity/Vol] 43 U/L 16-61 [facility] CO2 [Moles/Vol] 28.0 mmol/L 21.0-32.0 [facility] Cobalamin (Vitamin B12) [Mass/Vol] 799 pg/mL 211-911 [facility] Globulin (S) [Mass/Vol] 3.6 g/dL 2.2-4.2 [facility] Magnesium [Mass/Vol] 2.5 mg/dL 1.6-2.6 [facility] Urea nitrogen/Creatinine [Mass ratio] 19.5 mg/mg 10-20 [facility] Laboratory - Hematology and Cell countsOrdered By: Dulce Phillips on 02-26-2023 Erythrocyte distribution width (RBC) [Entitic vol] 50.6 fL 35.1-43.9 [facility] Erythrocyte distribution width (RBC) [Ratio] 13.7 % 11.6-14.6 [facility] Immature granulocytes/100 WBC (Bld) 0.500 % 0.0-0.9 [facility] Comment on above: IG% - Immature Granu locytes (promyelocytes, myelocytes and metamyelocytes) > 1% indicates that a LEFT SHIFT is Present. MCH (RBC) [Entitic mass] 32.6 pg 27.0-32.0 [facility] Nucleated RBC/100 WBC (Bld) [Ratio] 0 % 0-5 [facility] MCHC Auto (RBC) [Mass/Vol]Or dered By: Dulce Phillips on 02-26-2023 MCHC (RBC) [Mass/Vol] 32.6 g/dL 32-36 [facility] No Panel InformationOrdered By: Dulce Phillips on 02-26-2023 Estimated GFR (MDRD) Amer 121 mL/min >60 [facility] Comment on above: GFR Calc Estimated GFR (MDRD) Non-Af Amer 100 mL/min >60 [facility] Comment on above: Non- GFR Calc Thyroid Stimulating Hormone (TSH) 1.99 uIU/mL 0.358-3.74 [facility] Vitamin D 25-Hydroxy 31.7 ng/mL [facility] Comment on above: Vitamin D 25(OH) Sta tus Range Deficiency <20 ng/mL (50nmol/L) Insufficiency 20 - 30 ng/mL (50 - 75 nmol/L) Sufficiency 30 - 100 ng/mL (75 - 250 nmol/L) Toxicity >100 ng/mL (>250 nmol/L) Platelets bldOrdered By: Haley Phillips on 02-26-2023 Platelets (Bld) [#/Vol] 338 10*3/uL 150-450 [facility] Serum or plasma albumin leonardo urement (mass/volume)Ordered By: Dulce Phillips on 02-26-2023 Albumin [Mass/Vol] 3.5 g/dL 3.2-5.0 [facility] Serum or plasma albumin/glob ulin mass ratioOrdered By: Dulce Phillips on 02-26-2023 Albumin/Globulin [Mass ratio] 1.0 {ratio} 0.9-2.4 [facility] Serum or plasma calcium leonardo urement (mass/volume)Ordered By: Dulce Phillips on 02-26-2023 Calcium [Mass/Vol] 8.5 mg/dL 8.5-10.1 [facility] Serum or plasma creatinine m easurement (mass/volume)Ordered By: Dulce Phillips on 02-26-2023 Creatinine [Mass/Vol] 0.82 mg/dL 0.70-1.30 [facility] Comment on above: The validity of the calculated GFR & GFRAA in patients over 70 years has not been determined. Clinical correlation is essential. Serum or plasma ferritin fozia surement (mass/volume)Ordered By: Dulce Phillips on 02-26-2023 Ferritin [Mass/Vol] 159 ng/mL 26-388 [facility] Serum or plasma folate measu rement (mass/volume)Ordered By: Dulce Phillips on 02-26-2023 Folate [Mass/Vol] 10.10 ng/mL 3.1-55.4 [facility] Serum or plasma urea nitroge n measurement (mass/volume)Ordered By: Dulce Phillips on 02-26-2023 Urea nitrogen [Mass/Vol] 16 mg/dL 7-18 [facility] Thin prep Papanicolaou smear with manual screeningOrdered By: Dulce Phillips on 02-26-2023 Thin prep Papanicolaou smear with manual screening 17 U/L 15-37 [facility] Thin prep Papanicolaou smear with manual screening 6 5-15 [facility] Whole blood hemoglobin A1c/t otal hemoglobin ratio (mass fraction)Ordered By: Dulce Phillips on 02-26-2023 HbA1c (Bld) [Mass fraction] 5.4 % 3.8-5.6 [facility] Comment on above: Normal < 5.7 % Predi abetic 5.7 - 6.4 % Diabetic >or= 6.5 % Please note range changes. Absolute lymphocyte countOrd ered By: Charan Martinez on 11-27-2022 Lymphocytes Auto (Unsp spec) [#/Vol] 1.36 10*3/uL 0.83-4.51 [facility] Basophil percentageOrdered B y: Charan Martinez on 11-27-2022 Basophil percentage 2.6 mg/dL 2.5-4.9 [facility] Basophils/100 WBC (Bld) 0.8 % 0-1 [facility] Bilirubin [Mass/Vol] 0.50 mg/dL 0.20-1.00 [facility] Comment on above: For patients on eltr ombopag therapy, use of Dimension [place] TBIL is not recommended. Chloride [Moles/Vol] 111 mmol/L 98-107 [facility] Cholesterol [Mass/Vol] 201 mg/dL <200 [facility] Comment on above: <200 mg/dL Desirable 200-240 mg/dL Borderline >240 mg/dL High Risk Eosinophils/100 WBC (Bld) 3.7 % 0-5 [facility] Glucose [Mass/Vol] 93 mg/dL 74-106 [facility] Neutrophils (Bld) [#/Vol] 4.3 10*3/uL 2.0-7.7 [facility] Neutrophils/100 WBC (Bld) 66.4 % 47-70 [facility] Potassium [Moles/Vol] 3.7 mmol/L 3.5-5.1 [facility] Protein [Mass/Vol] 5.6 g/dL 6.4-8.2 [facility] Sodium [Moles/Vol] 139 mmol/L 136-145 [facility] Triglyceride [Mass/Vol] 116 mg/dL <199 [facility] Comment on above: The drugs N-Acetylcy steine and Metamizole may falsely depress this assay.Serum Triglycerides Reference Interval Normal <150 mg/dL Borderline high 150 - 199 mg/dL High 200 - 499 mg/dL Very High > or = 500 mg/dL WBC (Bld) [#/Vol] 6.5 10*3/uL 4.4-11.0 [facility] Blood erythrocytes count (nu mber/volume)Ordered By: Charan Martinez on 11-27-2022 RBC (Bld) [#/Vol] 4.30 10*6/uL 4.6-6.2 [facility] Blood hemoglobin measurement (mass/volume)Ordered By: Charan Martinez on 11-27-2022 Hemoglobin (Bld) [Mass/Vol] 14.1 g/dL 13.0-16.5 [facility] Blood lymphocytes/100 leukoc ytesOrdered By: Charan Martinez on 11-27-2022 Lymphocytes/100 WBC (Bld) 20.8 % 19-41 [facility] Blood monocytes/100 leukocyt esOrdered By: Charan Martinez on 11-27-2022 Monocytes/100 WBC (Bld) 8.0 % 0-10 [facility] Blood platelet mean volumeOr dered By: Charan Martinez on 11-27-2022 Platelet mean volume (Bld) [Entitic vol] 9.6 fL 6.2-12.0 [facility] Determination of erythrocyte mean corpuscular volume (MCV)Ordered By: Charan Martinez on 11-27-2022 MCV (RBC) [Entitic vol] 96.7 fL 80-94 [facility] Hematocrit Auto (Bld) [Volum e fraction]Ordered By: Charan Martinez on 11-27-2022 Hematocrit (Bld) [Volume fraction] 41.6 % 40-54 [facility] Laboratory - Chemistry and C hemistry - challengeOrdered By: Charan Martinez on 11-27-2022 ALP [Catalytic activity/Vol] 59 U/L 45-117 [facility] ALT [Catalytic activity/Vol] 16 U/L 16-61 [facility] CO2 [Moles/Vol] 25.0 mmol/L 21.0-32.0 [facility] Globulin (S) [Mass/Vol] 2.8 g/dL 2.2-4.2 [facility] Magnesium [Mass/Vol] 2.1 mg/dL 1.6-2.6 [facility] Urea nitrogen/Creatinine [Mass ratio] 19.4 mg/mg 10-20 [facility] Laboratory - Hematology and Cell countsOrdered By: Charan Martinez on 11-27-2022 Erythrocyte distribution width (RBC) [Entitic vol] 48.3 fL 35.1-43.9 [facility] Erythrocyte distribution width (RBC) [Ratio] 13.5 % 11.6-14.6 [facility] Immature granulocytes/100 WBC (Bld) 0.300 % 0.0-0.9 [facility] Comment on above: IG% - Immature Granu locytes (promyelocytes, myelocytes and metamyelocytes) > 1% indicates that a LEFT SHIFT is Present. MCH (RBC) [Entitic mass] 32.8 pg 27.0-32.0 [facility] Nucleated RBC/100 WBC (Bld) [Ratio] 0 % 0-5 [facility] MCHC Auto (RBC) [Mass/Vol]Or dered By: Charan Martinez on 11-27-2022 MCHC (RBC) [Mass/Vol] 33.9 g/dL 32-36 [facility] No Panel InformationOrdered By: Charan Martinez on 11-27-2022 Estimated Creatinine Clearance Calc 83.01 ml/min [facility] Estimated GFR (MDRD) Amer 113 mL/min >60 [facility] Comment on above: GFR Calc Estimated GFR (MDRD) Non-Af Amer 93 mL/min >60 [facility] Comment on above: Non- GFR Calc Thyroid Stimulating Hormone (TSH) 2.62 uIU/mL 0.358-3.74 [facility] Platelets bldOrdered By: Peter Martinez on 11-27-2022 Platelets (Bld) [#/Vol] 239 10*3/uL 150-450 [facility] Serum or plasma albumin leonardo urement (mass/volume)Ordered By: Charan Martinez on 11-27-2022 Albumin [Mass/Vol] 2.8 g/dL 3.2-5.0 [facility] Serum or plasma albumin/glob ulin mass ratioOrdered By: Charan Martinez on 11-27-2022 Albumin/Globulin [Mass ratio] 1.0 {ratio} 0.9-2.4 [facility] Serum or plasma calcium leonardo urement (mass/volume)Ordered By: Charan Martinez on 11-27-2022 Calcium [Mass/Vol] 8.1 mg/dL 8.5-10.1 [facility] Serum or plasma cholesterol in HDL measurement (mass/volume)Ordered By: Charan Martinez on 11-27-2022 Cholesterol in HDL [Mass/Vol] 36 mg/dL >40 [facility] Comment on above: The drugs N-Acetylcy steine and Metamizole may falsely depress this assay. Reference Range HDL <40 mg/dL Low HDL Cholesterol HDL >or= 60 mg/dL High HDL Cholesterol Serum or plasma cholesterol in VLDL measurement (mass/volume)Ordered By: Charan Martinez on 11-27-2022 Cholesterol in VLDL [Mass/Vol] 23 mg/dL 5-40 [facility] Serum or plasma creatinine m easurement (mass/volume)Ordered By: Charan Martinez on 11-27-2022 Creatinine [Mass/Vol] 0.88 mg/dL 0.70-1.30 [facility] Comment on above: The validity of the calculated GFR & GFRAA in patients over 70 years has not been determined. Clinical correlation is essential. Serum or plasma low density lipoprotein (LDL) cholesterol measurement (mass/volume)Ordered By: Charan Martinez on 11-27-2022 Cholesterol in LDL [Mass/Vol] 142 mg/dL 0-130 [facility] Serum or plasma urea nitroge n measurement (mass/volume)Ordered By: Charan Martinez on 11-27-2022 Urea nitrogen [Mass/Vol] 17 mg/dL 7-18 [facility] Thin prep Papanicolaou smear with manual screeningOrdered By: Charan Martinez on 11-27-2022 Thin prep Papanicolaou smear with manual screening 9 U/L 15-37 [facility] Thin prep Papanicolaou smear with manual screening 3 5-15 [facility] Whole blood hemoglobin A1c/t otal hemoglobin ratio (mass fraction)Ordered By: Charan Martinez on 11-27-2022 HbA1c (Bld) [Mass fraction] 5.4 % 3.8-5.6 [facility] Comment on above: Normal < 5.7 % Predi abetic 5.7 - 6.4 % Diabetic >or= 6.5 % Please note range changes. Blood platelet adequacy dete ction by light microscopyOrdered By: Noé Vasquez on 11-26-2022 Platelets LM Ql (Bld) ADEQUATE ADEQ [facility] INR in Blood by Coagulation assayOrdered By: Noé Vasquez on 11-26-2022 INR Coag (Bld) [Relative time] 1.1 {INR} [facility] Laboratory - CoagulationOrde red By: Noé Vasquez on 11-26-2022 aPTT Coag (Bld) [Time] 28.9 s 24.1-36.2 [facility] PT Coag (PPP) [Time] 14.0 s 11.7-14.9 [facility] No Panel InformationOrdered By: oNé Vasquez on 11-26-2022 Troponin I High Sensitivity 7 pg/mL 3.0-78.0 [facility] Comment on above: Please Note: New Denice t Units and Gender Specific Reference Ranges. For more information see Policy Stat Procedure [place] High Sensitivity Troponin (TNIH) and attachments. Vital Signs Date Time Vital Sign Value Performing Clinician Facility 02-28-2025 13:25-0400 Body height 173 cm Tania Winchester MD Work Phone: [facility] 02-28-2025 13:25-0400 Body height 173.35 cm Tania Winchester MD Work Phone: [facility] 02-28-2025 13:25-0400 Body mass index (BMI) [Ratio] 23.48 kg/m2 Tania Winchester MD Work Phone: [facility] 02-28-2025 13:25-0400 Body weight 70 kg Tania Winchester MD Work Phone: [facility] 02-28-2025 13:25-0400 Body weight 70.31 kg Tania Winchester MD Work Phone: [facility] 02-28-2025 13:25-0400 BP SITE #1 Tania Winchester MD Work Phone: [facility] 02-28-2025 13:25-0400 BP SITE #2 Tania Winchester MD Work Phone: [facility] 02-28-2025 13:25-0400 Diastolic blood pressure 83 mm[Hg] Tania Winchester MD Work Phone: [facility] 02-28-2025 13:25-0400 Diastolic blood pressure 80 mm[Hg] Tania Winchester MD Work Phone: [facility] 02-28-2025 13:25-0400 Heart rate 60 /min Tania Winchester MD Work Phone: [facility] 02-28-2025 13:25-0400 HGHTCHNVIS Tania Winchester MD Work Phone: [facility] 02-28-2025 13:25-0400 Systolic blood pressure 162 mm[Hg] Tania Winchester MD Work Phone: [facility] 02-28-2025 13:25-0400 Systolic blood pressure 171 mm[Hg] Tania Winchester MD Work Phone: [facility] 02-28-2025 13:25-0400 VITALSDONE Tania Winchester MD Work Phone: [facility] 01-19-2025 17:00-0400 Body mass index (BMI) [Ratio] 22 kg/m2 Anne Arellano MD Work Phone: [facility] 01-19-2025 14:00-0400 Diastolic blood pressure 87 mm[Hg] Anne Arellano MD Work Phone: [facility] 01-19-2025 14:00-0400 Heart rate 64 /min Anen Arellano MD Work Phone: [facility] 01-19-2025 14:00-0400 Respiratory rate 18 /min Anne Arellano MD Work Phone: [facility] 01-19-2025 14:00-0400 SaO2% (BldA) [Mass fraction] 100 % Anne Arellano MD Work Phone: [facility] 01-19-2025 14:00-0400 Systolic blood pressure 154 mm[Hg] Anne Arellano MD Work Phone: [facility] 01-19-2025 10:28-0400 Body height 175.26 cm Anne Arellano MD Work Phone: [facility] 01-19-2025 10:28-0400 Body weight 67.7 kg Anne Arellano MD Work Phone: [facility] 01-19-2025 09:34-0400 Body temperature 98.2 [degF] Anne Arellano MD Work Phone: [facility] 01-18-2025 18:29-0400 Body temperature 98.1 [degF] Anne Arellano MD Work Phone: [facility] 01-18-2025 18:29-0400 Diastolic blood pressure 80 mm[Hg] Anne Arellano MD Work Phone: [facility] 01-18-2025 18:29-0400 Heart rate 67 /min Anne Arellano MD Work Phone: [facility] 01-18-2025 18:29-0400 Respiratory rate 23 /min Anne Arellano MD Work Phone: [phone] [place] [address] 01-18-2025 18:29-0400 SaO2% (BldA) [Mass fraction] 95 % Anne Arellano MD Work Phone: 2(521)[phone] [place] [address] 01-18-2025 18:29-0400 Systolic blood pressure 158 mm[Hg] Anne Arellano MD Work Phone: [phone])[phone] [place] [address] 01-18-2025 17:48-0400 Body height 175.26 cm Anne Arellano MD Work Phone: [phone] [address] 01-18-2025 17:48-0400 Body mass index (BMI) [Ratio] 22.8 kg/m2 Anne Arellano MD Work Phone: [phone] [place] [address] 01-18-2025 17:48-0400 Body weight 70 kg Anne Arellano MD Work Phone: [facility] 06-12-2024 22:20-0500 Body temperature 98.3 [degF] Anne Arellano MD Work Phone: [facility] 06-12-2024 22:20-0500 Diastolic blood pressure 76 mm[Hg] Anne Arellano MD Work Phone: [facility] 06-12-2024 22:20-0500 Heart rate 75 /min Anne Arellano MD Work Phone: [facility] 06-12-2024 22:20-0500 Respiratory rate 18 /min Anne Arellano MD Work Phone: [facility] 06-12-2024 22:20-0500 SaO2% (BldA) [Mass fraction] 96 % Anne Arellano MD Work Phone: [facility] 06-12-2024 22:20-0500 Systolic blood pressure 147 mm[Hg] Anne Arellano MD Work Phone: [facility] 06-12-2024 19:31-0500 Body mass index (BMI) [Ratio] 24.7 kg/m2 Anne Arellano MD Work Phone: [facility] 06-12-2024 19:31-0500 Body weight 76 kg Anne Arellano MD Work Phone: [facility] 06-12-2024 18:32-0500 Body height 175.26 cm Anne Arellano MD Work Phone: [facility] 06-01-2023 10:34-0500 Diastolic Blood Pressure Non-Invasive 74 mm[Hg] DR CHASIDY LAURENT MD [facility] 06-01-2023 10:34-0500 Heart rate 69 /min DR CHASIDY LAURENT MD [facility] 06-01-2023 10:34-0500 Respiratory rate 17 /min DR CHASIDY LAURENT MD [facility] 06-01-2023 10:34-0500 Systolic Blood Pressure Non-Invasive 135 mm[Hg] DR CHASIDY LAURENT MD [facility] 06-01-2023 10:23-0500 Heart rate 68 /min DR CHASIDY LAURENT MD [facility] 06-01-2023 10:23-0500 Respiratory rate 18 /min DR CHASIDY LAURENT MD [facility] 06-01-2023 10:16-0500 Diastolic Blood Pressure Non-Invasive 72 mm[Hg] DR CHASIDY LAURENT MD [facility] 06-01-2023 10:16-0500 Heart rate 74 /min DR CHASIDY LAURENT MD [facility] 06-01-2023 10:16-0500 Respiratory rate 17 /min DR CHASIDY LAURENT MD [facility] 06-01-2023 10:16-0500 Systolic Blood Pressure Non-Invasive 120 mm[Hg] DR CHASIDY LAURENT MD [facility] 06-01-2023 10:07-0500 Body temperature 96.62 [degF] DR CHASIDY LAURENT MD [facility] 06-01-2023 10:07-0500 Diastolic Blood Pressure Non-Invasive 77 mm[Hg] DR CHASIDY LAURENT MD [facility] 06-01-2023 10:07-0500 Systolic Blood Pressure Non-Invasive 116 mm[Hg] DR CHASIDY LAURENT MD [facility] 06-01-2023 10:05-0500 Respiratory Rate - Anes 5 br/min DR CHASIDY LAURENT MD [facility] 06-01-2023 10:00-0500 Respiratory Rate - Anes 23 br/min DR CHASIDY LAURENT MD [facility] 06-01-2023 08:34-0500 Body height 172.[address] CHASIDY LAURENT MD [facility] 06-01-2023 08:34-0500 Body temperature 98.24 [degF] DR CHASIDY LAURENT MD [facility] 06-01-2023 08:34-0500 Body weight [address] CHASIDY LAURENT MD [facility] 06-01-2023 08:34-0500 Heart rate 72 /min DR CHASIDY LAURENT MD [facility] 11-28-2022 12:06-0400 Body temperature 97.9 [degF] No Primary Care Physician [facility] 11-28-2022 12:06-0400 Diastolic blood pressure 78 mm[Hg] No Primary Care Physician [facility] 11-28-2022 12:06-0400 Heart rate 51 /min No Primary Care Physician [facility] 11-28-2022 12:06-0400 Respiratory rate 17 /min No Primary Care Physician [facility] 11-28-2022 12:06-0400 SaO2% (BldA) [Mass fraction] 98 % No Primary Care Physician [facility] 11-28-2022 12:06-0400 Systolic blood pressure 146 mm[Hg] No Primary Care Physician [facility] 11-28-2022 12:00-0400 Body mass index (BMI) [Ratio] 22.5 kg/m2 No Primary Care Physician [facility] 11-27-2022 11:35-0400 Body height 175.26 cm No Primary Care Physician [facility] 11-27-2022 11:35-0400 Body weight 69 kg No Primary Care Physician [facility] Encounters Encounter Date Encounter Type Care Provider Facility Start: 03-24-2025 ambulatory [facility] Facility:[facility] Start: 03-08-2025 End: 03-08-2025 ambulatory [facility] Facility:[facility] Start: 02-28-2025 Visit out of hours Tania marks MD Work Phone: [employer] Work Phone: Start: 02-28-2025 In-person encounter Tania kenny MD Work Phone: [employer] [facility] Work Phone: Start: 01-31-2025 ambulatory Marky Jimenez y:[facility] Start: 01-19-2025 Non-patient / Non-visit Dr. Marky Lund DO -[facility] Work Phone: Start: 01-19-2025 ambulatory Anne Adan Facility:[facility] Start: 01-19-2025 Non-patient / Non-visit Dr. Rafia Reyes MD -[facility] Start: 01-18-2025 ambulatory Yris Rao Facility:[facility] Start: 01-18-2025 End: 01-19-2025 Evaluation and management of inpatient Dr. Yris Rao MD -[facility] Work Phone: Start: 01-17-2025 End: 01-17-2025 ambulatory Anne Arellano MD Work Phone: [facility] [place] Start: 01-17-2025 End: 01-17-[address] Anne Arellano MD -[facility] [place] Work Phone: Start: 01-17-2025 End: 01-17-2025 ambulatory Anne Arellano Facility:[facility] Start: 08-26-2024 End: 08-26-2024 ambulatory Anne Arellano MD Work Phone: [facility] Work Phone: Start: 08-26-2024 End: 08-26-2024 Patient encounter procedure Tae Zuleyka [employer]C -Laboratory, [facility] Start: 08-26-2024 End: 08-26-2024 ambulatory Anne Adan Facility:[facility] Start: 08-23-2024 End: 08-23-2024 ambulatory Anne Arellano MD Work Phone: [facility] Work Phone: Start: 08-23-2024 End: 08-23-2024 Patient encounter procedure Oliver Dang DO -[facility] Work Phone: Start: 08-23-2024 End: 08-23-2024 ambulatory Oliver Dang Facility:[facility] Start: 07-20-2024 End: 07-20-2024 Patient encounter procedure Oliver Alton [facility] Work Phone: Start: 07-20-2024 End: 07-20-2024 ambulatory Oliver Dang Facility:[facility] Start: 06-12-2024 End: 06-12-2024 Emergency department patient visit Dr. Elvis Gonzalez DO -Emergency Department Work Phone: Start: 06-01-2023 End: 06-01-[address] CHASIDY LAURENT MD Facility:[facility] Start: 06-01-2023 End: 06-01-[address] CHASIDY LAURENT MD [facility] Start: 02-26-2023 End: 02-26-2023 ambulatory No Primary Care Physician [facility] Work Phone: Start: 02-26-2023 End: 02-26-2023 Patient encounter procedure No Primary Care Physician [facility] Start: 11-28-2022 Non-patient / Non-visit No Primary Care Physician [facility] Work Phone: Start: 11-27-2022 End: 11-28-2022 Evaluation and management of inpatient No Primary Care Physician [facility]-Progressive Care Unit Work Phone: Start: 11-27-2022 Non-patient / Non-visit No Primary Care Physician [facility] Start: 11-26-2022 Non-patient / Non-visit No Primary Care Physician [facility] Work Phone: Procedures Date Procedure [...] Author Start: 02-28-2025 EMG/NCT left upper extremity [facility] Work Phone: Start: 02-28-2025 Radex hand minimum 3 views [employer] Work Phone: Start: 01-19-2025 Patient discharge [facility] Start: 01-18-2025 Application of intermittent pneumatic compression device [facility] Start: 01-18-2025 Aspiration precautions [facility] Start: 01-18-2025 Cardiac monitoring [facility] Start: 01-18-2025 Catheterization of vein [facility] Start: 01-18-2025 Consultation [facility] Start: 01-18-2025 Continuous pulse oximetry [facility] Start: 01-18-2025 Elevation of head of bed [facility] Start: 01-18-2025 Exercises [facility] Start: 01-18-2025 Notification of physician [facility] Start: 01-18-2025 Oxygen therapy [facility] Start: 01-18-2025 Patient referral to dietitian [facility] Start: 01-18-2025 Referral to occupational therapist [facility] Start: 01-18-2025 Referral to service [facility] Start: 01-18-2025 Speech therapy assessment [facility] Start: 01-18-2025 Telemedicine consultation with patient [facility] Start: 01-18-2025 Tobacco use cessation education [facility] Start: 01-18-2025 Vital signs measurements [facility] Start: 01-18-2025 Assessment of risk of venous thromboembolism [facility] Start: 01-18-2025 Insertion of catheter into peripheral vein [facility] Start: 01-18-2025 Measuring intake and output [facility] Start: 01-18-2025 Providing care according to standard [facility] Start: 01-18-2025 End: 01-18-2025 [facility] Start: 01-18-2025 Following clinical pathway protocol [facility] Start: 01-18-2025 Admission procedure [facility] Start: 01-18-2025 Hospital admission, emergency, from emergency room, medical nature [facility] Start: 01-18-2025 [facility] Start: 01-18-2025 Consultation [facility] Start: 01-18-2025 Inhalation therapy procedure [facility] Start: 06-12-2024 [facility] Start: 06-12-2024 [facility] Start: 11-28-2022 Patient discharge [facility] Start: 11-27-2022 Admission procedure [facility] Start: 11-27-2022 Telepractice consultation [facility] Start: 11-26-2022 Following clinical pathway protocol [facility] Start: 11-26-2022 Ambulation without limitation [facility] Start: 11-26-2022 Assessment of risk of venous thromboembolism [facility] Start: 11-26-2022 Cardiac monitoring [facility] Start: 11-26-2022 Catheterization of vein [facility] Start: 11-26-2022 Elevation of head of bed [facility] Start: 11-26-2022 Exercises [facility] Start: 11-26-2022 Implementation of planned interventions [facility] Start: 11-26-2022 Insertion of catheter into peripheral vein [facility] Start: 11-26-2022 Measuring intake and output [facility] Start: 11-26-2022 Notification of physician [facility] Start: 11-26-2022 Oxygen therapy [facility] Start: 11-26-2022 Patient referral to dietitian [facility] Start: 11-26-2022 Providing care according to standard [facility] Start: 11-26-2022 Referral to occupational therapist [facility] Start: 11-26-2022 Referral to service [facility] Start: 11-26-2022 Speech therapy assessment [facility] Start: 11-26-2022 Tobacco use cessation education [facility] Start: 11-26-2022 [facility] Start: 11-26-2022 Admission procedure [facility] Start: 11-26-2022 [facility] Start: 11-26-2022 Patient referral to [facility] Cardiac event recording [facility] Patient Education ED Chest Pain, Uncertain Cause [facility] Work Phone: Patient referral [facility] Work Phone: Troponin T.cardiac [Mass/volume] in Serum or Plasma by High sensitivity method [facility] Troponin T.cardiac [Mass/volume] in Serum or Plasma by High sensitivity method [facility] Immunizations Immunization Date Immunization Notes Care Provider Fa cility 01-17-2021 Covid (NullPointer) No Primary Ca re Physician [facility] [facility] 12-20-2020 Covid (Pfizer) No Primary Ca re Physician [facility] Payers Date Payer Category Payer Medicare [id number] 2024 Self-pay [id number] 2023 Medicare [id number] 255 [id number] 1960 Unknown [id number] 2.16.8 [id number] Unknown [id number] 2.16.8 40.1.701590.3.579.2.462 Unknown [id number] 2.16.8 40.1.449096.3.579.2.462 Unknown [id number] 2.16.8 40.1.772438.3.579.2.462 Unknown [id number] 2.16.8 40.1.005741.3.579.2.462 Unknown [id number] 2.16.8 40.1.723918.3.579.2.462 Unknown [id number] 2.16.8 40.1.684786.3.579.2.462 Unknown [id number] 2.16.8 40.1.480840.3.579.2.462 Unknown [id number] 2.16.8 40.1.808675.3.579.2.462 Unknown [id number] 2.16.8 40.1.839153.3.579.2.462 Unknown [id number] 2.16.8 40.1.028336.3.579.2.462 Unknown [id number] 2.16.8 40.1.121820.3.579.2.462 Unknown [id number] 2.16.8 [id number] Social History Date Type Detail Facility Start: 11-28-2022 End: 02-28-2025 Tobacco smoking status NHIS Unknown if ever smoked [facility] Start: 11-28-2022 Cigarettes [facility] Start: 1960 Sex Assigned At Male [facility] Start: 06-01-2023 End: 01-18-2025 Tobacco smoking status Heavy tobacco smoker (finding) [facility] Start: 07-20-2024 End: 02-28-2025 Tobacco smoking status NHIS Smokes tobacco daily (finding) [facility] Start: 08-26-2024 End: 08-31-2024 Sex Male (finding) [facility] Start: 02-28-2025 social history revie wed E&M Done [employer] Work Phone: Start: 02-28-2025 smoking/tobacco cessation, patient education and counseling Smoking cessation education (procedure) [employer] Work Phone: Goals Date Patient Goal Desired Activity /State Functional Status Date Assessment Result Facility 01-19-2025 Functional status Chair [facility] Work Phone: 06-01-2023 Functional Status Repositions self [facility] 06-01-2023 Functional Status Maintained [facility] 11-28-2022 Functional status Ambulates [facility] Work Phone: Mental Status Date Assessment Result Facility 01-19-2025 Cognitive function Voice/Name [facility] Work Phone: 01-18-2025 Cognitive function Voice/Name [facility] Work Phone: 06-12-2024 Cognitive function Voice/Name [facility] Work Phone: 06-01-2023 Mental Status Orientation Oriented x 4 [facility] 06-01-2023 [facility] 11-28-2022 Cognitive function Voice/Name [facility] Work Phone: Clinical Notes 11-26-2022 to 01-19-2025 Note Date & Type Note Facility 01-19-2025 Discharge summary Note Date/Time January 19, 2025 4:02pm [facility] Medical Records Department [address] [place] [address] Instructions for Home/Discharge Instructions 01/19/25 1516 MR#: [id number] Acct: [id number] Name: CHARAN GARCIA Rep #:[id number] : [...] Recorder Preventi (Routine) Timeframe: 1 Day Facility: [facility] - Location: Cardiovascular Services Ordered By: [...] Thompson DO; Obi Zazueta MD ~ Signed [facility] Work Phone: 1(778) 880-445309-04-2025 Discharge summary [facility] Medical Records Department [address] [place] [address] Instructions for Home/Discharge Instructions 01/19/25 1516 MR#: [id number] Acct: [id number] Name: CHARAN GARCIA Rep #:[id number] : [...] Greta Ward; Aaron Maloney; Aliza Real; Xander eBatty; Bhavana Reyes; Obi Zazueta; Yris Rao Instructions [...] Recorder Preventi (Routine) Timeframe: 1 Day Facility: [facility] - Location: Cardiovascular Services Ordered By: [...] Tiwari MD; Marcos Rogers MD; Dr. Abeba Velsaco MD; Dr. Anne Arellano MD; Dr. Thony [...] Thompson DO; Obi Zazueta MD ~ Signed [facility]09-04-2025 [facility] Medical Records Department [address] [place] [address] Discharge Summary 01/19/25 1602 MR#: [id number] Acct: [id number] Name: CHARAN GARCIA Rep #: [id number] : 1960 64 From: Marky Lund DO PCP: Dr. Anne Arellano MD Status:DIS IN Location: [facility] [id number] Providers Date of Admission: 01/18/25 Date of [...] was seen in the emergency room at [facility] with complaints of acute onset of [...] 87.7 H, Lymph % (Auto) 9.2 L, Oxford % (Auto) 2.7, Eos % (Auto) 0.0, Baso % (Auto) 0.3, Absolute Neuts (auto) 6.2, Absolute Lymphs (auto) 0.65 (more content not included)...[facility]09-04-2025 Consult note Author Xander Beatty [facility] Note Date/Time January 19, 2025 1:55pm [facility] Medical Records Department [address] [place] [address] Consultation - Neurology 01/19/25 1345 MR#: [id number] Acct: [id number] Name: CHARAN GARCIA Rep #:[id number] : 1960 64 From: Xander Beatty MD PCP: Dr. Anne Arellano MD Status:ADM IN Location: [place] [address] Assessment and Plan: Stroke Assessment/Plan CHARAN GARCIA [...] Diabetes Management - NA. A1C is ok,. halfway blood pressure control should achieve <130/80 mmHg. BP managementshould aim to achieve [facility] in a reasonable amount of time, [...] given his age I would recommend YANCI. Substance Addiction Coordinator on discharge. Start with 30 days. IF need to can proceed with LINQ outpatient. - Referral to sleep medicine for sleep apnea testing. Followup with PCP in 1-2 weeks, and in Neurology clinic in 6-12 weeks HPI Consult Data Date of Consult: 01/19/25 HPI Narrative HPI Narrative: CHARAN GARCIA, is a 64 M who presents [facility] Medical History (Updated 01/19/25 @ 13:06 [...] 87.7 H, Lymph % (Auto) 9.2 L, Oxford % (Auto) 2.7, Eos % (Auto) 0.0, [...] % (Auto) 68.4, Lymph % (Auto) 19.7, Oxford% (Auto) 8.5, Eos % (Auto) 2.7, Baso [...] arterial occlusion or significant stenosis. Reading Location: [id number] Head/Neck CTA 01/18/25 17:00 IMPRESSION: 1. 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 2. No acute intracranial hemorrhage/hemorrhagic conversion, or mass-effect. 3. No intracranial or cervical large vessel arterial occlusion or significant stenosis. Reading Location: [id number] Brain MRI 01/19/25 09:00 IMPRESSION: Patchy foci of acute ischemia on the right side. Consider thromboembolic process. See above description. Reading Location: [id number] Active Medications Active Medications Active Medications: Current [...] and with change in RN caregiver. Freq: [id number] Protocol: Activity Type Activity Date Activity User E-sign Co-sign Detail Recorded Client Recorded Date Recorded By Document 01/19/25 10:00 CD [id number] 01/19/25 13:32 CD 01/19/25 10:00 NIH Stroke Scale [NIHSS] A score of 0 is normal or asymptomatic . Total possible score is [...] 2 Query Text:A score of 0 is normal or asymptomatic. Total possible score is 42 [...] applicable): CC: Dr. Anne Arellano MD~ Signed [facility] Work Phone: 1(510) 596-281809-04-2025 History and physical note Author Yris Rao [facility] Note Date/Time January 19, 2025 1:06pm [facility] Medical Records Department [address] [place] [address] H&P Exam - Hospitalist 01/18/25 1835 MR#: [id number] Acct: [id number] Name: CHARAN GARCIA Rep #:[id number] : 1960 64 From: Yris Rao MD PCP: Dr. Anne Arellano MD Status:ADM IN Location: [place] [id number] HPI - General General Date of Admission: 01/18/25 Date of Service: 01/19/25 Chief Complaint: Left hand weakness, left facial droop and slurred speech HPI Narrative CHARAN GARCIA, is a 64-year-old male with a history of GERD, hypertension, tobaccouse, CVA who presented to [facility] ED 01/18/2025 due to acute onset [...] to smoke but has been cutting back. [facility] Medical History (Updated 01/19/25 @ 13:06 [...] 87.7 H, Lymph % (Auto) 9.2 L, Oxford % (Auto) 2.7, Eos % (Auto) 0.0, [...] arterial occlusion or significant stenosis. Reading Location: [id number] Head/Neck CTA 01/18/25 17:00 IMPRESSION: 1. 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 2. No acute intracranial hemorrhage/hemorrhagic conversion, or mass-effect. 3. No intracranial or cervical large vessel arterial occlusion or significant stenosis. Reading Location: [id number] Assessment & Plan Assessment/Plan (1) Acute CVA [...] on an outpatient basis -Will need to residential child care counselor patient on importance of compliance #Hypertension - Was supposed to be taking losartan but apparently has not taking this -Will be holding antihypertensives as above, would recommend restarting before or on discharge #GERD -Continue PPI #Tobacco use -Advise cessation -Nicotine replacement available if desired #DVT ppx: SCDs Yris Rao MD Charges/Coding Visit Charges Inpatient E&M: 65020 Init Hosp L2 09/04/25 1306 <Electronically signed by Yris Rao MD> Cosigner Signature (if applicable): CC: Dr. Anne Arellano MD; Dr. Yris Rao MD~ Signed [facility] Work Phone: 1(663) 834-359409-04-2025 Hospital Discharge instructionsAdditional Instructions Do not take any Aleve, Advil, or extra aspirin for pain while you are on Plavix and aspirin. Do not take meloxicam. You may take Tylenol for pain. Do not smoke. [facility]: [facility]: 1(503) 896-966109-04-2025 Consult note [facility] Medical Records Department [address] [place] [address] Consultation - Neurology 01/19/25 1345 MR#: [id number] Acct: [id number] Name: CHARAN GARCIA Rep #:[id number] : 1960 64 From: Xander Beatty MD PCP: Dr. Anne Arellano MD Status:ADM IN Location: [place] [address] Assessment and Plan: Stroke Assessment/Plan CHARAN GARCIA [...] Diabetes Management - NA. A1C is ok,. local [employer] blood pressure control should achieve <130/80 mmHg. [...] given his age I would recommend YANCI. Substance Addiction Coordinator on discharge. Start with 30 days. IF need to can proceed with LINQ outpatient. - Referral to sleep medicine for sleep apnea testing. Followup with PCP in 1-2 weeks, and in Neurology clinic in 6-12 weeks HPI Consult Data Date of Consult: 01/19/25 HPI Narrative HPI Narrative: CHARAN GARCIA, is a 64 M who presents [facility] Medical History (Updated 01/19/25 @ 13:06 [...] 87.7 H, Lymph % (Auto) 9.2 L, Oxford % (Auto) 2.7, Eos % (Auto) 0.0, [...] % (Auto) 68.4, Lymph % (Auto) 19.7, Oxford% (Auto) 8.5, Eos % (Auto) 2.7, Baso [...] arterial occlusion or significant stenosis. Reading Location: [id number] Head/Neck CTA 01/18/25 17:00 IMPRESSION: 1. 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 2. No acute intracranial hemorrhage/hemorrhagic conversion, or mass-effect. 3. No intracranial or cervical large vessel arterial occlusion or significant stenosis. Reading Location: [id number] Brain MRI 01/19/25 09:00 IMPRESSION: Patchy foci of acute ischemia on the right side. Consider thromboembolic process. See above description. Reading Location: [id number] Active Medications Active Medications Active Medications: Current [...] and with change in RN caregiver. Freq: [id number] Protocol: Activity Type Activity Date Activity User E-sign Co-sign Detail Recorded Client Recorded Date Recorded By Document 01/19/25 10:00 CD [id number] 01/19/25 13:32 CD 01/19/25 10:00 NIH Stroke Scale [NIHSS] A score of 0 is normal or asymptomatic . Total possible score is [...] 2 Query Text:A score of 0 is normal or asymptomatic. Total possible score is 42 [...] applicable): CC: Dr. Anne Arellano MD~ Signed [facility]09-04-2025 History and physical note [facility] Medical Records Department [address] [place] [address] H&P Exam - Hospitalist 01/18/25 1835 MR#: [id number] Acct: [id number] Name: CHARAN GARCIA Rep #:[id number] : 1960 64 From: Yris Rao MD PCP: Dr. Anne Arellano MD Status:ADM IN Location: [place] [address] HPI - General General Date of Admission: 01/18/25 Date of Service: 01/19/25 Chief Complaint: Left hand weakness, left facial droop and slurred speech HPI Narrative CHARAN GARCIA, is a 64-year-old male with a history of GERD, hypertension, tobaccouse, CVA who presented to [facility] ED 01/18/2025 due to acute onset [...] to smoke but has been cutting back. [facility] Medical History (Updated 01/19/25 @ 13:06 [...] 87.7 H, Lymph % (Auto) 9.2 L, Oxford % (Auto) 2.7, Eos % (Auto) 0.0, [...] arterial occlusion or significant stenosis. Reading Location: [id number] Head/Neck CTA 01/18/25 17:00 IMPRESSION: 1. 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 2. No acute intracranial hemorrhage/hemorrhagic conversion, or mass-effect. 3. No intracranial or cervical large vessel arterial occlusion or significant stenosis. Reading Location: [id number] Assessment & Plan Assessment/Plan (1) Acute CVA [...] on an outpatient basis -Will need to residential child care counselor patient on importance of compliance #Hypertension - Was supposed to be taking losartan but apparently has not taking this -Will be holding antihypertensives as above, would recommend restarting before or on discharge #GERD -Continue PPI #Tobacco use -Advise cessation -Nicotine replacement available if desired #DVT ppx: SCDs Yris Rao MD Charges/Coding Visit Charges Inpatient E&M: 15087 Init Hosp L2 01/19/25 1306 Cosigner Signature (if applicable): CC: Dr. Anne Arellano MD; Dr. Yris Rao MD~ Signed [facility]09-03-2025 Discharge summary Author Jorge Villareal [facility] Note Date/Time January 18, 2025 7:02pm [facility] Medical Records Department [address] [place] [address] Emergency Department Summary 01/18/25 MR#: [id number] Acct: [id number] Name: CHARAN GARCIA Rep #:[id number] : 1960 64 From: Jorge Bell PCP: Dr. Anne Arellano MD Status:ADM IN Location: [address] History of Present Illness Chief Complaint: [facility] Medical History (Updated 01/18/25 @ 17:54 [...] MEDICAL DECISION MAKING: Chief Complaint: please see [facility] External records reviewed: Reviewed prior medications. No anticoagulants noted. The patient is on aspirin and Plavix however. Reviewed prior imaging studies: Reviewed MRI of the brain from 2022 which showed subacute ischemic infarct in the right upper alessio Factors affecting care: as per [facility] Social determinants of health: History of tobacco [...] Per stroke neurology recommendation will admit to [facility] for MRI and risk factor modification. [...] to PCU This note was generated with Alianza dictation software. It may contain incorrect words, [...] 87.7 H Lymph % (Auto) 9.2 L Oxford % (Auto) 2.7 Eos % (Auto) 0.0 [...] arterial occlusion or significant stenosis. Reading Location: [id number] Head/Neck CTA 01/18/25 17:00 IMPRESSION: 1. 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 2. No acute intracranial hemorrhage/hemorrhagic conversion, or mass-effect. 3. No intracranial or cervical large vessel arterial occlusion or significant stenosis. Reading Location: [id number] Discharge Plan Triage Chief Complaint: Neuro S/Sx [...] MD [Primary Care Provider] - Print Language: Tristanian What to do if you have Problems For any increased pain, shortness of breath, bleeding, nausea or vomiting, chestpain, or any unexpected problems, contact your Primary Care Provider. Call [facility] ([phone]) or report to the closest Emergency Room. Call 911 if necessary. 01/18/251901 <Electronically signed by Jorge Villareal DO> Cosigner Signature (if applicable): CC: Dr. Anne Arellano MD ~ Signed [facility] Work Phone: 1(689) 172-751309-03-2025 Evaluation note* Diagnosis Onset Date Resolution Status Admit Date Acute CVA (cerebrovascular accident) acute January 18 025 6:35pm [facility] Work Phone: 1(562) 323-901409-03-2025 Discharge summary [facility] Medical Records Department [address] [place] [address] Emergency Department Summary 01/18/25 MR#: [id number] Acct: [id number] Name: CHARAN GARCIA Rep #:[id number] : 1960 64 From: Jorge Bell PCP: Dr. Anne Arellano MD Status:ADM IN Location: [address] History of Present Illness Chief Complaint: Neuro S/Sx [facility] Medical History (Updated 01/18/25 @ 17:54 by [...] Ox 96 Oxygen Delivery Method [facility] Narrative Medical decision making narrative: HISTORY OF [...] reviewed, Vital signs reviewed Constitutional: please see [facility] HENT: MMM Eyes: Pupils equal round and [...] MEDICAL DECISION MAKING: Chief Complaint: please see [facility] External records reviewed: Reviewed prior medications. No [...] neurology (Dr. Reyes), internal medicine (Dr. Rao) [facility] Narrative: The patient was initially hemodynamically stable, [...] Per stroke neurology recommendation will admit to [facility] for MRI and risk factor modification. [...] to PCU This note was generated with Alianza dictation software. It may contain incorrect words, [...] 87.7 H Lymph % (Auto) 9.2 L Oxford % (Auto) 2.7 Eos % (Auto) 0.0 [...] arterial occlusion or significant stenosis. Reading Location: [id number] Head/Neck CTA 01/18/25 17:00 IMPRESSION: 1. 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 2. No acute intracranial hemorrhage/hemorrhagic conversion, or mass-effect. 3. No intracranial or cervical large vessel arterial occlusion or significant stenosis. Reading Location: [id number] Discharge Plan Triage Chief Complaint: Neuro S/Sx [...] MD [Primary Care Provider] - Print Language: Tristanian What to do if you have Problems For any increased pain, shortness of breath, bleeding, nausea or vomiting, chestpain, or any unexpected problems, contact your Primary Care Provider. Call [facility] ([phone]) or report tothe closest Emergency Room. Call 911 if necessary. 01/18/25 1902 Cosigner Signature (if applicable): CC: Dr. Anne Arellano MD ~ Signed [facility]09-03-2025 Radiology Diagnostic study note [facility] Imaging Services [address] [place] [address] Wrist min 3 Views MR#: [id number] Acct: [id number] Name: CHARAN GARCIA Rep #: [id number] : 1960 M 64 From: Daniela Haji MD PCP: Dr. Anne Arellano MD Status: REG CL I Study:Wrist min 3 Views Date of Exam: Exam# [id number] Ordering Dr: Yaritza Arellano MD EXAM: XR [...] 3. Degenerative changes as above. Reading Location: [facility] CC: Dr. Anne Arellano MD ~ Company Driver: Signed [facility]09-03-2025 Radiology Diagnostic study note [facility] Imaging Services [address] [place], [place] [id number] STROKE Brain/Head without Cont MR#: [id number] Acct: [id number] Name: CHARAN GARCIA Rep #: [id number] : 1960 M 64 From: Ryan Thomas MD PCP: Dr. Anne Arellano MD Status: REG ER Study:STROKE Brain/Head without Cont Date of Exam: 01/18/25 Exam# [id number] Ordering Dr: Bubba Villareal DO PROCEDURE: STROKE [...] arterial occlusion or significant stenosis. Reading Location: [id number] CC: Dr. Anne Arellano MD; Dr. Jorge Villareal DO ~ Company Driver: Signed [facility]09-03-2025 Radiology Diagnostic study note [facility] Imaging Services [address] [place], [place] [address] STROKE CTA Head AND Neck W/Con MR#: [id number] Acct: [id number] Name: CHARAN GARCIA Rep #: [id number] : 1960 M 64 From: Ryan Thomas MD PCP: Dr. Anne Arellano MD Status: REG ER Study:STROKE CTA Head AND Neck W/Con Date of Exam: 01/18/25 Exam# [id number] Ordering Dr: Bubba Villareal DO PROCEDURE: STROKE [...] arterial occlusion or significant stenosis. Reading Location: [id number] CC: Dr. Anne Arellano MD; Dr. Jorge Villareal DO ~ Company Driver: Signed [facility]04-09-2025 Radiology Diagnostic study note [facility] Imaging Services [address] [place] [id number] Chest, Abd, Pel w/Contrast MR#: [id number] Acct: [id number] Name: CHARAN GARCIA Rep #: [id number] : 1960 M 64 From: Jannie Gomez MD PCP: Dr. Anne Arellano MD Status: REG CL I Study:CT Chest, Abd, Pel w/Contrast Date of E xam: 08/23/24 Exam# [id number] Ordering Dr: Roby Dang DO PROCEDURE: CT [...] *Diverticulosis within the sigmoid colon. Reading Location: [facility] CC: Dr. Anne Arellano MD; Oliver Friend, ~ Company Driver: Signed [facility]03-05-2025 Evaluation note* Diagnosis Onset Date Resolution Status Admit Date Gastroesophageal reflux disease none active July 20, 2024 1:42pm [facility] Work Phone: 1(513) 802-947701-15-2024 Hospital Discharge instructions Patient Education 06/01/2023 10:26:46 Steps to Quit Smoking, Rhhq-nn-Qkgy Steps to Quit Smoking Smoking tobacco is [...] a prescription, and some you can buy rjla-rks-kzpxneh. Some medicines may contain a drug called [...] as websites. Examples include QuitGuide from the [facility] and smokefree.gov What things can I do to make it easier to quit? Talk to your family and friends. Ask them to support and encourage you. Call a phone quitline (0-175-PAAPNOW), reach out to support groups, or work [...] 02/28/2010 Document Revised: 07/22/2019 Document Reviewed: 07/23/2019 [employer] logo Patient Education 2020 [employer]. 06/01/2023 10:26:43 Smoking Tobacco Information, Adult Smoking [...] quitting smoking from: HelpGuide.org: www.helpguide.org Smokefree.gov: smokefree.gov [place]: www.lung.org Contact a health care [...] 05/19/2017 Document Revised: 06/23/2018 Document Reviewed: 05/19/2017 [employer] logo Patient Education 2020 [employer]. 06/01/2023 10:26:39 Coping with Quitting Smoking Coping [...] ?Suck on hard candies or a straw. ?[place] your teeth. Keep your hands and body [...] group. Call a quit line, such as 4-696-OZLBNutriniaNOW. Talk with your health care provider about [...] 05/01/2017 Document Revised: 04/16/2018 Document Reviewed: 05/01/2017 [employer] logo Patient Education 2020 [employer]. 06/01/2023 10:26:09 Monitored Anesthesia Care, Care After [...] before eating solid foods. General instructions Take pwht-ken-ksudual and prescription medicines only as told by [...] 08/24/2016 Document Revised: 08/02/2018 Document Reviewed: 08/24/2016 [employer] logo Patient Education 2020 [employer]. 06/01/2023 10:26:04 Esophagogastroduodenoscopy, Care After (31694) Esophagogastroduodenoscopy, Care After Refer to this sheet [...] 04/20/2013 Document Revised: 10/09/2016 Document Reviewed: 03/27/2016 [employer] logo Interactive Patient Education 2019 [employer] logo Inc. Follow Up Care 05/13/2023 11:35:08 With:CHASIDY LAURENT MD [address] [address] [phone] When: Unknown Comments:CALL DR LAURENT WITH ANY QUESTONS OR CONCERNS. GO TO THE EMERGENCY ROOM WITH ANY URGENT CONCERNS. [facility] 01-15-2024 Note Discharge Instructions Thank you for allowing [facility] to assist you with your healthcare needs. The following is importantdischarge information regarding your hospital visit. Your Care Team DR. LAURENT. Your Diagnosis Gastroesophageal reflux What to do next Follow Up Appointments Follow Up with CHASIDY LAURENT MD When Why: CALL DR LAURENT WITH ANY QUESTONS OR CONCERNS. GO TO THE EMERGENCY ROOM WITH ANY URGENT CONCERNS. Where: [address] [place] [address] [phone] The Following Activity and Diet Have Been [...] a prescription, and some you can buy fqvn-zdf-yfjaljk. Some medicines may contain a drug called [...] as websites. Examples include QuitGuide from the [employer] and smokefree.gov What things can I do to make it easier to quit? Talk to your family and friends. Ask them to support and encourage you. Call a phone quitline (4-898-JYWTNOW), reach out to support groups, or work [...] 02/28/2010 Document Revised: 07/22/2019 Document Reviewed: 07/23/2019 [employer] logo Patient Education 2020 DragonWave. Smoking Tobacco Information, Adult Smoking tobacco can [...] local community. Calling the smokefree.gov counselor helpline: 8-208-Qibr-Now ( ) Where to find more information You may find more information about quitting smoking from: HelpGuide.org: www.helpguide.org Smokefree.gov: smokefree.gov [place] [employer] Association: www.lung.org Contact a health care [...] 05/19/2017 Document Revised: 06/23/2018 Document Reviewed: 05/19/2017 [employer] logo Patient Education 2020 [employer] network logo Inc. Coping with Quitting Smoking Quitting smoking [...] on hard candies or a straw. ? [place] your teeth. Keep your hands and body [...] group. Call a quit line, such as 4-660-EMRW-NOW. Talk with your health care provider about [...] 05/01/2017 Document Revised: 04/16/2018 Document Reviewed: 05/01/2017 [employer] logo Patient Education 2020 DragonWave. Monitored Anesthesia Care, Care After These instructions [...] before eating solid foods. General instructions Take nnph-qls-nciryys and prescription medicines only as told by [...] 08/24/2016 Document Revised: 08/02/2018 Document Reviewed: 08/24/2016 [employer] logo Patient Education 2020 [employer] Inc. Esophagogastroduodenoscopy, Care After Refer to this [...] 04/20/2013 Document Revised: 10/09/2016 Document Reviewed: 03/27/2016 [employer] logo Interactive Patient Education 2019 [employer] logo Inc. Additional Information VACCINATE! IT SAVES LIVES! Members of the community who have not yet received the COVID-19 vaccine and would like to receive it can visit one of [facility] vaccine clinics. There are many vaccine clinic locations within the [facility]. For locations and available times, please visit https://gettheshot.coronavirus.[place].gov/. It is important to note that some COVID mobile vaccine clinics are held outdoors and may be canceled in rainy or stormy conditions. To learn more about pediatric vaccinations (ages 5-11), we invite you to visit the [facility] webpage. https://www.[facility].org/pages/5431-Gwxbm-Majpqxpptae-Fxdbkohujk-Mpwbt-Cef stions.htmlTo learn more about the COVID-19 vaccine, we invite you to visit the CDC website for a list of frequently asked questions.https://www.cdc.gov/coronavirus/2019-ncov/vaccines/faq.html [facility] Patient Portal Access Instructions: Stay connected with your healthcare team and access your personal medical information anytime with the [facility] Patient Portal. Please follow the directions below to create your [facility] account: 1.Access the email account you provided upon registration to the hospital/physician office.2.Look for an invitation email from [facility].3.Open the email and access the invitation link: AcceptInvitation to [facility].4.Fill in the required juarez to create your account. To access your account, visit [email or web address]. Click the blue button labeled Access Patient Portal and then log in with the username and password that you created in the steps above. You will be able to view your test results, lab results, a summary of your visits, upcoming appointments and more. There is also a convenient messaging option where you can send secure messages to your [email or web address]. In addition, you will have the ability to download any documents or summaries to your computer and/or send the information securely to a physician. Remember that your healthcare information is confidential, so carefully consider who you will allowto register on the [facility] Patient Portal for access to your information. You can also access the [facility] Patient Portal on the [facility] mirela. Simply click on Patient Portal and then log into your account. If you would like to receive a full copy of your medical records, please contact the [facility] Medical Records Department by calling [phone], Thursday through Thursday between 8 a.m. and [...] Call your local pharmacy or go to http://bit.ly/5N9Wr1o to find one close to you.3.Make use of household items: Use cat litter or old coffee grounds to dispose medications if other options arenot available. Mix your drugs with these household products, seal them in an airtight container andthrow it into the garbage. Call [facility]: [phone] to be sure your drugs can be [...] Patient Education Materials Steps to Quit Smoking, Mchh-vr-Zzkk Smoking Tobacco Information, Adult Coping with Quitting Smoking Monitored Anesthesia Care, Care After Esophagogastroduodenoscopy, Care After (24594) Medication Leaflets My discharge plan and instructions have been reviewed and explained to me and I,CHARAN GARCIA understand my current condition and have read and understand these discharge instructions. I have receiveda written copy of the plan/instructions. If I have questions, I am aware that I should contact my do ctor. 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 Comments: 06/01/2023 8:24 EST - Lida May RN fracture right ankle with metal fixation. Colonoscopy ([id number]). 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 [phone] Designated Person #1 Relationship Spouse Privacy Restrictions [...] evident Teaching Method Explanation Preferred Spoken Language Tristanian Preferred Written Language Tristanian Teaching Evaluation No further teaching needed Safety Brochure Information Reviewed Unable to complete [facility] Video Viewed No Information Given by Patient Patient's Current Physicians dr frederick (pramod) Discharge To, Anticipated Home with family care Prev Test Positive/Diagnosis w/COVID-19 Yes Previous COVID-19 Positive Date 2017 Current Quarantine/Isolated any Illness No Any Contact with Sick Animals/Birds No Traveled Anywhere in Last 30 Days No Lost Weight Unintentionally Recently No Eat Poorly Due to Decreased Appetite No Total MST Score 0 N/A Personal Devices, Patient Valuables None Admission Note-Nursing Same Day Patient History . Assessment and Plan [place] Society of Anesthesiologists (ASA) physical status classification: Class III. Anesthetic Preoperative Plan Anesthetic technique: MAC. Informed consent: signed by patient. 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 GERD ? Patient is on narj-hsn-znemuop PPI prescribed Protonix in the hospital 5.. 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 N.B. : The above Results [...] [facility] Discontinued naproxen 500 MG tablet 500 mg PO BID PRN (Reason: pain) Referrals / Follow Up: Care Physician,No Primary [Primary Care Provider] - Within 2 Weeks Disposition Disposition (needs filled in before D/C Order can be placed): Home, Self Care Charges/Coding Visit Charges Inpatient E&M: 68621 Disch Hosp >30min 11/28/22 1053 <Electronically signed by Charan Martinez MD> Cosigner Signature (if applicable): CC: Dr. Charan Martinez MD; No Primary Care Physician~ Signed [facility] Work Phone: 1(425) 534-273407-14-2023 Progress note Author Charan Martinez [facility] November 28, 2022 10:45am Note Date/Time November 28, 2022 8:14 am [facility] Medical Records Department [address] [place] [id number] Progress Note - Hospitalist 11/28/22811 MR#: [id number] Acct: [id number] Name: JOSECHARANARABELLA Rep #:[id number] : 1960 62 From: Charan Martinez MD PCP: Care Physician,No Primary Status :ADM IN Location: [place] [address] Reason for Visit Reason for Visit: Diagnoses [...] right to left interatrial shunt. Ordering Physician: Chraan Martinez Performed By: Hortensia Ayala and Student Brain MRI 11/27/22 10:55 IMPRESSION: Prominent subacute ischemic infarct in the right upper alessio extending from the belly to the right paracentral pontine tegmentum extending from the belly of the alessio and smaller subacute ischemic infarcts in the peripheral aspect of the right upper pontine tegmentum. 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 N.B. 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 GERD ? Patient is on kcnb-gny-scljbex PPI prescribed Protonix in the hospital 5.. Tobacco dependence - Counseled on cessation, offered nicotine patch for tobacco cravings 6. DVT prophylaxis - On enoxaparin Time spent in the patient's overall evaluation,decision-making process, review of diagnostic data, adjustment of management, discussion with other providers, nursing nursing and ancillary staff involved in patient's care documentation, 35minutes Charges/Coding Visit Charges Inpatient E&M: 69937 Subs Hosp L2 11/28/22 1045 <Electronically signed by Charan Martinez MD> Cosigner Signature (if applicable): CC: ~ Signed [facility] Work Phone: 1(495) 332-434807-13-2023 Progress note Author Charan Martinez [facility] November 27, 2022 12:11pm Note Date/Time November 27, 2022 8:13 am [facility] Medical Records Department [address] [place] [address] Progress Note - Hospitalist 11/27/22811 MR#: [id number] Acct: [id number] Name: CHARAN GARCIA Rep #:[id number] : 1960 62 From: Charan Martinez MD PCP: Care Physician,No Primary Status :ADM LAURI Location: [place] [address] Reason for Visit Reason for Visit: Diagnoses [...] 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 GERD ? Patient is on jwmu-qgy-cfxiqoa PPI prescribed Protonix in the hospital 5.. Tobacco dependence - Counseled on cessation, offered nicotine patch for tobacco cravings 6. DVT prophylaxis - On enoxaparin Time spent in the patient's overall evaluation,decision-making process, review of diagnostic data, adjustment of management, discussion with other providers, nursing nursing and ancillary staff involved in patient's care documentation, 50minutes Charges/Coding Visit Charges Inpatient E&M: 97386 Subs Hosp L3 11/27/22 1211 <Electronically signed by Charan Martinez MD> Cosigner Signature (if applicable): CC: ~ Signed [facility] Work Phone: 1(563) 649-207407-12-2023 Discharge summary Author Noé Vasquez [facility] November 26, 2022 4:20pm Note Date/Time November 26, 2022 4:18 pm [facility] Medical Records Department [address] [place] [address] Emergency Department Summary 11/26/22 MR#: [id number] Acct: [id number] Name: CHARAN GARCIA Rep #:[id number] : 1960 62 From: Noé Vasquez DO PCP: Care Physician,No Primary Status :ADM LAURI Location: [place] [address] HPI History of Present Illness Chief Complaint: [...] nausea or vomiting, no other acute complaints. [facility] Medical History GERD (gastroesophageal reflux disease) [...] NIH 1, patient has slight difficulty with tjhekp-as-gojq testing on the left and also slight [...] % (Auto) 66.7 Lymph % (Auto) 21.5 [place] % (Auto) 8.3 Eos % (Auto) 2.6 [...] Tobacco abuse Disposition Disposition: Acute Care Hospital [facility] Discharge Date/Time: 11/26/22 15:58 What to do if you have Problems For any increased pain, shortness of breath, bleeding, nausea or vomiting, chestpain, or any unexpected problems, contact your Primary Care Provider. Call [facility] ([phone]) or report to the closest Emergency Room. Call 911 if necessary. 11/26/22 1620 <Electronically signed by Noé Vasquez DO> Cosigner Signature (if applicable): CC: No Primary Care Physician ~ Signed [facility] Work Phone: 1(792) 392-632007-12-2023 History and physical note Author Charan Martinez [facility] November 26, 2022 4:09pm Note Date/Time November 26, 2022 3:26 pm [facility] Medical Records Department [address] [place] [address] H&P Exam - Hospitalist 11/26/22 1525 MR#: [id number] Acct: [id number] Name: CHARAN GARCIA Rep #:[id number] : 1960 62 From: Charan Martinez MD PCP: Care Physician,No Primary Status :ADM LAURI Location: [facility] [id number] HPI - General General Date of [...] to a monitored bed for further manner [facility] Medical History GERD (gastroesophageal reflux disease) [...] % (Auto) 66.7, Lymph % (Auto) 21.5, [place] % (Auto) 8.3, Eos % (Auto) 2.6, Baso % (Auto) 0.7, Absolute Neuts (auto) 4.0, Absolute Lymphs (auto) 1.30, Nucleated RBC % 0, Platelet Estimate ADEQUATE,PT Cancelled, INR Cancelled, APTT Cancelled, Sodium 140, Potassium 3.5, Fkcmfusx201 H, Carbon Dioxide 24.0, Anion Gap 5, [...] monitoring 3. GERD ? Patient is on zfgm-yht-fdmvrtw PPI prescribed Protonix in the hospital 4. [...] 18 minutes. Charges/Coding Visit Charges Inpatient E&M: 91917 Init Hosp L3 Procedures Hospitalists Procedures: 89727 Advncd Care Plan 30 Min 11/26/22 1609 <Electronically signed by Charan Martinez MD> Cosigner Signature (if applicable): CC: Dr. Charan Martinez MD; No Primary Care Physician~ Signed [facility] Work Phone: Consult note Author Allison Santos [facility] November 28, 2022 11:58am Note Date/Time November 28, 2022 11:5 5am [facility] Medical Records Department [address] [place] [address] Counseling Note - Pharmacy 11/28/22 1154 MR#: [id number] Acct: [id number] Name: GARCIACHARAN Rep #:[id number] : 1960 62 From: Allison Santos PCP: Care Physician,No Primary Status :ADM IN Y Location: [place] [address] Pharmacy [facility] has performed discharge medication [...] 11/28/22 11/28/22 1158 <Electronically signed by Allison Regula > Date _ Allison Regula Cosigner Signature (if applicable): Date CC: ~ Signed [facility] Work Phone: Evaluation + Plan note No data available for this section [facility] Evaluation note* Diagnosis Onset Date Resolution Status Left-sided weakness acute TIA (transient ischemic attack) acute Tobacco abuse acute [facility] Work Phone: Evaluation note* Diagnosis Onset Date Resolution Status Tobacco abuse acute Left-sided weakness resolved TIA (transient ischemic attack) resolved [facility] Work Phone: Evaluation noteNo assessment information available [facility] Work Phone: Reason for referral (narrative)No reason for [facility] Work Phone: Chief Complaint and Reason for [...] Admit Date Acute CVA (cerebrovascular accident) Sep 2024 6:35pm Chief Complaint Admit Date WRIST PAIN WITH NUMBNESS January 17, 2025 2:25pm CVA January 18, 2025 6:35pm Cerebrovascular accident January 19, 2025 4:02pm Advance Directives No Advanced Directives Records Found Advance Directive Response Recorded Date/ Time Living Will No November 26, 2022 4:06pm Power of Plasma Processing Technician No November 26 4:06pm Advance Directive Response Recorded Date/ Time Living Will No June 12 8:26pm Do you have a Healthcare Power of Plasma Processing Technician? No June 12, 2024 8:26pm Advance Directive Response Recorded Date/ Time Do you have a Healthcare Power of Plasma Processing Technician? No January 18, 2025 5:49pm Advance Directive Response Recorded Date/ Time Do you have a Healthcare Power of Plasma Processing Technician? No January 18, 2025 7:05pm Summary Purpose [...] Care Provider Active Dr. Noé Vasquez , DO Emergency Provider Active Dr. Charan Martinez [...] August 26, 2024 End: August 26, 2024 [facility] SOLAR PHOTOVOLTAIC CREW LEAD, SOLAR PHOTOVOLTAIC CREW LEAD-C Attending Provider Active Start: August 26, 2024 [...] 2025 Team Status: Active Member Role/Relationship Status Dates Anne Arellano MD Primary Care Provider Active St art: January 19, 2025 Dr. Rafia Reyes MD Attending Provider Activ e Start: January 19, 2025 Team Status: Inactive Member Role/Relationship Status Dates Anne Arellano MD Primary Care Provider Active St art: January 17, 2025 End: January 17, 2025 Anne Arellano MD Attending Provider Active Start : January 17, 2025 End: January 17, 2025 Anne Arellano MD Referring Provider Active Start : January 17, 2025 End: January 17, 2025 Team Status: Active Member Role/Relationship Status Dates Anne Arellano MD Primary Care Provider Active St art: January 19, 2025 Dr. Jorge Villareal DO Emergency Provider Active Start: January 19, 2025 Dr. Yris Rao MD Admit Provider Active Star t: January 19, 2025 Dr. Yris Rao MD Other Provider Active Star t: January 19, 2025 Marcos Rogers MD Other Provider Active Start: 2024 Dr. Abeba Velasco MD Other Provider Active Start: January 19, 2025 Rosa M iTwari MD Other Provider Active Start : January [...] Provider Active St art: January 19, 2025 Chyeanne Thompson MD Other Provider Active Start : [...] section and content) DATE CREATED AUTHOR 06/08/2023 [facility] ([place]) DATE CREATED AUTHOR AUTHOR'S ORGANIZ ATION 03/27/2025 [facility] Goals (unrecognized section and content) Goals may [...] BE BASED ON THE PRIMARY CLINICAL RECORDS. [employer] [facility]. provides no warranty or guarantee of the accuracy or completeness of information in this document.
== END | disposition home or self-care (01) ==
LOC: PSN 10:08
PROVIDERS: PCP Family Medicine; Referring Provider Nurse Practitioner Acute Care; Visit Provider Nurse Practitioner Acute Care
DX: R06.02 Shortness of breath (principal)
CPT/HCPCS: 94060; 94726; 94729

== ENCOUNTER → 2025-05-16 | Outpatient (CLI) | payer MEDICARE, SELFPAY ==
[2025-05-16 10:15] VITALS: PULSE 65; PULSE 72; PULSE 80; PULSE 83; PULSE 84; PULSE 85; PULSE 89; PULSE 97; O2SAT 96; O2SAT 97; O2SAT 98; O2SAT 99
--- NOTE | 2025-05-17 11:27 | WT_ITS ---
PSN 6 Minute Walk Test 6 Minute Walk Test 6 Minute Walk Test: 6 Minute Walk Test PSN:6-Minute Walk Test Start: 05/16/25 10:32 Freq: Status: Active Protocol: [id number] Document 05/16/25 10:15 [facility] (Rec: 05/16/25 10:36 [facility] [id number]) 6 Minute Walk Test Date Performed 05/16/25 Time Performed 10:15 Height 5 ft 8 in Weight: 161 lb Weight in Pounds 161.[address]: [place] Assistive device None used: Pre-test Oxygen Delivery Room Air Method Pulse Ox (%) 99 Pulse Rate (60-100 65 beats/min) Dyspnea Scar Scale ( 0 0-10) Exertion Scar Scale 6 (6-20) 1st minute Oxygen Delivery Room Air Method Pulse Ox (%) 97 Pulse Rate (60-100 85 beats/min) 2nd minute Oxygen Delivery Room Air Method Pulse Ox (%) 97 Pulse Rate (60-100 80 beats/min) 3rd minute Oxygen Delivery Room Air Method Pulse Ox (%) 96 Pulse Rate (60-100 83 beats/min) 4th minute Oxygen Delivery Room Air Method Pulse Ox (%) 99 Pulse Rate (60-100 84 beats/min) 5th minute Oxygen Delivery Room Air Method Pulse Ox (%) 99 Pulse Rate (60-100 97 beats/min) 6th minute Oxygen Delivery Room Air Method Pulse Ox (%) 99 Pulse Rate (60-100 89 beats/min) Post-test Oxygen Delivery Room Air Method Pulse Ox (%) 98 Pulse Rate (60-100 72 beats/min) Full Laps Walked 16 Partial Lap, Number 15 of Tiles Walked Total Distance 959 Walked (ft) Interpretation Interpretation: The patient ambulated 959 feet over the course of 6 minutes beginning on room air without assistive devices. Pretesting oxygen saturation was noted to be 99% on room air. With ambulation, the alberto oxygen saturation was 96%. There was no significant exertional oxygen desaturation. Recommendations Recommendations: There is no indication for the use of supplemental oxygen at this time.
== END | disposition home or self-care (01) ==
LOC: PSN 10:00
PROVIDERS: PCP Family Medicine; Referring Provider Nurse Practitioner Acute Care; Visit Provider Nurse Practitioner Acute Care
DX: R06.02 Shortness of breath (principal)
CPT/HCPCS: 94618

== ENCOUNTER → 2025-05-16 | Outpatient (CLI) | payer MEDICARE, SELFPAY ==
--- NOTE | 2025-05-16 11:30 | PET_ITS ---
PROCEDURE: PET/CT TUMOR BASE -THIGH INIT 05/16/2025 REASON FOR EXAM: 65 y/o M with SOLITARY PULMONARY NODULE TECHNIQUE: Procedure Code: PETPTCTINIT Modality: PT Procedure: PET/CT TUMOR BASE -THIGH INIT Following the intravenous administration of radionucleotide, image acquisition on a dedicated PET/CT unit was performed at one hour post injection. A preliminary CT study encompassing the Skull base, neck, chest, abdomen, pelvis, and proximal thighs was performed for purposes of attenuation correction and anatomic localization. The proximal thighs were also included. The patient's blood glucose level was 78 mg/dL (allowable range: 50-180 mg/dL). RADIOPHARMACEUTICAL: 13.42 mCi 18F-FDG (Fluorodeoxyglucose F18) IV was injected into he patient. RADIATION DOSE SUMMARY: Effective Dose: Approximately 7 mSv for a standard whole-body PET scan Organ Doses: Varies by organ, with higher doses typically to the bladder, liver, and brain COMPARISON: COMPARISON FROM CT, PET OR OTHER PERTINENT EXAMS: Thoracic CT of 04/14/2025.. FINDINGS: Physiologic uptake: There may be expected metabolic uptake within the brain, tongue and floor of the mouth and larynx/vocal cords, heart, liv (many normal individuals have hilar uptake in less than 3 nodes with mildly avid hilar nodes less than 2.7 SUV), liver and spleen, system, and GI tract and symmetric muscle uptake. FDG AVID AND NON-AVID LESIONS. Reported avid SUV values (g/mL*) are maximum SUV. NECK: There are no significant neck abnormalities. CHEST: Chest wall- There are no significant chest wall abnormalities. Axilla- There are no significant axillary abnormalities. Lung parenchyma- Stable appearance of the cavitary lesion of the superior segment of the right lower lobe, with significant hypermetabolic activity in the olvera. SUV max is 7.3. Cannot exclude the presence of malignancy given this degree elevation of metabolic activity. Moderate emphysematous changes of the lungs are seen Mediastinum- There are no significant hilar or mediastinal adenopathy. Pleura- There are no significant pleural abnormalities. ABDOMEN: Yzng-ym-[place] aortic calcification; no evidence of abdominal aortic aneurysm. Stomach- No significant abnormalities. Liver- No significant abnormalities. Spleen- No significant abnormalities. Pancrease- No significant abnormalities. Kidneys- No significant abnormalities. Bowel- Normal bowel activity. Spine- No significant abnormalities. PELVIS: Bowel- Normal physiologic bowel activity is identified. Masses- There are no pelvic masses. Bones- Degenerative changes are seen throughout the spine, most prominent in the cervical spine. With the use of bone window settings, there are no osteolytic or osteoblastic lesions. There are no FDG avid lesions within the visualized portion of the axial skeleton. PET/PET/CT Tumor Base -Thigh Init IMPRESSION: FDG avid- Stable appearance of the cavitary lesion of the superior segment of the right l ower lobe, with significant hypermetabolic activity in the olvera. SUV max is 7.3. Cannot exclude the presence of malignan cy given this degree elevation of metabolic activity. Other: 1. Degenerative changes of the spine, most prominent in the cervical region. 2. [id number] aortic calcification; no evidence of abdominal aortic aneur ysm. 3. Moderate emphysematous changes of the lungs. Please note the low-dose CT scan was performed to facilitate PET image reconstr uction and anatomic localization and does not replace a diagnostic CT. Any diagnostic CT requested and performed at the time of the PET will be reported separately. Reading Location: [place] [id number]
== END | disposition home or self-care (01) ==
LOC: ONC 10:36
PROVIDERS: PCP Family Medicine; Referring Provider Family Medicine; Visit Provider Family Medicine
DX: R91.1 Solitary pulmonary nodule (principal)
CPT/HCPCS: 78815; A9552